=== PATIENT | female | born 1940 | race African-American/Black ===

== ENCOUNTER 2020-07-31 12:38 | Inpatient (IN) | payer MEDICARE, SELFPAY ==
--- NOTE | 2020-07-26 13:53 | P.CONAN_ITS ---
Documented by User: Diana Frank 07/28/20 11:57 HPI - Anesthesia Eval Consult details Narrative: 79yo F for R Tibial ORIF PMFSH Past Medical History Medical History (Updated 07/26/20 @ 13:58 by Diana Frank) Anemia Asthma Back pain COPD (chronic obstructive pulmonary disease) GERD (gastroesophageal reflux disease) Hypertension Osteoarthritis Family History Family history of problems with anesthesia: Unobtainable Surgical History Surgical History (Updated 07/26/20 @ 13:52 by Diana Frank) H/O of rectopexy H/O: hysterectomy History of bowel resection History of cholecystectomy History of Problems with Anesthesia: Unobtainable Social History Social History (Updated 07/31/20 @ 11:57 by Vielka Anton) Smoking Status: Former smoker Second Hand Smoke Exposure: No Use of substances other than those prescribed or required for medical reasons: No Have you been hit, kicked, punched, or otherwise hurt by someone within the past year? If so, by whom?: No Advance Directives: No Advance Directives Information Provided: Yes Advance Directives on File: No Recently lost weight without trying: No Meds Allergies Allergy/AdvReac Type Severity Reaction Status Date / Time codeine [Codeine] Allergy Mild RASH Unverified 07/13/20 14:37 Sulfa (Sulfonamide Allergy Mild HIVES Unverified 07/13/20 14:37 Antibiotics) [Sulfa (Sulfonamides)] acetaminophen Allergy Unknown Verified 12/28/19 00:00 [Tylenol-Codeine #3] ibuprofen [From Motrin] AdvReac Mild STOMACH Unverified 07/13/20 14:37 UPSET Motrin Allergy Unknown RECTAL Uncoded 12/28/19 00:00 BLEEDING, UPSET STOMACH Home Medications Medication Instructions Recorded Confirmed Type albuterol sulfate 1 vial INHALATION QID 07/28/20 07/28/20 History amlodipine 1 tab PO DAILY 07/28/20 07/28/20 History atorvastatin 1 tab PO DAILY 07/28/20 07/28/20 History xxznoeweto-zquuyskciglha-bxtb 1 tab PO BID PRN 07/28/20 07/28/20 History esomeprazole magnesium 1 cap PO DAILY 07/28/20 07/28/20 History fluoxetine 1 cap PO QAM 07/28/20 07/28/20 History hydralazine 1 tab PO BID 07/28/20 07/28/20 History lorazepam 1 tab PO BID 07/28/20 07/28/20 History meclizine 1 - 2 tab PO Q8H PRN 07/28/20 07/28/20 History montelukast 1 tab PO BEDTIME 07/28/20 07/28/20 History nystatin 5 ml PO QID 07/28/20 07/28/20 History oxycodone-acetaminophen 1 tab PO Q8H PRN 07/28/20 07/28/20 History prednisone 10 mg PO DAILY 07/28/20 07/28/20 History sodium chloride 1 vial INHALATION BID 07/28/20 07/28/20 History terazosin 1 cap PO BEDTIME 07/28/20 07/28/20 History Exam Exam Date and Time: July 26, 2020 1353 Pertinent Lab Results Pertinent Lab Results: EKG 07/13/20 = ST @ 101 Laboratory Tests 07/13/20 07/13/20 07/13/20 15:22 23:38 23:38 WBC 8.6 Hgb 8.0 L Hct 25.5 L Plt Count 143 L D PT INR Sodium 144 Potassium 4.8 Chloride 115 H Bicarbonate 21 L BUN 40 H Creatinine 2.38 H Direct Bilirubin 0.2 AST 34 H D ALT 25 Alkaline Phosphatase 108 Total Protein 6.0 L Albumin 3.5 Coronavirus (PCR) NEGATIVE 07/13/20 23:38 WBC Hgb Hct Plt Count PT 11.4 INR 1.0 Sodium Potassium Chloride Bicarbonate BUN Creatinine Direct Bilirubin AST ALT Alkaline Phosphatase Total Protein Albumin Coronavirus (PCR) Assessment and Plan Assessment Anesthesia Assessment: Chart Reviewed Documented by User: Vielka Anton 07/31/20 11:58 [facility] Past Medical History Medical History (Updated 07/26/20 @ 13:58 by Diana Frank) Anemia Asthma Back pain COPD (chronic obstructive pulmonary disease) GERD (gastroesophageal reflux disease) Hypertension Osteoarthritis Family History Family history of problems with anesthesia: No Surgical History Surgical History (Updated 07/26/20 @ 13:52 by Diana Frank) H/O of rectopexy H/O: hysterectomy History of bowel resection History of cholecystectomy History of Problems with Anesthesia: No Social History Social History (Updated 07/31/20 @ 11:57 by Vielka Anton) Smoking Status: Former smoker Second Hand Smoke Exposure: No Use of substances other than those prescribed or required for medical reasons: No Have you been hit, kicked, punched, or otherwise hurt by someone within the past year? If so, by whom?: No Advance Directives: No Advance Directives Information Provided: Yes Advance Directives on File: No Recently lost weight without trying: No Meds Allergies Allergy/AdvReac Type Severity Reaction Status Date / Time codeine [Codeine] Allergy Mild RASH Unverified 07/13/20 14:37 Sulfa (Sulfonamide Allergy Mild HIVES Unverified 07/13/20 14:37 Antibiotics) [Sulfa (Sulfonamides)] acetaminophen Allergy Unknown Verified 12/28/19 00:00 [Tylenol-Codeine #3] ibuprofen [From Motrin] AdvReac Mild STOMACH Unverified 07/13/20 14:37 UPSET Motrin Allergy Unknown RECTAL Uncoded 12/28/19 00:00 BLEEDING, UPSET STOMACH Home Medications Medication Instructions Recorded Confirmed Type albuterol sulfate 1 vial INHALATION QID 07/28/20 07/28/20 History amlodipine 1 tab PO DAILY 07/28/20 07/28/20 History atorvastatin 1 tab PO DAILY 07/28/20 07/28/20 History qhfgbvufyt-qucakhosywfyv-wywv 1 tab PO BID PRN 07/28/20 07/28/20 History esomeprazole magnesium 1 cap PO DAILY 07/28/20 07/28/20 History fluoxetine 1 cap PO QAM 07/28/20 07/28/20 History hydralazine 1 tab PO BID 07/28/20 07/28/20 History lorazepam 1 tab PO BID 07/28/20 07/28/20 History meclizine 1 - 2 tab PO Q8H PRN 07/28/20 07/28/20 History montelukast 1 tab PO BEDTIME 07/28/20 07/28/20 History nystatin 5 ml PO QID 07/28/20 07/28/20 History oxycodone-acetaminophen 1 tab PO Q8H PRN 07/28/20 07/28/20 History prednisone 10 mg PO DAILY 07/28/20 07/28/20 History sodium chloride 1 vial INHALATION BID 07/28/20 07/28/20 History terazosin 1 cap PO BEDTIME 07/28/20 07/28/20 History Exam Height,Weight and Vital Signs: Vital Signs Temp Pulse Resp BP Pulse Ox 07/31/20 10:14 99.9 F 85 18 156/88 H 98 Airway Mallampati Class: II TM Dist: >3cm Neck ROM: Full Loose/Missing/Broken Teeth: Yes Heart: RRR Lungs: CTAB
[2020-07-28 11:07] VITALS: BMI 17.2
[2020-07-31] VITALS (23 sets, daily range): BP systolic 156–202; BP diastolic 79–106; PULSE 72–98; RESP 12–20; TEMP 35.9–37.7; O2SAT 92–99
[2020-07-31] MEDS: Lactated Ringers 1,000 ML 50 ML IVCONT (10:15)
--- NOTE | 2020-07-31 10:37 | FL_ITS ---
EXAMINATION: XR FLUOROSCOPY CLINICAL INFORMATION: ORIF right lateral tibial plateau fracture COMPARISON: Previous x-ray and CT of the right knee 07/13/2020 TECHNIQUE: Fluoroscopic guidance was provided for ORIF of the right lateral tibial plateau fracture. Fluoroscopy time 2.4 minutes. Cumulative dose 7 mgy. 2 saved fluoroscopic images. FINDINGS: There are 2 laterally placed screws and increased attenuation likely representing cement transfixing the lateral tibial plateau fracture with improved alignment. There is arthritis at the medial femoral tibial patellofemoral joints. IMPRESSION: Fluoroscopic guidance for ORIF of lateral tibial plateau fracture.
[2020-07-31 11:15] LABS: Hematocrit 27.3 % (37-47); Hemoglobin 8.4 g/dl (12.0-16.0); Mean Corpuscular HGB Conc 30.8 g/dl (31.0-35.0); Mean Corpuscular Hemoglobin 28.7 pg (27.0-33.0); Mean Corpuscular Volume 93.2 fL (80-98); Mean Platelet Volume 9.4 fL (9.4-12.3); Platelet Count 288 X10*3/uL (160-400); Red Blood Count 2.93 X10*6/uL (4.20-5.50); Red Cell Distribution Width 13.4 % (11.0-16.0); White Blood Count 4.5 X10*3/uL (4.8-10.8)
[2020-07-31 11:46] LABS: Anion Gap 11 (12-20); Blood Urea Nitrogen 32 mg/dL (9-16); Calcium 8.7 mg/dL (8.4-10.2); Carbon Dioxide 21 mmol/L (22-29); Chloride 113 mmol/L (96-108); Creatinine Clr Calc Pharmacy 18.5; Estimated Glomerular Filt Rate 25; Glucose Fasting 86 mg/dL (60-99); Potassium 5.4 mmol/l (3.3-5.1); Sodium 140 mmol/L (135-145)
[2020-07-31] MEDS: 0.9 % Sodium Chloride 500 ML 100 ML IV (13:00)
[2020-07-31] MEDS: oxyCODONE HCl Immed Release 5 MG TABLET PO ×2 (13:01→18:22)
--- NOTE | 2020-07-31 13:03 | PM.PRCOR ---
Brief Operative Note Date of procedure: 08/01/20 Pre-op diagnosis: right knee lateral tibial plateau fracture Post-op diagnosis: same Procedure: ORIF RIGHT LATERAL TIBIAL PLATEAU WITH BONE GRAFT Anesthesia: VIKYA Surgeon: Yessenia Huitron Estimated blood loss (mL): 10 Condition: stable Disposition: PACU
--- NOTE | 2020-07-31 13:08 | P.CONIM_ITS ---
History of Present Illness Data of Consult Service Date: 07/31/20 Requesting physician: Yessenia Huitron Primary Care Provider: Fran Alegria MD [facility] Reason for consult: Medical Management 79 year old woman admitted by Orthopedic surgery. Surgery was unremarkable. Vital signs are stable. She has been able to eat without any nausea or vomiting. a moderate amount of pain. She has no other acute medical complaints at this time Review of Systems Review of Systems: Denies any recent fever chills or decrease in appetite respiratory denies any shortness of breath coverage production cardiovascular is adjustment of any PND or edema gastrointestinal denies any dysphagia abdominal pain nausea vomiting or diarrhea genitourinary denies any dysuria frequency or hematuria musculoskeletal right knee pain status post total knee arthroplasty with pinning neuropsych denies any weakness or seizures all other systems reviewed are negative PENDING SALE TO [facility] Medical History Anemia Asthma Back pain COPD (chronic obstructive pulmonary disease) GERD (gastroesophageal reflux disease) Hypertension Osteoarthritis Pertinent family history: no cardiac disease Surgical History H/O of rectopexy H/O: hysterectomy History of bowel resection History of cholecystectomy Social History Household Members: Family and Other Housing: Apartment Do you presently have visiting nurse or other home services: Yes (physical therapy) Smoking Status: Former smoker Smoked in Last 30 Days: No Second Hand Smoke Exposure: No Use of substances other than those prescribed or required for medical reasons: Yes Substance Use Type: Marijuana Substance Use Frequency: Occasionally Last Used Substance: Unknown Currently Displaying Signs/Symptoms of Drug Intoxication Withdrawal: No Any prior treatment program specific to substance use: No Have you been hit, kicked, punched, or otherwise hurt by someone within the past year? If so, by whom?: No Do you feel safe in your current relationship?: No Current Relationship Is there a partner from a previous relationship who is making you feel unsafe now?: No Are you made to feel afraid or neglected: No Advance Directives: No Advance Directives Information Provided: Yes Advance Directives on File: No Do you have thoughts of harming others: None Do you have a plan to hurt others: No Plan Recently lost weight without trying: Yes Meds Allergies Allergy/AdvReac Type Severity Reaction Status Date / Time codeine [Codeine] Allergy Mild RASH Verified 07/31/20 16:43 Sulfa (Sulfonamide Allergy Mild HIVES Verified 07/31/20 16:43 Antibiotics) [Sulfa (Sulfonamides)] ibuprofen [From Motrin] AdvReac Mild STOMACH Verified 07/31/20 16:43 UPSET Motrin Allergy Unknown RECTAL Uncoded 07/31/20 16:43 BLEEDING, UPSET STOMACH Home Medications Medication Instructions Recorded Confirmed Type albuterol sulfate 1 vial INHALATION QID 07/28/20 07/28/20 History amlodipine 1 tab PO DAILY 07/28/20 07/28/20 History atorvastatin 1 tab PO DAILY 07/28/20 07/28/20 History lpmedywhdx-ztfxwbliodnjp-gkns 1 tab PO BID PRN 07/28/20 07/28/20 History esomeprazole magnesium 1 cap PO DAILY 07/28/20 07/28/20 History fluoxetine 1 cap PO QAM 07/28/20 07/28/20 History hydralazine 1 tab PO BID 07/28/20 07/28/20 History lorazepam 1 tab PO BID 07/28/20 07/28/20 History meclizine 1 - 2 tab PO Q8H PRN 07/28/20 07/28/20 History montelukast 1 tab PO BEDTIME 07/28/20 07/28/20 History nystatin 5 ml PO QID 07/28/20 07/28/20 History oxycodone-acetaminophen 1 tab PO Q8H PRN 07/28/20 07/28/20 History prednisone 10 mg PO DAILY 07/28/20 07/28/20 History sodium chloride 1 vial INHALATION BID 07/28/20 07/28/20 History terazosin 1 cap PO BEDTIME 07/28/20 07/28/20 History Physical Exam Vital Signs and Narrative: Vital Signs: Last Vital Signs Temp 98.1 F 07/31/20 12:49 Pulse 90 07/31/20 12:49 Resp 12 07/31/20 12:49 BP 166/99 H 07/31/20 12:49 Pulse Ox 97 07/31/20 12:49 Body Mass Index 17.2 Appearing in no acute distress head is normocephalic atraumatic eyes pupils are PERRLA sclera is anicteric mouth throat mucous membranes are intact and moist neck is supple no lymphadenopathy, no JVD noted lung sounds are clear to auscultation heart regular rate rhythm, clear S1, S2 positive bowel sounds, abdomen is soft, nontender musculoskeletal status post right total knee arthroplasty. Brace intact dressing clean dry and intact. neuro patient is alert x3, no focal deficits Results Labs Labs: Laboratory Tests 07/31/20 07/31/20 10:32 10:32 WBC 4.5 L RBC 2.93 L Hgb 8.4 L Hct 27.3 L MCV 93.2 MCH 28.7 MCHC 30.8 L RDW 13.4 Plt Count 288 MPV 9.4 Absolute Nucleated RBC 0.000 Nucleated RBC % (auto) 0.0 Sodium 140 Potassium 5.4 H Chloride 113 H Carbon Dioxide 21 L Anion Gap 11 L BUN 32 H Creatinine 1.90 H Estim Creat Clear Calc 18.5 Estimated GFR 25 Fasting Glucose 86 Calcium 8.7 Assessment and Plan (1) COPD (chronic obstructive pulmonary disease): Status: Acute (2) Hypertension: Status: Acute (3) Hyperlipidemia: Status: Inactive (4) GERD (gastroesophageal reflux disease): Status: Inactive 79-year-old woman status post right knee arthroplasty. Right knee arthroplasty. Management as per surgical team. Pain management. Hypertension. Stable blood pressure. Continue home medications. COPD. No exacerbation. Continue albuterol as needed. Hyperlipidemia. Continue statin. DVT prophylaxis with full-dose aspirin Discussed with Dr. Xochitl Mendoza code
[2020-07-31] MEDS: Morphine Sulfate 2 MG/ML CARTRIDGE IVPUSH ×4 (14:00→21:45)
[2020-07-31] MEDS: 0.9 % Sodium Chloride 1,000 ML 80 ML IVCONT (14:49)
[2020-07-31] MEDS: ceFAZolin Sodium/Dextrose,Iso 2 GM/50 ML PIGGYBACK IV (18:23)
[2020-07-31] MEDS: Acetaminophen 325 MG TABLET 650 MG PO (21:41)
[2020-08-01] VITALS (18 sets, daily range): BP systolic 134–169; BP diastolic 66–89; PULSE 81–109; RESP 17–19; TEMP 36.2–36.8; O2SAT 96–100
[2020-08-01] MEDS: 0.9 % Sodium Chloride Flush 3 ML SYRINGE 2 ML IVFLUSH ×4 (00:08→15:33)
[2020-08-01] MEDS: Morphine Sulfate 2 MG/ML CARTRIDGE IVPUSH ×7 (00:09→21:18)
[2020-08-01] MEDS: oxyCODONE HCl Immed Release 5 MG TABLET PO ×4 (01:41→20:07)
[2020-08-01] MEDS: Acetaminophen 325 MG TABLET 650 MG PO ×4 (02:39→20:12)
[2020-08-01] MEDS: 0.9 % Sodium Chloride 1,000 ML 80 ML IVCONT (02:56)
[2020-08-01 06:56] LABS: Hematocrit 24.5 % (37-47); Hemoglobin 7.6 g/dl (12.0-16.0)
[2020-08-01] MEDS: amLODIPine Besylate 5 MG TABLET PO (10:13)
--- NOTE | 2020-08-01 12:24 | MHC.CM.PN ---
nurse medicare specialist note electronic medical record reviewed along with case discussed on multiple disciplianry rounds and with orthopedic surgical pa, and physical /'occupatyional theaprist , met with patient she was very alert and orientated x3 , cali was sitting in her achair and had just fininshed eating her breakfeast, she reported denis the address we have for her was incorrect new address [address] and phone -[phone] she informed me that her health care proxy was her daughter per mcguire [phone] she lives with her sister in law in a house 2 floor 1/2 bathroom downstairs and full bathroom and her bedroom updstairs she has a cane ,walker , shoeeeewer chair and shower bars . she reported to be that she has igor ctive with the [facility] for nrusing and home phsyical thepary and [facility] are for 1 hour daily for home health aide , she confirmed her pcp as dr yuli burk. she has been in rehab at [facility] she would ra5her go home vs rehab , but after talking with her daughter and patient she is wiling to go back to [facility] based on physical /ccupational recomendatiuns , she reuqires assistance with ad[facility] at [facility] she has a nebuizer for her copd and puffers for her asthma disc harge plan retunr back to [facility] post discharge from rtehab [facility] for ([id number]) and resumption ooooooof her servcies with [facility] home health aide transportation action bls vs action wheelchair van (based on patient needs) medicare imm reviewed and given to her
--- NOTE | 2020-08-01 14:38 | P.PNOP_ITS ---
Subjective Subjective Interval history: POD 1 s/p RT knee ORIF tibial plateau. She has some pain in the knee but tolerating well. Denies chest pain. SOB. palpitations. Physical Exam Vital Signs and I&O and Narrative: Vital Signs and I&O: Vital Signs Temp 98.3 F 08/01/20 12:00 Pulse 88 08/01/20 12:00 Resp 18 08/01/20 12:00 BP 138/71 08/01/20 12:00 Pulse Ox 97 08/01/20 12:00 Intake & Output 07/31/20 08/01/20 08/01/20 18:59 06:59 18:59 Intake Total 1104 / 2239.333 1135.333 / 2239.33 3 Output Total 600 / 1354 754 / 1354 1100 / 1100 Balance 504 / 885.333 381.333 / 885.333 -1100 / -1100 Urine Output (Aver age ml/kg/hr) 1.00 1.17 1.84 Intake: Intake, Oral Mariya unt 100 / 220 120 / 220 Intake, IV Amoun t 1004 / 2019.333 1015.333 / 2019.33 3 ceFAZolin Sodi um/Dextrose,Iso 2 50 / 50 gm In 50 ml @ 100 mls/hr IV ONCE@1700 ONE Rx#:[id number] 0.9 % Sodium C hloride 1,000 ml 4 / 969.333 965.333 / 969.333 @ 80 mls/hr IV CONT .[id number] [facility] Rx#:[id number] Lactated Ringe rs 1,000 ml @ 50 1000 / 1000 mls/hr IVCONT .Q20H [facility] Rx#: [id number] Output: Output, Urine Am ount 600 / 1303 703 / 1303 1100 / 1100 Output, Post Voi d Residual 51 / 51 Amount Other: Meal Refused No NPO No Breakfast % Eate n 75% Dinner % Eaten 100% Number of Incont inent Voids 51 Weight of Urine Diapers 650 Urine Bedpan Bedpan Urine Color Pale Yellow Tea Body Mass Index 17.2 Const: General: cooperative, healthy appearing and no acute distress Resp: Effort & Inspection: normal respiratory effort and able to speak in complete sentences Cardio: Rate: regular rate Peripheral pulses: Peripheral pulses 2+ throughout GI: Inspection: Yes normal to inspection Palpation (GI): Soft to palpation Skin: General skin exam: no rashes or lesions noted Extrem: Other: Right knee skin intact. no erythema, mild edema, calf supple non tender Progress Note: A&P Assessment and plan (1) Tibial plateau fracture, right: Status: Acute Assessment and Plan: Cont pain mgmnt PT/OT-NWB RLE Immob in place asa for dvt ppx dispo planning-PT eval/pain mgmnt Fall Risk Details Current Medications: Current Medications Generic Name Dose Route Start Last Admin Trade Name Freq PRN Reason Stop Dose Admin Acetaminophen 650 mg 07/31/20 11:58 Acetaminophen 325 Mg Tablet PO ONCE PRN Pain, Mild (Pain Scale 1-3) Acetaminophen 650 mg 07/31/20 14:00 08/01/20 07:50 Acetaminophen 325 Mg Tablet PO 650 mg Q6H TONIO Administration Acetaminophen/Butalbital/Caffeine 1 tab 07/31/20 23:34 08/01/20 00:14 Butalb/Acetamin/Caff 50/325/40 1 Tab Tablet PO 1 tab BID PRN Administration headache Albuterol Sulfate 2.5 mg 07/31/20 10:04 Albuterol Sulfate (0.083%) 2.5 Mg/3 Ml Vial.Neb INHALE ONCE PRN Shortness of Breath/Wheezing Albuterol Sulfate 2.5 mg 07/31/20 11:58 Albuterol Sulfate (0.083%) 2.5 Mg/3 Ml Vial.Neb INHALE ONCE PRN Wheezing Albuterol Sulfate 2.5 mg 08/01/20 13:00 Albuterol Sulfate (0.083%) 2.5 Mg/3 Ml Vial.Neb INHALE RQID TONIO Amlodipine Besylate 5 mg 08/01/20 09:00 08/01/20 10:13 Amlodipine Besylate 5 Mg Tablet PO 5 mg DAILY TONIO Administration Protocol Aspirin 325 mg 08/01/20 22:00 Aspirin 325 Mg Tablet PO BID [facility] Atorvastatin Calcium mg 08/02/20 09:00 Atorvastatin Calcium 80 Mg Tablet PO DAILY [facility] Doxazosin Mesylate 1 mg 08/01/20 21:00 Doxazosin Mesylate 1 Mg Tablet PO BEDTIME [facility] Fluoxetine HCl 40 mg 08/02/20 09:00 Fluoxetine Hcl 20 Mg Capsule PO DAILY [facility] Hydralazine HCl 10 mg 08/01/20 21:00 Hydralazine Hcl 10 Mg Tablet PO BID [facility] Protocol Montelukast Sodium 10 mg 08/01/20 21:00 Montelukast Sodium 10 Mg Tablet PO BEDTIME [facility] Morphine Sulfate 2 mg 07/31/20 12:40 08/01/20 10:14 Morphine Sulfate 2 Mg/Ml Cartridge IVPUSH 2 mg Q2H PRN Administration Pain, Severe (Pain Scale 7-10) Non-Formulary Medication 1 cap 08/02/20 09:00 Esomeprazole Magnesium PO DAILY [facility] Ondansetron HCl 4 mg 07/31/20 11:58 Ondansetron Hcl 4 Mg/2 Ml Vial IVPUSH ONCE PRN Nausea and Vomiting Ondansetron HCl 4 mg 07/31/20 12:40 Ondansetron Hcl 4 Mg/2 Ml Vial IVPUSH Q8H PRN Nausea and Vomiting Oxycodone HCl 5 mg 07/31/20 11:58 Oxycodone Hcl Immed Release 5 Mg Tablet PO ONCE PRN Pain, Mild (Pain Scale 1-3) Oxycodone HCl 5 mg 07/31/20 12:40 08/01/20 06:43 Oxycodone Hcl Immed Release 5 Mg Tablet PO 5 mg Q6H [facility] Administration Sodium Chloride 2 ml 07/31/20 16:00 08/01/20 07:49 0.9 % Sodium Chloride Flush 3 Ml Syringe IVFLUSH 2 ml QSHIFT TONIO Administration Time Spent With Patient Time: Total time spent is greater than 50% in coordination of care (as documented) at patient's floor/unit and/or counseling patient: Time with patient: 15 - 24 minutes
--- NOTE | 2020-08-01 15:24 | HO.POSTANES ---
Post Anesthesia Evaluation Post Anesthesia Evaluation Vital Signs: Vital Signs Temp Pulse Resp BP Pulse Ox 08/01/20 15:14 98.3 F 101 H 19 138/70 96 08/01/20 12:00 98.3 F 88 18 138/71 97 08/01/20 10:13 87 134/66 08/01/20 10:11 87 18 134/66 08/01/20 09:42 86 158/75 H 98 08/01/20 08:00 98.1 F 86 18 158/75 H 98 08/01/20 05:10 17 08/01/20 04:00 97.6 F 81 19 169/81 H 98 Anesthesia: General Mental Status: Awake Pain Control: Satisfactory Nausea/Vomiting: None Hydration: Adequate Anesthesia-Related Issues: No Anes. Related Issues
--- NOTE | 2020-08-01 16:41 | HO.PM.IMPN ---
Subjective Subjective Date of Service: 08/01/20 Interval History: admitted for elective right knee surgery, this a.m. patient complaining of right knee pain received pain medication few minutes ago. Patient offers no other acute complaints. Review of Systems [employer] no headache, no dizziness. CVS no chest pain, no palpitations. Gastrointestinal no nausea, no vomiting no diarrhea. Physical Exam Vital Signs and I&O and Narrative: Vital Signs and I&O: Vital Signs Temp 97.2 F 08/01/20 16:15 Pulse 88 08/01/20 16:15 Resp 18 08/01/20 16:15 BP 148/68 H 08/01/20 16:15 Pulse Ox 100 08/01/20 16:15 Intake & Output 07/31/20 08/01/20 08/01/20 18:59 06:59 18:59 Intake Total 1104 / 2239.333 1135.333 / 2239.33 3 1960 / 1959 Output Total 600 / 1354 754 / 1354 1800 / 1800 Balance 504 / 885.333 381.333 / 885.333 160 / 160 Urine Output (Aver age ml/kg/hr) 1.00 1.17 3.01 Intake: Intake, Oral [place] unt 100 / 220 120 / 220 960 / 960 Intake, IV Amoun t 1004 / 2019.333 1015.333 / 2019.33 3 1000 / 1000 ceFAZolin Sodi um/Dextrose,Iso 2 50 / 50 gm In 50 ml @ 100 mls/hr IV ONCE@1700 ONE Rx#:[id number] 0.9 % Sodium C hloride 1,000 ml 4 / 969.333 965.333 / 842.619 7321 / 1000 @ 80 mls/hr IV CONT .[id number] [facility] Rx#:[id number] Lactated Ringe rs 1,000 ml @ 50 1000 / 1000 mls/hr IVCONT .Q20H [facility] Rx#: [id number] Output: Output, Urine Am ount 600 / 1303 703 / 1303 1800 / 1800 Output, Post Voi d Residual 51 / 51 Amount Other: Meal Refused No Yes NPO No Yes Breakfast % Eate n 100% Lunch % Eaten 100% Dinner % Eaten 100% Number of Incont inent Voids 51 2 Weight of Urine Diapers 650 Urine Bedpan Bedpan Urine Color Pale Yellow Tea Body Mass Index 17.2 Neck supple ,no JVD noted lung clear to auscultation, no respiratory distress heart regular rate rhythm, clear S1, S2 Gastrointestinal positive bowel sounds, abdomen is soft, nontender musculoskeletal Brace to right leg, dressing clean dry and intact. neuro patient is alert x3, no focal deficits Objective Data Current Medications Generic Name Dose Route Start Last Admin Trade Name Geovanniq PRN Reason Stop Dose Admin Acetaminophen 650 mg 07/31/20 11:58 Acetaminophen 325 Mg Tablet PO ONCE PRN Pain, Mild (Pain Scale 1-3) Acetaminophen 650 mg 07/31/20 14:00 08/01/20 14:41 Acetaminophen 325 Mg Tablet PO 650 mg Q6H [facility] Administration Acetaminophen/Butalbital/Caffeine 1 tab 07/31/20 23:34 08/01/20 00:14 Butalb/Acetamin/Caff 50/325/40 1 Tab Tablet PO 1 tab BID PRN Administration headache Albuterol Sulfate 2.5 mg 07/31/20 10:04 Albuterol Sulfate (0.083%) 2.5 Mg/3 Ml Vial.Neb INHALE ONCE PRN Shortness of Breath/Wheezing Albuterol Sulfate 2.5 mg 07/31/20 11:58 Albuterol Sulfate (0.083%) 2.5 Mg/3 Ml Vial.Neb INHALE ONCE PRN Wheezing Albuterol Sulfate 2.5 mg 08/01/20 13:00 Albuterol Sulfate (0.083%) 2.5 Mg/3 Ml Vial.Neb INHALE RQID [facility]ONIO Amlodipine Besylate 5 mg 08/01/20 09:00 08/01/20 10:13 Amlodipine Besylate 5 Mg Tablet PO 5 mg DAILY [facility] Administration Protocol Aspirin 325 mg 08/01/20 22:00 Aspirin 325 Mg Tablet PO BID [facility] Atorvastatin Calcium mg 08/02/20 09:00 Atorvastatin Calcium 80 Mg Tablet PO DAILY [facility] Doxazosin Mesylate 1 mg 08/01/20 21:00 Doxazosin Mesylate 1 Mg Tablet PO BEDTIME [facility] Fluoxetine HCl 40 mg 08/02/20 09:00 Fluoxetine Hcl 20 Mg Capsule PO DAILY [facility] Hydralazine HCl 10 mg 08/01/20 21:00 Hydralazine Hcl 10 Mg Tablet PO BID [facility] Protocol Montelukast Sodium 10 mg 08/01/20 21:00 Montelukast Sodium 10 Mg Tablet PO BEDTIME [facility] Morphine Sulfate 2 mg 07/31/20 12:40 08/01/20 15:55 Morphine Sulfate 2 Mg/Ml Cartridge IVPUSH 2 mg Q2H PRN Administration Pain, Severe (Pain Scale 7-10) Non-Formulary Medication 1 cap 08/02/20 09:00 Esomeprazole Magnesium PO DAILY [facility] Ondansetron HCl 4 mg 07/31/20 11:58 Ondansetron Hcl 4 Mg/2 Ml Vial IVPUSH ONCE PRN Nausea and Vomiting Ondansetron HCl 4 mg 07/31/20 12:40 Ondansetron Hcl 4 Mg/2 Ml Vial IVPUSH Q8H PRN Nausea and Vomiting Oxycodone HCl 5 mg 07/31/20 11:58 Oxycodone Hcl Immed Release 5 Mg Tablet PO ONCE PRN Pain, Mild (Pain Scale 1-3) Oxycodone HCl 5 mg 07/31/20 12:40 08/01/20 14:40 Oxycodone Hcl Immed Release 5 Mg Tablet PO 5 mg Q6H [facility] Administration Sodium Chloride 2 ml 07/31/20 16:00 08/01/20 15:33 0.9 % Sodium Chloride Flush 3 Ml Syringe IVFLUSH 2 ml QSHIFT [facility]ONIO Administration Labs CBC & Chem 7: 08/01/20 06:08 07/31/20 10:32 Assessment and Plan (1) Tibial plateau fracture, right: Status: Acute (2) COPD (chronic obstructive pulmonary disease): Status: Acute (3) Hypertension: Status: Acute (4) Chronic anemia: Status: Acute Assessment and Plan: 79-year-old woman status post right knee arthroplasty. Right knee arthroplasty. due to right knee lateral tibial plateau fracture postoperative day 1 Management as per surgical team. will encourage incentive spirometry out of bed anticoagulation per surgery acute on chronic anemia patient is aware that she is chronically anemic but not aware of her diagnosis prior iron studies B12 folate are within normal range since patient is asymptomatic will hold off on transfusion. Hypertension. blood pressure elevated will resume home medication Norvasc 5 mg at home patient take Norvasc 10 mg and hydralazine 10 mg b.i.d. follow blood pressure closely COPD. No exacerbation. Continue albuterol as needed. Hyperlipidemia. Continue statin. DVT prophylaxis with full-dose aspirin Full code
[2020-08-01] MEDS: Albuterol Sulfate (0.083%) 2.5 MG/3 ML VIAL.NEB INHALE (20:05)
[2020-08-01] MEDS: Montelukast Sodium 10 MG TABLET PO (21:21)
[2020-08-01] MEDS: hydrALAZINE HCl 10 MG TABLET PO (21:21)
[2020-08-01] MEDS: Aspirin 325 MG TABLET PO (21:22)
[2020-08-01] MEDS: Doxazosin Mesylate 1 MG TABLET PO (21:22)
[2020-08-02] VITALS (9 sets, daily range): BP systolic 100–151; BP diastolic 49–90; PULSE 92–111; RESP 16–19; TEMP 36.1–36.9; O2SAT 95–100
[2020-08-02] MEDS: 0.9 % Sodium Chloride Flush 3 ML SYRINGE 2 ML IVFLUSH ×3 (00:21→18:08)
[2020-08-02] MEDS: Morphine Sulfate 2 MG/ML CARTRIDGE IVPUSH ×6 (00:27→21:30)
[2020-08-02] MEDS: Acetaminophen 325 MG TABLET 650 MG PO ×4 (02:15→21:30)
[2020-08-02] MEDS: oxyCODONE HCl Immed Release 5 MG TABLET PO ×3 (05:36→19:11)
[2020-08-02 06:54] LABS: Hematocrit 25.5 % (37-47); Hemoglobin 7.8 g/dl (12.0-16.0)
[2020-08-02] MEDS: Aspirin 325 MG TABLET PO ×2 (08:37→21:30)
[2020-08-02] MEDS: Omeprazole 20 MG CAPSULE.DR PO (08:37)
[2020-08-02] MEDS: FLUoxetine HCl 20 MG CAPSULE 40 MG PO (08:38)
[2020-08-02] MEDS: amLODIPine Besylate 5 MG TABLET PO (08:38)
[2020-08-02] MEDS: Atorvastatin Calcium 10 MG TABLET PO (08:38)
[2020-08-02] MEDS: hydrALAZINE HCl 10 MG TABLET PO ×2 (08:38→21:29)
[2020-08-02] MEDS: Albuterol Sulfate (0.083%) 2.5 MG/3 ML VIAL.NEB INHALE ×3 (11:54→19:46)
--- NOTE | 2020-08-02 12:50 | P.PNIM_ITS ---
Subjective Subjective Date of Service: 08/02/20 Interval History: admitted to orthopedic service due to right tibial plateau fracture patient complaining of right leg pain and constipation otherwise denies any other acute symptoms of chest pain palpitation, lightheadedness or dizziness. Review of Systems General no headache no dizziness no fever chills. CVS no chest pain, no palpitation. Respiratory no cough no sputum production no respiratory distress. Gastrointestinal no nausea no vomiting, no abdominal pain Complaining of constipation. Physical Exam Vital Signs and I&O and Narrative: Vital Signs and I&O: Vital Signs Temp 97.6 F 08/02/20 11:48 Pulse 95 08/02/20 11:48 Resp 19 08/02/20 11:48 BP 112/53 L 08/02/20 11:48 Pulse Ox 95 08/02/20 11:48 Intake & Output 08/01/20 08/02/20 08/02/20 18:59 06:59 18:59 Intake Total 1960 / 2580 620 / 2580 Output Total 2300 / 3860 1560 / 3860 Balance -340 / -1280 -940 / -1280 Urine Output (Aver age ml/kg/hr) 3.84 2.61 Intake: Intake, Oral [place] unt 960 / 1580 620 / 1580 Intake, IV Amoun t 1000 / 1000 0.9 % Sodium C hloride 1,000 ml 1000 / 1000 @ 80 mls/hr IV CONT .[id number] [facility] Rx#:[id number] Output: Output, Urine Am ount 2300 / 3860 1560 / 3860 Other: Meal Refused Yes NPO Yes Breakfast % Eate n 100% Lunch % Eaten 100% Dinner % Eaten 100% Evening Snack % Eaten 100 Number of Incont inent Voids 2 Urine Bedside Commode Bedside Commode Urine Color Yellow Yellow Body Mass Index 17.2 General patient resting comfortably in no acute distress. Neck is supple no JVD. CVS regular rate rhythm, Respiratory lungs clear to auscultation, no respiratory distress, no wheeze, no rhonchi. Gastrointestinal abdomen soft, nontender, bowel sounds audible, no no guarding , no rigidity. Extremities right knee dressing in place, no swelling. Neuro nonfocal ,speech clear. Skin no rash Objective Data Current Medications Generic Name Dose Route Start Last Admin Trade Name Freq PRN Reason Stop Dose Admin Acetaminophen 650 mg 07/31/20 11:58 Acetaminophen 325 Mg Tablet PO ONCE PRN Pain, Mild (Pain Scale 1-3) Acetaminophen 650 mg 07/31/20 14:00 08/02/20 08:38 Acetaminophen 325 Mg Tablet PO 650 mg Q6H [facility] Administration Acetaminophen/Butalbital/Caffeine 1 tab 07/31/20 23:34 08/01/20 00:14 Butalb/Acetamin/Caff 50/325/40 1 Tab Tablet PO 1 tab BID PRN Administration headache Albuterol Sulfate 2.5 mg 07/31/20 10:04 Albuterol Sulfate (0.083%) 2.5 Mg/3 Ml Vial.Neb INHALE ONCE PRN Shortness of Breath/Wheezing Albuterol Sulfate 2.5 mg 07/31/20 11:58 Albuterol Sulfate (0.083%) 2.5 Mg/3 Ml Vial.Neb INHALE ONCE PRN Wheezing Albuterol Sulfate 2.5 mg 08/01/20 13:00 08/02/20 12:02 Albuterol Sulfate (0.083%) 2.5 Mg/3 Ml Vial.Neb INHALE Not Given RQID [facility] Amlodipine Besylate 5 mg 08/01/20 09:00 08/02/20 08:38 Amlodipine Besylate 5 Mg Tablet PO 5 mg DAILY [facility] Administration Protocol Aspirin 325 mg 08/01/20 22:00 08/02/20 08:37 Aspirin 325 Mg Tablet PO 325 mg BID [facility] Administration Atorvastatin Calcium 10 mg 08/02/20 09:00 08/02/20 08:38 Atorvastatin Calcium 10 Mg Tablet PO 10 mg DAILY [facility] Administration Doxazosin Mesylate 1 mg 08/01/20 21:00 08/01/20 21:22 Doxazosin Mesylate 1 Mg Tablet PO 1 mg BEDTIME [facility] Administration Fluoxetine HCl 40 mg 08/02/20 09:00 08/02/20 08:38 Fluoxetine Hcl 20 Mg Capsule PO 40 mg DAILY [facility] Administration Hydralazine HCl 10 mg 08/01/20 21:00 08/02/20 08:38 Hydralazine Hcl 10 Mg Tablet PO 10 mg BID [facility] Administration Protocol Montelukast Sodium 10 mg 08/01/20 21:00 08/01/20 21:21 Montelukast Sodium 10 Mg Tablet PO 10 mg BEDTIME [facility] Administration Morphine Sulfate 2 mg 07/31/20 12:40 08/02/20 08:44 Morphine Sulfate 2 Mg/Ml Cartridge IVPUSH 2 mg Q2H PRN Administration Pain, Severe (Pain Scale 7-10) Omeprazole 20 mg 08/02/20 06:45 08/02/20 08:37 Omeprazole 20 Mg Capsule.Dr PO 20 mg DAILY@0600 [facility] Administration Ondansetron HCl 4 mg 07/31/20 11:58 Ondansetron Hcl 4 Mg/2 Ml Vial IVPUSH ONCE PRN Nausea and Vomiting Ondansetron HCl 4 mg 07/31/20 12:40 Ondansetron Hcl 4 Mg/2 Ml Vial IVPUSH Q8H PRN Nausea and Vomiting Oxycodone HCl 5 mg 07/31/20 11:58 Oxycodone Hcl Immed Release 5 Mg Tablet PO ONCE PRN Pain, Mild (Pain Scale 1-3) Oxycodone HCl 5 mg 07/31/20 12:40 08/02/20 05:36 Oxycodone Hcl Immed Release 5 Mg Tablet PO 5 mg Q6H [facility] Administration Sodium Chloride 2 ml 07/31/20 16:00 08/02/20 08:39 0.9 % Sodium Chloride Flush 3 Ml Syringe IVFLUSH 2 ml QSHIFT [facility] Administration Labs CBC & Chem 7: 08/02/20 06:21 07/31/20 10:32 Assessment and Plan (1) Tibial plateau fracture, right: Status: Acute (2) Chronic anemia: Status: Acute (3) COPD (chronic obstructive pulmonary disease): Status: Acute Assessment and Plan: Right knee arthroplasty. due to right knee lateral tibial plateau fracture postoperative day 2 Management as per surgical team. will encourage incentive spirometry out of bed anticoagulation per surgery, Will add stool softeners due to constipation and increased dose of oxycodone to 7.5 mg due to persistent pain. acute on chronic anemia patient is aware that she is chronically anemic but not aware of her diagnosis prior iron studies B12 folate are within normal range since patient is asymptomatic will hold off on transfusion, repeat hematocrit remains stable. Hypertension. blood pressure is stable continue Norvasc 5 mg, at home patient take Norvasc 10 mg, continue hydralazine 10 mg b.i.d. follow blood pressure closely if noted to have elevated blood pressure will resume Norvasc 10 mg. COPD. No exacerbation. Continue albuterol as needed. Hyperlipidemia. Continue statin. DVT prophylaxis with full-dose aspirin disposition to rehab facility as per Ortho recommendation
[2020-08-02] MEDS: Docusate Sodium 100 MG CAPSULE 200 MG PO (13:37)
--- NOTE | 2020-08-02 14:19 | PM.PNORT ---
Subjective Subjective Interval history: postop day 2 status post ORIF right tibial plateau fracture. No overnight events. Her H and H is low but this has been determined to be chronic anemia. She has been out of bed working with therapy with no issues. Denies shortness of breath or chest pain. Physical Exam Vital Signs and I&O and Narrative: Vital Signs and I&O: Vital Signs Temp 97.6 F 08/02/20 11:48 Pulse 95 08/02/20 11:48 Resp 19 08/02/20 11:48 BP 112/53 L 08/02/20 11:48 Pulse Ox 95 08/02/20 11:48 Intake & Output 08/01/20 08/02/20 08/02/20 18:59 06:59 18:59 Intake Total 1960 / 2580 620 / 2580 Output Total 2300 / 3860 1560 / 3860 Balance -340 / -1280 -940 / -1280 Urine Output (Aver age ml/kg/hr) 3.84 2.61 Intake: Intake, Oral [place] unt 960 / 1580 620 / 1580 Intake, IV Amoun t 1000 / 1000 0.9 % Sodium C hloride 1,000 ml 1000 / 1000 @ 80 mls/hr IV CONT .[id number] [facility] Rx#:[id number] Output: Output, Urine Am ount 2300 / 3860 1560 / 3860 Other: Meal Refused Yes NPO Yes Breakfast % Eate n 100% Lunch % Eaten 100% Dinner % Eaten 100% Evening Snack % Eaten 100 Number of Incont inent Voids 2 Urine Bedside Commode Bedside Commode Urine Color Yellow Yellow Body Mass Index 17.2 Const: General: cooperative, healthy appearing and no acute distress Resp: Effort & Inspection: normal respiratory effort and able to speak in complete sentences Cardio: Rate: regular rate Peripheral pulses: Peripheral pulses 2+ throughout GI: Inspection: Yes normal to inspection Palpation (GI): Soft to palpation Skin: General skin exam: no rashes or lesions noted Extrem: Other: right knee skin intact. No erythema mild swelling. Progress Note: A&P Assessment and plan (1) Tibial plateau fracture, right: Status: Acute Assessment and Plan: Continue pain management monitor H&H continue PT disposition planning- pending Covid test and insurance auth Fall Risk Details Current Medications: Current Medications Generic Name Dose Route Start Last Admin Trade Name Freq PRN Reason Stop Dose Admin Acetaminophen 650 mg 07/31/20 11:58 Acetaminophen 325 Mg Tablet PO ONCE PRN Pain, Mild (Pain Scale 1-3) Acetaminophen 650 mg 07/31/20 14:00 08/02/20 13:37 Acetaminophen 325 Mg Tablet PO 650 mg Q6H [facility] Administration Acetaminophen/Butalbital/Caffeine 1 tab 07/31/20 23:34 08/01/20 00:14 Butalb/Acetamin/Caff 50/325/40 1 Tab Tablet PO 1 tab BID PRN Administration headache Albuterol Sulfate 2.5 mg 07/31/20 10:04 Albuterol Sulfate (0.083%) 2.5 Mg/3 Ml Vial.Neb INHALE ONCE PRN Shortness of Breath/Wheezing Albuterol Sulfate 2.5 mg 07/31/20 11:58 Albuterol Sulfate (0.083%) 2.5 Mg/3 Ml Vial.Neb INHALE ONCE PRN Wheezing Albuterol Sulfate 2.5 mg 08/01/20 13:00 08/02/20 12:02 Albuterol Sulfate (0.083%) 2.5 Mg/3 Ml Vial.Neb INHALE Not Given RQID [facility]IO Amlodipine Besylate 5 mg 08/01/20 09:00 08/02/20 08:38 Amlodipine Besylate 5 Mg Tablet PO 5 mg DAILY [facility] Administration Protocol Aspirin 325 mg 08/01/20 22:00 08/02/20 08:37 Aspirin 325 Mg Tablet PO 325 mg BID [facility] Administration Atorvastatin Calcium 10 mg 08/02/20 09:00 08/02/20 08:38 Atorvastatin Calcium 10 Mg Tablet PO 10 mg DAILY [facility] Administration Docusate Sodium 200 mg 08/02/20 13:15 08/02/20 13:37 Docusate Sodium 100 Mg Capsule PO 200 mg DAILY [facility] Administration Doxazosin Mesylate 1 mg 08/01/20 21:00 08/01/20 21:22 Doxazosin Mesylate 1 Mg Tablet PO 1 mg BEDTIME [facility] Administration Fluoxetine HCl 40 mg 08/02/20 09:00 08/02/20 08:38 Fluoxetine Hcl 20 Mg Capsule PO 40 mg DAILY [facility] Administration Hydralazine HCl 10 mg 08/01/20 21:00 08/02/20 08:38 Hydralazine Hcl 10 Mg Tablet PO 10 mg BID [facility]ONIO Administration Protocol Montelukast Sodium 10 mg 08/01/20 21:00 08/01/20 21:21 Montelukast Sodium 10 Mg Tablet PO 10 mg BEDTIME [facility] Administration Morphine Sulfate 2 mg 07/31/20 12:40 08/02/20 13:44 Morphine Sulfate 2 Mg/Ml Cartridge IVPUSH 2 mg Q2H PRN Administration Pain, Severe (Pain Scale 7-10) Omeprazole 20 mg 08/02/20 06:45 08/02/20 08:37 Omeprazole 20 Mg Capsule.Dr PO 20 mg DAILY@0600 [facility] Administration Ondansetron HCl 4 mg 07/31/20 11:58 Ondansetron Hcl 4 Mg/2 Ml Vial IVPUSH ONCE PRN Nausea and Vomiting Ondansetron HCl 4 mg 07/31/20 12:40 Ondansetron Hcl 4 Mg/2 Ml Vial IVPUSH Q8H PRN Nausea and Vomiting Oxycodone HCl 5 mg 07/31/20 11:58 Oxycodone Hcl Immed Release 5 Mg Tablet PO ONCE PRN Pain, Mild (Pain Scale 1-3) Oxycodone HCl 5 mg 07/31/20 12:40 08/02/20 13:37 Oxycodone Hcl Immed Release 5 Mg Tablet PO 5 mg Q6H [facility] Administration Senna 17.2 mg 08/02/20 13:06 Sennosides 8.6 Mg Tablet PO Q24H PRN Sodium Chloride 2 ml 07/31/20 16:00 08/02/20 08:39 0.9 % Sodium Chloride Flush 3 Ml Syringe IVFLUSH 2 ml QSHIFT TONIO Administration Time Spent With Patient Time: Total time spent is greater than 50% in coordination of care (as documented) at patient's floor/unit and/or counseling patient: Time with patient: less than 15 minutes
[2020-08-02] MEDS: Doxazosin Mesylate 1 MG TABLET PO (21:29)
[2020-08-02] MEDS: Montelukast Sodium 10 MG TABLET PO (21:29)
--- NOTE | 2020-08-02 23:47 | OP_ITS ---
SURGEON: Yessenia Huitron MD PREOPERATIVE DIAGNOSIS: Right knee lateral tibial plateau fracture. POSTOPERATIVE DIAGNOSIS: Right knee lateral tibial plateau fracture. PROCEDURE PERFORMED: Open reduction and internal fixation of right lateral tibial plateau fracture with bone graft. ESTIMATED BLOOD LOSS: COMPLICATIONS: ANESTHESIA: ASSISTANTS: SPECIMENS: CLINICAL NOTE: This lady had fallen nearly a couple of weeks ago, injuring her knee. She suffered the above-noted injury. After explaining the risks, benefits, and alternatives, and answering all the questions and being medically cleared, it was mutually agreed upon to carry out the following procedure. DESCRIPTION OF PROCEDURE: Under a general anesthetic, the patient was placed supine on the operating table. Pneumatic tourniquet cuff was placed around the upper right thigh, inflated to 300 mmHg at the beginning of the case. The right knee was then prepped and draped in standard fashion with the right leg free. Surgical time-out was then performed. The patient was identified, procedure confirmed, site confirmed. Medical analogy and history were reviewed. Preoperative antibiotics were given. Standard DVT prophylaxis was in place. All other items were discussed and agreed upon. A midline incision was made from just below the inferior pole of the patella to just past the tibial tubercle. Hemostasis was achieved along the way using electrocautery. The soft tissues were elevated directly off the bolts subperiosteally in the lateral compartment in revealing the lateral side of the proximal tibia. Under fluoroscopic guidance, the drill hole was made in the metaphyseal region. This could lead us to the area of the centrally located depression fracture. Following this, using a tamp under fluoroscopic guidance, the surface was elevated to anatomical position. Once this was confirmed, Neda 7.5 mm in total was then prepared and packed into the wound. Fluoroscopy demonstrated that it to completely fill the cavity. Following this, 2 parallel screws, full threaded, at the guidewire checked, measured, drilled, and the appropriate length screw was chosen to support the surface. At this point, the fracture was excellently reduced. It was bone grafted and screws in appropriate position and therefore proceeded to closure. Wound was irrigated. The lateral compartment was loosely approximated using interrupted 0 Dexon. The skin was approximated using interrupted 2-0 Dexon. Skin was closed with V-Loc suture, Dermabond, and Steri-Strips. Sterile dressing was then applied. The knee was placed in a knee immobilizer. The tourniquet was let down. Total tourniquet time of 50 minutes. The anesthesia was then reversed and transferred supine to the room bed and then taken to recovery room in good condition. Intraoperatively, there was 10 mL blood loss. No complications. MD DEANNE Bundy/JEAN PAUL / [id number]
[2020-08-03] VITALS (10 sets, daily range): BP systolic 119–158; BP diastolic 56–74; PULSE 86–104; RESP 16–19; TEMP 36.4–37.3; O2SAT 97–98
[2020-08-03] MEDS: oxyCODONE HCl Immed Release 5 MG TABLET PO ×2 (00:21→06:12)
[2020-08-03] MEDS: 0.9 % Sodium Chloride Flush 3 ML SYRINGE 2 ML IVFLUSH ×3 (00:22→17:18)
[2020-08-03] MEDS: Morphine Sulfate 2 MG/ML CARTRIDGE IVPUSH ×5 (04:30→21:38)
[2020-08-03] MEDS: Omeprazole 20 MG CAPSULE.DR PO (06:12)
[2020-08-03 06:45] LABS: Hemoglobin 7.5 g/dl (12.0-16.0)
--- NOTE | 2020-08-03 07:46 | P.DS_ITS ---
DS: Providers Provider Date of admission: 07/31/20 12:38 Primary care physician: Fran Alegria MD Consults: 07/31/20 12:45 Consult to Hospitalist Routine Consulting Provider: Hospitalist Reason for consultation: medical issues DS: Diagnosis Discharge Diagnosis (1) Tibial plateau fracture, right: Status: Acute Problem details: Ms. Figueroa is an 79-year-old female who presented to the office with an injury she sustained to her right knee. She was found to have a tibial plateau fracture. The recommendation was to book her for operative fixation of the right knee which she was in agreement with. DS: Summary Hospital Course Hospital Course: Ms. Figueroa underwent a successful ORIF of the tibia. She was transferred to PACU and then to the floor she recovered during her stay she received physical therapy twice a day. She was started on aspirin for DVT prophylaxis. She will resume warfarin on discharge. Prior to discharge her vitals were stable afebrile. She is chronically anemic H&H on discharge is 7.5/25.0. Her dressing is clean dry intact. Brace intact. And the plan is to be transferred to a short-term rehab. Time Spent with Patient Time attestation: Total time spent providing and/or coordinating discharge services: Physical Exam Vital Signs and I&O and Narrative: Vital Signs and I&O: Vital Signs Temp 97.6 F 08/03/20 03:48 Pulse 94 08/03/20 03:48 Resp 16 08/03/20 03:48 BP 150/74 H 08/03/20 03:48 Pulse Ox 97 08/03/20 03:48 Intake & Output 08/02/20 08/03/20 08/03/20 18:59 06:59 18:59 Intake Total 720 / 1240 520 / 1240 Output Total 404 / 904 500 / 904 Balance 316 / 336 20 / 336 Urine Output (Aver age ml/kg/hr) 0.67 0.84 Intake: Intake, Oral [place] unt 720 / 1240 520 / 1240 Output: Output, Urine Am ount 404 / 904 500 / 904 Other: Breakfast % Eate n 100% Lunch % Eaten 75% Evening Snack % Eaten 100 Urine Bedside Commode Urine Color Yellow Body Mass Index 17.2 DS: Data Data Completed and Pending Labs on day of discharge: Labs from last 24 hours 08/03/20 06:20 Hgb 7.5 L Hct 25.0 L Discharge Plan Discharge Patient Disposition: Xfer SNF Referrals: [facility] [Outside] [facility] [Outside] Fran Alegria MD [Primary Care Provider] - Wendy Doherty PA-C [Physician Material Assembler] - (follow up with orthopedics in 2 weeks ) Discharge Medications: New acetaminophen 325 mg Tablet 650 mg PO Q6H 30 Days Qty: 240 RF: 0 amlodipine 5 mg Tablet 5 mg PO DAILY 30 Days Qty: 30 RF: 0 docusate sodium 100 mg Capsule 200 mg PO DAILY 30 Days Qty: 30 RF: 0 sennosides [Senna Lax] 8.6 mg Tablet 17.2 mg PO Q24H PRN (Reason: ) 30 Days Qty: 30 RF: 0 oxycodone 10 mg tablet 10 mg PO Q6H PRN (Reason: right knee ORIF) 7 Days Qty: 28 RF: 0 Continued nystatin 100,000 unit/mL suspension 5 ml PO QID RF: 0 prednisone 10 mg tablet 10 mg PO DAILY RF: 0 albuterol sulfate 2.5 mg /3 mL (0.083 %) solution for nebulization 1 vial inhalation QID RF: 0 whjazreiuj-berfmicjpavdg-kikw 50-325-40 mg tablet 1 tab PO BID PRN (Reason: headache) RF: 0 amlodipine 10 mg tablet 10 mg PO DAILY RF: 0 esomeprazole magnesium 40 mg capsule,delayed release(DR/EC) 40 mg PO DAILY RF: 0 montelukast 10 mg tablet 1 tab PO BEDTIME RF: 0 sodium chloride 7 % solution for nebulization 1 vial inhalation BID RF: 0 acetaminophen 325 mg Tablet 650 mg PO Q4H PRN (Reason: Pain (Scale Score 1-3)) RF: 0 atorvastatin 20 mg Tablet 20 mg PO BEDTIME RF: 0 albuterol sulfate [ProAir HFA] 90 mcg/actuation Hfa Aerosol Inhaler 2 puff INHALATION Q6H PRN (Reason: Shortness Of Breath) RF: 0 fluticasone propionate [Flonase Allergy Relief] 50 mcg/actuation [place],Suspension 2 spray INTRANASAL DAILY RF: 0 cholecalciferol (vitamin D3) 50 mcg (2,000 unit) Tablet 50 mcg PO DAILY RF: 0 xznexgbmsah-cvobrwgow-noefdlzr 100-62.5-25 mcg Blister With Device 1 inh INHALATION Q24H RF: 0 hydralazine 10 mg Tablet 10 mg PO BID RF: 0 tramadol 50 mg Tablet 50 mg PO BID PRN (Reason: Pain (Scale Score 4-6)) RF: 0 lorazepam 0.5 mg Tablet 0.5 mg PO BID RF: 0 pantoprazole 40 mg Tablet,Delayed Release (Dr/Ec) 40 mg PO DAILY RF: 0 warfarin 5 mg Tablet 5 mg PO DAILY RF: 0 terazosin 1 mg Tablet 1 mg PO BEDTIME RF: 0 polyethylene glycol 3350 [Miralax] 17 gram/dose Powder 17 g PO DAILY RF: 0 topiramate 50 mg Tablet 50 mg PO BID RF: 0 mirtazapine 7.5 mg Tablet 7.5 mg PO BEDTIME RF: 0 fluoxetine 40 mg Capsule 40 mg PO QAM RF: 0 meclizine 12.5 mg Tablet 12.5 mg PO TID PRN (Reason: Vertigo) RF: 0 ferrous sulfate 325 mg (65 mg iron) Tablet 325 mg PO BID RF: 0 cyclobenzaprine 10 mg Tablet 10 mg PO TID PRN (Reason: Muscle Spasm) RF: 0 oxycodone-acetaminophen [Percocet] 5-325 mg Tablet 1 tab PO BID RF: 0 Discharge Orders: Discharge Order (Routine); Ordered 08/03/20 Ordered By: Wendy Doherty Activity on Discharge: Use cane or walker Activity Restrictions/Additional Instructions: * NWB x6 weeks * NWB ROM as tolerated beginning 2 weeks post op * Knee immobilizer intact on at all times-may remove with NWB ROM exercises * Dressing changes prn-dry dressings ( no sutures to remove) * Continue anticoagulant * No tub bath or shower-Keep dressing clean, dry and intact * Follow up with orthopedics in 2 weeks Visit Report Forms: Patient Portal Discharge page Care Plan Goals: Restore functio of right knee Health Concerns: none Plan of Treatment: Physical Therapy Pain management DVT prophylaxis
[2020-08-03] MEDS: Albuterol Sulfate (0.083%) 2.5 MG/3 ML VIAL.NEB INHALE ×2 (08:09→15:49)
--- NOTE | 2020-08-03 08:59 | MHC.CM.PN ---
NURSE SANTOSH HANDLEY NOTE ELECTRONIC MEDCIAL RECORD REVIEWED ALONG WITH CASE DISCUSSED WITH STAFF NURSE , MET WITH PATIENT SHE IS AWARE THAT SHE WILL BE DISCHARGED TODAY PENDING INSURANCWE AUTHORIZARTION AND RESULTS F THE COVID TEST THAT WAS REORDERED . SHE WILL BE TRANSPORTED [facility]IA [facility].
[2020-08-03] MEDS: Atorvastatin Calcium 10 MG TABLET PO (09:01)
[2020-08-03] MEDS: FLUoxetine HCl 20 MG CAPSULE 40 MG PO (09:01)
[2020-08-03] MEDS: hydrALAZINE HCl 10 MG TABLET PO ×2 (09:01→21:37)
[2020-08-03] MEDS: Docusate Sodium 100 MG CAPSULE 200 MG PO (09:01)
[2020-08-03] MEDS: Acetaminophen 325 MG TABLET 650 MG PO ×3 (09:01→21:37)
[2020-08-03] MEDS: amLODIPine Besylate 5 MG TABLET PO (09:02)
[2020-08-03] MEDS: Aspirin 325 MG TABLET PO ×2 (09:02→21:37)
--- NOTE | 2020-08-03 10:50 | MHC.CM.PN ---
DISCHARGED TO [facility] FOR SHORT TERM REHA TODAY TRANSPORTATION BY [facility] POST D/C FROM STR REFERRAL INIATED WITH ARACELI COPEA FOR RN-PT-OT- MEDICARE IMM UPDATED
--- NOTE | 2020-08-03 11:42 | PC.NURSE ---
Addendum entered by Giuliana St RN 08/03/20 12:09: Patients COVID test was negative on 08-03-2020 Original Note: Patient admitted with Tibia Plateau Fracture, had an ORIF. Has been working with PT NWB for six weeks, ROM NWB starting 2 weeks after surgery.
[2020-08-03 12:04] LABS: SARS COV2 PCR INHOUSE NEGATIVE (Negative)
[2020-08-03] MEDS: oxyCODONE HCl Immed Release 5 MG TABLET 10 MG PO ×3 (12:16→22:37)
--- NOTE | 2020-08-03 15:09 | MHC.CM.PN ---
NURSE MEDICAL RECORDS COORDINATOR NOTE INFORMED BY ORTHOPEDIC SURGICAL PA THAT PATIENT WILL HAVE TWO UNITS OF PACKED RED BLOOD CELLS TONIGHT , (IT IS NOW 3PM AND THE BLOOD IHAS NOT COME UP YET AND WILL TAKE SOME TIME TO INFUSE OVER SEVERAL HOURS INFORMED LIASON AT [facility] OF THIS AND PLAN FOR DISCHARGE TOMORROW MORNING, CALLED TO PATIENTS DAUGHTER TO INFORM HER OF PATIENT NOT BEING DISCHARGED TODAY AND WILL GO TOMORROW
--- NOTE | 2020-08-03 15:19 | PM.IMPN ---
Subjective Subjective Date of Service: 08/03/20 Interval History: Patient was admitted for the right tibial plateau fracture, still has mild right leg pain. Review of Systems Denies any shortness of breath or abdominal pain or fever or chills or any weakness. Physical Exam Vital Signs and I&O and Narrative: Vital Signs and I&O: Vital Signs Temp 98.2 F 08/03/20 12:16 Pulse 103 H 08/03/20 12:16 Resp 17 08/03/20 12:16 BP 137/74 08/03/20 12:16 Pulse Ox 98 08/03/20 12:16 Intake & Output 08/02/20 08/03/20 08/03/20 18:59 06:59 18:59 Intake Total 720 / 1240 520 / 1240 720 / 720 Output Total 404 / 904 500 / 904 Balance 316 / 336 20 / 336 719 / 719 Urine Output (Aver age ml/kg/hr) 0.67 0.84 0.00 Intake: Intake, Oral [place] unt 720 / 1240 520 / 1240 720 / 720 Output: Output, Urine Am ount 404 / 904 500 / 904 Other: Meal Refused No NPO No Breakfast % Eate n 100% 75% Lunch % Eaten 75% 75% Evening Snack % Eaten 100 Urine Bedside Commode Urine Color Yellow Body Mass Index 17.2 physio: General: Not in acute distress, cooperative, comfortable. Neck is supple Cvs: rrr, [id number] , no murmur res: clear to auscultation ,no rhonchii or wheezing abd: no rebound or guarding ,nt, bs present. ext pulses present , no cyanosis neuro: axo3 , nonfocal. Objective Data Current Medications Generic Name Dose Route Start Last Admin Trade Name Freq PRN Reason Stop Dose Admin Acetaminophen 650 mg 07/31/20 11:58 Acetaminophen 325 Mg Tablet PO ONCE PRN Pain, Mild (Pain Scale 1-3) Acetaminophen 650 mg 07/31/20 14:00 08/03/20 12:16 Acetaminophen 325 Mg Tablet PO 650 mg Q6H TONIO Administration Acetaminophen/Butalbital/Caffeine 1 tab 07/31/20 23:34 08/01/20 00:14 Butalb/Acetamin/Caff 50/325/40 1 Tab Tablet PO 1 tab BID PRN Administration headache Albuterol Sulfate 2.5 mg 07/31/20 10:04 Albuterol Sulfate (0.083%) 2.5 Mg/3 Ml Vial.Neb INHALE ONCE PRN Shortness of Breath/Wheezing Albuterol Sulfate 2.5 mg 07/31/20 11:58 Albuterol Sulfate (0.083%) 2.5 Mg/3 Ml Vial.Neb INHALE ONCE PRN Wheezing Albuterol Sulfate 2.5 mg 08/01/20 13:00 08/03/20 12:06 Albuterol Sulfate (0.083%) 2.5 Mg/3 Ml Vial.Neb INHALE Not Given RQID TONIO Amlodipine Besylate 5 mg 08/01/20 09:00 08/03/20 09:02 Amlodipine Besylate 5 Mg Tablet PO 5 mg DAILY TONIO Administration Protocol Aspirin 325 mg 08/01/20 22:00 08/03/20 09:02 Aspirin 325 Mg Tablet PO 325 mg BID TONIO Administration Atorvastatin Calcium 10 mg 08/02/20 09:00 08/03/20 09:01 Atorvastatin Calcium 10 Mg Tablet PO 10 mg DAILY TONIO Administration Docusate Sodium 200 mg 08/02/20 13:15 08/03/20 09:01 Docusate Sodium 100 Mg Capsule PO 200 mg DAILY TONIO Administration Doxazosin Mesylate 1 mg 08/01/20 21:00 08/02/20 21:29 Doxazosin Mesylate 1 Mg Tablet PO 1 mg BEDTIME TONIO Administration Fluoxetine HCl 40 mg 08/02/20 09:00 08/03/20 09:01 Fluoxetine Hcl 20 Mg Capsule PO 40 mg DAILY TONIO Administration Hydralazine HCl 10 mg 08/01/20 21:00 08/03/20 09:01 Hydralazine Hcl 10 Mg Tablet PO 10 mg BID TONIO Administration Protocol Montelukast Sodium 10 mg 08/01/20 21:00 08/02/20 21:29 Montelukast Sodium 10 Mg Tablet PO 10 mg BEDTIME TONIO Administration Morphine Sulfate 2 mg 07/31/20 12:40 08/03/20 13:48 Morphine Sulfate 2 Mg/Ml Cartridge IVPUSH 2 mg Q2H PRN Administration Pain, Severe (Pain Scale 7-10) Omeprazole 20 mg 08/02/20 06:45 08/03/20 06:12 Omeprazole 20 Mg Capsule. PO 20 mg DAILY@0600 TONIO Administration Ondansetron HCl 4 mg 07/31/20 11:58 Ondansetron Hcl 4 Mg/2 Ml Vial IVPUSH ONCE PRN Nausea and Vomiting Ondansetron HCl 4 mg 07/31/20 12:40 Ondansetron Hcl 4 Mg/2 Ml Vial IVPUSH Q8H PRN Nausea and Vomiting Oxycodone HCl 5 mg 07/31/20 11:58 Oxycodone Hcl Immed Release 5 Mg Tablet PO ONCE PRN Pain, Mild (Pain Scale 1-3) Oxycodone HCl 10 mg 08/03/20 11:04 08/03/20 12:16 Oxycodone Hcl Immed Release 5 Mg Tablet PO 10 mg Q6H TONIO Administration Senna 17.2 mg 08/02/20 13:06 Sennosides 8.6 Mg Tablet PO Q24H PRN Sodium Chloride 2 ml 07/31/20 16:00 08/03/20 09:02 0.9 % Sodium Chloride Flush 3 Ml Syringe IVFLUSH 2 ml QSHIFT TONIO Administration Labs CBC & Chem 7: 08/03/20 06:20 07/31/20 10:32 Labs: Laboratory Results - last 24 hr 08/03/20 09:58 Coronavirus (PCR) NEGATIVE Progress Note: A&P (1) Chronic anemia: Status: Acute (2) COPD (chronic obstructive pulmonary disease): Status: Acute (3) Hypertension: Status: Acute Assessment and Plan: 1.Right knee arthroplasty. due to right knee lateral tibial plateau fracture postoperative day 3 Management as per surgical team. encourage incentive spirometry out of bed anticoagulation per surgery, Will add stool softeners due to constipation and increased dose of oxycodone to 7.5 mg due to persistent pain. 2. acute on chronic anemia patient is aware that she is chronically anemic but not aware of her diagnosis prior iron studies B12 folate are within normal range since patient is asymptomatic h/h slowly treding down consider trabsfusion as per primary team. 3.Hypertension. stable -blood pressure is stable continue Norvasc 5 mg, continue hydralazine 10 mg b.i.d.. 4.COPD. No exacerbation. Continue albuterol as needed. 5.Hyperlipidemia. Continue statin. 6.DVT prophylaxis with full-dose aspirin disposition to rehab facility as per Ortho recommendation
--- NOTE | 2020-08-03 17:05 | PC.NURSE ---
WENT IN ROOM TO HELP PATIENT ON COMMODE, LAB WAS IN THERE, THEY HAD TO REDRAW THE TYPE AND SCREEN DUE TO BEING REJECTED BY LAB FOR WRIST BAND NOT SCANNING CORRECTLY. ARE GOING TO RUN TYPE AND SCREEN STAT.
[2020-08-03] MEDS: polyethylene glycoL 3350 17 GM POWD.PACK PO (17:18)
[2020-08-03] MEDS: Montelukast Sodium 10 MG TABLET PO (21:37)
[2020-08-03] MEDS: Doxazosin Mesylate 1 MG TABLET PO (21:38)
[2020-08-04] VITALS (10 sets, daily range): BP systolic 144–176; BP diastolic 76–88; PULSE 75–84; RESP 16–20; TEMP 36.4–36.7; O2SAT 97–99
[2020-08-04] MEDS: Morphine Sulfate 2 MG/ML CARTRIDGE IVPUSH ×3 (00:26→09:24)
[2020-08-04] MEDS: 0.9 % Sodium Chloride Flush 3 ML SYRINGE 2 ML IVFLUSH ×2 (00:32→09:28)
[2020-08-04] MEDS: Acetaminophen 325 MG TABLET 650 MG PO ×2 (03:36→09:26)
[2020-08-04] MEDS: oxyCODONE HCl Immed Release 5 MG TABLET 10 MG PO ×2 (05:37→11:05)
[2020-08-04] MEDS: Omeprazole 20 MG CAPSULE.DR PO (05:38)
[2020-08-04] MEDS: Albuterol Sulfate (0.083%) 2.5 MG/3 ML VIAL.NEB INHALE (08:35)
--- NOTE | 2020-08-04 08:49 | MHC.CM.PN ---
nurse day care worker note electronic medical record reviewed along with case discussed with orhopedic surgical pa patient has comp,eted her 2 units of blood transfusion and after morning labs are reviewed she willm bne discharged , informed [facility] [place] and transport time is 1pm by [facility] notified her daughter adinaece [phone]
[2020-08-04 08:58] LABS: Hemoglobin 10.3 g/dl (12.0-16.0)
[2020-08-04] MEDS: polyethylene glycoL 3350 17 GM POWD.PACK PO (09:25)
[2020-08-04] MEDS: Aspirin 325 MG TABLET PO (09:26)
[2020-08-04] MEDS: hydrALAZINE HCl 10 MG TABLET PO (09:27)
[2020-08-04] MEDS: Docusate Sodium 100 MG CAPSULE 200 MG PO (09:28)
[2020-08-04] MEDS: FLUoxetine HCl 20 MG CAPSULE 40 MG PO (09:29)
[2020-08-04] MEDS: Atorvastatin Calcium 10 MG TABLET PO (09:29)
[2020-08-04] MEDS: amLODIPine Besylate 5 MG TABLET PO (09:29)
--- NOTE | 2020-08-04 19:08 | P.PNIM_ITS ---
Subjective Subjective Date of Service: 08/04/20 Interval History: patient was seen in the morning rounds she denies any chest pain or shortness of breath or any abdominal pain Review of Systems denies any abdominal pain or fever or chills or any chest pain. Physical Exam Vital Signs and I&O and Narrative: Vital Signs and I&O: Vital Signs Temp 97.5 F 08/04/20 07:26 Pulse 78 08/04/20 10:00 Resp 18 08/04/20 07:26 BP 164/86 H 08/04/20 10:00 Pulse Ox 97 08/04/20 07:26 Intake & Output 08/04/20 08/04/20 08/05/20 06:59 18:59 06:59 Intake Total 850 / 1930 Output Total Balance 849 / 1478 Urine Output (Aver age ml/kg/hr) 0.00 Intake: Intake, Oral [place] unt 150 / 1230 Intake (Blood Pr oduct) Amount 700 / 700 Red Blood Cell s (E0382) Unit 350 / 350 [id number] Red Blood Cell s (E0382) Unit 350 / 350 [id number] Output: Output, Urine Am ount Other: Meal Refused No NPO No Body Mass Index 17.2 physio: Cvs: rrr, [id number] , no murmur res: clear to auscultation ,no rhonchii or wheezing abd: no rebound or guarding ,nt, bs present. ext pulses present , no cyanosis neuro: axo3 , nonfocal. Objective Data Labs CBC & Chem 7: 08/04/20 08:24 Labs: Laboratory Results - last 24 hr 08/03/20 17:07 Blood Type O Positive Antibody Screen POSITIVE Antibody Identification Anti-E Crossmatch See Detail Blood Bank Comment Technical Progress Note: A&P (1) Chronic anemia: Status: Acute (2) COPD (chronic obstructive pulmonary disease): Status: Acute (3) Hypertension: Status: Acute Assessment and Plan: 1.Right knee arthroplasty. due to right knee lateral tibial plateau fracture pos toperative day 4 Management as per surgical team. encourage incentive spirometry out of bed anticoagulation per surgery, Continue to sstool softener incentive spirometry 2. acute on chronic anemia patient is aware that she is chronically anemic but not aware of her diagnosis prior iron studies B12 folate are within normal range since patient is asymptomatic h/h slowly treding down patient was given transfusion yesterday for primary team hemoglobin improved to 10. 3.Hypertension. stable -blood pressure is stable continue Norvasc 5 mg, continue hydralazine 10 mg b.i.d.. 4.COPD. No exacerbation. Continue albuterol as needed. 5.Hyperlipidemia. Continue statin. 6.DVT prophylaxis with full-dose aspirin disposition to rehab facility as per Ortho recommendation will sign off now please call us for any questions.
== END 2020-08-04 11:45 | disposition skilled nursing facility (03) | DRG 494 ==
LOC: HO.S3 13:50
PROVIDERS: Internal Medicine; Nurse Practitioner; Physician Assistant; Admitting Provider Orthopaedic Surgery; PCP Internal Medicine; Visit Provider Orthopaedic Surgery
PROC: 0QSG04Z Reposition Right Tibia with Internal Fixation Device, Open Approach (ICD-10-PCS; principal; 2020-07-31 11:30)
DX: S82.141A Displaced bicondylar fracture of right tibia, initial encounter for closed fracture (principal); W10.9XXA Fall (on) (from) unspecified stairs and steps, initial encounter; Y93.9 Activity, unspecified; Y92.9 Unspecified place or not applicable; Y99.9 Unspecified external cause status; J44.9 Chronic obstructive pulmonary disease, unspecified; I10 Essential (primary) hypertension; K21.9 Gastro-esophageal reflux disease without esophagitis; D64.9 Anemia, unspecified; E78.5 Hyperlipidemia, unspecified; Z20.828 Contact with and (suspected) exposure to other viral communicable diseases; Z87.891 Personal history of nicotine dependence; Z88.2 Allergy status to sulfonamides; Z88.5 Allergy status to narcotic agent; Z88.6 Allergy status to analgesic agent; Z79.51 Long term (current) use of inhaled steroids; Z79.891 Long term (current) use of opiate analgesic; Z79.01 Long term (current) use of anticoagulants; Z79.899 Other long term (current) drug therapy
CPT/HCPCS: 36415; 80048; 84132; 85014; 85018; 85027; 86850; 86870; 86900; 86901; 86920; 86922; 87635; 94640; 97110; 97116; 97162; 97166; 97535; C1713; J0131; J0690; J1100; J2250; J2270; J3010; P9016

== ENCOUNTER 2020-08-16 13:36 | Outpatient (REF) | payer MEDICARE, SELFPAY ==
--- NOTE | 2020-08-16 13:44 | XR_ITS ---
EXAMINATION: XR knee RT 2V CLINICAL INFORMATION: Reason for Exam [id number] - Displaced bicondylar fracture of right tibia, initial encounter for closed fracture COMPARISON: None available at the time of this dictation. TECHNIQUE: Frontal and lateral FINDINGS: BONES: There are 2 screws in the proximal tibia. No fracture or dislocation is present. JOINTS: Narrowing of joint spaces and developed osteophytes from the edges of articular surfaces suggest degenerative osteoarthritis. There is knee joint effusion. 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 There is knee joint effusion. There are 2 screws through the proximal tibia in place.
== END 2020-08-16 13:37 | disposition home or self-care (01) ==
LOC: HO.XRAY 13:36
PROVIDERS: PCP Family Medicine Geriatric Medicine; Visit Provider Physician Assistant
DX: S82.141A Displaced bicondylar fracture of right tibia, initial encounter for closed fracture (principal); X58.XXXA Exposure to other specified factors, initial encounter; Y93.9 Activity, unspecified; Y92.9 Unspecified place or not applicable; Y99.8 Other external cause status; Z88.2 Allergy status to sulfonamides; Z88.8 Allergy status to other drugs, medicaments and biological substances
CPT/HCPCS: 73560; 99212

== ENCOUNTER 2020-09-04 11:40 | Emergency (ER) | payer MEDICARE, SELFPAY ==
[2020-09-04 11:55] VITALS: BP 118/71; PULSE 78; RESP 18; TEMP 37.2; BMI 18.1
--- NOTE | 2020-09-04 12:11 | US_ITS ---
EXAMINATION: US VENOUS ULTRASOUND WITH DOPPLER LOWER EXTREMITY, RIGHT CLINICAL INFORMATION: Pain right lower extremity. Assess for occult DVT. COMPARISON: Right lower extremity venous ultrasound with Doppler 04/09/2019 TECHNIQUE: Ultrasound of the deep veins is performed from the hip to the calf with compression sonography and color and pulse Doppler assessment. Spectral analysis with color-flow imaging is performed. FINDINGS: There is normal venous compression and respiratory variation and augmented flow. The visualized common femoral vein, superficial femoral vein, profunda femoral vein, popliteal vein, and the trifurcation region shows no evidence of deep venous thrombosis. There is no popliteal fossa cyst. Fluid is present anterior knee soft tissues, either small suprapatellar effusion or prepatellar bursitis. US/US venous duplex LE RT IMPRESSION: 1. No DVT demonstrated in the right lower extremity. 2. Fluid anterior soft tissues, either small suprapatellar effusion or prepatellar bursitis.
--- NOTE | 2020-09-04 12:12 | XR_ITS ---
EXAMINATION: XR CHEST CLINICAL INFORMATION: Chest pain COMPARISON: Previous chest x-ray February 2020 TECHNIQUE: Frontal view of the chest was obtained. FINDINGS: The cardiac and mediastinal contours are stable. The lungs are clear. There is no pleural effusion or pneumothorax. There are degenerative changes of the spine and mild scoliosis. XR/XR chest 1V IMPRESSION: No evidence for acute disease in the chest.
[2020-09-04] MEDS: 0.9 % Sodium Chloride 500 ML 1000 ML IV (12:34)
[2020-09-04 12:40] LABS: MANUAL DIFF FLAG NO
--- NOTE | 2020-09-04 12:41 | ED_ITS ---
HPI - URI/Sore Throat General Chief Complaint: Upper Respiratory Symptoms Stated Complaint: COUGH(-COVID YESTERDAY) Time Seen by Provider: 09/04/20 12:11 Source: EMS Mode of arrival: EMS Limitations: no limitations History of Present Illness HPI Narrative: He knew year old female with flow noted past medical history including history anemia, asthma, COPD, HLD, chronic back pain my gastro please hypertension and osteoarthritis history of cholecystectomy, bowel resection, hysterectomy, rectopexy who recently suffered result injury to right knee she is status post Right knee arthroplasty on July 31, 2020 when to [facility] for 3 weeks where she got discharged from yesterday with a knee brace she presents today with complaint of pain in the right knee/lower extremity as well as having a cough with congestion since yesterday. [facility] called for her due to the pain as well as a URI symptoms. MD elicited complaint: cough Severity: moderate Able to tolerate fluids by mouth: Yes Exacerbating factors: nothing Relieving factors: nothing Treatments prior to arrival: none Related Data Home Medications Medication Instructions Recorded Confirmed albuterol sulfate 1 vial INHALATION QID 07/28/20 07/28/20 amlodipine 10 mg PO DAILY 07/28/20 08/01/20 dqfeqvrmyy-mujnopwjhlync-ejhc 1 tab PO BID PRN 07/28/20 07/28/20 esomeprazole magnesium 40 mg PO DAILY 07/28/20 08/01/20 montelukast 1 tab PO BEDTIME 07/28/20 07/28/20 nystatin 5 ml PO QID 07/28/20 07/28/20 prednisone 10 mg PO DAILY 07/28/20 07/28/20 sodium chloride 1 vial INHALATION BID 07/28/20 07/28/20 acetaminophen 650 mg PO Q4H PRN 08/01/20 08/01/20 albuterol sulfate [ProAir HFA] 2 puff INHALATION Q6H PRN 08/01/20 08/01/20 atorvastatin 20 mg PO BEDTIME 08/01/20 08/01/20 cholecalciferol (vitamin D3) 50 mcg PO DAILY 08/01/20 08/01/20 cyclobenzaprine 10 mg PO TID PRN 08/01/20 08/01/20 ferrous sulfate 325 mg PO BID 08/01/20 08/01/20 fluoxetine 40 mg PO QAM 08/01/20 08/01/20 fluticasone propionate [Flonase 2 spray INTRANASAL DAILY 08/01/20 08/01/20 Allergy Relief] zkivcpjwiav-vmburdcuh-ungdhwkf 1 inh INHALATION Q24H 08/01/20 08/01/20 hydralazine 10 mg PO BID 08/01/20 08/01/20 lorazepam 0.5 mg PO BID 08/01/20 08/01/20 meclizine 12.5 mg PO TID PRN 08/01/20 08/01/20 mirtazapine 7.5 mg PO BEDTIME 08/01/20 08/01/20 oxycodone-acetaminophen [Percocet] 1 tab PO BID 08/01/20 08/01/20 pantoprazole 40 mg PO DAILY 08/01/20 08/01/20 polyethylene glycol 3350 [Miralax] 17 g PO DAILY 08/01/20 08/01/20 terazosin 1 mg PO BEDTIME 08/01/20 08/01/20 topiramate 50 mg PO BID 08/01/20 08/01/20 tramadol 50 mg PO BID PRN 08/01/20 08/01/20 warfarin 5 mg PO DAILY 08/01/20 08/01/20 Previous Rx's Medication Instructions Recorded acetaminophen 650 mg PO Q6H 30 Days #240 tab 08/03/20 amlodipine 5 mg PO DAILY 30 Days #30 tab 08/03/20 docusate sodium 200 mg PO DAILY 30 Days #30 cap 08/03/20 oxycodone 10 mg PO Q6H PRN 7 Days #28 tab 08/03/20 sennosides [Senna Lax] 17.2 mg PO Q24H PRN 30 Days #30 tab 08/03/20 benzonatate [Tessalon Perles] 100 mg PO BID PRN #14 cap 09/04/20 doxycycline monohydrate 100 mg PO BID 7 Days #14 cap 09/04/20 Allergies Allergy/AdvReac Type Severity Reaction Status Date / Time codeine [Codeine] Allergy Mild RASH Verified 08/16/20 14:16 Sulfa (Sulfonamide Allergy Mild HIVES Verified 08/16/20 14:16 Antibiotics) [Sulfa (Sulfonamides)] ibuprofen [From Motrin] AdvReac Mild STOMACH Verified 08/16/20 14:16 UPSET Motrin Allergy Unknown RECTAL Uncoded 07/31/20 16:43 BLEEDING, UPSET STOMACH Review of Systems Review of Systems: Constitutional: No Weight loss, No Fever, No Chills, No Night Sweats, No Fatigue, No Malaise ENT/Mouth: No Hearing loss, No Ear Pain, + Nasal Congestion, No Sinus Pain, No Hoarseness, No sore throat, + Rhinorrhea, No Swallowing Difficulty Eyes: No Eye Pain, No Swelling, No Redness, No Foreign Body, No Discharge, No Vision Changes Cardiovascular: No SOB, No Dyspnea on Exertion, No Orthopnea, No Edema, No Palpitations Respiratory: +Cough that causes her to have pains in chest, No Sputum, No Wheezing, No Smoke Exposure, No Dyspnea Gastrointestinal: No Nausea, No Vomiting, No Diarrhea, No Constipation, No abdominal Pain, No Hematochezia, No Melena Genitourinary: no irregular bleeding, No Dysuria, No Urinary Frequency, No Hematuria, No Urinary Incontinence, No Urgency, No Flank Pain, No Urinary Flow Changes, No Hesitancy Musculoskeletal: No joint pain, No Myalgias, No Joint Swelling Skin: No Skin Lesions, No rash Neuro: No Weakness, No Numbness, No Paresthesias, No Loss of Consciousness, No Dizziness, No Headache Psych: No Anxiety/Panic, No Depression, No SI/HI/AH/VH, No Social Issues Heme/Lymph: No Bruising, No Bleeding,No Lymphadenopathy Endocrine: No Polyuria, No Polydipsia, No Temperature Intolerance Yes all other systems are reviewed and are negative [facility] Past Medical History Attestation statement: The following information was validated with the patient. Medical History Anemia Asthma Back pain Chronic anemia COPD (chronic obstructive pulmonary disease) GERD (gastroesophageal reflux disease) Hyperlipidemia Hypertension Osteoarthritis Surgical History H/O of rectopexy H/O: hysterectomy History of bowel resection History of cholecystectomy Social History Social History Household Members: Family and Other Housing: Apartment Smoking Status: Former smoker Smoked in Last 30 Days: No Second Hand Smoke Exposure: No Use of substances other than those prescribed or required for medical reasons: No Substance Use Type: Marijuana Advance Directives: No Advance Directives Information Provided: Yes service: No Current occupational status: retired Physical Exam Vital Signs: Vital Signs: Last Vital Signs Temp 98.9 F 09/04/20 11:55 Pulse 71 09/04/20 16:41 Resp 20 09/04/20 16:41 BP 146/74 H 09/04/20 16:41 Pulse Ox 97 09/04/20 16:41 Body Mass Index 18.1 Reviewed Const: General: cooperative and healthy appearing; No acute distress or intoxicated appearing Nutritional Appearance: average body habitus Orientation/consciousness: patient oriented x3 HENMT: Head: Yes normal to inspection Ears: hearing grossly normal bilaterally Eyes: General: appearance normal, both eyes and all related structures Visual Whatley: normal visual whatley by confrontation Neck: Neck: Yes normal visual inspection and No tender Thyroid: Thyroid normal Chest: Chest palpation & inspection: normal inspection of the chest Resp: Other: Slight dry bronchial cough Effort & Inspection: normal respiratory effort Auscultation: clear to auscultation bilaterally Cardio: Jugular venous distension: no JVD Rhythm: regular rhythm GI: Inspection: Yes normal to inspection Percussion: Yes normal to percussion Auscultation: normal bowel sounds : General: Yes no CVA tenderness Back/Spine/Pelvis: Back: no CVA tenderness Skin: General skin exam: no rashes or lesions noted Neuro: General: patient oriented x3 Extrem: General: Yes normal to inspection Upper/lower leg/hip images: 1. Right knee without swelling or redness. States pain from the knee posterior down to the calf area. She does have a brace in place. Psych: Appearance: grossly normal Course Course Course Narrative: Patient got out of bed and walk to the bathroom with walker with minimal to no assistance. Labs work overall stable. COVID negative. Chest x-ray negative. She does not feel that she has to go back to rehab. States she will be fine with pain medicine for her knee. She lives with her daughter and sister at home. MDM - URI/Sore Throat MDM Narrative Medical decision making narrative: Interview 79-year-old female with above history recent ORIF of right lateral tibial plateau fracture status post 3 week rehab stay discharged yesterday with VNA services having pain in the knee without new injury pain mostly in the posterior going down to the calf will need ultrasound of the right lower extremity given the recent surgery and immobility with brace. No new injury. Knee does not appear to be infected. In addition she also has some rhinorrhea and cough with associated chest wall pain. Will need labs including chest x-ray EKG and COVID-19 test. Her main concern is the pain in the knee and is requesting pain medicine for this. She does live at home with her sister and her daughter and does not feel that she needs to go back to rehab. Her daughter's name is Lynda Beach phone #[phone]. Differential Diagnosis Differential diagnosis: Likely upper respiratory infection, viral infection, bronchitis and pharyngitis; Unlikely croup, otitis media, sinusitis and influenza Medical Records Attestation: I reviewed the patient's medical records. Lab Data Attestation: I reviewed the patient's lab results. Result diagrams: 09/04/20 12:33 09/04/20 14:16 Labs: Lab Results 09/04/20 09/04/20 09/04/20 Range/Units 12:32 12:32 12:32 WBC (4.8-10.8) X10*3/uL RBC (4.20-5.50) X10*6/uL Hgb (12.0-16.0) g/dl Hct (37-47) % MCV (80-98) fL MCH (27.0-33.0) pg MCHC (31.0-35.0) g/dl RDW (11.0-16.0) % Plt Count (160-400) X10*3/uL MPV (9.4-12.3) fL Immature Gran % (Auto) (0.0-0.4) % Neut % (Auto) (45-73) % Lymph % (Auto) (20-40) % [place] % (Auto) (2-11) % Eos % (Auto) (0-4) % Baso % (Auto) (0-2) % Lymph # (Auto) (1.2-4.9) X10*3/uL [place] # (Auto) (0.1-1.2) X10*3/uL Eos # (Auto) (0.0-0.4) X10*3/uL Baso # (Auto) (0.0-0.2) X10*3/uL Abs Immat Gran (auto) (0.00-0.03) X10*3/uL Absolute Neuts (auto) (2.0-8.3) X10*3/uL Absolute Nucleated RBC (0.0-0.012) X10*3/uL Nucleated RBC % (auto) (0.0-0.2) /100WBC PT (10.8-13.0) SEC INR (0.9-1.1) APTT (24.1-38.0) SEC Sodium 138 (135-145) mmol/L Potassium 6.0 H* (3.3-5.1) mmol/l Chloride 110 H (96-108) mmol/L Carbon Dioxide 19 L (22-29) mmol/L Anion Gap 15 (12-20) BUN 44 H (9-16) mg/dL Creatinine 2.54 H (0.5-1.4) mg/dL Estim Creat Clear Calc 14.6 Estimated GFR 18 Random Glucose 72 (60-115) mg/dL Calcium 8.4 (8.4-10.2) mg/dL Total Bilirubin 0.2 (0.0-1.0) mg/dL AST 25 (5-31) U/L ALT 26 (0-31) U/L Alkaline Phosphatase 133 H (39-117) U/L Troponin I High Sens < 3.5 (<3.5-17.0) ng/L Total Protein 6.3 L (6.5-8.0) g/dL Albumin 3.5 (3.5-5.0) g/dL Coronavirus (PCR) NEGATIVE (Negative) 09/04/20 09/04/20 09/04/20 Range/Units 12:33 12:33 14:16 WBC 5.3 (4.8-10.8) X10*3/uL RBC 3.24 L (4.20-5.50) X10*6/uL Hgb 9.4 L (12.0-16.0) g/dl Hct 30.2 L (37-47) % MCV 93.2 (80-98) fL MCH 29.0 (27.0-33.0) pg MCHC 31.1 (31.0-35.0) g/dl RDW 13.2 (11.0-16.0) % Plt Count 170 D (160-400) X10*3/uL MPV 10.4 (9.4-12.3) fL Immature Gran % (Auto) 0.2 (0.0-0.4) % Neut % (Auto) 47.4 (45-73) % Lymph % (Auto) 35.0 (20-40) % [place] % (Auto) 12.2 H (2-11) % Eos % (Auto) 4.8 H (0-4) % Baso % (Auto) 0.4 (0-2) % Lymph # (Auto) 1.8 (1.2-4.9) X10*3/uL [place] # (Auto) 0.6 (0.1-1.2) X10*3/uL Eos # (Auto) 0.3 (0.0-0.4) X10*3/uL Baso # (Auto) 0.0 (0.0-0.2) X10*3/uL Abs Immat Gran (auto) 0.01 (0.00-0.03) X10*3/uL Absolute Neuts (auto) 2.5 (2.0-8.3) X10*3/uL Absolute Nucleated RBC 0.000 (0.0-0.012) X10*3/uL Nucleated RBC % (auto) 0.0 (0.0-0.2) /100WBC PT 10.9 (10.8-13.0) SEC INR 0.9 (0.9-1.1) APTT 38.7 H (24.1-38.0) SEC Sodium 137 (135-145) mmol/L Potassium 4.6 D (3.3-5.1) mmol/l Chloride 111 H (96-108) mmol/L Carbon Dioxide 18 L (22-29) mmol/L Anion Gap 13 (12-20) BUN 40 H (9-16) mg/dL Creatinine 2.31 H (0.5-1.4) mg/dL Estim Creat Clear Calc 16.1 Estimated GFR 20 Random Glucose 74 (60-115) mg/dL Calcium 7.8 L D (8.4-10.2) mg/dL Total Bilirubin (0.0-1.0) mg/dL AST (5-31) U/L ALT (0-31) U/L Alkaline Phosphatase (39-117) U/L Troponin I High Sens (<3.5-17.0) ng/L Total Protein (6.5-8.0) g/dL Albumin (3.5-5.0) g/dL Coronavirus (PCR) (Negative) Imaging Data Venous US: Radiologist's impression: [address] [address] Ultrasound Report Signed Patient: Joe Figueroa#: [id number] : 1940Acct:[id number] Age/Sex: 79 / FADM Date: 09/04/20 Loc: .ED Attending Dr: Ordering Physician: Eduardo Rankin NP Date of Service: 09/04/20 Procedure(s): US venous duplex LE RT Accession Number(s): [id number] cc: Eduardo Rankin NP~ EXAMINATION: US VENOUS ULTRASOUND WITH DOPPLER LOWER EXTREMITY, RIGHT CLINICAL INFORMATION: Pain right lower extremity. Assess for occult DVT. COMPARISON: Right lower extremity venous ultrasound with Doppler 04/09/2019 TECHNIQUE: Ultrasound of the deep veins is performed from the hip to the calf with compression sonography and color and pulse Doppler assessment. Spectral analysis with color-flow imaging is performed. FINDINGS: There is normal venous compression and respiratory variation and augmented flow. The visualized common femoral vein, superficial femoral vein, profunda femoral vein, popliteal vein, and the trifurcation region shows no evidence of deep venous thrombosis. There is no popliteal fossa cyst. Fluid is present anterior knee soft tissues, either small suprapatellar effusion or prepatellar bursitis. US/US venous duplex LE RT IMPRESSION: 1. No DVT demonstrated in the right lower extremity. 2. Fluid anterior soft tissues, either small suprapatellar effusion or prepatellar bursitis. Dictated By:MADDISON RITCHIE MD Signed By:<Electronically signed by MADDISON RITCHIE MD in OV>09/04/20 1441 DD/ 1211 TD/TT: Utility Technician: MARCELA Chest x-ray: Radiologist's impression: [address] [address] XRay Report Signed Patient: Joe Figueroa#: [id number] : 1940Acct:[id number] Age/Sex: 79 / FADM Date: 09/04/20 Loc: HO.ED Attending Dr: Ordering Physician: Eduardo Rankin NP Date of Service: 09/04/20 Procedure(s): XR chest 1V Accession Number(s): [id number] cc: Eduardo Rankin MACHINE TURNER~ EXAMINATION: XR CHEST CLINICAL INFORMATION: Chest pain COMPARISON: Previous chest x-ray February 2020 TECHNIQUE: Frontal view of the chest was obtained. FINDINGS: The cardiac and mediastinal contours are stable. The lungs are clear. There is no pleural effusion or pneumothorax. There are degenerative changes of the spine and mild scoliosis. XR/XR chest 1V IMPRESSION: No evidence for acute disease in the chest. Dictated By:FLORENCIA DE LA GARZA MD Signed By:<Electronically signed by FLORENCIA DE LA GARZA MD in OV>09/04/20 1256 DD/ 1212 TD/TT: Utility Technician: HOWIE Discharge Plan Discharge Clinical Impression: Acute knee pain, Bronchitis Patient Disposition: Home, Self-Care Instructions: Acute Bronchitis (ED), Knee Pain (ED) Prescriptions: New doxycycline monohydrate 100 mg capsule 100 mg PO BID 7 Days Qty: 14 RF: 0 benzonatate [Tessalon Perles] 100 mg capsule 100 mg PO BID PRN (Reason: cough) Qty: 14 RF: 0 No Action nystatin 100,000 unit/mL suspension 5 ml PO QID RF: 0 prednisone 10 mg tablet 10 mg PO DAILY RF: 0 albuterol sulfate 2.5 mg /3 mL (0.083 %) solution for nebulization 1 vial inhalation QID RF: 0 atkustiveo-kkgrjxgjbjetn-fnaj 50-325-40 mg tablet 1 tab PO BID PRN (Reason: headache) RF: 0 amlodipine 10 mg tablet 10 mg PO DAILY RF: 0 esomeprazole magnesium 40 mg capsule,delayed release(DR/EC) 40 mg PO DAILY RF: 0 montelukast 10 mg tablet 1 tab PO BEDTIME RF: 0 sodium chloride 7 % solution for nebulization 1 vial inhalation BID RF: 0 acetaminophen 325 mg Tablet 650 mg PO Q4H PRN (Reason: Pain (Scale Score 1-3)) RF: 0 atorvastatin 20 mg Tablet 20 mg PO BEDTIME RF: 0 albuterol sulfate [ProAir HFA] 90 mcg/actuation Hfa Aerosol Inhaler 2 puff INHALATION Q6H PRN (Reason: Shortness Of Breath) RF: 0 fluticasone propionate [Flonase Allergy Relief] 50 mcg/actuation [place],Suspension 2 spray INTRANASAL DAILY RF: 0 cholecalciferol (vitamin D3) 50 mcg (2,000 unit) Tablet 50 mcg PO DAILY RF: 0 epqdipvypeb-eqsnmfkoq-mwuarxnt 100-62.5-25 mcg Blister With Device 1 inh INHALATION Q24H RF: 0 hydralazine 10 mg Tablet 10 mg PO BID RF: 0 tramadol 50 mg Tablet 50 mg PO BID PRN (Reason: Pain (Scale Score 4-6)) RF: 0 lorazepam 0.5 mg Tablet 0.5 mg PO BID RF: 0 pantoprazole 40 mg Tablet,Delayed Release (Dr/Ec) 40 mg PO DAILY RF: 0 warfarin 5 mg Tablet 5 mg PO DAILY RF: 0 terazosin 1 mg Tablet 1 mg PO BEDTIME RF: 0 polyethylene glycol 3350 [Miralax] 17 gram/dose Powder 17 g PO DAILY RF: 0 topiramate 50 mg Tablet 50 mg PO BID RF: 0 mirtazapine 7.5 mg Tablet 7.5 mg PO BEDTIME RF: 0 fluoxetine 40 mg Capsule 40 mg PO QAM RF: 0 meclizine 12.5 mg Tablet 12.5 mg PO TID PRN (Reason: Vertigo) RF: 0 ferrous sulfate 325 mg (65 mg iron) Tablet 325 mg PO BID RF: 0 cyclobenzaprine 10 mg Tablet 10 mg PO TID PRN (Reason: Muscle Spasm) RF: 0 oxycodone-acetaminophen [Percocet] 5-325 mg Tablet 1 tab PO BID RF: 0 acetaminophen 325 mg Tablet 650 mg PO Q6H 30 Days Qty: 240 RF: 0 amlodipine 5 mg Tablet 5 mg PO DAILY 30 Days Qty: 30 RF: 0 docusate sodium 100 mg Capsule 200 mg PO DAILY 30 Days Qty: 30 RF: 0 sennosides [Senna Lax] 8.6 mg Tablet 17.2 mg PO Q24H PRN (Reason: ) 30 Days Qty: 30 RF: 0 oxycodone 10 mg tablet 10 mg PO Q6H PRN (Reason: right knee ORIF) 7 Days Qty: 28 RF: 0 Referrals: ED Physician,Generic [Physician] - 5 days Interventions: ED Discharge Assessment Last Done: 09/04/20 17:17 Discharge Date/Time: 09/04/20 17:19
[2020-09-04 12:46] LABS: Basophils Percent Auto 0.4 % (0-2); Eosinophils Absolute Auto 0.3 X10*3/uL (0.0-0.4); Eosinophils Percent Auto 4.8 % (0-4); Hematocrit 30.2 % (37-47); Hemoglobin 9.4 g/dl (12.0-16.0); Imm Gran Abs Auto 0.01 X10*3/uL (0.00-0.03); Imm Gran Pct Auto 0.2 % (0.0-0.4); Lymphocytes Absolute Auto 1.8 X10*3/uL (1.2-4.9); Mean Corpuscular HGB Conc 31.1 g/dl (31.0-35.0); Mean Corpuscular Volume 93.2 fL (80-98); Mean Platelet Volume 10.4 fL (9.4-12.3); Monocytes Absolute Auto 0.6 X10*3/uL (0.1-1.2); Monocytes Percent Auto 12.2 % (2-11); Neutrophils Absolute Auto 2.5 X10*3/uL (2.0-8.3); Neutrophils Percent Auto 47.4 % (45-73); Platelet Count 170 X10*3/uL (160-400); Red Blood Count 3.24 X10*6/uL (4.20-5.50); Red Cell Distribution Width 13.2 % (11.0-16.0); White Blood Count 5.3 X10*3/uL (4.8-10.8)
[2020-09-04 12:57] LABS: INTERNATIONAL NORM RATIO 0.9 (0.9-1.1); Prothrombin Time 10.9 SEC (10.8-13.0)
[2020-09-04 13:00] LABS: Partial Thromboplastin Time 38.7 SEC (24.1-38.0)
[2020-09-04 13:10] LABS: Alanine Aminotransferase 26 U/L (0-31); Albumin Level 3.5 g/dL (3.5-5.0); Alkaline Phosphatase 133 U/L (39-117); Aspartate Amino Transferase 25 U/L (5-31); Blood Urea Nitrogen 44 mg/dL (9-16); Calcium 8.4 mg/dL (8.4-10.2); Creatinine Clr Calc Pharmacy 14.6; Estimated Glomerular Filt Rate 18; Glucose Random 72 mg/dL (60-115); Total Protein 6.3 g/dL (6.5-8.0)
[2020-09-04 13:12] LABS: Troponin-I High Sensitivity < 3.5 ng/L (<3.5-17.0)
[2020-09-04 13:27] LABS: Anion Gap 15 (12-20); Bilirubin Total 0.2 mg/dL (0.0-1.0); Carbon Dioxide 19 mmol/L (22-29); Chloride 110 mmol/L (96-108); Sodium 138 mmol/L (135-145)
[2020-09-04 14:14] LABS: SARS COV2 PCR INHOUSE NEGATIVE (Negative)
[2020-09-04] MEDS: Morphine Sulfate 4 MG/ML CARTRIDGE IVPUSH ×2 (14:18→16:34)
[2020-09-04 14:53] LABS: Blood Urea Nitrogen 40 mg/dL (9-16); Creatinine Clr Calc Pharmacy 16.1; Estimated Glomerular Filt Rate 20; Glucose Random 74 mg/dL (60-115)
[2020-09-04 15:01] LABS: Anion Gap 13 (12-20); Calcium 7.8 mg/dL (8.4-10.2); Carbon Dioxide 18 mmol/L (22-29); Chloride 111 mmol/L (96-108); Potassium 4.6 mmol/l (3.3-5.1); Sodium 137 mmol/L (135-145)
[2020-09-04 16:41] VITALS: BP 146/74; PULSE 71; RESP 20; O2SAT 97
== END 2020-09-04 17:19 | disposition home or self-care (01) ==
PROVIDERS: Nurse Practitioner Primary Care; Emergency Provider Emergency Medicine
DX: J20.9 Acute bronchitis, unspecified (principal); R05 Cough; R07.9 Chest pain, unspecified; M25.561 Pain in right knee; M25.562 Pain in left knee; Z20.828 Contact with and (suspected) exposure to other viral communicable diseases; Z79.899 Other long term (current) drug therapy
CPT/HCPCS: 36415; 71045; 80048; 80053; 84484; 85025; 85610; 85730; 93971; 96374; 96376; 99284; J2270; U0003

== ENCOUNTER 2020-09-13 13:50 | Outpatient (REF) | payer MEDICARE, SELFPAY ==
--- NOTE | 2020-09-13 13:59 | XR_ITS ---
EXAMINATION: XR KNEE, RIGHT CLINICAL INFORMATION: Displaced bicondylar fracture of right tibia, follow-up. COMPARISON: 08/16/2020 right knee radiographs. TECHNIQUE: Two views of the right knee. FINDINGS: The patient is status post ORIF of the proximal tibia with [address] showing good anatomic alignment and no evidence for hardware malfunction. Moderate to severe tricompartmental degenerative joint changes are seen most pronounced in the patellofemoral joint space. There is a trace suprapatellar joint effusion. The soft tissues are unremarkable. XR/XR knee RT 2V IMPRESSION: 1. No hardware abnormality. No significant change. 2. Moderate to severe tricompartmental degenerative joint changes. Trace suprapatellar joint effusion represents mild interval decrease from the previous study.
== END 2020-09-13 13:51 | disposition home or self-care (01) ==
LOC: HO.HOSX 13:50
PROVIDERS: PCP Internal Medicine; Visit Provider Physician Assistant
DX: S82.141A Displaced bicondylar fracture of right tibia, initial encounter for closed fracture (principal); X58.XXXA Exposure to other specified factors, initial encounter; Y93.9 Activity, unspecified; Y92.9 Unspecified place or not applicable; Y99.8 Other external cause status
CPT/HCPCS: 73560; 99212

== ENCOUNTER 2020-09-18 12:29 | Outpatient (REF) | payer MEDICARE, SELFPAY ==
[2020-09-18 13:37] LABS: Anion Gap 15 (12-20); Blood Urea Nitrogen 63 mg/dL (9-16); Calcium 9.3 mg/dL (8.4-10.2); Carbon Dioxide 12 mmol/L (22-29); Chloride 114 mmol/L (96-108); Estimated Glomerular Filt Rate 17; Glucose Random 111 mg/dL (60-115); Potassium 4.2 mmol/l (3.3-5.1); Sodium 137 mmol/L (135-145)
== END 2020-09-18 12:30 | disposition home or self-care (01) ==
LOC: HO.LAB 12:29
PROVIDERS: PCP Internal Medicine; Visit Provider Nurse Practitioner Family
DX: N17.9 Acute kidney failure, unspecified (principal); E87.5 Hyperkalemia
CPT/HCPCS: 80048

== ENCOUNTER 2020-10-03 12:06 | Outpatient (REF) | payer MEDICARE, SELFPAY ==
[2020-10-03 12:11] LABS: MANUAL DIFF FLAG NO
[2020-10-03 12:15] LABS: Basophils Percent Auto 0.7 % (0-2); Eosinophils Absolute Auto 0.5 X10*3/uL (0.0-0.4); Hematocrit 27.5 % (37-47); Hemoglobin 8.7 g/dl (12.0-16.0); Imm Gran Abs Auto 0.03 X10*3/uL (0.00-0.03); Imm Gran Pct Auto 0.5 % (0.0-0.4); Lymphocytes Absolute Auto 1.5 X10*3/uL (1.2-4.9); Lymphocytes Percent Auto 26.5 % (20-40); Mean Corpuscular HGB Conc 31.6 g/dl (31.0-35.0); Mean Corpuscular Hemoglobin 28.2 pg (27.0-33.0); Mean Corpuscular Volume 89.3 fL (80-98); Mean Platelet Volume 10.1 fL (9.4-12.3); Monocytes Absolute Auto 0.5 X10*3/uL (0.1-1.2); Monocytes Percent Auto 9.9 % (2-11); Neutrophils Absolute Auto 2.9 X10*3/uL (2.0-8.3); Neutrophils Percent Auto 53.4 % (45-73); Platelet Count 181 X10*3/uL (160-400); Red Blood Count 3.08 X10*6/uL (4.20-5.50); Red Cell Distribution Width 15.1 % (11.0-16.0); White Blood Count 5.5 X10*3/uL (4.8-10.8)
[2020-10-03 12:56] LABS: Alanine Aminotransferase 6 U/L (0-31); Albumin Level 3.3 g/dL (3.5-5.0); Alkaline Phosphatase 112 U/L (39-117); Anion Gap 13 (12-20); Aspartate Amino Transferase 13 U/L (5-31); Bilirubin Total 0.4 mg/dL (0.0-1.0); Blood Urea Nitrogen 33 mg/dL (9-16); Calcium 8.2 mg/dL (8.4-10.2); Carbon Dioxide 16 mmol/L (22-29); Chloride 114 mmol/L (96-108); Estimated Glomerular Filt Rate 18; Glucose Random 86 mg/dL (60-115); Potassium 3.9 mmol/l (3.3-5.1); Sodium 139 mmol/L (135-145)
== END 2020-10-03 12:07 | disposition home or self-care (01) ==
LOC: HO.LNP 12:06
PROVIDERS: Visit Provider Internal Medicine
DX: I12.9 Hypertensive chronic kidney disease with stage 1 through stage 4 chronic kidney disease, or unspecified chronic kidney disease (principal); N18.4 Chronic kidney disease, stage 4 (severe); D63.1 Anemia in chronic kidney disease
CPT/HCPCS: 36415; 80053; 85025

== ENCOUNTER 2020-10-13 05:08 | Outpatient (REF) | payer MEDICARE, SELFPAY ==
[2020-10-13 11:25] LABS: Anion Gap 10 (12-20); Blood Urea Nitrogen 29 mg/dL (9-16); Carbon Dioxide 19 mmol/L (22-29); Chloride 118 mmol/L (96-108); Estimated Glomerular Filt Rate 24; Glucose Random 81 mg/dL (60-115); Potassium 4.4 mmol/l (3.3-5.1); Sodium 143 mmol/L (135-145)
== END 2020-10-13 05:09 | disposition home or self-care (01) ==
LOC: HO.LHD 05:08
PROVIDERS: Visit Provider Internal Medicine
DX: N18.4 Chronic kidney disease, stage 4 (severe) (principal)
CPT/HCPCS: 80048

== ENCOUNTER 2020-11-06 13:57 | Outpatient (REF) | payer MEDICARE, SELFPAY | END 2020-11-06 13:58 | disposition home or self-care (01) | LOC: HO.HOSX 13:57 | PROVIDERS: Visit Provider Orthopaedic Surgery | DX: Z13.89 Encounter for screening for other disorder (principal) ==

== ENCOUNTER 2020-11-07 10:31 | Outpatient (REF) | payer MEDICARE, SELFPAY ==
--- NOTE | 2020-11-07 10:34 | XR_ITS ---
EXAMINATION: XR KNEE, RIGHT CLINICAL INFORMATION: Tibial fracture. Follow-up. M25.561 - Pain in right knee COMPARISON: Radiographs right knee 09/13/2020, 09/16/2020 TECHNIQUE: AP and lateral views of the right knee. FINDINGS: Hardware proximal tibia is intact. There is no visible fracture line or interval osteolysis or destructive process. Bony mineralization is similar to prior exams. There are degenerative changes again seen medial lateral compartments as well as patellofemoral joint. There is a small to moderate suprapatellar effusion. XR/XR knee RT 2V IMPRESSION: 1. Hardware intact. No fracture or osteolysis. 2. Tricompartment osteoarthritis. Moderate suprapatellar effusion.
== END 2020-11-07 10:32 | disposition home or self-care (01) ==
LOC: HO.HOSX 10:31
PROVIDERS: PCP Internal Medicine; Visit Provider Orthopaedic Surgery
DX: S82.141D Displaced bicondylar fracture of right tibia, subsequent encounter for closed fracture with routine healing (principal); M25.561 Pain in right knee; M25.562 Pain in left knee
CPT/HCPCS: 73560; Q3014

== ENCOUNTER → 2021-03-16 12:16 | Outpatient (BNVA) | payer MEDICARE, SELFPAY | PROVIDERS: PCP Internal Medicine; Visit Provider Orthopaedic Surgery | DX: M17.12 Unilateral primary osteoarthritis, left knee (principal) | CPT/HCPCS: 20610; 99212; J1040 ==

== ENCOUNTER 2021-05-09 10:27 | Outpatient (REF) | payer MEDICARE, SELFPAY ==
[2021-05-09 10:56] LABS: Glucose Urine UA NEG (NEG); Leukocyte Esterase Urine 3+ (NEG); Nitrite Urine NEG (NEG); PH 6.5 (5.0-8.0); Specific Gravity - Urine <= 1.005 (1.005-1.025); Urine Blood 2+ (NEG); Urine Ketones NEG (NEG); Urine Protein 1+ MG/DL (NEG-TRACE)
[2021-05-09 10:57] LABS: Appearance Urine CLOUDY; Color Urine YELLOW
[2021-05-09 11:09] LABS: Bacteria Urine 1+ /LPF; Squamous Epithelial Cell Urine TRACE /LPF; WBC Clumps Urine NOTED
== END 2021-05-09 10:28 | disposition home or self-care (01) ==
LOC: HO.LNP 10:27
PROVIDERS: PCP Internal Medicine; Visit Provider Family Medicine
DX: N39.0 Urinary tract infection, site not specified (principal)
CPT/HCPCS: 81001; 87086; 87088; 87186

== ENCOUNTER 2021-11-28 09:31 | Outpatient (REF) | payer MEDICARE, SELFPAY ==
[2021-11-28 10:42] LABS: Alanine Aminotransferase 11 U/L (0-31); Albumin Level 3.9 g/dL (3.5-5.0); Alkaline Phosphatase 108 U/L (39-117); Anion Gap 12 (12-20); Aspartate Amino Transferase 19 U/L (5-31); Bilirubin Total 0.3 mg/dL (0.0-1.0); Blood Urea Nitrogen 36 mg/dL (9-16); Calcium 8.9 mg/dL (8.4-10.2); Carbon Dioxide 21 mmol/L (22-29); Chloride 115 mmol/L (96-108); Cholesterol 230 mg/dL; Estimated Glomerular Filt Rate 16; Glucose Random 84 mg/dL (60-115); HDL Cholesterol 54 mg/dL; LDL Cholesterol Calculated 156 mg/dl; Potassium 4.4 mmol/L (3.3-5.1); Sodium 144 mmol/L (135-145); Total Protein 7.3 g/dL (6.5-8.0); Triglycerides 101 mg/dL
== END 2021-11-28 09:32 | disposition home or self-care (01) ==
LOC: HO.LAB 09:31
PROVIDERS: PCP Internal Medicine; Visit Provider Internal Medicine
DX: E78.00 Pure hypercholesterolemia, unspecified (principal); I12.9 Hypertensive chronic kidney disease with stage 1 through stage 4 chronic kidney disease, or unspecified chronic kidney disease; N18.4 Chronic kidney disease, stage 4 (severe)
CPT/HCPCS: 36415; 80053; 80061

== ENCOUNTER 2022-01-23 11:58 | Outpatient (REF) | payer MEDICARE, SELFPAY ==
--- NOTE | ~2022-01-23 | XR_ITS ---
EXAMINATION: XR HIP, RIGHT CLINICAL INFORMATION: Fall, pain COMPARISON: Radiographs pelvis and right hip 07/13/2020 and 03/23/2020 TECHNIQUE: Two views of the right hip. FINDINGS: There is longstem right hip prosthesis with additional wiring around the proximal femur and greater trochanter. Hardware is intact. There is mild posttraumatic deformity in the area of prior injury but no visible acute fracture and no dislocation. No destructive process or osteolysis or periostitis. The visualized right SI joint and the pubis show no diastases. XR/XR hip RT min 2V IMPRESSION: -Status post right hip prosthesis. Hardware intact. -No acute fracture, dislocation, or osteolysis.
--- NOTE | ~2022-01-23 | XR_ITS ---
EXAMINATION: XR CHEST CLINICAL INFORMATION: Cough COMPARISON: Chest radiographs 09/04/2020, 04/28/2020, 10/22/2019, CT chest noncontrast 03/13/2020. TECHNIQUE: 2 views of the chest were obtained. FINDINGS: There is mild patchy opacity right base which may represent early infiltrate. The lateral view suggests blunting posterior costophrenic sulcus consistent with small effusion. There is disc atelectasis left base. The remainder the lungs are clear. The heart is normal in size. The vascularity is normal. The hilar and mediastinal contours are normal. No acute bony abnormality. No pneumothorax or pleural reaction. XR/XR chest 2V IMPRESSION: -Mild patchy opacity right base with trace effusion. -Disc atelectasis left base. -Remainder of lungs clear. -Vascularity normal. No pneumothorax.
== END 2022-01-23 11:59 | disposition home or self-care (01) ==
LOC: HO.XRAY 11:58
PROVIDERS: PCP Internal Medicine; Visit Provider Internal Medicine
DX: M25.551 Pain in right hip (principal); R05.9 Cough, unspecified; W19.XXXD Unspecified fall, subsequent encounter
CPT/HCPCS: 71046; 73502

== ENCOUNTER 2022-02-06 08:39 | Outpatient (REF) | payer MEDICARE, SELFPAY ==
[2022-02-06 08:58] LABS: MANUAL DIFF FLAG NO
[2022-02-06 09:19] LABS: Basophils Absolute Auto 0.1 X10*3/uL (0.0-0.2); Basophils Percent Auto 0.7 % (0-2); Eosinophils Absolute Auto 0.4 X10*3/uL (0.0-0.4); Eosinophils Percent Auto 5.3 % (0-4); Hematocrit 25.3 % (37.0-47.0); Hemoglobin 7.6 g/dl (12.0-16.0); Imm Gran Abs Auto 0.02 X10*3/uL (0.00-0.03); Imm Gran Pct Auto 0.3 % (0.0-0.4); Lymphocytes Absolute Auto 2.5 X10*3/uL (1.2-4.9); Mean Corpuscular Hemoglobin 28.4 pg (27.0-33.0); Mean Corpuscular Volume 94.4 fL (80.0-98.0); Monocytes Absolute Auto 0.6 X10*3/uL (0.1-1.2); Monocytes Percent Auto 8.7 % (2-11); Neutrophils Absolute Auto 3.6 x10*3/uL (2.0-8.3); Platelet Count 243 X10*3/uL (160-400); Red Blood Count 2.68 X10*6/uL (4.20-5.50); Red Cell Distribution Width 13.2 % (11.0-16.0); White Blood Count 7.2 X10*3/uL (4.8-10.8)
[2022-02-06 09:51] LABS: Alanine Aminotransferase 8 U/L (0-31); Albumin Level 3.4 g/dL (3.5-5.0); Alkaline Phosphatase 116 U/L (39-117); Anion Gap 14 (12-20); Aspartate Amino Transferase 17 U/L (5-31); Bilirubin Total 0.3 mg/dL (0.0-1.0); Blood Urea Nitrogen 35 mg/dL (9-16); Calcium 8.4 mg/dL (8.4-10.2); Carbon Dioxide 24 mmol/L (22-29); Chloride 107 mmol/L (96-108); Estimated Glomerular Filt Rate 14; Glucose Random 101 mg/dL (60-115); Iron 61 mcg/dL (30-160); Percent Iron Saturation 29 % (15-50); Potassium 4.5 mmol/L (3.3-5.1); Sodium 140 mmol/L (135-145); Total Iron Binding Capacity 209 mcg/dL (228-428); Total Protein 6.9 g/dL (6.5-8.0); Unsaturated Iron Binding 148 ug/dL
[2022-02-06 10:12] LABS: Ferritin 330 ng/mL (10-250)
[2022-02-06 10:21] LABS: Folate 3.4 ng/mL (> or = 4.0); Vitamin B12 737 pg/mL (200-900)
== END 2022-02-06 08:40 | disposition home or self-care (01) ==
LOC: HO.LAB 08:39
PROVIDERS: Absent Provider Internal Medicine Hypertension Specialist; PCP Internal Medicine; Visit Provider Internal Medicine
DX: I12.9 Hypertensive chronic kidney disease with stage 1 through stage 4 chronic kidney disease, or unspecified chronic kidney disease (principal); N18.4 Chronic kidney disease, stage 4 (severe); D64.9 Anemia, unspecified
CPT/HCPCS: 36415; 80053; 82607; 82728; 82746; 83540; 85025

== ENCOUNTER 2022-03-04 15:46 | Outpatient (REF) | payer MEDICARE, SELFPAY ==
[2022-03-04 16:05] LABS: MANUAL DIFF FLAG NO
[2022-03-04 16:16] LABS: Basophils Percent Auto 0.7 % (0-2); Eosinophils Absolute Auto 0.3 X10*3/uL (0.0-0.4); Eosinophils Percent Auto 4.7 % (0-4); Hemoglobin 7.5 g/dl (12.0-16.0); Imm Gran Abs Auto 0.02 X10*3/uL (0.00-0.03); Imm Gran Pct Auto 0.3 % (0.0-0.4); Lymphocytes Absolute Auto 1.6 X10*3/uL (1.2-4.9); Lymphocytes Percent Auto 26.5 % (20-40); Mean Corpuscular HGB Conc 31.3 g/dl (31.0-35.0); Mean Corpuscular Hemoglobin 28.7 pg (27.0-33.0); Mean Platelet Volume 9.8 fL (9.4-12.3); Monocytes Absolute Auto 0.4 X10*3/uL (0.1-1.2); Monocytes Percent Auto 6.9 % (2-11); Neutrophils Absolute Auto 3.6 x10*3/uL (2.0-8.3); Neutrophils Percent Auto 60.9 % (45-73); Platelet Count 245 X10*3/uL (160-400); Red Blood Count 2.61 X10*6/uL (4.20-5.50); Red Cell Distribution Width 14.5 % (11.0-16.0); White Blood Count 5.9 X10*3/uL (4.8-10.8)
[2022-03-04 16:31] LABS: Anion Gap 16 (12-20); Blood Urea Nitrogen 33 mg/dL (9-16); Calcium 8.7 mg/dL (8.4-10.2); Carbon Dioxide 19 mmol/L (22-29); Chloride 110 mmol/L (96-108); Estimated Glomerular Filt Rate 19; Glucose Random 86 mg/dL (60-115); Iron 52 mcg/dL (30-160); Percent Iron Saturation 24 % (15-50); Potassium 3.7 mmol/L (3.3-5.1); Sodium 141 mmol/L (135-145); Total Iron Binding Capacity 218 mcg/dL (228-428); Unsaturated Iron Binding 166 ug/dL
[2022-03-04 17:06] LABS: Folate 4.5 ng/mL (> or = 4.0); Vitamin B12 641 pg/mL (200-900)
[2022-03-05 12:42] LABS: Calcium (PTHI) 8.5 mg/dL (8.6-10.4); PTHI 331 pg/mL (16-77)
[2022-03-07 22:02] LABS: Prot Elec - Albumin 3.8 g/dL (3.8-4.8); Prot Elec - Alpha1 0.3 g/dL (0.2-0.3); Prot Elec - Alpha2 0.9 g/dL (0.5-0.9); Prot Elec - Beta 1 0.4 g/dL (0.4-0.6); Prot Elec - Beta 2 0.4 g/dL (0.2-0.5); Prot Elec - Gamma 1.4 g/dL (0.8-1.7); Prot Elec - Total Protein 7.2 g/dL (6.1-8.1)
== END 2022-03-04 15:47 | disposition home or self-care (01) ==
LOC: HO.LAB 15:46
PROVIDERS: PCP Internal Medicine; Visit Provider Internal Medicine Hypertension Specialist
DX: N18.4 Chronic kidney disease, stage 4 (severe) (principal); D63.1 Anemia in chronic kidney disease
CPT/HCPCS: 36415; 80048; 82607; 82746; 83540; 83970; 84165; 85025

== ENCOUNTER 2022-04-04 15:29 | Outpatient (REF) | payer MEDICARE, SELFPAY ==
[2022-04-04 16:29] LABS: Appearance Urine CLEAR; Color Urine YELLOW; Glucose Urine UA NEG (NEG); Leukocyte Esterase Urine NEG (NEG); Nitrite Urine NEG (NEG); Urine Blood NEG (NEG); Urine Ketones NEG (NEG); Urine Protein 1+ MG/DL (NEG-TRACE)
[2022-04-04 16:38] LABS: Bacteria Urine TRACE /LPF; RBC Urine 0 /HPF (0); Squamous Epithelial Cell Urine 1+ /LPF; WBC Urine 0 /HPF (0-4)
== END 2022-04-04 15:30 | disposition home or self-care (01) ==
LOC: HO.LAB 15:29
PROVIDERS: PCP Internal Medicine; Visit Provider Internal Medicine
DX: R30.0 Dysuria (principal)
CPT/HCPCS: 81001; 87086

== ENCOUNTER 2022-04-09 15:02 | Outpatient (REF) | payer MEDICARE, SELFPAY | END 2022-04-09 15:03 | disposition home or self-care (01) | LOC: HO.CT 15:02 | PROVIDERS: Visit Provider Internal Medicine | DX: Z13.89 Encounter for screening for other disorder (principal) ==

== ENCOUNTER 2022-04-09 15:32 | Outpatient (REF) | payer MEDICARE, SELFPAY | END 2022-04-09 15:33 | disposition home or self-care (01) | LOC: HO.CT 15:32 | PROVIDERS: Visit Provider Internal Medicine | DX: Z13.89 Encounter for screening for other disorder (principal) ==

== ENCOUNTER 2022-04-16 13:09 | Outpatient (REF) | payer MEDICARE, SELFPAY ==
--- NOTE | ~2022-04-16 | CT_ITS ---
EXAMINATION: CT ABDOMEN AND PELVIS WITHOUT CONTRAST CLINICAL INFORMATION: Weight loss COMPARISON: Previous CT of the abdomen and pelvis September 2019 TECHNIQUE: Multidetector volumetric imaging was performed from the superior aspect of the liver through the pubic symphysis. Sagittal and coronal reformatted images were obtained on the technologist's workstation. This CT examination was performed using dose optimization techniques as appropriate, variously including the following: *Automated exposure control *Adjustment of mA and/or kV according to patient size (this includes techniques or standardized protocols for targeted exams where dose is matched to indication/reason for exam; i.e. extremities or head) *Use of iterative reconstruction technique DLP: 264 mGy-cm FINDINGS: LUNG BASES: There is atelectasis or scarring at the left lung base that is stable. LIVER, GALLBLADDER, AND BILIARY TREE: The liver is normal in size, shape, and attenuation. No focal hepatic lesion appreciated. The gallbladder is been removed. There is mild intra and extrahepatic biliary duct dilatation. This is similar to previous exam from 2019. The common bile duct measures up to 1 cm. PANCREAS: There is mild dilatation of the main pancreatic duct measuring up to exclude millimeters in the head of the pancreas. This does not appear appreciably changed from 2019 exam. SPLEEN: Unremarkable. ADRENAL GLANDS: Unremarkable. KIDNEYS AND URETERS: The kidneys are normal in size, shape, and attenuation. No hydronephrosis, hydroureter, or calculi seen. There are left renal cysts that are stable. Largest measures 2 cm. No imaging follow-up needed. BLADDER: Not optimally distended. GASTROINTESTINAL TRACT: There is mild diverticulosis of the colon. No evidence of diverticulitis. There is stool throughout the colon questionable for constipation. The small and large bowel are otherwise unremarkable. The appendix is not seen. ABDOMINAL WALL: No significant hernia is appreciated. LYMPH NODES: Normal. VASCULAR: There is severe atherosclerotic disease. There is calcification at the origin of the mesenteric vessels. There is a 1 cm calcification with lucent center in the small bowel mesentery questionable for aneurysm with calcified wall. There is an adjacent smaller 6 mm calcification with lucent center also questionable for aneurysm with calcified wall. PELVIC VISCERA: Unremarkable. OSSEOUS STRUCTURES: There is a right hip replacement. There are cerclage wires seen and evidence of old trauma to the right proximal femur. There is an old fracture of the right inferior pubic ramus. There is a compression fracture of the left superior endplate of the L2 vertebral body. This is new in the interval from 2019 CT scan. There is multilevel degenerative change of the spine. CT/CT abdomen pelvis wo con IMPRESSION: Severe atherosclerotic disease. There is calcification at the origins of the mesenteric vessels and 2 mesenteric calcifications with lucent centers questionable for calcified aneurysm. Follow-up CTA of the abdomen should be considered. Mild intrahepatic extrahepatic biliary duct dilatation and mild dilatation of the main pancreatic duct in the head of the pancreas. This is similar to previous CT scan September 2019. Mild diverticulosis of the colon. No evidence of diverticulitis. Stool throughout the colon questionable for constipation. Left renal cysts. Old trauma to the pelvis and right femur. Recent appearing mild compression fracture of the left superior endplate of the L2 vertebral body. . Fleischner guidelines were followed. Findings will be communicated by the [place] work flow coating machine operator helper.
[2022-04-16] MEDS: Barium Sulfate Oral (Vanilla) 450 ML ORAL.SUSP 900 ML PO (16:32)
== END 2022-04-16 13:10 | disposition home or self-care (01) ==
LOC: HO.CT 13:09
PROVIDERS: PCP Internal Medicine; Visit Provider Internal Medicine
DX: R63.4 Abnormal weight loss (principal); Z90.49 Acquired absence of other specified parts of digestive tract
CPT/HCPCS: 74176

== ENCOUNTER 2022-06-03 11:56 | Outpatient (REF) | payer MEDICARE, SELFPAY ==
--- NOTE | ~2022-06-03 | XR_ITS ---
EXAMINATION: XR KNEE, RIGHT XR KNEE AP STANDING CLINICAL INFORMATION: Pain. COMPARISON: Prior radiographs, including 07/13/2009. TECHNIQUE: Lateral and axial views of the right knee were obtained. AP bilateral standing view of the knees was obtained. FINDINGS: There is bony demineralization. The lateral and medial joint space compartments of the right knee are well-maintained. There is marked narrowing of the patellofemoral compartment. There is tricompartment peripheral osteophyte formation. There is a small right knee joint effusion. Intact orthopedic screws are applied to the proximal right femoral metaphysis. The lateral and medial joint space compartment of the left knee are well-maintained and show peripheral osteophyte formation. There is bilateral chondrocalcinosis. There is no fracture or dislocation. No significant varus or valgus configuration is seen bilaterally. There are atherosclerotic calcifications. XR/XR knee standing BI IMPRESSION: 1. There is tricompartment osteoarthritic change of the right knee, most pronounced of the patellofemoral compartment, where it is severe. 2. There is mild osteoarthritic change of the left knee. 3. There is chondrocalcinosis, which can be associated with CPPD. 4. There is a small right knee joint effusion.
--- NOTE | ~2022-06-03 | XR_ITS ---
EXAMINATION: XR KNEE, RIGHT XR KNEE AP STANDING CLINICAL INFORMATION: Pain. COMPARISON: Prior radiographs, including 07/13/2009. TECHNIQUE: Lateral and axial views of the right knee were obtained. AP bilateral standing view of the knees was obtained. FINDINGS: There is bony demineralization. The lateral and medial joint space compartments of the right knee are well-maintained. There is marked narrowing of the patellofemoral compartment. There is tricompartment peripheral osteophyte formation. There is a small right knee joint effusion. Intact orthopedic screws are applied to the proximal right femoral metaphysis. The lateral and medial joint space compartment of the left knee are well-maintained and show peripheral osteophyte formation. There is bilateral chondrocalcinosis. There is no fracture or dislocation. No significant varus or valgus configuration is seen bilaterally. There are atherosclerotic calcifications. XR/XR knee RT 2V IMPRESSION: 1. There is tricompartment osteoarthritic change of the right knee, most pronounced of the patellofemoral compartment, where it is severe. 2. There is mild osteoarthritic change of the left knee. 3. There is chondrocalcinosis, which can be associated with CPPD. 4. There is a small right knee joint effusion.
== END 2022-06-03 11:57 | disposition home or self-care (01) ==
LOC: HO.HOSX 11:56
PROVIDERS: Visit Provider Orthopaedic Surgery
DX: M17.11 Unilateral primary osteoarthritis, right knee (principal); M17.12 Unilateral primary osteoarthritis, left knee; R53.81 Other malaise; S82.141D Displaced bicondylar fracture of right tibia, subsequent encounter for closed fracture with routine healing; X58.XXXD Exposure to other specified factors, subsequent encounter
CPT/HCPCS: 20610; 73560; 73565; 99212; J1100

== ENCOUNTER 2022-06-10 13:22 | Outpatient (REF) | payer MEDICARE, SELFPAY ==
[2022-06-10 13:54] LABS: Hematocrit 30.3 % (37.0-47.0); Hemoglobin 9.4 g/dl (12.0-16.0); Mean Corpuscular Hemoglobin 28.5 pg (27.0-33.0); Mean Corpuscular Volume 91.8 fL (80.0-98.0); Mean Platelet Volume 9.2 fL (9.4-12.3); Platelet Count 381 X10*3/uL (160-400); Red Cell Distribution Width 14.9 % (11.0-16.0); White Blood Count 7.3 X10*3/uL (4.8-10.8)
[2022-06-10 14:22] LABS: Anion Gap 18 (12-20); Blood Urea Nitrogen 44 mg/dL (9-16); Calcium 8.4 mg/dL (8.4-10.2); Carbon Dioxide 19 mmol/L (22-29); Chloride 108 mmol/L (96-108); Estimated Glomerular Filt Rate 15; Sodium 141 mmol/L (135-145)
== END 2022-06-10 13:23 | disposition home or self-care (01) ==
LOC: HO.LAB 13:22
PROVIDERS: PCP Internal Medicine; Visit Provider Internal Medicine Hypertension Specialist
DX: N18.4 Chronic kidney disease, stage 4 (severe) (principal)
CPT/HCPCS: 36415; 80051; 82310; 82565; 84520; 85027

== ENCOUNTER 2022-06-25 09:48 | Day surgery (SDC) | payer MEDICARE, SELFPAY ==
[2022-06-19 14:56] VITALS: BMI 15.9
[2022-06-25 10:18] VITALS: BP 145/85; PULSE 110; RESP 19; TEMP 36.6; O2SAT 98
--- NOTE | 2022-06-25 10:37 | P.CONAN_ITS ---
FORM[facility]LY [facility], 1928–1983 Active Problems Active Problems: All Active Problems (Updated 06/19/22 @ 15:42 by Teresa Dozier RN) Tibial plateau fracture, right (Acute) Tibial plateau fracture, right (Acute) Primary osteoarthritis of left knee (Acute) Primary localized osteoarthritis of right knee (Acute) Physical deconditioning (Acute) Past Medical History Medical History (Updated 06/19/22 @ 15:42 by Teresa Dozier, RN) Anemia Anxiety and depression Asthma Back pain Chronic anemia CKD (chronic kidney disease) COPD (chronic obstructive pulmonary disease) GERD (gastroesophageal reflux disease) Hiatal hernia Hyperlipidemia Hypertension Osteoarthritis Family History Family history of problems with anesthesia: No Surgical History Surgical History (Updated 06/19/22 @ 14:53 by Teresa Dozier RN) H/O of rectopexy H/O: hysterectomy History of bowel resection History of cholecystectomy History of esophagogastroduodenoscopy (EGD) History of left-sided carotid endarterectomy History of open reduction and internal fixation (ORIF) procedure History of total right hip arthroplasty Hx of breast biopsy Hx of colonoscopy History of Problems with Anesthesia: No Social History Social History Household Members: Family and Other Housing: Apartment Do you presently have visiting nurse or other home services: Yes (physical therapy) Patient Tobacco Use Status: Former Tobacco user Second Hand Smoke Exposure: No Substance Use Type: Marijuana Are you DNR?: No Advance Directives: No Advance Directives Information Provided: Yes service: No Current occupational status: retired Meds Allergies Allergy/AdvReac Type Severity Reaction Status Date / Time codeine [Codeine] Allergy Mild RASH Verified 06/19/22 14:09 Sulfa (Sulfonamide Allergy Mild HIVES Verified 06/19/22 14:09 Antibiotics) [Sulfa (Sulfonamides)] ibuprofen [From Motrin] AdvReac Mild STOMACH Verified 06/19/22 14:09 UPSET, Rectal bleeding Active Medications: Current Medications Lactated Ringer's (Lr) 1,000 mls @ 50 mls/hr IVCONT .Q20H [facility] Home Medications Medication Instructions Recorded Confirmed Last Taken Type albuterol sulfate 2.5 mg/3 mL 1 vial inhalation QID 07/28/20 06/19/22 06/25/22 History (0.083 %) solution for nebulization esomeprazole magnesium 40 mg 40 mg PO DAILY 07/28/20 06/19/22 Unknown History capsule,delayed release montelukast 10 mg tablet 1 tab PO BEDTIME 07/28/20 06/19/22 Unknown History sodium chloride 7 % for 1 vial inhalation BID 07/28/20 06/19/22 Unknown History nebulization albuterol sulfate 90 mcg/actuation 2 puff inhalation Q6H PRN 08/01/20 06/19/22 Unknown History aerosol inhaler (ProAir HFA) Shortness Of Breath cholecalciferol (vitamin D3) 50 50 mcg PO DAILY 08/01/20 06/19/22 Unknown History mcg (2,000 unit) tablet cyclobenzaprine 10 mg tablet 10 mg PO TID PRN Muscle Spasm 08/01/20 06/19/22 Unknown History ferrous sulfate 325 mg (65 mg 325 mg PO BID 08/01/20 06/19/22 06/18/22 History iron) tablet fluoxetine 40 mg capsule 40 mg PO QAM 08/01/20 06/19/22 06/25/22 History fluticasone propionate 50 2 spray intranasal DAILY 08/01/20 06/19/22 Unknown History mcg/actuation nasal spray,suspension (Flonase Allergy Relief) hydralazine 10 mg tablet 10 mg PO BID 08/01/20 06/19/22 Unknown History lorazepam 0.5 mg tablet 0.5 mg PO BID 08/01/20 06/19/22 Unknown History mirtazapine 7.5 mg tablet 7.5 mg PO BEDTIME 08/01/20 06/19/22 Unknown History pantoprazole 40 mg tablet,delayed 40 mg PO DAILY 08/01/20 06/19/22 06/25/22 History release terazosin 1 mg tablet 1 mg PO BEDTIME 08/01/20 06/19/22 Unknown History aspirin 81 mg capsule 81 mg PO DAILY 06/19/22 06/19/22 06/18/22 History atorvastatin 40 mg tablet 1 tab PO DAILY 06/19/22 06/19/22 Unknown History cetirizine 10 mg tablet 10 mg PO DAILY 06/19/22 06/19/22 Unknown History fluticasone propionate 115 2 puff inhalation BID 06/19/22 06/19/22 Unknown History mcg-salmeterol 21 mcg/actuation HFA inhaler (Advair HFA) latanoprost 0.005 % eye drops 1 drp ophthalmic (eye) BEDTIME 06/19/22 06/19/22 Unknown History topiramate 50 mg capsule,extended 50 mg PO DAILY 06/19/22 06/19/22 Unknown History release 24 hr Exam Exam Date and Time: June 25, 2022 1037 Height,Weight and Vital Signs: Height 5 ft 6.5 in Weight 45.359 kg Last Vital Signs Temp 98 F 06/25/22 10:18 Pulse 110 H 06/25/22 10:18 Resp 19 06/25/22 10:18 BP 145/85 H 06/25/22 10:18 Pulse Ox 98 06/25/22 10:18 O2 Del Method 06/25/22 10:18 Airway Mallampati Class: I TM Dist: >3cm Neck ROM: Full Assessment and Plan Assessment Anesthesia Assessment: Anesthesia Plan Discussed and Chart Reviewed Final Anesthetic Review Family History of Problems with Anesthesia: No History of Problems with Anesthesia: No NPO: Yes ASA Class: III Final Preanesthetic Review: No Changes in Pt Med Stat, Meds/Allgs Chart Reviewed, Consent Obtained/Reviewed and Anes Risks/Benef Reviewed Patient Risk: Intermediate Procedure Risk: Low Anesthetic Plan Anesthetic Plan: MAC: Disposition: Standard PACU
--- NOTE | 2022-06-25 10:46 | P.CONAN_ITS ---
[facility] Active Problems Active Problems: All Active Problems (Updated 06/19/22 @ 15:42 by Teresa Dozier RN) Tibial plateau fracture, right (Acute) Tibial plateau fracture, right (Acute) Primary osteoarthritis of left knee (Acute) Primary localized osteoarthritis of right knee (Acute) Physical deconditioning (Acute) Past Medical History Medical History (Updated 06/19/22 @ 15:42 by Teresa Dozier, RN) Anemia Anxiety and depression Asthma Back pain Chronic anemia CKD (chronic kidney disease) COPD (chronic obstructive pulmonary disease) GERD (gastroesophageal reflux disease) Hiatal hernia Hyperlipidemia Hypertension Osteoarthritis Family History Family history of problems with anesthesia: No Surgical History Surgical History (Updated 06/19/22 @ 14:53 by Teresa Dozier RN) H/O of rectopexy H/O: hysterectomy History of bowel resection History of cholecystectomy History of esophagogastroduodenoscopy (EGD) History of left-sided carotid endarterectomy History of open reduction and internal fixation (ORIF) procedure History of total right hip arthroplasty Hx of breast biopsy Hx of colonoscopy History of Problems with Anesthesia: No Social History Social History Household Members: Family and Other Housing: Apartment Do you presently have visiting nurse or other home services: Yes (physical therapy) Patient Tobacco Use Status: Former Tobacco user Second Hand Smoke Exposure: No Substance Use Type: Marijuana Are you DNR?: No Advance Directives: No Advance Directives Information Provided: Yes service: No Current occupational status: retired Meds Allergies Allergy/AdvReac Type Severity Reaction Status Date / Time codeine [Codeine] Allergy Mild RASH Verified 06/19/22 14:09 Sulfa (Sulfonamide Allergy Mild HIVES Verified 06/19/22 14:09 Antibiotics) [Sulfa (Sulfonamides)] ibuprofen [From Motrin] AdvReac Mild STOMACH Verified 06/19/22 14:09 UPSET, Rectal bleeding Active Medications: Current Medications Albuterol Sulfate (Albuterol Sulfate (0.083%) 2.5 Mg/3 Ml Vial.Neb) 2.5 mg INHALE PREOP ONE Stop: 06/25/22 10:46 Lactated Ringer's (Lr) 1,000 mls @ 50 mls/hr IVCONT .Q20H [facility] Home Medications Medication Instructions Recorded Confirmed Last Taken Type albuterol sulfate 2.5 mg/3 mL 1 vial inhalation QID 07/28/20 06/19/22 06/25/22 History (0.083 %) solution for nebulization esomeprazole magnesium 40 mg 40 mg PO DAILY 07/28/20 06/19/22 Unknown History capsule,delayed release montelukast 10 mg tablet 1 tab PO BEDTIME 07/28/20 06/19/22 Unknown History sodium chloride 7 % for 1 vial inhalation BID 07/28/20 06/19/22 Unknown History nebulization albuterol sulfate 90 mcg/actuation 2 puff inhalation Q6H PRN 08/01/20 06/19/22 Unknown History aerosol inhaler (ProAir HFA) Shortness Of Breath cholecalciferol (vitamin D3) 50 50 mcg PO DAILY 08/01/20 06/19/22 Unknown History mcg (2,000 unit) tablet cyclobenzaprine 10 mg tablet 10 mg PO TID PRN Muscle Spasm 08/01/20 06/19/22 Unknown History ferrous sulfate 325 mg (65 mg 325 mg PO BID 08/01/20 06/19/22 06/18/22 History iron) tablet fluoxetine 40 mg capsule 40 mg PO QAM 08/01/20 06/19/22 06/25/22 History fluticasone propionate 50 2 spray intranasal DAILY 08/01/20 06/19/22 Unknown History mcg/actuation nasal spray,suspension (Flonase Allergy Relief) hydralazine 10 mg tablet 10 mg PO BID 08/01/20 06/19/22 Unknown History lorazepam 0.5 mg tablet 0.5 mg PO BID 08/01/20 06/19/22 Unknown History mirtazapine 7.5 mg tablet 7.5 mg PO BEDTIME 08/01/20 06/19/22 Unknown History pantoprazole 40 mg tablet,delayed 40 mg PO DAILY 08/01/20 06/19/22 06/25/22 History release terazosin 1 mg tablet 1 mg PO BEDTIME 08/01/20 06/19/22 Unknown History aspirin 81 mg capsule 81 mg PO DAILY 06/19/22 06/19/22 06/18/22 History atorvastatin 40 mg tablet 1 tab PO DAILY 06/19/22 06/19/22 Unknown History cetirizine 10 mg tablet 10 mg PO DAILY 06/19/22 06/19/22 Unknown History fluticasone propionate 115 2 puff inhalation BID 06/19/22 06/19/22 Unknown History mcg-salmeterol 21 mcg/actuation HFA inhaler (Advair HFA) latanoprost 0.005 % eye drops 1 drp ophthalmic (eye) BEDTIME 06/19/22 06/19/22 Unknown History topiramate 50 mg capsule,extended 50 mg PO DAILY 06/19/22 06/19/22 Unknown History release 24 hr Exam Exam Date and Time: June 25, 2022 1046 Height,Weight and Vital Signs: Height 5 ft 6.5 in Weight 45.359 kg Last Vital Signs Temp 98 F 06/25/22 10:18 Pulse 110 H 06/25/22 10:18 Resp 19 06/25/22 10:18 BP 145/85 H 06/25/22 10:18 Pulse Ox 98 06/25/22 10:18 O2 Del Method 06/25/22 10:18 Airway Mallampati Class: I TM Dist: >3cm Neck ROM: Full Loose/Missing/Broken Teeth: Yes, Upper and Lower Assessment and Plan Assessment Anesthesia Assessment: Anesthesia Plan Discussed, Smoking Cess. Discussed and Chart Reviewed Final Anesthetic Review Family History of Problems with Anesthesia: No History of Problems with Anesthesia: No NPO: Yes ASA Class: III Final Preanesthetic Review: No Changes in Pt Med Stat, Meds/Allgs Chart Reviewed, Consent Obtained/Reviewed and Anes Risks/Benef Reviewed Patient Risk: Intermediate Procedure Risk: Low Anesthetic Plan Anesthetic Plan: MAC: Disposition: Standard PACU
[2022-06-25] MEDS: Lactated Ringers 1,000 ML 50 ML IVCONT (10:51)
[2022-06-25] MEDS: Albuterol Sulfate (0.083%) 2.5 MG/3 ML VIAL.NEB INHALE (10:53)
--- NOTE | 2022-06-25 10:53 | PC.NURSE ---
resp tx given per anesthesia order ls clear nonproductive chronic cough
[2022-06-25 10:55] VITALS: PULSE 96; RESP 16; O2SAT 97
--- NOTE | 2022-06-25 11:22 | MHC.SHP ---
Pre-Procedural Eval Section A Date of Service: 06/25/22 Section B Chief Complaint: anemia,diarrhea,reflux disease Details of Present Illness: see H&P no changes Relevant Family History (Specify if Yes): No Relevant Social History: None Present Medications: see Short Stay Collaborative assessment Medical History: No relevant PMH History of Previous Operations: No relevant previous surgery Allergies: Allergies Allergy/AdvReac Type Severity Reaction Status Date / Time codeine [Codeine] Allergy Mild RASH Verified 06/19/22 14:09 Sulfa (Sulfonamide Allergy Mild HIVES Verified 06/19/22 14:09 Antibiotics) [Sulfa (Sulfonamides)] ibuprofen [From Motrin] AdvReac Mild STOMACH Verified 06/19/22 14:09 UPSET, Rectal bleeding Review of Systems Sugical H&P ROS: Negative: Constitution, Cardiovascular, Respiratory, Psychiatric, Hem-Onc, Allergic/Immunologic, Gastrointestinal, Genitourinary, Musculoskeletal, Integumentary, Endocrine and Eyes/Ears/Nose/Throat and Yes, Specify: Neurological (headache) Exam Surgical H&P Exam: Normal: HEENT, Normal: Heart, Normal: Lungs, Normal: Extremities, Normal: Abdomen, Normal: Skin and Normal: Neurological Plan Diagnosis/Plan: Unchanged I have reviewed the history and physical and performed a pertinent physical examination on my patient. No changes have occurred unless specified.
--- NOTE | 2022-06-25 12:19 | P.BOP_ITS ---
Brief Operative Note Date of Service: 06/25/22 Pre-op diagnosis: diarrhea, gerd, anemia Post-op diagnosis: same Procedure: colon, egd Surgeon: Antonino Chiang Anesthesia: MAC Was an Code Enforcement Officer used for this Procedure?: No Estimated blood loss (mL): 5 Pathology: other Condition: stable Disposition: PACU
[2022-06-25 12:28] VITALS: BP 124/69; PULSE 99; RESP 16; TEMP 36.5; O2SAT 98
[2022-06-25] MEDS: Acetaminophen 325 MG TABLET PO (12:42)
[2022-06-25 12:48] VITALS: BP 143/99; PULSE 89; RESP 18; TEMP 36.6; O2SAT 97
--- NOTE | 2022-06-25 23:22 | OP_ITS ---
SURGEON: Antonino Chiang MD INDICATIONS: Gastroesophageal reflux disease, anemia, and diarrhea. Date: 06/25/22 PREOPERATIVE DIAGNOSIS: POSTOPERATIVE DIAGNOSIS: PROCEDURE PERFORMED: ESTIMATED BLOOD LOSS: COMPLICATIONS: ANESTHESIA: ASSISTANTS: SPECIMENS: PROCEDURES: Colonoscopy to the cecum with biopsy, upper endoscopy with biopsy. MEDICATIONS: Monitored anesthesia care. DESCRIPTION OF PROCEDURE: The history and physical performed. The risks and benefits of the procedure were explained to the patient and her daughter and informed consent was obtained. The patient was placed in the left lateral decubitus position. A digital rectal exam was performed and was found to be normal. The Olympus pediatric video colonoscope was introduced into the rectum and advanced to the cecum without difficulty. The cecum was identified by transillumination, palpation, and identification of ileocecal valve. Examination was performed and the scope was removed. She was repositioned for upper endoscopy. The Olympus video gastroscope was introduced into the esophagus, stomach, and duodenum. Examination was performed. The scope was removed. She tolerated both procedures well and was returned to recovery room in stable condition. FINDINGS: 1. Colonoscopy. The terminal ileum was not examined. There was liquid stool coating the mucosa in the cecum, right colon, and transverse colon, which limited the sensitivity examination for detection of small polyps. This was washed and suctioned as best possible. There was no evidence of colitis. Biopsies were obtained from the sigmoid. Retroflexed examination showed small internal hemorrhoids. 2. Upper endoscopy: a. Esophagus: The esophagus was normal. There was no esophagitis. b. Stomach: The stomach showed no evidence of masses, ulcers, or polyps. There was some mild linear streaks of erythema consistent with gastritis. Biopsies were obtained from the antrum. c. Duodenum: The bulb and second portion were normal. Biopsies were obtained from the second portion to rule out malabsorption. IMPRESSION: 1. Normal colonoscopy. 2. Gastritis. 3. Gastroesophageal reflux disease. RECOMMENDATION: 1. Follow up the biopsy results. 2. Repeat colonoscopy for screening purposes is not recommended based on the patient's age. MD NICHOLAS Luther/JEAN PAUL / [id number] MTDD
== END 2022-06-25 14:04 | disposition home or self-care (01) ==
PROVIDERS: PCP Internal Medicine; Visit Provider Internal Medicine Gastroenterology
PROC: (CPT 45380; principal; 2022-06-25 11:20)
DX: D64.9 Anemia, unspecified (principal); K29.50 Unspecified chronic gastritis without bleeding; K64.8 Other hemorrhoids; R19.7 Diarrhea, unspecified; K21.9 Gastro-esophageal reflux disease without esophagitis; Z80.0 Family history of malignant neoplasm of digestive organs; I12.9 Hypertensive chronic kidney disease with stage 1 through stage 4 chronic kidney disease, or unspecified chronic kidney disease; N18.9 Chronic kidney disease, unspecified; E78.00 Pure hypercholesterolemia, unspecified; J44.9 Chronic obstructive pulmonary disease, unspecified; G43.909 Migraine, unspecified, not intractable, without status migrainosus; R63.4 Abnormal weight loss; Z68.1 Body mass index [BMI] 19.9 or less, adult; Z79.51 Long term (current) use of inhaled steroids; Z79.82 Long term (current) use of aspirin; Z79.899 Other long term (current) drug therapy; Z88.2 Allergy status to sulfonamides; Z88.8 Allergy status to other drugs, medicaments and biological substances; Z90.49 Acquired absence of other specified parts of digestive tract; Z87.891 Personal history of nicotine dependence; Z96.641 Presence of right artificial hip joint
CPT/HCPCS: 45380; 43239; 88305; 88342; 94640

== ENCOUNTER 2022-07-17 09:57 | Outpatient (REF) | payer MEDICARE, SELFPAY ==
[2022-07-17 10:17] LABS: MANUAL DIFF FLAG NO
[2022-07-17 10:50] LABS: Basophils Percent Auto 0.8 % (0-2); Eosinophils Absolute Auto 0.1 X10*3/uL (0.0-0.4); Eosinophils Percent Auto 2.8 % (0-4); Hematocrit 29.8 % (37.0-47.0); Hemoglobin 8.9 g/dl (12.0-16.0); Imm Gran Abs Auto 0.01 X10*3/uL (0.00-0.03); Imm Gran Pct Auto 0.2 % (0.0-0.4); Lymphocytes Absolute Auto 1.8 X10*3/uL (1.2-4.9); Lymphocytes Percent Auto 36.1 % (20-40); Mean Corpuscular HGB Conc 29.9 g/dl (31.0-35.0); Mean Corpuscular Hemoglobin 27.8 pg (27.0-33.0); Mean Corpuscular Volume 93.1 fL (80.0-98.0); Mean Platelet Volume 9.9 fL (9.4-12.3); Monocytes Absolute Auto 0.3 X10*3/uL (0.1-1.2); Monocytes Percent Auto 6.9 % (2-11); Neutrophils Absolute Auto 2.6 x10*3/uL (2.0-8.3); Neutrophils Percent Auto 53.2 % (45-73); Platelet Count 267 X10*3/uL (160-400); Red Cell Distribution Width 15.9 % (11.0-16.0)
[2022-07-17 11:23] LABS: Anion Gap 15 (12-20); Blood Urea Nitrogen 37 mg/dL (9-16); Calcium 8.6 mg/dL (8.4-10.2); Carbon Dioxide 22 mmol/L (22-29); Chloride 113 mmol/L (96-108); Estimated Glomerular Filt Rate 16; Potassium 4.4 mmol/L (3.3-5.1); Sodium 146 mmol/L (135-145)
== END 2022-07-17 09:58 | disposition home or self-care (01) ==
LOC: HO.LAB 09:57
PROVIDERS: PCP Internal Medicine; Visit Provider Internal Medicine Hypertension Specialist
DX: N18.4 Chronic kidney disease, stage 4 (severe) (principal)
CPT/HCPCS: 36415; 80051; 82310; 82565; 84520; 85025

== ENCOUNTER 2022-09-10 13:42 | Outpatient (REF) | payer MEDICARE, SELFPAY ==
[2022-09-10 14:31] LABS: Hematocrit 25.6 % (37.0-47.0); Hemoglobin 7.7 g/dl (12.0-16.0); Mean Corpuscular HGB Conc 30.1 g/dl (31.0-35.0); Mean Corpuscular Hemoglobin 27.9 pg (27.0-33.0); Mean Corpuscular Volume 92.8 fL (80.0-98.0); Mean Platelet Volume 9.7 fL (9.4-12.3); Platelet Count 295 X10*3/uL (160-400); Red Blood Count 2.76 X10*6/uL (4.20-5.50); Red Cell Distribution Width 14.3 % (11.0-16.0)
== END 2022-09-10 13:43 | disposition home or self-care (01) ==
LOC: HO.LAB 13:42
PROVIDERS: PCP Internal Medicine; Visit Provider Internal Medicine Hypertension Specialist
DX: N18.4 Chronic kidney disease, stage 4 (severe) (principal)
CPT/HCPCS: 36415; 85027

== ENCOUNTER → 2022-09-16 11:54 | Outpatient (BNVA) | payer MEDICARE, SELFPAY | PROVIDERS: PCP Internal Medicine; Visit Provider Orthopaedic Surgery | DX: M17.0 Bilateral primary osteoarthritis of knee (principal) | CPT/HCPCS: 20610; 99212; J1100 ==

== ENCOUNTER 2022-12-09 13:27 | Inpatient (IN) | payer MEDICARE, SELFPAY ==
[2022-12-09] VITALS (9 sets, daily range): BP systolic 136–207; BP diastolic 78–108; PULSE 69–93; RESP 14–18; TEMP 36.4–37.1; O2SAT 93–98; BMI 15.6
--- NOTE | ~2022-12-09 | CT_ITS ---
EXAMINATION: CT HEAD WITHOUT CONTRAST CLINICAL INFORMATION: Headache. High blood pressure. COMPARISON: Previous head CT June 2020 TECHNIQUE: Contiguous axial imaging was performed from the skull base to vertex without intravenous administration of contrast. This CT examination was performed using dose optimization techniques as appropriate, variously including the following: *Automated exposure control *Adjustment of mA and/or kV according to patient size (this includes techniques or standardized protocols for targeted exams where dose is matched to indication/reason for exam; i.e. extremities or head) *Use of iterative reconstruction technique DLP: 592 mGy-cm FINDINGS: There is no intracranial hemorrhage, hematoma, or extra-axial fluid collection. Mild generalized atrophy. There is no hydrocephalus, edema, or mass effect. The chapa-white matter differentiation is similar to prior exams. There is small lacunar infarct again seen right basal ganglia similar to prior studies. There is no visible acute territorial infarct or mass lesion. The calvarium appears intact. There is no pneumocephalus or orbital emphysema. There are no air-fluid levels in the visualized sinuses or middle ears or mastoids. CT/CT head/brain wo IV con IMPRESSION: No acute intracranial pathology.
--- NOTE | ~2022-12-09 | US_ITS ---
EXAMINATION: US RETROPERITONEAL LIMITED (RENAL ONLY) CLINICAL INFORMATION: Acute kidney insufficiency. Hyponatremia. COMPARISON: Multiple prior examinations including CT scan of the abdomen and pelvis 03/2022. Renal ultrasound 07/2018. TECHNIQUE: South scale imaging of the kidneys was performed. FINDINGS: RIGHT KIDNEY: 7.9 x 3.5 x 4.3 cm (SAG x AP x TRV). There is increased parenchymal echogenicity similar to prior and compatible with medical renal disease. No hydronephrosis. No stones. Two small simple cysts noted measuring up to 1.1 cm. No follow up necessary. LEFT KIDNEY: 8.7 x 4.6 x 3.5 cm (SAG x AP x TRV). Increased echogenicity compatible with medical renal disease. Multiple cysts noted, largest measuring 2.3 cm. Cysts also seen on prior imaging examinations. No follow up necessary. No hydronephrosis no stones. US/US renal BI IMPRESSION: Stable increased echogenicity of both kidneys similar to that noted on prior ultrasound examinations and compatible with medical renal disease. Bilateral renal cysts. No follow up necessary.
--- NOTE | ~2022-12-09 | XR_ITS ---
EXAMINATION: XR CHEST CLINICAL INFORMATION: Cough COMPARISON: Previous chest x-ray December 2021 TECHNIQUE: Frontal view of the chest was obtained. FINDINGS: The cardiac and mediastinal contours are stable. There is atelectasis or small and heart left lung base. The lungs are otherwise clear. There is no pleural effusion or pneumothorax. There are degenerative changes of the spine. XR/XR chest 1V IMPRESSION: Atelectasis or small infiltrate at the left lung base.
--- NOTE | 2022-12-09 14:18 | ECG_ITS ---
Test Reason : CP Blood Pressure : / mmHG Vent. Rate : 083 BPM Atrial Rate : 083 BPM P-R Int : 146 ms QRS Dur : 082 ms QT Int : 386 ms P-R-T Axes : 072 030 098 degrees QTc Int : 453 ms Sinus rhythm with frequent Premature ventricular complexes Minimal voltage criteria for LVH, may be normal variant ( Sokolow-Arias ) Nonspecific ST and T wave abnormality Abnormal ECG When compared with ECG of 13-JUL-2020 21:38, Premature ventricular complexes are now Present Nonspecific T wave abnormality now evident in Lateral leads Referred By: Elsa Boston Electronically Signed By:Davis Dang
--- NOTE | 2022-12-09 14:21 | ED.HA ---
HPI - Headache General Chief Complaint: Headache Stated Complaint: HIGH BP 210/110,CP,COUGH,VOMITING PER EMS Time Seen by Provider: 12/09/22 14:03 Source: patient and EMS Mode of arrival: EMS Limitations: no limitations History of Present Illness HPI Narrative: Patient comes to the emergency room complaining of a severe headache that started yesterday. Patient went to see her primary care physician and they found that her blood pressure is 210/110. Patient states that she was taken off amlodipine several months because her blood pressure was well controlled. Patient states that she has been coughing, vomiting, complaining of bilateral pentecostalism pain. Patient states that the pain that she is experiencing at this time is familiar to her, she also has history of migraine headaches and it usually hurts in the same spots, bilateral temples and top of the head. Photophobia and vomiting Related Data Home Medications Medication Instructions Recorded Confirmed albuterol sulfate 2.5 mg/3 mL 1 vial inhalation QID 07/28/20 06/19/22 (0.083 %) solution for nebulization esomeprazole magnesium 40 mg 40 mg PO DAILY 07/28/20 06/19/22 capsule,delayed release montelukast 10 mg tablet 1 tab PO BEDTIME 07/28/20 06/19/22 sodium chloride 7 % for 1 vial inhalation BID 07/28/20 06/19/22 nebulization albuterol sulfate 90 mcg/actuation 2 puff inhalation Q6H PRN 08/01/20 06/19/22 aerosol inhaler (ProAir HFA) Shortness Of Breath cholecalciferol (vitamin D3) 50 50 mcg PO DAILY 08/01/20 06/19/22 mcg (2,000 unit) tablet cyclobenzaprine 10 mg tablet 10 mg PO TID PRN Muscle Spasm 08/01/20 06/19/22 ferrous sulfate 325 mg (65 mg 325 mg PO BID 08/01/20 06/19/22 iron) tablet fluoxetine 40 mg capsule 40 mg PO QAM 08/01/20 06/19/22 fluticasone propionate 50 2 spray intranasal DAILY 08/01/20 06/19/22 mcg/actuation nasal spray,suspension (Flonase Allergy Relief) hydralazine 10 mg tablet 10 mg PO BID 08/01/20 06/19/22 lorazepam 0.5 mg tablet 0.5 mg PO BID 08/01/20 06/19/22 mirtazapine 7.5 mg tablet 7.5 mg PO BEDTIME 08/01/20 06/19/22 pantoprazole 40 mg tablet,delayed 40 mg PO DAILY 08/01/20 06/19/22 release terazosin 1 mg tablet 1 mg PO BEDTIME 08/01/20 06/19/22 aspirin 81 mg capsule 81 mg PO DAILY 06/19/22 06/19/22 atorvastatin 40 mg tablet 1 tab PO DAILY 06/19/22 06/19/22 cetirizine 10 mg tablet 10 mg PO DAILY 06/19/22 06/19/22 fluticasone propionate 115 2 puff inhalation BID 06/19/22 06/19/22 mcg-salmeterol 21 mcg/actuation HFA inhaler (Advair HFA) latanoprost 0.005 % eye drops 1 drp ophthalmic (eye) BEDTIME 06/19/22 06/19/22 topiramate 50 mg capsule,extended 50 mg PO DAILY 06/19/22 06/19/22 release 24 hr Previous Rx's Medication Instructions Recorded amlodipine 5 mg tablet 5 mg PO DAILY 30 days #30 tabs 08/03/20 docusate sodium 100 mg capsule 200 mg PO DAILY 30 days #30 caps 08/03/20 doxycycline monohydrate 100 mg 100 mg PO BID 7 days #14 caps 09/04/20 capsule Allergies Allergy/AdvReac Type Severity Reaction Status Date / Time codeine [Codeine] Allergy Mild RASH Verified 06/19/22 14:09 Sulfa (Sulfonamide Allergy Mild HIVES Verified 06/19/22 14:09 Antibiotics) [Sulfa (Sulfonamides)] ibuprofen [From Motrin] AdvReac Mild STOMACH Verified 06/19/22 14:09 UPSET, Rectal bleeding Review of Systems Review of Systems: Constitutional : No Weight loss, No Fever, No Chills, No Night Sweats, No Fatigue, No Malaise ENT/Mouth : No Hearing loss, No Ear Pain, No Nasal Congestion, No Sinus Pain, No Hoarseness, No sore throat, No Rhinorrhea, No Swallowing Difficulty Eyes: No Eye Pain, No Swelling, No Redness, No Foreign Body, No Discharge, No Vision Changes Cardiovascular : No Chest Pain, No SOB, No Dyspnea on Exertion, No Orthopnea, No Edema, No Palpitations Respiratory : No Cough, No Sputum, No Wheezing, No Smoke Exposure, No Dyspnea Gastrointestinal : Complaining of nausea vomiting No Diarrhea, No Constipation, No abdominal Pain, No Hematochezia, No Melena Genitourinary : no irregular bleeding, No Dysuria, No Urinary Frequency, No Hematuria, No Urinary Incontinence, No Urgency, No Flank Pain, No Urinary Flow Changes, No Hesitancy Musculoskeletal : No joint pain, No Myalgias, No Joint Swelling Skin : No Skin Lesions, No rash Neuro : No Weakness, No Numbness, No Paresthesias, No Loss of Consciousness, No Dizziness, complaining of severe Headache Psych : No Anxiety/Panic, No Depression, No SI/HI/AH/VH, No Social Issues, Heme/Lymph: No Bruising, No Bleeding,No Lymphadenopathy Endocrine : No Polyuria, No Polydipsia, No Temperature Intolerance [facility] Past Medical History Medical History Anemia Anxiety and depression Asthma Back pain Chronic anemia CKD (chronic kidney disease) COPD (chronic obstructive pulmonary disease) GERD (gastroesophageal reflux disease) Hiatal hernia Hyperlipidemia Hypertension Osteoarthritis Surgical History (Updated 06/19/22 @ 14:53 by Teresa Dozier RN) H/O of rectopexy H/O: hysterectomy History of bowel resection History of cholecystectomy History of esophagogastroduodenoscopy (EGD) History of left-sided carotid endarterectomy History of open reduction and internal fixation (ORIF) procedure History of total right hip arthroplasty Hx of breast biopsy Hx of colonoscopy Social History Social History Household Members: Family and Other Housing: Apartment Do you presently have visiting nurse or other home services: Yes (physical therapy) Alcohol intake: unknown Patient Tobacco Use Status: Former Tobacco user Smoked in Last 30 Days: No Second Hand Smoke Exposure: No Use of substances other than those prescribed or required for medical reasons: No Substance Use Type: Marijuana Advance Directives: Yes Advance Directives on File: Yes Advance Directives Date on File: 09/04/20 service: No Current occupational status: retired Physical Exam Vital Signs: Vital Signs: Last Vital Signs Temp 97.5 F 12/09/22 16:07 Pulse 69 12/09/22 16:07 Resp 14 12/09/22 16:07 BP 177/96 H 12/09/22 16:07 Pulse Ox 93 12/09/22 16:07 O2 Del Method 12/09/22 16:07 O2 Flow Rate 2 12/09/22 16:07 BMI result Body Mass Index 15.6 Const: Other: Appearance: Alert. Oriented X3. Seems uncomfortable Eyes: Pupils equal, round and reactive to light. Head: Pain to palpation over the bilateral temples, but also top of the head ENT: Pharynx normal. Neck: Normal inspection. Neck supple. No lymph nodes noted. No crepitus CVS: Normal heart rate and rhythm. Pulses normal. Normal S1 and S2 Respiratory: No respiratory distress. Breath sounds normal. No Wheezing. No rales Abdomen: Soft and nontender. No rigidity. No distention. Skin: Skin warm and dry. Normal skin color. Normal skin turgor. Extremities: No lower extremity edema. No Lacerations. No Rash Neuro: Oriented X 3. No motor deficit. No sensory deficit. Moving all extremities. No slurred speech. CN 2 through 12 grossly intact Psych: calm, cooperative, normal affect Course Course Course Narrative: -patient is receiving p.o. labetalol, IV morphine, Reglan and Benadryl. -EKG, head CT to rule out brain bleed is pending. All the labs are pending. Including ESR and CRP to rule out temporal arteritis Medications Administered Discontinued Medications Generic Name Dose Route Start Last Admin Trade Name Freq PRN Reason Stop Dose Admin Diphenhydramine HCl 25 mg 12/09/22 14:14 12/09/22 15:16 Diphenhydramine Hcl 50 Mg/Ml Vial IVPUSH 12/09/22 14:15 25 mg ONCE ONE Administration Labetalol HCl 100 mg 12/09/22 14:13 12/09/22 15:16 Labetalol Hcl 100 Mg Tablet PO 12/09/22 14:14 100 mg ONCE ONE Administration Protocol Metoclopramide HCl 10 mg 12/09/22 14:23 12/09/22 15:16 Metoclopramide Hcl 10 Mg/2 Ml Vial IVPUSH 12/09/22 14:24 10 mg ONCE ONE Administration Morphine Sulfate 2 mg 12/09/22 14:14 12/09/22 15:16 Morphine Sulfate 2 Mg/Ml Cartridge IVPUSH 12/09/22 14:15 2 mg ONCE ONE Administration Protocol Medical Decision Making Medical Decision Making [facility] Narrative: -patient came in with a blood pressure of 207/108. Patient was given p.o. labetalol, blood pressure dropped to 161/88. -because of the hypertension, is likely the patient had headache and also pulmonary edema -patient's anemia is a bit worse than baseline. Today, hemoglobin 6.7. Patient states that she feels very weak. Patient states she has had blood transfusions in the past, we will go ahead and do a blood transfusion. However, patient has today pulmonary edema, likely secondary to hypertension. The transition will have to be run very slow and Lasix will be given -I discussed with the patient the benefits versus risks of a blood transfusion. Patient states that she is agreeable and will like to proceed with the transfusion. Patient signed a consent -patient's chemistry hemolyzed. Pending. Hospitalist aware, discussed the pt with Dr. Leung, pt being admitted -head CT no acute pathology, chest x-ray atelectasis versus infiltrate. However, patient has no respiratory symptoms or white blood cell count, this is likely atelectasis not infiltrate, antibiotics are not indicated at this time Differential Diagnosis Differential Diagnoses: The differential diagnosis associated with the presentation includes (Subarachnoid hemorrhage, temporal arteritis, migraine headache) Admission/Observation Consideration of admission/observation: Escalation of care including admission/observation considered Consult Healthcare Provider Management of the patient was discussed with: Hospitalist Lab Data [facility] Lab Attestation statement: I reviewed the patient's lab results. 12/09/22 14:25 12/09/22 14:25 Labs: Lab Results 12/09/22 12/09/22 12/09/22 Range/Units 14:25 14:25 14:25 WBC 5.4 (4.8-10.8) X10*3/uL RBC 2.39 L (4.20-5.50) X10*6/uL Hgb 6.7 L* (12.0-16.0) g/dl Hct 21.9 L (37.0-47.0) % MCV 91.6 (80.0-98.0) fL MCH 28.0 (27.0-33.0) pg MCHC 30.6 L (31.0-35.0) g/dl RDW 13.7 (11.0-16.0) % Plt Count 222 (160-400) X10*3/uL MPV 9.3 L (9.4-12.3) fL Immature Gran % (Auto) 0.2 (0.0-0.4) % Neut % (Auto) 52.0 (45-73) % Lymph % (Auto) 34.2 (20-40) % [place] % (Auto) 6.6 (2-11) % Eos % (Auto) 6.3 H (0-4) % Baso % (Auto) 0.7 (0-2) % Lymph # (Auto) 1.9 (1.2-4.9) X10*3/uL [place] # (Auto) 0.4 (0.1-1.2) X10*3/uL Eos # (Auto) 0.3 (0.0-0.4) X10*3/uL Baso # (Auto) 0.0 (0.0-0.2) X10*3/uL Abs Immat Gran (auto) 0.01 (0.00-0.03) X10*3/uL Absolute Neuts (auto) 2.8 (2.0-8.3) x10*3/uL Absolute Nucleated RBC 0.000 (0.0-0.012) X10*3/uL Nucleated RBC % (auto) 0.0 (0.0-0.2) /100WBC ESR 92 H (0-20) MM/HR Troponin I High Sens 37.2 H (<3.5-17.0) ng/L B-Natriuretic Peptide (<100) pg/mL Crossmatch ([facility]) 12/09/22 12/09/22 Range/Units 14:25 16:19 WBC (4.8-10.8) X10*3/uL RBC (4.20-5.50) X10*6/uL Hgb (12.0-16.0) g/dl Hct (37.0-47.0) % MCV (80.0-98.0) fL MCH (27.0-33.0) pg MCHC (31.0-35.0) g/dl RDW (11.0-16.0) % Plt Count (160-400) X10*3/uL MPV (9.4-12.3) fL Immature Gran % (Auto) (0.0-0.4) % Neut % (Auto) (45-73) % Lymph % (Auto) (20-40) % [place] % (Auto) (2-11) % Eos % (Auto) (0-4) % Baso % (Auto) (0-2) % Lymph # (Auto) (1.2-4.9) X10*3/uL [place] # (Auto) (0.1-1.2) X10*3/uL Eos # (Auto) (0.0-0.4) X10*3/uL Baso # (Auto) (0.0-0.2) X10*3/uL Abs Immat Gran (auto) (0.00-0.03) X10*3/uL Absolute Neuts (auto) (2.0-8.3) x10*3/uL Absolute Nucleated RBC (0.0-0.012) X10*3/uL Nucleated RBC % (auto) (0.0-0.2) /100WBC ESR (0-20) MM/HR Troponin I High Sens (<3.5-17.0) ng/L B-Natriuretic Peptide 596 H (<100) pg/mL Crossmatch ([facility]) See Detail Independent Interpretation I performed an independent interpretation of an: EKG (Making interpretation: Sinus rhythm, heart rate 83, PVC every 3rd beat, less than [address] segment depressions in lead V4 V5, no reciprocal changes, QTC 453) and CT Scan (My interpretation head CT: No acute intracranial bleed) Radiology Impression Discussion of test interpretation with radiology: I have reviewed the radiologist's reading. Radiologist Impression: Head CT: There is no intracranial hemorrhage, hematoma, or extra-axial fluid collection. ? Mild generalized atrophy. There is no hydrocephalus, edema, or mass effect.? The chapa-white matter differentiation is similar to prior exams. There is small lacunar infarct again seen right basal ganglia similar to prior studies.? There is no visible acute territorial infarct or mass lesion. The calvarium appears intact. There is no pneumocephalus or orbital emphysema.? There are no air-fluid levels in the visualized sinuses or middle ears or mastoids. ? CT/CT head/brain wo IV con IMPRESSION: No acute intracranial pathology. Chest x-ray: The cardiac and mediastinal contours are stable. There is atelectasis or small and heart left lung base. The lungs are otherwise clear. There is no pleural effusion or pneumothorax. There are degenerative changes of the spine. XR/XR chest 1V IMPRESSION: Atelectasis or small infiltrate at the left lung base. Critical Care Time Critical Care Time Critical Care Time: Yes Total Critical Care Time: 75 Attestation: I have personally provided critical care time. Time includes review of lab data, radiology results, discussion with consultants, and monitoring for potential decompensation. Intervention performed as documented. Discharge Plan Discharge Clinical Impression: Hypertensive urgency, Headache, CHF (congestive heart failure), Anemia Patient Disposition: Admitted As Inpatient
[2022-12-09 14:30] LABS: MANUAL DIFF FLAG NO
[2022-12-09 14:32] LABS: Basophils Percent Auto 0.7 % (0-2); Eosinophils Absolute Auto 0.3 X10*3/uL (0.0-0.4); Eosinophils Percent Auto 6.3 % (0-4); Hematocrit 21.9 % (37.0-47.0); Imm Gran Abs Auto 0.01 X10*3/uL (0.00-0.03); Imm Gran Pct Auto 0.2 % (0.0-0.4); Lymphocytes Absolute Auto 1.9 X10*3/uL (1.2-4.9); Lymphocytes Percent Auto 34.2 % (20-40); Mean Corpuscular HGB Conc 30.6 g/dl (31.0-35.0); Mean Corpuscular Volume 91.6 fL (80.0-98.0); Mean Platelet Volume 9.3 fL (9.4-12.3); Monocytes Absolute Auto 0.4 X10*3/uL (0.1-1.2); Monocytes Percent Auto 6.6 % (2-11); Neutrophils Absolute Auto 2.8 x10*3/uL (2.0-8.3); Platelet Count 222 X10*3/uL (160-400); Red Blood Count 2.39 X10*6/uL (4.20-5.50); Red Cell Distribution Width 13.7 % (11.0-16.0); White Blood Count 5.4 X10*3/uL (4.8-10.8)
[2022-12-09 14:44] LABS: Hemoglobin 6.7 g/dl (12.0-16.0)
[2022-12-09 14:52] LABS: B Type Natriuretic Peptide 596 pg/mL (<100)
[2022-12-09 14:53] LABS: Troponin-I High Sensitivity 37.2 ng/L (<3.5-17.0)
[2022-12-09] MEDS: Morphine Sulfate 2 MG/ML CARTRIDGE IVPUSH ×2 (15:16→22:04)
[2022-12-09] MEDS: Metoclopramide HCl 10 MG/2 ML VIAL IVPUSH (15:16)
[2022-12-09] MEDS: diphenhydrAMINE HCL 50 MG/ML VIAL 25 MG IVPUSH (15:16)
[2022-12-09] MEDS: Labetalol HCL 100 MG TABLET PO (15:16)
[2022-12-09 15:47] LABS: Erythrocyte Sedimentation Rate 92 MM/HR (0-20)
--- NOTE | 2022-12-09 16:03 | PC.NURSE ---
Patient AOx 4 neuros intact LIZARRAGA with purpose. Reports being taken off BP meds by PCP high BP with headache and chest discomfort. PAtient reports relief post medication will CTM
--- NOTE | 2022-12-09 16:21 | PC.NURSE ---
Verified with MD will admin lasix prior to admin of blood
--- NOTE | 2022-12-09 17:03 | PM.IMHP ---
History of Present Illness Date of Service: 12/09/22 Chief Complaint: headache 82-year-old woman presented ER with complaints of headache over the last 24 hours. She reports migraine headache with bilateral temporal pain and pain to the top of the head with photophobia and vomiting. She was found to be hypertensive in the ER with blood pressure as high as 210/110. She reported that she has not taken her blood pressure medication over 2 months as her medications were going to be adjusted and they just were not reordered. She reported she tried calling her primary care provider's office but never got her medications reordered. Denies chest pain, shortness breath, diarrhea, sick contacts, recent travel. Hemoglobin 6.7 with history of severe anemia, 1 unit of PRBCs ordered. Potassium 5.4, creatinine 5.6. In the ER she was given IV Lasix, Reglan, Benadryl, Zofran, morphine, labetalol in a dose of amlodipine. Be admitted for further management and treatment of acute congestive heart failure, hypertensive urgency in FLORECITA. Review of Systems Review of Systems: Denies any recent fever chills or decrease in appetite respiratory denies any shortness of breath coverage production cardiovascular is adjustment of any PND or edema gastrointestinal denies any dysphagia abdominal pain nausea vomiting or diarrhea genitourinary denies any dysuria frequency or hematuria musculoskeletal denies any joint pain or swelling neuropsych denies any weakness or seizures all other systems reviewed are negative [facility] Medical History Anemia Anxiety and depression Asthma Back pain Chronic anemia CKD (chronic kidney disease) COPD (chronic obstructive pulmonary disease) GERD (gastroesophageal reflux disease) Hiatal hernia Hyperlipidemia Hypertension Osteoarthritis Pertinent family history: No cardiac hx Surgical History (Updated 06/19/22 @ 14:53 by Teresa Dozier RN) H/O of rectopexy H/O: hysterectomy History of bowel resection History of cholecystectomy History of esophagogastroduodenoscopy (EGD) History of left-sided carotid endarterectomy History of open reduction and internal fixation (ORIF) procedure History of total right hip arthroplasty Hx of breast biopsy Hx of colonoscopy Social History Household Members: Family and Other Housing: Apartment Do you presently have visiting nurse or other home services: Yes (physical therapy) Alcohol intake: unknown Patient Tobacco Use Status: Former Tobacco user Smoked in Last 30 Days: No Second Hand Smoke Exposure: No Use of substances other than those prescribed or required for medical reasons: No Substance Use Type: Marijuana Advance Directives: Yes Advance Directives on File: Yes Advance Directives Date on File: 09/04/20 service: No Current occupational status: retired Meds Allergies Allergy/AdvReac Type Severity Reaction Status Date / Time codeine [Codeine] Allergy Mild RASH Verified 06/19/22 14:09 Sulfa (Sulfonamide Allergy Mild HIVES Verified 06/19/22 14:09 Antibiotics) [Sulfa (Sulfonamides)] ibuprofen [From Motrin] AdvReac Mild STOMACH Verified 06/19/22 14:09 UPSET, Rectal bleeding Active Medications: Current Medications Acetaminophen (Acetaminophen 325 Mg Tablet) 650 mg PO Q6H PRN PRN Reason: Pain, Mild (Pain Scale 1-3) Amlodipine Besylate (Amlodipine Besylate 5 Mg Tablet) 5 mg PO ONCE ONE; Protocol Stop: 12/09/22 16:58 Furosemide (Furosemide 20 Mg/2 Ml Vial) 20 mg IVPUSH Q12H TONIO; Protocol Heparin Sodium (Porcine) (Heparin Sodium,Porcine 5,000 Unit/Ml Vial) 5,000 unit SUBCUT Q12H TONIO Ondansetron HCl (Ondansetron Hcl 4 Mg/2 Ml Vial) 4 mg IVPUSH Q8H PRN PRN Reason: Nausea and Vomiting Pharmacy Consult (Consult Rx Perform Med Rec) 1 each MISCELLANE ONCE PRN PRN Reason: Consult order Sodium Chloride (0.9 % Sodium Chloride Flush 3 Ml Syringe) [facility] Medications Medication Instructions Recorded Confirmed Last Taken Type albuterol sulfate 2.5 mg/3 mL 1 vial inhalation QID PRN 07/28/20 12/09/22 12/09/22 History (0.083 %) solution for nebulization Shortness Of Breath montelukast 10 mg tablet 10 mg PO BEDTIME 07/28/20 12/09/22 12/09/22 History sodium chloride 7 % for 1 vial inhalation BID 07/28/20 12/09/22 12/09/22 History nebulization albuterol sulfate 90 mcg/actuation 2 puff inhalation Q6H PRN 08/01/20 12/09/2223 History aerosol inhaler (ProAir HFA) Shortness Of Breath cholecalciferol (vitamin D3) 50 50 mcg PO DAILY 08/01/20 12/09/22 12/09/22 History mcg (2,000 unit) tablet cyclobenzaprine 10 mg tablet 10 mg PO TID PRN Muscle Spasm 08/01/20 12/09/22 12/09/22 History ferrous sulfate 325 mg (65 mg 325 mg PO BID 08/01/20 12/09/22 12/09/22 History iron) tablet fluoxetine 40 mg capsule 40 mg PO DAILY 08/01/20 12/09/22 12/09/22 History fluticasone propionate 50 2 spray intranasal DAILY PRN Nasal 08/01/20 12/09/22 12/09/22 History mcg/actuation nasal Congestion spray,suspension (Flonase Allergy Relief) lorazepam 0.5 mg tablet 0.5 mg PO BID 08/01/20 12/09/22 12/09/22 History mirtazapine 7.5 mg tablet 7.5 mg PO BEDTIME 08/01/20 12/09/22 12/09/22 History pantoprazole 40 mg tablet,delayed 40 mg PO DAILY 08/01/20 12/09/22 12/09/22 History release atorvastatin 40 mg tablet 40 mg PO DAILY 06/19/22 12/09/22 12/09/22 History cetirizine 10 mg tablet 10 mg PO DAILY 06/19/22 12/09/22 12/09/22 History fluticasone propionate 115 2 puff inhalation BID 06/19/22 12/09/22 12/09/22 History mcg-salmeterol 21 mcg/actuation HFA inhaler (Advair HFA) latanoprost 0.005 % eye drops 1 drp ophthalmic (eye) BEDTIME 06/19/22 12/09/22 12/09/22 History gyypajekid-yjpdzxrmqmujk-dtxjbnoi 1 tab PO Q12H PRN Headache 12/09/22 12/09/22 Unknown History 50 mg-325 mg-40 mg tablet docusate sodium 100 mg capsule 200 mg PO DAILY PRN Constipation 12/09/22 12/09/22 12/09/22 History lidocaine 5 % topical ointment 1 appl topical TID PRN Knee pain 12/09/22 12/09/22 Unknown History oxycodone-acetaminophen 5 mg-325 1 tab PO Q8H PRN Pain, Moderate 12/09/22 12/09/22 Unknown History mg tablet terazosin 1 mg capsule 1 mg PO DAILY 12/09/22 12/09/22 12/09/22 History Physical Exam Vital Signs and Narrative: Vital Signs: Last Vital Signs Temp 97.5 F 12/09/22 16:07 Pulse 69 12/09/22 16:07 Resp 14 12/09/22 16:07 BP 177/96 H 12/09/22 16:07 Pulse Ox 93 12/09/22 16:07 O2 Del Method 12/09/22 16:07 O2 Flow Rate 2 12/09/22 16:07 BMI result Body Mass Index 15.6 Appearing in no acute distress head is normocephalic atraumatic eyes pupils are PERRLA sclera is anicteric mouth throat mucous membranes are intact and moist neck is supple no lymphadenopathy, no JVD noted lung sounds are clear to auscultation heart regular rate rhythm, clear S1, S2 positive bowel sounds, abdomen is soft, nontender neuro patient is alert x3, no focal deficits Results Labs 12/09/22 14:25 12/09/22 14:25 Labs: Laboratory Results - last 24 hr 12/09/22 12/09/22 12/09/22 14:25 14:25 14:25 MCV 91.6 MCH 28.0 MCHC 30.6 L RDW 13.7 Plt Count 222 MPV 9.3 L Immature Gran % (Auto) 0.2 Neut % (Auto) 52.0 Lymph % (Auto) 34.2 [place] % (Auto) 6.6 Eos % (Auto) 6.3 H Baso % (Auto) 0.7 Lymph # (Auto) 1.9 [place] # (Auto) 0.4 Eos # (Auto) 0.3 Baso # (Auto) 0.0 Abs Immat Gran (auto) 0.01 Absolute Neuts (auto) 2.8 Absolute Nucleated RBC 0.000 Nucleated RBC % (auto) 0.0 ESR 92 H Troponin I High Sens 37.2 H B-Natriuretic Peptide Blood Type Crossmatch ([facility]) 12/09/22 12/09/22 14:25 16:19 MCV MCH MCHC RDW Plt Count MPV Immature Gran % (Auto) Neut % (Auto) Lymph % (Auto) [place] % (Auto) Eos % (Auto) Baso % (Auto) Lymph # (Auto) [place] # (Auto) Eos # (Auto) Baso # (Auto) Abs Immat Gran (auto) Absolute Neuts (auto) Absolute Nucleated RBC Nucleated RBC % (auto) ESR Troponin I High Sens B-Natriuretic Peptide 596 H Blood Type O Positive Crossmatch ([facility]) See Detail Imaging Radiologist's Impressions: Impressions Chest X-Ray 12/09/22 14:52 IMPRESSION: Atelectasis or small infiltrate at the left lung base. Head CT 12/09/22 15:07 IMPRESSION: No acute intracranial pathology. Assessment and Plan (1) CKD (chronic kidney disease) stage 4, GFR 15-29 ml/min: Status: Acute Plan 82-year-old man presenting to the ER with severe headache that started yesterday. Patient reported that she had not been taking her blood pressure medication for over 2 months. Acute congestive heart failure. Unspecified No previous history Echocardiogram ordered Cardiology consultation Monitor on telemetry Daily weights Strict intake and output Severe anemia Patient reports history of anemia in the past 1 unit of PRBCs ordered the ER Check CBC post transfusion and transfuse as necessary Iron profile in the morning occult stool ordered Hypertensive urgency Has not taken blood pressure medications in 2 months Continue Norvasc 5 mg, add hydralazine t.i.d. FLORECITA on CKD stage 4 Likely secondary to fluid overload Renal ultrasound pending Diurese and follow BMP Nephrology consultation pending Hyperkalemia Likely secondary to FLORECITA [facility] Repeat BMP this evening Metabolic acidosis Secondary to renal failure acute Treat heart failure with diuresis Follow bicarb, consider starting bicarb if continues to decrease Headache Likely secondary to hypertensive urgency Treat the blood pressure Pain management for headache COPD Some mild wheezing Treat with scheduled DuoNebs, hold off on steroids for now Hyperlipidemia Continue aspirin and statin GERD Continue PPI Mental health Continue home medications DVT prophylaxis with Lovenox Attending Dr. Leung Full code MED rec pending Patient requires 2 inpatient midnights for treatment of acute congestive heart failure requiring IV diuretics as well as close management of hypertensive urgency Time Spent With Patient Time: Total time managing care of this patient today ____ minutes. Quality Stroke Does the patient have a stroke diagnosis?: No VTE Prior VTE?: No VTE Risk Level:: Medical - moderate - high VTE Device Contraindication: Treatment Not Indicated VTE Drug Contraindication: N/A - Med Ordered
[2022-12-09 17:07] LABS: Alanine Aminotransferase 10 U/L (0-31); Albumin Level 3.6 g/dL (3.5-5.0); Alkaline Phosphatase 124 U/L (39-117); Anion Gap 18 (12-20); Aspartate Amino Transferase 16 U/L (5-31); Bilirubin Direct < 0.2 mg/dL (0.0-0.5); Bilirubin Total 0.4 mg/dL (0.0-1.0); Blood Urea Nitrogen 68 mg/dL (9-16); C Reactive Protein 1.41 mg/dL (< or = 0.50); Calcium 8.2 mg/dL (8.4-10.2); Carbon Dioxide 17 mmol/L (22-29); Chloride 113 mmol/L (96-108); Creatinine Clr Calc Pharmacy 5.4; Estimated Glomerular Filt Rate 7; Glucose Random 77 mg/dL (60-115); Lipase 54 U/L (8-78); Potassium 5.4 mmol/L (3.3-5.1); Sodium 143 mmol/L (135-145); Total Protein 6.8 g/dL (6.5-8.0)
[2022-12-09] MEDS: Furosemide 100 MG/10 ML VIAL 60 MG IVPUSH (17:50)
[2022-12-09] MEDS: Heparin Sodium,Porcine 5,000 UNIT/ML VIAL 5000 UNIT SUBCUT (17:50)
[2022-12-09] MEDS: amLODIPine Besylate 5 MG TABLET PO (17:50)
[2022-12-09] MEDS: Sodium Zirconium Cyclosilicate 10 GM POWD.PACK PO (17:51)
[2022-12-09 18:16] LABS: COVID-19 Test Negative (Negative); IDNOW Serial# BCCEAD1C
--- NOTE | 2022-12-09 18:41 | PHA.MEDREC ---
Pharmacy Consult ? Medication Reconciliation Pharmacy has completed the medication reconciliation. spoke with pt and family member
--- NOTE | 2022-12-09 19:27 | PC.NURSE ---
No crackles noted no respiratory distress report given to Tracie BULL
[2022-12-09] MEDS: Albuterol/Iprat 2.5/0.5MG 3 ML AMPUL.NEB INHALE (19:33)
--- NOTE | 2022-12-09 19:36 | PC.NURSE ---
assumed care of patient at 1930 - report received from Roland BULL. per MD Joy (hospitalist), patient to only receive 1 unit red blood cells, despite the order for 3 units. per day shift RN, patient tolerated transfusion well, no reactions, lung sounds clear. will CTM and update vital signs.
--- NOTE | 2022-12-09 19:40 | PC.NURSE ---
patient receiving scheduled breathing treatment by respiratory. patient cleaned up and linens changed by pct, pt on compliance monitor. in no apparent distress. will continue to monitor
[2022-12-09 20:12] LABS: Hematocrit 27.4 % (37.0-47.0); Hemoglobin 8.6 g/dl (12.0-16.0)
[2022-12-09 20:34] LABS: Anion Gap 17 (12-20); Blood Urea Nitrogen 67 mg/dL (9-16); Calcium 8.1 mg/dL (8.4-10.2); Carbon Dioxide 19 mmol/L (22-29); Chloride 112 mmol/L (96-108); Creatinine Clr Calc Pharmacy 5.5; Estimated Glomerular Filt Rate 7; Glucose Random 78 mg/dL (60-115); Potassium 4.7 mmol/L (3.3-5.1); Sodium 143 mmol/L (135-145)
[2022-12-09] MEDS: hydrALAZINE HCl 10 MG TABLET PO (20:58)
[2022-12-09] MEDS: oxyCODONE HCl Immed Release 5 MG TABLET PO (20:59)
[2022-12-09] MEDS: Nitroglycerin 0.4 MG PATCH.TD24 TRANSDERMA (22:04)
--- NOTE | 2022-12-09 22:12 | PC.NURSE ---
MD Joy made aware of patients high BP and headache. ordered morphine for migraine headache and nitro patch to bring BP down. patient c/o severe pain to head. will CTM.
[2022-12-09] MEDS: 0.9 % Sodium Chloride Flush 3 ML SYRINGE IVFLUSH (23:46)
--- NOTE | 2022-12-09 23:50 | PC.NURSE ---
pt denies sob at this time, bp is gradually going down now at 147/90, headache resolved
[2022-12-10] VITALS (18 sets, daily range): BP systolic 119–210; BP diastolic 65–106; PULSE 68–91; RESP 12–22; TEMP 36.4–37.4; O2SAT 92–96; BMI 16.7
--- NOTE | 2022-12-10 01:47 | PC.NURSE ---
3 units of blood ordered by Ben Boston MD; 1 unit of blood infused prior to this nurse taking assignment; pt's hgb from 6.7 on 12/09 at 1425 to 8.6 on 12/09 at 1957; [place] Text DR Joy to question units of blood to be infused; per Dr Joy he will discontinue the other two units of blood
[2022-12-10 05:42] LABS: MANUAL DIFF FLAG NO
[2022-12-10 05:47] LABS: Basophils Percent Auto 0.5 % (0-2); Eosinophils Absolute Auto 0.3 X10*3/uL (0.0-0.4); Eosinophils Percent Auto 4.5 % (0-4); Hematocrit 26.7 % (37.0-47.0); Hemoglobin 8.4 g/dl (12.0-16.0); Imm Gran Abs Auto 0.03 X10*3/uL (0.00-0.03); Imm Gran Pct Auto 0.4 % (0.0-0.4); Lymphocytes Absolute Auto 1.3 X10*3/uL (1.2-4.9); Lymphocytes Percent Auto 18.3 % (20-40); Mean Corpuscular HGB Conc 31.5 g/dl (31.0-35.0); Mean Corpuscular Hemoglobin 29.3 pg (27.0-33.0); Mean Platelet Volume 10.5 fL (9.4-12.3); Monocytes Absolute Auto 0.4 X10*3/uL (0.1-1.2); Monocytes Percent Auto 4.9 % (2-11); Neutrophils Absolute Auto 5.2 x10*3/uL (2.0-8.3); Neutrophils Percent Auto 71.4 % (45-73); Platelet Count 214 X10*3/uL (160-400); Red Blood Count 2.87 X10*6/uL (4.20-5.50); Red Cell Distribution Width 14.1 % (11.0-16.0); White Blood Count 7.3 X10*3/uL (4.8-10.8)
[2022-12-10] MEDS: Heparin Sodium,Porcine 5,000 UNIT/ML VIAL 5000 UNIT SUBCUT ×2 (05:52→19:32)
[2022-12-10 06:06] LABS: Anion Gap 21 (12-20); Blood Urea Nitrogen 69 mg/dL (9-16); Calcium 8.3 mg/dL (8.4-10.2); Carbon Dioxide 15 mmol/L (22-29); Chloride 113 mmol/L (96-108); Glucose Random 81 mg/dL (60-115); Iron 98 mcg/dL (30-160); Percent Iron Saturation 44 % (15-50); Potassium 5.2 mmol/L (3.3-5.1); Sodium 144 mmol/L (135-145); Total Iron Binding Capacity 224 mcg/dL (228-428); Unsaturated Iron Binding 126 ug/dL
[2022-12-10 06:07] LABS: Creatinine Clr Calc Pharmacy 5.5; Estimated Glomerular Filt Rate 7
--- NOTE | 2022-12-10 06:07 | PC.NURSE ---
pt vomited about 25 mL; denies any pain at this time; BP elevated 197/98; Dr Joy notified via [employer] Text
[2022-12-10 06:11] LABS: B Type Natriuretic Peptide 502 pg/mL (<100)
[2022-12-10] MEDS: Labetalol HCL 100 MG/20 ML VIAL 10 MG IVPUSH (06:25)
--- NOTE | 2022-12-10 07:00 | CA_ITS ---
Transthoracic Echocardiogram Patient (Last, First, Middle): Cristina Figueroa, Gender: Female Date of : 1940 Age: 82 Procedure Date: 12/10/2022 Procedure Type: Transthoracic Echocardiogram [place] [facility] [place] Height: 170.18 cm Weight: 45.36 kg BSA: 1.51 m2 Heart Rate: bpm BP: 137 / 65 mmHg Carding Doubler: ALLISON Referring MD: Neema Zurita NP Symptoms: chf Study Quality: Adequate Conclusions: - Normal left ventricular size and systolic function. There is mildly increased left ventricular wall thickness. The visually estimated ejection fraction is between 60-65%. - Diastolic function is normal for age. - There is severe septal asymmetric hypertrophy. - Normal right ventricular cavity size and systolic function. - There is mild dilatation of the sinuses of Valsalva measuring 3.77 cm. Findings Left Ventricle Normal left ventricular size and systolic function. There is mildly increased left ventricular wall thickness. The visually estimated ejection fraction is between 60-65%. There is no evidence of regional wall motion abnormalities. Diastolic function is normal for age. There is severe septal asymmetric hypertrophy. Global longitudinal strain reduced at -16%. Right Ventricle Normal right ventricular cavity size and systolic function. Atria The left atrium is likely dilated. The right atrium is likely dilated. Aortic Valve There is a normal trileaflet aortic valve. There is mild thickening of the aortic valve. There is no aortic valve stenosis. There is no aortic valve regurgitation. Mitral Valve The mitral valve appears normal. There is no mitral valve regurgitation. There is no mitral valve stenosis. Pulmonic Valve The pulmonic valve was not well visualized. Tricuspid Valve Normal tricuspid valve structure and function. There is trace tricuspid valve regurgitation. Normal right atrial pressure. There is no evidence of pulmonary hypertension. Great Vessels The pulmonary artery was not well visualized. There is mild dilatation of the sinuses of Valsalva measuring 3.77 cm. Venous The inferior vena cava is normal in size and collapses greater than 50% with inspiration. Pericardium/Pleural There is no evidence of pericardial effusion. Prior Study Comparison No prior study available for comparison. Measurements 2D Linear Measurements IVSd: 1.00 0.6-0.9/0.6-1.0 cm LVIDd: 4.50 3.9-5.3/4.2-5.9 cm LVIDd Index: 2.98 2.4-3.2/2.2-3.1 cm/m2 LVIDs: 2.55 2.0-3.6 cm LVPWd: 1.05 0.7-1.1 cm LA Diam: 2.90 2.7-3.8/3.0-4.0 cm LAIDs Index: 1.92 1.5-2.3 cm/m2 LV Mass: 197.48 67-162/88-224 g LV Mass Index: 130.78 43-95/49-115 g/m2 LVOT Diam: 1.90 3.0+(-)1.3 cm 2D Systolic Function EF 4C: 65.50 >55% EF 2C: 64.70 >55% EF BiP: 65.00 >55% Mitral Valve MV Pk E: 0.70 MV PK A: 1.13 MV Decel Time: 222.00 E/A: 0.60 E'Lateral: 7.07 E'Medial: 5.00 E/E' Med: 13.90 E/E' Lat: 9.80 PHT: 65.00 MVA PHT: 3.38 Decel [place]: 3.13 Aortic Valve AoV Pk Wei: 1.32 AoV Mn Wei: 0.88 AoV VTI: 0.27 AoV Pk Grad: 7.00 Aov Mn Grad: 4.00 JOSE D Cont.VTI: 3.14 LVOT LVOT Pk Wei: 1.29 LVOT Mn Wei: 0.88 LVOT VTI: 0.30 LVOT Pk Grad: 7.00 LVOT Mn Grad: 4.00 LVOT Diam: 1.90 LVOT Area: 2.84 Diastolic Function MV Pk E: 0.70 MV Pk A: 1.13 E/A: 0.60 E'Medial: 5.00 E/E' Med: 13.90 E' Laterial: 7.07 E/E' Lat: 9.80 Right Ventricle TAPSE (mm): 20.30 TVS' Wei: 13.70 Tricuspid Valve TR Pk Wei: 2.25 TR Pk Grad: 20.00 RA Press: 3.00 RVSP: 23.00 Great Vessels Aorta Sinus of Valsalva: 3.77 2.0-3.5 cm Ao Asc: 2.80 2.1-3.4 cm Updated in Other Vendor System with Status of Final Davis Dang MD electronically signed on 12/10/2022 4:25:04 PM with status of Final
[2022-12-10] MEDS: Albuterol/Iprat 2.5/0.5MG 3 ML AMPUL.NEB INHALE ×4 (07:52→20:30)
--- NOTE | 2022-12-10 08:18 | PM.CNNEP ---
History of Present Illness Reason for Consult Consult date: 12/10/22 Chief Complaint Chief complaint: CHF History of Present Illness Narrative: 82 year old patient with history of severe CKD admitted with CHF exacerbation, hypertensive urgency found to have worsening kidney function.She reports migraine headache with bilateral temporal pain and pain to the top of the head with photophobia and vomiting.?Blood pressure was found to be greater than 200 systolic. At the time of the consultation, she denies fever, chills, chest pain, shortness of breath, nausea, vomiting or diarrhea. Review of Systems Review of Systems 10 points ROS negative except for pertinent in HPI PMFSH Past Medical History Medical History Anemia Anxiety and depression Asthma Back pain Chronic anemia CKD (chronic kidney disease) COPD (chronic obstructive pulmonary disease) GERD (gastroesophageal reflux disease) Hiatal hernia Hyperlipidemia Hypertension Osteoarthritis Surgical History Surgical History (Updated 06/19/22 @ 14:53 by Teresa Dozier RN) H/O of rectopexy H/O: hysterectomy History of bowel resection History of cholecystectomy History of esophagogastroduodenoscopy (EGD) History of left-sided carotid endarterectomy History of open reduction and internal fixation (ORIF) procedure History of total right hip arthroplasty Hx of breast biopsy Hx of colonoscopy Social History Social History Household Members: Family and Other Housing: Apartment Do you presently have visiting nurse or other home services: Yes (physical therapy) Alcohol intake: unknown Patient Tobacco Use Status: Former Tobacco user Smoked in Last 30 Days: No Second Hand Smoke Exposure: No Use of substances other than those prescribed or required for medical reasons: No Substance Use Type: Marijuana Advance Directives: Yes Advance Directives on File: Yes Advance Directives Date on File: 09/04/20 service: No Current occupational status: retired Meds Allergies Allergy/AdvReac Type Severity Reaction Status Date / Time codeine [Codeine] Allergy Mild RASH Verified 06/19/22 14:09 Sulfa (Sulfonamide Allergy Mild HIVES Verified 06/19/22 14:09 Antibiotics) [Sulfa (Sulfonamides)] ibuprofen [From Motrin] AdvReac Mild STOMACH Verified 06/19/22 14:09 UPSET, Rectal bleeding Active Medications: Current Medications Acetaminophen (Acetaminophen 325 Mg Tablet) 650 mg PO Q6H PRN PRN Reason: Pain, Mild (Pain Scale 1-3) Albuterol/Ipratropium (Albuterol/Iprat 2.5/0.5mg 3 Ml Ampul.Neb) 3 ml INHALE RQ4H WHILE AWAKE [facility] Last Admin: 12/10/22 07:52 Dose: 3 ml Furosemide (Furosemide 20 Mg/2 Ml Vial) 20 mg IVPUSH Q12H [facility]; Protocol Heparin Sodium (Porcine) (Heparin Sodium,Porcine 5,000 Unit/Ml Vial) 5,000 unit SUBCUT Q12H [facility] Last Admin: 12/10/22 05:52 Dose: 5,000 unit Hydralazine HCl (Hydralazine Hcl 10 Mg Tablet) 10 mg PO TID [facility]; Protocol Last Admin: 12/09/22 20:58 Dose: 10 mg Ondansetron HCl (Ondansetron Hcl 4 Mg/2 Ml Vial) 4 mg IVPUSH Q8H PRN PRN Reason: Nausea and Vomiting Oxycodone HCl (Oxycodone Hcl Immed Release 5 Mg Tablet) 5 mg PO Q4H PRN PRN Reason: headache Last Admin: 12/09/22 20:59 Dose: 5 mg Pharmacy Consult (Consult Rx Perform Med Rec) 1 each MISCELLANE ONCE PRN PRN Reason: Consult order Sodium Chloride (0.9 % Sodium Chloride Flush 3 Ml Syringe) 3 ml IVFLUSH QSHIFT [facility] Last Admin: 12/09/22 23:46 Dose: 3 ml Sodium Zirconium Cyclosilicate (Sodium Zirconium Cyclosilicate 10 Gm Powd.Pack) 10 gm PO ONCE ONE Stop: 12/10/22 07:59 Home Medications Medication Instructions Recorded Confirmed Last Taken Type albuterol sulfate 2.5 mg/3 mL 1 vial inhalation QID PRN 07/28/20 12/09/22 12/09/22 History (0.083 %) solution for nebulization Shortness Of Breath montelukast 10 mg tablet 10 mg PO BEDTIME 07/28/20 12/09/22 12/09/22 History sodium chloride 7 % for 1 vial inhalation BID 07/28/20 12/09/22 12/09/22 History nebulization albuterol sulfate 90 mcg/actuation 2 puff inhalation Q6H PRN 08/01/20 12/09/2223 History aerosol inhaler (ProAir HFA) Shortness Of Breath cholecalciferol (vitamin D3) 50 50 mcg PO DAILY 08/01/20 12/09/22 12/09/22 History mcg (2,000 unit) tablet cyclobenzaprine 10 mg tablet 10 mg PO TID PRN Muscle Spasm 08/01/20 12/09/22 12/09/22 History ferrous sulfate 325 mg (65 mg 325 mg PO BID 08/01/20 12/09/22 12/09/22 History iron) tablet fluoxetine 40 mg capsule 40 mg PO DAILY 08/01/20 12/09/22 12/09/22 History fluticasone propionate 50 2 spray intranasal DAILY PRN Nasal 08/01/20 12/09/22 12/09/22 History mcg/actuation nasal Congestion spray,suspension (Flonase Allergy Relief) lorazepam 0.5 mg tablet 0.5 mg PO BID 08/01/20 12/09/22 12/09/22 History mirtazapine 7.5 mg tablet 7.5 mg PO BEDTIME 08/01/20 12/09/22 12/09/22 History pantoprazole 40 mg tablet,delayed 40 mg PO DAILY 08/01/20 12/09/22 12/09/22 History release atorvastatin 40 mg tablet 40 mg PO DAILY 06/19/22 12/09/22 12/09/22 History cetirizine 10 mg tablet 10 mg PO DAILY 06/19/22 12/09/22 12/09/22 History fluticasone propionate 115 2 puff inhalation BID 06/19/22 12/09/22 12/09/22 History mcg-salmeterol 21 mcg/actuation HFA inhaler (Advair HFA) latanoprost 0.005 % eye drops 1 drp ophthalmic (eye) BEDTIME 06/19/22 12/09/22 12/09/22 History gosweknuiu-oofdunfhyzpgp-aueezlge 1 tab PO Q12H PRN Headache 12/09/22 12/09/22 Unknown History 50 mg-325 mg-40 mg tablet docusate sodium 100 mg capsule 200 mg PO DAILY PRN Constipation 12/09/22 12/09/22 12/09/22 History lidocaine 5 % topical ointment 1 appl topical TID PRN Knee pain 12/09/22 12/09/22 Unknown History oxycodone-acetaminophen 5 mg-325 1 tab PO Q8H PRN Pain, Moderate 12/09/22 12/09/22 Unknown History mg tablet terazosin 1 mg capsule 1 mg PO DAILY 12/09/22 12/09/22 12/09/22 History Physical Exam Vital Signs: Last Vital Signs Temp 98.0 F 12/10/22 07:17 Pulse 77 12/10/22 07:54 Resp 15 12/10/22 07:54 BP 175/85 H 12/10/22 07:17 Pulse Ox 96 12/10/22 07:17 O2 Del Method 12/10/22 07:17 O2 Flow Rate 2 12/10/22 07:17 BMI result Body Mass Index 16.7 Const General: comfortable and no acute distress HEENT Head: Yes normocephalic and Yes atraumatic Neck Neck: Yes supple Resp Auscultation: diminished lung sounds Cardio Heart sounds: S1 normal heart sound present and S2 normal heart sound present GI Palpation (GI): Soft to palpation and nontender Extrem General: Yes normal to inspection Results Lab Results 12/10/22 05:23 12/10/22 05:23 Lab results: Chemistry 12/09/22 12/09/22 12/10/22 14:25 19:57 05:23 Sodium 143 143 144 Potassium 5.4 H D 4.7 5.2 H Carbon Dioxide 17 L 19 L 15 L BUN 68 H 67 H 69 H Creatinine 5.64 H* 5.52 H* 5.49 H* Calcium 8.2 L 8.1 L 8.3 L Hematology 12/09/22 12/09/22 12/10/22 14:25 19:57 05:23 WBC 5.4 7.3 Hgb 6.7 L* 8.6 L D 8.4 L Plt Count 222 214 Assessment and Plan (1) FLORECITA (acute kidney injury): Status: Acute (2) Hyperkalemia: Status: Acute (3) Metabolic acidosis: Status: Acute (4) CHF (congestive heart failure): Status: Acute (5) Anemia: Status: Acute (6) CKD (chronic kidney disease) stage 4, GFR 15-29 ml/min: Status: Acute Plan multifactorial: -acute hypertensive nephrosclerosis -renal hypoperfusion in the setting of CHF decompensation other less likely CHF with unknown LV function 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 Procedures Date of Service Date of Service: 12/10/22
--- NOTE | 2022-12-10 08:38 | PC.NURSE ---
rn to rn report given to aurea, pt aware of plan of care.
--- NOTE | 2022-12-10 08:55 | MHC.CM.PN ---
PT REPORTS SHE LIVES AT HOME WITH HER DAUGHTER AND IS INDEPENDENT WITH SELF CARE SHE REPORTS SHE HAS A SERVICES MGR THAT COMES TO COMPLETE [employer] ONLY SHE HAS A CANE AND A WALKER AND USES BOTH DEPENDING ON HOW SHE IS FEELING AND WHERE SHE IS GOING SHE HAS A HCP AND MOLST ON FILE SHE IS COVID [place] PCP: FRANCISCO PIERRE. IMM DELIVERED, COPY SENT TO [facility] CURRENT DC PLAN IS HOME WITH RESUMPTION OF SERVICES MGR SERVICES DAUGHTER TO TRANSPORT
[2022-12-10] MEDS: Acetaminophen 325 MG TABLET 650 MG PO ×2 (08:56→16:19)
[2022-12-10] MEDS: Furosemide 20 MG/2 ML VIAL IVPUSH ×2 (08:57→21:29)
[2022-12-10] MEDS: Sodium Zirconium Cyclosilicate 10 GM POWD.PACK PO (08:57)
[2022-12-10] MEDS: 0.9 % Sodium Chloride Flush 3 ML SYRINGE IVFLUSH ×2 (08:57→16:32)
[2022-12-10] MEDS: oxyCODONE HCl Immed Release 5 MG TABLET PO ×2 (08:57→16:19)
[2022-12-10] MEDS: hydrALAZINE HCl 10 MG TABLET PO ×2 (08:58→16:20)
--- NOTE | 2022-12-10 09:09 | PC.NURSE ---
pt is a/o x 3 no sob/harsh noted lungs - slightly diminished. speaks in full sentences. heart sounds - regular. abd soft ad non-tender bx + x 4 quads. no edema noted. pt aware of plan of care.
[2022-12-10] MEDS: ondansetron HCL 4 MG/2 ML VIAL IVPUSH ×2 (09:38→16:18)
--- NOTE | 2022-12-10 09:46 | HO.PM.IMPN ---
Subjective Subjective Date of Service: 12/10/22 Review of Systems Follow-up CHF, FLORECITA Still feeling nauseous, episodes of headache present Denies chest pain, shortness breath Physical Exam Vital Signs: Vital Signs: Last Vital Signs Temp 98.1 F 12/10/22 09:43 Pulse 74 12/10/22 09:43 Resp 18 12/10/22 09:43 BP 210/106 H 12/10/22 09:43 Pulse Ox 94 12/10/22 09:43 O2 Del Method 12/10/22 09:43 O2 Flow Rate 2 12/10/22 07:17 BMI result Body Mass Index 16.7 Appearing in no acute distress lung sounds mild expiratory wheezing heart regular rate rhythm, clear S1, S2, mild JVD positive bowel sounds, abdomen is soft, nontender neuro patient is alert x3, no focal deficits Objective Data Active Medications Acetaminophen (Acetaminophen 325 Mg Tablet) 650 mg PO Q6H PRN PRN Reason: Pain, Mild (Pain Scale 1-3) Last Admin: 12/10/22 08:56 Dose: 650 mg Documented By: NICOLA Albuterol/Ipratropium (Albuterol/Iprat 2.5/0.5mg 3 Ml Ampul.Neb) 3 ml INHALE RQ4H WHILE AWAKE [facility] Last Admin: 12/10/22 07:52 Dose: 3 ml Documented By: GERALDO Furosemide (Furosemide 20 Mg/2 Ml Vial) 20 mg IVPUSH Q12H TONIO; Protocol Last Admin: 12/10/22 08:57 Dose: 20 mg Documented By: NICOLA Heparin Sodium (Porcine) (Heparin Sodium,Porcine 5,000 Unit/Ml Vial) 5,000 unit SUBCUT Q12H TONIO Last Admin: 12/10/22 05:52 Dose: 5,000 unit Documented By: MARTY Hydralazine HCl (Hydralazine Hcl 10 Mg Tablet) 10 mg PO TID [facility]; Protocol Last Admin: 12/10/22 08:58 Dose: 10 mg Documented By: NICOLA Morphine Sulfate (Morphine Sulfate 2 Mg/Ml Cartridge) 2 mg IVPUSH Q4H PRN; Protocol PRN Reason: Pain, Moderate (Pain Scale 4-6 Ondansetron HCl (Ondansetron Hcl 4 Mg/2 Ml Vial) 4 mg IVPUSH Q6H PRN PRN Reason: Nausea and Vomiting Oxycodone HCl (Oxycodone Hcl Immed Release 5 Mg Tablet) 5 mg PO Q4H PRN PRN Reason: headache Last Admin: 12/10/22 08:57 Dose: 5 mg Documented By: NICOLA Pharmacy Consult (Consult Rx Perform Med Rec) 1 each MISCELLANE ONCE PRN PRN Reason: Consult order Sodium Chloride (0.9 % Sodium Chloride Flush 3 Ml Syringe) 3 ml IVFLUSH QSHIFT [facility] Last Admin: 12/10/22 08:57 Dose: 3 ml Documented By: NICOLA Labs 12/10/22 05:23 12/10/22 05:23 Labs: Laboratory Results - last 24 hr 12/09/22 12/09/22 12/09/22 14:25 14:25 14:25 MCV 91.6 MCH 28.0 MCHC 30.6 L RDW 13.7 Plt Count 222 MPV 9.3 L Immature Gran % (Auto) 0.2 Neut % (Auto) 52.0 Lymph % (Auto) 34.2 [place] % (Auto) 6.6 Eos % (Auto) 6.3 H Baso % (Auto) 0.7 Lymph # (Auto) 1.9 [place] # (Auto) 0.4 Eos # (Auto) 0.3 Baso # (Auto) 0.0 Abs Immat Gran (auto) 0.01 Absolute Neuts (auto) 2.8 Absolute Nucleated RBC 0.000 Nucleated RBC % (auto) 0.0 ESR 92 H Anion Gap 18 Estim Creat Clear Calc 5.4 Estimated GFR 7 Random Glucose 77 Calcium 8.2 L Iron TIBC % Saturation Unsat Iron Binding Total Bilirubin 0.4 Direct Bilirubin < 0.2 AST 16 ALT 10 Alkaline Phosphatase 124 H Troponin I High Sens C-Reactive Protein 1.41 H B-Natriuretic Peptide Total Protein 6.8 Albumin 3.6 Lipase 54 COVID-19 (MARIANA) COVID-19 Clin Com Blood Type Antibody Screen Crossmatch ([facility]) 12/09/22 12/09/22 12/09/22 14:25 14:25 16:19 MCV MCH MCHC RDW Plt Count MPV Immature Gran % (Auto) Neut % (Auto) Lymph % (Auto) [place] % (Auto) Eos % (Auto) Baso % (Auto) Lymph # (Auto) [place] # (Auto) Eos # (Auto) Baso # (Auto) Abs Immat Gran (auto) Absolute Neuts (auto) Absolute Nucleated RBC Nucleated RBC % (auto) ESR Anion Gap Estim Creat Clear Calc Estimated GFR Random Glucose Calcium Iron TIBC % Saturation Unsat Iron Binding Total Bilirubin Direct Bilirubin AST ALT Alkaline Phosphatase Troponin I High Sens 37.2 H C-Reactive Protein B-Natriuretic Peptide 596 H Total Protein Albumin Lipase COVID-19 (MARIANA) COVID-19 Clin Com Blood Type O Positive Antibody Screen NEGATIVE Crossmatch ([facility]) See Detail 12/09/22 12/09/22 12/10/22 17:54 19:57 05:23 MCV 93.0 MCH 29.3 MCHC 31.5 RDW 14.1 Plt Count 214 MPV 10.5 Immature Gran % (Auto) 0.4 Neut % (Auto) 71.4 Lymph % (Auto) 18.3 L [place] % (Auto) 4.9 Eos % (Auto) 4.5 H Baso % (Auto) 0.5 Lymph # (Auto) 1.3 [place] # (Auto) 0.4 Eos # (Auto) 0.3 Baso # (Auto) 0.0 Abs Immat Gran (auto) 0.03 Absolute Neuts (auto) 5.2 Absolute Nucleated RBC 0.000 Nucleated RBC % (auto) 0.0 ESR Anion Gap 17 Estim Creat Clear Calc 5.5 Estimated GFR 7 Random Glucose 78 Calcium 8.1 L Iron TIBC % Saturation Unsat Iron Binding Total Bilirubin Direct Bilirubin AST ALT Alkaline Phosphatase Troponin I High Sens C-Reactive Protein B-Natriuretic Peptide Total Protein Albumin Lipase COVID-19 (MARIANA) Negative COVID-19 Clin Com See Note Blood Type Antibody Screen Crossmatch ([facility]) 12/10/22 12/10/22 12/10/22 05:23 05:23 05:23 MCV MCH MCHC RDW Plt Count MPV Immature Gran % (Auto) Neut % (Auto) Lymph % (Auto) [place] % (Auto) Eos % (Auto) Baso % (Auto) Lymph # (Auto) [place] # (Auto) Eos # (Auto) Baso # (Auto) Abs Immat Gran (auto) Absolute Neuts (auto) Absolute Nucleated RBC Nucleated RBC % (auto) ESR Anion Gap 21 H Estim Creat Clear Calc 5.5 Estimated GFR 7 Random Glucose 81 Calcium 8.3 L Iron 98 TIBC 224 L % Saturation 44 Unsat Iron Binding 126 Total Bilirubin Direct Bilirubin AST ALT Alkaline Phosphatase Troponin I High Sens C-Reactive Protein B-Natriuretic Peptide 502 H Total Protein Albumin Lipase COVID-19 (MARIANA) COVID-19 Clin Com Blood Type Antibody Screen Crossmatch ([facility]) Assessment and Plan (1) CHF (congestive heart failure): Status: Acute Plan 82-year-old man presenting to the ER with severe headache that started yesterday.? Patient reported that she had not been taking her blood pressure medication for over 2 months.? Acute congestive heart failure.? Unspecified No previous history Echocardiogram ordered Cardiology consultation Monitor on telemetry Daily weights Strict intake and output Severe anemia. H&H better this morning Patient reports history of anemia in the past 1 unit of PRBCs ordered the ER Check CBC post transfusion and transfuse as necessary Iron profile normal occult stool ordered and pending Hypertensive urgency Better overnight by high this morning Has not taken blood pressure medications in 2 months Continue Norvasc 5 mg, add hydralazine t.i.d. Ordered 1 dose of IV hydralazine FLORECITA on CKD stage 4 Likely secondary to fluid overload Renal ultrasound without obstruction Diurese and follow BMP Nephrology consultation recommend continue diuresis for today Will add sodium bicarb 650 b.i.d. Hyperkalemia Lik[facility] BMP this evening Metabolic acidosis Secondary to renal failure acute Treat heart failure with diuresis Sodium bicarb 650 b.i.d. Headache Likely secondary to hypertensive urgency Treat the blood pressure Pain management for headache COPD Some mild wheezing Treat with scheduled DuoNebs, hold off on steroids for now Hyperlipidemia Continue aspirin and statin GERD Continue PPI Mental health Continue home medications DVT prophylaxis with Lovenox Attending Dr. Plata Full code Continue hospitalization for treatment of acute congestive heart failure requiring IV diuretics as well as close management of hypertensive urgency Time Spent With Patient Time: Total time managing care of this patient today ____ minutes. Quality Stroke Does the patient have a stroke diagnosis?: No VTE Prior VTE?: No VTE Risk Level:: Medical - moderate - high VTE Device Contraindication: Treatment Not Indicated VTE Drug Contraindication: N/A - Med Ordered
[2022-12-10] MEDS: Morphine Sulfate 2 MG/ML CARTRIDGE IVPUSH ×2 (09:55→14:03)
[2022-12-10] MEDS: hydrALAZINE HCl 20 MG/ML VIAL 10 MG IVPUSH (09:57)
[2022-12-10] MEDS: Sodium Bicarbonate 650 MG TABLET PO ×2 (11:47→21:29)
--- NOTE | 2022-12-10 16:13 | PM.CNCAR ---
History of Present Illness History of Present Illness Date of Service: 12/10/22 Requesting physician: Neema Zurita Chief complaint: ?CHF Narrative: 82-year-old female who we have been asked to comment for congestive heart failure. She has background history of chronic kidney disease with significant deterioration at this stage she has advanced CKD. She is presenting with shortness of breath and headache. She was mainly complaining of a migraine when she presented but was also noted to be short of breath and blood workup showed significant anemia and advanced kidney issues. She has been transfused and is feeling better. Denying any significant chest discomfort currently. She is saying her breathing is better since she received some blood. Her workup appears to be pointing to word anemia of chronic disease right now. [facility] Past Medical History Medical History Anemia Anxiety and depression Asthma Back pain Chronic anemia CKD (chronic kidney disease) COPD (chronic obstructive pulmonary disease) GERD (gastroesophageal reflux disease) Hiatal hernia Hyperlipidemia Hypertension Osteoarthritis Surgical History Surgical History (Updated 06/19/22 @ 14:53 by Teresa Dozier RN) H/O of rectopexy H/O: hysterectomy History of bowel resection History of cholecystectomy History of esophagogastroduodenoscopy (EGD) History of left-sided carotid endarterectomy History of open reduction and internal fixation (ORIF) procedure History of total right hip arthroplasty Hx of breast biopsy Hx of colonoscopy Social History Social History Household Members: Family and Other Housing: Apartment Do you presently have visiting nurse or other home services: Yes (physical therapy) Alcohol intake: unknown Patient Tobacco Use Status: Former Tobacco user Smoked in Last 30 Days: No Second Hand Smoke Exposure: No Use of substances other than those prescribed or required for medical reasons: No Substance Use Type: Marijuana Advance Directives: Yes Advance Directives on File: Yes Advance Directives Date on File: 09/04/20 service: No Current occupational status: retired Meds Allergies Allergy/AdvReac Type Severity Reaction Status Date / Time codeine [Codeine] Allergy Mild RASH Verified 06/19/22 14:09 Sulfa (Sulfonamide Allergy Mild HIVES Verified 06/19/22 14:09 Antibiotics) [Sulfa (Sulfonamides)] ibuprofen [From Motrin] AdvReac Mild STOMACH Verified 06/19/22 14:09 UPSET, Rectal bleeding Active Medications: Current Medications Acetaminophen (Acetaminophen 325 Mg Tablet) 650 mg PO Q6H PRN PRN Reason: Pain, Mild (Pain Scale 1-3) Last Admin: 12/10/22 08:56 Dose: 650 mg Albuterol/Ipratropium (Albuterol/Iprat 2.5/0.5mg 3 Ml Ampul.Neb) 3 ml INHALE RQ4H WHILE AWAKE ON LICENSE OF [facility] Last Admin: 12/10/22 15:47 Dose: 3 ml Furosemide (Furosemide 20 Mg/2 Ml Vial) 20 mg IVPUSH Q12H ON LICENSE OF [facility]; Protocol Last Admin: 12/10/22 08:57 Dose: 20 mg Heparin Sodium (Porcine) (Heparin Sodium,Porcine 5,000 Unit/Ml Vial) 5,000 unit SUBCUT Q12H ON LICENSE OF [facility] Last Admin: 12/10/22 05:52 Dose: 5,000 unit Hydralazine HCl (Hydralazine Hcl 10 Mg Tablet) 10 mg PO TID ON LICENSE OF [facility]; Protocol Last Admin: 12/10/22 08:58 Dose: 10 mg Morphine Sulfate (Morphine Sulfate 2 Mg/Ml Cartridge) 2 mg IVPUSH Q4H PRN; Protocol PRN Reason: Pain, Moderate (Pain Scale 4-6 Last Admin: 12/10/22 14:03 Dose: 2 mg Ondansetron HCl (Ondansetron Hcl 4 Mg/2 Ml Vial) 4 mg IVPUSH Q6H PRN PRN Reason: Nausea and Vomiting Oxycodone HCl (Oxycodone Hcl Immed Release 5 Mg Tablet) 5 mg PO Q4H PRN PRN Reason: headache Last Admin: 12/10/22 08:57 Dose: 5 mg Pharmacy Consult (Consult Rx Perform Med Rec) 1 each MISCELLANE ONCE PRN PRN Reason: Consult order Sodium Bicarbonate (Sodium Bicarbonate 650 Mg Tablet) 650 mg PO BID ON LICENSE OF [facility] Last Admin: 12/10/22 11:47 Dose: 650 mg Sodium Chloride (0.9 % Sodium Chloride Flush 3 Ml Syringe) 3 ml IVFLUSH QSHIFT ON LICENSE OF [facility] Last Admin: 12/10/22 08:57 Dose: 3 ml Home Medications Medication Instructions Recorded Confirmed Last Taken Type albuterol sulfate 2.5 mg/3 mL 1 vial inhalation QID PRN 07/28/20 12/09/22 12/09/22 History (0.083 %) solution for nebulization Shortness Of Breath montelukast 10 mg tablet 10 mg PO BEDTIME 07/28/20 12/09/22 12/09/22 History sodium chloride 7 % for 1 vial inhalation BID 07/28/20 12/09/22 12/09/22 History nebulization albuterol sulfate 90 mcg/actuation 2 puff inhalation Q6H PRN 08/01/20 12/09/22 12/09/22 History aerosol inhaler (ProAir HFA) Shortness Of Breath cholecalciferol (vitamin D3) 50 50 mcg PO DAILY 08/01/20 12/09/22 12/09/22 History mcg (2,000 unit) tablet cyclobenzaprine 10 mg tablet 10 mg PO TID PRN Muscle Spasm 08/01/20 12/09/22 12/09/22 History ferrous sulfate 325 mg (65 mg 325 mg PO BID 08/01/20 12/09/22 12/09/22 History iron) tablet fluoxetine 40 mg capsule 40 mg PO DAILY 08/01/20 12/09/22 12/09/22 History fluticasone propionate 50 2 spray intranasal DAILY PRN Nasal 08/01/20 12/09/22 12/09/22 History mcg/actuation nasal Congestion spray,suspension (Flonase Allergy Relief) lorazepam 0.5 mg tablet 0.5 mg PO BID 08/01/20 12/09/22 12/09/22 History mirtazapine 7.5 mg tablet 7.5 mg PO BEDTIME 08/01/20 12/09/22 12/09/22 History pantoprazole 40 mg tablet,delayed 40 mg PO DAILY 08/01/20 12/09/22 12/09/22 History release atorvastatin 40 mg tablet 40 mg PO DAILY 06/19/22 12/09/22 12/09/22 History cetirizine 10 mg tablet 10 mg PO DAILY 06/19/22 12/09/22 12/09/22 History fluticasone propionate 115 2 puff inhalation BID 06/19/22 12/09/22 12/09/22 History mcg-salmeterol 21 mcg/actuation HFA inhaler (Advair HFA) latanoprost 0.005 % eye drops 1 drp ophthalmic (eye) BEDTIME 06/19/22 12/09/22 12/09/22 History hpdpcingxd-gjmgqhzfjogwh-whoujveg 1 tab PO Q12H PRN Headache 12/09/22 12/09/22 Unknown History 50 mg-325 mg-40 mg tablet docusate sodium 100 mg capsule 200 mg PO DAILY PRN Constipation 12/09/22 12/09/22 12/09/22 History lidocaine 5 % topical ointment 1 appl topical TID PRN Knee pain 12/09/22 12/09/22 Unknown History oxycodone-acetaminophen 5 mg-325 1 tab PO Q8H PRN Pain, Moderate 12/09/22 12/09/22 Unknown History mg tablet terazosin 1 mg capsule 1 mg PO DAILY 12/09/22 12/09/22 12/09/22 History Physical Exam Vital Signs: Vital Signs: Last Vital Signs Temp 97.6 F 12/10/22 11:46 Pulse 81 12/10/22 16:02 Resp 20 12/10/22 16:02 BP 148/75 H 12/10/22 11:46 Pulse Ox 92 12/10/22 11:46 O2 Del Method 12/10/22 11:46 O2 Flow Rate 2 12/10/22 07:17 BMI result Body Mass Index 16.7 GENERAL APPEARANCE: in no acute distress, pleasant. NECK: no carotid bruit, no jugular venous distention. SKIN: no suspicious lesions, warm and dry. HEART: no murmurs, regular rate and rhythm. LUNGS: clear to auscultation bilaterally. ABDOMEN: soft, nontender. EXTREMITIES: no edema. PERIPHERAL PULSES: equal. NEUROLOGIC: No gross deficits, AAO X 3 Objective Labs and Meds 12/10/22 05:23 12/10/22 05:23 Lab results: Laboratory Results - last 24 hr 12/09/22 12/09/22 12/09/22 14:25 16:19 17:54 WBC RBC Hgb Hct MCV MCH MCHC RDW Plt Count MPV Immature Gran % (Auto) Neut % (Auto) Lymph % (Auto) [place] % (Auto) Eos % (Auto) Baso % (Auto) Lymph # (Auto) [place] # (Auto) Eos # (Auto) Baso # (Auto) Abs Immat Gran (auto) Absolute Neuts (auto) Absolute Nucleated RBC Nucleated RBC % (auto) Sodium 143 Potassium 5.4 H D Chloride 113 H Carbon Dioxide 17 L Anion Gap 18 BUN 68 H Creatinine 5.64 H* Estim Creat Clear Calc 5.4 Estimated GFR 7 Random Glucose 77 Calcium 8.2 L Iron TIBC % Saturation Unsat Iron Binding Total Bilirubin 0.4 Direct Bilirubin < 0.2 AST 16 ALT 10 Alkaline Phosphatase 124 H C-Reactive Protein 1.41 H B-Natriuretic Peptide Total Protein 6.8 Albumin 3.6 Lipase 54 COVID-19 (MARIANA) Negative COVID-19 Clin Com See Note Blood Type O Positive Antibody Screen NEGATIVE Antigen Identification E Antigen - NEGATIVE Crossmatch ([facility]) See Detail 12/09/22 12/09/22 12/10/22 19:57 19:57 05:23 WBC 7.3 RBC 2.87 L D Hgb 8.6 L D 8.4 L Hct 27.4 L D 26.7 L MCV 93.0 MCH 29.3 MCHC 31.5 RDW 14.1 Plt Count 214 MPV 10.5 Immature Gran % (Auto) 0.4 Neut % (Auto) 71.4 Lymph % (Auto) 18.3 L [place] % (Auto) 4.9 Eos % (Auto) 4.5 H Baso % (Auto) 0.5 Lymph # (Auto) 1.3 [place] # (Auto) 0.4 Eos # (Auto) 0.3 Baso # (Auto) 0.0 Abs Immat Gran (auto) 0.03 Absolute Neuts (auto) 5.2 Absolute Nucleated RBC 0.000 Nucleated RBC % (auto) 0.0 Sodium 143 Potassium 4.7 Chloride 112 H Carbon Dioxide 19 L Anion Gap 17 BUN 67 H Creatinine 5.52 H* Estim Creat Clear Calc 5.5 Estimated GFR 7 Random Glucose 78 Calcium 8.1 L Iron TIBC % Saturation Unsat Iron Binding Total Bilirubin Direct Bilirubin AST ALT Alkaline Phosphatase C-Reactive Protein B-Natriuretic Peptide Total Protein Albumin Lipase COVID-19 (MARIANA) COVID-19 Clin Com Blood Type Antibody Screen Antigen Identification Crossmatch ([facility]) 12/10/22 12/10/22 12/10/22 05:23 05:23 05:23 WBC RBC Hgb Hct MCV MCH MCHC RDW Plt Count MPV Immature Gran % (Auto) Neut % (Auto) Lymph % (Auto) [place] % (Auto) Eos % (Auto) Baso % (Auto) Lymph # (Auto) [place] # (Auto) Eos # (Auto) Baso # (Auto) Abs Immat Gran (auto) Absolute Neuts (auto) Absolute Nucleated RBC Nucleated RBC % (auto) Sodium 144 Potassium 5.2 H Chloride 113 H Carbon Dioxide 15 L Anion Gap 21 H BUN 69 H Creatinine 5.49 H* Estim Creat Clear Calc 5.5 Estimated GFR 7 Random Glucose 81 Calcium 8.3 L Iron 98 TIBC 224 L % Saturation 44 Unsat Iron Binding 126 Total Bilirubin Direct Bilirubin AST ALT Alkaline Phosphatase C-Reactive Protein B-Natriuretic Peptide 502 H Total Protein Albumin Lipase COVID-19 ([facility]IANA) COVID-19 Clin Com Blood Type Antibody Screen Antigen Identification Crossmatch ([facility]) Imaging Radiologist's impression: Impressions Head CT 12/09/22 15:07 IMPRESSION: No acute intracranial pathology. Renal Ultrasound 12/09/22 18:11 IMPRESSION: Stable increased echogenicity of both kidneys similar to that noted on prior ultrasound examinations and compatible with medical renal disease. Bilateral renal cysts. No follow up necessary. Assessment and Plan (1) CKD (chronic kidney disease) stage 4, GFR 15-29 ml/min: Status: Acute (2) Anemia: Status: Acute Plan 82-year-old female who is presenting with migraine headache and shortness of breath. She was noticed to be significantly anemic. Clinically she does not appear to be in congestive heart failure. Blood pressure was elevated but it appears it is improving. Please do not give her any hydralazine IV. Titrate the p.o. hydralazine to 25 mg 3 times a day. Also advanced kidney disease she should not be receiving any IV morphine. Start amlodipine 5 mg once a day. Monitor blood pressure closely. We will review echocardiogram to see if there is any structural issues with the heart but does not appear to be in heart failure right now and presentation mostly due to anemia. Thank you for allowing me to participate in the care of your patient. Please feel free to contact me if you have any questions. Time Spent With Patient Time: Total time managing care of this patient today ____ minutes. Procedures Date of Service Date of Service: 12/10/22
[2022-12-10 17:37] LABS: Anion Gap 22 (12-20); Blood Urea Nitrogen 68 mg/dL (9-16); Calcium 7.9 mg/dL (8.4-10.2); Carbon Dioxide 14 mmol/L (22-29); Chloride 111 mmol/L (96-108); Creatinine Clr Calc Pharmacy 6.2; Estimated Glomerular Filt Rate 8; Glucose Random 92 mg/dL (60-115); Potassium 4.7 mmol/L (3.3-5.1); Sodium 142 mmol/L (135-145)
[2022-12-10] MEDS: hydrALAZINE HCl 25 MG TABLET PO (21:29)
[2022-12-10] MEDS: Butalb/Acetamin/Caff 50/325/40 TABLET 1 TAB PO (21:33)
[2022-12-11] VITALS (16 sets, daily range): BP systolic 146–184; BP diastolic 69–96; PULSE 74–93; RESP 14–22; TEMP 36.3–37.1; O2SAT 90–95; BMI 17.1
[2022-12-11] MEDS: 0.9 % Sodium Chloride Flush 3 ML SYRINGE IVFLUSH ×3 (00:31→17:20)
[2022-12-11] MEDS: Heparin Sodium,Porcine 5,000 UNIT/ML VIAL 5000 UNIT SUBCUT ×2 (05:01→17:20)
[2022-12-11 06:47] LABS: Hematocrit 27.5 % (37.0-47.0); Hemoglobin 8.6 g/dl (12.0-16.0); Mean Corpuscular HGB Conc 31.3 g/dl (31.0-35.0); Mean Corpuscular Hemoglobin 28.6 pg (27.0-33.0); Mean Corpuscular Volume 91.4 fL (80.0-98.0); Mean Platelet Volume 10.2 fL (9.4-12.3); Platelet Count 198 X10*3/uL (160-400); Red Blood Count 3.01 X10*6/uL (4.20-5.50)
[2022-12-11 06:59] LABS: B Type Natriuretic Peptide 480 pg/mL (<100)
[2022-12-11 07:00] LABS: Blood Urea Nitrogen 63 mg/dL (9-16); Creatinine Clr Calc Pharmacy 6.5; Estimated Glomerular Filt Rate 8; Glucose Random 115 mg/dL (60-115)
[2022-12-11 07:08] LABS: Anion Gap 21 (12-20); Carbon Dioxide 15 mmol/L (22-29); Chloride 111 mmol/L (96-108); Potassium 4.2 mmol/L (3.3-5.1); Sodium 143 mmol/L (135-145)
[2022-12-11] MEDS: Albuterol/Iprat 2.5/0.5MG 3 ML AMPUL.NEB INHALE ×4 (07:47→20:19)
[2022-12-11] MEDS: Butalb/Acetamin/Caff 50/325/40 TABLET 1 TAB PO ×2 (07:54→12:26)
[2022-12-11] MEDS: amLODIPine Besylate 5 MG TABLET PO ×2 (07:55→12:21)
[2022-12-11] MEDS: hydrALAZINE HCl 25 MG TABLET PO ×3 (07:56→19:52)
[2022-12-11] MEDS: Sodium Bicarbonate 650 MG TABLET PO ×2 (07:56→19:52)
[2022-12-11] MEDS: ondansetron HCL 4 MG/2 ML VIAL IVPUSH (09:44)
[2022-12-11] MEDS: HYDROmorphone HCl 0.5 MG/0.5 ML SYRINGE IVPUSH ×3 (10:17→19:49)
--- NOTE | 2022-12-11 11:15 | PM.PNNEP ---
Subjective Subjective Date of Service: 12/11/22 Interval history: seen and examined denies CP/SOB/N/V/D Physical Exam Vital Signs: Vital Signs: Last Vital Signs Temp 98.6 F 12/11/22 07:21 Pulse 74 12/11/22 07:47 Resp 22 H 12/11/22 10:17 BP 148/79 H 12/11/22 07:21 Pulse Ox 95 12/11/22 07:21 O2 Del Method 12/11/22 07:21 O2 Flow Rate 2 12/10/22 07:17 BMI result Body Mass Index 17.1 Const: General: comfortable and no acute distress HEENT: Head: Yes normocephalic and Yes atraumatic Neck: Neck: Yes supple Resp: Auscultation: diminished lung sounds Cardio: Heart sounds: S1 normal heart sound present and S2 normal heart sound present GI: Palpation (GI): Soft to palpation and nontender Extrem: General: Yes normal to inspection Objective Data Labs 12/11/22 05:55 12/11/22 05:55 Labs: Laboratory Results - last 24 hr 12/09/22 12/10/22 12/11/22 16:19 16:48 05:55 WBC 4.0 L RBC 3.01 L Hgb 8.6 L Hct 27.5 L MCV 91.4 MCH 28.6 MCHC 31.3 RDW 14.0 Plt Count 198 MPV 10.2 Absolute Nucleated RBC 0.000 Nucleated RBC % (auto) 0.0 Sodium 142 Potassium 4.7 Chloride 111 H Carbon Dioxide 14 L Anion Gap 22 H BUN 68 H Creatinine 5.21 H* Estim Creat Clear Calc 6.2 Estimated GFR 8 Random Glucose 92 Calcium 7.9 L B-Natriuretic Peptide Crossmatch ([facility]) See Detail 12/11/22 12/11/22 05:55 05:55 WBC RBC Hgb Hct MCV MCH MCHC RDW Plt Count MPV Absolute Nucleated RBC Nucleated RBC % (auto) Sodium 143 Potassium 4.2 Chloride 111 H Carbon Dioxide 15 L Anion Gap 21 H BUN 63 H Creatinine 5.11 H* Estim Creat Clear Calc 6.5 Estimated GFR 8 Random Glucose 115 Calcium 8.0 L B-Natriuretic Peptide 480 H Crossmatch ([facility]) Procedures Date of Service Date of Service: 12/11/22 Assessment & Plan Assessment and plan (1) FLORECITA (acute kidney injury): Status: Acute (2) Hyperkalemia: Status: Acute (3) Metabolic acidosis: Status: Acute (4) CHF (congestive heart failure): Status: Acute (5) Anemia: Status: Acute (6) CKD (chronic kidney disease) stage 4, GFR 15-29 ml/min: Status: Acute Plan stable kidney function multifactorial: -acute hypertensive nephrosclerosis -renal hypoperfusion in the setting of CHF decompensation other less likely LVEF 60-65% type 3 cardio renal syndrome severe restriction in free water clearance known severe CKD 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 Progress Note: Quality Stroke Does the patient have a stroke diagnosis?: No
[2022-12-11] MEDS: oxyCODONE HCl Immed Release 5 MG TABLET PO (12:28)
--- NOTE | 2022-12-11 12:58 | HO.PM.IMPN ---
Subjective Subjective Date of Service: 12/11/22 Interval History: c/o tension MADDOX BP high no chest pain no dyspnea Review of Systems Review of Systems: Yes all other systems are reviewed and are negative Physical Exam Vital Signs: Vital Signs: Last Vital Signs Temp 98.2 F 12/11/22 11:43 Pulse 86 12/11/22 11:43 Resp 20 12/11/22 11:43 BP 184/96 H 12/11/22 11:43 Pulse Ox 94 12/11/22 11:43 O2 Del Method 12/11/22 11:43 O2 Flow Rate 2 12/10/22 07:17 BMI result Body Mass Index 17.1 Const: Other: Gen: in no acute distress HEENT: sclera anicteric, moist mucus membranes Neck: supple Lungs: clear to auscultation bilaterally Heart: regular rate and rhythm, no murmurs Abd: soft, non-tender, non-distended Ext: no edema Skin: warm/well-perfused Neuro: alert and oriented x3, no focal findings Psych: appropriate affect Objective Data Active Medications Acetaminophen (Acetaminophen 325 Mg Tablet) 650 mg PO Q6H PRN PRN Reason: Pain, Mild (Pain Scale 1-3) Last Admin: 12/10/22 16:19 Dose: 650 mg Documented By: RASHID Acetaminophen/Butalbital/Caffeine (Butalb/Acetamin/Caff 50/325/40 Tablet) 1 tab PO Q4H PRN PRN Reason: Headache Last Admin: 12/11/22 12:26 Dose: 1 tab Documented By: MERARY Albuterol/Ipratropium (Albuterol/Iprat 2.5/0.5mg 3 Ml Ampul.Neb) 3 ml INHALE RQ4H WHILE AWAKE [facility] Last Admin: 12/11/22 11:23 Dose: 3 ml Documented By: GIAN Amlodipine Besylate (Amlodipine Besylate 10 Mg Tablet) 10 mg PO DAILY [facility]; Protocol Furosemide (Furosemide 40 Mg Tablet) 40 mg PO DAILY [facility]; Protocol Heparin Sodium (Porcine) (Heparin Sodium,Porcine 5,000 Unit/Ml Vial) 5,000 unit SUBCUT Q12H [facility] Last Admin: 12/11/22 05:01 Dose: 5,000 unit Documented By: SARA Hydralazine HCl (Hydralazine Hcl 25 Mg Tablet) 25 mg PO TID [facility]; Protocol Last Admin: 12/11/22 07:56 Dose: 25 mg Documented By: NICKO Hydromorphone HCl (Hydromorphone Hcl 0.5 Mg/0.5 Ml Syringe) 0.5 mg IVPUSH Q4H PRN; Protocol PRN Reason: severe headache Last Admin: 12/11/22 10:17 Dose: 0.5 mg Documented By: NICKO Ondansetron HCl (Ondansetron Hcl 4 Mg/2 Ml Vial) 4 mg IVPUSH Q6H PRN PRN Reason: Nausea and Vomiting Last Admin: 12/11/22 09:44 Dose: 4 mg Documented By: NICKO Oxycodone HCl (Oxycodone Hcl Immed Release 5 Mg Tablet) 5 mg PO Q4H PRN PRN Reason: headache Last Admin: 12/11/22 12:28 Dose: 5 mg Documented By: MERARY Pharmacy Consult (Consult Rx Perform Med Rec) 1 each MISCELLANE ONCE PRN PRN Reason: Consult order Sodium Bicarbonate (Sodium Bicarbonate 650 Mg Tablet) 650 mg PO BID [facility] Last Admin: 12/11/22 07:56 Dose: 650 mg Documented By: NICKO Sodium Chloride (0.9 % Sodium Chloride Flush 3 Ml Syringe) 3 ml IVFLUSH QSHIFT [facility] Last Admin: 12/11/22 07:57 Dose: 3 ml Documented By: NICKO Labs 12/11/22 05:55 12/11/22 05:55 Labs: Laboratory Results - last 24 hr 12/10/22 12/11/22 12/11/22 16:48 05:55 05:55 MCV 91.4 MCH 28.6 MCHC 31.3 RDW 14.0 Plt Count 198 MPV 10.2 Absolute Nucleated RBC 0.000 Nucleated RBC % (auto) 0.0 Anion Gap 22 H 21 H Estim Creat Clear Calc 6.2 6.5 Estimated GFR 8 8 Random Glucose 92 115 Calcium 7.9 L 8.0 L B-Natriuretic Peptide 12/11/22 05:55 MCV MCH MCHC RDW Plt Count MPV Absolute Nucleated RBC Nucleated RBC % (auto) Anion Gap Estim Creat Clear Calc Estimated GFR Random Glucose Calcium B-Natriuretic Peptide 480 H TTE 12/10/22 - Normal left ventricular size and systolic function. There is ? mildly increased left ventricular wall thickness.? The visually? estimated ejection fraction is between 60-65%. ? - Diastolic function is normal for age.? - There is severe septal asymmetric hypertrophy. ? - Normal right ventricular cavity size and systolic function.? ? - There is mild dilatation of the sinuses of Valsalva measuring? 3.77 cm. ? Assessment and Plan (1) CHF (congestive heart failure): Status: Acute Plan hospital d#3 82yo F with CKD4 presenting with MADDOX after not taking BP medication for 2 mo # HTN urgency - increase amlodipine, continue hydralazine # FLORECITA/CKD4 # metabolic acidosis - Nephrology following, avoid nephrotoxins, continue bicarbonate supplementation # hyperK - resolved # anemia - suspect due to anemia of CKD, improved after 1u pRBCs, FOBT pending # CHF, not - IV->PO furosemide # MADDOX - prn oxycodone, prn hydromorphone # COPD, not in acute exac - Duonebs # HLD - statin # mood disorder - mirtazapine, fluoxetine, lorazepam # VTE ppx: UFH # dispo: anticipate home in next 1-2d In my clinical judgment, the patient requires continued inpatient hospitalization for the following reasons: BP control, FLORECITA Time Spent With Patient Time: Total time managing care of this patient today __35__ minutes. Quality Stroke Does the patient have a stroke diagnosis?: No VTE Prior VTE?: No VTE Risk Level:: Medical - moderate - high VTE Device Contraindication: Treatment Not Indicated VTE Drug Contraindication: N/A - Med Ordered
--- NOTE | 2022-12-11 14:27 | MHC.CM.PN ---
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
[2022-12-11] MEDS: Mirtazapine 7.5 MG TABLET PO (19:52)
[2022-12-11] MEDS: Ferrous Sulfate 324 MG TABLET.DR PO (19:52)
[2022-12-11] MEDS: LORazepam 0.5 MG TABLET PO (19:52)
[2022-12-11] MEDS: Montelukast Sodium 10 MG TABLET PO (19:52)
[2022-12-11] MEDS: Latanoprost 0.005 % Ophth Sol 2.5 ML DROPS 1 DROP EYE-BOTH (19:54)
[2022-12-12] VITALS (10 sets, daily range): BP systolic 108–153; BP diastolic 61–81; PULSE 79–92; RESP 12–19; TEMP 36.3–37.4; O2SAT 90–99; BMI 16.9
[2022-12-12] MEDS: 0.9 % Sodium Chloride Flush 3 ML SYRINGE IVFLUSH ×3 (03:48→15:25)
[2022-12-12] MEDS: HYDROmorphone HCl 0.5 MG/0.5 ML SYRINGE IVPUSH ×4 (03:48→19:48)
[2022-12-12] MEDS: Heparin Sodium,Porcine 5,000 UNIT/ML VIAL 5000 UNIT SUBCUT ×2 (06:10→17:35)
[2022-12-12] MEDS: Omeprazole 20 MG CAPSULE.DR PO (06:11)
[2022-12-12 06:23] LABS: Mean Corpuscular Hemoglobin 28.9 pg (27.0-33.0); PLT CLUMP 1; Red Cell Distribution Width 14.1 % (11.0-16.0)
[2022-12-12 06:25] LABS: Hematocrit 26.8 % (37.0-47.0); Hemoglobin 8.2 g/dl (12.0-16.0); Mean Corpuscular HGB Conc 30.6 g/dl (31.0-35.0); Mean Corpuscular Volume 94.4 fL (80.0-98.0); Red Blood Count 2.84 X10*6/uL (4.20-5.50)
[2022-12-12 06:44] LABS: B Type Natriuretic Peptide 334 pg/mL (<100)
[2022-12-12 06:57] LABS: Anion Gap 19 (12-20); Blood Urea Nitrogen 61 mg/dL (9-16); Carbon Dioxide 17 mmol/L (22-29); Chloride 110 mmol/L (96-108); Creatinine Clr Calc Pharmacy 6.5; Estimated Glomerular Filt Rate 8; Glucose Random 83 mg/dL (60-115); Potassium 4.7 mmol/L (3.3-5.1); Sodium 141 mmol/L (135-145)
[2022-12-12] MEDS: Albuterol/Iprat 2.5/0.5MG 3 ML AMPUL.NEB INHALE ×4 (07:30→19:37)
[2022-12-12 07:35] LABS: White Blood Count 4.9 X10*3/uL (4.8-10.8)
[2022-12-12] MEDS: Atorvastatin Calcium 40 MG TABLET PO (09:01)
[2022-12-12] MEDS: Sodium Bicarbonate 650 MG TABLET PO ×2 (09:01→19:48)
[2022-12-12] MEDS: Furosemide 40 MG TABLET PO (09:01)
[2022-12-12] MEDS: Loratadine 10 MG TABLET PO (09:02)
[2022-12-12] MEDS: hydrALAZINE HCl 25 MG TABLET PO ×3 (09:02→19:48)
[2022-12-12] MEDS: Cholecalciferol (Vitamin D3) 25 MCG TABLET 50 MCG PO (09:02)
[2022-12-12] MEDS: FLUoxetine HCl 20 MG CAPSULE 40 MG PO (09:02)
[2022-12-12] MEDS: LORazepam 0.5 MG TABLET PO ×2 (09:02→19:48)
[2022-12-12] MEDS: Doxazosin Mesylate 1 MG TABLET PO (09:02)
[2022-12-12] MEDS: Ferrous Sulfate 324 MG TABLET.DR PO ×2 (09:02→19:48)
[2022-12-12] MEDS: amLODIPine Besylate 10 MG TABLET PO (09:02)
--- NOTE | 2022-12-12 09:51 | HO.PM.IMPN ---
Subjective Subjective Date of Service: 12/12/22 Interval History: BP improved, SCr slightly improved, MADDOX improving no chest pain no dyspnea no edema Review of Systems Review of Systems: Yes all other systems are reviewed and are negative Physical Exam Vital Signs: Vital Signs: Last Vital Signs Temp 98.4 F 12/12/22 07:18 Pulse 92 12/12/22 08:56 Resp 18 12/12/22 07:31 BP 131/75 12/12/22 07:18 Pulse Ox 92 12/12/22 07:18 O2 Del Method 12/12/22 07:18 O2 Flow Rate 2 12/10/22 07:17 BMI result Body Mass Index 16.9 Const: Other: Gen: in no acute distress HEENT: sclera anicteric, moist mucus membranes Neck: supple Lungs: clear to auscultation bilaterally Heart: regular rate and rhythm, no murmurs Abd: soft, non-tender, non-distended Ext: no edema Skin: warm/well-perfused Neuro: alert and oriented x3, no focal findings Psych: appropriate affect Objective Data Active Medications Acetaminophen (Acetaminophen 325 Mg Tablet) 650 mg PO Q6H PRN PRN Reason: Pain, Mild (Pain Scale 1-3) Last Admin: 12/10/22 16:19 Dose: 650 mg Documented By: RASHID Acetaminophen/Butalbital/Caffeine (Butalb/Acetamin/Caff 50/325/40 Tablet) 1 tab PO Q4H PRN PRN Reason: Headache Last Admin: 12/11/22 12:26 Dose: 1 tab Documented By: MERARY Albuterol Sulfate (Albuterol Sulfate 90 Mcg 8 Gm Inhaler) 2 puff INHALE Q6H PRN PRN Reason: Shortness Of Breath Albuterol/Ipratropium (Albuterol/Iprat 2.5/0.5mg 3 Ml Ampul.Neb) 3 ml INHALE RQ4H WHILE AWAKE [facility] Last Admin: 12/12/22 07:30 Dose: 3 ml Documented By: MEGHAN Amlodipine Besylate (Amlodipine Besylate 10 Mg Tablet) 10 mg PO DAILY [facility]; Protocol Last Admin: 12/12/22 09:02 Dose: 10 mg Documented By: MYRIAM Atorvastatin Calcium (Atorvastatin Calcium 40 Mg Tablet) 40 mg PO DAILY [facility] Last Admin: 12/12/22 09:01 Dose: 40 mg Documented By: MYRIAM Cyclobenzaprine HCl (Cyclobenzaprine Hcl 10 Mg Tablet) 10 mg PO TID PRN PRN Reason: Muscle Spasm Docusate Sodium (Docusate Sodium 100 Mg Capsule) 200 mg PO DAILY PRN PRN Reason: Constipation Doxazosin Mesylate (Doxazosin Mesylate 1 Mg Tablet) 1 mg PO DAILY [facility] Last Admin: 12/12/22 09:02 Dose: 1 mg Documented By: MYRIAM Ferrous Sulfate (Ferrous Sulfate 324 Mg Tablet.Dr) 324 mg PO BID [facility] Last Admin: 12/12/22 09:02 Dose: 324 mg Documented By: MYRIAM Fluoxetine HCl (Fluoxetine Hcl 20 Mg Capsule) 40 mg PO DAILY [facility] Last Admin: 12/12/22 09:02 Dose: 40 mg Documented By: MYRIAM Fluticasone Propionate (Fluticasone Propionate Nasal 16 Gm [place]) 2 spray NOSTRIL-B DAILY PRN PRN Reason: Nasal Congestion Fluticasone/Vilanterol (Fluticasone/Vilanterol 100/25 Blst.W.Dev) 1 puff INHALE RDAILY [facility] Last Admin: 12/12/22 07:31 Dose: Not Given Documented By: MEGHAN Non-Admin Reason: Med Not Available Furosemide (Furosemide 40 Mg Tablet) 40 mg PO DAILY [facility]; Protocol Last Admin: 12/12/22 09:01 Dose: 40 mg Documented By: MYRIAM Heparin Sodium (Porcine) (Heparin Sodium,Porcine 5,000 Unit/Ml Vial) 5,000 unit SUBCUT Q12H [facility] Last Admin: 12/12/22 06:10 Dose: 5,000 unit Documented By: AURA Hydralazine HCl (Hydralazine Hcl 25 Mg Tablet) 25 mg PO TID [facility]; Protocol Last Admin: 12/12/22 09:02 Dose: 25 mg Documented By: MYRIAM Hydromorphone HCl (Hydromorphone Hcl 0.5 Mg/0.5 Ml Syringe) 0.5 mg IVPUSH Q4H PRN; Protocol PRN Reason: severe headache Last Admin: 12/12/22 03:48 Dose: 0.5 mg Documented By: AURA Latanoprost (Latanoprost 0.005 % Ophth Paz 2.5 Ml Drops) 1 drop EYE-BOTH BEDTIME [facility] Last Admin: 12/11/22 19:54 Dose: 1 drop Documented By: MARIA ISABEL Loratadine (Loratadine 10 Mg Tablet) 10 mg PO DAILY [facility] Last Admin: 12/12/22 09:02 Dose: 10 mg Documented By: MYRIAM Lorazepam (Lorazepam 0.5 Mg Tablet) 0.5 mg PO BID [facility] Last Admin: 12/12/22 09:02 Dose: 0.5 mg Documented By: MYRIAM Mirtazapine (Mirtazapine 7.5 Mg Tablet) 7.5 mg PO BEDTIME [facility] Last Admin: 12/11/22 19:52 Dose: 7.5 mg Documented By: MARIA ISABEL Montelukast Sodium (Montelukast Sodium 10 Mg Tablet) 10 mg PO BEDTIME [facility] Last Admin: 12/11/22 19:52 Dose: 10 mg Documented By: MARIA ISABEL Omeprazole (Omeprazole 20 Mg Capsule.Dr) 20 mg PO DAILY@0630 [facility] Last Admin: 12/12/22 06:11 Dose: 20 mg Documented By: AURA Ondansetron HCl (Ondansetron Hcl 4 Mg/2 Ml Vial) 4 mg IVPUSH Q6H PRN PRN Reason: Nausea and Vomiting Last Admin: 12/11/22 09:44 Dose: 4 mg Documented By: NICKO Oxycodone HCl (Oxycodone Hcl Immed Release 5 Mg Tablet) 5 mg PO Q4H PRN PRN Reason: headache Last Admin: 12/11/22 12:28 Dose: 5 mg Documented By: MERARY Pharmacy Consult (Consult Rx Perform Med Rec) 1 each MISCELLANE ONCE PRN PRN Reason: Consult order Sodium Bicarbonate (Sodium Bicarbonate 650 Mg Tablet) 650 mg PO BID [facility] Last Admin: 12/12/22 09:01 Dose: 650 mg Documented By: MYRIAM Sodium Chloride (0.9 % Sodium Chloride Flush 3 Ml Syringe) [facility] Last Admin: 12/12/22 09:02 Dose: 3 ml Documented By: MYRIAM Vitamin D (Cholecalciferol (Vitamin D3) 25 Mcg Tablet) 50 mcg PO DAILY [facility] Last Admin: 12/12/22 09:02 Dose: 50 mcg Documented By: MYRIAM Labs 12/12/22 05:59 12/12/22 05:59 Labs: Laboratory Results - last 24 hr 12/12/22 12/12/22 12/12/22 05:59 05:59 05:59 MCV 94.4 MCH 28.9 MCHC 30.6 L RDW 14.1 Plt Count TNP MPV Not Reportable Absolute Nucleated RBC 0.000 Nucleated RBC % (auto) 0.0 Anion Gap 19 Estim Creat Clear Calc 6.5 Estimated GFR 8 Random Glucose 83 Calcium 8.0 L B-Natriuretic Peptide 334 H Assessment and Plan (1) CHF (congestive heart failure): Status: Acute [facility] hospital d#4 82yo F with CKD4 presenting with MADDOX after not taking BP medication for 2 mo # HTN urgency - increased amlodipine, continue hydralazine # FLORECITA/CKD4 # metabolic acidosis - Nephrology following, avoid nephrotoxins, continue bicarbonate supplementation # hyperK - resolved # anemia - suspect due to anemia of CKD, improved after 1u pRBCs, FOBT pending # CHF, not - IV->PO furosemide # MADDOX - prn oxycodone, prn hydromorphone # COPD, not in acute exac - Duonebs # HLD - statin # mood disorder - mirtazapine, fluoxetine, lorazepam # VTE ppx: UFH # dispo: anticipate home likely tomorrow In my clinical judgment, the patient requires continued inpatient hospitalization for the following reasons: BP control, FLORECITA Time Spent With Patient Time: Total time managing care of this patient today __35__ minutes. Quality Stroke Does the patient have a stroke diagnosis?: No VTE Prior VTE?: No VTE Risk Level:: Medical - moderate - high VTE Device Contraindication: Treatment Not Indicated VTE Drug Contraindication: N/A - Med Ordered
--- NOTE | 2022-12-12 11:05 | PM.PNNEP ---
Subjective Subjective Date of Service: 12/12/22 Interval history: seen and examined sitting out of bed no complaints Physical Exam Vital Signs: Vital Signs: Last Vital Signs Temp 98.4 F 12/12/22 07:18 Pulse 92 12/12/22 08:56 Resp 18 12/12/22 07:31 BP 131/75 12/12/22 07:18 Pulse Ox 92 12/12/22 07:18 O2 Del Method 12/12/22 07:18 O2 Flow Rate 2 12/10/22 07:17 BMI result Body Mass Index 16.9 Const: General: comfortable and no acute distress HEENT: Head: Yes normocephalic and Yes atraumatic Neck: Neck: Yes supple Resp: Auscultation: diminished lung sounds Cardio: Heart sounds: S1 normal heart sound present and S2 normal heart sound present GI: Palpation (GI): Soft to palpation and nontender Extrem: General: Yes normal to inspection Objective Data Labs 12/12/22 05:59 12/12/22 05:59 Labs: Laboratory Results - last 24 hr 12/12/22 12/12/22 12/12/22 05:59 05:59 05:59 WBC 4.9 RBC 2.84 L Hgb 8.2 L Hct 26.8 L MCV 94.4 MCH 28.9 MCHC 30.6 L RDW 14.1 Plt Count TNP MPV Not Reportable Absolute Nucleated RBC 0.000 Nucleated RBC % (auto) 0.0 Sodium 141 Potassium 4.7 Chloride 110 H Carbon Dioxide 17 L Anion Gap 19 BUN 61 H Creatinine 5.09 H* Estim Creat Clear Calc 6.5 Estimated GFR 8 Random Glucose 83 Calcium 8.0 L B-Natriuretic Peptide 334 H Procedures Date of Service Date of Service: 12/12/22 Assessment & Plan Assessment and plan (1) FLORECITA (acute kidney injury): Status: Acute (2) Metabolic acidosis: Status: Acute (3) CHF (congestive heart failure): Status: Acute (4) Anemia: Status: Acute (5) CKD (chronic kidney disease) stage 4, GFR 15-29 ml/min: Status: Acute Plan stable kidney function ? 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 Progress Note: Quality Stroke Does the patient have a stroke diagnosis?: No
--- NOTE | 2022-12-12 14:34 | P.CDIC_ITS ---
CDI Concurrent Query Documentation Clarification: PHYSICIAN'S DOCUMENTATION REQUEST Date of Query: 12/12/22 1434 Patient Name: Cristina Figueroa Admit Date: 12/09/22 Dear Doctor, A review of the medical record indicates additional documentation may be needed. Please review below and update the documentation accordingly. Clinical Indicators: A diagnosis of CHF was documented. Is there further clarification/specificity that correlates with the findings below: Risk Factors/Clinical Indicators/Treatments Per provider progress note on 12/10: Acute congestive heart failure.? Unspecified No previous history Echocardiogram ordered Per echo on 12/10: The visually estimated ejection fraction is between 60-65%. Per nephrology progress note on 12/11: renal hypoperfusion in the setting of CHF decompensation LVEF 60-65% Please provide further specificity regarding the most likely type and acuity of CHF you are evaluating, treating, or monitoring. Examples include: Type: * Systolic * Diastolic * Combined Systolic/Diastolic * Other ? please specify * Unable to determine Acuity: * Acute * Chronic * Acute on chronic * Unable to determine Use of terms such as suspected, likely, concern for, or probable (associated with a specific diagnosis that is being evaluated, monitored, or treated as if it exists) are acceptable and can be coded in the inpatient setting, when documented at the time of discharge. Thank you, Liz Howard MS, RN, CCRN Extension: [phone] Please use your independent medical judgment in providing your response. THIS QUERY IS PART OF THE PERMANENT MEDICAL RECORD Provider Response: Other Other Diagnosis: CHF< NOT
--- NOTE | 2022-12-12 14:44 | P.CDIC_ITS ---
CDI Concurrent Query Documentation Clarification: PHYSICIAN'S DOCUMENTATION REQUEST Date of Query: 12/12/22 1444 Patient Name: Cristina Figueroa Admit Date: 12/09/22 Dear Doctor, A review of the medical record indicates additional documentation may be needed. Please review below and update the documentation accordingly. Clinical Indicators: Is there a diagnosis that correlates with the findings below: Risk Factors/Clinical Indicators/Treatments BMI per provider notes: 15.6 Weight: 49.2kg Height: 5ft 7in Other indicators: Decreased PO intake consuming only 25% of meals from admission-12/12 per associate of science in nursing & output assessments If possible, please provide an associated diagnosis related to the abnormal BMI, such as: Malnutrition: * Mild * Moderate * Severe For a BMI <= 19: * Underweight * Weight loss * Cachexia * Anorexia * Other (please specify) * Unable to determine Use of terms such as suspected, likely, concern for, or probable (associated with a specific diagnosis that is being evaluated, monitored, or treated as if it exists) are acceptable and can be coded in the inpatient setting, when documented at the time of discharge. Thank you, Liz Howard, MS, RN, CCRN Extension: [phone] Please use your independent medical judgment in providing your response. THIS QUERY IS PART OF THE PERMANENT MEDICAL RECORD Provider Response: Severe Protein-Calorie Malnutrition Other Diagnosis: severe
[2022-12-12] MEDS: Montelukast Sodium 10 MG TABLET PO (19:48)
[2022-12-12] MEDS: Mirtazapine 7.5 MG TABLET PO (19:48)
[2022-12-13] VITALS: BP 123/62; PULSE 93; RESP 18; TEMP 37.1; O2SAT 92
[2022-12-13] MEDS: HYDROmorphone HCl 0.5 MG/0.5 ML SYRINGE IVPUSH ×3 (03:16→13:44)
[2022-12-13 03:39] VITALS: BP 113/67; PULSE 99; RESP 20; TEMP 36.6; O2SAT 94
[2022-12-13] MEDS: Omeprazole 20 MG CAPSULE.DR PO (05:35)
[2022-12-13] MEDS: Heparin Sodium,Porcine 5,000 UNIT/ML VIAL 5000 UNIT SUBCUT (05:35)
[2022-12-13 06:00] VITALS: BMI 16.6
[2022-12-13 06:12] LABS: Hematocrit 27.6 % (37.0-47.0); Hemoglobin 8.4 g/dl (12.0-16.0); Mean Corpuscular HGB Conc 30.4 g/dl (31.0-35.0); Mean Corpuscular Hemoglobin 28.5 pg (27.0-33.0); Mean Corpuscular Volume 93.6 fL (80.0-98.0); Platelet Count 188 X10*3/uL (160-400); Red Blood Count 2.95 X10*6/uL (4.20-5.50); Red Cell Distribution Width 14.1 % (11.0-16.0); White Blood Count 5.7 X10*3/uL (4.8-10.8)
[2022-12-13 06:38] LABS: B Type Natriuretic Peptide 111 pg/mL (<100)
[2022-12-13 07:39] VITALS: BP 134/68; PULSE 97; RESP 16; TEMP 37.1; O2SAT 90
[2022-12-13 07:45] LABS: Blood Urea Nitrogen 69 mg/dL (9-16); Calcium 8.3 mg/dL (8.4-10.2); Estimated Glomerular Filt Rate 8; Glucose Random 90 mg/dL (60-115)
[2022-12-13 07:53] LABS: Anion Gap 22 (12-20); Carbon Dioxide 16 mmol/L (22-29); Chloride 110 mmol/L (96-108); Potassium 5.8 mmol/L (3.3-5.1); Sodium 142 mmol/L (135-145)
[2022-12-13] MEDS: FLUoxetine HCl 20 MG CAPSULE 40 MG PO (08:13)
[2022-12-13] MEDS: amLODIPine Besylate 10 MG TABLET PO (08:13)
[2022-12-13] MEDS: LORazepam 0.5 MG TABLET PO (08:13)
[2022-12-13] MEDS: Furosemide 40 MG TABLET PO (08:13)
[2022-12-13] MEDS: 0.9 % Sodium Chloride Flush 3 ML SYRINGE IVFLUSH (08:13)
[2022-12-13] MEDS: Sodium Bicarbonate 650 MG TABLET PO (08:13)
[2022-12-13] MEDS: Cholecalciferol (Vitamin D3) 25 MCG TABLET 50 MCG PO (08:14)
[2022-12-13] MEDS: hydrALAZINE HCl 25 MG TABLET PO ×2 (08:14→13:42)
[2022-12-13] MEDS: Ferrous Sulfate 324 MG TABLET.DR PO (08:14)
[2022-12-13] MEDS: Doxazosin Mesylate 1 MG TABLET PO (08:14)
[2022-12-13] MEDS: Atorvastatin Calcium 40 MG TABLET PO (08:14)
[2022-12-13] MEDS: Loratadine 10 MG TABLET PO (08:14)
[2022-12-13 08:45] VITALS: BP 134/68; PULSE 97; O2SAT 90
--- NOTE | 2022-12-13 10:10 | PM.PNNEP ---
Subjective Subjective Date of Service: 12/13/22 Interval history: seen and examined d/w medical attending no complaints Physical Exam Vital Signs: Vital Signs: Last Vital Signs Temp 98.7 F 12/13/22 07:39 Pulse 97 12/13/22 08:45 Resp 16 12/13/22 07:39 BP 134/68 12/13/22 08:45 Pulse Ox 90 L 12/13/22 08:45 O2 Del Method 12/13/22 07:39 O2 Flow Rate 2 12/10/22 07:17 BMI result Body Mass Index 16.6 Const: General: comfortable and no acute distress HEENT: Head: Yes normocephalic and Yes atraumatic Neck: Neck: Yes supple Resp: Auscultation: diminished lung sounds Cardio: Heart sounds: S1 normal heart sound present and S2 normal heart sound present GI: Palpation (GI): Soft to palpation and nontender Extrem: General: Yes normal to inspection Objective Data Labs 12/13/22 05:40 12/13/22 05:40 Labs: Laboratory Results - last 24 hr 12/13/22 12/13/22 12/13/22 05:40 05:40 05:40 WBC 5.7 RBC 2.95 L Hgb 8.4 L Hct 27.6 L MCV 93.6 MCH 28.5 MCHC 30.4 L RDW 14.1 Plt Count 188 MPV 10.0 Absolute Nucleated RBC 0.000 Nucleated RBC % (auto) 0.0 Sodium 142 Potassium 5.8 H D Chloride 110 H Carbon Dioxide 16 L Anion Gap 22 H BUN 69 H Creatinine 5.34 H* Estim Creat Clear Calc 6.0 Estimated GFR 8 Random Glucose 90 Calcium 8.3 L B-Natriuretic Peptide 111 H Procedures Date of Service Date of Service: 12/13/22 Assessment & Plan Assessment and plan (1) FLORECITA (acute kidney injury): Status: Acute (2) Metabolic acidosis: Status: Acute (3) CHF (congestive heart failure): Status: Acute (4) Anemia: Status: Acute (5) CKD (chronic kidney disease) stage 4, GFR 15-29 ml/min: Status: Acute Plan kidney function at plateau ? 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 Progress Note: Quality Stroke Does the patient have a stroke diagnosis?: No
[2022-12-13] MEDS: Acetaminophen 325 MG TABLET 650 MG PO (10:25)
[2022-12-13] MEDS: Butalb/Acetamin/Caff 50/325/40 TABLET 1 TAB PO ×2 (10:25→13:43)
[2022-12-13] MEDS: oxyCODONE HCl Immed Release 5 MG TABLET PO ×2 (10:25→13:42)
[2022-12-13] MEDS: Sodium Zirconium Cyclosilicate 10 GM POWD.PACK PO (10:48)
--- NOTE | 2022-12-13 11:16 | PM.DS ---
DS: Providers Provider Date of Service: 12/13/22 Date of admission: 12/09/22 16:54 Date of discharge: 12/13/22 Primary care physician: Fran Alegria MD Consults: 12/09/22 16:54 Consult to Cardiology Routine Consulting Provider: Dvais Dang Reason for consultation: CHF Has provider been notified: No 12/09/22 17:32 Consult to Nephrology Routine Consulting Provider: Geovanny Turner Reason for consultation: florecita Has provider been notified: No DS: Diagnosis Discharge Diagnosis (1) FLORECITA (acute kidney injury): Status: Inactive (2) Metabolic acidosis: Status: Inactive (3) CHF (congestive heart failure): Status: Inactive (4) Anemia: Status: Inactive (5) CKD (chronic kidney disease) stage 4, GFR 15-29 ml/min: Status: Inactive (6) Anemia in chronic kidney disease: Status: Acute (7) Hypertensive urgency: Status: Inactive DS: Summary Hospital Course Hospital Course: from admission H+P, 12/09/22 by hospitalist ELDER Zurita: 82-year-old woman presented ER with complaints of headache over the last 24 hours.? She reports migraine headache with bilateral temporal pain and pain to the top of the head with photophobia and vomiting.? She was found to be hypertensive in the ER with blood pressure as high as 210/110.? She reported that she has not taken her blood pressure medication over 2 months as her medications were going to be adjusted and they just were not reordered.? She reported she tried calling her primary care provider's office but never got her medications reordered.? Denies chest pain, shortness breath, diarrhea, sick contacts, recent travel.? Hemoglobin 6.7 with history of severe anemia, 1 unit of PRBCs ordered.? Potassium 5.4, creatinine 5.6.? In the ER she was given IV Lasix, Reglan, Benadryl, Zofran, morphine, labetalol in a dose of amlodipine.? Be admitted for further management and treatment of acute congestive heart failure, hypertensive urgency in FLORECITA. This 82yo F with CKD4 presenting with MADDOX after not taking BP medication for 2 mo was admitted to the [facility] [place]. Hospital course by problem: # HTN urgency - BP controlled on amlodipine, hydralazine, furosemide, and terazosin. Importance of compliance was counseled. # FLORECITA/CKD5 - Followed by Nephrology. Serum creatinine appeared to settle around new baseline of 5. She will need close Nephrology follow-up and likelihood of eventually needing dialysis is high. # metabolic acidosis - Started on bicarbonate supplementation. # hyperkalemia - Resolved with 1 dose of Lokelma # anemia - Due to CKD. Improved after 1 unit of packed red blood cells. # severe malnutrition - Should take 1 can of Ensure or other protein supplement tid. She was discharged with [facility] services. Time Spent with Patient Time attestation: Total time managing care of this patient today ___40_ minutes. Discharge coordination time: Greater than 30 minutes Quality: Safe Use of Opioids Does Pt have an Active Cancer Diagnosis on the Problem List?: No Quality: Stroke Does the patient have a stroke diagnosis?: No Physical Exam Vital Signs: Vital Signs: Last Vital Signs Temp 98.7 F 12/13/22 07:39 Pulse 97 12/13/22 08:45 Resp 16 12/13/22 07:39 BP 134/68 12/13/22 08:45 Pulse Ox 90 L 12/13/22 08:45 O2 Del Method 12/13/22 07:39 O2 Flow Rate 2 12/10/22 07:17 BMI result Body Mass Index 16.6 Const: Other: Gen: in no acute distress HEENT: sclera anicteric, moist mucus membranes Neck: supple Lungs: clear to auscultation bilaterally Heart: regular rate and rhythm, no murmurs Abd: soft, non-tender, non-distended Ext: no edema Skin: warm/well-perfused Neuro: alert and oriented x3, no focal findings Psych: appropriate affect DS: Data Data Completed and Pending Completed studies during hospitalization [Text1]: Laboratory Results WBC 5.7 X10*3/uL (4.8-10.8) 12/13/22 05:40 RBC 2.95 X10*6/uL (4.20-5.50) L 12/13/22 05:40 Hgb 8.4 g/dl (12.0-16.0) L 12/13/22 05:40 Hct 27.6 % (37.0-47.0) L 12/13/22 05:40 MCV 93.6 fL (80.0-98.0) 12/13/22 05:40 MCH 28.5 pg (27.0-33.0) 12/13/22 05:40 MCHC 30.4 g/dl (31.0-35.0) L 12/13/22 05:40 RDW 14.1 % (11.0-16.0) 12/13/22 05:40 Plt Count 188 X10*3/uL (160-400) 12/13/22 05:40 MPV 10.0 fL (9.4-12.3) 12/13/22 05:40 Immature Gran % (Auto) 0.4 % (0.0-0.4) 12/10/22 05:23 Neut % (Auto) 71.4 % (45-73) 12/10/22 05:23 Lymph % (Auto) 18.3 % (20-40) L 12/10/22 05:23 Andrew % (Auto) 4.9 % (2-11) 12/10/22 05:23 Eos % (Auto) 4.5 % (0-4) H 12/10/22 05:23 Baso % (Auto) 0.5 % (0-2) 12/10/22 05:23 Lymph # (Auto) 1.3 X10*3/uL (1.2-4.9) 12/10/22 05:23 Andrew # (Auto) 0.4 X10*3/uL (0.1-1.2) 12/10/22 05:23 Eos # (Auto) 0.3 X10*3/uL (0.0-0.4) 12/10/22 05:23 Baso # (Auto) 0.0 X10*3/uL (0.0-0.2) 12/10/22 05:23 Abs Immat Gran (auto) 0.03 X10*3/uL (0.00-0.03) 12/10/22 05:23 Absolute Neuts (auto) 5.2 x10*3/uL (2.0-8.3) 12/10/22 05:23 Absolute Nucleated RBC 0.000 X10*3/uL (0.0-0.012) 12/13/22 05:40 Nucleated RBC % (auto) 0.0 /100WBC (0.0-0.2) 12/13/22 05:40 ESR 92 MM/HR (0-20) H 12/09/22 14:25 Sodium 142 mmol/L (135-145) 12/13/22 05:40 Potassium 5.8 mmol/L (3.3-5.1) H D 12/13/22 05:40 Chloride 110 mmol/L (96-108) H 12/13/22 05:40 Carbon Dioxide 16 mmol/L (22-29) L 12/13/22 05:40 Anion Gap 22 (12-20) H 12/13/22 05:40 BUN 69 mg/dL (9-16) H 12/13/22 05:40 Creatinine 5.34 mg/dL (0.5-1.4) H* 12/13/22 05:40 Estim Creat Clear Calc 6.0 12/13/22 05:40 Estimated GFR 8 12/13/22 05:40 Random Glucose 90 mg/dL (60-115) 12/13/22 05:40 Calcium 8.3 mg/dL (8.4-10.2) L 12/13/22 05:40 Iron 98 mcg/dL (30-160) 12/10/22 05:23 TIBC 224 mcg/dL (228-428) L 12/10/22 05:23 % Saturation 44 % (15-50) 12/10/22 05:23 Unsat Iron Binding 126 ug/dL 12/10/22 05:23 Total Bilirubin 0.4 mg/dL (0.0-1.0) 12/09/22 14:25 Direct Bilirubin < 0.2 mg/dL (0.0-0.5) 12/09/22 14:25 AST 16 U/L (5-31) 12/09/22 14:25 ALT 10 U/L (0-31) 12/09/22 14:25 Alkaline Phosphatase 124 U/L (39-117) H 12/09/22 14:25 Troponin I High Sens 37.2 ng/L (<3.5-17.0) H 12/09/22 14:25 C-Reactive Protein 1.41 mg/dL (< or = 0.50) H 12/09/22 14:25 B-Natriuretic Peptide 111 pg/mL (<100) H 12/13/22 05:40 Total Protein 6.8 g/dL (6.5-8.0) 12/09/22 14:25 Albumin 3.6 g/dL (3.5-5.0) 12/09/22 14:25 Lipase 54 U/L (8-78) 12/09/22 14:25 COVID-19 (MARIANA) Negative (Negative) 12/09/22 17:54 COVID-19 Clin Com See Note 12/09/22 17:54 Blood Type O Positive 12/09/22 16:19 Antibody Screen NEGATIVE 12/09/22 16:19 Antigen Identification E Antigen - NEGATIVE 12/09/22 16:19 Crossmatch (AHG) See Detail 12/09/22 16:19 Impressions Chest X-Ray 12/09/22 14:52 IMPRESSION: Atelectasis or small infiltrate at the left lung base. Head CT 12/09/22 15:07 IMPRESSION: No acute intracranial pathology. Renal Ultrasound 12/09/22 18:11 IMPRESSION: Stable increased echogenicity of both kidneys similar to that noted on prior ultrasound examinations and compatible with medical renal disease. Bilateral renal cysts. No follow up necessary. Discharge Plan Discharge Anticipated Discharge Date/Time: 12/13/22 11:07 Patient Disposition: Home Health Service Discharge Diagnosis: # HTN urgency # FLORECITA/CKD4 # metabolic acidosis # hyperkalemia # anemia of chronic kidney disease # severe malnutrition Referrals: Moe GONZALEZ [Outside] - 1 Week (home care services for [facility] and physical therapy) Fran Alegria MD [Primary Care Provider] - 1 Week Ciaran Frederick MD [Physician] - 2 Weeks Discharge Medications: New furosemide 40 mg Tablet 40 mg PO DAILY Qty: 30 0RF Protocol: Hold for SBP< HOLD for SBP < : 90 hydralazine 25 mg Tablet 25 mg PO TID Qty: 90 0RF Protocol: Hold for SBP< HOLD for SBP < : 90 sodium bicarbonate 650 mg Tablet 650 mg PO BID Qty: 60 0RF amlodipine 10 mg Tablet 10 mg PO DAILY Qty: 30 0RF Protocol: Hold for SBP< HOLD for SBP < : 90 Continued albuterol sulfate 2.5 mg /3 mL (0.083 %) solution for nebulization 1 vial inhalation QID PRN (Reason: Shortness Of Breath) montelukast 10 mg tablet 10 mg PO BEDTIME sodium chloride 7 % solution for nebulization 1 vial inhalation BID albuterol sulfate [ProAir HFA] 90 mcg/actuation Hfa Aerosol Inhaler 2 puff INHALATION Q6H PRN (Reason: Shortness Of Breath) fluticasone propionate [Flonase Allergy Relief] 50 mcg/actuation [place],Suspension 2 spray INTRANASAL DAILY PRN (Reason: Nasal Congestion) cholecalciferol (vitamin D3) 50 mcg (2,000 unit) Tablet 50 mcg PO DAILY lorazepam 0.5 mg Tablet 0.5 mg PO BID pantoprazole 40 mg Tablet,Delayed Release (Dr/Ec) 40 mg PO DAILY mirtazapine 7.5 mg Tablet 7.5 mg PO BEDTIME fluoxetine 40 mg Capsule 40 mg PO DAILY ferrous sulfate 325 mg (65 mg iron) Tablet 325 mg PO BID cyclobenzaprine 10 mg Tablet 10 mg PO TID PRN (Reason: Muscle Spasm) latanoprost 0.005 % drops 1 drp ophthalmic (eye) BEDTIME atorvastatin 40 mg tablet 40 mg PO DAILY cetirizine 10 mg Tablet 10 mg PO DAILY Advair HFA 115-21 mcg/actuation Hfa Aerosol Inhaler 2 puff INHALATION BID terazosin 1 mg capsule 1 mg PO DAILY docusate sodium 100 mg capsule 200 mg PO DAILY PRN (Reason: Constipation) [id number] 50-325-40 mg tablet 1 tab PO Q12H PRN (Reason: Headache) lidocaine 5 % ointment 1 appl topical TID PRN (Reason: Knee pain) oxycodone-acetaminophen 5-325 mg tablet 1 tab PO Q8H PRN (Reason: Pain, Moderate) Qty: 10 0RF Discharge Orders: Discharge Order (Routine); Ordered 12/13/22 Ordered By: Lakshmi Moran Diet: Low salt diet Activity on Discharge: As tolerated Stand Alone Forms: Patient Portal Discharge page Other Ambulatory Orders: Basic Metabolic Panel (Routine) Timeframe: 1 Week Facility: [facility] - Location: Laboratory Ordered By: Lakshmi Moran Care Plan Goals: kidney health avoid complications of kidney disease Health Concerns: # HTN urgency # FLORECITA/CKD4 # metabolic acidosis # hyperkalemia # anemia of chronic kidney disease # severe malnutrition Plan of Treatment: take antihypertensives as prescribed: - amlodipine 10 mg daily - hydralazine 25 mg 3x a day - furosemide 40 mg daily - terazosin 1 mg daily take bicarbonate, sodium bicarbonate 650 mg twice daily follow up with your kidney specialist in 1-2 weeks; repeat BMP in 1 week take 1 can of Ensure or Boost 3x a day; increase protein intake Please follow up with your primary care doctor within 1 week. Return to the hospital if you experience recurrent or worsening symptoms. Assessment: See Discharge Summary. Discharge Date/Time: 12/13/22 14:09
--- NOTE | 2022-12-13 11:17 | W.MHC.F2F ---
Service Date Service Date: 12/13/22 Encounter Date of encounter: 12/13/22 Reasons for Services Signs and symptoms assessed: HTN CKD Reason for jail: medication management, medication treatment and teach disease management Reason for physical therapy: home safety and mobility, therapeutic exercises, gait/transfer training, assess need for DME, ADL training and energy conservation MD Overseeing Care: Fran Alegria Homebound: Leaving the home is medically contraindicated at this time without the asist of a device and/or another person due th the listed conditions above and below. Reason homebound: unsteady gait / fall risk and weakness related to hospital stay Certification: Based on the above findings, I certify that this patient is confined to the home and needs intermittent jail care, physical therapy and/or speech therapy, or continues to need occupational therapy. The patient is under my care, and I have initiated the establishment of the plan of care. The patient will be followed by a physician who will periodically review the plan of care. Time Spent With Patient Time: Total time managing care of this patient today ____ minutes.
--- NOTE | 2022-12-13 11:25 | MHC.CM.PN ---
DP: [facility]MM DELIVERED PT HAS BEEN MEDICALLY CLEARED FOR DC HOME WITH NEW [facility] FOR SN AND PT. [facility] PT AND FAMILY FIRST CHOICE. RN AWARE. DAUGHTER LAURECE UPDATED AND ON WAY TO P/U PT.
== END 2022-12-13 14:09 | disposition home health service (06) | DRG 682 ==
LOC: HO.ED 16:22 → HO.EDOVER 17:12 → HO.IMC 12-10 08:18 → HO.S3 12-11 23:27 → HO.IMC 12-11 23:29
PROVIDERS: Admitting Provider Nurse Practitioner Acute Care; Emergency Provider Emergency Medicine; PCP Internal Medicine; Visit Provider Family Medicine
DX: I12.0 Hypertensive chronic kidney disease with stage 5 chronic kidney disease or end stage renal disease (principal); E43 Unspecified severe protein-calorie malnutrition; E87.20 Acidosis, unspecified; Z68.1 Body mass index [BMI] 19.9 or less, adult; N18.5 Chronic kidney disease, stage 5; I16.0 Hypertensive urgency; E87.5 Hyperkalemia; D63.1 Anemia in chronic kidney disease; J44.9 Chronic obstructive pulmonary disease, unspecified; F41.9 Anxiety disorder, unspecified; F32.A Depression, unspecified; E78.5 Hyperlipidemia, unspecified; Z20.822 Contact with and (suspected) exposure to COVID-19; Z91.14 Patient's other noncompliance with medication regimen; Z87.891 Personal history of nicotine dependence; Z88.2 Allergy status to sulfonamides; Z88.5 Allergy status to narcotic agent; Z88.6 Allergy status to analgesic agent; Z79.899 Other long term (current) drug therapy
CPT/HCPCS: 36415; 70450; 71045; 76775; 80048; 80076; 83540; 83690; 83880; 84484; 85014; 85018; 85025; 85027; 85652; 86140; 86850; 86900; 86901; 86902; 86905; 86920; 86922; 87635; 93005; 93306; 93356; 97116; 97162; 99285; J1170; J1200; J1643; J1940; J2270; J2405; J2765; P9016; Q9957

== ENCOUNTER 2022-12-23 15:11 | Outpatient (REF) | payer MEDICARE, SELFPAY ==
[2022-12-23 16:35] LABS: Anion Gap 18 (12-20); Blood Urea Nitrogen 65 mg/dL (9-16); Calcium 8.3 mg/dL (8.4-10.2); Carbon Dioxide 16 mmol/L (22-29); Chloride 111 mmol/L (96-108); Estimated Glomerular Filt Rate 7; Glucose Random 81 mg/dL (60-115); Potassium 5.4 mmol/L (3.3-5.1); Sodium 140 mmol/L (135-145)
== END 2022-12-23 15:12 | disposition home or self-care (01) ==
LOC: HO.HVNA 15:11
PROVIDERS: Visit Provider Internal Medicine
DX: I50.9 Heart failure, unspecified (principal); N28.9 Disorder of kidney and ureter, unspecified
CPT/HCPCS: 36415; 80048

== ENCOUNTER 2022-12-27 09:59 | Inpatient (IN) | payer MEDICARE, SELFPAY ==
[2022-12-27] VITALS (12 sets, daily range): BP systolic 137–178; BP diastolic 67–94; PULSE 83–99; RESP 12–21; TEMP 36.2–37.2; O2SAT 96–98; BMI 16.2; BMI 15.7
--- NOTE | ~2022-12-27 | XR_ITS ---
EXAMINATION: XR CHEST CLINICAL INFORMATION: Chest pain. COMPARISON: 12/09/2022 chest radiograph. TECHNIQUE: Frontal view of the chest was obtained. FINDINGS: No significant abnormality is noted involving the heart, lungs, mediastinum, bony thorax or soft tissues. XR/XR chest 1V IMPRESSION: No acute cardiopulmonary process.
--- NOTE | ~2022-12-27 | CT_ITS ---
EXAMINATION: CT ABDOMEN AND PELVIS WITHOUT CONTRAST CLINICAL INFORMATION: Diffuse abdominal pain. Nausea and vomiting. COMPARISON: 04/16/2022 TECHNIQUE: Multidetector volumetric imaging was performed from the superior aspect of the liver through the pubic symphysis. Sagittal and coronal reformatted images were obtained on the technologist's workstation. This CT examination was performed using dose optimization techniques as appropriate, variously including the following: *Automated exposure control *Adjustment of mA and/or kV according to patient size (this includes techniques or standardized protocols for targeted exams where dose is matched to indication/reason for exam; i.e. extremities or head) *Use of iterative reconstruction technique DLP: 248 mGy-cm FINDINGS: LUNG BASES: Emphysema noted at the lung bases. No consolidation. LIVER, GALLBLADDER, AND BILIARY TREE: The liver is normal in size, shape, and attenuation. No focal hepatic lesion or biliary ductal dilatation is present. Cholecystectomy. PANCREAS: Unremarkable. SPLEEN: Unremarkable. ADRENAL GLANDS: Unremarkable. KIDNEYS AND URETERS: The kidneys are normal in size, shape, and attenuation. No hydronephrosis, hydroureter, or calculi seen. No perinephric stranding. BLADDER: Unremarkable. GASTROINTESTINAL TRACT: The stomach is decompressed. Normal caliber small bowel. No obstruction. Colonic diverticulosis present which is greatest at the descending and sigmoid colon. No diverticulitis. No free air or free fluid. ABDOMINAL WALL: No significant hernia is appreciated. LYMPH NODES: Normal. VASCULAR: Normal caliber aorta with severe atherosclerotic calcification. PELVIC VISCERA: Uterus not well seen. No adnexal mass. OSSEOUS STRUCTURES: No acute or suspicious osseous abnormality. Degenerative change throughout the spine. Mild height loss of the L2 vertebral body is chronic. Total right hip arthroplasty without evidence of acute failure. Cerclage wires present at the femur. CT/CT abdomen pelvis wo IV con IMPRESSION: No acute findings in the abdomen or pelvis. No inflammatory changes. Colonic diverticulosis without diverticulitis. Fleischner guidelines were followed.
--- NOTE | 2022-12-27 10:09 | ECG_ITS ---
Test Reason : CP Blood Pressure : / mmHG Vent. Rate : 085 BPM Atrial Rate : 085 BPM P-R Int : 156 ms QRS Dur : 072 ms QT Int : 372 ms P-R-T Axes : 072 021 054 degrees QTc Int : 442 ms Normal sinus rhythm Normal ECG When compared with ECG of 09-DEC-2022 14:33, Premature ventricular complexes are no longer Present Nonspecific T wave abnormality, improved in Lateral leads Referred By: Generic ED Physician Electronically Signed By:YONI GUAMAN MD
[2022-12-27 10:30] LABS: MANUAL DIFF FLAG NO
--- NOTE | 2022-12-27 10:30 | PC.NURSE ---
PT A+O x3, VSS. SHE REPORTS CHRONIC ABD PAIN. PT SENT FROM NEPHROLOGY FOR HD. HX OF CHRONIC CKD AND IS ESRF. PT WAS SCHEDULED TO HAVE PERMACATH PLACED THIS MONTH TO START HD. PT ACCOMPANIED BY DAUGHTER WHO CONFIRMS INFORMATION.
[2022-12-27 10:45] LABS: Basophils Absolute Auto 0.1 X10*3/uL (0.0-0.2); Basophils Percent Auto 1.1 % (0-2); Eosinophils Absolute Auto 0.3 X10*3/uL (0.0-0.4); Eosinophils Percent Auto 5.8 % (0-4); Hemoglobin 7.7 g/dl (12.0-16.0); Imm Gran Abs Auto 0.04 X10*3/uL (0.00-0.03); Imm Gran Pct Auto 0.7 % (0.0-0.4); Lymphocytes Percent Auto 35.9 % (20-40); Mean Corpuscular HGB Conc 30.8 g/dl (31.0-35.0); Mean Corpuscular Hemoglobin 28.2 pg (27.0-33.0); Mean Corpuscular Volume 91.6 fL (80.0-98.0); Monocytes Absolute Auto 0.4 X10*3/uL (0.1-1.2); Monocytes Percent Auto 7.1 % (2-11); Neutrophils Absolute Auto 2.7 x10*3/uL (2.0-8.3); Neutrophils Percent Auto 49.4 % (45-73); Platelet Count 275 X10*3/uL (160-400); Red Blood Count 2.73 X10*6/uL (4.20-5.50); Red Cell Distribution Width 13.9 % (11.0-16.0); White Blood Count 5.5 X10*3/uL (4.8-10.8)
--- NOTE | 2022-12-27 10:46 | ED_ITS ---
HPI - General Adult General Chief complaint: General Medical Stated complaint: Kidney issue Time Seen by Provider: 12/27/22 10:20 Source: patient, family and old records reviewed Mode of arrival: EMS History of Present Illness HPI narrative: 82y/o female with PMHx of CKD stage 4, anemia, asthma, anxiety, depression, GERD, COPD, HLD, HTN, recently discharged from our facility on 12/13 for HTNsive urgency/FLORECITA/CKD/metabolic acidosis/hyperkalemia, sent to ED today by Nephrology for HD. Patient reports generalized fatigue/weakness, headache, abdominal pain, nausea, vomiting, & back pain x1 week, since prior hospitalization. Denies fever, chills, diarrhea/constipation, dysuria/hematuria, CP/SOB Onset (ago): week(s) Related Data Home Medications Medication Instructions Recorded Confirmed albuterol sulfate 2.5 mg/3 mL 1 vial inhalation QID PRN 07/28/20 12/27/22 (0.083 %) solution for nebulization Shortness Of Breath montelukast 10 mg tablet 10 mg PO BEDTIME 07/28/20 12/27/22 sodium chloride 7 % for 1 vial inhalation BID 07/28/20 12/27/22 nebulization albuterol sulfate 90 mcg/actuation 2 puff inhalation Q6H PRN 08/01/20 12/27/22 aerosol inhaler (ProAir HFA) Shortness Of Breath cholecalciferol (vitamin D3) 50 50 mcg PO DAILY 08/01/20 12/27/22 mcg (2,000 unit) tablet cyclobenzaprine 10 mg tablet 10 mg PO TID PRN Muscle Spasm 08/01/20 12/27/22 ferrous sulfate 325 mg (65 mg 325 mg PO BID 08/01/20 12/27/22 iron) tablet fluoxetine 40 mg capsule 40 mg PO DAILY 08/01/20 12/27/22 fluticasone propionate 50 2 spray intranasal DAILY PRN Nasal 08/01/20 12/27/22 mcg/actuation nasal Congestion spray,suspension (Flonase Allergy Relief) lorazepam 0.5 mg tablet 0.5 mg PO BID 08/01/20 12/27/22 mirtazapine 7.5 mg tablet 7.5 mg PO BEDTIME 08/01/20 12/27/22 pantoprazole 40 mg tablet,delayed 40 mg PO DAILY 08/01/20 12/27/22 release atorvastatin 40 mg tablet 40 mg PO DAILY 06/19/22 12/27/22 cetirizine 10 mg tablet 10 mg PO DAILY 06/19/22 12/27/22 fluticasone propionate 115 2 puff inhalation BID 06/19/22 12/27/22 mcg-salmeterol 21 mcg/actuation HFA inhaler (Advair HFA) latanoprost 0.005 % eye drops 1 drp ophthalmic (eye) BEDTIME 06/19/22 12/27/22 ttnhyrdcza-egbwjaddfgfpj-vpjgkfwu 1 tab PO Q12H PRN Headache 12/09/22 12/27/22 50 mg-325 mg-40 mg tablet docusate sodium 100 mg capsule 200 mg PO DAILY PRN Constipation 12/09/22 12/27/22 lidocaine 5 % topical ointment 1 appl topical TID PRN Knee pain 12/09/22 12/27/22 terazosin 1 mg capsule 1 mg PO DAILY 12/09/22 12/27/22 Previous Rx's Medication Instructions Recorded amlodipine 10 mg tablet 10 mg PO DAILY #30 tabs 12/13/22 furosemide 40 mg tablet 40 mg PO DAILY #30 tabs 12/13/22 hydralazine 25 mg tablet 25 mg PO TID #90 tabs 12/13/22 oxycodone-acetaminophen 5 mg-325 1 tab PO Q8H PRN Pain, Moderate 12/13/22 mg tablet #10 tabs sodium bicarbonate 650 mg tablet 650 mg PO BID #60 tabs 12/13/22 Allergies Allergy/AdvReac Type Severity Reaction Status Date / Time codeine [Codeine] Allergy Mild RASH Verified 06/19/22 14:09 Sulfa (Sulfonamide Allergy Mild HIVES Verified 06/19/22 14:09 Antibiotics) [Sulfa (Sulfonamides)] ibuprofen [From Motrin] AdvReac Mild STOMACH Verified 06/19/22 14:09 UPSET, Rectal bleeding Review of Systems Review of Systems: Constitutional: No Fever, No Chills, +Fatigue, +Malaise ENT/Mouth: No Ear Pain, No Nasal Congestion, No sore throat, No Rhinorrhea, No Swallowing Difficulty Eyes: No Eye Pain, No Swelling, No Redness, No Vision Changes Cardiovascular: No Chest Pain, No SOB, No Edema, No Palpitations Respiratory: No Cough, No Sputum,No Dyspnea Gastrointestinal: +Nausea, +Vomiting, No Diarrhea, No Constipation, +Abdominal pain Genitourinary: No Dysuria, No Urinary Frequency, No Hematuria, No Urinary Incontinence/retention, No Urgency, +Flank Pain Musculoskeletal: No joint pain, No Myalgias, No Joint Swelling Skin: No Skin Lesions, No rash Neuro: + Weakness, No Dizziness, + Headache Yes all other systems are reviewed and are negative Constitutional: Constitutional: Reports as per [facility] Past Medical History Attestation statement: The following information was validated with the patient. Medical History FLORECITA (acute kidney injury) Anemia Anemia Anxiety and depression Asthma Back pain CHF (congestive heart failure) Chronic anemia CKD (chronic kidney disease) CKD (chronic kidney disease) stage 4, GFR 15-29 ml/min COPD (chronic obstructive pulmonary disease) GERD (gastroesophageal reflux disease) Headache Hiatal hernia Hyperkalemia Hyperlipidemia Hypertension Hypertensive urgency Metabolic acidosis Osteoarthritis Surgical History H/O of rectopexy H/O: hysterectomy History of bowel resection History of cholecystectomy History of esophagogastroduodenoscopy (EGD) History of left-sided carotid endarterectomy History of open reduction and internal fixation (ORIF) procedure History of total right hip arthroplasty Hx of breast biopsy Hx of colonoscopy Social History Social History Household Members: Family and Other Housing: Apartment Do you presently have visiting nurse or other home services: Yes (physical therapy) Alcohol intake: unknown Patient Tobacco Use Status: Former Tobacco user Second Hand Smoke Exposure: No Substance Use Type: Marijuana Advance Directives: Yes Advance Directives on File: Yes Advance Directives Date on File: 09/04/20 service: No Current occupational status: retired Physical Exam ED Vital Signs: Vital Signs - 24 hr 12/27/22 10:04 12/27/22 10:28 12/27/22 12:00 Temperature 97.1 F 98.6 F 98.4 F Pulse Rate 86 83 83 Respiratory Rate 16 13 15 Blood Pressure 159/81 H 143/76 H 150/80 H Pulse Oximetry 97 97 96 Oxygen Delivery Method Room Air Room Air Room Air 12/27/22 14:00 12/27/22 16:41 Temperature 98.0 F 98.5 F Pulse Rate 88 87 Respiratory Rate 21 H 16 Blood Pressure 159/82 H 163/86 H Pulse Oximetry 96 97 Oxygen Delivery Method Room Air Room Air BMI result Body Mass Index 16.2 Const General: cooperative, no acute distress and ill appearing chronically Orientation/consciousness: patient oriented x3 Limitations: no limitations HENMT Head: Yes normal to inspection and Yes atraumatic Ears: hearing grossly normal bilaterally General nose exam: Normal external nose present Face and sinus: Yes normal facial exam Eyes General: appearance normal, both eyes and all related structures EOM: EOMs intact bilaterally Neck Neck: Yes normal visual inspection and Yes no meningeal signs Resp Effort & Inspection: normal respiratory effort and no respiratory distress Auscultation: clear to auscultation bilaterally and no wheezes Cardio Rate: regular rate Heart sounds: S1 normal heart sound present and S2 normal heart sound present GI Inspection: Yes normal to inspection Palpation (GI): Soft to palpation, Tenderness to palpation present (GI) (Diffusely) with no rebound tenderness, no guarding and not rigid General: Yes CVA tenderness Back/Spine/Pelvis Back: CVA tenderness Skin Rashes: no rashes Wounds: no wounds Neuro General: patient oriented x3, tone normal and no meningeal signs Gait exam (Neuro): Normal gait present Extrem General: Yes normal to inspection, Yes no pedal edema and Yes no calf tenderness Course Course Course Narrative: -1211--no leukocytosis. H&H around patient's baseline. Chronic CKD with a BUN of 66, creatinine of 5.6. Potassium 5.2 >> will give p.o. loklema >> will consult Nephrology XR chest 1V IMPRESSION: No acute cardiopulmonary process. CT abdomen pelvis wo IV con IMPRESSION: No acute findings in the abdomen or pelvis. No inflammatory changes. Colonic diverticulosis without diverticulitis. ? Fleischner guidelines were followed. >> Dr. Hidalgo, nephrology evaluated patient in the ED, plan for PermCath placement by IR today with dialysis either tonight or tomorrow. Patient will be admitted for further management -IR unable to place PermCath today. Patient will be admitted to the ICU for line placement and dialysis Medications Administered Discontinued Medications Generic Name Dose Route Start Last Admin Trade Name Freq PRN Reason Stop Dose Admin Acetaminophen 650 mg 12/27/22 13:24 12/27/22 14:41 Acetaminophen 325 Mg Tablet PO 12/27/22 13:25 Not Given ONCE ONE Ondansetron HCl 4 mg 12/27/22 11:04 12/27/22 11:48 Ondansetron Hcl 4 Mg/2 Ml Vial IVPUSH 12/27/22 11:05 4 mg ONCE ONE Administration Sodium Zirconium Cyclosilicate 10 gm 12/27/22 12:11 12/27/22 13:02 Sodium Zirconium Cyclosilicate 10 Gm Powd.Pack PO 12/27/22 12:12 10 gm ONCE ONE Administration Medical Decision Making Medical Decision Making MDM Narrative: 82y/o female with PMHx of CKD stage 4, anemia, asthma, anxiety, depression, GERD, COPD, HLD, HTN, recently discharged from our facility on 12/13 for HTNsive urgency/FLORECITA/CKD/metabolic acidosis/hyperkalemia, sent to ED today by Nephrology for HD. On exam vital signs stable, NAD/nontoxic appearing, abdomen soft diffusely tender, no pedal edema, lungs CTA. Concern for metabolic/infectious etiology vs FLORECITA on CKD vs intra-abdominal pathology. Lower suspicion for ACS/PE or CHF at this time. Plan: EKG, labs, UA, CXR, CT AP, consult Nephrology, anticipated admission Please refer to course for remaining clinical decision making, interpretation of labs/imaging results, and discussions with consultants and/or family members. Differential Diagnosis Differential Diagnoses: The differential diagnosis associated with the presentation includes as above Admission/Observation Consideration of admission/observation: Escalation of care including admission/observation considered Consult Healthcare Provider Management of the patient was discussed with: Hospitalist and Extension Edger Lab Data [facility] Lab Attestation statement: I reviewed the patient's lab results. 12/27/22 10:25 12/27/22 10:25 Labs: Lab Results 12/27/22 12/27/22 12/27/22 Range/Units 10:25 10:25 10:25 WBC 5.5 (4.8-10.8) X10*3/uL RBC 2.73 L (4.20-5.50) X10*6/uL Hgb 7.7 L (12.0-16.0) g/dl Hct 25.0 L (37.0-47.0) % MCV 91.6 (80.0-98.0) fL MCH 28.2 (27.0-33.0) pg MCHC 30.8 L (31.0-35.0) g/dl RDW 13.9 (11.0-16.0) % Plt Count 275 D (160-400) X10*3/uL MPV 10.0 (9.4-12.3) fL Immature Gran % (Auto) 0.7 H (0.0-0.4) % Neut % (Auto) 49.4 (45-73) % Lymph % (Auto) 35.9 (20-40) % [place] % (Auto) 7.1 (2-11) % Eos % (Auto) 5.8 H (0-4) % Baso % (Auto) 1.1 (0-2) % Lymph # (Auto) 2.0 (1.2-4.9) X10*3/uL [place] # (Auto) 0.4 (0.1-1.2) X10*3/uL Eos # (Auto) 0.3 (0.0-0.4) X10*3/uL Baso # (Auto) 0.1 (0.0-0.2) X10*3/uL Abs Immat Gran (auto) 0.04 H (0.00-0.03) X10*3/uL Absolute Neuts (auto) 2.7 (2.0-8.3) x10*3/uL Absolute Nucleated RBC 0.000 (0.0-0.012) X10*3/uL Nucleated RBC % (auto) 0.0 (0.0-0.2) /100WBC PT (10.0-13.1) SEC INR (0.9-1.1) Sodium 138 (135-145) mmol/L Potassium 5.2 H (3.3-5.1) mmol/L Chloride 111 H (96-108) mmol/L Carbon Dioxide 14 L (22-29) mmol/L Anion Gap 18 (12-20) BUN 66 H (9-16) mg/dL Creatinine 5.60 H* (0.5-1.4) mg/dL Estim Creat Clear Calc 5.6 Estimated GFR 7 Random Glucose 91 (60-115) mg/dL Calcium 8.0 L (8.4-10.2) mg/dL Magnesium 1.8 (1.6-2.6) mg/dL Total Bilirubin 0.3 (0.0-1.0) mg/dL Direct Bilirubin < 0.2 (0.0-0.5) mg/dL AST 15 (5-31) U/L ALT 9 (0-31) U/L Alkaline Phosphatase 133 H (39-117) U/L Troponin I High Sens 9.4 D (<3.5-17.0) ng/L B-Natriuretic Peptide (<100) pg/mL Total Protein 7.1 (6.5-8.0) g/dL Albumin 3.5 (3.5-5.0) g/dL Lipase 62 (8-78) U/L Urine Color Urine Appearance Urine pH (5.0-9.0) Ur Specific [place] (1.005-1.025) Urine Protein (Neg-Trace) mg/dL Urine Glucose (UA) (Negative) mg/dL Urine Ketones (Negative) mg/dL Urine Blood (Negative) Urine Nitrite (Negative) Ur Leukocyte Esterase (Negative) Urine RBC (0-2) /HPF Urine WBC (0-5) /HPF Ur Squamous Epith Cells (0-2) /HPF Urine Bacteria (None Seen) Hyaline Casts (0-2) /LPF COVID-19 (MARIANA) (Negative) COVID-19 Clin Com 12/27/22 12/27/22 12/27/22 Range/Units 10:25 11:27 11:31 WBC (4.8-10.8) X10*3/uL RBC (4.20-5.50) X10*6/uL Hgb (12.0-16.0) g/dl Hct (37.0-47.0) % MCV (80.0-98.0) fL MCH (27.0-33.0) pg MCHC (31.0-35.0) g/dl RDW (11.0-16.0) % Plt Count (160-400) X10*3/uL MPV (9.4-12.3) fL Immature Gran % (Auto) (0.0-0.4) % Neut % (Auto) (45-73) % Lymph % (Auto) (20-40) % [place] % (Auto) (2-11) % Eos % (Auto) (0-4) % Baso % (Auto) (0-2) % Lymph # (Auto) (1.2-4.9) X10*3/uL [place] # (Auto) (0.1-1.2) X10*3/uL Eos # (Auto) (0.0-0.4) X10*3/uL Baso # (Auto) (0.0-0.2) X10*3/uL Abs Immat Gran (auto) (0.00-0.03) X10*3/uL Absolute Neuts (auto) (2.0-8.3) x10*3/uL Absolute Nucleated RBC (0.0-0.012) X10*3/uL Nucleated RBC % (auto) (0.0-0.2) /100WBC PT 10.6 (10.0-13.1) SEC INR 0.9 (0.9-1.1) Sodium (135-145) mmol/L Potassium (3.3-5.1) mmol/L Chloride (96-108) mmol/L Carbon Dioxide (22-29) mmol/L Anion Gap (12-20) BUN (9-16) mg/dL Creatinine (0.5-1.4) mg/dL Estim Creat Clear Calc Estimated GFR Random Glucose (60-115) mg/dL Calcium (8.4-10.2) mg/dL Magnesium (1.6-2.6) mg/dL Total Bilirubin (0.0-1.0) mg/dL Direct Bilirubin (0.0-0.5) mg/dL AST (5-31) U/L ALT (0-31) U/L Alkaline Phosphatase (39-117) U/L Troponin I High Sens (<3.5-17.0) ng/L B-Natriuretic Peptide 31 (<100) pg/mL Total Protein (6.5-8.0) g/dL Albumin (3.5-5.0) g/dL Lipase (8-78) U/L Urine Color Urine Appearance Urine pH (5.0-9.0) Ur Specific [place] (1.005-1.025) Urine Protein (Neg-Trace) mg/dL Urine Glucose (UA) (Negative) mg/dL Urine Ketones (Negative) mg/dL Urine Blood (Negative) Urine Nitrite (Negative) Ur Leukocyte Esterase (Negative) Urine RBC (0-2) /HPF Urine WBC (0-5) /HPF Ur Squamous Epith Cells (0-2) /HPF Urine Bacteria (None Seen) Hyaline Casts (0-2) /LPF COVID-19 (MARIANA) Negative (Negative) COVID-19 Clin Com See Note 12/27/22 Range/Units 14:43 WBC (4.8-10.8) X10*3/uL RBC (4.20-5.50) X10*6/uL Hgb (12.0-16.0) g/dl Hct (37.0-47.0) % MCV (80.0-98.0) fL MCH (27.0-33.0) pg MCHC (31.0-35.0) g/dl RDW (11.0-16.0) % Plt Count (160-400) X10*3/uL MPV (9.4-12.3) fL Immature Gran % (Auto) (0.0-0.4) % Neut % (Auto) (45-73) % Lymph % (Auto) (20-40) % [place] % (Auto) (2-11) % Eos % (Auto) (0-4) % Baso % (Auto) (0-2) % Lymph # (Auto) (1.2-4.9) X10*3/uL [place] # (Auto) (0.1-1.2) X10*3/uL Eos # (Auto) (0.0-0.4) X10*3/uL Baso # (Auto) (0.0-0.2) X10*3/uL Abs Immat Gran (auto) (0.00-0.03) X10*3/uL Absolute Neuts (auto) (2.0-8.3) x10*3/uL Absolute Nucleated RBC (0.0-0.012) X10*3/uL Nucleated RBC % (auto) (0.0-0.2) /100WBC PT (10.0-13.1) SEC INR (0.9-1.1) Sodium (135-145) mmol/L Potassium (3.3-5.1) mmol/L Chloride (96-108) mmol/L Carbon Dioxide (22-29) mmol/L Anion Gap (12-20) BUN (9-16) mg/dL Creatinine (0.5-1.4) mg/dL Estim Creat Clear Calc Estimated GFR Random Glucose (60-115) mg/dL Calcium (8.4-10.2) mg/dL Magnesium (1.6-2.6) mg/dL Total Bilirubin (0.0-1.0) mg/dL Direct Bilirubin (0.0-0.5) mg/dL AST (5-31) U/L ALT (0-31) U/L Alkaline Phosphatase (39-117) U/L Troponin I High Sens (<3.5-17.0) ng/L B-Natriuretic Peptide (<100) pg/mL Total Protein (6.5-8.0) g/dL Albumin (3.5-5.0) g/dL Lipase (8-78) U/L Urine Color Yellow Urine Appearance Clear Urine pH 6.5 (5.0-9.0) Ur Specific [place] 1.010 (1.005-1.025) Urine Protein 100 (2+) H (Neg-Trace) mg/dL Urine Glucose (UA) Negative (Negative) mg/dL Urine Ketones Negative (Negative) mg/dL Urine Blood Negative (Negative) Urine Nitrite Negative (Negative) Ur Leukocyte Esterase Negative (Negative) Urine RBC 0-2 (0-2) /HPF Urine WBC 0-5 (0-5) /HPF Ur Squamous Epith Cells 0-2 (0-2) /HPF Urine Bacteria None Seen (None Seen) Hyaline Casts 0-2 (0-2) /LPF COVID-19 (MARIANA) (Negative) COVID-19 Clin Com Independent Interpretation I performed an independent interpretation of an: EKG Interpretation: My interpretation EKG is normal sinus rhythm at a rate of 85. MO interval 156. QTC 442. Nonspecific T-wave abnormality. No STEMI. Artifact present Radiology Impression Discussion of test interpretation with radiology: I have reviewed the radiologist's reading. External Record Review External record reviewed: Outpatient record, Prior outpatient labs, Prior outpatient radiology and Outside ED record Critical Care Time Critical Care Time Critical Care Time: Yes Total Critical Care Time: 45 Attestation: I have personally provided critical care time exclusive of time spent on separately billable procedures. Time includes review of lab data, radiology results, discussion with consultants, and monitoring for potential decompensation. Intervention performed as documented. Discharge Plan Discharge Clinical Impression: Acute uremia, Acute kidney injury superimposed on CKD Prescriptions: No Action albuterol sulfate 2.5 mg /3 mL (0.083 %) solution for nebulization 1 vial inhalation QID PRN (Reason: Shortness Of Breath) montelukast 10 mg tablet 10 mg PO BEDTIME sodium chloride 7 % solution for nebulization 1 vial inhalation BID albuterol sulfate [ProAir HFA] 90 mcg/actuation Hfa Aerosol Inhaler 2 puff INHALATION Q6H PRN (Reason: Shortness Of Breath) fluticasone propionate [Flonase Allergy Relief] 50 mcg/actuation [place],Suspension 2 spray INTRANASAL DAILY PRN (Reason: Nasal Congestion) cholecalciferol (vitamin D3) 50 mcg (2,000 unit) Tablet 50 mcg PO DAILY lorazepam 0.5 mg Tablet 0.5 mg PO BID pantoprazole 40 mg Tablet,Delayed Release (Dr/Ec) 40 mg PO DAILY mirtazapine 7.5 mg Tablet 7.5 mg PO BEDTIME fluoxetine 40 mg Capsule 40 mg PO DAILY ferrous sulfate 325 mg (65 mg iron) Tablet 325 mg PO BID cyclobenzaprine 10 mg Tablet 10 mg PO TID PRN (Reason: Muscle Spasm) latanoprost 0.005 % drops 1 drp ophthalmic (eye) BEDTIME atorvastatin 40 mg tablet 40 mg PO DAILY cetirizine 10 mg Tablet 10 mg PO DAILY Advair HFA 115-21 mcg/actuation Hfa Aerosol Inhaler 2 puff INHALATION BID terazosin 1 mg capsule 1 mg PO DAILY docusate sodium 100 mg capsule 200 mg PO DAILY PRN (Reason: Constipation) zraeiujdea-rlpnxznpoxjgp-cnwe 50-325-40 mg tablet 1 tab PO Q12H PRN (Reason: Headache) lidocaine 5 % ointment 1 appl topical TID PRN (Reason: Knee pain) furosemide 40 mg Tablet 40 mg PO DAILY Qty: 30 0RF Protocol: Hold for SBP< HOLD for SBP < : 90 hydralazine 25 mg Tablet 25 mg PO TID Qty: 90 0RF Protocol: Hold for SBP< HOLD for SBP < : 90 sodium bicarbonate 650 mg Tablet 650 mg PO BID Qty: 60 0RF amlodipine 10 mg Tablet 10 mg PO DAILY Qty: 30 0RF Protocol: Hold for SBP< HOLD for SBP < : 90 oxycodone-acetaminophen 5-325 mg tablet 1 tab PO Q8H PRN (Reason: Pain, Moderate) Qty: 10 0RF
[2022-12-27 11:07] LABS: Alanine Aminotransferase 9 U/L (0-31); Albumin Level 3.5 g/dL (3.5-5.0); Alkaline Phosphatase 133 U/L (39-117); Anion Gap 18 (12-20); Aspartate Amino Transferase 15 U/L (5-31); B Type Natriuretic Peptide 31 pg/mL (<100); Bilirubin Direct < 0.2 mg/dL (0.0-0.5); Bilirubin Total 0.3 mg/dL (0.0-1.0); Blood Urea Nitrogen 66 mg/dL (9-16); Carbon Dioxide 14 mmol/L (22-29); Chloride 111 mmol/L (96-108); Creatinine Clr Calc Pharmacy 5.6; Estimated Glomerular Filt Rate 7; Glucose Random 91 mg/dL (60-115); Potassium 5.2 mmol/L (3.3-5.1); Sodium 138 mmol/L (135-145); Total Protein 7.1 g/dL (6.5-8.0)
[2022-12-27 11:10] LABS: Troponin-I High Sensitivity 9.4 ng/L (<3.5-17.0)
--- NOTE | 2022-12-27 11:46 | PHA.MEDREC ---
Pharmacy Consult ? Medication Reconciliation Pharmacy has completed the medication reconciliation.
[2022-12-27] MEDS: ondansetron HCL 4 MG/2 ML VIAL IVPUSH (11:48)
[2022-12-27 11:49] LABS: COVID-19 Test Negative (Negative); IDNOW Serial# 55D5AD1C
[2022-12-27 11:50] LABS: Lipase 62 U/L (8-78); Magnesium 1.8 mg/dL (1.6-2.6)
[2022-12-27 11:57] LABS: INTERNATIONAL NORM RATIO 0.9 (0.9-1.1); Prothrombin Time 10.6 SEC (10.0-13.1)
[2022-12-27] MEDS: Sodium Zirconium Cyclosilicate 10 GM POWD.PACK PO (13:02)
--- NOTE | 2022-12-27 14:48 | MHC.EDTECH ---
@[phone] Hidalgo's office per request of TUAN Ruiz. Gave patient demographics to the individual on the answering service. The individual stated they would page Dr. Hidalgo. They took a call back number.
[2022-12-27 15:02] LABS: Appearance Urine Clear; Color Urine Yellow; Glucose Urine UA Negative (Negative); Leukocyte Esterase Urine Negative (Negative); Nitrite Urine Negative (Negative); PH 6.5 (5.0-9.0); UMIC TRIGGER UACC YES; Urine Blood Negative (Negative); Urine Ketones Negative (Negative); Urine Protein 100 (2+) mg/dL (Neg-Trace)
[2022-12-27 15:07] LABS: Bacteria Urine None Seen (None Seen); Hyaline Casts Urine 0-2 /LPF (0-2); RBC Urine 0-2 /HPF (0-2); Squamous Epithelial Cell Urine 0-2 /HPF (0-2); WBC Urine 0-5 /HPF (0-5)
--- NOTE | 2022-12-27 16:47 | PC.NURSE ---
PT SEEN BY DR. HOPKINS. PT WILL BE ADMITTED AND HAVVI[facility] PERMACATH PLACED TO START HD. BOTH PT AND HER DAUGHTER ARE AWARE OF PLAN.
[2022-12-27 18:40] LABS: VBG Base Excess -11.3 mmol/L; VBG HCO3 14 mmol/L (22-26); VBG pCO2 32 mmHg; VBG pH 7.25 (7.32-7.43); VBG pO2 44 mmHg
[2022-12-27 18:49] LABS: Venous Blood Gas Refer to POC result
--- NOTE | 2022-12-27 18:56 | MHC.EDTECH ---
PT WAS INCONIENT OF URINE ,CARE GIVEN LINEN CHANGE ,VITALS SIGN TAKEN .
[2022-12-27 19:00] LABS: Anion Gap 15 (12-20); Blood Urea Nitrogen 61 mg/dL (9-16); Calcium 7.8 mg/dL (8.4-10.2); Carbon Dioxide 17 mmol/L (22-29); Chloride 112 mmol/L (96-108); Creatinine Clr Calc Pharmacy 6.1; Estimated Glomerular Filt Rate 8; Glucose Random 83 mg/dL (60-115); Potassium 4.5 mmol/L (3.3-5.1); Sodium 139 mmol/L (135-145)
--- NOTE | 2022-12-27 19:28 | PM.CCHP ---
History of Present Illness Date of Service: 12/27/22 Attending physician on admission: Johan Young Chief Complaint: FLORECITA on CKD, Hyperkalemia HPI: ?82-year-old female with underlying history of chronic kidney disease stage 4 to 5, anemia of chronic disease, chronic back pain, asthma, congestive heart failure, COPD, hypertension, GERD, hyperlipidemia, among others.? Presents to our service after being seen in the emergency room as she was advised to go there by her pattern chain builder given that outpatient laboratories have shown significant worsening of her potassium as well as renal function.? As of 12/23/2022, her potassium had been 5.4, today on arrival to the ER 5.2, with a creatinine of 6.15 and today 5.60 respectively.? ? Patient was told to come to the ER because she may need emergent dialysis.? She had been taking in sodium bicarbonate pills, while in the emergency room the remainder of her workup seemed unremarkable and recheck laboratories were done this evening showing improvement of her potassium levels now down to 4.5 and her creatinine down to 5.18.? Patient is otherwise asymptomatic.? She denies any shortness on breath, she did have some nausea, vomiting abdominal discomfort for which a CT of the abdomen pelvis was done and showed no acute findings.? Her chest x-ray shows no evidence of pulmonary congestion and her BNP is normal. ? At this point he was decided to admit the patient to the ICU given her risk of quick derangement, patient denies any headache, lightheadedness or dizziness, chest pain, palpitations, arm or jaw pain, no more shortness of breath than usual, denies leg edema, she is producing urine has no genitourinary complaints. ? Review of systems: As above, otherwise the patient denies any prior history of strokes, cold intolerance, , head trauma, no eyes, ears or nose problems, no problems swallowing or with phonation, no thyroid disease, denies any history of chest pain, palpitations, coronary disease, diarrhea, melena, hematochezia, hematemesis, hematuria, liver problems, immunocompromise state of any kind, no history of DVT or PE, all other review of systems were reviewed and they were all negative. ? Past Medical History:? As above Tibial plateau fracture right knee Osteoarthritis left knee Headaches Anxiety Depression Hiatal hernia ? Past Surgical History: Rectopexy Hysterectomy Colectomy Cholecystectomy EGD Left carotid endarterectomy Right knee ORIF R Total hip arthroplasty Breast biopsy ? Family history:? Noncontributory ? Social History:? Patient lives in an apartment.? She is an ex-smoker with a?? pack-year history, quit??? .? No alcohol consumption, admits to use of marijuana. ? CODE STATUS: FULL CODE ? Allergies: ?Codeine (rash), sulfa (hives), ibuprofen (upset stomach and rectal bleed) ? Home Medications: See Med Rec ? PHYSICAL EXAM: VS: ?165/90, 90, 16, 98.6 F, 97% room air General:? Alert oriented x3 no acute distress.? Speaking full sentences.? Speech is well articulated, thought process is coherent.? Following all commands. Skin:? Intact, no lesions, edema, erythema, clubbing or cyanosis.? No ulcers. HEENT:? Head is normocephalic, atraumatic, pupils equal round reactive to light accommodation bilaterally.? Extraocular movements appear intact.? Buccal mucosa is moist, Neck is supple without lymphadenopathy. Cardiac:? Clear S1-S2, no murmurs rubs or gallops. Pulmonary:? Clear to auscultation, no wheezes, rales or rhonchi. Abdomen:? Protuberant, positive bowel sounds in all 4 quadrants.? Soft, nontender, no rebound or guarding.? Musculoskeletal:? Moving all 4 extremities upon request a major joints, there is no crepitus or tenderness.? The strength is 5/5 bilaterally and throughout all 4 extremities.? There is no leg edema , no calf tenderness , no leg asymmetry.? Gait not assessed at this point. Neurologic:? As above, cranial nerves 2-12 are grossly intact.? No focal deficits noted. Motor strength as above.? Vascular:? 2+ pulses upper and lower extremities distally. ? SIGNIFICANT LABORATORY DATA: ?White blood cells 5.5, hemoglobin 7.7, hematocrit 25, platelets 277.? INR 0.9.? Venous blood gas pH 7.25, pCO2 32, PO2 44, HC03 14.? Sodium 139, potassium 4.5 (down from 5.4 on 12/23/2022), chloride 112, carbon dioxide 17, anion gap 15, BUN 61, creatinine 5.18 (down from 6.15 on 12/23/2022), calcium 7.8.? Troponin 9.4, BNP 31.? Urinalysis negative for infection, shows proteinuria.? COVID negative. ? REVIEW OF IMAGES: Chest x-ray IMPRESSION: ? To my view, airways patent, there is no bony abnormalities, diaphragmatic angles are well-defined.? Normal cardiac silhouette.? No evidence of infiltrates or pulmonary congestion. ? ? CT abdomen and pelvis IMPRESSION: No acute findings in the abdomen or pelvis. No inflammatory changes. Colonic diverticulosis without diverticulitis. ? EKG REVIEW: ?To my view this sinus rhythm 85 beats per minute.? There is no ST elevations, no ST depressions.? QTC 422 milliseconds No comparison. ? ASSESSMENT : 1. Acute kidney injury on chronic kidney disease stage 5 (improving) 2. Acute hyperkalemia (improved) 3. Anemia of chronic disease 4. Metabolic acidosis due to #1 5. Pseudo hypocalcemia with corrected calcium of 9 6. Proteinuria due to chronic kidney disease 7. Uncontrolled hypertension 8. Acute on Chronic pain syndrome of her left knee and low back ? PLAN OF CARE: Plan will be to admit the patient to the ICU, monitor vital signs, I's and O's, will recheck laboratories at midnight and then in the morning.? Even though initially it was thought that the patient would need emergent dialysis, a cm that her numbers are improving and she is no longer hyperkalemic, as discussed with Dr. Young at this point the patient does not seem to need emergent dialysis and it would not be ideal to place a power line for hemodialysis on this patient when she could easily be monitored and hopefully get a PermCath placement by interventional radiologist this upcoming Friday. Patient will be given a renal diet, will continue with blood pressure medications except for Lasix, she does not have any leg edema and there is no signs of failure, I am concerned this medication would make her creatinine worse.? We will avoid any other nephrotoxins;.? I discussed with the patient my inability to give her her full dose, will give her low-dose oxycodone (due to risk of retention) and will add Tylenol for pain control.? We can also give her Lidoderm patches. Continue with sodium bicarb drip, if her K goes back up will give Lokelma, recheck labs tonight and in am. ? GI PROPHYLAXIS:? Resume home oral Protonix DVT PROPHYLAXIS:? Heparin subQ ? Critical care time used for critical evaluation of this patient, diagnosis, treatment and coordination of care, review her records and documentation TOTAL CRITICAL CARE TIME 90 ?MIN . discussion and coordination with consultants, completely separate from any procedures performed. Patient's care was discussed in detail with Dr. Young.? He is aware of all the above as well as the plan of care for this patient. [facility] Past Medical History Medical History (Updated 12/28/22 @ 11:08 by Johan Young MD) FLORECITA (acute kidney injury) Anemia Anemia Anxiety and depression Asthma Back pain CHF (congestive heart failure) Chronic anemia CKD (chronic kidney disease) CKD (chronic kidney disease) stage 4, GFR 15-29 ml/min COPD (chronic obstructive pulmonary disease) GERD (gastroesophageal reflux disease) Headache Hiatal hernia Hyperkalemia Hyperlipidemia Hypertension Hypertensive urgency Metabolic acidosis Osteoarthritis Surgical History Surgical History H/O of rectopexy H/O: hysterectomy History of bowel resection History of cholecystectomy History of esophagogastroduodenoscopy (EGD) History of left-sided carotid endarterectomy History of open reduction and internal fixation (ORIF) procedure History of total right hip arthroplasty Hx of breast biopsy Hx of colonoscopy Social History Social History Household Members: Family Household Members Other:: DAUGHTER LAURECE Housing: Condominium Do you presently have visiting nurse or other home services: Yes ([facility]) Alcohol intake: unknown Patient Tobacco Use Status: Former Tobacco user Quit Date: 12 YEARS AGO Years Smoked: 20 Smoked in Last 30 Days: No e-Cigarette/Vaping Use: Never Used Second Hand Smoke Exposure: No Use of substances other than those prescribed or required for medical reasons: No Substance Use Type: Marijuana Currently Displaying Signs/Symptoms of Drug Intoxication Withdrawal: No Any prior treatment program specific to substance use: No Have you been hit, kicked, punched, or otherwise hurt by someone within the past year? If so, by whom?: No Do you feel safe in your current relationship?: No Is there a partner from a previous relationship who is making you feel unsafe now?: No Spiritual Healthcare Practices: NONE Moravian Healthcare Practices: ALEVISM Cultural Healthcare Practices: NONE Advance Directives: Yes Advance Directives Information Provided: Yes (DAUGHTER) Advance Directives on File: Yes Advance Directives Date on File: 09/04/20 Do you have thoughts of harming others: None Do you have a plan to hurt others: No Plan Recently lost weight without trying: Yes How much weight loss: 2-13 pounds Eating poorly because of decreased appetite: Yes Nutrition screen score: 4 Nutrition Risks: Anorexia Patient : No : No Poor oral hygiene: Yes ([place]) service: No Current occupational status: retired [employer] Allergies Allergy/AdvReac Type Severity Reaction Status Date / Time codeine [Codeine] Allergy Mild RASH Verified 06/19/22 14:09 Sulfa (Sulfonamide Allergy Mild HIVES Verified 06/19/22 14:09 Antibiotics) [Sulfa (Sulfonamides)] ibuprofen [From Motrin] AdvReac Mild STOMACH Verified 06/19/22 14:09 UPSET, Rectal bleeding Active Medications: Current Medications Heparin Sodium (Porcine) (Heparin Sodium,Porcine 5,000 Unit/Ml Vial) 5,000 unit SUBCUT Q8H [facility] Hydralazine HCl (Hydralazine Hcl 25 Mg Tablet) 25 mg PO TID [facility]; Protocol Sodium Bicarbonate 150 meq/ (Dextrose) 1,000 mls @ 50 mls/hr IV .Q20H [facility] Home Medications Medication Instructions Recorded Confirmed Last Taken Type albuterol sulfate 2.5 mg/3 mL 1 vial inhalation QID PRN 07/28/20 12/27/22 12/09/22 History (0.083 %) solution for nebulization Shortness Of Breath montelukast 10 mg tablet 10 mg PO BEDTIME 07/28/20 12/27/22 12/09/22 History sodium chloride 7 % for 1 vial inhalation BID 07/28/20 12/27/22 12/09/22 History nebulization albuterol sulfate 90 mcg/actuation 2 puff inhalation Q6H PRN 08/01/20 12/27/22 12/09/22 History aerosol inhaler (ProAir HFA) Shortness Of Breath cholecalciferol (vitamin D3) 50 50 mcg PO DAILY 08/01/20 12/27/22 12/27/22 History mcg (2,000 unit) tablet cyclobenzaprine 10 mg tablet 10 mg PO TID PRN Muscle Spasm 08/01/20 12/27/22 12/27/22 History ferrous sulfate 325 mg (65 mg 325 mg PO BID 08/01/20 12/27/22 12/27/22 History iron) tablet fluoxetine 40 mg capsule 40 mg PO DAILY 08/01/20 12/27/22 12/27/22 History fluticasone propionate 50 2 spray intranasal DAILY PRN Nasal 08/01/20 12/27/22 12/09/22 History mcg/actuation nasal Congestion spray,suspension (Flonase Allergy Relief) lorazepam 0.5 mg tablet 0.5 mg PO BID 08/01/20 12/27/22 12/09/22 History mirtazapine 7.5 mg tablet 7.5 mg PO BEDTIME 08/01/20 12/27/22 12/09/22 History pantoprazole 40 mg tablet,delayed 40 mg PO DAILY 08/01/20 12/27/22 12/27/22 History release atorvastatin 40 mg tablet 40 mg PO DAILY 06/19/22 12/27/22 12/27/22 History cetirizine 10 mg tablet 10 mg PO DAILY 06/19/22 12/27/22 12/27/22 History fluticasone propionate 115 2 puff inhalation BID 06/19/22 12/27/22 12/09/22 History mcg-salmeterol 21 mcg/actuation HFA inhaler (Advair HFA) latanoprost 0.005 % eye drops 1 drp ophthalmic (eye) BEDTIME 06/19/22 12/27/22 12/09/22 History sioicnwcxe-gixgffuwdcvsm-dzmlzgey 1 tab PO Q12H PRN Headache 12/09/22 12/27/22 Unknown History 50 mg-325 mg-40 mg tablet docusate sodium 100 mg capsule 200 mg PO DAILY PRN Constipation 12/09/22 12/27/22 12/27/22 History lidocaine 5 % topical ointment 1 appl topical TID PRN Knee pain 12/09/22 12/27/22 Unknown History terazosin 1 mg capsule 1 mg PO DAILY 12/09/22 12/27/22 12/27/22 History Physical Exam Vital Signs: Vital Signs: Last Vital Signs Temp 98.6 F 12/27/22 18:55 Pulse 90 12/27/22 18:55 Resp 16 12/27/22 18:55 BP 165/90 H 12/27/22 18:55 Pulse Ox 97 12/27/22 18:55 O2 Del Method 12/27/22 18:55 BMI result Body Mass Index 16.2 Results Labs 12/27/22 10:25 12/27/22 18:19 Labs: Laboratory Results - last 24 hr 12/27/22 12/27/22 12/27/22 10:25 10:25 10:25 MCV 91.6 MCH 28.2 MCHC 30.8 L RDW 13.9 Plt Count 275 D MPV 10.0 Immature Gran % (Auto) 0.7 H Neut % (Auto) 49.4 Lymph % (Auto) 35.9 Eddy % (Auto) 7.1 Eos % (Auto) 5.8 H Baso % (Auto) 1.1 Lymph # (Auto) 2.0 Eddy # (Auto) 0.4 Eos # (Auto) 0.3 Baso # (Auto) 0.1 Abs Immat Gran (auto) 0.04 H Absolute Neuts (auto) 2.7 Absolute Nucleated RBC 0.000 Nucleated RBC % (auto) 0.0 PT INR VBG pH VBG pCO2 VBG pO2 VBG HCO3 VBG O2 Saturation VBG Base Excess Anion Gap 18 Estim Creat Clear Calc 5.6 Estimated GFR 7 Random Glucose 91 Calcium 8.0 L Magnesium 1.8 Total Bilirubin 0.3 Direct Bilirubin < 0.2 AST 15 ALT 9 Alkaline Phosphatase 133 H Troponin I High Sens 9.4 D B-Natriuretic Peptide Total Protein 7.1 Albumin 3.5 Lipase 62 Urine Color Urine Appearance Urine pH Ur Specific [place] Urine Protein Urine Glucose (UA) Urine Ketones Urine Blood Urine Nitrite Ur Leukocyte Esterase Urine RBC Urine WBC Ur Squamous Epith Cells Urine Bacteria Hyaline Casts COVID-19 ([facility]) COVID-19 Clin Com 12/27/22 12/27/22 12/27/22 10:25 11:27 11:31 MCV MCH MCHC RDW Plt Count MPV Immature Gran % (Auto) Neut % (Auto) Lymph % (Auto) Eddy % (Auto) Eos % (Auto) Baso % (Auto) Lymph # (Auto) Eddy # (Auto) Eos # (Auto) Baso # (Auto) Abs Immat Gran (auto) Absolute Neuts (auto) Absolute Nucleated RBC Nucleated RBC % (auto) PT 10.6 INR 0.9 VBG pH VBG pCO2 VBG pO2 VBG HCO3 VBG O2 Saturation VBG Base Excess Anion Gap Estim Creat Clear Calc Estimated GFR Random Glucose Calcium Magnesium Total Bilirubin Direct Bilirubin AST ALT Alkaline Phosphatase Troponin I High Sens B-Natriuretic Peptide 31 Total Protein Albumin Lipase Urine Color Urine Appearance Urine pH Ur Specific [place] Urine Protein Urine Glucose (UA) Urine Ketones Urine Blood Urine Nitrite Ur Leukocyte Esterase Urine RBC Urine WBC Ur Squamous Epith Cells Urine Bacteria Hyaline Casts COVID-19 ([facility]) Negative COVID-19 Clin Com See Note 12/27/22 12/27/22 12/27/22 14:43 18:19 18:25 MCV MCH MCHC RDW Plt Count MPV Immature Gran % (Auto) Neut % (Auto) Lymph % (Auto) Eddy % (Auto) Eos % (Auto) Baso % (Auto) Lymph # (Auto) Eddy # (Auto) Eos # (Auto) Baso # (Auto) Abs Immat Gran (auto) Absolute Neuts (auto) Absolute Nucleated RBC Nucleated RBC % (auto) PT INR VBG pH 7.25 L VBG pCO2 32 VBG pO2 44 VBG HCO3 14 L VBG O2 Saturation 73.0 VBG Base Excess -11.3 Anion Gap 15 Estim Creat Clear Calc 6.1 Estimated GFR 8 Random Glucose 83 Calcium 7.8 L Magnesium Total Bilirubin Direct Bilirubin AST ALT Alkaline Phosphatase Troponin I High Sens B-Natriuretic Peptide Total Protein Albumin Lipase Urine Color Yellow Urine Appearance Clear Urine pH 6.5 Ur Specific [place] 1.010 Urine Protein 100 (2+) H Urine Glucose (UA) Negative Urine Ketones Negative Urine Blood Negative Urine Nitrite Negative Ur Leukocyte Esterase Negative Urine RBC 0-2 Urine WBC 0-5 Ur Squamous Epith Cells 0-2 Urine Bacteria None Seen Hyaline Casts 0-2 COVID-19 ([facility]) COVID-19 Clin Com Imaging Radiologist's Impressions: Impressions Chest X-Ray 12/27/22 12:03 IMPRESSION: No acute cardiopulmonary process. Abdomen/Pelvis CT 12/27/22 12:31 IMPRESSION: No acute findings in the abdomen or pelvis. No inflammatory changes. Colonic diverticulosis without diverticulitis. Fleischner guidelines were followed. Assessment and Plan Time Spent With Patient Time: Total time managing care of this patient today ____ minutes.
[2022-12-27] MEDS: Sodium Bicarbonate 8.4% 150 MEQ in Dextrose 5 % 850 ML 50 MEQ IV (20:13)
[2022-12-27] MEDS: hydrALAZINE HCl 25 MG TABLET PO (20:18)
[2022-12-27] MEDS: Heparin Sodium,Porcine 5,000 UNIT/ML VIAL 5000 UNIT SUBCUT (20:21)
[2022-12-27] MEDS: Ondansetron ODT 4 MG TAB.RAPDIS TRANSLINGU (20:22)
[2022-12-27] MEDS: Latanoprost 0.005 % Ophth Sol 2.5 ML DROPS 1 DROP EYE-BOTH (20:23)
[2022-12-27] MEDS: oxyCODONE HCl Immed Release 5 MG TABLET PO (20:34)
[2022-12-27] MEDS: Montelukast Sodium 10 MG TABLET PO (20:37)
[2022-12-27] MEDS: hydrALAZINE HCl 20 MG/ML VIAL 5 MG IVPUSH (21:57)
--- NOTE | 2022-12-27 22:55 | PC.NURSE ---
PT TO ICU FROM ER AT 1999. PT A&O X3. IN NO ACUTE DISTRESS BUT C/O BILAT ABD AND SIDE PAIN AND LOW MID BACK PAIN. PT WAS VERY ANXIOUS ABOUT THE PAIN AND WAS GETTING NAUSEAUS. SHE RECEIVED ZOFRAN SUBLINGUAL WITH OXYCODONE 5 MG AND TYLENOL 975 MG PO WITH SOME EFFECT ON PAIN BUT GOOD EFFECT ON ANXIETY. BP WAS HIGH, 178/94, 185/91. PT RECEIVED HYDRALIZINE PO HER REGULARLY SCHEDULED PM DOSE BUT THEN REQUIRED 5 MG IV WITH GOOD EFFECT WITH BP 148/67. MONITOR SHOWS NSR, RATE 80'S-90'S, NO ECTOPY. PT USED BEDPAN TO VOID 400 ML CLEAR NATE URINE.
[2022-12-28] VITALS (14 sets, daily range): BP systolic 100–135; BP diastolic 58–76; PULSE 87–99; RESP 12–23; TEMP 36.4–37.2; O2SAT 91–96
[2022-12-28 00:02] LABS: Anion Gap 17 (12-20); Blood Urea Nitrogen 64 mg/dL (9-16); Calcium 7.5 mg/dL (8.4-10.2); Carbon Dioxide 16 mmol/L (22-29); Chloride 111 mmol/L (96-108); Estimated Glomerular Filt Rate 8; Glucose Random 129 mg/dL (60-115); Sodium 139 mmol/L (135-145)
[2022-12-28] MEDS: Melatonin 3 MG TABLET 6 MG PO (00:41)
[2022-12-28] MEDS: Lidocaine 4 % Patch ADH..PATCH 2 PATCH TRANSDERMA (00:45)
[2022-12-28] MEDS: Sodium Zirconium Cyclosilicate 10 GM POWD.PACK PO (01:37)
--- NOTE | 2022-12-28 01:46 | PC.NURSE ---
PT COMPLAINING OF LOW BACK PAIN AND BILAT HIP/SIDE PAIN ALL AROUND TO LOW ABD. SHE RECEIVED OXYCODONE 5 MG PO WITH TYLENOL 975 MG PO AT 2030 WITH SOME EFFECT. WAS VERY ANXIOUS ABOUT THE PAIN AND KEPT ASKING FOR MORE MEDICINE. IT HAD BEEN EXPLAINED TO HER SEVERAL TIMES THAT THE PROVIDER CANNOT GIVE HER MORE MEDICINE DUE TO HER KIDNEY FAILURE. AFTER THE ABOVE MEDICINE, SHE RELAXED AND WAS LESS ANXIOUS. NOW SHE IS COMPLAINING OF THE SAME PAIN LOW BACK ALL AROUND TO LOW ABD. OXYCODONE NOT DUE UNTIL 0430(Q8HR). PT GIVEN LOW BACK MASSAGE LIDOCAINE PATCHES X2 APPLIED TO LOW BACK RIGHT AND LEFT SIDES. SHE CONTINUED TO C/O PAIN. ASKING TO SPEAK TO PROVIDER WHO TALKED TO PT AND AGAIN EXPLAINED THE CONCERN FOR HER KIDNEYS. PT GIVEN WARM PACK TO LOW BACK AND REPOSITIONED ON LEFT SIDE.
[2022-12-28] MEDS: Heparin Sodium,Porcine 5,000 UNIT/ML VIAL 5000 UNIT SUBCUT ×3 (03:14→16:48)
[2022-12-28] MEDS: oxyCODONE HCl Immed Release 5 MG TABLET PO ×2 (03:14→16:48)
--- NOTE | 2022-12-28 03:22 | PC.NURSE ---
PT NOT SLEEPING DESPITE RECEIVING MELATONIN. CONTINUES TO RING CALL BED SEVERAL TIMES AND EACH TIME ASKING FOR PAIN SHOT. SPOKE TO PROVIDER CANDICE ALVES PA-C REGARDING PT'S PAIN. THERE IS A CONCERN FOR HER KIDNEYS AND THIS WAS EXPLAINED TO PT SEVERAL TIMES BY THIS RN AND BY THE PROVIDER. PT STATES SHE UNDERSTANDS BUT STILL ASKING FOR PAIN MED. THE ORDER WAS CHANGED FROM Q8HR TO Q6HR FOR OXYCODONE 5 MG PO AND PT RECEIVED A DOSE AT 0315. PT REPOSITIONED TO MAXIMIZE COMFORT.
[2022-12-28 05:16] LABS: MANUAL DIFF FLAG NO
[2022-12-28 05:18] LABS: Basophils Percent Auto 0.6 % (0-2); Eosinophils Absolute Auto 0.3 X10*3/uL (0.0-0.4); Eosinophils Percent Auto 4.3 % (0-4); Hemoglobin 7.4 g/dl (12.0-16.0); Imm Gran Abs Auto 0.04 X10*3/uL (0.00-0.03); Imm Gran Pct Auto 0.6 % (0.0-0.4); Lymphocytes Absolute Auto 1.8 X10*3/uL (1.2-4.9); Lymphocytes Percent Auto 29.4 % (20-40); Mean Corpuscular HGB Conc 32.2 g/dl (31.0-35.0); Mean Corpuscular Hemoglobin 28.7 pg (27.0-33.0); Mean Corpuscular Volume 89.1 fL (80.0-98.0); Mean Platelet Volume 10.2 fL (9.4-12.3); Monocytes Absolute Auto 0.5 X10*3/uL (0.1-1.2); Monocytes Percent Auto 7.5 % (2-11); Neutrophils Absolute Auto 3.6 x10*3/uL (2.0-8.3); Neutrophils Percent Auto 57.6 % (45-73); Platelet Count 264 X10*3/uL (160-400); Red Blood Count 2.58 X10*6/uL (4.20-5.50); Red Cell Distribution Width 13.7 % (11.0-16.0); White Blood Count 6.2 X10*3/uL (4.8-10.8)
[2022-12-28 05:29] LABS: VBG HCO3 17 mmol/L (22-26); VBG pCO2 30 mmHg; VBG pH 7.36 (7.32-7.43); VBG pO2 36 mmHg
[2022-12-28 05:30] LABS: Venous Blood Gas Refer to POC result
[2022-12-28 05:37] LABS: Albumin Level 3.1 g/dL (3.5-5.0); Anion Gap 18 (12-20); Blood Urea Nitrogen 62 mg/dL (9-16); Calcium 7.5 mg/dL (8.4-10.2); Carbon Dioxide 17 mmol/L (22-29); Chloride 110 mmol/L (96-108); Estimated Glomerular Filt Rate 8; Glucose Random 89 mg/dL (60-115); Magnesium 1.7 mg/dL (1.6-2.6); Phosphorus 5.2 mg/dL (2.7-4.5); Potassium 4.1 mmol/L (3.3-5.1); Sodium 141 mmol/L (135-145)
--- NOTE | 2022-12-28 06:01 | PC.NURSE ---
PT ABLE TO FALL ASLEEP AFTER RECEIVING OXYCODONE 5 MG PO AT 0315 AND HAS AWOKEN BRIEFLY BUT FELL BACK ASLEEP QUICKLY. NO RESP DIFFICULTY. MONITOR CONTINUES NSR, 80-90'S, NO ECTOPY. BP STABLE, PRESENTLY 117/67. HAS VOIDED A TOTAL OF 650 ML ON THE BEDPAN, 2 EPISODES.
[2022-12-28] MEDS: Omeprazole 20 MG CAPSULE.DR PO (06:33)
[2022-12-28] MEDS: FLUoxetine HCl 20 MG CAPSULE 40 MG PO (07:48)
[2022-12-28] MEDS: amLODIPine Besylate 10 MG TABLET PO (07:49)
[2022-12-28] MEDS: hydrALAZINE HCl 25 MG TABLET PO ×3 (07:49→20:22)
--- NOTE | 2022-12-28 11:06 | P.PNCC_ITS ---
Subjective Subjective Date of Service: 12/28/22 Interval History: 82-year-old lady with underlying CKD, CHF, COPD, hypertension admitted on 12/27/2022 with worsening uremia, acute on chronic kidney injury, and hyperkalemia. Patient treated with Lokelma and IV bicarbonate. She maintained adequate urine output. Her potassium has improved. Nephrology evaluation was requested. No events overnight. Critical Care Time (minutes): 0 Physical Exam Vital Signs: Vital Signs: Last Vital Signs Temp 97.5 F 12/28/22 08:00 Pulse 92 12/28/22 10:00 Resp 20 12/28/22 10:00 BP 125/58 L 12/28/22 10:00 Pulse Ox 94 12/28/22 10:00 O2 Del Method 12/28/22 10:00 BMI result Body Mass Index 15.7 Const: General: no acute distress, alert and awake Eyes: Sclerae: sclerae normal EOM: EOMs intact bilaterally Neck: Neck: Yes no lymphadenopathy, Yes trachea midline and Yes supple Resp: Effort & Inspection: normal respiratory effort and no respiratory distress Auscultation: clear to auscultation bilaterally Cardio: Rate: regular rate Rhythm: regular rhythm Heart sounds: no gallops, no murmurs and no rubs GI: Palpation (GI): Soft to palpation and Other GI palpation findings present ( Nontender) Auscultation: normal bowel sounds Extrem: General: Yes no pedal edema, No clubbing and No cyanosis Objective Data Labs 12/28/22 05:11 12/28/22 05:11 Labs: Laboratory Results - last 24 hr 12/27/22 12/27/22 12/27/22 10:25 10:25 10:25 WBC RBC Hgb Hct MCV MCH MCHC RDW Plt Count MPV Immature Gran % (Auto) Neut % (Auto) Lymph % (Auto) [place] % (Auto) Eos % (Auto) Baso % (Auto) Lymph # (Auto) [place] # (Auto) Eos # (Auto) Baso # (Auto) Abs Immat Gran (auto) Absolute Neuts (auto) Absolute Nucleated RBC Nucleated RBC % (auto) PT INR VBG pH VBG pCO2 VBG pO2 VBG HCO3 VBG O2 Saturation VBG Base Excess Sodium 138 Potassium 5.2 H Chloride 111 H Carbon Dioxide 14 L Anion Gap 18 BUN 66 H Creatinine 5.60 H* Estim Creat Clear Calc 5.6 Estimated GFR 7 Random Glucose 91 Calcium 8.0 L Phosphorus Magnesium 1.8 Total Bilirubin 0.3 Direct Bilirubin < 0.2 AST 15 ALT 9 Alkaline Phosphatase 133 H Troponin I High Sens 9.4 D B-Natriuretic Peptide 31 Total Protein 7.1 Albumin 3.5 Lipase 62 Urine Color Urine Appearance Urine pH Ur Specific [place] Urine Protein Urine Glucose (UA) Urine Ketones Urine Blood Urine Nitrite Ur Leukocyte Esterase Urine RBC Urine WBC Ur Squamous Epith Cells Urine Bacteria Hyaline Casts COVID-19 ([facility]) COVID-19 Clin Com 12/27/22 12/27/22 12/27/22 11:27 11:31 14:43 WBC RBC Hgb Hct MCV MCH MCHC RDW Plt Count MPV Immature Gran % (Auto) Neut % (Auto) Lymph % (Auto) [place] % (Auto) Eos % (Auto) Baso % (Auto) Lymph # (Auto) [place] # (Auto) Eos # (Auto) Baso # (Auto) Abs Immat Gran (auto) Absolute Neuts (auto) Absolute Nucleated RBC Nucleated RBC % (auto) PT 10.6 INR 0.9 VBG pH VBG pCO2 VBG pO2 VBG HCO3 VBG O2 Saturation VBG Base Excess Sodium Potassium Chloride Carbon Dioxide Anion Gap BUN Creatinine Estim Creat Clear Calc Estimated GFR Random Glucose Calcium Phosphorus Magnesium Total Bilirubin Direct Bilirubin AST ALT Alkaline Phosphatase Troponin I High Sens B-Natriuretic Peptide Total Protein Albumin Lipase Urine Color Yellow Urine Appearance Clear Urine pH 6.5 Ur Specific [place] 1.010 Urine Protein 100 (2+) H Urine Glucose (UA) Negative Urine Ketones Negative Urine Blood Negative Urine Nitrite Negative Ur Leukocyte Esterase Negative Urine RBC 0-2 Urine WBC 0-5 Ur Squamous Epith Cells 0-2 Urine Bacteria None Seen Hyaline Casts 0-2 COVID-19 ([facility]) Negative COVID-19 Clin Com See Note 12/27/22 12/27/22 12/27/22 18:19 18:25 23:41 WBC RBC Hgb Hct MCV MCH MCHC RDW Plt Count MPV Immature Gran % (Auto) Neut % (Auto) Lymph % (Auto) [place] % (Auto) Eos % (Auto) Baso % (Auto) Lymph # (Auto) [place] # (Auto) Eos # (Auto) Baso # (Auto) Abs Immat Gran (auto) Absolute Neuts (auto) Absolute Nucleated RBC Nucleated RBC % (auto) PT INR VBG pH 7.25 L VBG pCO2 32 VBG pO2 44 VBG HCO3 14 L VBG O2 Saturation 73.0 VBG Base Excess -11.3 Sodium 139 139 Potassium 4.5 5.0 Chloride 112 H 111 H Carbon Dioxide 17 L 16 L Anion Gap 15 17 BUN 61 H 64 H Creatinine 5.18 H* 5.10 H* Estim Creat Clear Calc 6.1 6.0 Estimated GFR 8 8 Random Glucose 83 129 H Calcium 7.8 L 7.5 L Phosphorus Magnesium Total Bilirubin Direct Bilirubin AST ALT Alkaline Phosphatase Troponin I High Sens B-Natriuretic Peptide Total Protein Albumin Lipase Urine Color Urine Appearance Urine pH Ur Specific [place] Urine Protein Urine Glucose (UA) Urine Ketones Urine Blood Urine Nitrite Ur Leukocyte Esterase Urine RBC Urine WBC Ur Squamous Epith Cells Urine Bacteria Hyaline Casts COVID-19 ([facility]) COVID-19 Clin Com 12/28/22 12/28/22 12/28/22 05:11 05:11 05:21 WBC 6.2 RBC 2.58 L Hgb 7.4 L Hct 23.0 L MCV 89.1 MCH 28.7 MCHC 32.2 RDW 13.7 Plt Count 264 MPV 10.2 Immature Gran % (Auto) 0.6 H Neut % (Auto) 57.6 Lymph % (Auto) 29.4 [place] % (Auto) 7.5 Eos % (Auto) 4.3 H Baso % (Auto) 0.6 Lymph # (Auto) 1.8 [place] # (Auto) 0.5 Eos # (Auto) 0.3 Baso # (Auto) 0.0 Abs Immat Gran (auto) 0.04 H Absolute Neuts (auto) 3.6 Absolute Nucleated RBC 0.000 Nucleated RBC % (auto) 0.0 PT INR VBG pH 7.36 VBG pCO2 30 VBG pO2 36 VBG HCO3 17 L VBG O2 Saturation 64.0 VBG Base Excess -7.0 Sodium 141 Potassium 4.1 Chloride 110 H Carbon Dioxide 17 L Anion Gap 18 BUN 62 H Creatinine 5.16 H* Estim Creat Clear Calc 6.0 Estimated GFR 8 Random Glucose 89 Calcium 7.5 L Phosphorus 5.2 H Magnesium 1.7 Total Bilirubin Direct Bilirubin AST ALT Alkaline Phosphatase Troponin I High Sens B-Natriuretic Peptide Total Protein Albumin 3.1 L Lipase Urine Color Urine Appearance Urine pH Ur Specific [place] Urine Protein Urine Glucose (UA) Urine Ketones Urine Blood Urine Nitrite Ur Leukocyte Esterase Urine RBC Urine WBC Ur Squamous Epith Cells Urine Bacteria Hyaline Casts COVID-19 ([facility]) COVID-19 Clin Com Progress Note: A&P Assessment and plan (1) Acute kidney injury superimposed on CKD: Status: Acute (2) Hypertension: Status: Acute Plan Assessment: 82-year-old lady admitted with acute on chronic kidney failure with hyperkalemia and metabolic acidosis, now improving. Plan: Neuro: No acute issues. Cardiac: No acute issues. Underlying congestive heart failure and hyper tension. Pulmonary: No acute issues. Underlying COPD. Renal: Acute on chronic renal failure with hyperkalemia and metabolic acidosis. Potassium improved with improvement in acidosis and on Lokelma. Reasonable urine output. Nephrology service care appreciated. Continue to monitor electrolytes. Plan is for tunneled hemodialysis catheter on 12/30/2022. Endo: No acute issues. GI: No acute issues. ID: No acute issues Heme/Onc: No acute issues. Psych: No acute issues. Miscellaneous: No acute issues. Prophylaxis: Heparin Diet: Low-sodium/low potassium At this time patient is stable for transfer to [facility]. Transfer discussed with Dr. Del Zamora Stroke Does the patient have a stroke diagnosis?: No VTE Prior VTE?: No VTE Risk Level:: Medical - moderate - high VTE Device Contraindication: Treatment Not Indicated VTE Drug Contraindication: N/A - Med Ordered
[2022-12-28 12:39] LABS: Anion Gap 17 (12-20); Blood Urea Nitrogen 60 mg/dL (9-16); Calcium 7.2 mg/dL (8.4-10.2); Carbon Dioxide 18 mmol/L (22-29); Chloride 108 mmol/L (96-108); Creatinine Clr Calc Pharmacy 6.2; Estimated Glomerular Filt Rate 8; Glucose Random 90 mg/dL (60-115); Potassium 4.2 mmol/L (3.3-5.1); Sodium 139 mmol/L (135-145)
--- NOTE | 2022-12-28 14:33 | MHC.CM.PN ---
IMM 12/28/22 DELIVERED TO BEDSIDE, EMR REVIEWED, PT A&O, REPORTS SHE LIVES W/HER DTR [place], PT IS INDEP W/ADL'S/SHOWERING, REPORTS SHE HAS A CANE/WALKER/SHOWER MARTHA, BEDSIDE COMMODE AND GRAB BARS IN BR, PT ALSO REPORTS SHE IS ACTIVE W/[facility] W/SN/PT, PT REPORTS GOAL IS TO RETURN HOME W/RESUM OF SERVICES. PT VERIFIES PCP IS MARILU CASTELAN X3 AND HP IS DTR [place] AND ON FILE FROM PREVIOUS ADMIT. D/C PLAN: HOME W/RESUMP OF [facility] W/FAMILY FOR TRANSPORT
[2022-12-28] MEDS: Sodium Bicarbonate 8.4% 150 MEQ in Dextrose 5 % 850 ML 50 MEQ IV (16:48)
[2022-12-28] MEDS: Montelukast Sodium 10 MG TABLET PO (20:22)
[2022-12-28] MEDS: Acetaminophen 325 MG TABLET 975 MG PO (20:23)
[2022-12-28 20:53] LABS: Anion Gap 14 (12-20); Blood Urea Nitrogen 61 mg/dL (9-16); Calcium 7.3 mg/dL (8.4-10.2); Carbon Dioxide 24 mmol/L (22-29); Chloride 105 mmol/L (96-108); Creatinine Clr Calc Pharmacy 6.3; Estimated Glomerular Filt Rate 9; Glucose Random 101 mg/dL (60-115); Potassium 4.3 mmol/L (3.3-5.1); Sodium 139 mmol/L (135-145)
[2022-12-29] VITALS (10 sets, daily range): BP systolic 125–195; BP diastolic 68–88; PULSE 80–99; RESP 14–18; TEMP 36.2–37.2; O2SAT 90–97; BMI 17.4
[2022-12-29] MEDS: oxyCODONE HCl Immed Release 5 MG TABLET PO ×3 (00:49→14:43)
[2022-12-29] MEDS: Heparin Sodium,Porcine 5,000 UNIT/ML VIAL 5000 UNIT SUBCUT ×2 (00:50→08:37)
--- NOTE | 2022-12-29 01:15 | CONS_ITS ---
DATE OF SERVICE: 12/28/2022 HISTORY OF PRESENT ILLNESS: I was asked to see patient to assist in evaluation and management of patient's acute on advanced chronic kidney disease with uremic symptoms for which I contacted the patient's daughter and had her sent into the emergency room. HISTORY OF PRESENT ILLNESS: In summary, she is an 82-year-old female, well known to my partner, Dr. Frederick with advanced chronic kidney disease and recently hospitalized last month with an episode of severe renal failure on top of chronic kidney disease. There were some issues with severe hypertension and not taking some blood pressure medications. Early in November, she was restarted on blood pressure medications and was noted to have a creatinine that was now in the mid 5 range whereas previously months ago her baseline creatinine seems to be in the mid 2 range. Since being discharged home, she has been doing poorly with some uremic symptoms. I saw her in the office. We gave her Procrit injection and the patient and daughter wanted to try and avoid going to the hospital. However, when I contacted them the next day, the daughter said she was doing poorly, so I told her just to bring her back to the hospital. Her main complaint is some back and belly pain and wants some pain medications. PAST MEDICAL HISTORY: Notable for hypertension, poorly controlled; advanced chronic kidney disease that now appears to be ESRD. She has small echogenic kidneys on ultrasound. Degenerative joint disease, anxiety, depression, hiatal hernia are all listed as chronic medical problems. There is also mention made of congestive heart failure, COPD, GERD, hyperlipidemia. MEDICATIONS: Her medications on admission are noted in the admitting notes. SOCIAL HISTORY: She is nonsmoker, nondrinker. No illicit drug use. REVIEW OF SYSTEMS: As above noted. FAMILY HISTORY: Noncontributory PHYSICAL EXAMINATION: VITAL SIGNS: Blood pressure 120/70, heart rate in the 80s. HEAD: Atraumatic and normocephalic. NECK: Supple. Mucous membranes are moist. LUNGS: Breath sounds bilaterally. CARDIAC: Regular rate and rhythm without rub. ABDOMEN: Soft, nontender with good bowel sounds. No CVA tenderness. EXTREMITIES: Show no edema. She does have asterixis on exam. LABORATORY DATA: Show hemoglobin 7.4, hematocrit 23, white blood cell count 6.2, platelet count 264. Sodium 139, potassium 4.2, chloride 108, bicarb 18, BUN 60, creatinine 5. Her creatinines have been as high as 6.15 in November. Calcium 7.2, albumin 3.1. Previous ultrasound from last month showed right kidney to be 7.9 cm, left to be 8.7 cm. Both kidneys were increased echogenic. IMPRESSION: 82-YEAR-OLD WITH ADVANCED CHRONIC KIDNEY DISEASE AND UREMIC SYMPTOMS, HYPERKALEMIA, AND DEPRESSED SERUM BICARB. 1. Advanced chronic kidney disease. Given her age and low body mass even with a creatinine of 5, she appears to be end-stage renal disease. We will see about placing a Perm-A-Cath early next week and starting her on dialysis. Most likely her end-stage renal disease is from hypertensive nephrosclerosis. 2. Hyperkalemia. This is improved with getting some bicarb. 3. Anemia. She continues on Procrit and iron. 4. 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 We will continue to track her phosphorus and intact PTH and treat accordingly. RECOMMENDATIONS: 1. At this time include protect her nondominant arm for future AV fistula, but to place a Perm-A-Cath early next week and starting on dialysis. Avoid nephrotoxins. 2. We will follow the patient. MD SOUMYA Ferguson/JEAN PAUL / [phone]
[2022-12-29] MEDS: Omeprazole 20 MG CAPSULE.DR PO (05:44)
[2022-12-29 08:24] LABS: Hematocrit 22.2 % (37.0-47.0); Hemoglobin 7.3 g/dl (12.0-16.0); Mean Corpuscular HGB Conc 32.9 g/dl (31.0-35.0); Mean Corpuscular Hemoglobin 29.3 pg (27.0-33.0); Mean Corpuscular Volume 89.2 fL (80.0-98.0); Mean Platelet Volume 10.4 fL (9.4-12.3); NRBC Pct Auto 0.6 /100WBC (0.0-0.2); Platelet Count 265 X10*3/uL (160-400); Red Blood Count 2.49 X10*6/uL (4.20-5.50); Red Cell Distribution Width 13.3 % (11.0-16.0); White Blood Count 5.4 X10*3/uL (4.8-10.8)
[2022-12-29] MEDS: Lidocaine 4 % Patch ADH..PATCH 2 PATCH TRANSDERMA (08:35)
[2022-12-29] MEDS: amLODIPine Besylate 10 MG TABLET PO (08:36)
[2022-12-29] MEDS: hydrALAZINE HCl 25 MG TABLET PO ×3 (08:36→19:59)
[2022-12-29] MEDS: FLUoxetine HCl 20 MG CAPSULE 40 MG PO (08:36)
[2022-12-29 08:50] LABS: Anion Gap 14 (12-20); Blood Urea Nitrogen 55 mg/dL (9-16); Calcium 7.4 mg/dL (8.4-10.2); Carbon Dioxide 28 mmol/L (22-29); Chloride 102 mmol/L (96-108); Creatinine Clr Calc Pharmacy 7.6; Estimated Glomerular Filt Rate 9; Glucose Random 97 mg/dL (60-115); Potassium 4.3 mmol/L (3.3-5.1); Sodium 140 mmol/L (135-145)
--- NOTE | 2022-12-29 09:58 | P.PNIM_ITS ---
Subjective Subjective Date of Service: 12/29/22 Interval History: weakness Physical Exam Vital Signs: Vital Signs: Last Vital Signs Temp 98.1 F 12/29/22 07:43 Pulse 80 12/29/22 07:43 Resp 18 12/29/22 07:43 BP 162/76 H 12/29/22 08:44 Pulse Ox 95 12/29/22 07:43 O2 Del Method 12/29/22 07:43 BMI result Body Mass Index 17.4 General: AO X 3, no acute distress Resp: CTA bilateral, no accessory muscles used CVS: S1,S2,RRR GI: soft, non tender, non distended Neuro: motor grossly intact, alert Psych: appropriate affect, appropriate insight some asterixis Objective Data Active Medications Acetaminophen (Acetaminophen 325 Mg Tablet) 975 mg PO Q8H PRN PRN Reason: Pain, Mild (Pain Scale 1-3) Last Admin: 12/28/22 20:23 Dose: 975 mg Documented By: FELICE Albuterol Sulfate (Albuterol Sulfate (0.083%) 2.5 Mg/3 Ml Vial.Neb) 2.5 mg INHALE QID PRN PRN Reason: Shortness Of Breath Amlodipine Besylate (Amlodipine Besylate 10 Mg Tablet) 10 mg PO DAILY [facility]; Protocol Last Admin: 12/29/22 08:36 Dose: 10 mg Documented By: FABIOLA Fluoxetine HCl (Fluoxetine Hcl 20 Mg Capsule) 40 mg PO DAILY [facility] Last Admin: 12/29/22 08:36 Dose: 40 mg Documented By: FABIOLA Heparin Sodium (Porcine) (Heparin Sodium,Porcine 5,000 Unit/Ml Vial) 5,000 unit SUBCUT Q8H [facility] Last Admin: 12/29/22 08:37 Dose: 5,000 unit Documented By: FABIOLA Hydralazine HCl (Hydralazine Hcl 25 Mg Tablet) 25 mg PO TID [facility]; Protocol Last Admin: 12/29/22 08:36 Dose: 25 mg Documented By: FABIOLA Sodium Bicarbonate 150 meq/ (Dextrose) 1,000 mls @ 50 mls/hr IV .Q20H [facility] Last Admin: 12/28/22 16:48 Dose: 50 mls/hr Documented By: FABIOLA Latanoprost (Latanoprost 0.005 % Ophth Paz 2.5 Ml Drops) 1 drop EYE-BOTH BEDTIME [facility] Last Admin: 12/29/22 00:55 Dose: Not Given Documented By: FELICE Non-Admin Reason: not available Lidocaine (Lidocaine 4 % Patch Adh..Patch) 2 patch TRANSDERMA DAILY [facility]; Protocol Last Admin: 12/29/22 08:35 Dose: 2 patch Documented By: FABIOLA Montelukast Sodium (Montelukast Sodium 10 Mg Tablet) 10 mg PO BEDTIME [facility] Last Admin: 12/28/22 20:22 Dose: 10 mg Documented By: FELICE Omeprazole (Omeprazole 20 Mg Capsule.Dr) 20 mg PO DAILY@0630 [facility] Last Admin: 12/29/22 05:44 Dose: 20 mg Documented By: FELICE Ondansetron HCl (Ondansetron Odt 4 Mg Tab.Rapdis) 4 mg TRANSLINGU Q8H PRN PRN Reason: Nausea Last Admin: 12/27/22 20:22 Dose: 4 mg Documented By: FELICE Oxycodone HCl (Oxycodone Hcl Immed Release 5 Mg Tablet) 5 mg PO Q6H PRN PRN Reason: Pain, Severe (Pain Scale 7-10) Last Admin: 12/29/22 08:36 Dose: 5 mg Documented By: FABIOLA Labs 12/29/22 07:54 12/29/22 07:54 Labs: Laboratory Results - last 24 hr 12/28/22 12/28/22 12/29/22 12:01 20:16 07:54 MCV 89.2 MCH 29.3 MCHC 32.9 RDW 13.3 Plt Count 265 MPV 10.4 Absolute Nucleated RBC 0.030 H Nucleated RBC % (auto) 0.6 H Anion Gap 17 14 Estim Creat Clear Calc 6.2 6.3 Estimated GFR 8 9 Random Glucose 90 101 Calcium 7.2 L 7.3 L 12/29/22 07:54 MCV MCH MCHC RDW Plt Count MPV Absolute Nucleated RBC Nucleated RBC % (auto) Anion Gap 14 Estim Creat Clear Calc 7.6 Estimated GFR 9 Random Glucose 97 Calcium 7.4 L Assessment and Plan (1) Hypertension: Status: Acute Plan 82F PMH HTN, CKD V, moderate protein calorie malnutrition, COPD, mood disorder sent to ED by nephro for worsening florecita on CKD V and hyperkalemia. was admitted to icu, given iv bicarb with resolution of hyperkalemia, now downgraded to medical floor FLORECITA on CKD V with hyperkalemia and metbaolic acidosis hyperkalemia and acidosis resolved stop bicarb iv npo after midnight for permacath and HD htn hydralazine, amlodipnie mood disorder prozac copd singular inhalers moderate protein calorie malnutrtion encourage po intake dvt prophylaxis - hep sq (currently on hold for permacath) full code reason for continued hospitalization:hd access pending, urgent HD needed for uremia Time Spent With Patient Time: Total time managing care of this patient today ____ minutes. Quality Stroke Does the patient have a stroke diagnosis?: No VTE Prior VTE?: No VTE Risk Level:: Medical - moderate - high VTE Device Contraindication: Treatment Not Indicated VTE Drug Contraindication: N/A - Med Ordered
--- NOTE | 2022-12-29 18:16 | P.PNNP_ITS ---
Subjective Subjective Date of Service: 12/29/22 Interval history: Seen and examined, events noted Physical Exam Vital Signs: Vital Signs: Last Vital Signs Temp 98.9 F 12/29/22 15:44 Pulse 89 12/29/22 15:44 Resp 14 12/29/22 15:44 BP 145/70 H 12/29/22 15:44 Pulse Ox 94 12/29/22 15:44 O2 Del Method 12/29/22 15:44 BMI result Body Mass Index 17.4 Const: General: cooperative, no acute distress, alert, awake and ill appearing chronically Nutritional Appearance: malnourished Orientation/cons ciousness: patient oriented x3 Limitations: no limitations HEENT: Head: Yes normal to inspection and Yes atraumatic Ears: hearing grossly normal bilaterally General nose exam: Normal external nose present Face and sinus: Yes normal facial exam Eyes: General: appearance normal, both eyes and all related structures Sclerae: sclerae normal EOM: EOMs intact bilaterally Neck: Neck: Yes normal visual inspection, Yes no lymphadenopathy, Yes no meningeal signs, Yes trachea midline and Yes supple Resp: Effort & Inspection: normal respiratory effort and no respiratory distress Auscultation: clear to auscultation bilaterally and no wheezes Cardio: Rate: regular rate Rhythm: regular rhythm Heart sounds: S1 normal heart sound present, S2 normal heart sound present, no gallops, no murmurs and no rubs GI: Inspection: Yes normal to inspection Palpation (GI): Soft to palpation, Tenderness to palpation present (GI) (Diffusely) with no rebound tenderness, no guarding, not rigid and Other GI palpation findings present ( Nontender) Auscultation: normal bowel sounds : General: Yes CVA tenderness Back/Spine/Pelvis: Back: CVA tenderness Skin: Rashes: no rashes Wounds: no wounds Neuro: General: patient oriented x3, tone normal and no meningeal signs Gait exam (Neuro): Normal gait present Extrem: General: Yes normal to inspection, Yes no pedal edema, Yes no calf tenderness, No clubbing and No cyanosis Objective Data Labs 12/29/22 07:54 12/29/22 07:54 Labs: Laboratory Results - last 24 hr 12/28/22 12/29/22 12/29/22 20:16 07:54 07:54 WBC 5.4 RBC 2.49 L Hgb 7.3 L Hct 22.2 L MCV 89.2 MCH 29.3 MCHC 32.9 RDW 13.3 Plt Count 265 MPV 10.4 Absolute Nucleated RBC 0.030 H Nucleated RBC % (auto) 0.6 H Sodium 139 140 Potassium 4.3 4.3 Chloride 105 102 Carbon Dioxide 24 28 Anion Gap 14 14 BUN 61 H 55 H Creatinine 4.84 H* 4.48 H* Estim Creat Clear Calc 6.3 7.6 Estimated GFR 9 9 Random Glucose 101 97 Calcium 7.3 L 7.4 L Procedures Date of Service Date of Service: 12/29/22 Assessment & Plan Assessment and plan (1) Hypertension: Status: Acute Plan - FLORECITA: decr Scr is encouraging; suspect d/t IVF and previous BP to low; Scr 6.2-->--> 4.5 - CKD 4/5: HTN renaldis - Anemia: cont EPO/Fe support -HyperK; resolved REC: hold off on Pcath placement for now as may be delay starting of HD if Scr remains < 4.5 Time Spent With Patient Time: Total time managing care of this patient today ____ minutes. Progress Note: Quality Stroke Does the patient have a stroke diagnosis?: No
[2022-12-29] MEDS: Montelukast Sodium 10 MG TABLET PO (19:59)
[2022-12-29] MEDS: Morphine Sulfate 2 MG/ML CARTRIDGE IVPUSH (21:21)
[2022-12-29] MEDS: Ondansetron ODT 4 MG TAB.RAPDIS TRANSLINGU (21:22)
[2022-12-30 04:00] VITALS: BP 160/76; PULSE 86; RESP 17; TEMP 36.1; O2SAT 94
[2022-12-30] MEDS: Omeprazole 20 MG CAPSULE.DR PO (05:57)
[2022-12-30 06:00] VITALS: BMI 17.9
[2022-12-30 06:27] LABS: Hematocrit 23.9 % (37.0-47.0); Hemoglobin 7.5 g/dl (12.0-16.0); Mean Corpuscular HGB Conc 31.4 g/dl (31.0-35.0); Mean Corpuscular Hemoglobin 28.4 pg (27.0-33.0); Mean Corpuscular Volume 90.5 fL (80.0-98.0); Mean Platelet Volume 10.2 fL (9.4-12.3); NRBC Pct Auto 0.6 /100WBC (0.0-0.2); Platelet Count 295 X10*3/uL (160-400); Red Blood Count 2.64 X10*6/uL (4.20-5.50); Red Cell Distribution Width 13.3 % (11.0-16.0); White Blood Count 6.5 X10*3/uL (4.8-10.8)
[2022-12-30 06:30] VITALS: RESP 18
[2022-12-30] MEDS: Morphine Sulfate 2 MG/ML CARTRIDGE IVPUSH (06:30)
[2022-12-30 06:48] LABS: Anion Gap 15 (12-20); Blood Urea Nitrogen 53 mg/dL (9-16); Calcium 8.1 mg/dL (8.4-10.2); Carbon Dioxide 28 mmol/L (22-29); Chloride 105 mmol/L (96-108); Creatinine Clr Calc Pharmacy 7.7; Estimated Glomerular Filt Rate 9; Glucose Fasting 98 mg/dL (60-99); Potassium 4.5 mmol/L (3.3-5.1); Sodium 143 mmol/L (135-145)
[2022-12-30 07:27] VITALS: BP 170/82; PULSE 71; RESP 18; TEMP 36.6; O2SAT 94
[2022-12-30] MEDS: amLODIPine Besylate 10 MG TABLET PO (07:38)
[2022-12-30] MEDS: FLUoxetine HCl 20 MG CAPSULE 40 MG PO (07:38)
[2022-12-30] MEDS: hydrALAZINE HCl 25 MG TABLET PO ×2 (07:39→15:53)
[2022-12-30] MEDS: Lidocaine 4 % Patch ADH..PATCH 2 PATCH TRANSDERMA (07:47)
--- NOTE | 2022-12-30 10:30 | P.DS_ITS ---
DS: Providers Provider Date of Service: 12/30/22 Date of admission: 12/27/22 17:27 Primary care physician: Fran Alegria MD Consults: 12/28/22 08:59 Consult to Nephrology Routine Consulting Provider: Zhou Hidalgo Reason for consultation: Chronic renal failure Has provider been notified: Yes DS: Diagnosis Discharge Diagnosis (1) Hypertension: Status: Acute DS: Summary Hospital Course Hospital Course: from initial hpi: Chief Complaint: FLORECITA on CKD, Hyperkalemia HPI:??82-year-old female with underlying history of chronic kidney disease stage 4 to 5, anemia of chronic disease, chronic back pain, asthma, congestive heart failure, COPD, hypertension, GERD, hyperlipidemia, among others.? 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 As of 12/23/2022, her potassium had been 5.4, today on arrival to the ER 5.2, with a creatinine of 6.15 and today 5.60 respectively.? ? Patient was told to come to the ER because she may need emergent dialysis.? She had been taking in sodium bicarbonate pills, while in the emergency room the remainder of her workup seemed unremarkable and recheck laboratories were done this evening showing improvement of her potassium levels now down to 4.5 and her creatinine down to 5.18.? Patient is otherwise asymptomatic.? She denies any shortness on breath, she did have some nausea, vomiting abdominal discomfort for which a CT of the abdomen pelvis was done and showed no acute findings.? Her chest x-ray shows no evidence of pulmonary congestion and her BNP is normal. ? At this point he was decided to admit the patient to the ICU given her risk of quick derangement, patient denies any headache, lightheadedness or dizziness, chest pain, palpitations, arm or jaw pain, no more shortness of breath than usual, denies leg edema, she is producing urine has no genitourinary complaints. ? hospital course: Patient was admitted for acute kidney injury on CKD 5 complicated by hyperkalemia metabolic acidosis. She was treated with IV bicarb and admitted to the intensive care unit. Labs improved and she was downgraded to medical floor. Initially plan was for initiating dialysis inpatient. However patient's labs remained stable and does not have any current indications for urgent dialysis. Therefore, she will be discharged home and follow up closely with Nephrology for AV fistula. Hypertension she was continued on hydralazine and amlodipine. For mood disorder she was continued on Prozac. For COPD she was continued on Singulair and inhalers. For moderate protein calorie malnutrition p.o. intake is encouraged. Patient is feeling better will be discharged home. Time Spent with Patient Time attestation: Total time managing care of this patient today ____ minutes. Discharge coordination time: Greater than 30 minutes Quality: Safe Use of Opioids Does Pt have an Active Cancer Diagnosis on the Problem List?: No Quality: Stroke Does the patient have a stroke diagnosis?: No Physical Exam Vital Signs: Vital Signs: Last Vital Signs Temp 97.8 F 12/30/22 07:27 Pulse 71 12/30/22 07:27 Resp 18 12/30/22 07:27 BP 170/82 H 12/30/22 07:27 Pulse Ox 94 12/30/22 07:27 O2 Del Method 12/30/22 07:27 BMI result Body Mass Index 17.9 Const: General: cooperative, no acute distress, alert, awake and ill appearing chronically Nutritional Appearance: malnourished Orientation/consciousness: patient oriented x3 Limitations: no limitations HEENT: Head: Yes normal to inspection and Yes atraumatic Ears: hearing grossly normal bilaterally General nose exam: Normal external nose present Face and sinus: Yes normal facial exam Eyes: General: appearance normal, both eyes and all related structures Sclerae: sclerae normal EOM: EOMs intact bilaterally Neck: Neck: Yes normal visual inspection, Yes no lymphadenopathy, Yes no meningeal signs, Yes trachea midline and Yes supple Resp: Effort & Inspection: normal respiratory effort and no respiratory distress Auscultation: clear to auscultation bilaterally and no wheezes Cardio: Rate: regular rate Rhythm: regular rhythm Heart sounds: S1 normal heart sound present, S2 normal heart sound present, no gallops, no murmurs and no rubs GI: Inspection: Yes normal to inspection Palpation (GI): Soft to palpation, Tenderness to palpation present (GI) (Diffusely) with no rebound tenderness, no guarding, not rigid and Other GI palpation findings present ( Nontender) Auscultation: normal bowel sounds : General: Yes CVA tenderness Back/Spine/Pelvis: Back: CVA tenderness Skin: Rashes: no rashes Wounds: no wounds Neuro: General: patient oriented x3, tone normal and no meningeal signs Gait exam (Neuro): Normal gait present Extrem: General: Yes normal to inspection, Yes no pedal edema, Yes no calf tenderness, No clubbing and No cyanosis DS: Data Data Completed and Pending Completed studies during hospitalization [Text1]: Procedures Reposition Right Tibia with Internal Fixation Device, Open Approach (07/31/20) Transfusion of Nonautologous Red Blood Cells into Peripheral Vein, Percutaneous Approach (12/09/22) Labs on day of discharge: Laboratory Results - last 24 hr 12/30/22 12/30/22 06:05 06:05 WBC 6.5 RBC 2.64 L Hgb 7.5 L Hct 23.9 L MCV 90.5 MCH 28.4 MCHC 31.4 RDW 13.3 Plt Count 295 MPV 10.2 Absolute Nucleated RBC 0.040 H Nucleated RBC % (auto) 0.6 H Sodium 143 Potassium 4.5 Chloride 105 Carbon Dioxide 28 Anion Gap 15 BUN 53 H Creatinine 4.50 H* Estim Creat Clear Calc 7.7 Estimated GFR 9 Fasting Glucose 98 Calcium 8.1 L D Discharge Plan Discharge Anticipated Discharge Date/Time: 12/30/22 10:27 Patient Disposition: Home, Self-Care Discharge Diagnosis: florecita on ckd v Referrals: Fran Alegria MD [Primary Care Provider] - 1 Week Discharge Medications: Continued albuterol sulfate 2.5 mg /3 mL (0.083 %) solution for nebulization 1 vial inhalation QID PRN (Reason: Shortness Of Breath) montelukast 10 mg tablet 10 mg PO BEDTIME sodium chloride 7 % solution for nebulization 1 vial inhalation BID albuterol sulfate [ProAir HFA] 90 mcg/actuation Hfa Aerosol Inhaler 2 puff INHALATION Q6H PRN (Reason: Shortness Of Breath) fluticasone propionate [Flonase Allergy Relief] 50 mcg/actuation [place],Suspension 2 spray INTRANASAL DAILY PRN (Reason: Nasal Congestion) cholecalciferol (vitamin D3) 50 mcg (2,000 unit) Tablet 50 mcg PO DAILY lorazepam 0.5 mg Tablet 0.5 mg PO BID pantoprazole 40 mg Tablet,Delayed Release (Dr/Ec) 40 mg PO DAILY mirtazapine 7.5 mg Tablet 7.5 mg PO BEDTIME fluoxetine 40 mg Capsule 40 mg PO DAILY ferrous sulfate 325 mg (65 mg iron) Tablet 325 mg PO BID cyclobenzaprine 10 mg Tablet 10 mg PO TID PRN (Reason: Muscle Spasm) latanoprost 0.005 % drops 1 drp ophthalmic (eye) BEDTIME atorvastatin 40 mg tablet 40 mg PO DAILY cetirizine 10 mg Tablet 10 mg PO DAILY Advair HFA 115-21 mcg/actuation Hfa Aerosol Inhaler 2 puff INHALATION BID terazosin 1 mg capsule 1 mg PO DAILY docusate sodium 100 mg capsule 200 mg PO DAILY PRN (Reason: Constipation) [id number]-[id number]-[id number] 50-325-40 mg tablet 1 tab PO Q12H PRN (Reason: Headache) lidocaine 5 % ointment 1 appl topical TID PRN (Reason: Knee pain) furosemide 40 mg Tablet 40 mg PO DAILY Qty: 30 0RF Protocol: Hold for SBP< HOLD for SBP < : 90 hydralazine 25 mg Tablet 25 mg PO TID Qty: 90 0RF Protocol: Hold for SBP< HOLD for SBP < : 90 sodium bicarbonate 650 mg Tablet 650 mg PO BID Qty: 60 0RF amlodipine 10 mg Tablet 10 mg PO DAILY Qty: 30 0RF Protocol: Hold for SBP< HOLD for SBP < : 90 oxycodone-acetaminophen 5-325 mg tablet 1 tab PO Q8H PRN (Reason: Pain, Moderate) Qty: 10 0RF Discharge Orders: Discharge Order (Routine); Ordered 12/30/22 Ordered By: Dameon Mathis Diet: Advance to usual diet Activity on Discharge: As tolerated Stand Alone Forms: Patient Portal Discharge page Care Plan Goals: manage ckd Health Concerns: approaching HD Plan of Treatment: follow closely with nephrology Assessment: see above
[2022-12-30] MEDS: oxyCODONE HCl Immed Release 5 MG TABLET PO ×2 (11:28→19:26)
[2022-12-30 12:00] VITALS: BP 150/85; PULSE 80; RESP 20; TEMP 36.3; O2SAT 96
--- NOTE | 2022-12-30 12:58 | MHC.CM.PN ---
IMM 12/30/22 Patient is discharged to home with resumption of [facility]. Patients dtr will pick her up Between 5PM-6PM this evening.
--- NOTE | 2022-12-30 15:36 | P.PNNP_ITS ---
Subjective Subjective Date of Service: 12/30/22 Interval history: Seen and examined, events noted Physical Exam Vital Signs: Vital Signs: Last Vital Signs Temp 97.4 F 12/30/22 12:00 Pulse 80 12/30/22 12:00 Resp 20 12/30/22 12:00 BP 150/85 H 12/30/22 12:00 Pulse Ox 96 12/30/22 12:00 O2 Del Method 12/30/22 12:00 BMI result Body Mass Index 17.9 Const: General: cooperative, no acute distress, alert, awake and ill appearing chronically Nutritional Appearance: malnourished Orientation/cons ciousness: patient oriented x3 Limitations: no limitations HEENT: Head: Yes normal to inspection and Yes atraumatic Ears: hearing grossly normal bilaterally General nose exam: Normal external nose present Face and sinus: Yes normal facial exam Eyes: General: appearance normal, both eyes and all related structures Sclerae: sclerae normal EOM: EOMs intact bilaterally Neck: Neck: Yes normal visual inspection, Yes no lymphadenopathy, Yes no meningeal signs, Yes trachea midline and Yes supple Resp: Effort & Inspection: normal respiratory effort and no respiratory distress Auscultation: clear to auscultation bilaterally and no wheezes Cardio: Rate: regular rate Rhythm: regular rhythm Heart sounds: S1 normal heart sound present, S2 normal heart sound present, no gallops, no murmurs and no rubs GI: Inspection: Yes normal to inspection Palpation (GI): Soft to palpation, Tenderness to palpation present (GI) (Diffusely) with no rebound tenderness, no guarding, not rigid and Other GI palpation findings present ( Nontender) Auscultation: normal bowel sounds : General: Yes CVA tenderness Back/Spine/Pelvis: Back: CVA tenderness Skin: Rashes: no rashes Wounds: no wounds Neuro: General: patient oriented x3, tone normal and no meningeal signs Gait exam (Neuro): Normal gait present Extrem: General: Yes normal to inspection, Yes no pedal edema, Yes no calf tenderness, No clubbing and No cyanosis Objective Data Labs 12/30/22 06:05 12/30/22 06:05 Labs: Laboratory Results - last 24 hr 12/30/22 12/30/22 06:05 06:05 WBC 6.5 RBC 2.64 L Hgb 7.5 L Hct 23.9 L MCV 90.5 MCH 28.4 MCHC 31.4 RDW 13.3 Plt Count 295 MPV 10.2 Absolute Nucleated RBC 0.040 H Nucleated RBC % (auto) 0.6 H Sodium 143 Potassium 4.5 Chloride 105 Carbon Dioxide 28 Anion Gap 15 BUN 53 H Creatinine 4.50 H* Estim Creat Clear Calc 7.7 Estimated GFR 9 Fasting Glucose 98 Calcium 8.1 L D Procedures Date of Service Date of Service: 12/30/22 Assessment & Plan Assessment and plan (1) Hypertension: Status: Acute Plan - FLORECITA: decr Scr is encouraging; suspect d/t IVF and previous BP to low; Scr 6.2-->--> 4.5 stable and suspect may be new BSL - CKD 4/5: HTN renal dis - Anemia: cont EPO/Fe support -HyperK; resolved - HTN: siboptimal but eed to avoid over mediating REC: hold off on Pcath placement for now as may be delay starting of HD if Scr remains < 4.5 will arrange for outpt AVF plaement and start HD as outpt; if gets readm then will go ahead and place Pcath and start HD then Time Spent With Patient Time: Total time managing care of this patient today ____ minutes. Progress Note: Quality Stroke Does the patient have a stroke diagnosis?: No
[2022-12-30 15:40] VITALS: BP 150/92; PULSE 87; RESP 18; TEMP 36.6; O2SAT 94
[2022-12-30] MEDS: Acetaminophen 325 MG TABLET 975 MG PO (17:51)
== END 2022-12-30 20:08 | disposition home health service (06) | DRG 683 ==
LOC: HO.ED 17:15 → HO.EDOVER 17:38 → HO.ICU 17:51 → HO.IMC 12-28 13:34
PROVIDERS: Physician Assistant; Physician Assistant Medical; Admitting Provider Internal Medicine Pulmonary Disease; Emergency Provider Emergency Medicine Emergency Medical Services; PCP Internal Medicine; Visit Provider Internal Medicine
DX: N17.9 Acute kidney failure, unspecified (principal); E44.0 Moderate protein-calorie malnutrition; E87.21 Acute metabolic acidosis; Z68.1 Body mass index [BMI] 19.9 or less, adult; I12.0 Hypertensive chronic kidney disease with stage 5 chronic kidney disease or end stage renal disease; I50.32 Chronic diastolic (congestive) heart failure; N18.5 Chronic kidney disease, stage 5; E87.5 Hyperkalemia; E78.5 Hyperlipidemia, unspecified; K21.9 Gastro-esophageal reflux disease without esophagitis; J44.9 Chronic obstructive pulmonary disease, unspecified; D63.1 Anemia in chronic kidney disease; G89.4 Chronic pain syndrome; Z20.822 Contact with and (suspected) exposure to COVID-19; Z87.891 Personal history of nicotine dependence; Z88.2 Allergy status to sulfonamides; Z88.5 Allergy status to narcotic agent; Z88.6 Allergy status to analgesic agent; Z79.51 Long term (current) use of inhaled steroids; Z79.899 Other long term (current) drug therapy
CPT/HCPCS: 36415; 71045; 74176; 80048; 80053; 81001; 81003; 82040; 82248; 82803; 83690; 83735; 83880; 84100; 84484; 85025; 85027; 85610; 87635; 93005; 99284; J1643; J2270; J2405

== ENCOUNTER 2023-02-05 13:51 | Outpatient (REF) | payer MEDICARE, SELFPAY ==
[2023-02-05 14:44] LABS: Hemoglobin 8.5 g/dl (12.0-16.0); Mean Corpuscular HGB Conc 30.4 g/dl (31.0-35.0); Mean Corpuscular Hemoglobin 28.1 pg (27.0-33.0); Mean Corpuscular Volume 92.7 fL (80.0-98.0); Mean Platelet Volume 11.1 fL (9.4-12.3); Platelet Count 204 X10*3/uL (160-400); Red Blood Count 3.02 X10*6/uL (4.20-5.50); Red Cell Distribution Width 15.2 % (11.0-16.0); White Blood Count 7.1 X10*3/uL (4.8-10.8)
[2023-02-05 16:03] LABS: Anion Gap 20 (12-20); Blood Urea Nitrogen 95 mg/dL (9-16); Carbon Dioxide 14 mmol/L (22-29); Chloride 108 mmol/L (96-108); Estimated Glomerular Filt Rate 5; Glucose Random 223 mg/dL (60-115); Potassium 5.1 mmol/L (3.3-5.1); Sodium 137 mmol/L (135-145)
[2023-02-07 14:58] LABS: PTHI 736 pg/mL (16-77)
== END 2023-02-05 13:52 | disposition home or self-care (01) ==
LOC: HO.LAB 13:51
PROVIDERS: PCP Internal Medicine; Visit Provider Internal Medicine Hypertension Specialist
DX: N18.5 Chronic kidney disease, stage 5 (principal); D63.1 Anemia in chronic kidney disease
CPT/HCPCS: 36415; 80048; 83970; 85027

== ENCOUNTER 2023-02-17 13:35 | Outpatient (REF) | payer MEDICARE, SELFPAY ==
[2023-02-19 03:49] LABS: HBS Num1 78.45 mIU/mL (0-7.99); HBc Num1 2.76 S/CO (0.00-0.79); HBsAGNum1 0.27 S/CO (0.00-0.99); Hepatitis B Surface Antigen Negative (Negative); ~HepC Num1 0.13 S/CO (0.00-0.79); ~Hepatitis B Surface Antibody REACTIVE (Nonreactive); ~Hepatitis C Antibody Nonreactive (Nonreactive)
[2023-02-19 04:59] LABS: HBc Num2 2.76 S/CO; HBc Num3 2.73 S/CO; Hepatitis B Core Antibody Reactive (Nonreactive)
== END 2023-02-17 13:36 | disposition home or self-care (01) ==
LOC: HO.LAB 13:35
PROVIDERS: PCP Internal Medicine; Visit Provider Internal Medicine Hypertension Specialist
DX: N18.5 Chronic kidney disease, stage 5 (principal)
CPT/HCPCS: 36415; 86704; 86706; 86803; 87340

== ENCOUNTER → 2023-02-21 12:08 | Outpatient (BNVA) | payer MEDICARE, SELFPAY | PROVIDERS: PCP Internal Medicine; Visit Provider Orthopaedic Surgery | DX: M17.0 Bilateral primary osteoarthritis of knee (principal) | CPT/HCPCS: 20610; 99212; J1100 ==

== ENCOUNTER 2023-04-23 13:38 | Outpatient (REF) | payer MEDICARE, SELFPAY ==
[2023-04-23 14:28] LABS: Thyroid Stimulating Hormone 1.64 uIU/mL (0.32-4.0)
[2023-04-23 14:35] LABS: Vitamin B12 724 pg/mL (200-900)
== END 2023-04-23 13:39 | disposition home or self-care (01) ==
LOC: HO.HVNA 13:38
PROVIDERS: Visit Provider Internal Medicine
DX: R41.3 Other amnesia (principal)
CPT/HCPCS: 36415; 82607; 84443

== ENCOUNTER 2023-05-19 19:22 | Emergency (ER) | payer MEDICARE, SELFPAY ==
--- NOTE | ~2023-05-19 | XR_ITS ---
EXAMINATION: XR CHEST CLINICAL INFORMATION: Cough COMPARISON: 12/27/2022 TECHNIQUE: Frontal view of the chest was obtained. FINDINGS: Since the prior study a tunneled right IJ PermCath has been placed with its tip in the proximal RA in excellent position. Heart size normal. No infiltrates, effusions or lung masses are seen. Vascular calcifications are seen. Mild thoracolumbar scoliosis with degenerative changes in the spine. Surgical clips in the gallbladder fossa. Partial visualization of ACDF hardware. Mild calcification in the right supraspinatus tendon. XR/XR chest 1V IMPRESSION: No acute intrathoracic disease. A cause for the patient's cough has not been found.
--- NOTE | ~2023-05-19 | CT_ITS ---
EXAMINATION: CT ABDOMEN AND PELVIS WITHOUT CONTRAST CLINICAL INFORMATION: Right lower quadrant pain, nausea and vomiting with suspicion of small bowel obstruction COMPARISON: CT abdomen pelvis 12/27/[address] scans dating back to 07/16/2011 TECHNIQUE: Multidetector volumetric imaging was performed from the superior aspect of the liver through the pubic symphysis. Sagittal and coronal reformatted images were obtained on the technologist's workstation. This CT examination was performed using dose optimization techniques as appropriate, variously including the following: *Automated exposure control *Adjustment of mA and/or kV according to patient size (this includes techniques or standardized protocols for targeted exams where dose is matched to indication/reason for exam; i.e. extremities or head) *Use of iterative reconstruction technique DLP: 300 mGy-cm FINDINGS: LUNG BASES: Basilar atelectasis is present. Some traction bronchiectasis and emphysematous changes are seen. Heart size normal. No infiltrates, effusions or lung masses. LIVER, GALLBLADDER, AND BILIARY TREE: Status post cholecystectomy with mild prominence of intrahepatic ducts, unchanged from prior. The liver is normal in size, shape, and attenuation. No focal hepatic lesion or biliary ductal dilatation is present. The gallbladder is unremarkable with no evidence of radiopaque gallstones, gallbladder wall thickening, or obvious pericholecystic inflammatory changes. PANCREAS: The pancreatic duct measures 4 mm within the pancreas and 7 mm distally. The common bile duct measures about 6 mm. No obstructing stone or mass is seen. Similar findings have been seen on prior studies. SPLEEN: Unremarkable. ADRENAL GLANDS: Unremarkable. KIDNEYS AND URETERS: The kidneys are normal in size, shape, and attenuation. No hydronephrosis, hydroureter, or calculi seen. No perinephric stranding. BLADDER: Unremarkable. GASTROINTESTINAL TRACT: Some colonic diverticula are present without diverticulitis. The small and large bowel are otherwise unremarkable. The appendix is unremarkable. ABDOMINAL WALL: No significant hernia is appreciated. LYMPH NODES: No retroperitoneal lymphadenopathy. VASCULAR: Calcific atherosclerotic plaque present in the aorta and iliofemoral vessels. No aortic aneurysm. 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 PELVIC VISCERA: Unremarkable. OSSEOUS STRUCTURES: Right hip prosthesis present. Old healed fracture inferior right pubic ramus. There is a thoracolumbar biconvex scoliosis. No acute fractures are seen. Degenerative changes are present in the spine. CT/CT abdomen pelvis wo IV con IMPRESSION: 1. A cause for the patient's right lower quadrant pain and vomiting has not been found. 2. No evidence of small bowel obstruction 3. Incidental findings as described above including chronic dilatation intrahepatic and extrahepatic bile ducts as well as pancreatic duct dating back to at least 2010. 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 Fleischner guidelines were followed.
[2023-05-19 20:07] VITALS: BP 131/78; BP 136/78; PULSE 85; PULSE 94; RESP 18; TEMP 36.7; O2SAT 97; BMI 15.3
[2023-05-19 20:29] LABS: MANUAL DIFF FLAG NO
[2023-05-19 20:39] LABS: Basophils Absolute Auto 0.1 X10*3/uL (0.0-0.2); Basophils Percent Auto 1.2 % (0-2); Eosinophils Absolute Auto 0.2 X10*3/uL (0.0-0.4); Eosinophils Percent Auto 2.9 % (0-4); Hematocrit 31.4 % (37.0-47.0); Hemoglobin 10.1 g/dl (12.0-16.0); Imm Gran Abs Auto 0.01 X10*3/uL (0.00-0.03); Imm Gran Pct Auto 0.2 % (0.0-0.4); Lymphocytes Absolute Auto 2.6 X10*3/uL (1.2-4.9); Lymphocytes Percent Auto 44.8 % (20-40); Mean Corpuscular HGB Conc 32.2 g/dl (31.0-35.0); Mean Corpuscular Volume 93.2 fL (80.0-98.0); Mean Platelet Volume 10.3 fL (9.4-12.3); Monocytes Absolute Auto 0.5 X10*3/uL (0.1-1.2); Neutrophils Absolute Auto 2.5 x10*3/uL (2.0-8.3); Neutrophils Percent Auto 42.9 % (45-73); Platelet Count 195 X10*3/uL (160-400); Red Blood Count 3.37 X10*6/uL (4.20-5.50); White Blood Count 5.9 X10*3/uL (4.8-10.8)
[2023-05-19 20:41] LABS: INTERNATIONAL NORM RATIO 0.9 (0.9-1.1); Prothrombin Time 10.7 SEC (10.0-13.1)
--- NOTE | 2023-05-19 21:21 | ED_ITS ---
HPI - General Adult General Chief complaint: General Medical Stated complaint: POST SURGERY BODY PAIN Time Seen by Provider: 05/19/23 19:44 Source: patient, family (Daughter) and EMS Mode of arrival: EMS History of Present Illness HPI narrative: This is an 82-year-old female with ESR D on dialysis (Friday, , Friday) and last dialysis was on through a dialysis port at the right anterior chest. Patient does have a partial fistula to the right upper extremity and has complaints about the right upper extremity and right shoulder but denies any fever, chills, nausea, vomiting but states she has pain in both knee. Collateral information provided by the daughter confirms that patient has chronic pain for which she takes oxycodone and that there are some concerns about dementia at this time. This is consistent with patient informing me that the year is 1982. Related Data Home Medications Medication Instructions Recorded Confirmed albuterol sulfate 2.5 mg/3 mL 1 vial inhalation QID PRN 07/28/20 12/27/22 (0.083 %) solution for nebulization Shortness Of Breath montelukast 10 mg tablet 10 mg PO BEDTIME 07/28/20 12/27/22 sodium chloride 7 % for 1 vial inhalation BID 07/28/20 12/27/22 nebulization albuterol sulfate 90 mcg/actuation 2 puff inhalation Q6H PRN 08/01/20 12/27/22 aerosol inhaler (ProAir HFA) Shortness Of Breath cholecalciferol (vitamin D3) 50 50 mcg PO DAILY 08/01/20 12/27/22 mcg (2,000 unit) tablet cyclobenzaprine 10 mg tablet 10 mg PO TID PRN Muscle Spasm 08/01/20 12/27/22 ferrous sulfate 325 mg (65 mg 325 mg PO BID 08/01/20 12/27/22 iron) tablet fluoxetine 40 mg capsule 40 mg PO DAILY 08/01/20 12/27/22 fluticasone propionate 50 2 spray intranasal DAILY PRN Nasal 08/01/20 12/27/22 mcg/actuation nasal Congestion spray,suspension (Flonase Allergy Relief) lorazepam 0.5 mg tablet 0.5 mg PO BID 08/01/20 12/27/22 mirtazapine 7.5 mg tablet 7.5 mg PO BEDTIME 08/01/20 12/27/22 pantoprazole 40 mg tablet,delayed 40 mg PO DAILY 08/01/20 12/27/22 release atorvastatin 40 mg tablet 40 mg PO DAILY 06/19/22 12/27/22 cetirizine 10 mg tablet 10 mg PO DAILY 06/19/22 12/27/22 fluticasone propionate 115 2 puff inhalation BID 06/19/22 12/27/22 mcg-salmeterol 21 mcg/actuation HFA inhaler (Advair HFA) latanoprost 0.005 % eye drops 1 drp ophthalmic (eye) BEDTIME 06/19/22 12/27/22 pcbdlbjpem-icvqjtxxpushu-gjizekwe 1 tab PO Q12H PRN Headache 12/09/22 12/27/22 50 mg-325 mg-40 mg tablet docusate sodium 100 mg capsule 200 mg PO DAILY PRN Constipation 12/09/22 12/27/22 lidocaine 5 % topical ointment 1 appl topical TID PRN Knee pain 12/09/22 12/27/22 terazosin 1 mg capsule 1 mg PO DAILY 12/09/22 12/27/22 Previous Rx's Medication Instructions Recorded amlodipine 10 mg tablet 10 mg PO DAILY #30 tabs 12/13/22 furosemide 40 mg tablet 40 mg PO DAILY #30 tabs 12/13/22 hydralazine 25 mg tablet 25 mg PO TID #90 tabs 12/13/22 oxycodone-acetaminophen 5 mg-325 1 tab PO Q8H PRN Pain, Moderate 12/13/22 mg tablet #10 tabs sodium bicarbonate 650 mg tablet 650 mg PO BID #60 tabs 12/13/22 Allergies Allergy/AdvReac Type Severity Reaction Status Date / Time codeine [Codeine] Allergy Mild RASH Verified 02/21/23 12:42 Sulfa (Sulfonamide Allergy Mild HIVES Verified 02/21/23 12:42 Antibiotics) [Sulfa (Sulfonamides)] ibuprofen [From Motrin] AdvReac Mild STOMACH Verified 02/21/23 12:42 UPSET, Rectal bleeding Review of Systems Review of Systems: Pertinent positives and negatives as stated in [facility] Past Medical History Source: nursing notes reviewed Medical History FLORECITA (acute kidney injury) Anemia Anemia Anxiety and depression Asthma Back pain CHF (congestive heart failure) Chronic anemia CKD (chronic kidney disease) CKD (chronic kidney disease) stage 4, GFR 15-29 ml/min COPD (chronic obstructive pulmonary disease) GERD (gastroesophageal reflux disease) Headache Hiatal hernia Hyperkalemia Hyperlipidemia Hypertension Hypertensive urgency Metabolic acidosis Osteoarthritis Surgical History H/O of rectopexy H/O: hysterectomy History of bowel resection History of cholecystectomy History of esophagogastroduodenoscopy (EGD) History of left-sided carotid endarterectomy History of open reduction and internal fixation (ORIF) procedure History of total right hip arthroplasty Hx of breast biopsy Hx of colonoscopy Social History Social History Household Members: Family Household Members Other:: DAUGHTER LAURECE Housing: [facility] Do you presently have visiting nurse or other home services: Yes ([facility]) Alcohol intake: current Alcohol intake frequency: holidays/special occasions o nly Patient Tobacco Use Status: Former Tobacco user Quit Date: 12 YEARS AGO Years Smoked: 20 Smoked in Last 30 Days: No e-Cigarette/Vaping Use: Never Used Second Hand Smoke Exposure: No Use of substances other than those prescribed or required for medical reasons: No Substance Use Type: Marijuana Advance Directives: Yes Advance Directives on File: Yes Advance Directives Date on File: 09/04/20 service: No Current occupational status: retired Physical Exam ED Vital Signs: Vital Signs - 24 hr 05/19/23 20:07 05/19/23 23:02 05/19/23 23:59 Temperature 98.1 F 98.3 F Pulse Rate 85 79 76 Respiratory Rate 18 8 L 13 Blood Pressure 131/78 150/80 H 152/82 H Pulse Oximetry 97 94 97 Oxygen Delivery Method Room Air BMI result Body Mass Index 15.3 VITAL SIGNS: Reviewed. GENERAL: Well developed, well nourished, in no acute distress. HEAD: Normocephalic/atraumatic EYES: PERRLA, EOMI EARS: Ext canals without abnormality NOSE: Nares patent bilateral OROPHARYNX: no oral lesions noted, posterior pharynx clear NECK: Supple, no adenopathy LUNGS: Normal breath sounds. No adventitious sounds or accessory muscle use. SpO2<97>; CHEST WALL: There is a dialysis catheter at the right anterior chest wall without surrounding erythema/induration and no obvious drainage noted. CARDIOVASCULAR: Regular rate and rhythm without noted murmurs, no JVD or lower extremity edema. ABDOMEN: Soft, non-tender, non-distended with bowel sounds. MUSCULOSKELETAL: No tenderness, deformities, or effusions noted on gross inspection. EXTREMITIES: No cyanosis, clubbing or edema; RIGHT UPPER EXTREMITY: There is a thrill noted on palpation over the fistula SKIN: Inspection of the skin reveals no rashes NEUROLOGIC: Alert and oriented x 2. Strength and sensation to light touch were grossly intact x 4. Medications Administered Discontinued Medications Generic Name Dose Route Start Last Admin Trade Name Freq PRN Reason Stop Dose Admin Fentanyl 25 mcg 05/19/23 22:48 05/19/23 23:00 Fentanyl Citrate/Pf 100 Mcg/2 Ml Vial IVPUSH 05/19/23 22:49 25 mcg ONCE ONE Administration Protocol Oxycodone HCl 5 mg 05/19/23 21:21 05/19/23 21:43 Oxycodone Hcl Immed Release 5 Mg Tablet PO 05/19/23 21:22 5 mg ONCE ONE Administration Oxycodone HCl 5 mg 05/20/23 00:28 05/20/23 00:37 Oxycodone Hcl Immed Release 5 Mg Tablet PO 05/20/23 00:29 5 mg ONCE ONE Administration Medical Decision Making Medical Decision Making MDM Narrative: 82-year-old female with history and clinical presentation, DDX: Chronic pain, but very low clinical suspicion for pneumonia or pneumothorax as there is no hypoxia, and no reports of fevers and patient is noted be afebrile here, no tachypnea or tachycardia and appears to be oxygenating well on room air. On obtaining collateral information from the daughter it appears that patient might have a component of dementia and called EMS while the daughter was in the house. No concerns for CHF or cardiac etiology but will pursue chest x-ray, EKG. I reviewed all investigations and hematologic indices are grossly and chronically stable. Chemistry and sees are consistent with underlying ESRD and dialysis dependent without gross electrolyte abnormalities and liver enzymes are within normal limits. Patient has responded well to pain medications, CT scan is not significant for obstruction and otherwise my interpretation is in agreement with radiology's impression. Patient is otherwise hemodynamically stable for return to home. There is no evidence of pneumonia, cellulitis are thrombosis in the right upper extremity and no evidence of intrathoracic path ologies to better explain patient's pain syndrome and feel that this is a chronic pain syndrome. Differential Diagnosis Differential Diagnoses: The differential diagnosis associated with the presentation includes Please see the discussion above Admission/Observation Consideration of admission/observation: Escalation of care including admission/observation considered Please see the discussion above Lab Data MDM Lab Attestation statement: I reviewed the patient's lab results. Please see the discussion above 05/19/23 20:22 05/19/23 20:22 Labs: Lab Results 05/19/23 05/19/23 05/19/23 Range/Units 20:22 20:22 21:50 WBC 5.9 (4.8-10.8) X10*3/uL RBC 3.37 L (4.20-5.50) X10*6/uL Hgb 10.1 L (12.0-16.0) g/dl Hct 31.4 L (37.0-47.0) % MCV 93.2 (80.0-98.0) fL MCH 30.0 (27.0-33.0) pg MCHC 32.2 (31.0-35.0) g/dl RDW 14.0 (11.0-16.0) % Plt Count 195 (160-400) X10*3/uL MPV 10.3 (9.4-12.3) fL Immature Gran % (Auto) 0.2 (0.0-0.4) % Neut % (Auto) 42.9 L (45-73) % Lymph % (Auto) 44.8 H (20-40) % [place] % (Auto) 8.0 (2-11) % Eos % (Auto) 2.9 (0-4) % Baso % (Auto) 1.2 (0-2) % Lymph # (Auto) 2.6 (1.2-4.9) X10*3/uL [place] # (Auto) 0.5 (0.1-1.2) X10*3/uL Eos # (Auto) 0.2 (0.0-0.4) X10*3/uL Baso # (Auto) 0.1 (0.0-0.2) X10*3/uL Abs Immat Gran (auto) 0.01 (0.00-0.03) X10*3/uL Absolute Neuts (auto) 2.5 (2.0-8.3) x10*3/uL Absolute Nucleated RBC 0.000 (0.0-0.012) X10*3/uL Nucleated RBC % (auto) 0.0 (0.0-0.2) /100WBC PT 10.7 (10.0-13.1) SEC INR 0.9 (0.9-1.1) Sodium 140 (135-145) mmol/L Potassium 4.1 (3.3-5.1) mmol/L Chloride 99 (96-108) mmol/L Carbon Dioxide 27 (22-29) mmol/L Anion Gap 18 (12-20) BUN 57 H (9-16) mg/dL Creatinine 6.13 H* (0.5-1.4) mg/dL Estim Creat Clear Calc 4.7 Estimated GFR 7 Random Glucose 80 (60-115) mg/dL Calcium 9.0 D (8.4-10.2) mg/dL Total Bilirubin 0.4 (0.0-1.0) mg/dL AST 27 (5-31) U/L ALT 22 (0-31) U/L Alkaline Phosphatase 116 (39-117) U/L Total Protein 7.4 (6.5-8.0) g/dL Albumin 3.6 (3.5-5.0) g/dL Independent Interpretation I performed an independent interpretation of an: EKG Interpretation: Normal sinus rhythm, HR -78, no STEMI, IL/QRS/QTC is within normal limits. Radiology Impression Radiologist Impression: No SBO, otherwise my interpretation is in agreement with radiology's impression External Record Review External record reviewed: Outpatient record and Prior outpatient labs Chronic Conditions Patient?s care impacted by: Hypertension and Other ESRD on dialysis Critical Care Time Critical Care Time Critical Care Time: Yes Total Critical Care Time: 30 Attestation: I personally attest to this time spent taking care of the patient. Discharge Plan Discharge Clinical Impression: Chronic pain Patient Disposition: Home, Self-Care Instructions: Chronic Pain (ED) Additional Instructions: 1. Resume all home medications as prescribed. 2. Please follow-up with your primary care provider and attend your dialysis as scheduled in the morning. Return to the ER for any worsening symptoms. Prescriptions: No Action albuterol sulfate 2.5 mg /3 mL (0.083 %) solution for nebulization 1 vial inhalation QID PRN (Reason: Shortness Of Breath) montelukast 10 mg tablet 10 mg PO BEDTIME sodium chloride 7 % solution for nebulization 1 vial inhalation BID albuterol sulfate [ProAir HFA] 90 mcg/actuation Hfa Aerosol Inhaler 2 puff INHALATION Q6H PRN (Reason: Shortness Of Breath) fluticasone propionate [Flonase Allergy Relief] 50 mcg/actuation [place],Suspension 2 spray INTRANASAL DAILY PRN (Reason: Nasal Congestion) cholecalciferol (vitamin D3) 50 mcg (2,000 unit) Tablet 50 mcg PO DAILY lorazepam 0.5 mg Tablet 0.5 mg PO BID pantoprazole 40 mg Tablet,Delayed Release (Dr/Ec) 40 mg PO DAILY mirtazapine 7.5 mg Tablet 7.5 mg PO BEDTIME fluoxetine 40 mg Capsule 40 mg PO DAILY ferrous sulfate 325 mg (65 mg iron) Tablet 325 mg PO BID cyclobenzaprine 10 mg Tablet 10 mg PO TID PRN (Reason: Muscle Spasm) latanoprost 0.005 % drops 1 drp ophthalmic (eye) BEDTIME atorvastatin 40 mg tablet 40 mg PO DAILY cetirizine 10 mg Tablet 10 mg PO DAILY Advair HFA 115-21 mcg/actuation Hfa Aerosol Inhaler 2 puff INHALATION BID terazosin 1 mg capsule 1 mg PO DAILY docusate sodium 100 mg capsule 200 mg PO DAILY PRN (Reason: Constipation) syrysrhqbu-suhmerzlsrrnd-mlkg 50-325-40 mg tablet 1 tab PO Q12H PRN (Reason: Headache) lidocaine 5 % ointment 1 appl topical TID PRN (Reason: Knee pain) furosemide 40 mg Tablet 40 mg PO DAILY Qty: 30 0RF Protocol: Hold for SBP< HOLD for SBP < : 90 hydralazine 25 mg Tablet 25 mg PO TID Qty: 90 0RF Protocol: Hold for SBP< HOLD for SBP < : 90 sodium bicarbonate 650 mg Tablet 650 mg PO BID Qty: 60 0RF amlodipine 10 mg Tablet 10 mg PO DAILY Qty: 30 0RF Protocol: Hold for SBP< HOLD for SBP < : 90 oxycodone-acetaminophen 5-325 mg tablet 1 tab PO Q8H PRN (Reason: Pain, Moderate) Qty: 10 0RF Referrals: Fran Alegria MD [Primary Care Provider] -
--- NOTE | 2023-05-19 21:29 | ECG_ITS ---
Test Reason : CP Blood Pressure : / mmHG Vent. Rate : 078 BPM Atrial Rate : 078 BPM P-R Int : 164 ms QRS Dur : 078 ms QT Int : 396 ms P-R-T Axes : 063 021 061 degrees QTc Int : 451 ms Normal sinus rhythm Normal ECG When compared with ECG of 27-DEC-2022 10:14, No significant change was found Referred By: Stephenie Perry Electronically Signed By:YONI GUAMAN MD
[2023-05-19] MEDS: oxyCODONE HCl Immed Release 5 MG TABLET PO (21:43)
[2023-05-19 22:09] LABS: Anion Gap 18 (12-20)
[2023-05-19 22:23] LABS: Alanine Aminotransferase 22 U/L (0-31); Albumin Level 3.6 g/dL (3.5-5.0); Alkaline Phosphatase 116 U/L (39-117); Aspartate Amino Transferase 27 U/L (5-31); Bilirubin Total 0.4 mg/dL (0.0-1.0); Blood Urea Nitrogen 57 mg/dL (9-16); Carbon Dioxide 27 mmol/L (22-29); Chloride 99 mmol/L (96-108); Creatinine Clr Calc Pharmacy 4.7; Estimated Glomerular Filt Rate 7; Glucose Random 80 mg/dL (60-115); Potassium 4.1 mmol/L (3.3-5.1); Sodium 140 mmol/L (135-145); Total Protein 7.4 g/dL (6.5-8.0)
--- NOTE | 2023-05-19 22:23 | PC.NURSE ---
Pt states vomited up medication, made aware.
[2023-05-19] MEDS: fentaNYL citrate/PF 100 MCG/2 ML VIAL 25 MCG IVPUSH (23:00)
[2023-05-19 23:02] VITALS: BP 150/80; PULSE 79; RESP 8; O2SAT 94
[2023-05-19 23:59] VITALS: BP 152/82; PULSE 76; RESP 13; TEMP 36.8; O2SAT 97
[2023-05-20] MEDS: oxyCODONE HCl Immed Release 5 MG TABLET PO (00:37)
--- NOTE | 2023-05-20 01:46 | PC.NURSE ---
preparing pt for discharge, attempted to reach daughter for ride home, no answer. left VM for call back.
[2023-05-20 01:52] VITALS: BP 137/79; PULSE 77; RESP 12; TEMP 36.7; O2SAT 95
--- NOTE | 2023-05-20 02:48 | PC.NURSE ---
Second call placed to daughter for transportation given discharge order in place. Pt supposed to have dialysis today, unable to reach daughter to assist with scheduling.
--- NOTE | 2023-05-20 05:22 | PC.NURSE ---
pt sleeping, no acute distress at this time, plan to attempt contact with daughter at 6a ffor transport home.
--- NOTE | 2023-05-20 05:49 | PC.NURSE ---
Daughter en route to hot die picker pt.
== END 2023-05-20 06:22 | disposition home or self-care (01) ==
PROVIDERS: Emergency Provider Student in an Organized Health Care Education/Training Program; PCP Internal Medicine
DX: G89.4 Chronic pain syndrome (principal); E11.22 Type 2 diabetes mellitus with diabetic chronic kidney disease; I13.2 Hypertensive heart and chronic kidney disease with heart failure and with stage 5 chronic kidney disease, or end stage renal disease; N18.6 End stage renal disease; I50.9 Heart failure, unspecified; Z99.2 Dependence on renal dialysis; Z79.891 Long term (current) use of opiate analgesic; E78.5 Hyperlipidemia, unspecified; Z87.891 Personal history of nicotine dependence; Z79.899 Other long term (current) drug therapy
CPT/HCPCS: 36415; 71045; 74176; 80053; 85025; 85610; 93005; 96374; 99284; 99285; J3010

== ENCOUNTER → 2023-05-19 21:29 | Outpatient (BNV) | payer MEDICARE, SELFPAY | PROVIDERS: Emergency Provider Student in an Organized Health Care Education/Training Program; PCP Internal Medicine; Visit Provider Internal Medicine Cardiovascular Disease | DX: R07.9 Chest pain, unspecified (principal) | CPT/HCPCS: 93010 ==

== ENCOUNTER 2023-08-22 11:22 | Inpatient (IN) | payer MEDICARE, SELFPAY ==
--- NOTE | ~2023-08-22 | CT_ITS ---
EXAMINATION: CT ABDOMEN AND PELVIS WITHOUT CONTRAST CLINICAL INFORMATION: Lower abdominal pain, nausea and vomiting COMPARISON: 05/19/2023 TECHNIQUE: Multidetector volumetric imaging was performed from the superior aspect of the liver through the pubic symphysis. Sagittal and coronal reformatted images were obtained on the technologist's workstation. This CT examination was performed using dose optimization techniques as appropriate, variously including the following: *Automated exposure control *Adjustment of mA and/or kV according to patient size (this includes techniques or standardized protocols for targeted exams where dose is matched to indication/reason for exam; i.e. extremities or head) *Use of iterative reconstruction technique DLP: 242 mGy-cm FINDINGS: RESEARCH PHYSIOLOGIST: Cholecystectomy clips, right total hip replacement stabilizing wires. Nonspecific bowel pattern. LUNG BASES: Hyperinflated lungs with chronic appearing basilar scarring. Nonenlarged heart. No pericardial effusion. LIVER, GALLBLADDER, AND BILIARY TREE: Stable intra and extrahepatic biliary ductal dilatation status post cholecystectomy. No hepatic lesions. PANCREAS: No change prominent pancreatic duct in the head. SPLEEN: Unremarkable. ADRENAL GLANDS: Unremarkable. KIDNEYS AND URETERS: The kidneys are normal in size, shape, and attenuation. No hydronephrosis, hydroureter, or calculi seen. Stable simple appearing renal cysts. 1.5 cm exophytic left upper pole soft tissue density has been present dating back to 2012 is stable from 2018 and was thought to represents proteinaceous or hemorrhagic cyst on 2019 MRI. No perinephric stranding. BLADDER: Under distended, possible thick-walled urinary bladder. GASTROINTESTINAL TRACT: Study limited by paucity of fat and lack of oral contrast. Small hiatal hernia. Decompressed stomach. No CT evidence of bowel obstruction. Fecal retention and diverticulosis without diverticulitis. ABDOMINAL WALL: No significant hernia is appreciated. LYMPH NODES: Normal. VASCULAR: Dense atherosclerotic calcifications nonaneurysmal aorta and iliac arteries. PELVIC VISCERA: Degraded by right hip replacement artifact. Atrophic uterus, endometrial thickening not excluded. Phleboliths. OSSEOUS STRUCTURES: Right total hip replacement. Scoliosis and degenerative changes. L3-L4 and L4-L5 disc protrusions. CT/CT abdomen pelvis wo IV con IMPRESSION: No acute intra-abdominal or pelvic pathology given significant study limitations. Fecal retention. Multiple stable findings as described above. Endometrial thickening in atrophic uterus not excluded. Consider pelvic ultrasound. Fleischner guidelines were followed.
--- NOTE | ~2023-08-22 | US_ITS ---
EXAMINATION: US PELVIS CLINICAL INFORMATION: Pain COMPARISON: None available. TECHNIQUE: Ultrasound of the pelvis is performed using both transabdominal and transvaginal transducers along with Doppler. Transvaginal imaging is performed due to inadequate visualization transabdominally. FINDINGS: Uterus is surgically absent. Adnexa: Neither ovary is visualized but no adnexal lesion is demonstrated. No free fluid. US/US pelvic and transvaginal IMPRESSION: Neither ovary is visualized but no adnexal lesion is demonstrated. Uterus is surgically absent.
--- NOTE | ~2023-08-22 | XR_ITS ---
EXAMINATION: XR LUMBOSACRAL SPINE CLINICAL INFORMATION: Back pain COMPARISON: Previous x-ray November 2019 TECHNIQUE: Three views of the lumbosacral spine. FINDINGS: There is mild curvature of the lumbar spine to the left. Bone alignment is otherwise normal. There is a mild old-appearing compression fracture of the superior end plate of the left side of the L2 vertebral body. No acute fracture. Degenerative disc disease from L3-L4 to L5-S1. Lower lumbar spine facet arthritis. Atherosclerotic disease. Right hip replacement. Surgical clips in the right upper quadrant. Partially visualized dialysis catheter. XR/XR lumbar spine 2-3V IMPRESSION: Degenerative changes. Mild old-appearing L2 vertebral body compression fracture. No acute fracture.
[2023-08-22 11:31] VITALS: BP 112/75; PULSE 97; O2SAT 97; BMI 17.7
--- NOTE | 2023-08-22 11:34 | PC.NURSE ---
Patient reports 10/10 right sided abdominal pain that started yesterday. States has vomited 5-6 times since yesterday. Patient with covered fistula to right arm, and dialysis cath on right side of chest. Patient reports get dialysis tue, th, and sat, with last treatment yesterday.
--- NOTE | 2023-08-22 11:39 | ED_ITS ---
HPI - Abdominal Pain General Chief Complaint: Abdominal Pain Stated Complaint: LOWER R SIDED ABD PAIN Time Seen by Provider: 08/22/23 11:27 Source: patient, EMS and old records reviewed Mode of arrival: EMS Limitations: no limitations History of Present Illness HPI narrative: 82 yo female with history of ESRD on HD T//Fri, osteoarthrtitis, anemia, CHF, COPD, HTN, anxiety/depression, GERD, hiatial hernia, hx cholecystectomy who presents to the ER via EMS for evaluation of worsening lower abdominal pain that started yesterday. She states the pain is across her entire lower abdomen as well as in her epigastric area. She has vomited 5-6 times since yesterday. Had normal BM yesterday and is passing gas. She states she also has dysuria that started 2 days ago. She reports bilateral shoulder pain and lower back pain as well. No chest pain or SOB. No trauma or injury. No known sick contacts. She had a full HD session yesterday and felt fine during it. MD elicited complaint: abdominal pain Pertinent past history: diverticulitis (reports history of this but not in her chart upon review) Onset (ago): day(s) (1) Pain Consistency: constant Location: RLQ and LLQ Severity: severe Quality: stabbing Radiation: epigastric Exacerbating factors: nothing Relieving factors: nothing Associated symptoms: nausea, vomiting and dysuria Related Data Home Medications Medication Instructions Recorded Confirmed albuterol sulfate 2.5 mg/3 mL 1 vial inhalation QID PRN 07/28/20 12/27/22 (0.083 %) solution for nebulization Shortness Of Breath montelukast 10 mg tablet 10 mg PO BEDTIME 07/28/20 12/27/22 sodium chloride 7 % for 1 vial inhalation BID 07/28/20 12/27/22 nebulization albuterol sulfate 90 mcg/actuation 2 puff inhalation Q6H PRN 08/01/20 12/27/22 aerosol inhaler (ProAir HFA) Shortness Of Breath cholecalciferol (vitamin D3) 50 50 mcg PO DAILY 08/01/20 12/27/22 mcg (2,000 unit) tablet cyclobenzaprine 10 mg tablet 10 mg PO TID PRN Muscle Spasm 08/01/20 12/27/22 ferrous sulfate 325 mg (65 mg 325 mg PO BID 08/01/20 12/27/22 iron) tablet fluoxetine 40 mg capsule 40 mg PO DAILY 08/01/20 12/27/22 fluticasone propionate 50 2 spray intranasal DAILY PRN Nasal 08/01/20 12/27/22 mcg/actuation nasal Congestion spray,suspension (Flonase Allergy Relief) lorazepam 0.5 mg tablet 0.5 mg PO BID 08/01/20 12/27/22 mirtazapine 7.5 mg tablet 7.5 mg PO BEDTIME 08/01/20 12/27/22 pantoprazole 40 mg tablet,delayed 40 mg PO DAILY 08/01/20 12/27/22 release atorvastatin 40 mg tablet 40 mg PO DAILY 06/19/22 12/27/22 cetirizine 10 mg tablet 10 mg PO DAILY 06/19/22 12/27/22 fluticasone propionate 115 2 puff inhalation BID 06/19/22 12/27/22 mcg-salmeterol 21 mcg/actuation HFA inhaler (Advair HFA) latanoprost 0.005 % eye drops 1 drp ophthalmic (eye) BEDTIME 06/19/22 12/27/22 fxaubrzazv-gdtpngfwbhtru-fiumqkth 1 tab PO Q12H PRN Headache 12/09/22 12/27/22 50 mg-325 mg-40 mg tablet docusate sodium 100 mg capsule 200 mg PO DAILY PRN Constipation 12/09/22 12/27/22 lidocaine 5 % topical ointment 1 appl topical TID PRN Knee pain 12/09/22 12/27/22 terazosin 1 mg capsule 1 mg PO DAILY 12/09/22 12/27/22 Previous Rx's Medication Instructions Recorded amlodipine 10 mg tablet 10 mg PO DAILY #30 tabs 12/13/22 furosemide 40 mg tablet 40 mg PO DAILY #30 tabs 12/13/22 hydralazine 25 mg tablet 25 mg PO TID #90 tabs 12/13/22 oxycodone-acetaminophen 5 mg-325 1 tab PO Q8H PRN Pain, Moderate 12/13/22 mg tablet #10 tabs sodium bicarbonate 650 mg tablet 650 mg PO BID #60 tabs 12/13/22 dicyclomine 10 mg capsule 10 mg PO QID PRN abdominal pain 08/22/23 #20 caps ondansetron 4 mg disintegrating 4 mg PO Q8H PRN nausea and 08/22/23 tablet vomiting #7 tabs polyethylene glycol 3350 17 17 g PO DAILY #119 grams 08/22/23 gram/dose oral powder (Miralax) Allergies Allergy/AdvReac Type Severity Reaction Status Date / Time codeine [Codeine] Allergy Mild RASH Verified 02/21/23 12:42 Sulfa (Sulfonamide Allergy Mild HIVES Verified 02/21/23 12:42 Antibiotics) [Sulfa (Sulfonamides)] ibuprofen [From Motrin] AdvReac Mild STOMACH Verified 02/21/23 12:42 UPSET, Rectal bleeding Review of Systems Review of Systems Yes all other systems are reviewed and are negative PMFSH Past Medical History Medical History FLORECITA (acute kidney injury) Anemia Anemia Anxiety and depression Asthma Back pain CHF (congestive heart failure) Chronic anemia CKD (chronic kidney disease) CKD (chronic kidney disease) stage 4, GFR 15-29 ml/min COPD (chronic obstructive pulmonary disease) GERD (gastroesophageal reflux disease) Headache Hiatal hernia Hyperkalemia Hyperlipidemia Hypertension Hypertensive urgency Metabolic acidosis Osteoarthritis Surgical History H/O of rectopexy H/O: hysterectomy History of bowel resection History of cholecystectomy History of esophagogastroduodenoscopy (EGD) History of left-sided carotid endarterectomy History of open reduction and internal fixation (ORIF) procedure History of total right hip arthroplasty Hx of breast biopsy Hx of colonoscopy Social History Social History Household Members: Family Household Members Other:: DAUGHTER LAURECE Housing: Condominium Do you presently have visiting nurse or other home services: Yes ([facility]) Alcohol intake: current Alcohol intake frequency: holidays/special occasions only Patient Tobacco Use Status: Former Tobacco user Quit Date: 12 YEARS AGO Years Smoked: 20 Smoked in Last 30 Days: No e-Cigarette/Vaping Use: Never Used Second Hand Smoke Exposure: No Use of substances other than those prescribed or required for medical reasons: No Substance Use Type: Marijuana Advance Directives: Yes Advance Directives on File: Yes Advance Directives Date on File: 09/04/20 service: No Current occupational status: retired Physical Exam ED Vital Signs: Vital Signs - 24 hr 08/22/23 13:08 08/22/23 15:48 Temperature 98.8 F 98.3 F Pulse Rate 75 81 Respiratory Rate 18 16 Blood Pressure 114/67 119/63 Pulse Oximetry 96 98 Oxygen Delivery Method Room Air Room Air BMI result Body Mass Index 17.7 Appearance: Alert, frail elderly female. Oriented X3. Appears uncomfortable. Head: normocephalic, atraumatic. Eyes: Pupils equal, round and reactive to light. ENT: Pharynx normal. No tonsillar swelling or exudate. Neck: Normal inspection. Neck supple. CVS: Normal heart rate and rhythm. Pulses normal. Respiratory: No respiratory distress. Breath sounds normal. Abdomen: Soft with both RLQ and LLQ tenderness w/ guarding, no rebound. normal active +BS x4 Skin: Skin warm and dry. Normal skin color. Normal skin turgor. No rashes. Extremities: No lower extremity edema. No joint swelling. normal ROM of both arms/shoulders, mildly tender bilaterally. Neuro/psych: Oriented X 3. No motor deficit. No sensory deficit. CN II-XII intact. Normal speech and cognition. Course Reevaluation(s) Reevaluation #1: patient required 2 doses of IV fentayl for severe lower abd pain. CT scan without acute findings, fectal retention without evidence of obstruction on exam and no fecal impaction on rectal she is continuing to report severe abdominal pain. she states the only thing that helped with the IV pain medicine. hospitalist TT for admission given ongoing pain Time: 16:12 Medical Decision Making Medical Decision Making MDM Narrative: 82 yo female with history of ESRD on HD T//Fri, osteoarthrtitis, anemia, CHF, COPD, HTN, anxiety/depression, GERD, hiatial hernia, hx cholecystectomy who presents to the ER via EMS for evaluation of worsening lower abdominal pain that started yesterday. tender in bilateral lower quadrants on exam Labs reassuring. LFTs normal. unable to provide UA yet. she required 2 doses of IV fentanyl for cramping pain in the lower abd. UVALDO without any stool in rectal vault. CT scan with some fectal retention but no obstructive pattern, no diverticulitis. Given PO and tolerated well. She would like to wait and see if the pain returns prior to being discharged. bentyl, tylenol and laxative ordered. will reassess 1605 - still having significant pain and states she cannot go home like this. fentanyl worked before and she is requesting more pain mediation. pain continues to be lower abdomen. will get bladder scan and straight cath for urine if able. will TT hospitalist for possible admission given she has required multiple doses of pain meds Differential Diagnosis Differential Diagnoses: The differential diagnosis associated with the presentation includes acute diverticulitis, colitis, bowel obstruction, bowel perforation, UTI, ACS Admission/Observation Consideration of admission/observation: Escalation of care including admission/observation considered Consult Healthcare Provider Management of the patient was discussed with: Hospitalist Dr. Moran TT for admit Lab Data MDM Lab Attestation statement: I reviewed the patient's lab results. stable chronic anemia 08/22/23 11:52 08/22/23 12:28 Labs: Lab Results 08/22/23 08/22/23 Range/Units 11:52 12:28 WBC 9.4 (4.8-10.8) X10*3/uL RBC 3.14 L (4.20-5.50) X10*6/uL Hgb 9.7 L (12.0-16.0) g/dl Hct 30.5 L (37.0-47.0) % MCV 97.1 (80.0-98.0) fL MCH 30.9 (27.0-33.0) pg MCHC 31.8 (31.0-35.0) g/dl RDW 12.8 (11.0-16.0) % Plt Count 230 (160-400) X10*3/uL MPV 10.9 (9.4-12.3) fL Immature Gran % (Auto) 0.4 (0.0-0.4) % Neut % (Auto) 62.3 (45-73) % Lymph % (Auto) 29.3 (20-40) % J[place] % (Auto) 6.1 (2-11) % Eos % (Auto) 1.5 (0-4) % Baso % (Auto) 0.4 (0-2) % Lymph # (Auto) 2.8 (1.2-4.9) X10*3/uL J[place] # (Auto) 0.6 (0.1-1.2) X10*3/uL Eos # (Auto) 0.1 (0.0-0.4) X10*3/uL Baso # (Auto) 0.0 (0.0-0.2) X10*3/uL Abs Immat Gran (auto) 0.04 H (0.00-0.03) X10*3/uL Absolute Neuts (auto) 5.9 (2.0-8.3) x10*3/uL Absolute Nucleated RBC 0.000 (0.0-0.012) X10*3/uL Nucleated RBC % (auto) 0.0 (0.0-0.2) /100WBC Sodium 135 (135-145) mmol/L Potassium 3.8 (3.3-5.1) mmol/L Chloride 96 (96-108) mmol/L Carbon Dioxide 24 (22-29) mmol/L Anion Gap 19 (12-20) BUN 45 H (9-16) mg/dL Creatinine 5.13 H* (0.5-1.4) mg/dL Estim Creat Clear Calc 5.9 Estimated GFR 8 Random Glucose 80 (60-115) mg/dL Calcium 9.8 D (8.4-10.2) mg/dL Magnesium 2.3 (1.6-2.6) mg/dL Total Bilirubin 0.4 (0.0-1.0) mg/dL Direct Bilirubin 0.1 (0.0-0.5) mg/dL AST 38 H (5-31) U/L ALT 15 (0-31) U/L Alkaline Phosphatase 60 (39-117) U/L Troponin I High Sens 13.5 (<3.5-17.0) ng/L Total Protein 7.7 (6.5-8.0) g/dL Albumin 3.6 (3.5-5.0) g/dL Independent Interpretation I performed an independent interpretation of an: EKG and CT Scan Interpretation: ekg w/ normal sinus rhythm, hr 83 bpm, no ST segment elevations or depressions, normal HI interval, normal QTc CT without acute obstruction, no colonic stranding or visible abscess, agree w/ radiology read Radiology Impression Discussion of test interpretation with radiology: I have reviewed the radiologist's reading. Radiologist Impression: EXAMINATION: CT ABDOMEN AND PELVIS WITHOUT CONTRAST CLINICAL INFORMATION: Lower abdominal pain, nausea and vomiting COMPARISON: 05/19/2023 TECHNIQUE: Multidetector volumetric imaging was performed from the superior aspect of the liver through the pubic symphysis. Sagittal and coronal reformatted images were obtained on the technologist's workstation. This CT examination was performed using dose optimization techniques as appropriate, variously including the following: *Automated exposure control *Adjustment of mA and/or kV according to patient size (this includes techniques or standardized protocols for targeted exams where dose is matched to indication/reason for exam; i.e. 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 Nonspecific bowel pattern. LUNG BASES: Hyperinflated lungs with chronic appearing basilar scarring. Nonenlarged heart. No pericardial effusion. LIVER, GALLBLADDER, AND BILIARY TREE: Stable intra and extrahepatic biliary ductal dilatation status post cholecystectomy. No hepatic lesions. PANCREAS: No change prominent pancreatic duct in the head. SPLEEN: Unremarkable. ADRENAL GLANDS: Unremarkable. KIDNEYS AND URETERS: The kidneys are normal in size, shape, and attenuation. No hydronephrosis, hydroureter, or calculi seen. Stable simple appearing renal cysts. 1.5 cm exophytic left upper pole soft tissue density has been present dating back to 2012 is stable from 2018 and was thought to represents proteinaceous or hemorrhagic cyst on 2019 MRI. No perinephric stranding. BLADDER: Under distended, possible thick-walled urinary bladder. GASTROINTESTINAL TRACT: Study limited by paucity of fat and lack of oral contrast. Small hiatal hernia. Decompressed stomach. No CT evidence of bowel obstruction. Fecal retention and diverticulosis without diverticulitis. ABDOMINAL WALL: No significant hernia is appreciated. LYMPH NODES: Normal. VASCULAR: Dense atherosclerotic calcifications nonaneurysmal aorta and iliac arteries. PELVIC VISCERA: Degraded by right hip replacement artifact. Atrophic uterus, endometrial thickening not excluded. Phleboliths. OSSEOUS STRUCTURES: Right total hip replacement. Scoliosis and degenerative changes. L3-L4 and L4-L5 disc protrusions. CT/CT abdomen pelvis wo IV con IMPRESSION: No acute intra-abdominal or pelvic pathology given significant study limitations. Fecal retention. Multiple stable findings as described above. Endometrial thickening in atrophic uterus not excluded. Consider pelvic ultrasound. Independent Historian Clinical information obtained from an independent historian. History obtained from or confirmed by: EMS External Record Review External record reviewed: Office record, Outpatient record, Prior outpatient labs and Prior outpatient radiology Prescription Management I considered prescription management with: Pain Medication and Antibiotic Chronic Conditions Patient?s care impacted by: Hypertension and Other (ESRD) Medications Administered Discontinued Medications Generic Name Dose Route Start Last Admin Trade Name Amairani PRN Reason Stop Dose Admin Acetaminophen 650 mg 08/22/23 14:42 08/22/23 15:55 Acetaminophen 325 Mg Tablet PO 08/22/23 14:43 650 mg ONCE ONE Administration Al Hydroxide/Mg Hydroxide 30 ml 08/22/23 14:41 08/22/23 15:55 Magnesium Hydrox/Alum Hydrox 30 Ml Oral.Susp PO 08/22/23 14:42 30 ml ONCE ONE Administration Dicyclomine HCl 10 mg 08/22/23 14:41 08/22/23 15:55 Dicyclomine Hcl 10 Mg Capsule PO 08/22/23 14:42 10 mg ONCE ONE Administration Fentanyl 50 mcg 08/22/23 12:29 08/22/23 12:35 Fentanyl Citrate/Pf 100 Mcg/2 Ml Vial IVPUSH 08/22/23 12:30 50 mcg ONCE ONE Administration Protocol Fentanyl 50 mcg 08/22/23 13:07 08/22/23 13:12 Fentanyl Citrate/Pf 100 Mcg/2 Ml Vial IVPUSH 08/22/23 13:08 50 mcg ONCE ONE Administration Protocol Ondansetron HCl 4 mg 08/22/23 12:29 08/22/23 12:36 Ondansetron Hcl 4 Mg/2 Ml Vial IVPUSH 08/22/23 12:30 4 mg ONCE ONE Administration Polyethylene Glycol 17 gm 08/22/23 14:41 08/22/23 15:55 Polyethylene Glycol 3350 17 Gm Powd.Pack PO 08/22/23 14:42 17 gm ONCE ONE Administration Critical Care Time Critical Care Time Critical Care Time: Yes Total Critical Care Time: 39 Attestation: I have personally provided critical care time exclusive of time spent on separately billable procedures. Time includes review of lab data, radiology results, discussion with consultants, and monitoring for potential decompensation. Intervention performed as documented. Discharge Plan Discharge Clinical Impression: Abdominal pain Qualifiers: Abdominal location: left lower quadrant Qualified Code(s): R10.32 - Left lower quadrant pain Patient Disposition: Admitted As Inpatient Additional Instructions: Your CT scan showed some constipation. Your lab workup was reassuring Recommend starting the prescribed laxative medication Take the prescribed medication as needed for nausea. Stick to a bland diet while you are not feeling well. Follow up with your doctor If you develop new or worsening symptoms call 911 or come back to the ER for further evaluation.
--- NOTE | 2023-08-22 11:53 | ECG_ITS ---
Test Reason : weakness Blood Pressure : / mmHG Vent. Rate : 083 BPM Atrial Rate : 083 BPM P-R Int : 162 ms QRS Dur : 080 ms QT Int : 388 ms P-R-T Axes : 070 013 061 degrees QTc Int : 455 ms Normal sinus rhythm Normal ECG When compared with ECG of 19-MAY-2023 22:30, No significant change was found Referred By: Theodora Basurto Electronically Signed By:KAHLIL BUSTOS MD
[2023-08-22 11:57] LABS: MANUAL DIFF FLAG NO
[2023-08-22 12:00] LABS: Basophils Percent Auto 0.4 % (0-2); Eosinophils Absolute Auto 0.1 X10*3/uL (0.0-0.4); Eosinophils Percent Auto 1.5 % (0-4); Hematocrit 30.5 % (37.0-47.0); Hemoglobin 9.7 g/dl (12.0-16.0); Imm Gran Abs Auto 0.04 X10*3/uL (0.00-0.03); Imm Gran Pct Auto 0.4 % (0.0-0.4); Lymphocytes Absolute Auto 2.8 X10*3/uL (1.2-4.9); Lymphocytes Percent Auto 29.3 % (20-40); Mean Corpuscular HGB Conc 31.8 g/dl (31.0-35.0); Mean Corpuscular Hemoglobin 30.9 pg (27.0-33.0); Mean Corpuscular Volume 97.1 fL (80.0-98.0); Mean Platelet Volume 10.9 fL (9.4-12.3); Monocytes Absolute Auto 0.6 X10*3/uL (0.1-1.2); Monocytes Percent Auto 6.1 % (2-11); Neutrophils Absolute Auto 5.9 x10*3/uL (2.0-8.3); Neutrophils Percent Auto 62.3 % (45-73); Platelet Count 230 X10*3/uL (160-400); Red Blood Count 3.14 X10*6/uL (4.20-5.50); Red Cell Distribution Width 12.8 % (11.0-16.0); White Blood Count 9.4 X10*3/uL (4.8-10.8)
--- NOTE | 2023-08-22 12:06 | PC.NURSE ---
x2 attempts to start iv line unsuccessful. Patient declined ordered po meds, stating that she does not want meds by mouth she wants them through the IV, provider notified
[2023-08-22] MEDS: fentaNYL citrate/PF 100 MCG/2 ML VIAL 50 MCG IVPUSH ×2 (12:35→13:12)
[2023-08-22] MEDS: ondansetron HCL 4 MG/2 ML VIAL IVPUSH (12:36)
[2023-08-22 12:54] LABS: Alanine Aminotransferase 15 U/L (0-31); Albumin Level 3.6 g/dL (3.5-5.0); Alkaline Phosphatase 60 U/L (39-117); Anion Gap 19 (12-20); Aspartate Amino Transferase 38 U/L (5-31); Bilirubin Direct 0.1 mg/dL (0.0-0.5); Bilirubin Total 0.4 mg/dL (0.0-1.0); Blood Urea Nitrogen 45 mg/dL (9-16); Calcium 9.8 mg/dL (8.4-10.2); Carbon Dioxide 24 mmol/L (22-29); Chloride 96 mmol/L (96-108); Creatinine Clr Calc Pharmacy 5.9; Estimated Glomerular Filt Rate 8; Glucose Random 80 mg/dL (60-115); Magnesium 2.3 mg/dL (1.6-2.6); Potassium 3.8 mmol/L (3.3-5.1); Sodium 135 mmol/L (135-145); Total Protein 7.7 g/dL (6.5-8.0)
--- NOTE | 2023-08-22 13:00 | PC.NURSE ---
Patient reports little pain relief after IV pain medication, provider notified
[2023-08-22 13:08] VITALS: BP 114/67; PULSE 75; RESP 18; TEMP 37.1; O2SAT 96
[2023-08-22 13:08] LABS: Troponin-I High Sensitivity 13.5 ng/L (<3.5-17.0)
--- NOTE | 2023-08-22 13:26 | PC.NURSE ---
NSR on monitor, VSS, medicated per mar. Patient resting quietly but continues to report pain is not improving after IV medication. Provider aware
[2023-08-22 15:48] VITALS: BP 119/63; PULSE 81; RESP 16; TEMP 36.8; O2SAT 98
--- NOTE | 2023-08-22 15:49 | MHC.EDTECH ---
This pct assumed care of pt at 1500 ,vitals takrn ,all extra blankets removed from underneath patient bottom ,pt is in pain ML Cooper aware .,call mojica with in pt reach .
[2023-08-22] MEDS: Magnesium Hydrox/Alum Hydrox 30 ML ORAL.SUSP PO (15:55)
[2023-08-22] MEDS: polyethylene glycoL 3350 17 GM POWD.PACK PO (15:55)
[2023-08-22] MEDS: Dicyclomine HCl 10 MG CAPSULE PO (15:55)
[2023-08-22] MEDS: Acetaminophen 325 MG TABLET 650 MG PO (15:55)
[2023-08-22 16:49] VITALS: BP 123/66; PULSE 84; RESP 16; TEMP 36.4; O2SAT 98
--- NOTE | 2023-08-22 16:53 | PM.IMHP ---
History of Present Illness Date of Service: 08/22/23 Attending physician on admission: Anoop Urrutia Chief Complaint: abdominal/pelvic pain This is an 82-year-old female with history of hypertension, end-stage renal disease on hemodialysis Friday, , Friday, COPD, mood disorder who presents to the emergency department with abdominal/pelvic pain. Patient is a poor historian but states that she began having lower abdominal pain earlier today. She does not have bowel movement daily but denies constipation. She denies any associated symptoms including nausea, vomiting, diarrhea, fever, chills, recent sick contacts. She states that she has intermittent dysuria and that this is not new but rather chronic. In the emergency department her workup was relatively unremarkable, CBC and BMP at baseline. She had CT scan of the abdomen which showed no acute intra-abdominal pathology but did show fecal retention. She received multiple doses of IV narcotics, as well as Bentyl and MiraLax but her pain persisted and she requested IV pain medication for adequate pain control. For this reason should be admitted overnight for observation and pain control. A urinalysis is ordered but pending at the time of admission. Review of Systems Review of Systems: Yes all other systems are reviewed and are negative Constitutional: Constitutional: Denies chills and Denies fever(s) Cardiovascular: Cardiovascular: Denies chest pain, Denies palpitations and Denies dyspnea Respiratory: Respiratory: Denies cough and Denies dyspnea Gastrointestinal: Gastrointestinal: Reports abdominal pain, Denies nausea and Denies vomiting Endocrine: Endocrine: Denies palpitations REPLACED BY [facility] Medical History CKD (chronic kidney disease) stage 4, GFR 15-29 ml/min Metabolic acidosis Hyperkalemia FLORECITA (acute kidney injury) Anemia CHF (congestive heart failure) Headache Hypertensive urgency CKD (chronic kidney disease) Anxiety and depression Hiatal hernia Chronic anemia Hyperlipidemia Back pain Osteoarthritis Anemia COPD (chronic obstructive pulmonary disease) GERD (gastroesophageal reflux disease) Asthma Hypertension Functional capacity: uses cane/walker Surgical History Hx of breast biopsy History of esophagogastroduodenoscopy (EGD) Hx of colonoscopy History of left-sided carotid endarterectomy History of total right hip arthroplasty History of open reduction and internal fixation (ORIF) procedure History of cholecystectomy H/O of rectopexy History of bowel resection H/O: hysterectomy Social History Household Members: Family Household Members Other:: DAUGHTER LAURECE Housing: Condominium Do you presently have visiting nurse or other home services: Yes ([facility]) Alcohol intake: current Alcohol intake frequency: holidays/special occasions only Patient Tobacco Use Status: Former Tobacco user Quit Date: 12 YEARS AGO Years Smoked: 20 Smoked in Last 30 Days: No e-Cigarette/Vaping Use: Never Used Second Hand Smoke Exposure: No Use of substances other than those prescribed or required for medical reasons: No Substance Use Type: Marijuana Advance Directives: Yes Advance Directives on File: Yes Advance Directives Date on File: 09/04/20 service: No Current occupational status: retired [employer] Allergies Allergy/AdvReac Type Severity Reaction Status Date / Time codeine [Codeine] Allergy Mild RASH Verified 02/21/23 12:42 Sulfa (Sulfonamide Allergy Mild HIVES Verified 02/21/23 12:42 Antibiotics) [Sulfa (Sulfonamides)] ibuprofen [From Motrin] AdvReac Mild STOMACH Verified 02/21/23 12:42 UPSET, Rectal bleeding Active Medications: Current Medications Docusate Sodium (Docusate Sodium 100 Mg Capsule) 100 mg PO BEDTIME [facility] Polyethylene Glycol (Polyethylene Glycol 3350 17 Gm Powd.Pack) 17 gm PO DAILY [facility] Home Medications Medication Instructions Recorded Confirmed Last Taken Type albuterol sulfate 2.5 mg/3 mL 1 vial inhalation QID PRN 07/28/20 12/27/22 12/09/22 History (0.083 %) solution for nebulization Shortness Of Breath montelukast 10 mg tablet 10 mg PO BEDTIME 07/28/20 12/27/22 12/09/22 History sodium chloride 7 % for 1 vial inhalation BID 07/28/20 12/27/22 12/09/22 History nebulization albuterol sulfate 90 mcg/actuation 2 puff inhalation Q6H PRN 08/01/20 12/27/22 12/09/22 History aerosol inhaler (ProAir HFA) Shortness Of Breath cholecalciferol (vitamin D3) 50 50 mcg PO DAILY 10/04/1512/27/22 12/27/22 History mcg (2,000 unit) tablet cyclobenzaprine 10 mg tablet 10 mg PO TID PRN Muscle Spasm 08/01/20 12/27/22 12/27/22 History ferrous sulfate 325 mg (65 mg 325 mg PO BID 08/01/20 12/27/22 12/27/22 History iron) tablet fluoxetine 40 mg capsule 40 mg PO DAILY 08/01/20 12/27/22 12/27/22 History fluticasone propionate 50 2 spray intranasal DAILY PRN Nasal 08/01/20 12/27/22 12/09/22 History mcg/actuation nasal Congestion spray,suspension (Flonase Allergy Relief) lorazepam 0.5 mg tablet 0.5 mg PO BID 08/01/20 12/27/22 12/09/22 History mirtazapine 7.5 mg tablet 7.5 mg PO BEDTIME 08/01/20 12/27/22 12/09/22 History pantoprazole 40 mg tablet,delayed 40 mg PO DAILY 08/01/20 12/27/22 12/27/22 History release atorvastatin 40 mg tablet 40 mg PO DAILY 06/19/22 12/27/22 12/27/22 History cetirizine 10 mg tablet 10 mg PO DAILY 06/19/22 12/27/22 12/27/22 History fluticasone propionate 115 2 puff inhalation BID 06/19/22 12/27/22 12/09/22 History mcg-salmeterol 21 mcg/actuation HFA inhaler (Advair HFA) latanoprost 0.005 % eye drops 1 drp ophthalmic (eye) BEDTIME 06/19/22 12/27/22 12/09/22 History gsqchclqjl-juobhvmnipcqf-aliminmt 1 tab PO Q12H PRN Headache 12/09/22 12/27/22 Unknown History 50 mg-325 mg-40 mg tablet docusate sodium 100 mg capsule 200 mg PO DAILY PRN Constipation 12/09/22 12/27/22 12/27/22 History lidocaine 5 % topical ointment 1 appl topical TID PRN Knee pain 12/09/22 12/27/22 Unknown History terazosin 1 mg capsule 1 mg PO DAILY 12/09/22 12/27/22 12/27/22 History Physical Exam Vital Signs and Narrative: Vital Signs: Last Vital Signs Temp 98.3 F 08/22/23 15:48 Pulse 81 08/22/23 15:48 Resp 16 08/22/23 15:48 BP 119/63 08/22/23 15:48 Pulse Ox 98 08/22/23 15:48 O2 Del Method Room Air 08/22/23 15:48 BMI result Body Mass Index 17.7 Const: Other: Frail elderly female lying in bed, appears to be in no acute distress General: alert and awake Nutritional Appearance: thin Orientation/consciousness: patient oriented x3 HEENT: Other: poor dentition Chest: Other: port right chest wall clean with no surrounding erythema Resp: Effort & Inspection: normal respiratory effort, able to speak in complete sentences, no respiratory distress and no use of accessory muscles Cardio: Rate: regular rate GI: Other: +BS, mild LLE, suprapubic tenderness, no guarding or rebound Inspection: No distended Palpation (GI): Soft to palpation Neuro: General: patient oriented x3 and moves all extremities Extrem: Other: RUE fistula with palpable thrill General: Yes no pedal edema Results Labs 08/22/23 11:52 08/22/23 12:28 Labs: Laboratory Results - last 24 hr 08/22/23 08/22/23 11:52 12:28 MCV 97.1 MCH 30.9 MCHC 31.8 RDW 12.8 Plt Count 230 MPV 10.9 Immature Gran % (Auto) 0.4 Neut % (Auto) 62.3 Lymph % (Auto) 29.3 [place] % (Auto) 6.1 Eos % (Auto) 1.5 Baso % (Auto) 0.4 Lymph # (Auto) 2.8 [place] # (Auto) 0.6 Eos # (Auto) 0.1 Baso # (Auto) 0.0 Abs Immat Gran (auto) 0.04 H Absolute Neuts (auto) 5.9 Absolute Nucleated RBC 0.000 Nucleated RBC % (auto) 0.0 Anion Gap 19 Estim Creat Clear Calc 5.9 Estimated GFR 8 Random Glucose 80 Calcium 9.8 D Magnesium 2.3 Total Bilirubin 0.4 Direct Bilirubin 0.1 AST 38 H ALT 15 Alkaline Phosphatase 60 Total Protein 7.7 Albumin 3.6 Imaging Radiologist's Impressions: Impressions Abdomen/Pelvis CT 08/22/23 12:12 IMPRESSION: No acute intra-abdominal or pelvic pathology given significant study limitations. Fecal retention. Multiple stable findings as described above. Endometrial thickening in atrophic uterus not excluded. Consider pelvic ultrasound. Fleischner guidelines were followed. Assessment and Plan (1) Abdominal pain: Qualifiers: Abdominal location: left lower quadrant Qualified Code(s): R10.32 - Left lower quadrant pain Status: Acute Plan This is an 82-year-old female with a history of ESRD on HD, chronic back pain, asthma, CHF, COPD, hypertension, GERD, hyperlipidemia presents to the emergency department with complaints of lower abdominal pain admitted for observation abdominal/pelvic pain possibly r/t constipation as CT shows retention of stool or possible UTI - UA being obtained via straight cath and pending at this time will start bowel regimen Follow urinalysis, start antibiotics if positive for infection If pain persists consider pelvic ultrasound as per CT ESRD on HD , , schedule - last HD, 08/21 nephrology consult to continue HD while inpatient COPD no acute exacerbation continue home inhalers chronic normocytic anemia H/H at baseline r/t anemia of chronic dz for remained of chronic medical conditions, continue home meds when med rec is completed DVT ppx - heparin code status - full code attending - dr urrutia Time Spent With Patient Time: Total time managing care of this patient today ____ minutes. Quality Stroke Does the patient have a stroke diagnosis?: No VTE Prior VTE?: No VTE Risk Level:: Medical - moderate - high VTE Device Contraindication: N/A - Device Ordered VTE Drug Contraindication: N/A - Med Ordered
[2023-08-22] MEDS: traMADoL HCL 50 MG TABLET 25 MG PO ×2 (17:10→22:22)
--- NOTE | 2023-08-22 17:11 | PC.NURSE ---
[facility] notified that patient is being admitted to the hospital
[2023-08-22 17:31] LABS: Appearance Urine Cloudy; Color Urine Yellow; Glucose Urine UA Negative (Negative); Leukocyte Esterase Urine Trace (Negative); Nitrite Urine Negative (Negative); PH 5.5 (5.0-9.0); UMIC TRIGGER UACC YES; Urine Blood Negative (Negative); Urine Ketones Trace mg/dL (Negative); Urine Protein 30 (1+) mg/dL (Neg-Trace)
--- NOTE | 2023-08-22 17:38 | MHC.EDTECH ---
patient urine sample collected and sent to lab ,vitals taken and pt belonging list done .
[2023-08-22 17:45] LABS: Bacteria Urine Trace (None Seen); RBC Urine 0-2 /HPF (0-2); WBC Urine 0-5 /HPF (0-5)
[2023-08-22] MEDS: oxyCODONE HCl Immed Release 5 MG TABLET PO (17:56)
--- NOTE | 2023-08-22 18:01 | PC.NURSE ---
Dru scanned for 95mls , straight cathed, urine sent to lab. Patient continues to report 8/10 pain that has not improved. Medicated with prn oxycodone. patient sitting in bed eating dinner at this time
--- NOTE | 2023-08-22 18:49 | PHA.MEDREC ---
Pharmacy Consult ? Medication Reconciliation Pharmacy has completed the medication reconciliation. Patient had VNA care through [facility] Annabelle Loya to call [facility] on-call service and there nurse could not access the medication list. Contacted patient daughter who confirmed medications. Tara Stout, PharmD
--- NOTE | 2023-08-22 18:49 | PC.NURSE ---
Daughter updated on current condition
--- NOTE | 2023-08-22 19:43 | PC.NURSE ---
report given to RN, will have pt transported to [facility]
[2023-08-22 20:18] VITALS: BP 115/59; PULSE 72; RESP 16; TEMP 36.8
[2023-08-22 20:56] VITALS: BP 130/64; PULSE 78; RESP 16; TEMP 36.6; O2SAT 95
[2023-08-22 21:08] VITALS: BMI 16.8
[2023-08-22] MEDS: 0.9 % Sodium Chloride Flush 3 ML SYRINGE IVFLUSH (22:29)
[2023-08-23] VITALS: BP 125/64; PULSE 82; RESP 16; TEMP 36.3; O2SAT 95
[2023-08-23] MEDS: traMADoL HCL 50 MG TABLET 25 MG PO ×2 (04:18→12:34)
[2023-08-23 04:24] VITALS: BP 113/58; PULSE 79; RESP 16; TEMP 36.5; O2SAT 95
[2023-08-23 07:53] VITALS: BP 128/66; PULSE 85; RESP 16; TEMP 36.8; O2SAT 95
[2023-08-23] MEDS: oxyCODONE HCl Immed Release 5 MG TABLET PO ×2 (08:59→15:57)
--- NOTE | 2023-08-23 11:59 | MHC.CM.PN ---
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
[2023-08-23 12:00] VITALS: BP 111/58; PULSE 82; RESP 17; TEMP 36.3; O2SAT 94
--- NOTE | 2023-08-23 13:43 | HO.PM.IMPN ---
Subjective Subjective Date of Service: 08/23/23 Interval History: Follow up abdomal pain still with some nausea and abdominal pain Physical Exam Vital Signs: Vital Signs: Last Vital Signs Temp 97.4 F 08/23/23 12:00 Pulse 82 08/23/23 12:00 Resp 17 08/23/23 12:00 BP 111/58 L 08/23/23 12:00 Pulse Ox 94 08/23/23 12:00 O2 Del Method Room Air 08/23/23 12:00 BMI result Body Mass Index 16.8 Appearing in no acute distress lung sounds are clear to auscultation heart regular rate rhythm, clear S1, S2 positive bowel sounds, abdomen is soft, nontender neuro patient is alert x3, no focal deficits Objective Data Active Medications Acetaminophen (Acetaminophen 325 Mg Tablet) 650 mg PO Q6H PRN PRN Reason: Pain, Mild (Pain Scale 1-3) Docusate Sodium (Docusate Sodium 100 Mg Capsule) 100 mg PO BEDTIME [facility] Last Admin: 08/22/23 22:27 Dose: Not Given Documented By: JE Non-Admin Reason: med already given earlier Ondansetron HCl (Ondansetron Hcl 4 Mg/2 Ml Vial) 4 mg IVPUSH Q8H PRN PRN Reason: Nausea and Vomiting Oxycodone HCl (Oxycodone Hcl Immed Release 5 Mg Tablet) 5 mg PO Q6H PRN PRN Reason: Pain, Moderate(Pain Scale 4-6) Last Admin: 08/23/23 08:59 Dose: 5 mg Documented By: INDY Polyethylene Glycol (Polyethylene Glycol 3350 17 Gm Powd.Pack) 17 gm PO DAILY [facility] Last Admin: 08/23/23 08:02 Dose: Not Given Documented By: INDY Non-Admin Reason: Given in Dialysis Sodium Chloride (0.9 % Sodium Chloride Flush 3 Ml Syringe) 3 ml IVFLUSH QSHIFT [facility] Last Admin: 08/23/23 08:02 Dose: Not Given Documented By: INDY Non-Admin Reason: Off unit: Dialysis Tramadol HCl (Tramadol Hcl 50 Mg Tablet) 25 mg PO Q4H PRN PRN Reason: Pain, Severe (Pain Scale 7-10) Last Admin: 08/23/23 12:34 Dose: 25 mg Documented By: INDY Labs 08/22/23 11:52 08/22/23 12:28 Labs: Laboratory Results - last 24 hr 08/22/23 17:25 Urine Color Yellow Urine Appearance Cloudy Urine pH 5.5 Ur Specific [place] 1.020 Urine Protein 30 (1+) H Urine Glucose (UA) Negative Urine Ketones Trace Urine Blood Negative Urine Nitrite Negative Ur Leukocyte Esterase Trace H Urine RBC 0-2 Urine WBC 0-5 Ur Squamous Epith Cells 11-20 Urine Bacteria Trace Hyaline Casts 11-20 Assessment and Plan (1) Abdominal pain: Status: Acute Plan This is an 82-year-old female with a history of ESRD on HD, chronic back pain, asthma, CHF, COPD, hypertension, GERD, hyperlipidemia presents to the emergency department with complaints of lower abdominal pain admitted for observation Abdominal/pelvic pain possibly r/t constipation as CT shows retention of stool ua also pending will start bowel regimen Follow urinalysis, start antibiotics if positive for infection pelvic ultrasound essentially negative, no adnexal lesion ESRD on HD , , schedule - last HD, 08/21 nephrology consult to continue HD while inpatient COPD no acute exacerbation continue home inhalers chronic normocytic anemia H/H at baseline r/t anemia of chronic dz DVT ppx - heparin code status - full code attending - dr henriquez Time Spent With Patient Time: Total time managing care of this patient today ____ minutes. Quality Stroke Does the patient have a stroke diagnosis?: No VTE Prior VTE?: No VTE Risk Level:: Medical - moderate - high VTE Device Contraindication: N/A - Device Ordered VTE Drug Contraindication: N/A - Med Ordered
[2023-08-23 15:17] VITALS: BP 99/51; PULSE 94; RESP 14; TEMP 37; O2SAT 94
[2023-08-23] MEDS: 0.9 % Sodium Chloride 1,000 ML 75 ML IVCONT (15:38)
[2023-08-23] MEDS: Lidocaine 4 % Patch ADH..PATCH 1 PATCH TRANSDERMA (15:38)
--- NOTE | 2023-08-23 16:23 | P.PNNP_ITS ---
Subjective Subjective Date of Service: 08/23/23 Interval history: C/o abdomal pain still with some nausea Seen on HD Physical Exam 2 Vital Signs: Vital Signs: Last Vital Signs Temp 98.6 F 08/23/23 15:17 Pulse 94 08/23/23 15:17 Resp 14 08/23/23 15:17 BP 99/51 L 08/23/23 15:17 Pulse Ox 94 08/23/23 15:17 O2 Del Method Room Air 08/23/23 15:17 BMI result Body Mass Index 16.8 Appearing in no acute distress lung sounds are clear to auscultation heart regular rate rhythm, clear S1, S2 positive bowel sounds, abdomen is soft, nontender neuro patient is alert x3, no focal deficits Objective Data Labs 08/22/23 11:52 08/22/23 12:28 Labs: Laboratory Results - last 24 hr 08/22/23 17:25 Urine Color Yellow Urine Appearance Cloudy Urine pH 5.5 Ur Specific [place] 1.020 Urine Protein 30 (1+) H Urine Glucose (UA) Negative Urine Ketones Trace Urine Blood Negative Urine Nitrite Negative Ur Leukocyte Esterase Trace H Urine RBC 0-2 Urine WBC 0-5 Ur Squamous Epith Cells 11-20 Urine Bacteria Trace Hyaline Casts 11-20 Procedures Date of Service Date of Service: 08/23/23 Assessment & Plan Assessment and plan (1) ESRD (end stage renal disease): Status: Acute (2) Hypertension: Status: Acute Plan -ESRD on HD -Abd pain -Anemiat -HyperK - HTN Continue HD Vol removal as tolerated K Per Protocol W/u abd pain Thx Dr. Joseph Time Spent With Patient Time: Total time managing care of this patient today ____ minutes. Progress Note: Quality Stroke Does the patient have a stroke diagnosis?: No
[2023-08-23 19:54] VITALS: BP 86/54; PULSE 85; RESP 16; TEMP 36.6; O2SAT 95
[2023-08-23] MEDS: polyethylene glycoL 3350 17 GM POWD.PACK PO (20:30)
[2023-08-23] MEDS: Docusate Sodium 100 MG CAPSULE PO (20:31)
[2023-08-23] MEDS: Acetaminophen 325 MG TABLET 650 MG PO (20:32)
[2023-08-23] MEDS: 0.9 % Sodium Chloride Flush 3 ML SYRINGE IVFLUSH (20:33)
[2023-08-24] VITALS (7 sets, daily range): BP systolic 105–147; BP diastolic 60–67; PULSE 73–80; RESP 16–18; TEMP 36.2–37; O2SAT 93–98
--- NOTE | 2023-08-24 01:59 | PC.NURSE ---
Addendum entered by Altagracia Luis RN 08/24/23 05:32: @ 0412 pt in room 380 said that she can't sleep, Pt is asking for melatonin. Dr. Joy was notified, and he ordered melatonon. Pt was given melatonin. Addendum entered by Altagracia Luis RN 08/24/23 04:12: @0225 pt in room 380, is asking for pain meds. Pt's bp was 145/65 @ 0000, now 125/60,. Dr. Joy was notified. Dr. Joy said that it was okay to give pt pain med. Pt was given PRN oxycodone 5mg PO. Original Note: @8:47 pm pt in room 380, BP is low, @1517 99/51, 1954 86/54. Pt is asking for pain meds. I gave pt tylenol and explained to her that her BP is low, therefore stronger pain meds cannot be given at this time. Dr. Joy was notified and agreed with not giving stronger pain meds to pt.
[2023-08-24] MEDS: oxyCODONE HCl Immed Release 5 MG TABLET PO ×2 (04:07→10:45)
[2023-08-24] MEDS: 0.9 % Sodium Chloride 1,000 ML 75 ML IVCONT ×2 (04:08→18:08)
[2023-08-24] MEDS: Melatonin 3 MG TABLET 6 MG PO (04:27)
[2023-08-24] MEDS: Lidocaine 4 % Patch ADH..PATCH 1 PATCH TRANSDERMA (07:37)
[2023-08-24] MEDS: polyethylene glycoL 3350 17 GM POWD.PACK PO ×2 (07:37→19:54)
[2023-08-24] MEDS: Omeprazole 20 MG CAPSULE.DR PO (07:38)
[2023-08-24] MEDS: traMADoL HCL 50 MG TABLET 25 MG PO (07:49)
[2023-08-24 08:53] LABS: Appearance Urine Clear; Color Urine Yellow; Glucose Urine UA Negative (Negative); Leukocyte Esterase Urine Small (1+) (Negative); Nitrite Urine Negative (Negative); PH 5.5 (5.0-9.0); Specific Gravity - Urine 1.015 (1.005-1.025); UMIC TRIGGER UACC YES; Urine Blood Negative (Negative); Urine Ketones Negative (Negative); Urine Protein 30 (1+) mg/dL (Neg-Trace)
[2023-08-24 09:07] LABS: Bacteria Urine Trace (None Seen); Hyaline Casts Urine 0-2 /LPF (0-2); RBC Urine 0-2 /HPF (0-2); UACC Culture Trigger YES; WBC Urine 0-5 /HPF (0-5)
[2023-08-24] MEDS: Mineral OiL enema 133 ML ENEMA PR (12:42)
--- NOTE | 2023-08-24 13:03 | P.PNNP_ITS ---
Subjective Subjective Date of Service: 08/24/23 Interval history: C/o abdomal pain still with some nausea Constipated Physical Exam 2 Vital Signs: Vital Signs: Last Vital Signs Temp 97.1 F 08/24/23 11:57 Pulse 77 08/24/23 11:57 Resp 16 08/24/23 11:57 BP 105/61 08/24/23 11:57 Pulse Ox 97 08/24/23 07:43 O2 Del Method Room Air 08/24/23 07:43 BMI result Body Mass Index 16.8 Appearing in no acute distress lung sounds are clear to auscultation heart regular rate rhythm, clear S1, S2 positive bowel sounds, abdomen is soft, nontender neuro patient is alert x3, no focal deficits Objective Data Labs 08/22/23 11:52 08/22/23 12:28 Labs: Laboratory Results - last 24 hr 08/24/23 08:30 Urine Color Yellow Urine Appearance Clear Urine pH 5.5 Ur Specific [place] 1.015 Urine Protein 30 (1+) H Urine Glucose (UA) Negative Urine Ketones Negative Urine Blood Negative Urine Nitrite Negative Ur Leukocyte Esterase Small (1+) H Urine RBC 0-2 Urine WBC 0-5 Ur Squamous Epith Cells 6-10 Urine Bacteria Trace Hyaline Casts 0-2 Urine Yeast Present Procedures Date of Service Date of Service: 08/24/23 Assessment & Plan Assessment and plan (1) ESRD (end stage renal disease): Status: Acute (2) Hypertension: Status: Acute Plan -ESRD on HD -Abd pain -Anemia -HyperK - HTN Continue HD per schedule TTS D/ C IVF Rx constipation Low K diet Thx Dr. Joseph Time Spent With Patient Time: Total time managing care of this patient today ____ minutes. Progress Note: Quality Stroke Does the patient have a stroke diagnosis?: No
[2023-08-24] MEDS: ondansetron HCL 4 MG/2 ML VIAL IVPUSH (14:30)
--- NOTE | 2023-08-24 14:42 | HO.PM.IMPN ---
Subjective Subjective Date of Service: 08/24/23 Interval History: Follow up abdomal pain still with some nausea and abdominal pain Physical Exam Vital Signs: Vital Signs: Last Vital Signs Temp 97.1 F 08/24/23 11:57 Pulse 77 08/24/23 11:57 Resp 16 08/24/23 11:57 BP 105/61 08/24/23 11:57 Pulse Ox 97 08/24/23 07:43 O2 Del Method Room Air 08/24/23 07:43 BMI result Body Mass Index 16.8 Appearing in no acute distress lung sounds are clear to auscultation heart regular rate rhythm, clear S1, S2 positive bowel sounds, abdomen is soft, nontender neuro patient is alert x3, no focal deficits Objective Data Active Medications Acetaminophen (Acetaminophen 325 Mg Tablet) 650 mg PO Q6H PRN PRN Reason: Pain, Mild (Pain Scale 1-3) Last Admin: 08/23/23 20:32 Dose: 650 mg Documented By: AMADOU Docusate Sodium (Docusate Sodium 100 Mg Capsule) 100 mg PO BEDTIME [facility] Last Admin: 08/23/23 20:31 Dose: 100 mg Documented By: AMADOU Sodium Chloride (Ns) 1,000 mls @ 75 mls/hr IVCONT .[id number] [facility] Last Admin: 08/24/23 04:08 Dose: 75 mls/hr Documented By: AMADOU Lidocaine (Lidocaine 4 % Patch Adh..Patch) 1 patch TRANSDERMA DAILY [facility]; Protocol Last Admin: 08/24/23 07:37 Dose: 1 patch Documented By: ZARI Melatonin (Melatonin 3 Mg Tablet) 6 mg PO BEDTIME PRN PRN Reason: Insomnia Last Admin: 08/24/23 04:27 Dose: 6 mg Documented By: AMADOU Omeprazole (Omeprazole 20 Mg Capsule.Dr) 20 mg PO DAILY@0630 [facility] Last Admin: 08/24/23 07:38 Dose: 20 mg Documented By: ZARI Ondansetron HCl (Ondansetron Hcl 4 Mg/2 Ml Vial) 4 mg IVPUSH Q8H PRN PRN Reason: Nausea and Vomiting Last Admin: 08/24/23 14:30 Dose: 4 mg Documented By: ZARI Oxycodone HCl (Oxycodone Hcl Immed Release 5 Mg Tablet) 5 mg PO Q4H PRN PRN Reason: Pain, Moderate(Pain Scale 4-6) Last Admin: 08/24/23 10:45 Dose: 5 mg Documented By: ZARI Polyethylene Glycol (Polyethylene Glycol 3350 17 Gm Powd.Pack) 17 gm PO BID [facility] Last Admin: 08/24/23 07:37 Dose: 17 gm Documented By: ZARI Sodium Chloride (0.9 % Sodium Chloride Flush 3 Ml Syringe) 3 ml IVFLUSH QSHIFT [facility] Last Admin: 08/24/23 07:38 Dose: Not Given Documented By: ZARI Non-Admin Reason: IV Running Tramadol HCl (Tramadol Hcl 50 Mg Tablet) 25 mg PO Q4H PRN PRN Reason: Pain, Severe (Pain Scale 7-10) Last Admin: 08/24/23 07:49 Dose: 25 mg Documented By: ZARI Labs 08/22/23 11:52 08/22/23 12:28 Labs: Laboratory Results - last 24 hr 08/24/23 08:30 Urine Color Yellow Urine Appearance Clear Urine pH 5.5 Ur Specific [place] 1.015 Urine Protein 30 (1+) H Urine Glucose (UA) Negative Urine Ketones Negative Urine Blood Negative Urine Nitrite Negative Ur Leukocyte Esterase Small (1+) H Urine RBC 0-2 Urine WBC 0-5 Ur Squamous Epith Cells 6-10 Urine Bacteria Trace Hyaline Casts 0-2 Urine Yeast Present Assessment and Plan (1) Abdominal pain: Status: Acute Plan This is an 82-year-old female with a history of ESRD on HD, chronic back pain, asthma, CHF, COPD, hypertension, GERD, hyperlipidemia presents to the emergency department with complaints of lower abdominal pain admitted for observation Abdominal/pelvic pain small bowel movement today possibly r/t constipation as CT shows retention of stool ua also pending continue miralax and fleets enema pelvic ultrasound essentially negative, no adnexal lesion ESRD on HD , , schedule - last HD, 08/21 nephrology consult to continue HD while inpatient COPD no acute exacerbation continue home inhalers chronic normocytic anemia H/H at baseline r/t anemia of chronic dz DVT ppx - heparin code status - full code attending - Dr. Urrutia Continue hospital stay for tx of abd pain requiring pain medications and bowel regimen Time Spent With Patient Time: Total time managing care of this patient today ____ minutes. Quality Stroke Does the patient have a stroke diagnosis?: No VTE Prior VTE?: No VTE Risk Level:: Medical - moderate - high VTE Device Contraindication: N/A - Device Ordered VTE Drug Contraindication: N/A - Med Ordered
[2023-08-24] MEDS: Morphine Sulfate 2 MG/ML CARTRIDGE 0.5 MG IVPUSH (14:50)
[2023-08-24] MEDS: Morphine Sulfate 2 MG/ML CARTRIDGE 1 MG IVPUSH (20:07)
[2023-08-25] VITALS (7 sets, daily range): BP systolic 104–143; BP diastolic 56–69; PULSE 70–78; RESP 14–18; TEMP 36.2–36.7; O2SAT 91–96; BMI 16.8
[2023-08-25] MEDS: Morphine Sulfate 2 MG/ML CARTRIDGE 1 MG IVPUSH ×6 (00:11→23:37)
--- NOTE | 2023-08-25 06:04 | PC.NURSE ---
pt had episode of nauseated and vomiting with abd pain. pt requested IV pain meds. dr. Joy notified received Morphine 1mg q4 prn given by this nurse. CONT monitor s/s and pain management.
[2023-08-25] MEDS: Omeprazole 20 MG CAPSULE.DR PO (06:16)
[2023-08-25] MEDS: oxyCODONE HCl Immed Release 5 MG TABLET PO (07:38)
[2023-08-25] MEDS: Acetaminophen 325 MG TABLET 650 MG PO (07:38)
[2023-08-25] MEDS: ondansetron HCL 4 MG/2 ML VIAL IVPUSH ×2 (07:39→18:36)
[2023-08-25] MEDS: Lidocaine 4 % Patch ADH..PATCH 1 PATCH TRANSDERMA (07:43)
[2023-08-25] MEDS: polyethylene glycoL 3350 17 GM POWD.PACK PO ×2 (07:44→23:35)
[2023-08-25] MEDS: 0.9 % Sodium Chloride Flush 3 ML SYRINGE IVFLUSH ×3 (07:44→19:35)
--- NOTE | 2023-08-25 08:05 | P.PNIM_ITS ---
Subjective Subjective Date of Service: 08/25/23 Interval History: Follow up abdomal pain still with some nausea and abdominal pain radiating to back Physical Exam 2 Vital Signs: Vital Signs: Last Vital Signs Temp 98.1 F 08/25/23 07:20 Pulse 73 08/25/23 07:20 Resp 16 08/25/23 07:20 BP 141/65 H 08/25/23 07:20 Pulse Ox 91 L 08/25/23 07:20 O2 Del Method Room Air 08/25/23 07:20 BMI result Body Mass Index 16.8 Appearing in no acute distress lung sounds are clear to auscultation heart regular rate rhythm, clear S1, S2 positive bowel sounds, abdomen is soft, RLQ tenderness radiating to back neuro patient is alert x3, no focal deficits Objective Data Active Medications Acetaminophen (Acetaminophen 325 Mg Tablet) 650 mg PO Q6H PRN PRN Reason: Pain, Mild (Pain Scale 1-3) Last Admin: 08/25/23 07:38 Dose: 650 mg Documented By: SEA Docusate Sodium (Docusate Sodium 100 Mg Capsule) 100 mg PO BEDTIME [facility] Last Admin: 08/24/23 20:02 Dose: Not Given Documented By: JACKI Non-Admin Reason: Patient Refused Lidocaine (Lidocaine 4 % Patch Adh..Patch) 1 patch TRANSDERMA DAILY [facility]; Protocol Last Admin: 08/25/23 07:43 Dose: 1 patch Documented By: SEA Melatonin (Melatonin 3 Mg Tablet) 6 mg PO BEDTIME PRN PRN Reason: Insomnia Last Admin: 08/24/23 04:27 Dose: 6 mg Documented By: AMADOU Morphine Sulfate (Morphine Sulfate 2 Mg/Ml Cartridge) 1 mg IVPUSH Q4H PRN; Protocol PRN Reason: Pain, Severe (Pain Scale 7-10) Last Admin: 08/25/23 04:08 Dose: 1 mg Documented By: JACKI Omeprazole (Omeprazole 20 Mg Capsule.) 20 mg PO DAILY@0630 [facility] Last Admin: 08/25/23 06:16 Dose: 20 mg Documented By: JACKI Ondansetron HCl (Ondansetron Hcl 4 Mg/2 Ml Vial) 4 mg IVPUSH Q8H PRN PRN Reason: Nausea and Vomiting Last Admin: 08/25/23 07:39 Dose: 4 mg Documented By: SEA Oxycodone HCl (Oxycodone Hcl Immed Release 5 Mg Tablet) 5 mg PO Q4H PRN PRN Reason: Pain, Moderate(Pain Scale 4-6) Last Admin: 08/25/23 07:38 Dose: 5 mg Documented By: SEA Polyethylene Glycol (Polyethylene Glycol 3350 17 Gm Powd.Pack) 17 gm PO BID [facility] Last Admin: 08/25/23 07:44 Dose: 17 gm Documented By: SEA Sodium Chloride (0.9 % Sodium Chloride Flush 3 Ml Syringe) 3 ml IVFLUSH QSHIFT [facility] Last Admin: 08/25/23 07:44 Dose: 3 ml Documented By: SEA Tramadol HCl (Tramadol Hcl 50 Mg Tablet) 25 mg PO Q4H PRN PRN Reason: Pain, Severe (Pain Scale 7-10) Last Admin: 08/24/23 07:49 Dose: 25 mg Documented By: KODOSOB Labs 08/22/23 11:52 08/22/23 12:28 Labs: Laboratory Results - last 24 hr 08/24/23 08:30 Urine Color Yellow Urine Appearance Clear Urine pH 5.5 Ur Specific [place] 1.015 Urine Protein 30 (1+) H Urine Glucose (UA) Negative Urine Ketones Negative Urine Blood Negative Urine Nitrite Negative Ur Leukocyte Esterase Small (1+) H Urine RBC 0-2 Urine WBC 0-5 Ur Squamous Epith Cells 6-10 Urine Bacteria Trace Hyaline Casts 0-2 Urine Yeast Present Assessment and Plan (1) Abdominal pain: Status: Acute Plan This is an 82-year-old female with a history of ESRD on HD, chronic back pain, asthma, CHF, COPD, hypertension, GERD, hyperlipidemia presents to the emergency department with complaints of lower abdominal pain admitted for observation Abdominal/pelvic pain small bowel movement today possibly r/t constipation as CT shows retention of stool ua also pending continue miralax and fleets enema pelvic ultrasound essentially negative, no adnexal lesion GI consult pending for continued pain ESRD on HD , , schedule - last HD, 08/21 nephrology consult to continue HD while inpatient COPD no acute exacerbation continue home inhalers chronic normocytic anemia H/H at baseline r/t anemia of chronic dz DVT ppx - heparin code status - full code attending - Dr. Plata Continue hospital stay for tx of abd pain requiring pain medications and bowel regimen Time Spent With Patient Time: Total time managing care of this patient today ____ minutes. Quality Stroke Does the patient have a stroke diagnosis?: No VTE Prior VTE?: No VTE Risk Level:: Medical - moderate - high VTE Device Contraindication: N/A - Device Ordered VTE Drug Contraindication: N/A - Med Ordered
--- NOTE | 2023-08-25 09:29 | HO.PM.IMPN ---
Subjective Subjective Date of Service: 08/25/23 Interval History: Follow up abdomal pain still with some nausea and abdominal pain radiating to back Physical Exam Vital Signs: Vital Signs: Last Vital Signs Temp 98.1 F 08/25/23 07:20 Pulse 73 08/25/23 07:20 Resp 16 08/25/23 07:20 BP 141/65 H 08/25/23 07:20 Pulse Ox 91 L 08/25/23 07:20 O2 Del Method Room Air 08/25/23 07:20 BMI result Body Mass Index 16.8 Appearing in no acute distress lung sounds are clear to auscultation heart regular rate rhythm, clear S1, S2 positive bowel sounds, abdomen is soft, RLQ tenderness neuro patient is alert x3, no focal deficits Objective Data Active Medications Acetaminophen (Acetaminophen 325 Mg Tablet) 650 mg PO Q6H PRN PRN Reason: Pain, Mild (Pain Scale 1-3) Last Admin: 08/25/23 07:38 Dose: 650 mg Documented By: SEA Docusate Sodium (Docusate Sodium 100 Mg Capsule) 100 mg PO BEDTIME [facility] Last Admin: 08/24/23 20:02 Dose: Not Given Documented By: JACKI Non-Admin Reason: Patient Refused Lidocaine (Lidocaine 4 % Patch Adh..Patch) 1 patch TRANSDERMA DAILY [facility]; Protocol Last Admin: 08/25/23 07:43 Dose: 1 patch Documented By: SEA Melatonin (Melatonin 3 Mg Tablet) 6 mg PO BEDTIME PRN PRN Reason: Insomnia Last Admin: 08/24/23 04:27 Dose: 6 mg Documented By: AMADOU Morphine Sulfate (Morphine Sulfate 2 Mg/Ml Cartridge) 1 mg IVPUSH Q4H PRN; Protocol PRN Reason: Pain, Severe (Pain Scale 7-10) Last Admin: 08/25/23 08:56 Dose: 1 mg Documented By: SEA Omeprazole (Omeprazole 20 Mg Capsule.) 20 mg PO DAILY@0630 [facility] Last Admin: 08/25/23 06:16 Dose: 20 mg Documented By: JACKI Ondansetron HCl (Ondansetron Hcl 4 Mg/2 Ml Vial) 4 mg IVPUSH Q8H PRN PRN Reason: Nausea and Vomiting Last Admin: 08/25/23 07:39 Dose: 4 mg Documented By: SEA Oxycodone HCl (Oxycodone Hcl Immed Release 5 Mg Tablet) 5 mg PO Q4H PRN PRN Reason: Pain, Moderate(Pain Scale 4-6) Last Admin: 08/25/23 07:38 Dose: 5 mg Documented By: SEA Polyethylene Glycol (Polyethylene Glycol 3350 17 Gm Powd.Pack) 17 gm PO BID [facility] Last Admin: 08/25/23 07:44 Dose: 17 gm Documented By: SEA Sodium Chloride (0.9 % Sodium Chloride Flush 3 Ml Syringe) 3 ml IVFLUSH QSHIFT [facility] Last Admin: 08/25/23 07:44 Dose: 3 ml Documented By: SEA Tramadol HCl (Tramadol Hcl 50 Mg Tablet) 25 mg PO Q4H PRN PRN Reason: Pain, Severe (Pain Scale 7-10) Last Admin: 08/24/23 07:49 Dose: 25 mg Documented By: KODOSOB Labs 08/22/23 11:52 08/22/23 12:28 Assessment and Plan (1) Abdominal pain: Status: Acute Plan This is an 82-year-old female with a history of ESRD on HD, chronic back pain, asthma, CHF, COPD, hypertension, GERD, hyperlipidemia presents to the emergency department with complaints of lower abdominal pain admitted for observation Abdominal/pelvic pain small bowel movement 08/24/23 possibly r/t constipation as CT shows retention of stool ua neg continue miralax and fleets enema pelvic ultrasound essentially negative, no adnexal lesion GI consult pending for continued pain acute on chronic back pain lidocaine patch narcotic pain medication lumbar spine xray ordered to assess for compression fx ESRD on HD , , schedule - last HD, 08/21 nephrology consult to continue HD while inpatient COPD no acute exacerbation continue home inhalers chronic normocytic anemia H/H at baseline r/t anemia of chronic dz DVT ppx - heparin code status - full code attending - Dr. Plata Continue hospital stay for tx of abd pain requiring pain medications and bowel regimen Time Spent With Patient Time: Total time managing care of this patient today ____ minutes. Quality Stroke Does the patient have a stroke diagnosis?: No VTE Prior VTE?: No VTE Risk Level:: Medical - moderate - high VTE Device Contraindication: N/A - Device Ordered VTE Drug Contraindication: N/A - Med Ordered
--- NOTE | 2023-08-25 11:17 | CONS_ITS ---
DATE OF SERVICE: 08/23/2023 REASON FOR CONSULTATION: Consult requested by the medical team to evaluate and help in management of patient with end-stage renal disease, who presented with abdominal pain and pelvic pain on the right side. HISTORY OF PRESENT ILLNESS: The patient is an 82-year-old female with past medical history of hypertension, ESRD on hemodialysis on Friday, , Friday, who presents to the ER with the above-mentioned complaint. She was a fair historian and apparently the pain started the day of admission, which is yesterday. She has not had bowel movement on a daily basis. She did not have any associated symptoms of nausea, vomiting, diarrhea, chills, fever. There were no sick contacts. She has had intermittent dysuria. In the ER, patient workup revealed the patient had a CBC and BNP, which is close to baseline. She did have a CT scan of the abdomen showed no acute abdominal pathology, but did show fecal retention. She received multiple doses of IV narcotics, Benadryl and MiraLAX and admitted to the hospital for further evaluation. Renal consult was requested for help with management of ESRD. REVIEW OF SYSTEMS: As noted above. Other system reviewed are negative. PAST MEDICAL HISTORY: History of ESRD on hemodialysis on Friday, , Friday; go to [facility]; history of hyperkalemia; CHF; hypertension; hiatal hernia; hyperlipidemia; chronic anemia; back pain; osteoarthritis; anemia; COPD; GERD. PAST SURGICAL HISTORY: Include history of breast biopsy and colonoscopy, left carotid endarterectomy, right hip arthroplasty, ORIF, history of cholecystectomy, , bowel resection, and hysterectomy. PERSONAL AND SOCIAL HISTORY: Patient uses marijuana. Does not smoke. Very occasionally takes alcohol. ALLERGIES: CODEINE, SULFA, AND IBUPROFEN. MEDICATIONS: As an outpatient to reviewed in detail and inpatient medications were also reviewed. PHYSICAL EXAMINATION: GENERAL: Patient is resting in the bed. Awake, alert, oriented x3. VITAL SIGNS: Blood pressure was 111/58, pulse 82, afebrile. HEENT: Pupils equal, round and reactive bilaterally to light. No jugular venous distention is noted. NECK: Supple. No thyromegaly is noted. CARDIOVASCULAR SYSTEM: S1, S2 without rub or murmur. RESPIRATORY SYSTEM: Decreased in bases. No crepitation or rhonchi is noted. ABDOMEN: Soft, nontender. No guarding noted. Bowel sounds normal. EXTREMITIES: No edema. There is right lower quadrant tenderness tenderness. LABORATORY DATA: Labs done today; WBC 9.4, hemoglobin 9.7, hematocrit 30.5, platelets 230. Sodium 134, potassium 3.8, chloride 96, CO2 of 24, BUN 43, creatinine 5.13. Urinalysis shows cloudy urine, specific gravity 1.020, rbc 0 to 2, wbc 0 to 5. IMPRESSION: 1. 82-year-old female with end-stage renal disease, on hemodialysis, admitted with abdominal pain. 2. Abdominal pain, possibly due to constipation/retained stool. 3. Chronic obstructive pulmonary disease, which is stable. 4. 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 5. History of hypertension. The blood pressure was acceptable. Patient needs to get dialyzed on Friday, , Friday. I have arranged hemodialysis for the patient in the inpatient dialysis unit. We will try to remove fluid as tolerated. Potassium per protocol. In regard to constipation and abdominal pain, medical team is using MiraLAX and Colace for now. She is on p.o. iron at home and I recommend discontinuing the medication as we usually give IV iron during dialysis. In regard to anemia, I will check iron stores and consider giving IV iron versus erythropoietin. Patient is on IV fluids at 75 mL/h and I recommend discontinuing the IV fluids if patient able to take adequate p.o. Thank you for allowing me to participate in medical management of this patient. MD ELIZABETH Contreras/JEAN PAUL / [phone]
--- NOTE | 2023-08-25 11:56 | MHC.CLN ---
NUTRITION PATIENT WITH ESRD ON HEMODIALYSIS. DIET=LOW PHOSPHORUS, LOW POTASSIUM. QUALIFIES NON SEVERE, MODERATE, MALNUTRITION IN THE CONTEXT OF CHRONIC ILLNESS. CURRENT INTAKE LESS THAN 25% TO 50%. WILL ORDER ENSURE CLEAR BID SINCE APPROPRIATE WITH DIALYSIS. FOLLOW FOR PO INTAKE OF MEALS AND SUPPLEMENT. SEE CLINICAL NUTRITION ASSESSMENT 08/25/23.
--- NOTE | 2023-08-25 16:31 | PM.EVENT ---
Event Note Date of Service: 08/25/23 Event Note: GI Consult-Full note dictated. History via patient and EMR. Imp: I suspect her nonspecific abdominal pain is at least related to her constipation and intestinal spasm. She is also having back pain and is relatively immobile, which I suspect contributes to her abdominal pains as well. Her abdominal exam is benign at the present time. She has had a recent CT and U/S on this admission that were nonrevealing, as well as a nonrevealing colonoscopy and upper endoscopy in 05/2022. She seems to be eating OK and appears very comfortable at the present time. Rec: Supportive care, diet as tolerated, agree with bowel regimen as you are doing, and try to avoid or minimize narcotics. I will order some antispasmodics to be used as needed to see if that might help. I don't think any further diagnostic testing is required. I did review this with the patient in detail and offered her reassurance. She was comfortable with this. Please advise if I can be of further assistance. Thanks Time Spent With Patient Time: Total time managing care of this patient today ____ minutes.
[2023-08-25] MEDS: Dicyclomine HCl 10 MG CAPSULE PO (18:37)
--- NOTE | 2023-08-25 18:38 | P.PNNP_ITS ---
Subjective Subjective Date of Service: 08/25/23 Interval history: Seen and examined, events noted Physical Exam 2 Vital Signs: Vital Signs: Last Vital Signs Temp 97.8 F 08/25/23 15:03 Pulse 72 08/25/23 15:03 Resp 18 08/25/23 15:03 BP 118/62 08/25/23 15:03 Pulse Ox 95 08/25/23 15:03 O2 Del Method Room Air 08/25/23 15:03 BMI result Body Mass Index 16.8 Const: Other: Frail elderly female lying in bed, appears to be in no acute distress General: alert and awake Nutritional Appearance: thin O rientation/consciousness: patient oriented x3 HEENT: Other: poor dentition Chest: Other: port right chest wall clean with no surrounding erythema Resp: Effort & Inspection: normal respiratory effort, able to speak in complete sentences, no respiratory distress and no use of accessory muscles Cardio: Rate: regular rate GI: Other: +BS, mild LLE, suprapubic tenderness, no guarding or rebound Inspection: No distended Palpation (GI): Soft to palpation Neuro: General: patient oriented x3 and moves all extremities Extrem: Other: RUE fistula with palpable thrill General: Yes no pedal edema Objective Data Labs 08/22/23 11:52 08/22/23 12:28 Microbiology Microbiology Results: Microbiology 08/24/23 Unknown Urine clean catch - Urine chapa top Urine Culture - Final Procedures Date of Service Date of Service: 08/25/23 Assessment & Plan Assessment and plan (1) ESRD (end stage renal disease): Status: Acute (2) Hypertension: Status: Acute Plan -ESRD on HD TTS -Abd pain: ques constipatiuon - back paoin: ques vertebral compression fx vs other -Anemia - HTN Continue HD per schedule TTS Rx constipation consoder CT back to r/oCX Fx D/W med team Time Spent With Patient Time: Total time managing care of this patient today ____ minutes. Progress Note: Quality Stroke Does the patient have a stroke diagnosis?: No
[2023-08-25] MEDS: Docusate Sodium 100 MG CAPSULE PO (23:35)
--- NOTE | 2023-08-25 23:44 | CONS_ITS ---
DATE OF SERVICE: 08/25/2023 REASON FOR CONSULTATION: Abdominal pain and constipation. HISTORY OF PRESENT ILLNESS: This has been obtained from the patient and the medical record. The patient is an 82-year-old female admitted to the hospital several days ago for problems including back pain and abdominal pain. The patient's main medical history is that of chronic renal failure, for which she is presently on hemodialysis 3 times a week. She describes that she has been having fairly chronic lower back and lower abdominal pain. However, this seems to have worsened, which prompted her ER visit and subsequent admission. Her bowel movements are somewhat constipated, although she does have a bowel movement fairly regularly. There has been no evidence of any bleeding. She reports that she is eating fairly well. She describes occasional vomiting, but not daily. She never notices any hematemesis nor coffee-grounds. She denies any significant heartburn or dysphagia. Her abdominal discomfort is rather intermittent, but it does occur at least once a day. It lasts from minutes to an hour. She does report that she is able to eat during the discomfort without any improvement nor worsening. She does have fairly chronic lower back pain, that seems to radiate around the right side as well. She also has bad arthritis in her knees and is relatively limited in her mobility. She does describe that she takes a fair amount of NSAIDs at home. She did have a basically negative colonoscopy and upper endoscopy with Dr. Chiang in May of 2022. Her workup here has included a CT scan describing some constipation, but otherwise without any acute changes. She also had a pelvic ultrasound that was nonrevealing. During the interview with me she reports that she is currently comfortable and not having any significant pain. MEDICATIONS: Currently include acetaminophen, Colace, lidocaine patch, melatonin, morphine p.r.n., omeprazole, Zofran p.r.n., oxycodone p.r.n., MiraLAX and tramadol p.r.n. PAST MEDICAL HISTORY: End-stage renal disease, for which she is on hemodialysis 3 times a week. COPD. Hypertension. Negative upper endoscopy and colonoscopy in May [address] Chiang. She describes a cholecystectomy and hysterectomy. Right hip replacement. Hyperlipidemia. Chronic anemia. Back pain. Arthritis. Breast biopsy. Left carotid endarterectomy. She denies history of NC, stroke, nor diabetes. SOCIAL HISTORY: She lives with her daughter. She does not smoke. Denies any significant alcohol. FAMILY HISTORY: Noncontributory. REVIEW OF SYSTEMS: CONSTITUTIONAL: Her appetite has been fairly good and her energy level has been fair. CARDIAC: No chest pain. PULMONARY: No coughing. No hemoptysis. GI: As above. URINARY: She denies any dysuria or hematuria. NEUROLOGIC: No headache or seizures. PHYSICAL EXAMINATION: GENERAL: The patient is a pleasant, alert, comfortable-appearing female, in no distress. She has been afebrile. SKIN: Warm and dry. Anicteric sclerae. NECK: Supple. CHEST: Clear. CARDIAC: Normal S1, S2. ABDOMEN: Soft, nondistended. Normal bowel sounds. There is some very mild nonspecific tenderness in the right side of the abdomen and lower abdomen, but without mass, rebound, or guarding. LABORATORY DATA: White blood cell count 9.4, hemoglobin stable at 9.7, platelets 230,000. Normal electrolytes. BUN was 45, creatinine 5.1. Total bilirubin 0.4, AST 38, ALT 15, alkaline phosphatase 60, albumin 3.6. IMAGING DATA: CT scan and ultrasound as above. IMPRESSION: Given the patient's clinical history, her good clinical appearance, her fairly benign abdomen, negative CT scan on this admission, and negative endoscopy and colonoscopy last year, I advised her that I do think her abdominal discomfort is worrisome in nature and most likely reflective of some constipation and intestinal spasm. I do not think this reflects any other serious intraabdominal pathology. At this point, I do not think she needs any further diagnostic testing. We did review that her back pain and relative immobility may be contributing to her constipation and abdominal discomfort as well. At this point, I would continue supportive care and diet as tolerated. I would continue her bowel regimen to facilitate a regular bowel regimen and avoid constipation. I would try to avoid or minimize narcotics. I have ordered a low dose of dicyclomine antispasmodic to use as needed to try to give her relief if needed. Again, I do not think any further diagnostic testing is needed. I did review this with the patient in detail and did offer reassurance in that regard. Please advise if I could be of any further assistance during the patient's hospitalization. The patient was comfortable with this plan. Thanks for the consultation. MD ROSE Eden/JEAN PAUL / [phone] CODY
[2023-08-26 02:44] VITALS: BP 146/70; PULSE 70; RESP 16; TEMP 36.4; O2SAT 94
[2023-08-26] MEDS: Morphine Sulfate 2 MG/ML CARTRIDGE 1 MG IVPUSH (05:31)
[2023-08-26] MEDS: Omeprazole 20 MG CAPSULE.DR PO (05:31)
--- NOTE | 2023-08-26 05:35 | PC.NURSE ---
pt had moderate size of BM last night and slept very well. pt feels good this morning. however, she has pain 8/10 in her abd through the right flank. provided morphine 1mg throughout the night. CONT to monitor
[2023-08-26 07:10] VITALS: BP 144/63; PULSE 70; RESP 18; TEMP 37; O2SAT 97
[2023-08-26] MEDS: 0.9 % Sodium Chloride Flush 3 ML SYRINGE IVFLUSH ×3 (07:37→19:34)
[2023-08-26] MEDS: Lidocaine 4 % Patch ADH..PATCH 1 PATCH TRANSDERMA (08:00)
[2023-08-26] MEDS: Dicyclomine HCl 10 MG CAPSULE PO (08:00)
[2023-08-26] MEDS: polyethylene glycoL 3350 17 GM POWD.PACK PO ×2 (08:00→20:29)
--- NOTE | 2023-08-26 08:37 | PM.DS ---
DS: Providers Provider Date of Service: 08/26/23 Date of admission: 08/25/23 08:28 Primary care physician: Fran Alegria MD Consults: 08/22/23 16:47 Consult to Nephrology Routine Consulting Provider: Saulo Joseph Reason for consultation: ESRD on HD; on schedule Has provider been notified: No 08/25/23 08:05 Consult to Gastroenterology Routine Consulting Provider: Noah Ahn Reason for consultation: abdominal pain DS: Diagnosis Discharge Diagnosis (1) ESRD (end stage renal disease): Status: Acute (2) Hypertension: Status: Acute DS: Summary Hospital Course Hospital Course: This is an 82-year-old female with history of hypertension, end-stage renal disease on hemodialysis Friday, , Friday, COPD, mood disorder who presents to the emergency department with abdominal/pelvic pain. Patient is a poor historian but states that she began having lower abdominal pain earlier today. She does not have bowel movement daily but denies constipation. She denies any associated symptoms including nausea, vomiting, diarrhea, fever, chills, recent sick contacts. She states that she has intermittent dysuria and that this is not new but rather chronic. In the emergency department her workup was relatively unremarkable, CBC and BMP at baseline. She had CT scan of the abdomen which showed no acute intra-abdominal pathology but did show fecal retention. She received multiple doses of IV narcotics, as well as Bentyl and MiraLax but her pain persisted and she requested IV pain medication for adequate pain control. For this reason should be admitted overnight for observation and pain control. A urinalysis is ordered but pending at the time of admission. 82-year-old woman treated for abdominal pain with history of IBS. She had multiple imaging studies abdominal CT which showed no acute intra-abdominal or pelvic pathology, did show some fecal retention likely related to constipation. Pelvic/transvaginal ultrasound negative. Lumbar spine x-ray negative for compression fracture as patient was having right upper quadrant pain radiating to her right side. Urine culture negative. He good bowel regimen with oral medications and enema. She was seen evaluated by Gastroenterology, found to have a benign abdomen with history of negative endoscopy and colonoscopy last year. She was advised abdominal discomfort was not worrisome in nature and more reflective of constipation and intestinal spasms. She did not require any further diagnostic testing. Supportive care was recommended with good bowel regimen to avoid constipation. She was started on dicyclomine as needed. Shows also seen and evaluated by Nephrology and has been dialysis size on her regular days of Friday, and Friday. Patient lives with her daughter and will be sent home by ambulance. Acute on chronic back pain. Lumbar spine x-ray negative compression fraction. Supportive care, may use lidocaine patches, receives oxycodone from [facility] COPD. No acute exacerbation during your hospitalization. Continue home inhalers Chronic normocytic anemia. H&H remained at baseline Time Spent with Patient Time attestation: Total time managing care of this patient today ____ minutes. Discharge coordination time: Greater than 30 minutes Quality: Safe Use of Opioids Does Pt have an Active Cancer Diagnosis on the Problem List?: No Quality: Stroke Does the patient have a stroke diagnosis?: No Physical Exam Vital Signs: Vital Signs: Last Vital Signs Temp 98.6 F 08/26/23 07:10 Pulse 70 08/26/23 07:10 Resp 18 08/26/23 07:10 BP 144/63 H 08/26/23 07:10 Pulse Ox 97 08/26/23 07:10 O2 Del Method Room Air 08/26/23 07:10 BMI result Body Mass Index 16.8 Appearing in no acute distress head is normocephalic atraumatic eyes pupils are PERRLA sclera is anicteric mouth throat mucous membranes are intact and moist neck is supple no lymphadenopathy, no JVD noted lung sounds are clear to auscultation heart regular rate rhythm, clear S1, S2 positive bowel sounds, abdomen is soft, nontender neuro patient is alert x3, no focal deficits DS: Data Data Completed and Pending Completed studies during hospitalization [Text1]: Procedures Reposition Right Tibia with Internal Fixation Device, Open Approach (07/31/20) Transfusion of Nonautologous Red Blood Cells into Peripheral Vein, Percutaneous Approach (12/09/22) Discharge Plan Discharge Anticipated Discharge Date/Time: 08/27/23 07:19 Patient Disposition: Home Health Service Discharge Diagnosis: Abdominal pain, constipation Acute on chronic back pain Referrals: Fran Alegria MD [Primary Care Provider] - 1 Week Discharge Medications: New polyethylene glycol 3350 [Miralax] 17 gram/dose powder 17 g PO DAILY Qty: 119 0RF dicyclomine 10 mg capsule 10 mg PO QID PRN (Reason: abdominal pain) Qty: 20 0RF ondansetron 4 mg tablet,disintegrating 4 mg PO Q8H PRN (Reason: nausea and vomiting) Qty: 7 0RF Continued albuterol sulfate 2.5 mg /3 mL (0.083 %) solution for nebulization 1 vial inhalation QID PRN (Reason: Shortness Of Breath) montelukast 10 mg tablet 10 mg PO BEDTIME albuterol sulfate [ProAir HFA] 90 mcg/actuation Hfa Aerosol Inhaler 2 puff INHALATION Q6H PRN (Reason: Shortness Of Breath) fluticasone propionate [Flonase Allergy Relief] 50 mcg/actuation [place]cer,Suspension 2 spray INTRANASAL DAILY PRN (Reason: Nasal Congestion) cholecalciferol (vitamin D3) 50 mcg (2,000 unit) Tablet 50 mcg PO DAILY lorazepam 0.5 mg Tablet 0.5 mg PO BID pantoprazole 40 mg Tablet,Delayed Release (Dr/Ec) 40 mg PO DAILY fluoxetine 40 mg Capsule 40 mg PO DAILY ferrous sulfate 325 mg (65 mg iron) Tablet 325 mg PO BID atorvastatin 40 mg tablet 40 mg PO DAILY cetirizine 10 mg Tablet 10 mg PO DAILY fluticasone propion-salmeterol [Advair HFA] 115-21 mcg/actuation Hfa Aerosol Inhaler 2 puff INHALATION BID dhhranyhsz-grzvcmphxtsrb-rirf 50-325-40 mg tablet 1 tab PO Q12H PRN (Reason: Headache) lidocaine 5 % ointment 1 appl topical TID oxycodone-acetaminophen 5-325 mg tablet 1 tab PO Q8H PRN (Reason: Pain, Moderate) Qty: 10 0RF lisinopril 10 mg tablet 10 mg PO DAILY diclofenac sodium 1 % gel 4 g topical BID Discharge Orders: Discharge Order (Routine); Ordered 08/27/23 Ordered By: Neema Zurita Diet: Advance to usual diet Activity on Discharge: As tolerated Stand Alone Forms: Patient Portal Discharge page Activity Restrictions/Additional Instructions: Your CT scan showed some constipation. Your lab workup was reassuring Recommend starting the prescribed laxative medication Take the prescribed medication as needed for nausea. Stick to a bland diet while you are not feeling well. Follow up with your doctor If you develop new or worsening symptoms call 911 or come back to the ER for further evaluation. Care Plan Goals: Complete resolution of symptoms According to the patient's daughter patient receives oxycodone prescriptions monthly through [facility] [employer]. Prescription monitoring program reflects this Health Concerns: Abdominal pain, constipation Acute on chronic back pain Plan of Treatment: Follow-up with primary care provider as needed Take all medications as prescribed Assessment: See discharge summary Patient Instructions: Abdominal Pain (ED)
--- NOTE | 2023-08-26 10:40 | P.CDIM_ITS ---
PROVIDER RESPONSE TEXT: To clarify, the appropriate diagnosis supported by the clinical indicators: Underweight QUERY TEXT: PHYSICIAN'S DOCUMENTATION REQUEST Date of Query: 08/26/2023 07:31 AM EDT Patient Name: Cristina Figueroa Admit Date: 08/25/2023 Dear Neema Zurita, A review of the medical record indicates additional documentation may be needed. Please review below and update the documentation accordingly. Clinical Indicators: BMI: 16 43.1kg Nutrition notes non-severe malnutrition in the context of chronic illness. Qualifies for moderate malnutrition Order Ensure clear BID If possible, please provide an associated diagnosis related to the abnormal BMI, such as: Underweight Anorexia Malnutrition mild, moderate or severe Other (explain)Clinically unable to determine (explain)Thank you, Joan Cisneros, CCS, CDIS Use of terms such as suspected, likely, concern for, or probable (associated with a specific diagnosi s that is being evaluated, monitored, or treated as if it exists) are acceptable and can be coded in the inpatient se tting, when documented at the time of discharge. Please use your independent medical judgment in providing your response. THIS QUERY IS PART OF THE PERMANENT MEDICAL RECORD
[2023-08-26] MEDS: traMADoL HCL 50 MG TABLET 25 MG PO ×2 (10:47→20:26)
[2023-08-26 11:49] VITALS: BP 144/74; PULSE 82; RESP 18; TEMP 36.1; O2SAT 94
--- NOTE | 2023-08-26 14:09 | P.PNNP_ITS ---
Subjective Subjective Date of Service: 08/26/23 Interval history: Seen and examined, events noted Physical Exam 2 Vital Signs: Vital Signs: Last Vital Signs Temp 96.9 F 08/26/23 11:49 Pulse 82 08/26/23 11:49 Resp 18 08/26/23 11:49 BP 144/74 H 08/26/23 11:49 Pulse Ox 94 08/26/23 11:49 O2 Del Method Room Air 08/26/23 11:49 BMI result Body Mass Index 16.8 Const: Other: Frail elderly female lying in bed, appears to be in no acute distress General: alert and awake Nutritional Appearance: thin O rientation/consciousness: patient oriented x3 HEENT: Other: poor dentition Chest: Other: port right chest wall clean with no surrounding erythema Resp: Effort & Inspection: normal respiratory effort, able to speak in complete sentences, no respiratory distress and no use of accessory muscles Cardio: Rate: regular rate GI: Other: +BS, mild LLE, suprapubic tenderness, no guarding or rebound Inspection: No distended Palpation (GI): Soft to palpation Neuro: General: patient oriented x3 and moves all extremities Extrem: Other: RUE fistula with palpable thrill General: Yes no pedal edema Objective Data Labs 08/22/23 11:52 08/22/23 12:28 Microbiology Microbiology Results: Microbiology 08/24/23 Unknown Urine clean catch - Urine chapa top Urine Culture - Final Procedures Date of Service Date of Service: 08/26/23 Assessment & Plan Assessment and plan (1) ESRD (end stage renal disease): Status: Acute (2) Hypertension: Status: Acute Plan -ESRD on HD TTS -Abd pain: ques constipatiuon - back pain: w/u as noted by hosp team unrevealing -Anemia - HTN Continue HD per schedule TTS Rx constipation Time Spent With Patient Time: Total time managing care of this patient today ____ minutes. Progress Note: Quality Stroke Does the patient have a stroke diagnosis?: No
--- NOTE | 2023-08-26 15:10 | MHC.CM.PN ---
PLAN IS FOR DC Friday08/27/23 NEW REFERRAL TO [facility] PLACED FOR HOME P.T. AND RN SKILLS. DAUGHTER IS NOT FEELING WELL AND PATIENT WILL NEED AMBULANCE RIDE HOME IF SHE IS NOT ABLE TO TRANSPORT PATIENT TOMORROW. PATIENT REQUESTS THAT HER MEDICATION BE FILLED HERE AT [facility] IF POSSIBLE PATIENT AWARE THAT THERE MAY BE A COPAY WITH MEDICATION AND CM WILL NOT KNOW THIS UNTIL THE PRESCRIPTION IS SENT.
[2023-08-26] MEDS: oxyCODONE HCl Immed Release 5 MG TABLET PO (15:12)
[2023-08-26 15:34] VITALS: BP 120/60; PULSE 82; RESP 16; TEMP 36.4; O2SAT 95
--- NOTE | 2023-08-26 16:43 | HO.PM.IMPN ---
Subjective Subjective Date of Service: 08/26/23 Interval History: Follow up abdomal pain still with some nausea and abdominal pain radiating to back Physical Exam Vital Signs: Vital Signs: Last Vital Signs Temp 97.6 F 08/26/23 15:34 Pulse 82 08/26/23 15:34 Resp 16 08/26/23 15:34 BP 120/60 08/26/23 15:34 Pulse Ox 95 08/26/23 15:34 O2 Del Method Room Air 08/26/23 15:34 BMI result Body Mass Index 16.8 Appearing in no acute distress lung sounds are clear to auscultation heart regular rate rhythm, clear S1, S2 positive bowel sounds, abdomen is soft, tender to RUQ radiating to back neuro patient is alert x3, no focal deficits Objective Data Active Medications Acetaminophen (Acetaminophen 325 Mg Tablet) 650 mg PO Q6H PRN PRN Reason: Pain, Mild (Pain Scale 1-3) Last Admin: 08/25/23 07:38 Dose: 650 mg Documented By: SEA Dicyclomine HCl (Dicyclomine Hcl 10 Mg Capsule) 10 mg PO TIDAC PRN PRN Reason: Abdominal discomfort Last Admin: 08/26/23 08:00 Dose: 10 mg Documented By: SEA Docusate Sodium (Docusate Sodium 100 Mg Capsule) 100 mg PO BEDTIME TONIO Last Admin: 08/25/23 23:35 Dose: 100 mg Documented By: JACKI Lidocaine (Lidocaine 4 % Patch Adh..Patch) 1 patch TRANSDERMA DAILY [facility]; Protocol Last Admin: 08/26/23 08:00 Dose: 1 patch Documented By: SEA Melatonin (Melatonin 3 Mg Tablet) 6 mg PO BEDTIME PRN PRN Reason: Insomnia Last Admin: 08/24/23 04:27 Dose: 6 mg Documented By: AMADOU Morphine Sulfate (Morphine Sulfate 2 Mg/Ml Cartridge) 1 mg IVPUSH Q4H PRN; Protocol PRN Reason: Pain, Severe (Pain Scale 7-10) Last Admin: 08/26/23 05:31 Dose: 1 mg Documented By: JACKI Omeprazole (Omeprazole 20 Mg Capsule.) 20 mg PO DAILY@0630 [facility] Last Admin: 08/26/23 05:31 Dose: 20 mg Documented By: JACKI Ondansetron HCl (Ondansetron Hcl 4 Mg/2 Ml Vial) 4 mg IVPUSH Q8H PRN PRN Reason: Nausea and Vomiting Last Admin: 08/25/23 18:36 Dose: 4 mg Documented By: SEA Oxycodone HCl (Oxycodone Hcl Immed Release 5 Mg Tablet) 5 mg PO Q4H PRN PRN Reason: Pain, Moderate(Pain Scale 4-6) Last Admin: 08/26/23 15:12 Dose: 5 mg Documented By: SEA Polyethylene Glycol (Polyethylene Glycol 3350 17 Gm Powd.Pack) 17 gm PO BID [facility] Last Admin: 08/26/23 08:00 Dose: 17 gm Documented By: SEA Sodium Chloride (0.9 % Sodium Chloride Flush 3 Ml Syringe) 3 ml IVFLUSH QSHIFT [facility] Last Admin: 08/26/23 15:20 Dose: 3 ml Documented By: SEA Tramadol HCl (Tramadol Hcl 50 Mg Tablet) 25 mg PO Q4H PRN PRN Reason: Pain, Severe (Pain Scale 7-10) Last Admin: 08/26/23 10:47 Dose: 25 mg Documented By: SEA Labs 08/22/23 11:52 08/22/23 12:28 Assessment and Plan (1) Abdominal pain: Status: Acute Plan This is an 82-year-old female with a history of ESRD on HD, chronic back pain, asthma, CHF, COPD, hypertension, GERD, hyperlipidemia presents to the emergency department with complaints of lower abdominal pain admitted for observation Abdominal/pelvic pain small bowel movement 08/24/23 possibly r/t constipation as CT shows retention of stool ua neg continue miralax and fleets enema pelvic ultrasound essentially negative, no adnexal lesion GI consult> continue bowel regimine, symptoms r/t IBS, continue bentyl acute on chronic back pain lidocaine patch narcotic pain medication lumbar spine xray ordered to assess for compression fx ESRD on HD , , schedule - last HD, 08/21 nephrology consult to continue HD while inpatient COPD no acute exacerbation continue home inhalers chronic normocytic anemia H/H at baseline r/t anemia of chronic dz DVT ppx - heparin code status - full code attending - Dr. Plata Continue hospital stay for tx of abd pain requiring pain medications and bowel regimen Time Spent With Patient Time: Total time managing care of this patient today ____ minutes. Quality Stroke Does the patient have a stroke diagnosis?: No VTE Prior VTE?: No VTE Risk Level:: Medical - moderate - high VTE Device Contraindication: N/A - Device Ordered VTE Drug Contraindication: N/A - Med Ordered
[2023-08-26 19:19] VITALS: BP 139/63; PULSE 93; RESP 19; TEMP 36.4; O2SAT 93
[2023-08-26] MEDS: ondansetron HCL 4 MG/2 ML VIAL IVPUSH (19:28)
[2023-08-26] MEDS: Docusate Sodium 100 MG CAPSULE PO (20:27)
[2023-08-26] MEDS: Acetaminophen 325 MG TABLET 650 MG PO (20:27)
[2023-08-26] MEDS: Melatonin 3 MG TABLET 6 MG PO (20:28)
[2023-08-26 23:41] VITALS: BP 103/66; PULSE 86; RESP 16; TEMP 36.3; O2SAT 95
[2023-08-27 04:00] VITALS: BP 129/68; PULSE 75; RESP 16; TEMP 36.6; O2SAT 95
[2023-08-27] MEDS: Acetaminophen 325 MG TABLET 650 MG PO ×2 (05:41→20:18)
[2023-08-27] MEDS: Omeprazole 20 MG CAPSULE.DR PO (05:41)
[2023-08-27] MEDS: traMADoL HCL 50 MG TABLET 25 MG PO ×3 (05:41→20:20)
[2023-08-27 07:33] VITALS: BP 135/63; PULSE 73; RESP 18; TEMP 36.2; O2SAT 95
[2023-08-27] MEDS: polyethylene glycoL 3350 17 GM POWD.PACK PO ×2 (09:29→20:18)
[2023-08-27] MEDS: Lidocaine 4 % Patch ADH..PATCH 1 PATCH TRANSDERMA (09:29)
[2023-08-27] MEDS: oxyCODONE HCl Immed Release 5 MG TABLET PO ×2 (09:30→16:33)
[2023-08-27] MEDS: 0.9 % Sodium Chloride Flush 3 ML SYRINGE IVFLUSH ×3 (09:35→20:18)
[2023-08-27] MEDS: Dicyclomine HCl 10 MG CAPSULE PO (11:23)
--- NOTE | 2023-08-27 11:54 | MHC.CLN ---
F/U PATIENT WITH ESRD ON HEMODIALYSIS. DIET=LOW PHOSPHORUS, LOW POTASSIUM. INTAKE VARIABLE, 25-100%. RECEIVING ENSURE CLEAR BID SINCE APPROPRIATE WITH DIALYSIS. FOLLOW FOR PO INTAKE OF MEALS AND SUPPLEMENT.
[2023-08-27 12:00] VITALS: BP 114/59; PULSE 86; RESP 18; TEMP 36.6; O2SAT 97
--- NOTE | 2023-08-27 13:05 | MHC.CM.PN ---
IMM 08/25/23 Patient is discharged to home with family support. Transport is booked for 4:30pm bean pick[employer].
[2023-08-27 15:44] VITALS: BP 127/60; PULSE 81; RESP 18; TEMP 36.2; O2SAT 96
[2023-08-27] MEDS: Morphine Sulfate 2 MG/ML CARTRIDGE 1 MG IVPUSH (17:34)
--- NOTE | 2023-08-27 18:20 | P.PNNP_ITS ---
Subjective Subjective Date of Service: 08/27/23 Interval history: Seen and examined, events noted Physical Exam 2 Vital Signs: Vital Signs: Last Vital Signs Temp 97.2 F 08/27/23 15:44 Pulse 81 08/27/23 15:44 Resp 18 08/27/23 15:44 BP 127/60 08/27/23 15:44 Pulse Ox 96 08/27/23 15:44 O2 Del Method Room Air 08/27/23 15:44 BMI result Body Mass Index 16.8 Const: Other: Frail elderly female lying in bed, appears to be in no acute distress General: alert and awake Nutritional Appearance: thin O rientation/consciousness: patient oriented x3 HEENT: Other: poor dentition Chest: Other: port right chest wall clean with no surrounding erythema Resp: Effort & Inspection: normal respiratory effort, able to speak in complete sentences, no respiratory distress and no use of accessory muscles Cardio: Rate: regular rate GI: Other: +BS, mild LLE, suprapubic tenderness, no guarding or rebound Inspection: No distended Palpation (GI): Soft to palpation Neuro: General: patient oriented x3 and moves all extremities Extrem: Other: RUE fistula with palpable thrill General: Yes no pedal edema Objective Data Labs 08/22/23 11:52 08/22/23 12:28 Microbiology Microbiology Results: Microbiology 08/24/23 Unknown Urine clean catch - Urine chapa top Urine Culture - Final Procedures Date of Service Date of Service: 08/27/23 Assessment & Plan Assessment and plan (1) ESRD (end stage renal disease): Status: Acute (2) Hypertension: Status: Acute Plan -ESRD on HD TTS -Abd pain: improved - back pain: on/off -Anemia - HTN Continue HD per schedule TTS d/c planning Time Spent With Patient Time: Total time managing care of this patient today ____ minutes. Progress Note: Quality Stroke Does the patient have a stroke diagnosis?: No
--- NOTE | 2023-08-27 18:22 | PC.NURSE ---
Patient was scheduled to be discharged today and refused to go. Patient c/o uncontrolled pain, nausea and vomiting. Patient was offered oral pain medication and took it, upon assessment patient stated that the medication does not help and that she most likely vomited it and requested IV pain medication. Patient was spitting small amount of clear saliva but continue saying that she was vomiting and unable to eat. Morphine given with better result. Patient refused oral meds and also refused nausea medication.
[2023-08-27 19:56] VITALS: BP 119/62; PULSE 73; RESP 16; TEMP 36.3; O2SAT 98
[2023-08-27] MEDS: Docusate Sodium 100 MG CAPSULE PO (20:18)
[2023-08-27] MEDS: Melatonin 3 MG TABLET 6 MG PO (20:19)
[2023-08-27 22:50] VITALS: BP 126/59; PULSE 79; RESP 16; TEMP 36.6; O2SAT 93
--- NOTE | 2023-08-27 23:33 | PC.NURSE ---
Assumed care 19:00. Pt medicated for non-specific abdominal pain with tylenol and tramadol as ordered and appropriate. Pt since observed sleeping in bed, breathing observed even and unlabored without distress on hourly rounding. Handoff report given 23:00.
[2023-08-28] MEDS: oxyCODONE HCl Immed Release 5 MG TABLET PO ×3 (01:32→12:36)
[2023-08-28 03:55] VITALS: BP 122/65; PULSE 75; RESP 16; TEMP 37.2; O2SAT 95
[2023-08-28] MEDS: Omeprazole 20 MG CAPSULE.DR PO (06:28)
[2023-08-28 07:30] VITALS: BP 140/69; PULSE 69; RESP 18; TEMP 36.2; O2SAT 95
[2023-08-28] MEDS: 0.9 % Sodium Chloride Flush 3 ML SYRINGE IVFLUSH (07:52)
[2023-08-28] MEDS: polyethylene glycoL 3350 17 GM POWD.PACK PO (07:52)
[2023-08-28] MEDS: Lidocaine 4 % Patch ADH..PATCH 1 PATCH TRANSDERMA (07:53)
[2023-08-28] MEDS: ondansetron HCL 4 MG/2 ML VIAL IVPUSH (12:36)
[2023-08-28] MEDS: Acetaminophen 325 MG TABLET 650 MG PO (12:54)
[2023-08-28 13:15] VITALS: BP 145/80; PULSE 76; RESP 18; TEMP 36.5; O2SAT 96
--- NOTE | 2023-08-28 14:08 | MHC.CM.PN ---
PT CLEARED TO DC YESTERDAY, HOWEVER REFUSED TO LEAVE WHEN TRANSPORT ARRIVED CM SPOKE TO PTS DAUGHTER, CARMELINA, TODAY WHO IS CURRENTLY ADMITTED AND IN ROOM 471. SHE REPORTS HER [employer] WILL BE HOME ALL DAY AND PT CAN BE TRANSPORTED AT ANY TIME [facility] AVAILABLE FOR 1500 TRANSPORT DAUGHTER AWARE
--- NOTE | 2023-08-28 15:11 | P.PNNP_ITS ---
Subjective Subjective Date of Service: 08/28/23 Interval history: Seen and examined, events noted currently on HD cont w pain issues Physical Exam 2 Vital Signs: Vital Signs: Last Vital Signs Temp 97.7 F 08/28/23 13:15 Pulse 76 08/28/23 13:15 Resp 18 08/28/23 13:15 BP 145/80 H 08/28/23 13:15 Pulse Ox 96 08/28/23 13:15 O2 Del Method Room Air 08/28/23 13:15 BMI result Body Mass Index 16.8 Const: Other: Frail elderly female lying in bed, appears to be in no acute distress General: alert and awake Nutritional Appearance: thin O rientation/consciousness: patient oriented x3 HEENT: Other: poor dentition Chest: Other: port right chest wall clean with no surrounding erythema Resp: Effort & Inspection: normal respiratory effort, able to speak in complete sentences, no respiratory distress and no use of accessory muscles Cardio: Rate: regular rate GI: Other: +BS, mild LLE, suprapubic tenderness, no guarding or rebound Inspection: No distended Palpation (GI): Soft to palpation Neuro: General: patient oriented x3 and moves all extremities Extrem: Other: RUE fistula with palpable thrill General: Yes no pedal edema Objective Data Labs 08/22/23 11:52 08/22/23 12:28 Microbiology Microbiology Results: Microbiology 08/24/23 Unknown Urine clean catch - Urine chapa top Urine Culture - Final Procedures Date of Service Date of Service: 08/28/23 Assessment & Plan Assessment and plan (1) ESRD (end stage renal disease): Status: Acute (2) Hypertension: Status: Acute Plan -ESRD on HD TTS -Abd pain: cnt on /off - back pain: on/off -Anemia - HTN Continue HD per schedule TTS d/c planning Time Spent With Patient Time: Total time managing care of this patient today ____ minutes. Progress Note: Quality Stroke Does the patient have a stroke diagnosis?: No
== END 2023-08-28 17:15 | disposition home health service (06) | DRG 391 ==
LOC: HO.ED 16:16 → HO.EDOVER 16:55 → HO.S3 19:21
PROVIDERS: Nurse Practitioner Acute Care; Physician Assistant; Admitting Provider Physician Assistant Medical; Emergency Provider Emergency Medicine Emergency Medical Services; PCP Internal Medicine; Visit Provider Physician Assistant Medical
DX: K59.00 Constipation, unspecified (principal); N18.6 End stage renal disease; I12.0 Hypertensive chronic kidney disease with stage 5 chronic kidney disease or end stage renal disease; Z68.1 Body mass index [BMI] 19.9 or less, adult; M54.9 Dorsalgia, unspecified; G89.29 Other chronic pain; R63.6 Underweight; J44.9 Chronic obstructive pulmonary disease, unspecified; D63.1 Anemia in chronic kidney disease; Z99.2 Dependence on renal dialysis; Z87.891 Personal history of nicotine dependence; Z79.51 Long term (current) use of inhaled steroids; Z79.899 Other long term (current) drug therapy
CPT/HCPCS: 36415; 72100; 74176; 76830; 76856; 80048; 80076; 81001; 83735; 84484; 85025; 87086; 90999; 93005; 97161; 99221; 99285; J2270; J2405; J3010

== ENCOUNTER → 2023-08-22 16:49 | Outpatient (BNV) | payer MEDICARE, SELFPAY | PROVIDERS: Admitting Provider Physician Assistant Medical; Emergency Provider Emergency Medicine Emergency Medical Services; PCP Internal Medicine; Visit Provider Nurse Practitioner Acute Care | DX: I12.0 Hypertensive chronic kidney disease with stage 5 chronic kidney disease or end stage renal disease (principal); N18.6 End stage renal disease | CPT/HCPCS: 99223; 99232; 99239 ==

== ENCOUNTER 2023-09-24 21:47 | Inpatient (IN) | payer MEDICARE, SELFPAY ==
--- NOTE | ~2023-09-24 | CT_ITS ---
EXAMINATION: CT HEAD WITHOUT CONTRAST CT CERVICAL SPINE WITHOUT CONTRAST CLINICAL INFORMATION: Fall. Pain. COMPARISON: None available. TECHNIQUE: Contiguous axial imaging was performed from the skull base to vertex without intravenous administration of contrast. This CT examination was performed using dose optimization techniques as appropriate, variously including the following: *Automated exposure control *Adjustment of mA and/or kV according to patient size (this includes techniques or standardized protocols for targeted exams where dose is matched to indication/reason for exam; i.e. extremities or head) *Use of iterative reconstruction technique DLP: 808 mGy-cm FINDINGS: There is mild cerebral volume loss with prominence of the lateral and the third ventricles. The cortical sulci are widened appropriately. The fourth ventricle and basal cisterns are normally outlined. There is mild bilateral periventricular and central white matter diminished attenuation. There is no acute territorial defect, hemorrhage or midline shift. The extra-axial spaces are unremarkable. Calvarium: Intact. Maxillofacial sinuses and mastoids: Clear as visualized. Cervical spine: There is straightening of the expected cervical spine curvature. There is an anterior plate and vertebral body screws at C2 and 63. The hardware is intact. There is moderate C4-C5 to C6-C7 disc degenerative change with loss of disc space, endplate change and posterior osteophytes associated with diffuse trne-mx-jigguoqh facet osteoarthritic hypertrophic change with multilevel mild spinal canal and multilevel scfz-vf-nodennsq neuroforaminal narrowing. There is no fracture. CT/CT head/brain wo IV con IMPRESSION: No acute intracranial abnormality. Straightening of the cervical spine curvature. Postoperative and degenerative change of the cervical spine. No fracture identified.
--- NOTE | ~2023-09-24 | CT_ITS ---
EXAMINATION: CT HEAD WITHOUT CONTRAST CT CERVICAL SPINE WITHOUT CONTRAST CLINICAL INFORMATION: Fall. Pain. COMPARISON: None available. TECHNIQUE: Contiguous axial imaging was performed from the skull base to vertex without intravenous administration of contrast. This CT examination was performed using dose optimization techniques as appropriate, variously including the following: *Automated exposure control *Adjustment of mA and/or kV according to patient size (this includes techniques or standardized protocols for targeted exams where dose is matched to indication/reason for exam; i.e. extremities or head) *Use of iterative reconstruction technique DLP: 808 mGy-cm FINDINGS: There is mild cerebral volume loss with prominence of the lateral and the third ventricles. The cortical sulci are widened appropriately. The fourth ventricle and basal cisterns are normally outlined. There is mild bilateral periventricular and central white matter diminished attenuation. There is no acute territorial defect, hemorrhage or midline shift. The extra-axial spaces are unremarkable. Calvarium: Intact. Maxillofacial sinuses and mastoids: Clear as visualized. Cervical spine: There is straightening of the expected cervical spine curvature. There is an anterior plate and vertebral body screws at C2 and 63. The hardware is intact. There is moderate C4-C5 to C6-C7 disc degenerative change with loss of disc space, endplate change and posterior osteophytes associated with diffuse aqmn-bf-pumbfzpe facet osteoarthritic hypertrophic change with multilevel mild spinal canal and multilevel dwij-xf-ulzgdjsn neuroforaminal narrowing. There is no fracture. CT/CT cervical spine wo IV con IMPRESSION: No acute intracranial abnormality. Straightening of the cervical spine curvature. Postoperative and degenerative change of the cervical spine. No fracture identified.
--- NOTE | ~2023-09-24 | CT_ITS ---
EXAMINATION: CT LUMBAR SPINE WITHOUT CONTRAST CLINICAL INFORMATION: Fall. Low back pain. COMPARISON: X-ray performed 08/25/2023. MRI of the lumbar spine performed 09/05/2018. TECHNIQUE: Contiguous axial noncontrast images of the lumbar spine obtained. Sagittal and coronal reformatted images also obtained. This CT examination was performed using dose optimization techniques as appropriate, variously including the following: *Automated exposure control *Adjustment of mA and/or kV according to patient size (this includes techniques or standardized protocols for targeted exams where dose is matched to indication/reason for exam; i.e. extremities or head) *Use of iterative reconstruction technique DLP; 258 mGy-cm FINDINGS: There is mild curvature of the lumbar spine convex to the left. There is 6 mm left lateral listhesis L4 over L5. The sagittal alignment is within normal limits. There is mild loss of height of the L2 vertebral body. The remaining vertebral body heights are maintained. There is moderate L5-S1 disc degenerative change and mild to moderate disc degenerative changes throughout the remaining lumbar spine with loss of disc space, endplate change and posterior osteophytes associated with multilevel diffuse disc bulging, multilevel ligamentum flavum hypertrophy and mild to moderate diffuse facet osteoarthritic hypertrophic change with multilevel ebgj-uv-wuyjqdvk spinal canal and neuroforaminal narrowing. The soft tissues are unremarkable. There is atherosclerotic plaque of the abdominal aorta. There are diverticula of the sigmoid colon without diverticulitis. CT/CT lumbar spine wo IV con IMPRESSION: Mild L2 compression fracture appears to have been present on x-ray performed 08/25/2023. Diffuse lumbar disc degenerative change with mild curvature of the lumbar spine convex to the left with 6 mm left lateral listhesis L4 over L5. Multilevel fvcw-gv-plpnxqdz spinal canal and neuroforaminal narrowing related to posterior osteophytes, disc bulging, ligamentum flavum hypertrophy and facet osteoarthritic hypertrophic change.
[2023-09-24 22:06] VITALS: BP 160/92; PULSE 86; O2SAT 96; BMI 15.7
[2023-09-24 22:09] VITALS: BP 153/89; PULSE 88; RESP 14; TEMP 36.8; O2SAT 96
--- NOTE | 2023-09-24 22:10 | MHC.EDTECH ---
Patient changed over and walked to bathroom with a walker
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
[2023-09-24] MEDS: Ondansetron ODT 4 MG TAB.RAPDIS TRANSLINGU (22:43)
[2023-09-24] MEDS: Acetaminophen 325 MG TABLET 975 MG PO (22:44)
--- NOTE | 2023-09-24 22:49 | PC.NURSE ---
PT refused to take PO tylenol. Reports nothing by mouth will alleviate the pain and is unable to have x-rays done if not medicated. aware.
[2023-09-24 23:25] LABS: MANUAL DIFF FLAG NO
[2023-09-24 23:26] LABS: Basophils Absolute Auto 0.1 X10*3/uL (0.0-0.2); Basophils Percent Auto 0.8 % (0-2); Eosinophils Absolute Auto 0.2 X10*3/uL (0.0-0.4); Eosinophils Percent Auto 2.9 % (0-4); Hematocrit 24.8 % (37.0-47.0); Hemoglobin 7.8 g/dl (12.0-16.0); Imm Gran Abs Auto 0.04 X10*3/uL (0.00-0.03); Imm Gran Pct Auto 0.6 % (0.0-0.4); Mean Corpuscular HGB Conc 31.5 g/dl (31.0-35.0); Mean Corpuscular Hemoglobin 32.2 pg (27.0-33.0); Mean Corpuscular Volume 102.5 fL (80.0-98.0); Mean Platelet Volume 9.6 fL (9.4-12.3); Monocytes Absolute Auto 0.7 X10*3/uL (0.1-1.2); Monocytes Percent Auto 9.9 % (2-11); NRBC Pct Auto 0.4 /100WBC (0.0-0.2); Neutrophils Absolute Auto 4.3 x10*3/uL (2.0-8.3); Neutrophils Percent Auto 58.8 % (45-73); Platelet Count 301 X10*3/uL (160-400); Red Blood Count 2.42 X10*6/uL (4.20-5.50); Red Cell Distribution Width 16.7 % (11.0-16.0); White Blood Count 7.3 X10*3/uL (4.8-10.8)
[2023-09-24 23:57] LABS: Alanine Aminotransferase 81 U/L (0-31); Albumin Level 3.6 g/dL (3.5-5.0); Alkaline Phosphatase 110 U/L (39-117); Anion Gap 21 (12-20); Aspartate Amino Transferase 97 U/L (5-31); Bilirubin Direct 0.2 mg/dL (0.0-0.5); Bilirubin Total 0.5 mg/dL (0.0-1.0); Blood Urea Nitrogen 50 mg/dL (9-16); Calcium 9.6 mg/dL (8.4-10.2); Carbon Dioxide 25 mmol/L (22-29); Chloride 99 mmol/L (96-108); Creatinine Clr Calc Pharmacy 5.4; Estimated Glomerular Filt Rate 7; Glucose Random 81 mg/dL (60-115); Lipase 110 U/L (8-78); Magnesium 2.1 mg/dL (1.6-2.6); Potassium 4.2 mmol/L (3.3-5.1); Sodium 141 mmol/L (135-145); Total Protein 7.4 g/dL (6.5-8.0)
[2023-09-25] MEDS: Morphine Sulfate 2 MG/ML CARTRIDGE 1 MG IM ×2 (01:08→03:33)
[2023-09-25 01:11] LABS: Appearance Urine Clear; Color Urine Yellow; Glucose Urine UA Negative (Negative); Leukocyte Esterase Urine Trace (Negative); Nitrite Urine Negative (Negative); PH 7.5 (5.0-9.0); UMIC TRIGGER UACC YES; Urine Blood Trace (Negative); Urine Ketones Negative (Negative); Urine Protein 100 (2+) mg/dL (Neg-Trace)
[2023-09-25 01:14] LABS: Bacteria Urine None Seen (None Seen); Hyaline Casts Urine 0-2 /LPF (0-2); RBC Urine 0-2 /HPF (0-2); UACC Culture Trigger YES
[2023-09-25 01:15] LABS: Amphetamine Screen Urine Not Detected (Not Detect); Barbiturates, Urine POSITIVE (Not Detect); Benzodiazepines Screen Urine Not Detected (Not Detect); Cannabinoid Screen Urine Not Detected (Not Detect); Cocaine Screen Urine Not Detected (Not Detect); Fentanyl, urine Not Detected (Not Detect); Opiate Screen Urine Not Detected (Not Detect); Phencyclidine Screen Urine Not Detected (Not Detect)
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
[2023-09-25 01:42] VITALS: BP 167/92; PULSE 77; RESP 16; TEMP 36.8; O2SAT 95
[2023-09-25] MEDS: cefuroxime axetiL 500 MG TABLET PO ×3 (02:10→21:39)
--- NOTE | 2023-09-25 02:13 | PC.NURSE ---
Pt reports some relief from the morphine injection but continues to have back pain, 04/05. Pt is willing to take meds po at this time. notified.
--- NOTE | 2023-09-25 05:27 | PC.NURSE ---
Addendum entered by Sindy Ram 09/25/23 05:29: Ander can be reached at [phone] Original Note: Pts daughter, Ander [place], called stating pt is due for dialysis this morning and requested an update on pts status. notified.
[2023-09-25 06:25] VITALS: BP 129/72; PULSE 80; RESP 18; TEMP 36.8; O2SAT 94
[2023-09-25 08:12] VITALS: BP 149/76; PULSE 84; RESP 20; TEMP 36.8; O2SAT 96
--- NOTE | 2023-09-25 10:25 | P.PNNP_ITS ---
Subjective Subjective Date of Service: 09/25/23 Interval history: Pt feels better Seen on HD Physical Exam 2 Vital Signs: Vital Signs: Last Vital Signs Temp 98.3 F 09/25/23 08:12 Pulse 84 09/25/23 08:12 Resp 20 09/25/23 08:12 BP 149/76 H 09/25/23 08:12 Pulse Ox 96 09/25/23 08:12 O2 Del Method Room Air 09/25/23 08:12 BMI result Body Mass Index 15.7 Const: Other: Frail elderly female lying in bed, appears to be in no acute distress General: alert and awake Nutritional Appearance: thin O rientation/consciousness: patient oriented x3 HEENT: Other: poor dentition Chest: Other: port right chest wall clean with no surrounding erythema Resp: Effort & Inspection: normal respiratory effort, able to speak in complete sentences, no respiratory distress and no use of accessory muscles Cardio: Rate: regular rate GI: Other: +BS, mild LLE, suprapubic tenderness, no guarding or rebound Inspection: No distended Palpation (GI): Soft to palpation Neuro: General: patient oriented x3 and moves all extremities Extrem: Other: RUE fistula with palpable thrill General: Yes no pedal edema Objective Data Labs 09/24/23 23:18 09/24/23 23:18 Labs: Laboratory Results - last 24 hr 09/24/23 09/25/23 23:18 00:51 WBC 7.3 RBC 2.42 L D Hgb 7.8 L Hct 24.8 L MCV 102.5 H MCH 32.2 MCHC 31.5 RDW 16.7 H Plt Count 301 D MPV 9.6 Immature Gran % (Auto) 0.6 H Neut % (Auto) 58.8 Lymph % (Auto) 27.0 [place] % (Auto) 9.9 Eos % (Auto) 2.9 Baso % (Auto) 0.8 Lymph # (Auto) 2.0 [place] # (Auto) 0.7 Eos # (Auto) 0.2 Baso # (Auto) 0.1 Abs Immat Gran (auto) 0.04 H Absolute Neuts (auto) 4.3 Absolute Nucleated RBC 0.030 H Nucleated RBC % (auto) 0.4 H Sodium 141 Potassium 4.2 Chloride 99 Carbon Dioxide 25 Anion Gap 21 H BUN 50 H Creatinine 5.66 H* Estim Creat Clear Calc 5.4 Estimated GFR 7 Random Glucose 81 Calcium 9.6 Magnesium 2.1 Total Bilirubin 0.5 Direct Bilirubin 0.2 AST 97 H ALT 81 H Alkaline Phosphatase 110 Total Protein 7.4 Albumin 3.6 Lipase 110 H Urine Color Yellow Urine Appearance Clear Urine pH 7.5 Ur Specific [place] 1.020 Urine Protein 100 (2+) H Urine Glucose (UA) Negative Urine Ketones Negative Urine Blood Trace H Urine Nitrite Negative Ur Leukocyte Esterase Trace H Urine RBC 0-2 Urine WBC 11-20 H Ur Squamous Epith Cells 3-5 Urine Bacteria None Seen Hyaline Casts 0-2 Urine Opiates Screen Not Detected Urine Fentanyl Screen Not Detected Ur Barbiturates Screen POSITIVE H Ur Phencyclidine Scrn Not Detected Ur Amphetamines Screen Not Detected U Benzodiazepines Scrn Not Detected Urine Cocaine Screen Not Detected U Marijuana (THC) Screen Not Detected Procedures Date of Service Date of Service: 09/25/23 Assessment & Plan Assessment and plan (1) ESRD (end stage renal disease): Status: Inactive (2) Hypertension: Status: Inactive Plan -ESRD on HD TTS -AMS - back pain: on/off -Anemia - HTN Antibiotics as per medical team Continue HD per schedule TTS d/c planning medical and health services manager Pain managemnet Time Spent With Patient Time: Total time managing care of this patient today ____ minutes.
--- NOTE | 2023-09-25 10:30 | PHA.MEDREC ---
Addendum entered by Amarilis Walker RPh 09/25/23 14:20: Patient stated she was using albuterol and another inhaler but does not know the name and has no claims history, excluded from at home meds. Original Note: Pharmacy Consult ? Medication Reconciliation Pharmacy has completed the medication reconciliation. Patient confirmed she takes medications from [facility] but could not recall names and doses. Medications confirmed with Yael Hernandez and Simone and additional medications added based on their fill history. Additional medications added based on claims hx from [facility].
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
--- NOTE | 2023-09-25 13:54 | PC.NURSE ---
PT UP TO BR WITH WALKER
[2023-09-25] MEDS: FLUoxetine HCl 20 MG CAPSULE 40 MG PO (14:07)
[2023-09-25] MEDS: Atorvastatin Calcium 40 MG TABLET PO (14:07)
[2023-09-25] MEDS: Multivitamin TABLET 1 TAB PO (14:07)
[2023-09-25] MEDS: oxyCODONE HCl Immed Release 5 MG TABLET PO ×2 (14:07→21:55)
[2023-09-25] MEDS: Loratadine 10 MG TABLET PO (14:07)
[2023-09-25 14:32] VITALS: BP 130/73; PULSE 81; RESP 20; TEMP 36.6; O2SAT 95
[2023-09-25 16:14] VITALS: BP 110/58; PULSE 83; RESP 18; TEMP 36.6; O2SAT 98
[2023-09-25] MEDS: Sevelamer Carbonate Tablet 800 MG TABLET PO (18:17)
[2023-09-25] MEDS: Butalb/Acetamin/Caff 50/325/40 TABLET 1 TAB PO (18:17)
[2023-09-25] MEDS: Acetaminophen 325 MG TABLET 650 MG PO (18:17)
[2023-09-25] MEDS: LORazepam 0.5 MG TABLET PO (18:17)
[2023-09-25 19:18] VITALS: BP 127/67; PULSE 82; RESP 18; TEMP 36.2; O2SAT 96
[2023-09-25] MEDS: Montelukast Sodium 10 MG TABLET PO (21:39)
[2023-09-25] MEDS: lisinopriL 10 MG TABLET PO (21:39)
[2023-09-25] MEDS: Heparin Sodium,Porcine 5,000 UNIT/ML VIAL 5000 UNIT SUBCUT (21:40)
[2023-09-25] MEDS: 0.9 % Sodium Chloride Flush 3 ML SYRINGE IVFLUSH (21:41)
[2023-09-26] MEDS: Morphine Sulfate 2 MG/ML CARTRIDGE IVPUSH ×3 (00:13→15:49)
[2023-09-26 03:09] VITALS: BP 122/67; PULSE 98; RESP 17; TEMP 36.5; O2SAT 93
[2023-09-26 05:58] LABS: Hematocrit 26.5 % (37.0-47.0); Hemoglobin 8.4 g/dl (12.0-16.0); Mean Corpuscular HGB Conc 31.7 g/dl (31.0-35.0); Mean Corpuscular Hemoglobin 32.8 pg (27.0-33.0); Mean Corpuscular Volume 103.5 fL (80.0-98.0); Mean Platelet Volume 9.4 fL (9.4-12.3); NRBC Pct Auto 0.6 /100WBC (0.0-0.2); Platelet Count 302 X10*3/uL (160-400); Red Blood Count 2.56 X10*6/uL (4.20-5.50); Red Cell Distribution Width 16.7 % (11.0-16.0); White Blood Count 6.6 X10*3/uL (4.8-10.8)
[2023-09-26 06:24] LABS: Anion Gap 15 (12-20); Blood Urea Nitrogen 31 mg/dL (9-16); Calcium 8.5 mg/dL (8.4-10.2); Carbon Dioxide 25 mmol/L (22-29); Chloride 102 mmol/L (96-108); Creatinine Clr Calc Pharmacy 6.3; Estimated Glomerular Filt Rate 9; Glucose Random 83 mg/dL (60-115); Potassium 3.5 mmol/L (3.3-5.1); Sodium 138 mmol/L (135-145)
[2023-09-26 07:09] VITALS: BP 124/71; PULSE 86; RESP 18; TEMP 36.8; O2SAT 95
[2023-09-26] MEDS: Ferrous Sulfate 324 MG TABLET.DR PO (07:18)
[2023-09-26] MEDS: 0.9 % Sodium Chloride Flush 3 ML SYRINGE IVFLUSH ×3 (07:18→20:22)
[2023-09-26] MEDS: Loratadine 10 MG TABLET PO (07:19)
[2023-09-26] MEDS: Omeprazole 20 MG CAPSULE.DR PO (07:19)
[2023-09-26] MEDS: cefuroxime axetiL 500 MG TABLET PO ×2 (07:19→20:21)
[2023-09-26] MEDS: Multivitamin TABLET 1 TAB PO (07:19)
[2023-09-26] MEDS: FLUoxetine HCl 20 MG CAPSULE 40 MG PO (07:19)
[2023-09-26] MEDS: Atorvastatin Calcium 40 MG TABLET PO (07:19)
[2023-09-26 08:00] VITALS: BP 130/74; PULSE 79; RESP 18; TEMP 36.1; O2SAT 95
[2023-09-26] MEDS: Heparin Sodium,Porcine 5,000 UNIT/ML VIAL 5000 UNIT SUBCUT ×2 (10:16→20:22)
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
[2023-09-26] MEDS: Sevelamer Carbonate Tablet 800 MG TABLET PO ×2 (11:50→16:35)
[2023-09-26] MEDS: oxyCODONE HCl Immed Release 5 MG TABLET PO (11:58)
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
[2023-09-26 16:00] VITALS: BP 113/55; PULSE 84; RESP 18; TEMP 37; O2SAT 97
[2023-09-26 16:21] VITALS: BMI 17.7
--- NOTE | 2023-09-26 16:31 | MHC.CLN ---
NUTRITION DIET=REGULAR, CHOPPED. ADDING GELATEIN BID TO PROMOTE NUTRITIONAL INTAKE. PROVIDES 320 KCALS, 40 G PROTEIN. QUALIFIES MODERATELY MALNOURISHED WITH MODERATE DEPLETION OF BODY FAT AND MUSCLE MASS NOTED. FOLLOW FOR INTAKE OF MEALS AND SUPPLEMENT. SEE CLINICAL NUTRITION ASSESSMENT 09/26/23.
--- NOTE | 2023-09-26 18:27 | P.PNNP_ITS ---
Subjective Subjective Date of Service: 09/26/23 Interval history: no issues Physical Exam 2 Vital Signs: Vital Signs: Last Vital Signs Temp 98.6 F 09/26/23 16:00 Pulse 84 09/26/23 16:00 Resp 18 09/26/23 16:00 BP 113/55 L 09/26/23 16:00 Pulse Ox 97 09/26/23 16:00 O2 Del Method Room Air 09/26/23 16:00 BMI result Body Mass Index 17.7 Const: Other: Awake alert appropriate no acute distress General: alert and awake Nutritional Appearance: thin Chest: Other: port right chest wall clean with no surrounding erythema Resp: Other: Clear to auscultation bilaterally no rales rhonchi or wheezes Effort & Inspection: normal respiratory effort, able to speak in complete sentences, no respiratory distress and no use of accessory muscles Cardio: Other: No S4; positive S1-S2; no S3 murmurs rubs or gallops Rate: regular rate GI: Other: Soft nontender nondistended normoactive bowel sounds Inspection: No distended Palpation (GI): Soft to palpation Extrem: Other: No edema bilaterally General: Yes no pedal edema Objective Data Labs 09/26/23 05:44 09/26/23 05:44 Labs: Laboratory Results - last 24 hr 09/26/23 05:44 WBC 6.6 RBC 2.56 L Hgb 8.4 L Hct 26.5 L MCV 103.5 H MCH 32.8 MCHC 31.7 RDW 16.7 H Plt Count 302 MPV 9.4 Absolute Nucleated RBC 0.040 H Nucleated RBC % (auto) 0.6 H Sodium 138 Potassium 3.5 Chloride 102 Carbon Dioxide 25 Anion Gap 15 BUN 31 H Creatinine 4.84 H* Estim Creat Clear Calc 6.3 Estimated GFR 9 Random Glucose 83 Calcium 8.5 D Microbiology Microbiology Results: Microbiology 09/25/23 Unknown Urine clean catch - Urine chapa top Urine Culture - Preliminary Culture too young to evaluate. Procedures Date of Service Date of Service: 09/26/23 Assessment & Plan Assessment and plan (1) ESRD (end stage renal disease): Status: Inactive (2) Hypertension: Status: Inactive Plan 82-year-old female with a PMH significant for?ESRD on HD Tue/[place]/Sat, COPD, GERD, chronic back pain on chronic opioids, and mood disorder who presents to the ED via ambulance for AMS. 1.ESRD on HD //Sat -HD as scheduled outpatient -Ceftin 250 b.i.d. - EPO 20,000u today Time Spent With Patient Time: Total time managing care of this patient today ____ minutes. Progress Note: Quality Stroke Does the patient have a stroke diagnosis?: No
[2023-09-26 19:56] VITALS: BP 141/76; PULSE 77; RESP 18; TEMP 36.8; O2SAT 97
[2023-09-26] MEDS: Montelukast Sodium 10 MG TABLET PO (20:21)
[2023-09-26] MEDS: lisinopriL 10 MG TABLET PO (20:21)
[2023-09-27 04:00] VITALS: BP 148/63; PULSE 77; RESP 16; TEMP 36.2; O2SAT 95
[2023-09-27] MEDS: Morphine Sulfate 2 MG/ML CARTRIDGE IVPUSH ×3 (04:27→19:23)
[2023-09-27 05:31] LABS: MANUAL DIFF FLAG NO
[2023-09-27 05:36] LABS: Basophils Absolute Auto 0.1 X10*3/uL (0.0-0.2); Basophils Percent Auto 1.2 % (0-2); Eosinophils Absolute Auto 0.4 X10*3/uL (0.0-0.4); Eosinophils Percent Auto 5.5 % (0-4); Hematocrit 27.4 % (37.0-47.0); Hemoglobin 8.5 g/dl (12.0-16.0); Imm Gran Abs Auto 0.04 X10*3/uL (0.00-0.03); Imm Gran Pct Auto 0.6 % (0.0-0.4); Lymphocytes Percent Auto 28.7 % (20-40); Mean Corpuscular Hemoglobin 32.6 pg (27.0-33.0); Mean Platelet Volume 9.7 fL (9.4-12.3); Monocytes Absolute Auto 0.7 X10*3/uL (0.1-1.2); Monocytes Percent Auto 10.3 % (2-11); NRBC Pct Auto 0.6 /100WBC (0.0-0.2); Neutrophils Absolute Auto 3.7 x10*3/uL (2.0-8.3); Neutrophils Percent Auto 53.7 % (45-73); Platelet Count 299 X10*3/uL (160-400); Red Blood Count 2.61 X10*6/uL (4.20-5.50); White Blood Count 6.9 X10*3/uL (4.8-10.8)
[2023-09-27 06:05] LABS: Alanine Aminotransferase 41 U/L (0-31); Albumin Level 3.3 g/dL (3.5-5.0); Alkaline Phosphatase 97 U/L (39-117); Anion Gap 19 (12-20); Aspartate Amino Transferase 32 U/L (5-31); Bilirubin Total 0.3 mg/dL (0.0-1.0); Blood Urea Nitrogen 44 mg/dL (9-16); Calcium 8.5 mg/dL (8.4-10.2); Carbon Dioxide 23 mmol/L (22-29); Chloride 101 mmol/L (96-108); Creatinine Clr Calc Pharmacy 4.6; Estimated Glomerular Filt Rate 6; Glucose Fasting 93 mg/dL (60-99); Potassium 4.2 mmol/L (3.3-5.1); Sodium 139 mmol/L (135-145)
[2023-09-27 07:31] VITALS: BP 129/62; PULSE 79; RESP 16; TEMP 36.2; O2SAT 94
[2023-09-27] MEDS: FLUoxetine HCl 20 MG CAPSULE 40 MG PO (09:06)
[2023-09-27] MEDS: cefuroxime axetiL 500 MG TABLET PO ×2 (09:06→22:34)
[2023-09-27] MEDS: Heparin Sodium,Porcine 5,000 UNIT/ML VIAL 5000 UNIT SUBCUT ×2 (09:06→22:35)
[2023-09-27] MEDS: Omeprazole 20 MG CAPSULE.DR PO (09:06)
[2023-09-27] MEDS: Multivitamin TABLET 1 TAB PO (09:06)
[2023-09-27] MEDS: Sevelamer Carbonate Tablet 800 MG TABLET PO ×3 (09:06→17:06)
[2023-09-27] MEDS: Loratadine 10 MG TABLET PO (09:06)
[2023-09-27] MEDS: oxyCODONE HCl Immed Release 5 MG TABLET PO (09:06)
[2023-09-27] MEDS: Atorvastatin Calcium 40 MG TABLET PO (09:07)
[2023-09-27] MEDS: 0.9 % Sodium Chloride Flush 3 ML SYRINGE IVFLUSH ×2 (09:07→17:06)
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
--- NOTE | 2023-09-27 12:35 | P.PNNP_ITS ---
Subjective Subjective Date of Service: 09/27/23 Interval history: HD today Physical Exam 2 Vital Signs: Vital Signs: Last Vital Signs Temp 97.1 F 09/27/23 07:31 Pulse 79 09/27/23 07:31 Resp 16 09/27/23 07:31 BP 129/62 09/27/23 07:31 Pulse Ox 94 09/27/23 07:31 O2 Del Method Room Air 09/27/23 07:31 BMI result Body Mass Index 17.7 Const: Other: Awake alert appropriate no acute distress General: alert and awake Nutritional Appearance: thin Chest: Other: port right chest wall clean with no surrounding erythema Resp: Other: Clear to auscultation bilaterally no rales rhonchi or wheezes Effort & Inspection: normal respiratory effort, able to speak in complete sentences, no respiratory distress and no use of accessory muscles Cardio: Other: No S4; positive S1-S2; no S3 murmurs rubs or gallops Rate: regular rate GI: Other: Soft nontender nondistended normoactive bowel sounds Inspection: No distended Palpation (GI): Soft to palpation Extrem: Other: No edema bilaterally General: Yes no pedal edema Objective Data Labs 09/27/23 05:20 09/27/23 05:20 Labs: Laboratory Results - last 24 hr 09/27/23 05:20 WBC 6.9 RBC 2.61 L Hgb 8.5 L Hct 27.4 L MCV 105.0 H MCH 32.6 MCHC 31.0 RDW 17.0 H Plt Count 299 MPV 9.7 Immature Gran % (Auto) 0.6 H Neut % (Auto) 53.7 Lymph % (Auto) 28.7 [place] % (Auto) 10.3 Eos % (Auto) 5.5 H Baso % (Auto) 1.2 Lymph # (Auto) 2.0 [place] # (Auto) 0.7 Eos # (Auto) 0.4 Baso # (Auto) 0.1 Abs Immat Gran (auto) 0.04 H Absolute Neuts (auto) 3.7 Absolute Nucleated RBC 0.040 H Nucleated RBC % (auto) 0.6 H Sodium 139 Potassium 4.2 Chloride 101 Carbon Dioxide 23 Anion Gap 19 BUN 44 H Creatinine 6.58 H* Estim Creat Clear Calc 4.6 Estimated GFR 6 Fasting Glucose 93 Calcium 8.5 Total Bilirubin 0.3 AST 32 H ALT 41 H Alkaline Phosphatase 97 Total Protein 7.0 Albumin 3.3 L Microbiology Microbiology Results: Microbiology 09/25/23 Unknown Urine clean catch - Urine chapa top Urine Culture - Final Procedures Date of Service Date of Service: 09/27/23 Assessment & Plan Assessment and plan (1) ESRD (end stage renal disease): Status: Inactive (2) Hypertension: Status: Inactive Plan 82-year-old female with a PMH significant for?ESRD on HD Fri/Fri/Fri, COPD, GERD, chronic back pain on chronic opioids, and mood disorder who presents to the ED via ambulance for AMS. 1.ESRD on HD //Fri - HD today - EPO 20,000u dosed 09/26 - Renal diet. - f/u Psych recs for Dementia Time Spent With Patient Time: Total time managing care of this patient today ____ minutes. Progress Note: Quality Stroke Does the patient have a stroke diagnosis?: No
[2023-09-27 16:00] VITALS: BP 112/75; PULSE 68; RESP 16; TEMP 36.8; O2SAT 95
[2023-09-27 20:00] VITALS: BP 105/69; PULSE 69; RESP 16; TEMP 36.8; O2SAT 97
[2023-09-27] MEDS: Montelukast Sodium 10 MG TABLET PO (22:34)
[2023-09-27] MEDS: lisinopriL 10 MG TABLET PO (22:34)
[2023-09-28] MEDS: 0.9 % Sodium Chloride Flush 3 ML SYRINGE IVFLUSH ×4 (00:34→20:29)
[2023-09-28] MEDS: Morphine Sulfate 2 MG/ML CARTRIDGE IVPUSH ×5 (01:28→23:48)
[2023-09-28 01:32] VITALS: BP 130/63; PULSE 75; RESP 16
[2023-09-28 04:00] VITALS: BP 123/63; PULSE 81; RESP 16; TEMP 36.3; O2SAT 97
[2023-09-28] MEDS: Butalb/Acetamin/Caff 50/325/40 TABLET 1 TAB PO ×2 (05:05→23:44)
[2023-09-28 07:49] VITALS: BP 143/70; PULSE 76; RESP 12; TEMP 36.4; O2SAT 96
[2023-09-28] MEDS: Multivitamin TABLET 1 TAB PO (07:52)
[2023-09-28] MEDS: Omeprazole 20 MG CAPSULE.DR PO (07:52)
[2023-09-28] MEDS: cefuroxime axetiL 500 MG TABLET PO ×2 (07:53→20:28)
[2023-09-28] MEDS: Loratadine 10 MG TABLET PO (07:53)
[2023-09-28] MEDS: Sevelamer Carbonate Tablet 800 MG TABLET PO ×3 (07:53→16:55)
[2023-09-28] MEDS: Atorvastatin Calcium 40 MG TABLET PO (07:53)
[2023-09-28] MEDS: FLUoxetine HCl 20 MG CAPSULE 40 MG PO (07:53)
[2023-09-28] MEDS: Heparin Sodium,Porcine 5,000 UNIT/ML VIAL 5000 UNIT SUBCUT ×2 (09:34→20:29)
[2023-09-28] MEDS: ondansetron HCL 4 MG/2 ML VIAL IVPUSH (09:44)
[2023-09-28] MEDS: Acetaminophen 325 MG TABLET 650 MG PO (10:25)
[2023-09-28] MEDS: oxyCODONE HCl Immed Release 5 MG TABLET PO (10:25)
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
[2023-09-28 15:42] VITALS: BP 106/57; PULSE 86; RESP 16; TEMP 36.5; O2SAT 94
--- NOTE | 2023-09-28 16:37 | P.PNNP_ITS ---
Subjective Subjective Date of Service: 09/28/23 Interval history: E coli M.I.C. RX --------- --- Ampicillin >=32 R Extended Spectrum Beta Lactam NEG - Ceftriaxone <=1 S Gentamicin <=1 S Levofloxacin <=0.12 S Nitrofurantoin <=16 S Trimethoprim/Sulfamethoxazole <=20 S Physical Exam 2 Vital Signs: Vital Signs: Last Vital Signs Temp 97.7 F 09/28/23 15:42 Pulse 86 09/28/23 15:42 Resp 16 09/28/23 15:42 BP 106/57 L 09/28/23 15:42 Pulse Ox 94 09/28/23 15:42 O2 Del Method Room Air 09/28/23 15:42 BMI result Body Mass Index 17.7 Const: Other: Awake alert appropriate no acute distress General: alert and awake Nutritional Appearance: thin Chest: Other: port right chest wall clean with no surrounding erythema Resp: Other: Clear to auscultation bilaterally no rales rhonchi or wheezes Effort & Inspection: normal respiratory effort, able to speak in complete sentences, no respiratory distress and no use of accessory muscles Cardio: Other: No S4; positive S1-S2; no S3 murmurs rubs or gallops Rate: regular rate GI: Other: Soft nontender nondistended normoactive bowel sounds Inspection: No distended Palpation (GI): Soft to palpation Extrem: Other: No edema bilaterally General: Yes no pedal edema Objective Data Labs 09/27/23 05:20 09/27/23 05:20 Microbiology Microbiology Results: Microbiology 09/25/23 Unknown Urine clean catch - Urine chapa top Urine Culture - Final Procedures Date of Service Date of Service: 09/28/23 Assessment & Plan Assessment and plan (1) ESRD (end stage renal disease): Status: Inactive (2) Hypertension: Status: Inactive Plan 82-year-old female with a PMH significant for?ESRD on HD Fri/Fri/Fri, COPD, GERD, chronic back pain on chronic opioids, and mood disorder who presents to the ED via ambulance for AMS. 1.ESRD on HD //Fri - HD today - Consider Cipro for UTI - EPO 20,000u dosed 09/26 - Renal diet. - f/u Psych recs for Dementia Time Spent With Patient Time: Total time managing care of this patient today ____ minutes. Progress Note: Quality Stroke Does the patient have a stroke diagnosis?: No
[2023-09-28 20:00] VITALS: BP 118/63; PULSE 73; RESP 16; TEMP 36.5; O2SAT 94
[2023-09-28] MEDS: Montelukast Sodium 10 MG TABLET PO (20:28)
[2023-09-28] MEDS: lisinopriL 10 MG TABLET PO (20:28)
[2023-09-29] MEDS: oxyCODONE HCl Immed Release 5 MG TABLET PO ×3 (03:21→14:29)
[2023-09-29] MEDS: Acetaminophen 325 MG TABLET 650 MG PO (03:22)
[2023-09-29 03:54] VITALS: BP 148/73; PULSE 80; RESP 16; TEMP 36.1; O2SAT 98
[2023-09-29] MEDS: Morphine Sulfate 2 MG/ML CARTRIDGE IVPUSH ×4 (03:56→17:45)
[2023-09-29 07:34] VITALS: BP 150/72; PULSE 86; RESP 18; TEMP 36.2; O2SAT 96
[2023-09-29] MEDS: Sevelamer Carbonate Tablet 800 MG TABLET PO ×3 (07:43→17:45)
[2023-09-29] MEDS: 0.9 % Sodium Chloride Flush 3 ML SYRINGE IVFLUSH ×3 (07:52→22:00)
[2023-09-29] MEDS: FLUoxetine HCl 20 MG CAPSULE 40 MG PO (08:33)
[2023-09-29] MEDS: Ferrous Sulfate 324 MG TABLET.DR PO (08:33)
[2023-09-29] MEDS: Heparin Sodium,Porcine 5,000 UNIT/ML VIAL 5000 UNIT SUBCUT ×2 (08:34→21:59)
[2023-09-29] MEDS: Multivitamin TABLET 1 TAB PO (08:34)
[2023-09-29] MEDS: Atorvastatin Calcium 40 MG TABLET PO (08:34)
[2023-09-29] MEDS: Loratadine 10 MG TABLET PO (08:34)
[2023-09-29] MEDS: cefuroxime axetiL 500 MG TABLET PO ×2 (08:34→21:59)
[2023-09-29] MEDS: Omeprazole 20 MG CAPSULE.DR PO (08:34)
--- NOTE | 2023-09-29 09:15 | MHC.CLN ---
F/U DIET=REGULAR, CHOPPED. GELATEIN BID TO PROMOTE NUTRITIONAL INTAKE. PROVIDES 320 KCALS, 40 G PROTEIN. ESRD AND RECEIVES HEMODIALYSIS. INTAKE APPEARS USUALLY GOOD. FOLLOW FOR INTAKE OF MEALS AND SUPPLEMENT.
[2023-09-29 13:56] VITALS: BP 150/72; PULSE 86; O2SAT 96
--- NOTE | 2023-09-29 14:15 | PM.DS ---
DS: Providers Provider Date of Service: 09/29/23 Date of admission: 09/25/23 09:27 Date of discharge: 09/29/23 Primary care physician: Fran Alegria MD Consults: 09/25/23 01:31 Consult to Psychiatry Routine Consulting Provider: Psych Covering Reason for consultation: capacity 09/25/23 09:13 Consult to Nephrology Routine Consulting Provider: [facility] Reason for consultation: ESRD DS: Diagnosis Discharge Diagnosis (1) ESRD (end stage renal disease): Status: Inactive (2) Hypertension: Status: Inactive DS: Summary Hospital Course Hospital Course: 82-year-old female with past medical history significant for end-stage renal disease on hemodialysis Friday, COPD, GERD, chronic back pain secondary to old lumbar compression fracture presents after a fall at home. Patient's urine demonstrated some active sediment for which she was started on Ceftin b.i.d.. She received hemodialysis in the hospital ultimately her urine culture came back with mixed derek. She continued to improve and was seen by Physical therapy who deemed her appropriate for home with home PT and VNA. She will be discharged home with Zofran and oxycodone and follow-up with PCP as scheduled Time Attestation Discharge coordination time: Greater than 30 minutes Quality: Safe Use of Opioids Does Pt have an Active Cancer Diagnosis on the Problem List?: No Quality: Stroke Does the patient have a stroke diagnosis?: No Physical Exam Vital Signs: Vital Signs: Last Vital Signs Temp 97.2 F 09/29/23 07:34 Pulse 86 09/29/23 07:34 Resp 18 09/29/23 07:34 BP 150/72 H 09/29/23 07:34 Pulse Ox 96 09/29/23 07:34 O2 Del Method Room Air 09/29/23 07:34 BMI result Body Mass Index 17.7 Const: Other: Awake alert appropriate no acute distress Resp: Other: Clear to auscultation bilaterally no rales rhonchi or wheezes Cardio: Other: No S4; positive S1-S2; no S3 murmurs rubs or gallops GI: Other: Soft nontender nondistended normoactive bowel sounds Neuro: Other: Cranial nerves 2-12 grossly intact as tested. Motor is 5/5 all extremities. Sensation is intact. Awake alert oriented x3 spheres Extrem: Other: No edema bilaterally DS: Data Data Completed and Pending Completed studies during hospitalization [Text1]: Procedures Performance of Urinary Filtration, Intermittent, Less than 6 Hours Per Day (08/25/23) Reposition Right Tibia with Internal Fixation Device, Open Approach (07/31/20) Transfusion of Nonautologous Red Blood Cells into Peripheral Vein, Percutaneous Approach (12/09/22) Discharge Plan Discharge Anticipated Discharge Date/Time: 09/29/23 14:08 Patient Disposition: Home Health Service Discharge Diagnosis: Lumbar compression fracture Referrals: Fran Alegria MD [Primary Care Provider] - 1 Week Discharge Medications: New oxycodone 5 mg Tablet 5 mg PO Q4H PRN (Reason: Pain, Moderate(Pain Scale 4-6)) Qty: 20 0RF Rx Instructions: Partial Fill upon patient request. ondansetron HCl 4 mg tablet 4 mg PO Q6H PRN (Reason: nausea and vomiting) Qty: 20 0RF Continued montelukast 10 mg tablet 10 mg PO BEDTIME albuterol sulfate [ProAir HFA] 90 mcg/actuation Hfa Aerosol Inhaler 2 puff INHALATION Q6H PRN (Reason: Shortness Of Breath) lorazepam 0.5 mg Tablet 0.5 mg PO BID PRN (Reason: Anxiety) pantoprazole 40 mg Tablet,Delayed Release (Dr/Ec) 40 mg PO DAILY fluoxetine 40 mg Capsule 40 mg PO QAM atorvastatin 40 mg tablet 40 mg PO DAILY cetirizine 10 mg Tablet 10 mg PO DAILY pgyowssvxh-sdxbgtyqvfqmj-erae 50-325-40 mg tablet 1 tab PO Q12H PRN (Reason: Headache) oxycodone-acetaminophen 5-325 mg tablet 1 tab PO Q8H PRN (Reason: Pain, Moderate) Qty: 10 0RF lisinopril 10 mg tablet 10 mg PO BEDTIME diclofenac sodium 1 % gel 4 g topical TID sevelamer carbonate 800 mg tablet 800 mg PO TIDWM cholecalciferol (vitamin D3) 1,250 mcg (50,000 unit) Tablet 1,250 mcg PO QMONTH ferrous gluconate 324 MG tablet 324 mg PO MOWEFR@0900 sennosides [senna] 8.6 mg Tablet 17.2 mg PO DAILY PRN (Reason: Constipation) calcium carbonate 500 mg calcium (1,250 mg) Tablet 500 mg PO TID PRN (Reason: Acid Reflux) B complex-vitamin C-folic acid 0.8 mg Tablet 1 tab PO DAILY Discharge Orders: Discharge Order (Routine); Ordered 09/29/23 Ordered By: Rehan Landrum Diet: Advance to usual diet Activity on Discharge: As tolerated Stand Alone Forms: Patient Portal Discharge page Care Plan Goals: Utilize Zofran 4 mg q.6 hours for nausea. You can utilize oxycodone 5 mg q.6 hours p.r.n. pain Health Concerns: Resume all other hospital medicines as taken previously Plan of Treatment: Physical therapy/VNA will visit 2 at home and work with you there Assessment: See discharge summary
--- NOTE | 2023-09-29 14:23 | MHC.CM.PN ---
pt to be dcd with resumption of [facility] and [facility] referral pt to resume dialysis at [place] /tom adan and tariq
--- NOTE | 2023-09-29 14:29 | P.F2F_ITS ---
Service Date Service Date: 09/29/23 Encounter Date of encounter: 09/29/23 Reasons for Services Signs and symptoms assessed: Volume status as well as respiratory status Reason for long term: medication management and teach disease management Reason for physical therapy: home safety and mobility and gait/transfer training Homebound: Leaving the home is medically contraindicated at this time without the asist of a device and/or another person due th the listed conditions above and below. Reason homebound: unsteady gait / fall risk and poor balance / fall risk Certification: Based on the above findings, I certify that this patient is confined to the home and needs intermittent long term care, physical therapy and/or speech therapy, or continues to need occupational therapy. The patient is under my care, and I have initiated the establishment of the plan of care. The patient will be followed by a physician who will periodically review the plan of care. Time Spent With Patient Time: Total time managing care of this patient today ____ minutes.
--- NOTE | 2023-09-29 14:52 | MHC.CM.PN ---
called and left a message for her dgter to imform her of dc and ask her to call floor to tell of her arrival also about a 2.50 co pay for meds
--- NOTE | 2023-09-29 15:31 | P.PNNP_ITS ---
Subjective Subjective Date of Service: 09/29/23 Interval history: Seen adn examined, event snoted Physical Exam 2 Vital Signs: Vital Signs: Last Vital Signs Temp 97.2 F 09/29/23 07:34 Pulse 86 09/29/23 13:56 Resp 18 09/29/23 07:34 BP 150/72 H 09/29/23 13:56 Pulse Ox 96 09/29/23 13:56 O2 Del Method Room Air 09/29/23 07:34 BMI result Body Mass Index 17.7 Const: Other: Awake alert appropriate no acute distress General: alert and awake Nutritional Appearance: thin O rientation/consciousness: patient oriented x3 HEENT: Other: poor dentition Chest: Other: port right chest wall clean with no surrounding erythema Resp: Other: Clear to auscultation bilaterally no rales rhonchi or wheezes Effort & Inspection: normal respiratory effort, able to speak in complete sentences, no respiratory distress and no use of accessory muscles Cardio: Other: No S4; positive S1-S2; no S3 murmurs rubs or gallops Rate: regular rate GI: Other: Soft nontender nondistended normoactive bowel sounds Inspection: No distended Palpation (GI): Soft to palpation Neuro: General: patient oriented x3 and moves all extremities Extrem: Other: No edema bilaterally General: Yes no pedal edema Objective Data Labs 09/27/23 05:20 09/27/23 05:20 Microbiology Microbiology Results: Microbiology 09/25/23 Unknown Urine clean catch - Urine chapa top Urine Culture - Final Procedures Date of Service Date of Service: 09/29/23 Assessment & Plan Assessment and plan (1) ESRD (end stage renal disease): Status: Inactive (2) Hypertension: Status: Inactive Plan 82-year-old female with a PMH significant for?ESRD on HD Tue/Elizabeth/Sat, COPD, GERD, chronic back pain on chronic opioids, and mood disorder who presents to the ED via ambulance for AMS. RECL: cont HD TTS, encourage incr protein intake; psyc eval ?; epo as ordered Time Spent With Patient Time: Total time managing care of this patient today ____ minutes. Progress Note: Quality Stroke Does the patient have a stroke diagnosis?: No
[2023-09-29 16:00] VITALS: BP 129/77; PULSE 87; RESP 18; TEMP 36.3; O2SAT 96
[2023-09-29] MEDS: Butalb/Acetamin/Caff 50/325/40 TABLET 1 TAB PO (18:11)
[2023-09-29] MEDS: LORazepam 0.5 MG TABLET PO (18:11)
[2023-09-29 19:47] VITALS: BP 105/66; PULSE 76; RESP 17; TEMP 36.8; O2SAT 95
[2023-09-29] MEDS: Montelukast Sodium 10 MG TABLET PO (21:59)
[2023-09-30 03:09] VITALS: BP 100/62; PULSE 70; RESP 17; TEMP 36.6; O2SAT 95
--- NOTE | 2023-10-15 14:30 | P.CDIM_ITS ---
PROVIDER RESPONSE TEXT: To clarify, the appropriate diagnosis supported by the clinical indicators: Underweight QUERY TEXT: PHYSICIAN'S DOCUMENTATION REQUEST Date of Query: 09/26/2023 12:50 PM EST Patient Name: Cristina Figueroa Admit Date: 09/25/2023 Dear Rehan Landrum, A review of the medical record indicates additional documentation may be needed. Please review below and update the documentation accordingly. Clinical Indicators: BMI 15.7 45.359kg 5ft 7in If possible, please provide an associated diagnosis related to the abnormal BMI, such as: Underweight Cachexia Anorexia Malnutrition mild, moderate or severe Other (explain) Clinically unable to determine (explain) Thank you, Joan Cisneros, CCS, CDIS Use of terms such as suspected, likely, concern for, or probable (associated with a specific diagnosi s that is being evaluated, monitored, or treated as if it exists) are acceptable and can be coded in the inpatient se tting, when documented at the time of discharge. Please use your independent medical judgment in providing your response. THIS QUERY IS PART OF THE PERMANENT MEDICAL RECORD
--- NOTE | 2023-10-15 14:30 | P.CDIM_ITS ---
PROVIDER RESPONSE TEXT: To clarify, the appropriate diagnosis supported by the clinical indicators: Malnutrition: mild QUERY TEXT: PHYSICIAN'S DOCUMENTATION REQUEST Date of Query: 10/01/2023 09:28 AM EST Patient Name: Cristina Figueroa Admit Date: 09/25/2023 RETROSPECTIVE QUERY Dear Rehan Landrum, A review of the medical record indicates additional documentation may be needed. Please review below and update the documentation accordingly. Clinical Indicators: Clinical nutrition notes - Non-severe malnutrition in the context of chronic illness BMI 17.7 Moderate depletion of body fat and muscle mass. Qualifies for moderately malnourished. Regular chopped diet, adding Gelatein BID to promote nutritional intake. If possible, please provide an associated diagnosis related to the abnormal BMI, such as: Malnutrition mild, moderate or severe Underweight Cachexia Anorexia Other (explain) Clinically unable to determine (explain) Thank you, Joan Cisneros, CCS, CDIS Use of terms such as suspected, likely, concern for, or probable (associated with a specific diagnosi s that is being evaluated, monitored, or treated as if it exists) are acceptable and can be coded in the inpatient se tting, when documented at the time of discharge. Please use your independent medical judgment in providing your response. THIS QUERY IS PART OF THE PERMANENT MEDICAL RECORD
== END 2023-09-30 07:31 | disposition home health service (06) | DRG 682 ==
LOC: HO.ED 09-25 08:12 → HO.EDOVER 09-25 09:27 → HO.S3 09-25 15:03
PROVIDERS: Admitting Provider Family Medicine; Emergency Provider Emergency Medicine; PCP Internal Medicine; Visit Provider Hospitalist
DX: I12.0 Hypertensive chronic kidney disease with stage 5 chronic kidney disease or end stage renal disease (principal); N18.6 End stage renal disease; Z16.11 Resistance to penicillins; Z68.1 Body mass index [BMI] 19.9 or less, adult; E44.1 Mild protein-calorie malnutrition; D63.1 Anemia in chronic kidney disease; G89.29 Other chronic pain; B96.20 Unspecified Escherichia coli [E. coli] as the cause of diseases classified elsewhere; M54.9 Dorsalgia, unspecified; J44.9 Chronic obstructive pulmonary disease, unspecified; Z99.2 Dependence on renal dialysis; G30.9 Alzheimer's disease, unspecified; F02.80 Dementia in other diseases classified elsewhere, unspecified severity, without behavioral disturbance, psychotic disturbance, mood disturbance, and anxiety; Z87.891 Personal history of nicotine dependence; Z79.899 Other long term (current) drug therapy
CPT/HCPCS: 36415; 70450; 72125; 72131; 80048; 80053; 80076; 80307; 81001; 83690; 83735; 85025; 85027; 87086; 90999; 97162; 99285; J0885; J1644; J2270; J2405

== ENCOUNTER → 2023-09-25 09:27 | Outpatient (BNV) | payer MEDICARE, SELFPAY | PROVIDERS: Admitting Provider Family Medicine; Emergency Provider Emergency Medicine; PCP Internal Medicine; Visit Provider Student in an Organized Health Care Education/Training Program | DX: I12.0 Hypertensive chronic kidney disease with stage 5 chronic kidney disease or end stage renal disease (principal); N18.6 End stage renal disease; Z99.2 Dependence on renal dialysis | CPT/HCPCS: 99222; 99233; 99239; G0180 ==

== ENCOUNTER 2023-10-13 11:16 | Outpatient (REF) | payer MEDICARE, SELFPAY ==
[2023-10-13 11:23] LABS: MANUAL DIFF FLAG NO
[2023-10-13 11:40] LABS: Basophils Absolute Auto 0.1 X10*3/uL (0.0-0.2); Basophils Percent Auto 1.5 % (0-2); Eosinophils Absolute Auto 0.2 X10*3/uL (0.0-0.4); Eosinophils Percent Auto 4.2 % (0-4); Hematocrit 32.4 % (37.0-47.0); Hemoglobin 10.3 g/dl (12.0-16.0); Imm Gran Abs Auto 0.01 X10*3/uL (0.00-0.03); Imm Gran Pct Auto 0.2 % (0.0-0.4); Lymphocytes Absolute Auto 1.4 X10*3/uL (1.2-4.9); Lymphocytes Percent Auto 29.3 % (20-40); Mean Corpuscular HGB Conc 31.8 g/dl (31.0-35.0); Mean Corpuscular Hemoglobin 33.4 pg (27.0-33.0); Mean Corpuscular Volume 105.2 fL (80.0-98.0); Mean Platelet Volume 10.1 fL (9.4-12.3); Monocytes Absolute Auto 0.3 X10*3/uL (0.1-1.2); Monocytes Percent Auto 6.1 % (2-11); Neutrophils Absolute Auto 2.8 x10*3/uL (2.0-8.3); Neutrophils Percent Auto 58.7 % (45-73); Platelet Count 264 X10*3/uL (160-400); Red Blood Count 3.08 X10*6/uL (4.20-5.50); Red Cell Distribution Width 15.5 % (11.0-16.0); White Blood Count 4.8 X10*3/uL (4.8-10.8)
[2023-10-13 11:45] LABS: Appearance Urine Clear; Color Urine Yellow; Glucose Urine UA Negative (Negative); Leukocyte Esterase Urine Small (1+) (Negative); Nitrite Urine Negative (Negative); UMIC TRIGGER UACC YES; Urine Blood Negative (Negative); Urine Ketones Negative (Negative); Urine Protein 100 (2+) mg/dL (Neg-Trace)
[2023-10-13 12:08] LABS: Bacteria Urine 1+ (None Seen); Hyaline Casts Urine 0-2 /LPF (0-2); RBC Urine >20 /HPF (0-2); UACC Culture Trigger YES; WBC Urine 21-50 /HPF (0-5)
[2023-10-13 12:55] LABS: Alanine Aminotransferase 27 U/L (0-31); Albumin Level 3.2 g/dL (3.5-5.0); Alkaline Phosphatase 102 U/L (39-117); Anion Gap 21 (12-20); Aspartate Amino Transferase 39 U/L (5-31); Bilirubin Total 0.3 mg/dL (0.0-1.0); Blood Urea Nitrogen 50 mg/dL (9-16); Calcium 8.9 mg/dL (8.4-10.2); Carbon Dioxide 23 mmol/L (22-29); Chloride 101 mmol/L (96-108); Cholesterol 170 mg/dL (<200); Estimated Glomerular Filt Rate 6; Glucose Random 68 mg/dL (60-115); HDL Cholesterol 49 mg/dL (>40); LDL Cholesterol Calculated 91 mg/dL (<100); Sodium 141 mmol/L (135-145); Thyroid Stimulating Hormone 1.23 uIU/mL (0.32-4.0); Total Protein 6.8 g/dL (6.5-8.0); Triglycerides 150 mg/dL (<150)
== END 2023-10-13 11:17 | disposition home or self-care (01) ==
LOC: HO.HVNA 11:16
PROVIDERS: Visit Provider Internal Medicine
DX: N18.6 End stage renal disease (principal); R30.0 Dysuria; Z99.2 Dependence on renal dialysis
CPT/HCPCS: 36415; 80053; 80061; 81001; 84443; 85025; 87086

== ENCOUNTER 2023-11-26 17:06 | Inpatient (IN) | payer MEDICARE, SELFPAY ==
--- NOTE | ~2023-11-26 | CT_ITS ---
EXAMINATION: CT HEAD WITHOUT CONTRAST CLINICAL INFORMATION: Headache COMPARISON: Previous head CT August 2023 TECHNIQUE: Contiguous axial imaging was performed from the skull base to vertex without intravenous administration of contrast. This CT examination was performed using dose optimization techniques as appropriate, variously including the following: *Automated exposure control *Adjustment of mA and/or kV according to patient size (this includes techniques or standardized protocols for targeted exams where dose is matched to indication/reason for exam; i.e. extremities or head) *Use of iterative reconstruction technique DLP: 610 mGy-cm FINDINGS: There is no evidence of an extra-axial collection. There is no evidence of intra or extra-axial hemorrhage. The ventricles and extra-axial CSF spaces are prominent suggestive of generalized atrophy. There is nonspecific periventricular white matter disease. No mass, mass effect or infarct is seen. No skull fracture. Visualized paranasal sinuses, mastoid air cells and middle ears are clear. CT/CT head/brain wo IV con IMPRESSION: No acute findings. Generalized atrophy and nonspecific periventricular white matter disease.
--- NOTE | ~2023-11-26 | CT_ITS ---
EXAMINATION: CT HEAD WITHOUT CONTRAST CLINICAL INFORMATION: Headache COMPARISON: Previous head CT most recent October 2023 TECHNIQUE: Contiguous axial imaging was performed from the skull base to vertex without intravenous administration of contrast. This CT examination was performed using dose optimization techniques as appropriate, variously including the following: *Automated exposure control *Adjustment of mA and/or kV according to patient size (this includes techniques or standardized protocols for targeted exams where dose is matched to indication/reason for exam; i.e. extremities or head) *Use of iterative reconstruction technique DLP: 537 mGy-cm FINDINGS: There is no evidence of an extra-axial collection. There is no evidence of intra or extra-axial hemorrhage. The ventricles and extra-axial CSF spaces are prominent suggestive of generalized atrophy. There is nonspecific periventricular white matter disease. No mass, mass effect or infarct is seen. No skull fracture. Visualized paranasal sinuses, mastoid air cells and middle ears are clear. CT/CT head/brain wo IV con IMPRESSION: No acute findings.
--- NOTE | ~2023-11-26 | XR_ITS ---
EXAMINATION: XR CHEST CLINICAL INFORMATION: Hypoxia. Cough. COMPARISON: Chest x-ray May 19, 2023 TECHNIQUE: Frontal portable view of the chest was obtained. 1725 hours FINDINGS: Central port catheter tip in right atrium. No change position since prior study. Heart size normal. Calcifications of thoracic aorta. Lung volume low causing prominence the bronchovascular markings. Hazy bibasilar bronchovascular markings at the bases is likely due to the low inspiratory effort but underlying airspace disease not entirely excluded. No focal dense consolidation. No pleural effusion. XR/XR chest 1V IMPRESSION: 1. Central port catheter tip in right atrium. 2. Hazy bibasilar bronchovascular markings likely due to low inspiratory effort but underlying airspace disease not entirely excluded.
--- NOTE | ~2023-11-26 | CT_ITS ---
EXAMINATION: CT ABDOMEN AND PELVIS WITHOUT CONTRAST CLINICAL INFORMATION: Sepsis, vomiting and diarrhea COMPARISON: Previous CT of the abdomen and pelvis July 2023 and renal ultrasound November 2019 TECHNIQUE: Multidetector volumetric imaging was performed from the superior aspect of the liver through the pubic symphysis. Sagittal and coronal reformatted images were obtained on the technologist's workstation. This CT examination was performed using dose optimization techniques as appropriate, variously including the following: *Automated exposure control *Adjustment of mA and/or kV according to patient size (this includes techniques or standardized protocols for targeted exams where dose is matched to indication/reason for exam; i.e. extremities or head) *Use of iterative reconstruction technique DLP: 222 mGy-cm FINDINGS: LUNG BASES: Bilateral lower lobe atelectasis/small and, left greater than right. LIVER, GALLBLADDER, AND BILIARY TREE: The liver is normal in size, shape, and attenuation. The gallbladder is been removed. There is mild intra and extrahepatic biliary duct dilatation. Stable. PANCREAS: There is dilatation of the main pancreatic duct measuring up to 5 mm in the head of the pancreas. This is similar to previous exam.. SPLEEN: Unremarkable. ADRENAL GLANDS: Unremarkable. KIDNEYS AND URETERS: Small kidneys. Bilateral renal simple and hyperdense cysts similar to previous exam. BLADDER: Unremarkable. GASTROINTESTINAL TRACT: Diverticulosis of the colon. The small and large bowel are otherwise unremarkable. The appendix is unremarkable. Well evaluated ABDOMINAL WALL: No significant hernia is appreciated. LYMPH NODES: Normal. VASCULAR: Unremarkable. PELVIC VISCERA: Not well visualized due to artifact from right hip hardware. OSSEOUS STRUCTURES: Scoliosis and degenerative changes of the spine. Mild compression fracture of the superior plate of the L2 body right hip replacement and wires proximal right femur CT/CT abdomen pelvis wo IV con IMPRESSION: No acute findings. Mild biliary and pancreatic duct dilatation similar to previous exam. Post cholecystectomy. Small kidneys. Diverticulosis. Severe atherosclerotic disease Fleischner guidelines were followed.
--- NOTE | ~2023-11-26 | CT_ITS ---
EXAMINATION: CT CHEST WITHOUT CONTRAST CLINICAL INFORMATION: Chest pain. Rule out pneumonia. COMPARISON: Previous chest x-ray from earlier the same day and chest CT February 2020 TECHNIQUE: Multidetector volumetric CT imaging of the chest was done. Axial MIP volume rendering provided. Sagittal and coronal reformatted images were obtained. This CT examination was performed using dose optimization techniques as appropriate, variously including the following: *Automated exposure control *Adjustment of mA and/or kV according to patient size (this includes techniques or standardized protocols for targeted exams where dose is matched to indication/reason for exam; i.e. extremities or head) *Use of iterative reconstruction technique DLP: 123 mGy-cm FINDINGS: LUNGS: Atelectasis or small infiltrates in both lower lobes, greater than right. MEDIASTINUM: Right jugular dialysis catheter with tip projecting over the SVC/right atrium. Normal heart size. No pericardial effusion. Calcified but normal caliber thoracic aorta. No enlarged hilar or mediastinal nodes. CORONARY ARTERY CALCIFICATION: Severe PLEURA: There is no pleural effusion. No pleural mass or thickening. AXILLA: No lymphadenopathy. UPPER ABDOMEN: Unremarkable. OSSEOUS STRUCTURES: Degenerative changes of the spine and shoulders. CT/CT chest wo IV con IMPRESSION: Bilateral lower lobe atelectasis or small infiltrates, left greater than right. Fleischner guidelines were followed.
--- NOTE | 2023-11-26 08:44 | ECG_ITS ---
Test Reason : REPEAT Blood Pressure : / mmHG Vent. Rate : 087 BPM Atrial Rate : 087 BPM P-R Int : 158 ms QRS Dur : 078 ms QT Int : 336 ms P-R-T Axes : 067 017 059 degrees QTc Int : 404 ms Normal sinus rhythm Normal ECG When compared with ECG of 26-NOV-2023 19:11, QT has shortened Referred By: Stephenie Perry Electronically Signed By:YONI GUAMAN MD
--- NOTE | 2023-11-26 17:18 | ECG_ITS ---
Test Reason : ?AMS Blood Pressure : / mmHG Vent. Rate : 087 BPM Atrial Rate : 087 BPM P-R Int : 158 ms QRS Dur : 078 ms QT Int : 392 ms P-R-T Axes : 091 004 051 degrees QTc Int : 471 ms Normal sinus rhythm Possible Septal infarct (cited on or before 26-NOV-2023) Abnormal ECG When compared with ECG of 22-AUG-2023 12:04, Questionable change in initial forces of Septal leads Referred By: Toshia Kay Electronically Signed By:YONI GUAMAN MD
--- NOTE | 2023-11-26 17:20 | ED_ITS ---
HPI - Weakness General Chief complaint: Nausea/Vomiting/Diarrhea Stated complaint: AMS VOMITING HEADACHE Time Seen by Provider: 11/26/23 17:16 Source: patient and EMS Mode of arrival: EMS History of Present Illness HPI Narrative: 83-year-old female with past medical history CKD on dialysis and anemia presents to the emergency department, via EMS, for concerns of nausea, vomiting, diarrhea, headache, weakness, and concern for altered mental status. Per EMS patient has been vomiting throughout the day and the family is concerned that the patient appeared confused. EMS reports that the patient was noted to be hypoxic, with an SpO2 of 86%, and was placed on nasal cannula with an increase in SpO2 to 97%. EMS reports that patient has been answering questions appropriately and does not seem to have any altered mental status at this time. Patient reports she has a Friday, , Friday dialysis schedule but that she missed dialysis yesterday because she was not feeling well. She has a dialysis port on the right chest and a maturing fistula on the right arm. She states she still does make urine ?quite frequently?. She denies noting any shortness of breath but reports that she has had a cough. She also denies any chest pain, abdominal pain, constipation, melena, hematochezia, dizziness, lightheadedness Pertinent positives and negatives discussed in HPI Related Data Home Medications Medication Instructions Recorded Confirmed montelukast 10 mg tablet 10 mg PO BEDTIME 07/28/20 09/25/23 albuterol sulfate 90 mcg/actuation 2 puff inhalation Q6H PRN 08/01/20 09/25/23 aerosol inhaler (ProAir HFA) Shortness Of Breath fluoxetine 40 mg capsule 40 mg PO QAM 08/01/20 09/25/23 lorazepam 0.5 mg tablet 0.5 mg PO BID PRN Anxiety 08/01/20 09/25/23 pantoprazole 40 mg tablet,delayed 40 mg PO DAILY 08/01/20 09/25/23 release atorvastatin 40 mg tablet 40 mg PO DAILY 06/19/22 09/25/23 cetirizine 10 mg tablet 10 mg PO DAILY 06/19/22 09/25/23 pxidgyntpq-lxqoihnzouiud-yfbaobio 1 tab PO Q12H PRN Headache 12/09/22 09/25/23 50 mg-325 mg-40 mg tablet diclofenac sodium 1 % topical gel 4 g topical TID 08/22/23 09/25/23 lisinopril 10 mg tablet 10 mg PO BEDTIME 08/22/23 09/25/23 calcium carbonate 500 mg calcium 500 mg PO TID PRN Acid Reflux 09/25/23 09/25/23 (1,250 mg) tablet cholecalciferol (vitamin D3) 1,250 1,250 mcg PO QMONTH 09/25/23 09/25/23 mcg (50,000 unit) tablet ferrous gluconate 324 mg PO MOWEFR@0900 09/25/23 09/25/23 sennosides 8.6 mg tablet (senna) 17.2 mg PO DAILY PRN Constipation 09/25/23 09/25/23 sevelamer carbonate 800 mg tablet 800 mg PO TIDWM 09/25/23 09/25/23 vitamin B complex-vitamin C-folic 1 tab PO DAILY 09/25/23 09/25/23 acid 0.8 mg tablet Previous Rx's Medication Instructions Recorded oxycodone-acetaminophen 5 mg-325 1 tab PO Q8H PRN Pain, Moderate 12/13/22 mg tablet #10 tabs ondansetron HCl 4 mg tablet 4 mg PO Q6H PRN nausea and 09/29/23 vomiting #20 tabs oxycodone 5 mg tablet 5 mg PO Q4H PRN Pain, 09/29/23 Moderate(Pain Scale 4-6) #20 tabs Allergies Allergy/AdvReac Type Severity Reaction Status Date / Time codeine [Codeine] Allergy Mild RASH Verified 11/26/23 17:26 Sulfa (Sulfonamide Allergy Mild HIVES Verified 11/26/23 17:26 Antibiotics) [Sulfa (Sulfonamides)] ibuprofen [From Motrin] AdvReac Mild STOMACH Verified 11/26/23 17:26 UPSET, Rectal bleeding Review of Systems 2 Review of Systems: Yes all other systems are reviewed and are negative COUNT INCLUDES [facility] Past Medical History Medical History (Updated 11/26/23 @ 22:49 by Maria Antonia Joy MD) Chronic kidney disease requiring chronic dialysis Compression fx, lumbar spine ESRD needing dialysis ESRD (end stage renal disease) CKD (chronic kidney disease) stage 4, GFR 15-29 ml/min Metabolic acidosis Hyperkalemia FLORECITA (acute kidney injury) Anemia CHF (congestive heart failure) Headache Hypertensive urgency CKD (chronic kidney disease) Anxiety and depression Hiatal hernia Chronic anemia Hyperlipidemia Back pain Osteoarthritis Anemia COPD (chronic obstructive pulmonary disease) GERD (gastroesophageal reflux disease) Asthma Hypertension Surgical History Hx of breast biopsy History of esophagogastroduodenoscopy (EGD) Hx of colonoscopy History of left-sided carotid endarterectomy History of total right hip arthroplasty History of open reduction and internal fixation (ORIF) procedure History of cholecystectomy H/O of rectopexy History of bowel resection H/O: hysterectomy Social History Social History Household Members: Family Household Members Other:: DAUGHTER LAURECE [facility] Do you presently have visiting nurse or other home services: Yes Unable to assess alcohol history related to: Unknown Alcohol intake: current Alcohol intake frequency: does not drink Comment: tylenol 325mg po given & warm blanket, layed on left side Patient Tobacco Use Status: Former Tobacco user Quit Date: 12 YEARS AGO Tobacco use type: Cigarette Years Smoked: 20 e-Cigarette/Vaping Use: Never Used Second Hand Smoke Exposure: No Use of substances other than those prescribed or required for medical reasons: No Substance Use Type: Marijuana Advance Directives: Yes Advance Directives on File: Yes Advance Directives Date on File: 09/04/20 service: No Current occupational status: retired Physical Exam 2 Vital Signs: Vital Signs: Last Vital Signs Temp 97.9 F 11/26/23 20:00 Pulse 81 11/26/23 20:00 Resp 14 11/26/23 20:00 BP 106/64 11/26/23 20:00 Pulse Ox 99 11/26/23 20:00 O2 Del Method Nasal Cannula 11/26/23 20:00 O2 Flow Rate 3 11/26/23 20:00 BMI result Body Mass Index 20.4 Nursing notes and vital signs reviewed. GENERAL APPEARANCE: A&0 x 4, generally well appearing, no acute distress HENMT: Normal to inspection, atraumatic, face symmetrical. Normal external ears, nose, and oropharynx clear. EYE: PERRLA, EOM intact, structures appear normal NECK: Supple without lymphadenopathy. No stiffness or restricted ROM. CHEST: Normal to inspection, dialysis catheter right chest HEART: Normal rate and regular rhythm, normal S1/S2, no M/R/G LUNGS: LS CTA, moving air well. Able to speak in complete sentences. No crackles, wheezes, or rhonchi auscultated ABDOMEN: Soft, nontender, nondistended. Normal bowel sounds noted BACK: No CVAT, no obvious deformity EXTREMITIES: Moving all extremities without difficulty. No cyanosis, clubbing, or edema. Normal capillary refill. Fistula noted on right upper arm NEUROLOGICAL: Alert and oriented, moving all 4 extremities with equal strength. CN not formally tested but appearing grossly intact. Observed to ambulate with normal gait. Cognition normal SKIN: Warm and dry without any lesions, rash, or visible sores PSYCH: Cooperative, normal affect, normal thought process Course Reevaluation(s) Reevaluation #1: EKG completed showing t-wave inversions in V2 and changes in V1. Troponin 216, repeat ordered. Case discussed with ED attending, Dr Perry as well as transformer repairer, Dr Alarcon, regarding EKG changes and elevated troponin. Computed Tomography Technician recommends repeat EKG and troponin Time: 18:56 Time: 21:10 Medications Administered Discontinued Medications Generic Name Dose Route Start Last Admin Trade Name Geovanniq PRN Reason Stop Dose Admin Acetaminophen 650 mg 11/26/23 17:40 11/26/23 17:56 Acetaminophen 325 Mg Tablet PO 11/26/23 17:41 650 mg ONCE ONE Administration Morphine Sulfate 2 mg 11/26/23 19:31 11/26/23 19:50 Morphine Sulfate 2 Mg/Ml Cartridge IVPUSH 11/26/23 19:32 2 mg ONCE ONE Administration Protocol Ondansetron HCl 4 mg 11/26/23 17:18 11/26/23 17:57 Ondansetron Hcl 4 Mg/2 Ml Vial IVPUSH 11/26/23 17:19 4 mg ONCE ONE Administration Medical Decision Making Medical Decision Making MDM Narrative: Old records reviewed for previous imaging, lab studies, ECGs, and notes with additional HPI obtained from EMS. Patient was assessed the emergency department with nasal cannula in place with SpO2 greater than 95%. Tylenol was ordered for headache with little relief in symptoms and morphine was given. A chest x-ray was completed which showed evidence of a significant pneumonia was and the CT head showed no evidence of acute findings consistent with altered mental status per my interpretation. EKG was completed which showed question of nonspecific T-wave inversion per my interpretation. A repeat EKG was done, which I have interpreted as normal sinus rhythm, at 86 beats per minute with no signs of acute ischemia or ectopy. Patient's initial troponin was 216 and repeat 242. Heart score 8 indicating patient is at high risk for major adverse cardiac event. Computed Tomography Technician, Dr. Alarcon, was consulted regarding EKG and troponins. does not recommend any anticoagulants at this time as patient has no ischemic symptoms, no EKG changes and flat troponins. Remaining blood work showed leukocytosis with WBCs 14.6 and stable anemia. There was no evidence of hyperkalemia even though patient missed her dialysis appointment yesterday. There was an increase in patient's creatinine from 6.75 one month ago to 6.87 today. Nasal serology was negative for COVID and flu and case was discussed with hospitalist, Dr. Joy, with plan for inpatient admission for further management of patient's symptoms. Differential Diagnosis Differential Diagnoses: The differential diagnosis associated with the presentation includes But not limited to ACS, PE, CVA, pneumonia, COVID, flu, RSV, CHF, COPD, sepsis, malignancy Admission/Observation Consideration of admission/observation: Escalation of care including admission/observation considered Consult Healthcare Provider Management of the patient was discussed with: Hospitalist Lab Data MDM Lab Attestation statement: I reviewed the patient's lab results. 11/26/23 17:37 11/26/23 17:37 Labs: Lab Results 11/26/23 11/26/23 Range/Units 17:37 19:47 WBC 14.6 H (4.8-10.8) X10*3/uL RBC 3.32 L (4.20-5.50) X10*6/uL Hgb 10.5 L (12.0-16.0) g/dl Hct 32.4 L (37.0-47.0) % MCV 97.6 (80.0-98.0) fL MCH 31.6 (27.0-33.0) pg MCHC 32.4 (31.0-35.0) g/dl RDW 14.6 (11.0-16.0) % Plt Count 370 D (160-400) X10*3/uL MPV 9.8 (9.4-12.3) fL Immature Gran % (Auto) 1.4 H (0.0-0.4) % Neut % (Auto) 82.5 H (45-73) % Lymph % (Auto) 11.3 L (20-40) % [place] % (Auto) 4.0 (2-11) % Eos % (Auto) 0.5 (0-4) % Baso % (Auto) 0.3 (0-2) % Lymph # (Auto) 1.7 (1.2-4.9) X10*3/uL [place] # (Auto) 0.6 (0.1-1.2) X10*3/uL Eos # (Auto) 0.1 (0.0-0.4) X10*3/uL Baso # (Auto) 0.0 (0.0-0.2) X10*3/uL Abs Immat Gran (auto) 0.20 H (0.00-0.03) X10*3/uL Absolute Neuts (auto) 12.1 H (2.0-8.3) x10*3/uL Absolute Nucleated RBC 0.020 H (0.0-0.012) X10*3/uL Nucleated RBC % (auto) 0.1 (0.0-0.2) /100WBC Sodium 138 (135-145) mmol/L Potassium 3.1 L (3.3-5.1) mmol/L Chloride 93 L (96-108) mmol/L Carbon Dioxide 26 (22-29) mmol/L Anion Gap 22 H (12-20) BUN 47 H (9-16) mg/dL Creatinine 6.87 H* (0.5-1.4) mg/dL Estim Creat Clear Calc 4.3 Estimated GFR 6 Random Glucose 93 (60-115) mg/dL Calcium 10.1 D (8.4-10.2) mg/dL Magnesium 2.2 (1.6-2.6) mg/dL Total Bilirubin 0.4 (0.0-1.0) mg/dL AST 24 (5-31) U/L ALT 17 (0-31) U/L Alkaline Phosphatase 112 (39-117) U/L Troponin I High Sens 216.6 H* D 242.4 H* (<3.5-17.0) ng/L Total Protein 8.1 H (6.5-8.0) g/dL Albumin 3.3 L (3.5-5.0) g/dL COVID-19 (MARIANA) Negative (Negative) COVID-19 Clin Com See Note Influenza Type A (STEPH) Negative (Negative) Influenza Type B (STEPH) Negative (Negative) Influenza A & B Note See Note Independent Interpretation I performed an independent interpretation of an: EKG, Plain X-Ray and CT Scan Independent Historian Clinical information obtained from an independent historian. History obtained from or confirmed by: EMS External Record Review External record reviewed: Inpatient record and Prior outpatient labs Prescription Management I considered prescription management with: Pain Medication Discharge Plan Discharge Clinical Impression: Hypoxia, Elevated troponin, Weakness, Nausea & vomiting, Diarrhea Patient Disposition: Admitted As Inpatient
[2023-11-26 17:21] VITALS: BP 90/60; BP 93/55; PULSE 107; PULSE 99; RESP 18; TEMP 37.1; O2SAT 96; O2SAT 98; BMI 20.4
[2023-11-26 17:46] LABS: MANUAL DIFF FLAG NO
[2023-11-26 17:48] LABS: Basophils Percent Auto 0.3 % (0-2); Eosinophils Absolute Auto 0.1 X10*3/uL (0.0-0.4); Eosinophils Percent Auto 0.5 % (0-4); Hematocrit 32.4 % (37.0-47.0); Hemoglobin 10.5 g/dl (12.0-16.0); Imm Gran Pct Auto 1.4 % (0.0-0.4); Lymphocytes Absolute Auto 1.7 X10*3/uL (1.2-4.9); Lymphocytes Percent Auto 11.3 % (20-40); Mean Corpuscular HGB Conc 32.4 g/dl (31.0-35.0); Mean Corpuscular Hemoglobin 31.6 pg (27.0-33.0); Mean Corpuscular Volume 97.6 fL (80.0-98.0); Mean Platelet Volume 9.8 fL (9.4-12.3); Monocytes Absolute Auto 0.6 X10*3/uL (0.1-1.2); NRBC Pct Auto 0.1 /100WBC (0.0-0.2); Neutrophils Absolute Auto 12.1 x10*3/uL (2.0-8.3); Neutrophils Percent Auto 82.5 % (45-73); Platelet Count 370 X10*3/uL (160-400); Red Blood Count 3.32 X10*6/uL (4.20-5.50); Red Cell Distribution Width 14.6 % (11.0-16.0); White Blood Count 14.6 X10*3/uL (4.8-10.8)
[2023-11-26] MEDS: Acetaminophen 325 MG TABLET 650 MG PO (17:56)
[2023-11-26] MEDS: ondansetron HCL 4 MG/2 ML VIAL IVPUSH (17:57)
[2023-11-26 18:01] LABS: IDNOW Serial# 152EDE1D
[2023-11-26 18:02] LABS: COVID-19 Test Negative (Negative); IDNOW Serial# 9DB6401D; Influenza A Negative (Negative); Influenza B2 Negative (Negative)
[2023-11-26 18:08] LABS: Alanine Aminotransferase 17 U/L (0-31); Albumin Level 3.3 g/dL (3.5-5.0); Alkaline Phosphatase 112 U/L (39-117); Anion Gap 22 (12-20); Aspartate Amino Transferase 24 U/L (5-31); Bilirubin Total 0.4 mg/dL (0.0-1.0); Blood Urea Nitrogen 47 mg/dL (9-16); Calcium 10.1 mg/dL (8.4-10.2); Carbon Dioxide 26 mmol/L (22-29); Chloride 93 mmol/L (96-108); Creatinine Clr Calc Pharmacy 4.3; Estimated Glomerular Filt Rate 6; Glucose Random 93 mg/dL (60-115); Magnesium 2.2 mg/dL (1.6-2.6); Potassium 3.1 mmol/L (3.3-5.1); Sodium 138 mmol/L (135-145); Total Protein 8.1 g/dL (6.5-8.0)
[2023-11-26 18:15] LABS: Troponin-I High Sensitivity 216.6 ng/L (<3.5-17.0)
--- NOTE | 2023-11-26 18:55 | ECG_ITS ---
Test Reason : 2ND EKG Blood Pressure : / mmHG Vent. Rate : 088 BPM Atrial Rate : 088 BPM P-R Int : 160 ms QRS Dur : 076 ms QT Int : 384 ms P-R-T Axes : 073 019 058 degrees QTc Int : 464 ms Normal sinus rhythm Normal ECG When compared with ECG of 26-NOV-2023 18:35, Criteria for Septal infarct are no longer Present Referred By: Toshia Kay Electronically Signed By:YONI GUAMAN MD
[2023-11-26] MEDS: Morphine Sulfate 2 MG/ML CARTRIDGE IVPUSH (19:50)
[2023-11-26 20:00] VITALS: BP 106/64; PULSE 81; RESP 14; TEMP 36.6; O2SAT 99
[2023-11-26 20:13] LABS: Troponin-I High Sensitivity 242.4 ng/L (<3.5-17.0)
--- NOTE | 2023-11-26 22:36 | PM.IMHP ---
History of Present Illness Date of Service: 11/26/23 Chief Complaint: Cough, dyspnea This is a 83-year-old female with pertinent history of ESRD on hemodialysis T/T/S, mood disorder, essential hypertension, mixed hyperlipidemia, COPD not on home oxygen, chronic back pain with chronic opioid use who presents to the emergency department for evaluation of cough and dyspnea. Patient states she started having intermittent productive cough that started 3 days prior to presentation. It has been progressive. No sick contacts. Patient also has been having dyspnea which is worse with exertion. States she feels sick and tired. She missed her dialysis session yesterday. Also complains of headache and nausea. No fever, chills, chest discomfort, palpitations, abdominal pain, changes in urinary or bowel habits. In the emergency department, patient was found to be septic and imaging concerning for pneumonia. Also requiring supplemental oxygen to maintain normal oxygen saturation Review of Systems Constitutional: Constitutional: Reports fatigue, Reports lethargy, Reports malaise, Reports poor appetite and Reports weakness Cardiovascular: Cardiovascular: Reports dyspnea on exertion Respiratory: Respiratory: Reports cough and Reports dyspnea on exertion Gastrointestinal: Gastrointestinal: Reports no additional gastrointestinal complaints Genitourinary: Genitourinary: Reports no additional female genitourinary complaints Neurologic: Reports weakness Endocrine: Endocrine: Reports fatigue [facility] Medical History Chronic kidney disease requiring chronic dialysis Compression fx, lumbar spine ESRD needing dialysis ESRD (end stage renal disease) CKD (chronic kidney disease) stage 4, GFR 15-29 ml/min Metabolic acidosis Hyperkalemia FLORECITA (acute kidney injury) Anemia CHF (congestive heart failure) Headache Hypertensive urgency CKD (chronic kidney disease) Anxiety and depression Hiatal hernia Chronic anemia Hyperlipidemia Back pain Osteoarthritis Anemia COPD (chronic obstructive pulmonary disease) GERD (gastroesophageal reflux disease) Asthma Hypertension Surgical History Hx of breast biopsy History of esophagogastroduodenoscopy (EGD) Hx of colonoscopy History of left-sided carotid endarterectomy History of total right hip arthroplasty History of open reduction and internal fixation (ORIF) procedure History of cholecystectomy H/O of rectopexy History of bowel resection H/O: hysterectomy Social History Household Members: Family Household Members Other:: DAUGHTER LAURECE [facility] Do you presently have visiting nurse or other home services: Yes Unable to assess alcohol history related to: Unknown Alcohol intake: current Alcohol intake frequency: does not drink Comment: tylenol 325mg po given & warm blanket, layed on left side Patient Tobacco Use Status: Former Tobacco user Quit Date: 12 YEARS AGO Tobacco use type: Cigarette Years Smoked: 20 e-Cigarette/Vaping Use: Never Used Second Hand Smoke Exposure: No Use of substances other than those prescribed or required for medical reasons: No Substance Use Type: Marijuana Advance Directives: Yes Advance Directives on File: Yes Advance Directives Date on File: 09/04/20 service: No Current occupational status: retired Meds Allergies Allergy/AdvReac Type Severity Reaction Status Date / Time codeine [Codeine] Allergy Mild RASH Verified 11/26/23 17:26 Sulfa (Sulfonamide Allergy Mild HIVES Verified 11/26/23 17:26 Antibiotics) [Sulfa (Sulfonamides)] ibuprofen [From Motrin] AdvReac Mild STOMACH Verified 11/26/23 17:26 UPSET, Rectal bleeding Active Medications: Current Medications Acetaminophen (Acetaminophen 325 Mg Tablet) 650 mg PO Q6H PRN PRN Reason: Pain, Mild (Pain Scale 1-3) Acetaminophen (Acetaminophen Supp 650 Mg Supp.Rect) 650 mg MS Q6H PRN PRN Reason: Pain, Mild (Pain Scale 1-3) Heparin Sodium (Porcine) (Heparin Sodium,Porcine 5,000 Unit/Ml Vial) 5,000 unit SUBCUT Q12H [facility] Ceftriaxone Sodium 1 gm/ (Sodium Chloride) 50 mls @ 100 mls/hr IV Q24H [facility] Azithromycin 500 mg/ Sodium (Chloride) 250 mls @ 125 mls/hr IV Q24H [facility] Melatonin (Melatonin 3 Mg Tablet) 6 mg PO BEDTIME PRN PRN Reason: Insomnia Ondansetron HCl (Ondansetron Hcl 4 Mg/2 Ml Vial) 4 mg IVPUSH Q8H PRN PRN Reason: Nausea and Vomiting Sodium Chloride (0.9 % Sodium Chloride Flush 3 Ml Syringe) 3 ml IVFLUSH QSHIFT [facility] Home Medications Medication Instructions Recorded Confirmed Last Taken Type montelukast 10 mg tablet 10 mg PO BEDTIME 07/28/20 09/25/23 12/09/22 History albuterol sulfate 90 mcg/actuation 2 puff inhalation Q6H PRN 08/01/20 09/25/23 12/09/22 History aerosol inhaler (ProAir HFA) Shortness Of Breath fluoxetine 40 mg capsule 40 mg PO QAM 08/01/20 09/25/23 12/27/22 History lorazepam 0.5 mg tablet 0.5 mg PO BID PRN Anxiety 08/01/20 09/25/23 12/09/22 History pantoprazole 40 mg tablet,delayed 40 mg PO DAILY 08/01/20 09/25/23 12/27/22 History release atorvastatin 40 mg tablet 40 mg PO DAILY 06/19/22 09/25/23 12/27/22 History cetirizine 10 mg tablet 10 mg PO DAILY 06/19/22 09/25/23 12/27/22 History rrobjjnpzq-esqvevsmzmqug-rwkddfdv 1 tab PO Q12H PRN Headache 12/09/22 09/25/23 Unknown History 50 mg-325 mg-40 mg tablet diclofenac sodium 1 % topical gel 4 g topical TID 08/22/23 09/25/23 Unknown History lisinopril 10 mg tablet 10 mg PO BEDTIME 08/22/23 09/25/23 Unknown History calcium carbonate 500 mg calcium 500 mg PO TID PRN Acid Reflux 09/25/23 09/25/23 Unknown History (1,250 mg) tablet cholecalciferol (vitamin D3) 1,250 1,250 mcg PO QMONTH 09/25/23 09/25/23 Unknown History mcg (50,000 unit) tablet ferrous gluconate 324 mg PO MOWEFR@0900 09/25/23 09/25/23 Unknown History sennosides 8.6 mg tablet (senna) 17.2 mg PO DAILY PRN Constipation 09/25/23 09/25/23 Unknown History sevelamer carbonate 800 mg tablet 800 mg PO TIDWM 09/25/23 09/25/23 Unknown History vitamin B complex-vitamin C-folic 1 tab PO DAILY 09/25/23 09/25/23 Unknown History acid 0.8 mg tablet Physical Exam Vital Signs and Narrative: Vital Signs: Last Vital Signs Temp 97.9 F 11/26/23 20:00 Pulse 81 11/26/23 20:00 Resp 14 11/26/23 20:00 BP 106/64 11/26/23 20:00 Pulse Ox 99 11/26/23 20:00 O2 Del Method Nasal Cannula 11/26/23 20:00 O2 Flow Rate 3 11/26/23 20:00 BMI result Body Mass Index 20.4 Elderly thinly built female lying in bed in mild distress on supplemental oxygen Neck supple Regular rate and rhythm, S1-S2 heard Bilateral crackles without wheezing Abdomen soft nontender, no guarding, no rigidity Patient is awake, alert and oriented to self, place, time and person ; no focal motor deficit Psych: Normal mood No pedal edema Results Labs 11/26/23 17:37 11/26/23 17:37 Labs: Laboratory Results - last 24 hr 11/26/23 17:37 MCV 97.6 MCH 31.6 MCHC 32.4 RDW 14.6 Plt Count 370 D MPV 9.8 Immature Gran % (Auto) 1.4 H Neut % (Auto) 82.5 H Lymph % (Auto) 11.3 L [place] % (Auto) 4.0 Eos % (Auto) 0.5 Baso % (Auto) 0.3 Lymph # (Auto) 1.7 [place] # (Auto) 0.6 Eos # (Auto) 0.1 Baso # (Auto) 0.0 Abs Immat Gran (auto) 0.20 H Absolute Neuts (auto) 12.1 H Absolute Nucleated RBC 0.020 H Nucleated RBC % (auto) 0.1 Anion Gap 22 H Estim Creat Clear Calc 4.3 Estimated GFR 6 Random Glucose 93 Calcium 10.1 D Magnesium 2.2 Total Bilirubin 0.4 AST 24 ALT 17 Alkaline Phosphatase 112 Total Protein 8.1 H Albumin 3.3 L COVID-19 (MARIANA) Negative COVID-19 Clin Com See Note Influenza Type A (STEPH) Negative Influenza Type B (STEPH) Negative Influenza A & B Note See Note Imaging Radiologist's Impressions: Impressions Chest X-Ray 11/26/23 17:27 IMPRESSION: 1. Central port catheter tip in right atrium. 2. Hazy bibasilar bronchovascular markings likely due to low inspiratory effort but underlying airspace disease not entirely excluded. Head CT 11/26/23 20:09 IMPRESSION: No acute findings. Generalized atrophy and nonspecific periventricular white matter disease. Abdomen/Pelvis CT 11/26/23 21:49 IMPRESSION: No acute findings. Mild biliary and pancreatic duct dilatation similar to previous exam. Post cholecystectomy. Small kidneys. Diverticulosis. Severe atherosclerotic disease Fleischner guidelines were followed. Chest CT 11/26/23 21:49 IMPRESSION: Bilateral lower lobe atelectasis or small infiltrates, left greater than right. Fleischner guidelines were followed. Assessment and Plan (1) Hypoxia: Status: Acute (2) Pneumonia: Status: Acute Plan This is a 83-year-old female with pertinent history of ESRD on hemodialysis T/T/S, mood disorder, essential hypertension, mixed hyperlipidemia, COPD not on home oxygen, chronic back pain with chronic opioid use who presents to the emergency department for evaluation of cough and dyspnea. #. Acute hypoxemic respiratory failure and sepsis due to community-acquired pneumonia: Will admit patient and initiate empiric IV antibiotics. Resuscitated with IV crystalloids. Lactic acid and blood culture obtained. Sputum culture, MRSA nasal screen and Legionella antigen pending #. Hypokalemia due to GI losses: Repleted #. ESRD on hemodialysis, Friday//Friday: Consulted Nephrology, appreciate assistance #. Essential hypertension: Continue home antihypertensives #. Mixed hyperlipidemia: On statin #. COPD: No exacerbation during admission. Continue home inhaler #. Chronic back pain with chronic opioid use Med rec pending DVT prophylaxis: Heparin Full code Admit as inpatient and will require two night minimum hospital stay for supplemental oxygen, IV antibiotics (as above), which is not possible in a lesser acute setting. Quality Stroke Does the patient have a stroke diagnosis?: No VTE Prior VTE?: No VTE Risk Level:: Medical - moderate - high VTE Device Contraindication: Treatment Not Indicated VTE Drug Contraindication: N/A - Med Ordered
[2023-11-26 22:53] VITALS: PULSE 82; RESP 13; O2SAT 98
[2023-11-26] MEDS: Albuterol/Iprat 2.5/0.5MG 3 ML AMPUL.NEB INHALE (22:53)
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
[2023-11-26 23:40] VITALS: PULSE 103; RESP 16; O2SAT 94
[2023-11-27] VITALS (8 sets, daily range): BP systolic 110–155; BP diastolic 53–72; PULSE 75–109; RESP 16–22; TEMP 36.3–36.7; O2SAT 91–98; BMI 17.4
[2023-11-27 00:42] LABS: INTERNATIONAL NORM RATIO 1.1 (0.9-1.1); Prothrombin Time 12.8 SEC (11.1-13.3)
[2023-11-27 00:45] LABS: Partial Thromboplastin Time 28.1 SEC (26.0-36.8)
[2023-11-27 00:48] LABS: Lactic Acid 1.1 mmol/L (0.5-2.0)
[2023-11-27 00:56] LABS: B Type Natriuretic Peptide 51 pg/mL (<100)
[2023-11-27] MEDS: cefTRIAXone sodium 1 GM in 0.9 % Sodium Chloride 50 ML IV ×2 (02:10→20:55)
[2023-11-27] MEDS: Heparin Sodium,Porcine 5,000 UNIT/ML VIAL 5000 UNIT SUBCUT ×3 (02:10→21:58)
[2023-11-27] MEDS: Potassium Chloride Packet 20 MEQ PACKET 40 MEQ PO (02:11)
[2023-11-27] MEDS: 0.9 % Sodium Chloride Flush 3 ML SYRINGE IVFLUSH ×3 (02:28→17:40)
[2023-11-27] MEDS: Azithromycin 500 MG in 0.9 % Sodium Chloride 250 ML 125 MG IV (02:30)
[2023-11-27 05:26] LABS: MANUAL DIFF FLAG NO
[2023-11-27 05:30] LABS: Basophils Absolute Auto 0.1 X10*3/uL (0.0-0.2); Basophils Percent Auto 0.6 % (0-2); Eosinophils Absolute Auto 0.1 X10*3/uL (0.0-0.4); Hematocrit 32.8 % (37.0-47.0); Hemoglobin 10.4 g/dl (12.0-16.0); Imm Gran Pct Auto 1.5 % (0.0-0.4); Lymphocytes Percent Auto 14.9 % (20-40); Mean Corpuscular HGB Conc 31.7 g/dl (31.0-35.0); Mean Corpuscular Hemoglobin 31.8 pg (27.0-33.0); Mean Corpuscular Volume 100.3 fL (80.0-98.0); Mean Platelet Volume 10.4 fL (9.4-12.3); Monocytes Absolute Auto 0.6 X10*3/uL (0.1-1.2); Monocytes Percent Auto 4.8 % (2-11); Neutrophils Absolute Auto 10.1 x10*3/uL (2.0-8.3); Neutrophils Percent Auto 77.2 % (45-73); Platelet Count 320 X10*3/uL (160-400); Red Blood Count 3.27 X10*6/uL (4.20-5.50); Red Cell Distribution Width 14.7 % (11.0-16.0); White Blood Count 13.1 X10*3/uL (4.8-10.8)
[2023-11-27 05:45] LABS: Anion Gap 24 (12-20); Blood Urea Nitrogen 53 mg/dL (9-16); Calcium 9.5 mg/dL (8.4-10.2); Carbon Dioxide 20 mmol/L (22-29); Chloride 97 mmol/L (96-108); Creatinine Clr Calc Pharmacy 3.9; Estimated Glomerular Filt Rate 5; Glucose Random 66 mg/dL (60-115); Sodium 136 mmol/L (135-145)
[2023-11-27] MEDS: Albuterol/Iprat 2.5/0.5MG 3 ML AMPUL.NEB INHALE ×4 (07:44→18:57)
[2023-11-27] MEDS: ondansetron HCL 4 MG/2 ML VIAL IVPUSH (08:00)
[2023-11-27] MEDS: oxyCODONE HCl Immed Release 5 MG TABLET PO ×2 (08:00→17:39)
--- NOTE | 2023-11-27 09:02 | PHA.MEDREC ---
Pharmacy Consult ? Medication Reconciliation Pharmacy has completed the medication reconciliation. Spoke to daughter Eamon via phone and confirmed medication list.
--- NOTE | 2023-11-27 11:08 | HO.PM.IMPN ---
Subjective Subjective Date of Service: 11/27/23 <Poppy Nicholson - Last Filed: 11/27/23 11:32> 11/27/23 <Anoop Urrutia MD - Last Filed: 11/27/23 11:57> Interval History: F/U on community acquired PNA with sepsis Says shes feeling slightly better today. Denies chest pain, palpitations, nausea/vomiting/diarrhea. Endorses subjective fever/chills and headache. <Poppy Nicholson - Last Filed: 11/27/23 11:32> F/U on community acquired PNA with sepsis, missed dilaysis Says shes feeling slightly better today. Denies chest pain, palpitations, nausea/vomiting/diarrhea. Endorses subjective fever/chills and headache. <Anoop Urrutia MD - Last Filed: 11/27/23 11:57> Review of Systems Review of Systems: Yes all other systems are reviewed and are negative <Poppy Nicholson - Last Filed: 11/27/23 11:32> Physical Exam Vital Signs: Vital Signs: Last Vital Signs Temp 97.9 F 11/26/23 20:00 Pulse 78 11/27/23 10:49 Resp 18 11/27/23 10:49 BP 121/65 11/27/23 10:49 Pulse Ox 96 11/27/23 10:49 O2 Del Method Nasal Cannula 11/27/23 10:49 O2 Flow Rate 4 11/27/23 10:49 BMI result Body Mass Index 20.4 <Poppy Nicholson - Last Filed: 11/27/23 11:32> General appearance: A&0 x 3, frail-appearing, no acute distress Chest: Dialysis catheter right chest CVS: RRR, S1/S2, no murmurs Pulm: No accessory muscle use, rhonchi/rales throughout Neuro: No gross abnormality Pysch: appropriate behavior and affect <Poppy Nicholson - Last Filed: 11/27/23 11:32> Objective Data Active Medications Acetaminophen (Acetaminophen 325 Mg Tablet) 650 mg PO Q6H PRN PRN Reason: Pain, Mild (Pain Scale 1-3) Acetaminophen (Acetaminophen Supp 650 Mg Supp.Rect) 650 mg VT Q6H PRN PRN Reason: Pain, Mild (Pain Scale 1-3) Albuterol/Ipratropium (Albuterol/Iprat 2.5/0.5mg 3 Ml Ampul.Neb) 3 ml INHALE RQ4H WHILE AWAKE [facility] Last Admin: 11/27/23 07:44 Dose: 3 ml Documented By: RADHA Albuterol/Ipratropium (Albuterol/Iprat 2.5/0.5mg 3 Ml Ampul.Neb) 3 ml INHALE Q4H PRN PRN Reason: Wheezing Heparin Sodium (Porcine) (Heparin Sodium,Porcine 5,000 Unit/Ml Vial) 5,000 unit SUBCUT Q12H [facility] Last Admin: 11/27/23 02:10 Dose: 5,000 unit Documented By: RISSA Ceftriaxone Sodium 1 gm/ (Sodium Chloride) 50 mls @ 100 mls/hr IV Q24H [facility] Last Infusion: 11/27/23 09:30 Dose: Infused Documented By: AMANDA Azithromycin 500 mg/ Sodium (Chloride) 250 mls @ 125 mls/hr IV Q24H [facility] Last Infusion: 11/27/23 09:30 Dose: Infused Documented By: AMANDA Melatonin (Melatonin 3 Mg Tablet) 6 mg PO BEDTIME PRN PRN Reason: Insomnia Ondansetron HCl (Ondansetron Hcl 4 Mg/2 Ml Vial) 4 mg IVPUSH Q8H PRN PRN Reason: Nausea and Vomiting Last Admin: 11/27/23 08:00 Dose: 4 mg Documented By: DEBI Oxycodone HCl (Oxycodone Hcl Immed Release 5 Mg Tablet) 5 mg PO Q4H PRN PRN Reason: Pain, Moderate(Pain Scale 4-6) Last Admin: 11/27/23 08:00 Dose: 5 mg Documented By: DEBI Sodium Chloride (0.9 % Sodium Chloride Flush 3 Ml Syringe) 3 ml IVFLUSH QSHIFT [facility] Last Admin: 11/27/23 08:00 Dose: 3 ml Documented By: DEBI <Poppy Nicholson - Last Filed: 11/27/23 11:32> Labs CBC & Chem 7: 11/27/23 05:16 11/27/23 05:16 <Poppy Nicholson - Last Filed: 11/27/23 11:32> Labs: Laboratory Results - last 24 hr 11/26/23 11/27/23 11/27/23 17:37 00:25 05:16 MCV 97.6 100.3 H MCH 31.6 31.8 MCHC 32.4 31.7 RDW 14.6 14.7 Plt Count 370 D 320 MPV 9.8 10.4 Immature Gran % (Auto) 1.4 H 1.5 H Neut % (Auto) 82.5 H 77.2 H Lymph % (Auto) 11.3 L 14.9 L [place] % (Auto) 4.0 4.8 Eos % (Auto) 0.5 1.0 Baso % (Auto) 0.3 0.6 Lymph # (Auto) 1.7 2.0 [place] # (Auto) 0.6 0.6 Eos # (Auto) 0.1 0.1 Baso # (Auto) 0.0 0.1 Abs Immat Gran (auto) 0.20 H 0.20 H Absolute Neuts (auto) 12.1 H 10.1 H Absolute Nucleated RBC 0.020 H 0.000 Nucleated RBC % (auto) 0.1 0.0 PT 12.8 INR 1.1 APTT 28.1 Anion Gap 22 H 24 H Estim Creat Clear Calc 4.3 3.9 Estimated GFR 6 5 Random Glucose 93 66 Lactic Acid 1.1 Calcium 10.1 D 9.5 Magnesium 2.2 Total Bilirubin 0.4 AST 24 ALT 17 Alkaline Phosphatase 112 B-Natriuretic Peptide 51 Total Protein 8.1 H Albumin 3.3 L COVID-19 (MARIANA) Negative COVID-19 Clin Com See Note Influenza Type A (STEPH) Negative Influenza Type B (STEPH) Negative Influenza A & B Note See Note <Ppopy Nicholson - Last Filed: 11/27/23 11:32> Assessment and Plan (1) Pneumonia: Status: Acute <Poppy Nicholson - Last Filed: 11/27/23 11:32> (2) Hypoxia: Status: Acute <Poppy Nicholson - Last Filed: 11/27/23 11:32> Assessment and Plan: This is a 83-year-old female with pertinent history of ESRD on hemodialysis T/, mood disorder, essential hypertension, mixed hyperlipidemia, COPD on home O2 prn, chronic back pain with chronic opioid use is admitted for treatment of acute hypoxemic failure and sepsis due to community acquired pneumonia. Acute hypoxemic respiratory failure and sepsis due to community-acquired pneumonia: - WBC decreased to 13.1 (previous 14.6) Continue ceftriaxone and azithromycin - Blood cultures pending - Monitor O2 and maintain >92% Hypokalemia due to GI losses: - Repleted and corrected to 5.0 (previous 3.1) - BMP in AM ESRD on hemodialysis, Friday//Friday: - Will receive dialysis per nephrology - Cr increased to 7.66 (previous 6.87) - CMP in AM Macrocytic anemia: - Check folate and B12 Essential hypertension: - Hold lisinopril until after dialysis? Mixed hyperlipidemia: On statin COPD: Continue home inhaler Chronic back pain with chronic opioid use DVT prophylaxis: Heparin Full code Need for inpatient: requires IV antibiotics, supplemental oxygen, and close monitoring of kidney function that cannot otherwise be performed in a less acute setting. <Poppy Nicholson - Last Filed: 11/27/23 11:32> This is a 83-year-old female with pertinent history of ESRD on hemodialysis T/, mood disorder, essential hypertension, mixed hyperlipidemia, COPD on home O2 prn, chronic back pain with chronic opioid use is admitted for treatment of acute hypoxemic failure and sepsis due to community acquired pneumonia. Acute hypoxemic respiratory failure and sepsis due to community-acquired pneumonia: - WBC decreased to 13.1 (previous 14.6) Continue ceftriaxone and azithromycin - Blood cultures pending - Monitor O2 and maintain >92% HypOkalemia due to GI losses: - Repleted and corrected to 5.0 (previous 3.1) - BMP in AM ESRD on hemodialysis, Friday//Friday: - Will receive dialysis per nephrology - Cr increased to 7.66 (previous 6.87) - CMP in AM Macrocytic anemia: - Check folate and B12 Essential hypertension: -continue home meds Mixed hyperlipidemia: On statin COPD: Continue home inhaler Chronic back pain with chronic opioid use moderate protein calory malnutrition--ensure DVT prophylaxis: Heparin Full code Need for inpatient: requires IV antibiotics for PNA, supplemental oxygen need, and need for acute dialysisc <Anoop Urrutia MD - Last Filed: 11/27/23 11:57> Quality Stroke Does the patient have a stroke diagnosis?: No <Poppy Nicholson - Last Filed: 11/27/23 11:32> VTE Prior VTE?: No <Poppy Nicholson - Last Filed: 11/27/23 11:32> VTE Risk Level:: Medical - moderate - high <Poppy Nicholson - Last Filed: 11/27/23 11:32> VTE Device Contraindication: Treatment Not Indicated <Poppy Nicholson - Last Filed: 11/27/23 11:32> VTE Drug Contraindication: N/A - Med Ordered <Poppy Nicholson - Last Filed: 11/27/23 11:32>
[2023-11-27] MEDS: Loratadine 10 MG TABLET PO (12:08)
[2023-11-27] MEDS: FLUoxetine HCl 20 MG CAPSULE 40 MG PO (12:08)
[2023-11-27] MEDS: Sevelamer Carbonate Tablet 800 MG TABLET PO ×2 (12:08→17:39)
[2023-11-27] MEDS: Atorvastatin Calcium 40 MG TABLET PO (12:08)
--- NOTE | 2023-11-27 13:03 | MHC.CLN ---
RE: CONSULT PT FAMILIAR FROM PREVIOUS ADMISSION LAST NUTRITION ASSESSMENT DATED 09/26/23 PT DX NON SEVERE MALNUTRITION IN THE CONTEXT OF CHRONIC ILLNESS PT IS MODERATELY MALNOURISHED DIET RX: 2GM NA -APPROPRIATE PT TAKES ENSURE AT HOME RECOMMEND ADDING ENSURE CLEAR TID SUPPLEMENT IS RENAL FRIENDLY SUPP TO PROVIDE 740KCALS, 24G PROTEIN MONITOR PO INTAKE AND ENCOURAGE SUPPLEMENTS FULL CLINICAL NUTRITION ASSESSMENT TO FOLLOW
--- NOTE | 2023-11-27 15:34 | PM.CNNEP ---
History of Present Illness Reason for Consult Consult date: 11/28/23 Reason for consult: ESRD management Chief Complaint Chief complaint: cough, dyspnea History of Present Illness Narrative: 83-year-old female with pertinent history of ESRD on hemodialysis T/T/S, mood disorder, essential hypertension, mixed hyperlipidemia, COPD not on home oxygen, chronic back pain with chronic opioid use who presents to the emergency department for evaluation of cough and dyspnea. Found to have PNA. Admitted for further management. Nephrology consulted for ESRD management. Last HD was on Friday. Review of Systems Review of Systems Denies CP, c/o of SOB Denies n/v/d/c Denies LE edema No dizziness Yes all other systems are reviewed and are negative Constitutional: Reports malaise PMFSH Past Medical History Medical History (Updated 11/28/23 @ 18:05 by Scotty Louis MD) ESRD needing dialysis Chronic kidney disease requiring chronic dialysis Compression fx, lumbar spine ESRD (end stage renal disease) CKD (chronic kidney disease) stage 4, GFR 15-29 ml/min Metabolic acidosis Hyperkalemia FLORECITA (acute kidney injury) Anemia CHF (congestive heart failure) Headache Hypertensive urgency CKD (chronic kidney disease) Anxiety and depression Hiatal hernia Chronic anemia Hyperlipidemia Back pain Osteoarthritis Anemia COPD (chronic obstructive pulmonary disease) GERD (gastroesophageal reflux disease) Asthma Hypertension Surgical History Surgical History Hx of breast biopsy History of esophagogastroduodenoscopy (EGD) Hx of colonoscopy History of left-sided carotid endarterectomy History of total right hip arthroplasty History of open reduction and internal fixation (ORIF) procedure History of cholecystectomy H/O of rectopexy History of bowel resection H/O: hysterectomy Social History Social History Household Members: Children Household Members Other:: DAUGHTER LAURECE Housing: Apartment Do you presently have visiting nurse or other home services: Yes Unable to assess alcohol history related to: Unknown Alcohol intake: current Alcohol intake frequency: does not drink Comment: tylenol 325mg po given & warm blanket, layed on left side Patient Tobacco Use Status: Former Tobacco user Quit Date: 12 YEARS AGO Tobacco use type: Cigarette Years Smoked: 20 e-Cigarette/Vaping Use: Never Used Second Hand Smoke Exposure: No Substance Use Type: Marijuana Advance Directives Date on File: 09/04/20 service: No Current occupational status: retired Meds Allergies Allergy/AdvReac Type Severity Reaction Status Date / Time codeine [Codeine] Allergy Mild RASH Verified 11/26/23 17:26 Sulfa (Sulfonamide Allergy Mild HIVES Verified 11/26/23 17:26 Antibiotics) [Sulfa (Sulfonamides)] ibuprofen [From Motrin] AdvReac Mild STOMACH Verified 11/26/23 17:26 UPSET, Rectal bleeding Active Medications: Current Medications Acetaminophen (Acetaminophen 325 Mg Tablet) 650 mg PO Q6H PRN PRN Reason: Pain, Mild (Pain Scale 1-3) Acetaminophen (Acetaminophen Supp 650 Mg Supp.Rect) 650 mg [place] Q6H PRN PRN Reason: Pain, Mild (Pain Scale 1-3) Acetaminophen/Butalbital/Caffeine (Butalb/Acetamin/Caff 50/325/40 Tablet) 1 tab PO Q12H PRN PRN Reason: Headache Albuterol Sulfate (Albuterol Sulfate 90 Mcg 8 Gm Inhaler) 2 puff INHALE Q6H PRN PRN Reason: Shortness Of Breath Albuterol/Ipratropium (Albuterol/Iprat 2.5/0.5mg 3 Ml Ampul.Neb) 3 ml INHALE RQ4H WHILE AWAKE [facility] Last Admin: 11/27/23 15:27 Dose: 3 ml Albuterol/Ipratropium (Albuterol/Iprat 2.5/0.5mg 3 Ml Ampul.Neb) 3 ml INHALE Q4H PRN PRN Reason: Wheezing Atorvastatin Calcium (Atorvastatin Calcium 40 Mg Tablet) 40 mg PO DAILY [facility] Last Admin: 11/27/23 12:08 Dose: 40 mg Calcium Carbonate (Calcium Carbonate 500 Mg Tablet) 500 mg PO TID PRN PRN Reason: Acid Reflux Ferrous Sulfate (Ferrous Sulfate 324 Mg Tablet.) 324 mg PO MOWEFR@0900 [facility] Fluoxetine HCl (Fluoxetine Hcl 20 Mg Capsule) 40 mg PO DAILY [facility] Last Admin: 11/27/23 12:08 Dose: 40 mg Gabapentin (Gabapentin 100 Mg Capsule) 100 mg PO BEDTIME [facility] Heparin Sodium (Porcine) (Heparin Sodium,Porcine 5,000 Unit/Ml Vial) 5,000 unit SUBCUT Q12H [facility] Last Admin: 11/27/23 11:25 Dose: 5,000 unit Ceftriaxone Sodium 1 gm/ (Sodium Chloride) 50 mls @ 100 mls/hr IV Q24H [facility] Last Infusion: 11/27/23 09:30 Dose: Infused Azithromycin 500 mg/ Sodium (Chloride) 250 mls @ 125 mls/hr IV Q24H [facility] Last Infusion: 11/27/23 09:30 Dose: Infused Lisinopril (Lisinopril 10 Mg Tablet) 10 mg PO BEDTIME [facility]; Protocol Loratadine (Loratadine 10 Mg Tablet) 10 mg PO DAILY [facility] Last Admin: 11/27/23 12:08 Dose: 10 mg Lorazepam (Lorazepam 0.5 Mg Tablet) 0.5 mg PO BID PRN PRN Reason: Anxiety Melatonin (Melatonin 3 Mg Tablet) 6 mg PO BEDTIME PRN PRN Reason: Insomnia Montelukast Sodium (Montelukast Sodium 10 Mg Tablet) 10 mg PO BEDTIME [facility] Omeprazole (Omeprazole 20 Mg Capsule.Dr) 20 mg PO DAILY@0630 [facility] Ondansetron HCl (Ondansetron Hcl 4 Mg/2 Ml Vial) 4 mg IVPUSH Q8H PRN PRN Reason: Nausea and Vomiting Last Admin: 11/27/23 08:00 Dose: 4 mg Oxycodone HCl (Oxycodone Hcl Immed Release 5 Mg Tablet) 5 mg PO Q4H PRN PRN Reason: Pain, Moderate(Pain Scale 4-6) Last Admin: 11/27/23 08:00 Dose: 5 mg Senna (Sennosides 8.6 Mg Tablet) 17.2 mg PO DAILY PRN PRN Reason: Constipation Sevelamer Carbonate (Sevelamer Carbonate Tablet 800 Mg Tablet) 800 mg PO TIDWM [facility] Last Admin: 11/27/23 12:08 Dose: 800 mg Sodium Chloride (0.9 % Sodium Chloride Flush 3 Ml Syringe) [facility] Last Admin: 11/27/23 08:00 Dose: 3 ml Home Medications Medication Instructions Recorded Confirmed Last Taken Type montelukast 10 mg tablet 10 mg PO BEDTIME 07/28/20 11/27/23 11/26/23 History albuterol sulfate 90 mcg/actuation 2 puff inhalation Q6H PRN 08/01/20 11/27/23 12/09/22 History aerosol inhaler (ProAir HFA) Shortness Of Breath fluoxetine 40 mg capsule 40 mg PO QAM 08/01/20 11/27/23 11/26/23 History lorazepam 0.5 mg tablet 0.5 mg PO BID PRN Anxiety 08/01/20 11/27/23 12/09/22 History pantoprazole 40 mg tablet,delayed 40 mg PO DAILY 08/01/20 11/27/23 11/26/23 History release atorvastatin 40 mg tablet 40 mg PO DAILY 06/19/22 11/27/23 11/26/23 History cetirizine 10 mg tablet 10 mg PO DAILY 06/19/22 11/27/23 11/26/23 History [id number]-[id number]-vamxrrtm 1 tab PO Q12H PRN Headache 12/09/22 11/27/23 Unknown History 50 mg-325 mg-40 mg tablet diclofenac sodium 1 % topical gel 4 g topical TID 08/22/23 11/27/23 11/26/23 History lisinopril 10 mg tablet 10 mg PO BEDTIME 08/22/23 11/27/23 11/26/23 History calcium carbonate 500 mg calcium 500 mg PO TID PRN Acid Reflux 09/25/23 11/27/23 Unknown History (1,250 mg) tablet cholecalciferol (vitamin D3) 1,250 1,250 mcg PO QMONTH 09/25/23 11/27/23 Unknown History mcg (50,000 unit) tablet ferrous gluconate 324 mg PO MOWEFR@0900 09/25/23 11/27/23 Unknown History sennosides 8.6 mg tablet (senna) 17.2 mg PO DAILY PRN Constipation 09/25/23 11/27/23 Unknown History sevelamer carbonate 800 mg tablet 800 mg PO TIDWM 09/25/23 11/27/23 11/26/23 History gabapentin 100 mg capsule 100 mg PO BEDTIME 11/27/23 11/27/23 11/25/23 History Physical Exam Vital Signs: Last Vital Signs Temp 98.0 F 11/27/23 11:30 Pulse 83 11/27/23 15:33 Resp 18 11/27/23 15:33 BP 155/72 H 11/27/23 11:30 Pulse Ox 97 11/27/23 11:30 O2 Del Method Nasal Cannula 11/27/23 11:30 O2 Flow Rate 4 11/27/23 11:30 BMI result Body Mass Index 17.4 Const General: comfortable and no acute distress Orientation/consciousness: oriented to person, oriented to place, oriented to time and patient oriented x3 HEENT Head: Yes normal to inspection Resp Effort & Inspection: audible wheezes Cardio Jugular venous distension: no JVD Rate: regular rate Rhythm: regular rhythm GI Auscultation: normal bowel sounds Neuro General: oriented to person, oriented to place, oriented to time and patient oriented x3 Results Lab Results 11/27/23 05:16 11/27/23 05:16 Lab results: Chemistry 11/26/23 11/27/23 17:37 05:16 Sodium 138 136 Potassium 3.1 L 5.0 D Carbon Dioxide 26 20 L BUN 47 H 53 H Creatinine 6.87 H* 7.66 H* Calcium 10.1 D 9.5 Hematology 11/26/23 11/27/23 17:37 05:16 WBC 14.6 H 13.1 H Hgb 10.5 L 10.4 L Plt Count 370 D 320 Assessment and Plan (1) ESRD needing dialysis: Status: Acute Plan 83-year-old female with pertinent history of ESRD on hemodialysis T/T/S, mood disorder, essential hypertension, mixed hyperlipidemia, COPD not on home oxygen, chronic back pain with chronic opioid use who presents to the emergency department for evaluation of cough and dyspnea. Found to have PNA. Nephrology consulted for ESRD management. ESRD on HD TTS Last HD was on Friday HTN BP today at target range Chronically, pt takes Lisinopril 10 mg oral daily at home Anemia Hb 10.5, at target range Bone metabolism On [place] 800 mg oral TID with meals Recommendations Will resume and arrange for her HD today, and then continue her TTS schedule Resume home dose lisinopril Resume home dose phos binders No epo for now Dose meds per HD Total time managing care of this patient today: 30 minutes. Procedures Date of Service Date of Service: 11/28/23
--- NOTE | 2023-11-27 16:13 | MHC.CM.PN ---
CM ATTEMPTED TO SEE PT SEVERAL TIMES, PT OFF UNIT CM ATTEMPTED TO REACH PTS DAUGHTER / HCP, HUMBERTO [phone], CALL WENT TO VM MESSAGE LEFT INFORMING HER OF PTS MEDICARE RIGHTS AND REQUESTING A RETURN CALL [employer] COMPLETED USING EMR PT LIVES WITH HER DAUGHTER WHO IS ALSO HER INTERVENTIONIST SHE ATTENDS HD AT [facility] HCP AND VIJAYA ON FILE PCP: FRANCISCO PIERRE IMM DELIVERED VIA VM, IT WILL BE DELIVERED TO PT ONCE SHE IS ON THE UNIT DCP: HOME RESUME INTERVENTIONIST AND HD DAUGHTER TO TRANSPORT
[2023-11-27] MEDS: Acetaminophen 325 MG TABLET 650 MG PO (17:10)
[2023-11-27] MEDS: lisinopriL 10 MG TABLET PO (20:55)
[2023-11-27] MEDS: Gabapentin 100 MG CAPSULE PO (20:55)
[2023-11-27] MEDS: Montelukast Sodium 10 MG TABLET PO (20:55)
[2023-11-27] MEDS: Azithromycin 500 MG in 0.9 % Sodium Chloride 250 ML 12 MG IV (21:59)
[2023-11-28] VITALS (11 sets, daily range): BP systolic 98–127; BP diastolic 53–64; PULSE 86–108; RESP 15–20; TEMP 36.5–37.3; O2SAT 90–97; BMI 19.5
[2023-11-28] MEDS: 0.9 % Sodium Chloride Flush 3 ML SYRINGE IVFLUSH ×3 (00:17→15:58)
[2023-11-28] MEDS: Omeprazole 20 MG CAPSULE.DR PO (06:05)
[2023-11-28] MEDS: oxyCODONE HCl Immed Release 5 MG TABLET PO ×4 (06:05→20:07)
[2023-11-28] MEDS: Albuterol/Iprat 2.5/0.5MG 3 ML AMPUL.NEB INHALE ×4 (07:59→18:56)
[2023-11-28] MEDS: Butalb/Acetamin/Caff 50/325/40 TABLET 1 TAB PO ×2 (08:27→20:07)
[2023-11-28] MEDS: FLUoxetine HCl 20 MG CAPSULE 40 MG PO (08:28)
[2023-11-28] MEDS: Loratadine 10 MG TABLET PO (08:28)
[2023-11-28] MEDS: Ferrous Sulfate 324 MG TABLET.DR PO (08:28)
[2023-11-28] MEDS: Atorvastatin Calcium 40 MG TABLET PO (08:28)
[2023-11-28] MEDS: Sevelamer Carbonate Tablet 800 MG TABLET PO ×3 (08:28→15:57)
--- NOTE | 2023-11-28 09:45 | HO.PM.IMPN ---
Subjective Subjective Date of Service: 11/28/23 Interval History: she is feeling better, still has cough with sputum production no fever, O2 90 on room,uses home O2 Physical Exam Vital Signs: Vital Signs: Last Vital Signs Temp 97.9 F 11/28/23 07:46 Pulse 87 11/28/23 07:59 Resp 15 11/28/23 07:59 BP 98/53 L 11/28/23 07:46 Pulse Ox 90 L 11/28/23 09:26 O2 Del Method Room Air 11/28/23 09:26 O2 Flow Rate 3.0 11/28/23 07:46 BMI result Body Mass Index 17.4 General appearance: A&0 x 3, frail-appearing, no acute distress Chest: Dialysis catheter right chest CVS: RRR, S1/S2, no murmurs Pulm: No accessory muscle use, rhonchi/rales throughout Neuro: No gross abnormality Pysch: appropriate behavior and affect Objective Data Active Medications Acetaminophen (Acetaminophen 325 Mg Tablet) 650 mg PO Q6H PRN PRN Reason: Pain, Mild (Pain Scale 1-3) Last Admin: 11/27/23 17:10 Dose: 650 mg Documented By: SHERIF Acetaminophen (Acetaminophen Supp 650 Mg Supp.Rect) 650 mg NV Q6H PRN PRN Reason: Pain, Mild (Pain Scale 1-3) Acetaminophen/Butalbital/Caffeine (Butalb/Acetamin/Caff 50/325/40 Tablet) 1 tab PO Q12H PRN PRN Reason: Headache Last Admin: 11/28/23 08:27 Dose: 1 tab Documented By: YONI Albuterol Sulfate (Albuterol Sulfate 90 Mcg 8 Gm Inhaler) 2 puff INHALE Q6H PRN PRN Reason: Shortness Of Breath Albuterol/Ipratropium (Albuterol/Iprat 2.5/0.5mg 3 Ml Ampul.Neb) 3 ml INHALE RQ4H WHILE AWAKE [facility] Last Admin: 11/28/23 07:59 Dose: 3 ml Documented By: BELINDA Albuterol/Ipratropium (Albuterol/Iprat 2.5/0.5mg 3 Ml Ampul.Neb) 3 ml INHALE Q4H PRN PRN Reason: Wheezing Atorvastatin Calcium (Atorvastatin Calcium 40 Mg Tablet) 40 mg PO DAILY [facility] Last Admin: 11/28/23 08:28 Dose: 40 mg Documented By: YONI Calcium Carbonate (Calcium Carbonate 500 Mg Tablet) 500 mg PO TID PRN PRN Reason: Acid Reflux Ferrous Sulfate (Ferrous Sulfate 324 Mg Tablet.) 324 mg PO MOWEFR@0900 [facility] Last Admin: 11/28/23 08:28 Dose: 324 mg Documented By: YONI Fluoxetine HCl (Fluoxetine Hcl 20 Mg Capsule) 40 mg PO DAILY [facility] Last Admin: 11/28/23 08:28 Dose: 40 mg Documented By: YONI Gabapentin (Gabapentin 100 Mg Capsule) 100 mg PO BEDTIME [facility] Last Admin: 11/27/23 20:55 Dose: 100 mg Documented By: SHERIF Heparin Sodium (Porcine) (Heparin Sodium,Porcine 5,000 Unit/Ml Vial) 5,000 unit SUBCUT Q12H [facility] Last Admin: 11/27/23 21:58 Dose: 5,000 unit Documented By: SHERIF Ceftriaxone Sodium 1 gm/ (Sodium Chloride) 50 mls @ 100 mls/hr IV Q24H [facility] Last Infusion: 11/27/23 21:42 Dose: Infused Documented By: SHERIF Azithromycin 500 mg/ Sodium (Chloride) 250 mls @ 125 mls/hr IV Q24H [facility] Last Admin: 11/27/23 21:59 Dose: 12 mls/hr Documented By: SHERIF Lisinopril (Lisinopril 10 Mg Tablet) 10 mg PO BEDTIME [facility]; Protocol Last Admin: 11/27/23 20:55 Dose: 10 mg Documented By: SHERIF Loratadine (Loratadine 10 Mg Tablet) 10 mg PO DAILY [facility] Last Admin: 11/28/23 08:28 Dose: 10 mg Documented By: YONI Lorazepam (Lorazepam 0.5 Mg Tablet) 0.5 mg PO BID PRN PRN Reason: Anxiety Melatonin (Melatonin 3 Mg Tablet) 6 mg PO BEDTIME PRN PRN Reason: Insomnia Montelukast Sodium (Montelukast Sodium 10 Mg Tablet) 10 mg PO BEDTIME [facility] Last Admin: 11/27/23 20:55 Dose: 10 mg Documented By: SHERIF Omeprazole (Omeprazole 20 Mg Capsule.) 20 mg PO DAILY@0630 [facility] Last Admin: 11/28/23 06:05 Dose: 20 mg Documented By: TAVARES Ondansetron HCl (Ondansetron Hcl 4 Mg/2 Ml Vial) 4 mg IVPUSH Q8H PRN PRN Reason: Nausea and Vomiting Last Admin: 11/27/23 08:00 Dose: 4 mg Documented By: DEBI Oxycodone HCl (Oxycodone Hcl Immed Release 5 Mg Tablet) 5 mg PO Q4H PRN PRN Reason: Pain, Moderate(Pain Scale 4-6) Last Admin: 11/28/23 06:05 Dose: 5 mg Documented By: TAVARES Senna (Sennosides 8.6 Mg Tablet) 17.2 mg PO DAILY PRN PRN Reason: Constipation Sevelamer Carbonate (Sevelamer Carbonate Tablet 800 Mg Tablet) 800 mg PO TIDWM [facility] Last Admin: 11/28/23 08:28 Dose: 800 mg Documented By: YONI Sodium Chloride (0.9 % Sodium Chloride Flush 3 Ml Syringe) [facility] Last Admin: 11/28/23 08:27 Dose: 3 ml Documented By: YONI Labs 11/27/23 05:16 11/27/23 05:16 Microbiology Microbiology Results: Microbiology 11/27/23 00:25 Blood Culture - Preliminary Blood - Venous No growth after 24 hours. 11/27/23 00:20 Blood Culture - Preliminary Blood - Venous No growth after 24 hours. Assessment and Plan (1) Pneumonia: Status: Acute (2) Hypoxia: Status: Acute Plan This is a 83-year-old female with pertinent history of ESRD on hemodialysis /, mood disorder, essential hypertension, mixed hyperlipidemia, COPD on home O2 prn, chronic back pain with chronic opioid use is admitted for treatment of acute hypoxemic failure and sepsis due to community acquired pneumonia. Acute hypoxemic respiratory failure and sepsis due to community-acquired pneumonia, feels better -continue Ceft +Azithro started 11/26, cultures pending HypOkalemia--corrected ESRD on hemodialysis, Friday//Friday: anemia of chronic disease, stable Essential hypertension: -continue home meds Mixed hyperlipidemia: statin COPD, no exacerbation, Continue home inhaler Chronic back pain with chronic opioid use moderate protein calory malnutrition--ensure DVT prophylaxis: Heparin Full code Need for inpatient: requires IV antibiotics for PNA, supplemental oxygen Quality Stroke Does the patient have a stroke diagnosis?: No VTE Prior VTE?: No VTE Risk Level:: Medical - moderate - high VTE Device Contraindication: Treatment Not Indicated VTE Drug Contraindication: N/A - Med Ordered
--- NOTE | 2023-11-28 10:22 | MHC.CM.PN ---
EMR REVIEWED. PER MD ROUNDS PATIENT IS NOT MEDICALLY CLEARED FOR DC. PLAN REMAINS HOME, RESUME [employer] [facility] [facility], RESUME HD AT [facility] TTS. DTR TO TRANSPORT. CM WILL CONTINUE TO FOLLOW.
[2023-11-28] MEDS: Heparin Sodium,Porcine 5,000 UNIT/ML VIAL 5000 UNIT SUBCUT ×2 (10:47→22:46)
--- NOTE | 2023-11-28 10:57 | PC.NURSE ---
Addendum entered by Iza Pierre RN 11/28/23 11:16: Per MD - patient on Oxycodone 5mg at home and dose will not be increased at this time. Patient informed and agreeable to Oxycodone 5mg PO and administered per EMAR. Original Note: Patient complaining of moderate generalized pain explaining it as chronic . Patient offered Oxycodone 5mg per EMAR but patient insisting she has been receiving 10mg. Patient refusing 5mg at this time - Dr Urrutia notified and med req to be evaluated per MD.
[2023-11-28 11:39] LABS: MRSA Nasal PCR NEGATIVE (Negative); SA Nasal PCR NEGATIVE (Negative)
--- NOTE | 2023-11-28 12:05 | MHC.CLN ---
NUTRITION DIET=2 GRAM SODIUM. TAKES CHOCOLATE SUPPLEMENT AT HOME. DOES NOT WANT ENSURE CLEAR. WILL TAKE GELATEIN SUPPLEMENT. ADDING GELATEIN BID (320 KCALS, 40 G PROTEIN) TO PROMOTE NUTRITIONAL INTAKE. SUPPLEMENT APPROPRIATE WITH DIALYSIS. NUTRITION DX NON SEVERE, MODERATE, MALNUTRITION IN THE CONTEXT OF CHRONIC ILLNESS. WEIGHED TODAY USING BEDSCALE. FOLLOW FOR PO INTAKE AND LABS. SEE CLINICAL NUTRITION ASSESSMENT 11/28/23.
[2023-11-28] MEDS: Gabapentin 100 MG CAPSULE PO (20:02)
[2023-11-28] MEDS: Montelukast Sodium 10 MG TABLET PO (20:02)
[2023-11-28] MEDS: cefTRIAXone sodium 1 GM in 0.9 % Sodium Chloride 50 ML IV (22:17)
[2023-11-28] MEDS: Azithromycin 500 MG in 0.9 % Sodium Chloride 250 ML 125 MG IV (22:46)
[2023-11-29] VITALS (9 sets, daily range): BP systolic 97–127; BP diastolic 52–68; PULSE 95–107; RESP 16–17; TEMP 36.7–37.3; O2SAT 92–99
[2023-11-29] MEDS: oxyCODONE HCl Immed Release 5 MG TABLET PO ×4 (00:22→20:54)
[2023-11-29] MEDS: Omeprazole 20 MG CAPSULE.DR PO (06:11)
[2023-11-29] MEDS: Albuterol/Iprat 2.5/0.5MG 3 ML AMPUL.NEB INHALE ×3 (07:44→19:31)
[2023-11-29] MEDS: Sevelamer Carbonate Tablet 800 MG TABLET PO ×2 (07:57→17:13)
[2023-11-29] MEDS: Butalb/Acetamin/Caff 50/325/40 TABLET 1 TAB PO ×2 (07:57→20:54)
[2023-11-29] MEDS: Loratadine 10 MG TABLET PO (07:58)
[2023-11-29] MEDS: FLUoxetine HCl 20 MG CAPSULE 40 MG PO (07:58)
[2023-11-29] MEDS: Atorvastatin Calcium 40 MG TABLET PO (07:58)
[2023-11-29] MEDS: 0.9 % Sodium Chloride Flush 3 ML SYRINGE IVFLUSH ×3 (07:59→22:34)
--- NOTE | 2023-11-29 08:05 | P.PNIM_ITS ---
Subjective Subjective Date of Service: 11/29/23 Interval History: Overall feeling better, persistent cough, oxygenation is better has migraine headache Physical Exam 2 Vital Signs: Vital Signs: Last Vital Signs Temp 98.6 F 11/29/23 07:59 Pulse 98 11/29/23 07:59 Resp 17 11/29/23 07:59 BP 112/59 L 11/29/23 07:59 Pulse Ox 92 11/29/23 07:59 O2 Del Method Room Air 11/29/23 07:59 O2 Flow Rate 3.0 11/28/23 07:46 BMI result Body Mass Index 19.5 General appearance: A&0 x 3, frail-appearing, no acute distress Chest: Dialysis catheter right chest CVS: RRR, S1/S2, no murmurs Pulm: No accessory muscle use, rhonchi/rales throughout Neuro: No gross abnormality Pysch: appropriate behavior and affect Objective Data Active Medications Acetaminophen (Acetaminophen 325 Mg Tablet) 650 mg PO Q6H PRN PRN Reason: Pain, Mild (Pain Scale 1-3) Last Admin: 11/27/23 17:10 Dose: 650 mg Documented By: SHERIF Acetaminophen (Acetaminophen Supp 650 Mg Supp.Rect) 650 mg [place] Q6H PRN PRN Reason: Pain, Mild (Pain Scale 1-3) Acetaminophen/Butalbital/Caffeine (Butalb/Acetamin/Caff 50/325/40 Tablet) 1 tab PO Q12H PRN PRN Reason: Headache Last Admin: 11/28/23 20:07 Dose: 1 tab Documented By: CIELO Albuterol Sulfate (Albuterol Sulfate 90 Mcg 8 Gm Inhaler) 2 puff INHALE Q6H PRN PRN Reason: Shortness Of Breath Albuterol/Ipratropium (Albuterol/Iprat 2.5/0.5mg 3 Ml Ampul.Neb) 3 ml INHALE RQ4H WHILE AWAKE [facility] Last Admin: 11/29/23 07:44 Dose: 3 ml Documented By: KINSEY Albuterol/Ipratropium (Albuterol/Iprat 2.5/0.5mg 3 Ml Ampul.Neb) 3 ml INHALE Q4H PRN PRN Reason: Wheezing Atorvastatin Calcium (Atorvastatin Calcium 40 Mg Tablet) 40 mg PO DAILY [facility] Last Admin: 11/28/23 08:28 Dose: 40 mg Documented By: YONI Calcium Carbonate (Calcium Carbonate 500 Mg Tablet) 500 mg PO TID PRN PRN Reason: Acid Reflux Ferrous Sulfate (Ferrous Sulfate 324 Mg Tablet.) 324 mg PO MOWEFR@0900 [facility] Last Admin: 11/28/23 08:28 Dose: 324 mg Documented By: YONI Fluoxetine HCl (Fluoxetine Hcl 20 Mg Capsule) 40 mg PO DAILY [facility] Last Admin: 11/28/23 08:28 Dose: 40 mg Documented By: YONI Gabapentin (Gabapentin 100 Mg Capsule) 100 mg PO BEDTIME [facility] Last Admin: 11/28/23 20:02 Dose: 100 mg Documented By: CIELO Heparin Sodium (Porcine) (Heparin Sodium,Porcine 5,000 Unit/Ml Vial) 5,000 unit SUBCUT Q12H [facility] Last Admin: 11/28/23 22:46 Dose: 5,000 unit Documented By: CIELO Ceftriaxone Sodium 1 gm/ (Sodium Chloride) 50 mls @ 100 mls/hr IV Q24H [facility] Last Infusion: 11/28/23 22:49 Dose: Infused Documented By: CIELO Azithromycin 500 mg/ Sodium (Chloride) 250 mls @ 125 mls/hr IV Q24H [facility] Last Infusion: 11/29/23 00:54 Dose: Infused Documented By: THOMAS Lisinopril (Lisinopril 10 Mg Tablet) 10 mg PO BEDTIME [facility]; Protocol Last Admin: 11/28/23 20:10 Dose: Not Given Documented By: CIELO Non-Admin Reason: Decreased Blood Pressure Loratadine (Loratadine 10 Mg Tablet) 10 mg PO DAILY [facility] Last Admin: 11/28/23 08:28 Dose: 10 mg Documented By: YONI Lorazepam (Lorazepam 0.5 Mg Tablet) 0.5 mg PO BID PRN PRN Reason: Anxiety Melatonin (Melatonin 3 Mg Tablet) 6 mg PO BEDTIME PRN PRN Reason: Insomnia Montelukast Sodium (Montelukast Sodium 10 Mg Tablet) 10 mg PO BEDTIME [facility] Last Admin: 11/28/23 20:02 Dose: 10 mg Documented By: CIELO Omeprazole (Omeprazole 20 Mg Capsule.) 20 mg PO DAILY@0630 [facility] Last Admin: 11/29/23 06:11 Dose: 20 mg Documented By: THOMAS Ondansetron HCl (Ondansetron Hcl 4 Mg/2 Ml Vial) 4 mg IVPUSH Q8H PRN PRN Reason: Nausea and Vomiting Last Admin: 11/27/23 08:00 Dose: 4 mg Documented By: DEBI Oxycodone HCl (Oxycodone Hcl Immed Release 5 Mg Tablet) 5 mg PO Q4H PRN PRN Reason: Pain, Moderate(Pain Scale 4-6) Last Admin: 11/29/23 00:22 Dose: 5 mg Documented By: THOMAS Senna (Sennosides 8.6 Mg Tablet) 17.2 mg PO DAILY PRN PRN Reason: Constipation Sevelamer Carbonate (Sevelamer Carbonate Tablet 800 Mg Tablet) 800 mg PO TIDWM [facility] Last Admin: 11/28/23 15:57 Dose: 800 mg Documented By: OLIMPIA Sodium Chloride (0.9 % Sodium Chloride Flush 3 Ml Syringe) [facility] Last Admin: 11/29/23 00:24 Dose: Not Given Documented By: THOMAS Non-Admin Reason: IV Running Labs 11/27/23 05:16 11/27/23 05:16 Labs: Laboratory Results - last 24 hr 11/28/23 09:19 Nasal Screen MRSA (PCR) NEGATIVE Nasal S. aureus Screen NEGATIVE Nasal MRSA/S.aureus Interp SEE NOTE Microbiology Microbiology Results: Microbiology 11/27/23 00:25 Blood Culture - Preliminary Blood - Venous No growth after 48 hours. 11/27/23 00:20 Blood Culture - Preliminary Blood - Venous No growth after 48 hours. Assessment and Plan (1) Pneumonia: Status: Acute (2) Hypoxia: Status: Acute Plan This is a 83-year-old female with pertinent history of ESRD on hemodialysis //Fri, mood disorder, essential hypertension, mixed hyperlipidemia, COPD on home O2 prn, chronic back pain with chronic opioid use is admitted for treatment of acute hypoxemic failure and sepsis due to community acquired pneumonia. Acute hypoxemic respiratory failure and sepsis due to community-acquired pneumonia, feels better, off oxygen -continue Ceft +Azithro started 11/26, cultures negative, change to PO Ceftin tomorrow HypOkalemia--corrected ESRD on hemodialysis, Friday//Friday anemia of chronic disease, stable Essential hypertension: -continue home meds Mixed hyperlipidemia: statin COPD, no exacerbation, Continue home inhaler Chronic back pain with chronic opioid use moderate protein calory malnutrition--ensure DVT prophylaxis: Heparin Full code Need for inpatient: requires IV antibiotics for PNA, supplemental oxygen Quality Stroke Does the patient have a stroke diagnosis?: No VTE Prior VTE?: No VTE Risk Level:: Medical - moderate - high VTE Device Contraindication: Treatment Not Indicated VTE Drug Contraindication: N/A - Med Ordered
[2023-11-29] MEDS: Midodrine HCl 5 MG TABLET PO (13:42)
[2023-11-29] MEDS: 0.9 % Sodium Chloride 500 ML 999 ML IV (14:00)
--- NOTE | 2023-11-29 14:09 | P.PNNP_ITS ---
Subjective Subjective Date of Service: 11/29/23 Interval history: HD today going well patient is stable Physical Exam 2 Vital Signs: Vital Signs: Last Vital Signs Temp 98.6 F 11/29/23 07:59 Pulse 98 11/29/23 07:59 Resp 17 11/29/23 07:59 BP 112/59 L 11/29/23 07:59 Pulse Ox 92 11/29/23 07:59 O2 Del Method Room Air 11/29/23 07:59 O2 Flow Rate 3.0 11/28/23 07:46 BMI result Body Mass Index 19.5 Const: General: comfortable Orientation/consciousness: oriented to person Cardio: Rate: regular rate Rhythm: regular rhythm Neuro: General: oriented to person Objective Data Labs 11/27/23 05:16 11/27/23 05:16 Microbiology Microbiology Results: Microbiology 11/27/23 00:25 Blood - Venous Blood Culture - Preliminary No growth after 48 hours. 11/27/23 00:20 Blood - Venous Blood Culture - Preliminary No growth after 48 hours. Procedures Date of Service Date of Service: 11/29/23 Assessment & Plan Assessment and plan (1) ESRD needing dialysis: Status: Acute Plan 83-year-old female with pertinent history of ESRD on hemodialysis T/T/S, mood disorder, essential hypertension, mixed hyperlipidemia, COPD not on home oxygen, chronic back pain with chronic opioid use who presents to the emergency department for evaluation of cough and dyspnea. Found to have PNA. Nephrology consulted for ESRD management. ESRD on HD TTS HTN BP today at target range Chronically, pt takes Lisinopril 10 mg oral daily at home Anemia Hb 10.5, at target range Bone metabolism On Sevelemer 800 mg oral TID with meals Recommendations Will HD today per TTS schedule c/w lisinopril c/w sevelamer No epo for now Dose meds per HD Time Spent With Patient Time: Total time managing care of this patient today ____ minutes. Progress Note: Quality Stroke Does the patient have a stroke diagnosis?: No
--- NOTE | 2023-11-29 14:52 | PM.EVENT ---
Event Note Date of Service: 11/29/23 Event Note: pt became hypotensive after dialysis with SBP mostly in 80s but did drop into 70s, she was awake alert the entire time, c/o of headache which has been an ongoing thing. Given midodrine. After multiple attempts, an Iv wasestablished given 500 cc of fluid and BP rapidly recovered presently 118/58 Time Spent With Patient Time: Total time managing care of this patient today ____ minutes.
--- NOTE | 2023-11-29 15:52 | PC.NURSE ---
TIME: 1330. Pt came back from HD. Primary RN states pt was dizzy and weak after walking to Bathroom with walker. Pt back in Bed, BP noted to be soft, mid 70's, Question to much fluid taken from HD? MD paged to bedside. IV line not functioning. BP Trended, Pt placed in trendelenburg, BP continued to be low, IV placed after multiple attempts via US Guided IV with PLASTIC BLOCK BOILER RELINER. Blous 500cc NS and 5mg Midodrine PO given. BP back up to high 90's after Bolus and oral medications.
--- NOTE | 2023-11-29 16:50 | PC.NURSE ---
This afternoon patient became unwell after returning to unit from HD. Pt ambulated to toilet and had BM. Directly afterwards, the patient endorsed dizziness, weakness, feeling faint, and pounding headache. Pt attempted to ambulate back to bed but required max assist via WC. Initial BP @ 1317 76/53, HR 107. MD Urrutia and charge accounts audit clerk at bedside. Plan to give IV fluids and PO midodrine. Current IV had infiltrated. This RN attempted to place PIV unsuccessfully. A US guided PIV was established at approx 1400 at which time fluids were initiated. BPs were as follows: 1320 82/55, HR 107 1325 90/52, HR 107 1335 88/47, HR 101-- pt received PO midodrine 1345 90/55, HR 109 1350 77/48, HR 109 1358 99/50, HR 101-- IV fluids initiated 1405 99/50, HR 101 1410 98/49, HR 104 1415 100/71, HR 93 1430 118/58, HR 97 -- IV fluids complete
[2023-11-29] MEDS: Montelukast Sodium 10 MG TABLET PO (20:49)
[2023-11-29] MEDS: Gabapentin 100 MG CAPSULE PO (20:49)
[2023-11-29] MEDS: cefTRIAXone sodium 1 GM in 0.9 % Sodium Chloride 50 ML IV (22:33)
[2023-11-29] MEDS: Azithromycin 500 MG in 0.9 % Sodium Chloride 250 ML 125 MG IV (23:05)
[2023-11-29] MEDS: Heparin Sodium,Porcine 5,000 UNIT/ML VIAL 5000 UNIT SUBCUT (23:05)
[2023-11-30] VITALS (9 sets, daily range): BP systolic 99–137; BP diastolic 54–67; PULSE 86–113; RESP 13–18; TEMP 36.4–37.4; O2SAT 91–98
[2023-11-30] MEDS: Omeprazole 20 MG CAPSULE.DR PO (06:35)
[2023-11-30] MEDS: Albuterol/Iprat 2.5/0.5MG 3 ML AMPUL.NEB INHALE ×4 (07:27→19:00)
[2023-11-30] MEDS: Sevelamer Carbonate Tablet 800 MG TABLET PO ×2 (07:56→16:52)
[2023-11-30] MEDS: FLUoxetine HCl 20 MG CAPSULE 40 MG PO (07:56)
[2023-11-30] MEDS: Loratadine 10 MG TABLET PO (07:57)
[2023-11-30] MEDS: Atorvastatin Calcium 40 MG TABLET PO (07:57)
[2023-11-30] MEDS: oxyCODONE HCl Immed Release 5 MG TABLET PO ×4 (07:57→21:56)
[2023-11-30] MEDS: 0.9 % Sodium Chloride Flush 3 ML SYRINGE IVFLUSH ×3 (08:00→21:57)
--- NOTE | 2023-11-30 08:24 | HO.PM.IMPN ---
Subjective Subjective Date of Service: 11/30/23 Interval History: follow up on pna, still coughing but overall BP Transient hypotension yesterday after dialysis resolved with IVF Physical Exam Vital Signs: Vital Signs: Last Vital Signs Temp 99.3 F 11/30/23 07:39 Pulse 99 11/30/23 07:39 Resp 17 11/30/23 07:39 BP 118/56 L 11/30/23 07:39 Pulse Ox 91 L 11/30/23 07:39 O2 Del Method Room Air 11/30/23 07:39 O2 Flow Rate 3.0 11/28/23 07:46 BMI result Body Mass Index 19.5 General appearance: A&0 x 3, frail-appearing, no acute distress Chest: Dialysis catheter right chest CVS: RRR, S1/S2, no murmurs Pulm: No accessory muscle use, rhonchi/rales throughout Neuro: No gross abnormality Pysch: appropriate behavior and affect Objective Data Active Medications Acetaminophen (Acetaminophen 325 Mg Tablet) 650 mg PO Q6H PRN PRN Reason: Pain, Mild (Pain Scale 1-3) Last Admin: 11/27/23 17:10 Dose: 650 mg Documented By: SHERIF Acetaminophen (Acetaminophen Supp 650 Mg Supp.Rect) 650 mg [place] Q6H PRN PRN Reason: Pain, Mild (Pain Scale 1-3) Acetaminophen/Butalbital/Caffeine (Butalb/Acetamin/Caff 50/325/40 Tablet) 1 tab PO Q12H PRN PRN Reason: Headache Last Admin: 11/29/23 20:54 Dose: 1 tab Documented By: CIELO Albuterol Sulfate (Albuterol Sulfate 90 Mcg 8 Gm Inhaler) 2 puff INHALE Q6H PRN PRN Reason: Shortness Of Breath Albuterol/Ipratropium (Albuterol/Iprat 2.5/0.5mg 3 Ml Ampul.Neb) 3 ml INHALE RQ4H WHILE AWAKE [facility] Last Admin: 11/30/23 07:27 Dose: 3 ml Documented By: JORGE Albuterol/Ipratropium (Albuterol/Iprat 2.5/0.5mg 3 Ml Ampul.Neb) 3 ml INHALE Q4H PRN PRN Reason: Wheezing Atorvastatin Calcium (Atorvastatin Calcium 40 Mg Tablet) 40 mg PO DAILY [facility] Last Admin: 11/30/23 07:57 Dose: 40 mg Documented By: AURA Calcium Carbonate (Calcium Carbonate 500 Mg Tablet) 500 mg PO TID PRN PRN Reason: Acid Reflux Ferrous Sulfate (Ferrous Sulfate 324 Mg Tablet.) 324 mg PO MOWEFR@0900 [facility] Last Admin: 11/28/23 08:28 Dose: 324 mg Documented By: YONI Fluoxetine HCl (Fluoxetine Hcl 20 Mg Capsule) 40 mg PO DAILY [facility] Last Admin: 11/30/23 07:56 Dose: 40 mg Documented By: AURA Gabapentin (Gabapentin 100 Mg Capsule) 100 mg PO BEDTIME [facility] Last Admin: 11/29/23 20:49 Dose: 100 mg Documented By: CIELO Heparin Sodium (Porcine) (Heparin Sodium,Porcine 5,000 Unit/Ml Vial) 5,000 unit SUBCUT Q12H [facility] Last Admin: 11/29/23 23:05 Dose: 5,000 unit Documented By: CIELO Ceftriaxone Sodium 1 gm/ (Sodium Chloride) 50 mls @ 100 mls/hr IV Q24H [facility] Last Infusion: 11/29/23 23:03 Dose: Infused Documented By: CIELO Azithromycin 500 mg/ Sodium (Chloride) 250 mls @ 125 mls/hr IV Q24H [facility] Last Infusion: 11/30/23 01:11 Dose: Infused Documented By: CIELO Lisinopril (Lisinopril 10 Mg Tablet) 10 mg PO BEDTIME [facility]; Protocol Last Admin: 11/29/23 20:59 Dose: Not Given Documented By: CIELO Non-Admin Reason: Decreased Blood Pressure Loratadine (Loratadine 10 Mg Tablet) 10 mg PO DAILY [facility] Last Admin: 11/30/23 07:57 Dose: 10 mg Documented By: AURA Lorazepam (Lorazepam 0.5 Mg Tablet) 0.5 mg PO BID PRN PRN Reason: Anxiety Melatonin (Melatonin 3 Mg Tablet) 6 mg PO BEDTIME PRN PRN Reason: Insomnia Montelukast Sodium (Montelukast Sodium 10 Mg Tablet) 10 mg PO BEDTIME [facility] Last Admin: 11/29/23 20:49 Dose: 10 mg Documented By: CIELO Omeprazole (Omeprazole 20 Mg Capsule.) 20 mg PO DAILY@0630 [facility] Last Admin: 11/30/23 06:35 Dose: 20 mg Documented By: CIELO Ondansetron HCl (Ondansetron Hcl 4 Mg/2 Ml Vial) 4 mg IVPUSH Q8H PRN PRN Reason: Nausea and Vomiting Last Admin: 11/27/23 08:00 Dose: 4 mg Documented By: DEBI Oxycodone HCl (Oxycodone Hcl Immed Release 5 Mg Tablet) 5 mg PO Q4H PRN PRN Reason: Pain, Moderate(Pain Scale 4-6) Last Admin: 11/30/23 07:57 Dose: 5 mg Documented By: AURA Senna (Sennosides 8.6 Mg Tablet) 17.2 mg PO DAILY PRN PRN Reason: Constipation Sevelamer Carbonate (Sevelamer Carbonate Tablet 800 Mg Tablet) 800 mg PO TIDWM [facility] Last Admin: 11/30/23 07:56 Dose: 800 mg Documented By: AURA Sodium Chloride (0.9 % Sodium Chloride Flush 3 Ml Syringe) 3 ml IVFLUSH QSHIFT [facility] Last Admin: 11/30/23 08:00 Dose: 3 ml Documented By: AURA Labs 11/27/23 05:16 11/27/23 05:16 Assessment and Plan (1) Pneumonia: Status: Acute (2) Hypoxia: Status: Acute Plan This is a 83-year-old female with pertinent history of ESRD on hemodialysis //Fri, mood disorder, essential hypertension, mixed hyperlipidemia, COPD on home O2 prn, chronic back pain with chronic opioid use is admitted for treatment of acute hypoxemic failure and sepsis due to community acquired pneumonia. Acute hypoxemic respiratory failure and sepsis due to community-acquired pneumonia, making progress, Off 2 -continue Ceft +Azithro started 11/26, cultures negative, change to PO Ceftin tomorrow HypOkalemia--corrected ESRD on hemodialysis, Friday//Friday anemia of chronic disease, stable Essential hypertension: -continue home meds Mixed hyperlipidemia: statin COPD, no exacerbation, Continue home inhaler Chronic back pain with chronic opioid use moderate protein calory malnutrition--ensure DVT prophylaxis: Heparin Full code Need for inpatient: requires IV antibiotics for PNA, supplemental oxygen PT eval tomrrow and possible DC Quality Stroke Does the patient have a stroke diagnosis?: No VTE Prior VTE?: No VTE Risk Level:: Medical - moderate - high VTE Device Contraindication: Treatment Not Indicated VTE Drug Contraindication: N/A - Med Ordered
[2023-11-30 08:51] LABS: Hematocrit 30.2 % (37.0-47.0); Hemoglobin 9.7 g/dl (12.0-16.0); Mean Corpuscular HGB Conc 32.1 g/dl (31.0-35.0); Mean Corpuscular Volume 99.7 fL (80.0-98.0); Mean Platelet Volume 9.3 fL (9.4-12.3); Platelet Count 328 X10*3/uL (160-400); Red Blood Count 3.03 X10*6/uL (4.20-5.50); Red Cell Distribution Width 15.1 % (11.0-16.0); White Blood Count 9.8 X10*3/uL (4.8-10.8)
[2023-11-30 09:21] LABS: Anion Gap 18 (12-20); Blood Urea Nitrogen 27 mg/dL (9-16); Calcium 8.6 mg/dL (8.4-10.2); Carbon Dioxide 18 mmol/L (22-29); Chloride 101 mmol/L (96-108); Creatinine Clr Calc Pharmacy 4.9; Estimated Glomerular Filt Rate 7; Glucose Random 137 mg/dL (60-115); Potassium 3.8 mmol/L (3.3-5.1); Sodium 133 mmol/L (135-145)
[2023-11-30] MEDS: guaiFENesin 100 MG/5 ML LIQUID PO (11:40)
[2023-11-30] MEDS: Butalb/Acetamin/Caff 50/325/40 TABLET 1 TAB PO (11:40)
[2023-11-30] MEDS: Heparin Sodium,Porcine 5,000 UNIT/ML VIAL 5000 UNIT SUBCUT ×2 (11:41→21:38)
[2023-11-30] MEDS: Acetaminophen 325 MG TABLET 650 MG PO ×2 (16:07→21:55)
[2023-11-30] MEDS: Melatonin 3 MG TABLET 6 MG PO (21:38)
[2023-11-30] MEDS: lisinopriL 10 MG TABLET PO (21:38)
[2023-11-30] MEDS: Gabapentin 100 MG CAPSULE PO (21:38)
[2023-11-30] MEDS: Montelukast Sodium 10 MG TABLET PO (21:38)
[2023-11-30] MEDS: cefTRIAXone sodium 1 GM in 0.9 % Sodium Chloride 50 ML IV (21:49)
[2023-11-30] MEDS: Azithromycin 500 MG in 0.9 % Sodium Chloride 250 ML 125 MG IV (21:51)
[2023-12-01] VITALS (9 sets, daily range): BP systolic 100–119; BP diastolic 53–72; PULSE 92–106; RESP 16–20; TEMP 36.4–37.2; O2SAT 90–97
[2023-12-01] MEDS: Omeprazole 20 MG CAPSULE.DR PO (06:11)
[2023-12-01] MEDS: FLUoxetine HCl 20 MG CAPSULE 40 MG PO (07:57)
[2023-12-01] MEDS: Loratadine 10 MG TABLET PO (07:57)
[2023-12-01] MEDS: Atorvastatin Calcium 40 MG TABLET PO (07:57)
[2023-12-01] MEDS: Sevelamer Carbonate Tablet 800 MG TABLET PO ×3 (07:57→17:22)
[2023-12-01] MEDS: 0.9 % Sodium Chloride Flush 3 ML SYRINGE IVFLUSH ×3 (07:57→21:11)
[2023-12-01] MEDS: Ferrous Sulfate 324 MG TABLET.DR PO (07:57)
[2023-12-01] MEDS: Albuterol/Iprat 2.5/0.5MG 3 ML AMPUL.NEB INHALE ×3 (08:09→15:51)
--- NOTE | 2023-12-01 09:03 | P.PNIM_ITS ---
Subjective Subjective Date of Service: 12/02/23 Interval History: Patient complaint of not feeling well, coughing still, feels weak Physical Exam 2 Vital Signs: Vital Signs: Last Vital Signs Temp 98.9 F 12/01/23 07:10 Pulse 101 H 12/01/23 07:10 Resp 16 12/01/23 07:10 BP 113/67 12/01/23 07:10 Pulse Ox 90 L 12/01/23 07:10 O2 Del Method Room Air 12/01/23 07:10 O2 Flow Rate 3.0 11/28/23 07:46 BMI result Body Mass Index 19.5 General appearance: A&0 x 3, frail-appearing, no acute distress Chest: Dialysis catheter right chest CVS: RRR, S1/S2, no murmurs Pulm: No accessory muscle use, rhonchi/rales throughout Neuro: No gross abnormality Pysch: appropriate behavior and affect Objective Data Active Medications Acetaminophen (Acetaminophen 325 Mg Tablet) 650 mg PO Q6H PRN PRN Reason: Pain, Mild (Pain Scale 1-3) Last Admin: 11/30/23 21:55 Dose: 650 mg Documented By: NESTOR Acetaminophen (Acetaminophen Supp 650 Mg Supp.Rect) 650 mg [place] Q6H PRN PRN Reason: Pain, Mild (Pain Scale 1-3) Acetaminophen/Butalbital/Caffeine (Butalb/Acetamin/Caff 50/325/40 Tablet) 1 tab PO Q12H PRN PRN Reason: Headache Last Admin: 11/30/23 11:40 Dose: 1 tab Documented By: AURA Albuterol Sulfate (Albuterol Sulfate 90 Mcg 8 Gm Inhaler) 2 puff INHALE Q6H PRN PRN Reason: Shortness Of Breath Albuterol/Ipratropium (Albuterol/Iprat 2.5/0.5mg 3 Ml Ampul.Neb) 3 ml INHALE RQ4H WHILE AWAKE [facility] Last Admin: 11/30/23 19:00 Dose: 3 ml Documented By: JAIRO Albuterol/Ipratropium (Albuterol/Iprat 2.5/0.5mg 3 Ml Ampul.Neb) 3 ml INHALE Q4H PRN PRN Reason: Wheezing Atorvastatin Calcium (Atorvastatin Calcium 40 Mg Tablet) 40 mg PO DAILY [facility] Last Admin: 12/01/23 07:57 Dose: 40 mg Documented By: ALLISON Calcium Carbonate (Calcium Carbonate 500 Mg Tablet) 500 mg PO TID PRN PRN Reason: Acid Reflux Ferrous Sulfate (Ferrous Sulfate 324 Mg Tablet.) 324 mg PO MOWEFR@0900 [facility] Last Admin: 12/01/23 07:57 Dose: 324 mg Documented By: ALLISON Fluoxetine HCl (Fluoxetine Hcl 20 Mg Capsule) 40 mg PO DAILY [facility] Last Admin: 12/01/23 07:57 Dose: 40 mg Documented By: ALLISON Gabapentin (Gabapentin 100 Mg Capsule) 100 mg PO BEDTIME [facility] Last Admin: 11/30/23 21:38 Dose: 100 mg Documented By: NESTOR Guaifenesin (Guaifenesin 100 Mg/5 Ml Liquid) 5 ml PO Q6H PRN PRN Reason: Cough Last Admin: 11/30/23 11:40 Dose: 5 ml Documented By: AURA Heparin Sodium (Porcine) (Heparin Sodium,Porcine 5,000 Unit/Ml Vial) 5,000 unit SUBCUT Q12H [facility] Last Admin: 11/30/23 21:38 Dose: 5,000 unit Documented By: NESTOR Ceftriaxone Sodium 1 gm/ (Sodium Chloride) 50 mls @ 100 mls/hr IV Q24H [facility] Last Infusion: 11/30/23 22:20 Dose: Infused Documented By: NESTOR Azithromycin 500 mg/ Sodium (Chloride) 250 mls @ 125 mls/hr IV Q24H [facility] Last Infusion: 11/30/23 23:53 Dose: Infused Documented By: NESTOR Lisinopril (Lisinopril 10 Mg Tablet) 10 mg PO BEDTIME [facility]; Protocol Last Admin: 11/30/23 21:38 Dose: 10 mg Documented By: NESTOR Loratadine (Loratadine 10 Mg Tablet) 10 mg PO DAILY [facility] Last Admin: 12/01/23 07:57 Dose: 10 mg Documented By: ALLISON Lorazepam (Lorazepam 0.5 Mg Tablet) 0.5 mg PO BID PRN PRN Reason: Anxiety Melatonin (Melatonin 3 Mg Tablet) 6 mg PO BEDTIME PRN PRN Reason: Insomnia Last Admin: 11/30/23 21:38 Dose: 6 mg Documented By: NESTOR Montelukast Sodium (Montelukast Sodium 10 Mg Tablet) 10 mg PO BEDTIME [facility] Last Admin: 11/30/23 21:38 Dose: 10 mg Documented By: NESTOR Omeprazole (Omeprazole 20 Mg Capsule.Dr) 20 mg PO DAILY@0630 [facility] Last Admin: 12/01/23 06:11 Dose: 20 mg Documented By: NESTOR Ondansetron HCl (Ondansetron Hcl 4 Mg/2 Ml Vial) 4 mg IVPUSH Q8H PRN PRN Reason: Nausea and Vomiting Last Admin: 11/27/23 08:00 Dose: 4 mg Documented By: DEBI Oxycodone HCl (Oxycodone Hcl Immed Release 5 Mg Tablet) 5 mg PO Q4H PRN PRN Reason: Pain, Moderate(Pain Scale 4-6) Last Admin: 11/30/23 21:56 Dose: 5 mg Documented By: NESTOR Senna (Sennosides 8.6 Mg Tablet) 17.2 mg PO DAILY PRN PRN Reason: Constipation Sevelamer Carbonate (Sevelamer Carbonate Tablet 800 Mg Tablet) 800 mg PO TIDWM [facility] Last Admin: 12/01/23 07:57 Dose: 800 mg Documented By: ALLISON Sodium Chloride (0.9 % Sodium Chloride Flush 3 Ml Syringe) 3 ml IVFLUSH QSHIFT [facility] Last Admin: 12/01/23 07:57 Dose: 3 ml Documented By: ALLISON Labs 11/30/23 08:39 11/30/23 08:39 Labs: Laboratory Results - last 24 hr 11/30/23 08:39 Anion Gap 18 Estim Creat Clear Calc 4.9 Estimated GFR 7 Random Glucose 137 H Calcium 8.6 D Assessment and Plan (1) Pneumonia: Status: Acute (2) Hypoxia: Status: Acute Plan This is a 83-year-old female with pertinent history of ESRD on hemodialysis //Fri, mood disorder, essential hypertension, mixed hyperlipidemia, COPD on home O2 prn, chronic back pain with chronic opioid use is admitted for treatment of acute hypoxemic failure and sepsis due to community acquired pneumonia. Acute hypoxemic respiratory failure and sepsis due to community-acquired pneumonia, making progress, Off O2 with marginal O2 sat -continue Ceft +Azithro started 11/26, cultures negative, change to PO Ceftin on 12/01 HypOkalemia--corrected ESRD on hemodialysis, Friday//Friday anemia of chronic disease, stable Essential hypertension: -continue home meds Mixed hyperlipidemia: statin COPD, no exacerbation, Continue home inhaler Chronic back pain with chronic opioid use moderate protein calory malnutrition--ensure DVT prophylaxis: Heparin Full code Need for inpatient: requires IV antibiotics for PNA, supplemental oxygen will reassess for dc after dialysis Quality Stroke Does the patient have a stroke diagnosis?: No VTE Prior VTE?: No VTE Risk Level:: Medical - moderate - high VTE Device Contraindication: Treatment Not Indicated VTE Drug Contraindication: N/A - Med Ordered
[2023-12-01] MEDS: cefuroxime axetiL 250 MG TABLET PO (09:52)
[2023-12-01] MEDS: Butalb/Acetamin/Caff 50/325/40 TABLET 1 TAB PO (11:26)
[2023-12-01] MEDS: Heparin Sodium,Porcine 5,000 UNIT/ML VIAL 5000 UNIT SUBCUT ×2 (11:27→21:05)
--- NOTE | 2023-12-01 11:36 | PC.NURSE ---
MD Urrutia made aware pt hypotensive at 103/53, HR 102, pt endorses headache Fioricet given, effectiveness pending.
--- NOTE | 2023-12-01 11:44 | MHC.CLN ---
F/U DIET=2 GRAM SODIUM. DOES NOT WANT ENSURE CLEAR. PROVIDED WITH GELATEIN BID (320 KCALS, 40 G PROTEIN) TO PROMOTE NUTRITIONAL INTAKE. SUPPLEMENT APPROPRIATE WITH DIALYSIS. NUTRITION DX NON SEVERE, MODERATE, MALNUTRITION IN THE CONTEXT OF CHRONIC ILLNESS. INTAKE VARIABLE, 0-100%. CONTINUE CURRENT DIET AND SUPPLEMENT.
--- NOTE | 2023-12-01 11:48 | P.PNNP_ITS ---
Subjective Subjective Date of Service: 12/02/23 Interval history: follow up on pna, germaine is feeling better Physical Exam 2 Vital Signs: Vital Signs: Last Vital Signs Temp 97.9 F 12/01/23 11:26 Pulse 102 H 12/01/23 11:26 Resp 18 12/01/23 11:26 BP 103/53 L 12/01/23 11:26 Pulse Ox 90 L 12/01/23 07:10 O2 Del Method Room Air 12/01/23 07:10 O2 Flow Rate 3.0 11/28/23 07:46 BMI result Body Mass Index 19.5 cvs; s1s2 Rs; cta ABd; soft Objective Data Labs 11/30/23 08:39 11/30/23 08:39 Microbiology Microbiology Results: Microbiology 11/27/23 00:25 Blood - Venous Blood Culture - Preliminary No growth after 48 hours. 11/27/23 00:20 Blood - Venous Blood Culture - Preliminary No growth after 48 hours. Procedures Date of Service Date of Service: 12/02/23 Assessment & Plan Assessment and plan (1) ESRD needing dialysis: Status: Acute Plan Plan 83-year-old female with pertinent history of ESRD on hemodialysis T/T/S, mood disorder, essential hypertension, mixed hyperlipidemia, COPD not on home oxygen, chronic back pain with chronic opioid use who presents to the emergency department for evaluation of cough and dyspnea. Found to have PNA. Nephrology consulted for ESRD management. ESRD on HD TTS HTN BP at target range Chronically, pt takes Lisinopril 10 mg oral daily at home Anemia Hb 10.5, at target range Bone metabolism On Sevelemer 800 mg oral TID with meals Recommendations Will HD per TTS schedule c/w lisinopril c/w sevelamer No epo for now Dose meds per HD Time Spent With Patient Time: Total time managing care of this patient today ____ minutes. Progress Note: Quality Stroke Does the patient have a stroke diagnosis?: No
[2023-12-01] MEDS: oxyCODONE HCl Immed Release 5 MG TABLET PO (11:59)
--- NOTE | 2023-12-01 12:17 | MHC.CM.PN ---
Addendum entered by Paulina Jones RN 12/01/23 15:44: PT recommending home w/ services. Patient already established with [facility]. Original Note: EMR reviewed. Per MD rounds patient is not medically cleared for dc at this time - potentially later today or tomorrow. PT eval is pending. CM will continue to follow.
[2023-12-01] MEDS: HYDROmorphone HCl 2 MG TABLET PO ×2 (17:22→21:03)
[2023-12-01] MEDS: lisinopriL 10 MG TABLET PO (21:03)
[2023-12-01] MEDS: Gabapentin 100 MG CAPSULE PO (21:03)
[2023-12-01] MEDS: Melatonin 3 MG TABLET 6 MG PO (21:03)
[2023-12-01] MEDS: Montelukast Sodium 10 MG TABLET PO (21:03)
[2023-12-02] VITALS (7 sets, daily range): BP systolic 108–129; BP diastolic 56–72; PULSE 87–100; RESP 14–18; TEMP 36–36.9; O2SAT 90–95
[2023-12-02] MEDS: Butalb/Acetamin/Caff 50/325/40 TABLET 1 TAB PO ×2 (03:31→21:11)
[2023-12-02] MEDS: Omeprazole 20 MG CAPSULE.DR PO (06:06)
[2023-12-02] MEDS: HYDROmorphone HCl 2 MG TABLET PO ×2 (10:57→15:31)
[2023-12-02] MEDS: Sevelamer Carbonate Tablet 800 MG TABLET PO ×2 (12:10→17:36)
[2023-12-02] MEDS: cefuroxime axetiL 250 MG TABLET PO (12:10)
[2023-12-02] MEDS: Heparin Sodium,Porcine 5,000 UNIT/ML VIAL 5000 UNIT SUBCUT ×2 (12:10→21:11)
[2023-12-02] MEDS: guaiFENesin 100 MG/5 ML LIQUID PO (15:33)
[2023-12-02] MEDS: 0.9 % Sodium Chloride Flush 3 ML SYRINGE IVFLUSH ×2 (15:35→21:11)
[2023-12-02] MEDS: Albuterol/Iprat 2.5/0.5MG 3 ML AMPUL.NEB INHALE (20:13)
[2023-12-02] MEDS: Gabapentin 100 MG CAPSULE PO (21:10)
[2023-12-02] MEDS: Montelukast Sodium 10 MG TABLET PO (21:10)
[2023-12-02] MEDS: lisinopriL 10 MG TABLET PO (21:11)
--- NOTE | 2023-12-02 22:36 | P.PNNP_ITS ---
Subjective Subjective Date of Service: 12/02/23 Interval history: Patient complaint of not feeling well, coughing still, feels weak Physical Exam 2 Vital Signs: Vital Signs: Last Vital Signs Temp 98.3 F 12/02/23 19:17 Pulse 98 12/02/23 20:13 Resp 16 12/02/23 20:13 BP 125/58 L 12/02/23 19:17 Pulse Ox 93 12/02/23 19:17 O2 Del Method Room Air 12/02/23 19:17 O2 Flow Rate 3.0 11/28/23 07:46 BMI result Body Mass Index 19.5 cvs; s1s2 Rs; cta ABd; soft Objective Data Labs 11/30/23 08:39 11/30/23 08:39 Microbiology Microbiology Results: Microbiology 11/27/23 00:25 Blood - Venous Blood Culture - Final No growth after 5 days. 11/27/23 00:20 Blood - Venous Blood Culture - Final No growth after 5 days. Procedures Date of Service Date of Service: 12/02/23 Assessment & Plan Assessment and plan (1) ESRD needing dialysis: Status: Acute Plan 83-year-old female with pertinent history of ESRD on hemodialysis T/T/S, mood disorder, essential hypertension, mixed hyperlipidemia, COPD not on home oxygen, chronic back pain with chronic opioid use who presents to the emergency department for evaluation of cough and dyspnea. Found to have PNA. Nephrology consulted for ESRD management. ESRD on HD TTS HTN BP at target range Chronically, pt takes Lisinopril 10 mg oral daily at home Anemia Hb 10.5, at target range Bone metabolism On Sevelemer 800 mg oral TID with meals Recommendations Will HD per TTS schedule c/w lisinopril c/w sevelamer No epo for now Dose meds per HD Time Spent With Patient Time: Total time managing care of this patient today ____ minutes. Progress Note: Quality Stroke Does the patient have a stroke diagnosis?: No
[2023-12-03] VITALS (9 sets, daily range): BP systolic 81–135; BP diastolic 50–64; PULSE 13–104; RESP 16–20; TEMP 36.6–37.3; O2SAT 92–98
[2023-12-03] MEDS: Acetaminophen 325 MG TABLET 650 MG PO ×2 (01:40→12:23)
[2023-12-03] MEDS: Omeprazole 20 MG CAPSULE.DR PO (06:31)
[2023-12-03] MEDS: Albuterol/Iprat 2.5/0.5MG 3 ML AMPUL.NEB INHALE ×4 (07:41→20:07)
[2023-12-03] MEDS: FLUoxetine HCl 20 MG CAPSULE 40 MG PO (08:31)
[2023-12-03] MEDS: Sevelamer Carbonate Tablet 800 MG TABLET PO ×3 (08:34→15:36)
[2023-12-03] MEDS: Atorvastatin Calcium 40 MG TABLET PO (08:35)
[2023-12-03] MEDS: cefuroxime axetiL 250 MG TABLET PO (08:35)
[2023-12-03] MEDS: Loratadine 10 MG TABLET PO (08:35)
[2023-12-03] MEDS: Ferrous Sulfate 324 MG TABLET.DR PO (08:35)
[2023-12-03] MEDS: 0.9 % Sodium Chloride Flush 3 ML SYRINGE IVFLUSH ×3 (08:35→19:55)
[2023-12-03] MEDS: Butalb/Acetamin/Caff 50/325/40 TABLET 1 TAB PO ×2 (08:42→22:24)
--- NOTE | 2023-12-03 11:44 | MHC.CLN ---
F/U DIET=2 GRAM SODIUM. RECEIVES GELATEIN BID (320 KCALS, 40 G PROTEIN) TO PROMOTE NUTRITIONAL INTAKE. SUPPLEMENT APPROPRIATE WITH DIALYSIS. VARIABLE INTAKE WITH MOST MEALS 50-100%. CONTINUES WITH HEMODIALYSIS. MONITOR FOR INTAKE.
[2023-12-03] MEDS: Heparin Sodium,Porcine 5,000 UNIT/ML VIAL 5000 UNIT SUBCUT ×2 (12:23→22:25)
--- NOTE | 2023-12-03 14:04 | MHC.CM.PN ---
EMR reviewed. Per MD rounds patient is not medically cleared for dc. No change to dc plan. CM will continue to follow.
--- NOTE | 2023-12-03 15:01 | HO.PM.IMPN ---
Subjective Subjective Date of Service: 12/03/23 Interval History: No acute issues overnight. Slowly improving Review of Systems Denies chest pain Denies shortness of breath Denies nausea vomiting diarrhea Denies fever chills Physical Exam Vital Signs: Vital Signs: Last Vital Signs Temp 98 F 12/03/23 07:27 Pulse 13 L 12/03/23 11:26 Resp 16 12/03/23 11:26 BP 135/63 12/03/23 07:27 Pulse Ox 93 12/03/23 07:27 O2 Del Method Room Air 12/03/23 07:27 O2 Flow Rate 3.0 11/28/23 07:46 BMI result Body Mass Index 19.5 Const: Other: Awake alert no acute distress Resp: Other: Clear to auscultation bilaterally no rales rhonchi or wheezes Cardio: Other: No S4; positive S1-S2; no S3 murmurs rubs or gallops GI: Other: Soft nontender nondistended normoactive bowel sounds Extrem: Other: No edema bilaterally Objective Data Active Medications Acetaminophen (Acetaminophen 325 Mg Tablet) 650 mg PO Q6H PRN PRN Reason: Pain, Mild (Pain Scale 1-3) Last Admin: 12/03/23 12:23 Dose: 650 mg Documented By: DANAY Acetaminophen (Acetaminophen Supp 650 Mg Supp.Rect) 650 mg [place] Q6H PRN PRN Reason: Pain, Mild (Pain Scale 1-3) Acetaminophen/Butalbital/Caffeine (Butalb/Acetamin/Caff 50/325/40 Tablet) 1 tab PO Q12H PRN PRN Reason: Headache Last Admin: 12/03/23 08:42 Dose: 1 tab Documented By: DANAY Albuterol Sulfate (Albuterol Sulfate 90 Mcg 8 Gm Inhaler) 2 puff INHALE Q6H PRN PRN Reason: Shortness Of Breath Albuterol/Ipratropium (Albuterol/Iprat 2.5/0.5mg 3 Ml Ampul.Neb) 3 ml INHALE RQ4H WHILE AWAKE [facility] Last Admin: 12/03/23 11:26 Dose: 3 ml Documented By: RADHA Albuterol/Ipratropium (Albuterol/Iprat 2.5/0.5mg 3 Ml Ampul.Neb) 3 ml INHALE Q4H PRN PRN Reason: Wheezing Atorvastatin Calcium (Atorvastatin Calcium 40 Mg Tablet) 40 mg PO DAILY [facility] Last Admin: 12/03/23 08:35 Dose: 40 mg Documented By: DANAY Calcium Carbonate (Calcium Carbonate 500 Mg Tablet) 500 mg PO TID PRN PRN Reason: Acid Reflux Cefuroxime Axetil (Cefuroxime Axetil 250 Mg Tablet) 250 mg PO Q24H [facility] Last Admin: 12/03/23 08:35 Dose: 250 mg Documented By: DANAY Ferrous Sulfate (Ferrous Sulfate 324 Mg Tablet.) 324 mg PO MOWEFR@0900 [facility] Last Admin: 12/03/23 08:35 Dose: 324 mg Documented By: DANAY Fluoxetine HCl (Fluoxetine Hcl 20 Mg Capsule) 40 mg PO DAILY [facility] Last Admin: 12/03/23 08:31 Dose: 40 mg Documented By: DANAY Gabapentin (Gabapentin 100 Mg Capsule) 100 mg PO BEDTIME [facility] Last Admin: 12/02/23 21:10 Dose: 100 mg Documented By: THOMAS Guaifenesin (Guaifenesin 100 Mg/5 Ml Liquid) 5 ml PO Q6H PRN PRN Reason: Cough Last Admin: 12/02/23 15:33 Dose: 5 ml Documented By: ALLISON Heparin Sodium (Porcine) (Heparin Sodium,Porcine 5,000 Unit/Ml Vial) 5,000 unit SUBCUT Q12H [facility] Last Admin: 12/03/23 12:23 Dose: 5,000 unit Documented By: DANAY Hydromorphone HCl (Hydromorphone Hcl 2 Mg Tablet) 2 mg PO Q4H PRN PRN Reason: Pain, Severe (Pain Scale 7-10) Last Admin: 12/02/23 15:31 Dose: 2 mg Documented By: ALLISON Lisinopril (Lisinopril 10 Mg Tablet) 10 mg PO BEDTIME [facility]; Protocol Last Admin: 12/02/23 21:11 Dose: 10 mg Documented By: THOMAS Loratadine (Loratadine 10 Mg Tablet) 10 mg PO DAILY [facility] Last Admin: 12/03/23 08:35 Dose: 10 mg Documented By: DANAY Melatonin (Melatonin 3 Mg Tablet) 6 mg PO BEDTIME PRN PRN Reason: Insomnia Last Admin: 12/01/23 21:03 Dose: 6 mg Documented By: NESTOR Montelukast Sodium (Montelukast Sodium 10 Mg Tablet) 10 mg PO BEDTIME [facility] Last Admin: 12/02/23 21:10 Dose: 10 mg Documented By: THOMAS Omeprazole (Omeprazole 20 Mg Capsule.) 20 mg PO DAILY@0630 [facility] Last Admin: 12/03/23 06:31 Dose: 20 mg Documented By: THOMAS Ondansetron HCl (Ondansetron Hcl 4 Mg/2 Ml Vial) 4 mg IVPUSH Q8H PRN PRN Reason: Nausea and Vomiting Last Admin: 11/27/23 08:00 Dose: 4 mg Documented By: STEVLEYDI Senna (Sennosides 8.6 Mg Tablet) 17.2 mg PO DAILY PRN PRN Reason: Constipation Sevelamer Carbonate (Sevelamer Carbonate Tablet 800 Mg Tablet) 800 mg PO TIDWM [facility] Last Admin: 12/03/23 12:23 Dose: 800 mg Documented By: DANAY Sodium Chloride (0.9 % Sodium Chloride Flush 3 Ml Syringe) 3 ml IVFLUSH QSHIFT [facility] Last Admin: 12/03/23 08:35 Dose: 3 ml Documented By: DANAY Labs 11/30/23 08:39 11/30/23 08:39 Assessment and Plan (1) Pneumonia: Status: Acute (2) ESRD needing dialysis: Status: Acute Plan This is a 83-year-old female with pertinent history of ESRD on hemodialysis T//Fri, mood disorder, essential hypertension, mixed hyperlipidemia, COPD on home O2 prn, chronic back pain with chronic opioid use is admitted for treatment of acute hypoxemic failure and sepsis due to community acquired pneumonia. 1.Acute hypoxemic respiratory failure/sepsis due to community-acquired pneumonia -CTX/Azithro (6) completed IV course -Ceftin 250 b.i.d. (3) -O2 p.r.n. sats less than 90% 2.ESRD on TTS -dialysis as per renal -follow renals/divalents 3.Essential hypertension -acceptable control on current therapies -adjust as indicated 2.COPD (exacerbated by 1) -continue current therapies as outlined Heparin Full code Requires ongoing hospitalization to complete dialysis a.m. Quality Stroke Does the patient have a stroke diagnosis?: No VTE Prior VTE?: No VTE Risk Level:: Medical - moderate - high VTE Device Contraindication: Treatment Not Indicated VTE Drug Contraindication: N/A - Med Ordered
[2023-12-03] MEDS: guaiFENesin 100 MG/5 ML LIQUID PO (15:36)
[2023-12-03] MEDS: HYDROmorphone HCl 2 MG TABLET PO ×2 (15:36→19:54)
[2023-12-03] MEDS: Gabapentin 100 MG CAPSULE PO (19:55)
[2023-12-03] MEDS: lisinopriL 10 MG TABLET PO (19:55)
--- NOTE | 2023-12-03 21:21 | P.PNNP_ITS ---
Subjective Subjective Date of Service: 12/03/23 Interval history: No acute issues overnight. Slowly improving Physical Exam 2 Vital Signs: Vital Signs: Last Vital Signs Temp 98.1 F 12/03/23 19:14 Pulse 98 12/03/23 20:07 Resp 18 12/03/23 20:07 BP 92/52 L 12/03/23 19:14 Pulse Ox 94 12/03/23 19:14 O2 Del Method Room Air 12/03/23 19:14 O2 Flow Rate 3.0 11/28/23 07:46 BMI result Body Mass Index 19.5 cvs; s1s2 Rs; cta? ABd; soft? Objective Data Labs 11/30/23 08:39 11/30/23 08:39 Microbiology Microbiology Results: Microbiology 11/27/23 00:25 Blood - Venous Blood Culture - Final No growth after 5 days. 11/27/23 00:20 Blood - Venous Blood Culture - Final No growth after 5 days. Procedures Date of Service Date of Service: 12/03/23 Assessment & Plan Assessment and plan (1) ESRD needing dialysis: Status: Acute Plan 83-year-old female with pertinent history of ESRD on hemodialysis T/T/S, mood disorder, essential hypertension, mixed hyperlipidemia, COPD not on home oxygen, chronic back pain with chronic opioid use who presents to the emergency department for evaluation of cough and dyspnea. Found to have PNA. Nephrology consulted for ESRD management. ESRD on HD TTS HTN BP at target range Chronically, pt takes Lisinopril 10 mg oral daily at home Anemia Hb 10.5, at target range Bone metabolism On Sevelemer 800 mg oral TID with meals Recommendations Will HD per TTS schedule c/w lisinopril c/w sevelamer No epo for now Dose meds per HD Time Spent With Patient Time: Total time managing care of this patient today ____ minutes. Progress Note: Quality Stroke Does the patient have a stroke diagnosis?: No
[2023-12-03] MEDS: Montelukast Sodium 10 MG TABLET PO (22:25)
[2023-12-04] MEDS: HYDROmorphone HCl 2 MG TABLET PO (00:40)
[2023-12-04 03:34] VITALS: BP 157/61; PULSE 96; RESP 18; TEMP 36.7; O2SAT 94
[2023-12-04] MEDS: Omeprazole 20 MG CAPSULE.DR PO (06:22)
[2023-12-04 08:00] VITALS: BP 147/64; PULSE 86; RESP 18; TEMP 36.1; O2SAT 99
[2023-12-04 08:01] VITALS: PULSE 101; RESP 16; O2SAT 91
[2023-12-04] MEDS: Albuterol/Iprat 2.5/0.5MG 3 ML AMPUL.NEB INHALE (08:01)
[2023-12-04] MEDS: Loratadine 10 MG TABLET PO (08:46)
[2023-12-04] MEDS: Sevelamer Carbonate Tablet 800 MG TABLET PO ×3 (08:46→17:12)
[2023-12-04] MEDS: Atorvastatin Calcium 40 MG TABLET PO (08:46)
[2023-12-04] MEDS: Sennosides 8.6 MG TABLET 17.2 MG PO (08:46)
[2023-12-04] MEDS: guaiFENesin 100 MG/5 ML LIQUID PO (08:46)
[2023-12-04] MEDS: Acetaminophen 325 MG TABLET 650 MG PO ×2 (08:46→23:38)
[2023-12-04] MEDS: FLUoxetine HCl 20 MG CAPSULE 40 MG PO (08:46)
[2023-12-04] MEDS: cefuroxime axetiL 250 MG TABLET PO (08:46)
[2023-12-04] MEDS: Butalb/Acetamin/Caff 50/325/40 TABLET 1 TAB PO (10:39)
--- NOTE | 2023-12-04 14:44 | P.PNIM_ITS ---
Subjective Subjective Date of Service: 12/04/23 Interval History: No acute issues overnight. Still mildly shortness of breath with any exertion Review of Systems Denies chest pain Denies shortness of breath Denies nausea vomiting diarrhea Denies fever chills Physical Exam 2 Vital Signs: Vital Signs: Last Vital Signs Temp 97 F 12/04/23 08:00 Pulse 101 H 12/04/23 08:01 Resp 16 12/04/23 08:01 BP 147/64 H 12/04/23 08:00 Pulse Ox 99 12/04/23 08:00 O2 Del Method Room Air 12/04/23 08:00 O2 Flow Rate 3.0 11/28/23 07:46 BMI result Body Mass Index 19.5 Const: Other: Awake alert no acute distress Resp: Other: Clear to auscultation bilaterally no rales rhonchi or wheezes Cardio: Other: No S4; positive S1-S2; no S3 murmurs rubs or gallops GI: Other: Soft nontender nondistended normoactive bowel sounds Extrem: Other: No edema bilaterally Objective Data Active Medications Acetaminophen (Acetaminophen 325 Mg Tablet) 650 mg PO Q6H PRN PRN Reason: Pain, Mild (Pain Scale 1-3) Last Admin: 12/04/23 08:46 Dose: 650 mg Documented By: CHRISTIE Acetaminophen (Acetaminophen Supp 650 Mg Supp.Rect) 650 mg [place] Q6H PRN PRN Reason: Pain, Mild (Pain Scale 1-3) Acetaminophen/Butalbital/Caffeine (Butalb/Acetamin/Caff 50/325/40 Tablet) 1 tab PO Q12H PRN PRN Reason: Headache Last Admin: 12/04/23 10:39 Dose: 1 tab Documented By: CHRISTIE Albuterol Sulfate (Albuterol Sulfate 90 Mcg 8 Gm Inhaler) 2 puff INHALE Q6H PRN PRN Reason: Shortness Of Breath Atorvastatin Calcium (Atorvastatin Calcium 40 Mg Tablet) 40 mg PO DAILY [facility] Last Admin: 12/04/23 08:46 Dose: 40 mg Documented By: CHRISTIE Calcium Carbonate (Calcium Carbonate 500 Mg Tablet) 500 mg PO TID PRN PRN Reason: Acid Reflux Cefuroxime Axetil (Cefuroxime Axetil 250 Mg Tablet) 250 mg PO Q24H [facility] Last Admin: 12/04/23 08:46 Dose: 250 mg Documented By: CHRISTIE Ferrous Sulfate (Ferrous Sulfate 324 Mg Tablet.) 324 mg PO MOWEFR@0900 [facility] Last Admin: 12/03/23 08:35 Dose: 324 mg Documented By: DANAY Fluoxetine HCl (Fluoxetine Hcl 20 Mg Capsule) 40 mg PO DAILY [facility] Last Admin: 12/04/23 08:46 Dose: 40 mg Documented By: CHRISTIE Gabapentin (Gabapentin 100 Mg Capsule) 100 mg PO BEDTIME [facility] Last Admin: 12/03/23 19:55 Dose: 100 mg Documented By: THOMAS Guaifenesin (Guaifenesin 100 Mg/5 Ml Liquid) 5 ml PO Q6H PRN PRN Reason: Cough Last Admin: 12/04/23 08:46 Dose: 5 ml Documented By: CHRISTIE Heparin Sodium (Porcine) (Heparin Sodium,Porcine 5,000 Unit/Ml Vial) 5,000 unit SUBCUT Q12H [facility] Last Admin: 12/04/23 10:18 Dose: Not Given Documented By: CHRISTIE Non-Admin Reason: Off unit: Dialysis Hydromorphone HCl (Hydromorphone Hcl 2 Mg Tablet) 2 mg PO Q4H PRN PRN Reason: Pain, Severe (Pain Scale 7-10) Last Admin: 12/04/23 00:40 Dose: 2 mg Documented By: THOMAS Lisinopril (Lisinopril 10 Mg Tablet) 10 mg PO BEDTIME [facility]; Protocol Last Admin: 12/03/23 19:55 Dose: 10 mg Documented By: THOMAS Loratadine (Loratadine 10 Mg Tablet) 10 mg PO DAILY [facility] Last Admin: 12/04/23 08:46 Dose: 10 mg Documented By: CHRISTIE Melatonin (Melatonin 3 Mg Tablet) 6 mg PO BEDTIME PRN PRN Reason: Insomnia Last Admin: 12/01/23 21:03 Dose: 6 mg Documented By: NESTOR Montelukast Sodium (Montelukast Sodium 10 Mg Tablet) 10 mg PO BEDTIME [facility] Last Admin: 12/03/23 22:25 Dose: 10 mg Documented By: THOMAS Omeprazole (Omeprazole 20 Mg Capsule.) 20 mg PO DAILY@0630 [facility] Last Admin: 12/04/23 06:22 Dose: 20 mg Documented By: THOMAS Ondansetron HCl (Ondansetron Hcl 4 Mg/2 Ml Vial) 4 mg IVPUSH Q8H PRN PRN Reason: Nausea and Vomiting Last Admin: 11/27/23 08:00 Dose: 4 mg Documented By: DEBI Senna (Sennosides 8.6 Mg Tablet) 17.2 mg PO DAILY PRN PRN Reason: Constipation Last Admin: 12/04/23 08:46 Dose: 17.2 mg Documented By: CHRISTIE Sevelamer Carbonate (Sevelamer Carbonate Tablet 800 Mg Tablet) 800 mg PO TIDWM [facility] Last Admin: 12/04/23 12:38 Dose: 800 mg Documented By: CHRISTIE Sodium Chloride (0.9 % Sodium Chloride Flush 3 Ml Syringe) 3 ml IVFLUSH QSHIFT [facility] Last Admin: 12/04/23 13:50 Dose: Not Given Documented By: CHRISTIE Non-Admin Reason: See Note Labs 11/30/23 08:39 11/30/23 08:39 Assessment and Plan (1) Hypoxia: Status: Acute (2) Pneumonia: Status: Acute (3) ESRD needing dialysis: Status: Acute Plan This is a 83-year-old female with pertinent history of ESRD on hemodialysis T//Fri, mood disorder, essential hypertension, mixed hyperlipidemia, COPD on home O2 prn, chronic back pain with chronic opioid use is admitted for treatment of acute hypoxemic failure and sepsis due to community acquired pneumonia. 1.Acute hypoxemic respiratory failure/sepsis due to community-acquired pneumonia -CTX/Azithro (6) completed IV course -Ceftin 250 b.i.d. (4) -O2 p.r.n. sats less than 90% 2.ESRD on TTS -dialysis as per renal -follow renals/divalents 3.Essential hypertension -acceptable control on current therapies -adjust as indicated 2.COPD (exacerbated by 1) -continue current therapies as outlined Heparin Full code Requires ongoing hospitalization to complete dialysis a.m. Quality Stroke Does the patient have a stroke diagnosis?: No VTE Prior VTE?: No VTE Risk Level:: Medical - moderate - high VTE Device Contraindication: Treatment Not Indicated VTE Drug Contraindication: N/A - Med Ordered
[2023-12-04 15:06] VITALS: BP 98/46; PULSE 115; RESP 18; TEMP 36.8; O2SAT 96
[2023-12-04 19:20] VITALS: BP 91/59; PULSE 101; RESP 20; TEMP 36.6; O2SAT 94
[2023-12-04] MEDS: Gabapentin 100 MG CAPSULE PO (20:58)
[2023-12-04] MEDS: Montelukast Sodium 10 MG TABLET PO (20:58)
--- NOTE | 2023-12-04 21:06 | P.PNNP_ITS ---
Subjective Subjective Date of Service: 12/04/23 Interval history: No acute issues overnight. Still mildly shortness of breath with any exertion Physical Exam 2 Vital Signs: Vital Signs: Last Vital Signs Temp 97.8 F 12/04/23 19:20 Pulse 101 H 12/04/23 19:20 Resp 20 12/04/23 19:20 BP 91/59 L 12/04/23 19:20 Pulse Ox 94 12/04/23 19:20 O2 Del Method Room Air 12/04/23 19:20 O2 Flow Rate 3.0 11/28/23 07:46 BMI result Body Mass Index 19.5 cvs; s1s2 Rs; cta? ABd; soft? Objective Data Labs 11/30/23 08:39 11/30/23 08:39 Microbiology Microbiology Results: Microbiology 11/27/23 00:25 Blood - Venous Blood Culture - Final No growth after 5 days. 11/27/23 00:20 Blood - Venous Blood Culture - Final No growth after 5 days. Procedures Date of Service Date of Service: 12/04/23 Assessment & Plan Assessment and plan (1) ESRD needing dialysis: Status: Acute (2) Pneumonia: Status: Acute Plan 83-year-old female with pertinent history of ESRD on hemodialysis T/T/S, mood disorder, essential hypertension, mixed hyperlipidemia, COPD not on home oxygen, chronic back pain with chronic opioid use who presents to the emergency department for evaluation of cough and dyspnea. Found to have PNA. Nephrology consulted for ESRD management. ESRD on HD TTS HTN BP at target range Chronically, pt takes Lisinopril 10 mg oral daily at home Anemia Hb 10.5, at target range Bone metabolism On Sevelemer 800 mg oral TID with meals Recommendations Will HD per TTS schedule c/w lisinopril c/w sevelamer No epo for now Dose meds per HD Time Spent With Patient Time: Total time managing care of this patient today ____ minutes. Progress Note: Quality Stroke Does the patient have a stroke diagnosis?: No
[2023-12-04] MEDS: 0.9 % Sodium Chloride Flush 3 ML SYRINGE IVFLUSH (21:20)
[2023-12-04] MEDS: Heparin Sodium,Porcine 5,000 UNIT/ML VIAL 5000 UNIT SUBCUT (22:57)
[2023-12-04 23:39] VITALS: BP 110/56; PULSE 104; RESP 18; TEMP 37.7; O2SAT 93
[2023-12-05 00:38] VITALS: TEMP 36.9
[2023-12-05 00:41] VITALS: TEMP 37
[2023-12-05] MEDS: Butalb/Acetamin/Caff 50/325/40 TABLET 1 TAB PO ×2 (00:54→09:09)
[2023-12-05] MEDS: Omeprazole 20 MG CAPSULE.DR PO (05:56)
[2023-12-05 06:00] LABS: MANUAL DIFF FLAG NO
[2023-12-05] MEDS: HYDROmorphone HCl 2 MG TABLET PO (06:01)
[2023-12-05] MEDS: guaiFENesin 100 MG/5 ML LIQUID PO (06:13)
[2023-12-05 06:17] LABS: Basophils Absolute Auto 0.1 X10*3/uL (0.0-0.2); Basophils Percent Auto 1.2 % (0-2); Eosinophils Absolute Auto 0.2 X10*3/uL (0.0-0.4); Eosinophils Percent Auto 2.1 % (0-4); Hematocrit 31.2 % (37.0-47.0); Imm Gran Abs Auto 0.17 X10*3/uL (0.00-0.03); Imm Gran Pct Auto 1.9 % (0.0-0.4); Lymphocytes Absolute Auto 2.1 X10*3/uL (1.2-4.9); Lymphocytes Percent Auto 23.8 % (20-40); Mean Corpuscular HGB Conc 32.1 g/dl (31.0-35.0); Mean Corpuscular Hemoglobin 31.6 pg (27.0-33.0); Mean Corpuscular Volume 98.7 fL (80.0-98.0); Mean Platelet Volume 9.5 fL (9.4-12.3); Monocytes Absolute Auto 0.5 X10*3/uL (0.1-1.2); Monocytes Percent Auto 5.8 % (2-11); Neutrophils Absolute Auto 5.8 x10*3/uL (2.0-8.3); Neutrophils Percent Auto 65.2 % (45-73); Platelet Count 369 X10*3/uL (160-400); Red Blood Count 3.16 X10*6/uL (4.20-5.50); Red Cell Distribution Width 14.7 % (11.0-16.0); White Blood Count 8.8 X10*3/uL (4.8-10.8)
[2023-12-05 06:37] LABS: Alanine Aminotransferase 23 U/L (0-31); Albumin Level 2.9 g/dL (3.5-5.0); Alkaline Phosphatase 120 U/L (39-117); Anion Gap 15 (12-20); Aspartate Amino Transferase 32 U/L (5-31); Bilirubin Total 0.3 mg/dL (0.0-1.0); Blood Urea Nitrogen 26 mg/dL (9-16); Calcium 8.4 mg/dL (8.4-10.2); Carbon Dioxide 27 mmol/L (22-29); Chloride 95 mmol/L (96-108); Creatinine Clr Calc Pharmacy 7.4; Estimated Glomerular Filt Rate 11; Glucose Fasting 79 mg/dL (60-99); Potassium 5.4 mmol/L (3.3-5.1); Sodium 132 mmol/L (135-145); Total Protein 7.1 g/dL (6.5-8.0)
[2023-12-05 08:00] VITALS: BP 103/53; PULSE 94; RESP 17; TEMP 36.3; O2SAT 94
[2023-12-05] MEDS: cefuroxime axetiL 250 MG TABLET PO (09:09)
[2023-12-05] MEDS: FLUoxetine HCl 20 MG CAPSULE 40 MG PO (09:09)
[2023-12-05] MEDS: Atorvastatin Calcium 40 MG TABLET PO (09:10)
[2023-12-05] MEDS: Sevelamer Carbonate Tablet 800 MG TABLET PO ×2 (09:10→12:39)
[2023-12-05] MEDS: Ferrous Sulfate 324 MG TABLET.DR PO (09:10)
[2023-12-05] MEDS: Loratadine 10 MG TABLET PO (09:10)
[2023-12-05] MEDS: 0.9 % Sodium Chloride Flush 3 ML SYRINGE IVFLUSH (09:12)
[2023-12-05 09:29] VITALS: BP 103/53; PULSE 94; O2SAT 94
--- NOTE | 2023-12-05 10:52 | MHC.CM.PN ---
DP: IMM DELIVERED PT HAS BEEN MEDICALLY CLEARED FOR DC HOME WITH RESUMPTION OF [facility] SERVICES. HCP/DAUGHTER NOTIFIED AND WILL BE IN TO P/U PT BETWEEN 1 AND 2 PM. MD/RN MADE AWARE. [facility] NOTIFIED OF TODAY'S DC. ARACELI HADDAD UPDATED ON TODAY'S DC AND REQUEST DC SUMMARY TO BE FAXED TO [phone] WHEN COMPLETE.
--- NOTE | 2023-12-05 11:59 | PM.DS ---
DS: Providers Provider Date of Service: 12/05/23 Date of admission: 11/26/23 22:34 Primary care physician: Fran Alegria MD Consults: 11/26/23 22:35 Consult to Nephrology Routine Consulting Provider: Zhou Hidalgo Reason for consultation: ESRD on HD DS: Diagnosis Discharge Diagnosis (1) ESRD needing dialysis: Status: Acute (2) Pneumonia: Status: Acute DS: Summary Hospital Course Hospital Course: 83-year-old female with pertinent history of ESRD on hemodialysis T/T/S, mood disorder, essential hypertension, mixed hyperlipidemia, COPD not on home oxygen, chronic back pain with chronic opioid use who presents to the emergency department for evaluation of cough and dyspnea. Patient states she started having intermittent productive cough that started 3 days prior to presentation. It has been progressive. No sick contacts. Patient also has been having dyspnea which is worse with exertion. States she feels sick and tired. She missed her dialysis session yesterday. Also complains of headache and nausea. No fever, chills, chest discomfort, palpitations, abdominal pain, changes in urinary or bowel habits. In the emergency department, patient was found to be septic and imaging concerning for pneumonia. Also requiring supplemental oxygen to maintain normal oxygen saturation Hospital course Patient was admitted to general medical floor on IV ceftriaxone azithromycin. She continued to improve over the course of her hospital stay and was subsequently switched to Ceftin p.o.. Her O2 was weaned and at this point in time she is medically acceptable for discharge home to complete a course of Ceftin Time Attestation Discharge coordination time: Greater than 30 minutes Quality: Safe Use of Opioids Does Pt have an Active Cancer Diagnosis on the Problem List?: No Quality: Stroke Does the patient have a stroke diagnosis?: No Physical Exam Vital Signs: Vital Signs: Last Vital Signs Temp 97.3 F 12/05/23 08:00 Pulse 94 12/05/23 09:29 Resp 17 12/05/23 08:00 BP 103/53 L 12/05/23 09:29 Pulse Ox 94 12/05/23 09:29 O2 Del Method Room Air 12/05/23 08:00 O2 Flow Rate 3.0 11/28/23 07:46 BMI result Body Mass Index 19.5 Const: Other: Awake alert no acute distress Resp: Other: Clear to auscultation bilaterally no rales rhonchi or wheezes Cardio: Other: No S4; positive S1-S2; no S3 murmurs rubs or gallops GI: Other: Soft nontender nondistended normoactive bowel sounds Extrem: Other: No edema bilaterally DS: Data Data Completed and Pending Completed studies during hospitalization [Text1]: Procedures Performance of Urinary Filtration, Intermittent, Less than 6 Hours Per Day (09/25/23) Reposition Right Tibia with Internal Fixation Device, Open Approach (07/31/20) Transfusion of Nonautologous Red Blood Cells into Peripheral Vein, Percutaneous Approach (12/09/22) Labs on day of discharge: Laboratory Results - last 24 hr 12/05/23 05:36 WBC 8.8 RBC 3.16 L Hgb 10.0 L Hct 31.2 L MCV 98.7 H MCH 31.6 MCHC 32.1 RDW 14.7 Plt Count 369 MPV 9.5 Immature Gran % (Auto) 1.9 H Neut % (Auto) 65.2 Lymph % (Auto) 23.8 [place] % (Auto) 5.8 Eos % (Auto) 2.1 Baso % (Auto) 1.2 Lymph # (Auto) 2.1 [place] # (Auto) 0.5 Eos # (Auto) 0.2 Baso # (Auto) 0.1 Abs Immat Gran (auto) 0.17 H Absolute Neuts (auto) 5.8 Absolute Nucleated RBC 0.000 Nucleated RBC % (auto) 0.0 Sodium 132 L Potassium 5.4 H D Chloride 95 L Carbon Dioxide 27 Anion Gap 15 BUN 26 H Creatinine 4.02 H* Estim Creat Clear Calc 7.4 Estimated GFR 11 Fasting Glucose 79 Calcium 8.4 Total Bilirubin 0.3 AST 32 H ALT 23 Alkaline Phosphatase 120 H Total Protein 7.1 Albumin 2.9 L Discharge Plan Discharge Anticipated Discharge Date/Time: 12/05/23 11:55 Patient Disposition: Home Health Service Discharge Diagnosis: Bilateral pneumonia Referrals: Moe GONZALEZ [Outside] - 3-5 Days ([facility] HOME SERVICES- A NURSE WILL CALL YOU TO SET UP FIRST VISIT) Fran Alegria MD [Primary Care Provider] - 1 Week Discharge Medications: New cefuroxime axetil 250 mg Tablet 250 mg PO Q24H Qty: 5 0RF Continued montelukast 10 mg tablet 10 mg PO BEDTIME albuterol sulfate [ProAir HFA] 90 mcg/actuation Hfa Aerosol Inhaler 2 puff INHALATION Q6H PRN (Reason: Shortness Of Breath) lorazepam 0.5 mg Tablet 0.5 mg PO BID PRN (Reason: Anxiety) pantoprazole 40 mg Tablet,Delayed Release (Dr/Ec) 40 mg PO DAILY fluoxetine 40 mg Capsule 40 mg PO QAM atorvastatin 40 mg tablet 40 mg PO DAILY cetirizine 10 mg Tablet 10 mg PO DAILY scuttfdaor-wapdeaaneksdv-fjup 50-325-40 mg tablet 1 tab PO Q12H PRN (Reason: Headache) oxycodone-acetaminophen 5-325 mg tablet 1 tab PO Q8H PRN (Reason: Pain, Moderate) Qty: 10 0RF lisinopril 10 mg tablet 10 mg PO BEDTIME diclofenac sodium 1 % gel 4 g topical TID sevelamer carbonate 800 mg tablet 800 mg PO TIDWM cholecalciferol (vitamin D3) 1,250 mcg (50,000 unit) Tablet 1,250 mcg PO QMONTH ferrous gluconate 324 MG tablet 324 mg PO MOWEFR@0900 sennosides [senna] 8.6 mg Tablet 17.2 mg PO DAILY PRN (Reason: Constipation) calcium carbonate 500 mg calcium (1,250 mg) Tablet 500 mg PO TID PRN (Reason: Acid Reflux) gabapentin 100 mg capsule 100 mg PO BEDTIME Discharge Orders: Discharge Order (Routine); Ordered 12/05/23 Ordered By: Rehan Landrum Diet: Advance to usual diet Activity on Discharge: As tolerated Stand Alone Forms: Patient Portal Discharge page Care Plan Goals: Continue all medicines as taken before hospital Health Concerns: Complete course of Ceftin as ordered Plan of Treatment: Continue with dialysis as scheduled. Follow-up with your PCP next available Assessment: See discharge summary
[2023-12-05] MEDS: Heparin Sodium,Porcine 5,000 UNIT/ML VIAL 5000 UNIT SUBCUT (12:39)
--- NOTE | 2023-12-05 14:47 | W.MHC.F2F ---
Service Date Service Date: 12/05/23 Encounter Date of encounter: 12/05/23 Encounter: Acute hospitalization Reasons for Services Signs and symptoms assessed: Respiratory status including saturation Reason for long term: medication management and teach disease management Reason for occupational therapy: home safety and mobility, therapeutic exercises and restore joint function Homebound: Leaving the home is medically contraindicated at this time without the asist of a device and/or another person due th the listed conditions above and below. Reason homebound: unsteady gait / fall risk and unable to drive Certification: Based on the above findings, I certify that this patient is confined to the home and needs intermittent long term care, physical therapy and/or speech therapy, or continues to need occupational therapy. The patient is under my care, and I have initiated the establishment of the plan of care. The patient will be followed by a physician who will periodically review the plan of care. Time Spent With Patient Time: Total time managing care of this patient today ____ minutes.
== END 2023-12-05 13:55 | disposition home health service (06) | DRG 871 ==
LOC: HO.ED 21:52 → HO.EDOVER 22:39 → HO.S3 11-27 10:30
PROVIDERS: Internal Medicine; Nurse Practitioner Family; Admitting Provider Student in an Organized Health Care Education/Training Program; Emergency Provider Student in an Organized Health Care Education/Training Program; PCP Internal Medicine; Visit Provider Hospitalist
DX: A41.9 Sepsis, unspecified organism (principal); J18.9 Pneumonia, unspecified organism; N18.6 End stage renal disease; J96.01 Acute respiratory failure with hypoxia; J44.0 Chronic obstructive pulmonary disease with (acute) lower respiratory infection; I12.0 Hypertensive chronic kidney disease with stage 5 chronic kidney disease or end stage renal disease; E44.0 Moderate protein-calorie malnutrition; Z68.1 Body mass index [BMI] 19.9 or less, adult; J44.1 Chronic obstructive pulmonary disease with (acute) exacerbation; I95.3 Hypotension of hemodialysis; D53.9 Nutritional anemia, unspecified; N25.0 Renal osteodystrophy; D63.1 Anemia in chronic kidney disease; E87.6 Hypokalemia; M54.9 Dorsalgia, unspecified; G89.29 Other chronic pain; E78.2 Mixed hyperlipidemia; Z23 Encounter for immunization; Z99.2 Dependence on renal dialysis; Z87.891 Personal history of nicotine dependence; Z79.899 Other long term (current) drug therapy
CPT/HCPCS: 36415; 70450; 71045; 71250; 74176; 80048; 80053; 83605; 83735; 83880; 84484; 85025; 85027; 85610; 85730; 87040; 87502; 87635; 87640; 87641; 90686; 90999; 93005; 94640; 97116; 97162; 99222; 99285; J0456; J0696; J1644; J2270; J2405

== ENCOUNTER → 2023-11-26 17:18 | Outpatient (BNV) | payer MEDICARE, SELFPAY | PROVIDERS: Admitting Provider Student in an Organized Health Care Education/Training Program; Emergency Provider Student in an Organized Health Care Education/Training Program; PCP Internal Medicine; Visit Provider Internal Medicine Cardiovascular Disease | DX: R94.31 Abnormal electrocardiogram [ECG] [EKG] (principal) | CPT/HCPCS: 93010 ==

== ENCOUNTER → 2023-11-26 22:34 | Outpatient (BNV) | payer MEDICARE, SELFPAY | PROVIDERS: Admitting Provider Student in an Organized Health Care Education/Training Program; Emergency Provider Student in an Organized Health Care Education/Training Program; PCP Internal Medicine; Visit Provider Student in an Organized Health Care Education/Training Program | DX: N18.6 End stage renal disease (principal); Z99.2 Dependence on renal dialysis; J18.9 Pneumonia, unspecified organism; J44.1 Chronic obstructive pulmonary disease with (acute) exacerbation; J96.01 Acute respiratory failure with hypoxia | CPT/HCPCS: 99222; 99232; 99233; 99239; G0180 ==

== ENCOUNTER 2023-12-19 12:42 | Outpatient (REF) | payer MEDICARE, SELFPAY ==
[2023-12-19 13:12] LABS: Appearance Urine Cloudy; Color Urine Yellow; Glucose Urine UA Negative (Negative); Leukocyte Esterase Urine Moderate (2+) (Negative); Nitrite Urine Negative (Negative); UMIC TRIGGER UA YES; Urine Blood Trace (Negative); Urine Ketones Trace mg/dL (Negative); Urine Protein 100 (2+) mg/dL (Neg-Trace)
[2023-12-19 13:23] LABS: Bacteria Urine 4+ (None Seen); Squamous Epithelial Cell Urine >20 /HPF (0-2); WBC Urine >50 /HPF (0-5)
== END 2023-12-19 12:43 | disposition home or self-care (01) ==
LOC: HO.LNP 12:42
PROVIDERS: Visit Provider Internal Medicine
DX: N39.0 Urinary tract infection, site not specified (principal)
CPT/HCPCS: 81001; 81003; 87086

== ENCOUNTER 2024-01-10 01:34 | Emergency (ER) | payer MEDICARE, SELFPAY ==
--- NOTE | ~2024-01-10 | XR_ITS ---
EXAMINATION: XR HIP, LEFT CLINICAL INFORMATION: Pain. COMPARISON: None available. TECHNIQUE: Two views of the left hip. FINDINGS: The bony structures are osteopenic. A right hip prosthesis is noted in place. There is mild left hip degenerative change with mild loss of joint space and subchondral sclerosis. No fracture is seen. The soft tissues are unremarkable. XR/XR hip LT w PEL1V IMPRESSION: Osteopenia and mild left hip degenerative change. No fracture.
[2024-01-10 01:44] VITALS: BP 116/88; BP 120/69; PULSE 90; PULSE 93; RESP 18; TEMP 37.1; O2SAT 100; O2SAT 97; BMI 15.2
--- NOTE | 2024-01-10 02:12 | PC.NURSE ---
pt biba from home reporting onset of bilateral knee pain, nausea, vomiting, lower left back pain and abdominal pain for 3 hours. upon arrival pt not currently vomiting, pt reports normal po intake, pt reports normal BM and and normal urination.
--- NOTE | 2024-01-10 04:10 | PC.NURSE ---
pt at this time shouting at this RN, radiological technician vince in room at this time and aware of pt situation.
[2024-01-10 04:53] LABS: Basophils Absolute Auto 0.1 X10*3/uL (0.0-0.2); Basophils Percent Auto 1.2 % (0-2); Eosinophils Absolute Auto 0.2 X10*3/uL (0.0-0.4); Eosinophils Percent Auto 3.1 % (0-4); Hematocrit 28.3 % (37.0-47.0); Imm Gran Abs Auto 0.02 X10*3/uL (0.00-0.03); Imm Gran Pct Auto 0.3 % (0.0-0.4); Lymphocytes Absolute Auto 1.9 X10*3/uL (1.2-4.9); Lymphocytes Percent Auto 33.7 % (20-40); MANUAL DIFF FLAG NO; Mean Corpuscular HGB Conc 31.8 g/dl (31.0-35.0); Mean Corpuscular Hemoglobin 31.8 pg (27.0-33.0); Mean Platelet Volume 10.1 fL (9.4-12.3); Monocytes Absolute Auto 0.4 X10*3/uL (0.1-1.2); Monocytes Percent Auto 7.7 % (2-11); NRBC Pct Auto 0.3 /100WBC (0.0-0.2); Neutrophils Absolute Auto 3.1 x10*3/uL (2.0-8.3); Platelet Count 265 X10*3/uL (160-400); Red Blood Count 2.83 X10*6/uL (4.20-5.50); Red Cell Distribution Width 15.4 % (11.0-16.0); White Blood Count 5.7 X10*3/uL (4.8-10.8)
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
[2024-01-10 05:08] LABS: Anion Gap 16 (12-20); Blood Urea Nitrogen 43 mg/dL (9-16); Calcium 9.4 mg/dL (8.4-10.2); Carbon Dioxide 28 mmol/L (22-29); Chloride 101 mmol/L (96-108); Creatinine Clr Calc Pharmacy 4.5; Estimated Glomerular Filt Rate 6; Glucose Random 90 mg/dL (60-115); Potassium 4.2 mmol/L (3.3-5.1); Sodium 141 mmol/L (135-145)
--- NOTE | 2024-01-10 05:59 | MHC.EDTECH ---
CALL OUT TO MARGARITA AT 0556 TO BOOK TRANSPORT FOR PT TO DIALYSIS, ESTIMATES ETA GIVEN WAS [phone]
[2024-01-10 06:03] VITALS: BP 171/91; PULSE 81; RESP 15; TEMP 37.2; O2SAT 98
[2024-01-10] MEDS: oxyCODONE HCl Immed Release 5 MG TABLET PO (06:03)
--- NOTE | 2024-01-10 06:08 | PC.NURSE ---
pt medicated per mar for 8/10 general body pain. pt tolerated well with water.
[2024-01-10 06:19] LABS: Amphetamine Screen Urine Not Detected (Not Detect); Barbiturates, Urine POSITIVE (Not Detect); Benzodiazepines Screen Urine Not Detected (Not Detect); Cannabinoid Screen Urine Not Detected (Not Detect); Cocaine Screen Urine Not Detected (Not Detect); Fentanyl, urine Not Detected (Not Detect); Opiate Screen Urine Not Detected (Not Detect); Phencyclidine Screen Urine Not Detected (Not Detect)
--- NOTE | 2024-01-10 06:31 | PC.NURSE ---
per phone conversation with pt dialysis nurse Poppy crowe([facility] [place]) has requested a tox screen on the pt due to for about 6 months Poppy has suspected that the pt is not getting her medications. Tox screen came back negative for opiates which should be positive due to the pt is on ativan and oxycodone. Dr Muhammad made aware.
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
[2024-01-10 07:32] VITALS: BP 165/92; PULSE 84; RESP 20; TEMP 36.4; O2SAT 94
== END 2024-01-10 07:33 | disposition home or self-care (01) ==
PROVIDERS: Emergency Provider Emergency Medicine; PCP Internal Medicine
DX: M54.32 Sciatica, left side (principal); R41.0 Disorientation, unspecified; Z79.899 Other long term (current) drug therapy; I13.2 Hypertensive heart and chronic kidney disease with heart failure and with stage 5 chronic kidney disease, or end stage renal disease; N18.6 End stage renal disease; I50.9 Heart failure, unspecified; D63.1 Anemia in chronic kidney disease; Z99.2 Dependence on renal dialysis
CPT/HCPCS: 36415; 73502; 80048; 80307; 85025; 99283; 99284

== ENCOUNTER 2024-01-19 21:20 | Emergency (ER) | payer MEDICARE, SELFPAY ==
[2024-01-19 21:30] VITALS: BP 159/83; PULSE 85; RESP 18; TEMP 36.7; O2SAT 96
[2024-01-19 21:38] VITALS: BP 139/85; BP 190/120; PULSE 85; PULSE 87; RESP 15; TEMP 36.7; O2SAT 96; O2SAT 98; BMI 33.3
--- NOTE | 2024-01-19 21:44 | PC.NURSE ---
pt biba from home, per daughter, pt noted to have x30min nose bleed uncontrolled. upon arrival, pt noted to have no active bleeding. pt reports bilateral knee pain 8/10 at this time. pt has hx of dementia, pt alert to self and place, pt unable to state year. pt has previous fistula in the right arm, attends dialysis friday, and saturdays.
[2024-01-19 22:32] VITALS: BP 144/87; PULSE 83; RESP 16; TEMP 36.6; O2SAT 95
[2024-01-19 22:41] LABS: Basophils Absolute Auto 0.1 X10*3/uL (0.0-0.2); Basophils Percent Auto 1.2 % (0-2); Eosinophils Absolute Auto 0.2 X10*3/uL (0.0-0.4); Eosinophils Percent Auto 3.1 % (0-4); Hematocrit 32.4 % (37.0-47.0); Hemoglobin 10.4 g/dl (12.0-16.0); Imm Gran Abs Auto 0.15 X10*3/uL (0.00-0.03); Lymphocytes Absolute Auto 2.3 X10*3/uL (1.2-4.9); Lymphocytes Percent Auto 31.4 % (20-40); MANUAL DIFF FLAG NO; Mean Corpuscular HGB Conc 32.1 g/dl (31.0-35.0); Mean Corpuscular Hemoglobin 31.7 pg (27.0-33.0); Mean Corpuscular Volume 98.8 fL (80.0-98.0); Mean Platelet Volume 9.9 fL (9.4-12.3); Monocytes Absolute Auto 0.5 X10*3/uL (0.1-1.2); Monocytes Percent Auto 6.6 % (2-11); Neutrophils Absolute Auto 4.2 x10*3/uL (2.0-8.3); Neutrophils Percent Auto 55.7 % (45-73); Platelet Count 407 X10*3/uL (160-400); Red Blood Count 3.28 X10*6/uL (4.20-5.50); Red Cell Distribution Width 14.7 % (11.0-16.0); White Blood Count 7.5 X10*3/uL (4.8-10.8)
[2024-01-19 23:03] LABS: Alanine Aminotransferase 88 U/L (0-31); Albumin Level 3.3 g/dL (3.5-5.0); Alkaline Phosphatase 205 U/L (39-117); Anion Gap 19 (12-20); Aspartate Amino Transferase 91 U/L (5-31); Bilirubin Total 0.4 mg/dL (0.0-1.0); Blood Urea Nitrogen 64 mg/dL (9-16); Calcium 9.5 mg/dL (8.4-10.2); Carbon Dioxide 25 mmol/L (22-29); Chloride 98 mmol/L (96-108); Creatinine Clr Calc Pharmacy 5.9; Estimated Glomerular Filt Rate 5; Glucose Random 81 mg/dL (60-115); Potassium 4.6 mmol/L (3.3-5.1); Sodium 137 mmol/L (135-145); Total Protein 7.6 g/dL (6.5-8.0)
--- NOTE | 2024-01-19 23:24 | ED_ITS ---
History of Present Illness General Chief Complaint: Epistaxis Stated Complaint: epistaxis Time Seen by Provider: 01/19/24 21:34 Source: patient, family and EMS Mode of arrival: EMS History of Present Illness HPI Narrative: 83-year-old female who arrives via EMS from home and states that she had a nosebleed while at home, she lives with her daughter, patient is also a noted dialysis patient and has kept all of her dialysis appointments the last of which was on Friday. Patient has no other complaints at this time. Additional information obtained from the daughter states that patient has taken all of her home medications for the day. Related Data Home Medications Medication Instructions Recorded Confirmed montelukast 10 mg tablet 10 mg PO BEDTIME 07/28/20 11/27/23 albuterol sulfate 90 mcg/actuation 2 puff inhalation Q6H PRN 08/01/20 11/27/23 aerosol inhaler (ProAir HFA) Shortness Of Breath fluoxetine 40 mg capsule 40 mg PO QAM 08/01/20 11/27/23 lorazepam 0.5 mg tablet 0.5 mg PO BID PRN Anxiety 08/01/20 11/27/23 pantoprazole 40 mg tablet,delayed 40 mg PO DAILY 08/01/20 11/27/23 release atorvastatin 40 mg tablet 40 mg PO DAILY 06/19/22 11/27/23 cetirizine 10 mg tablet 10 mg PO DAILY 06/19/22 11/27/23 idiyhvekoh-yqnbtbdarcspe-jzwrokwn 1 tab PO Q12H PRN Headache 12/09/22 11/27/23 50 mg-325 mg-40 mg tablet diclofenac sodium 1 % topical gel 4 g topical TID 08/22/23 11/27/23 lisinopril 10 mg tablet 10 mg PO BEDTIME 08/22/23 11/27/23 calcium carbonate 500 mg calcium 500 mg PO TID PRN Acid Reflux 09/25/23 11/27/23 (1,250 mg) tablet cholecalciferol (vitamin D3) 1,250 1,250 mcg PO QMONTH 09/25/23 11/27/23 mcg (50,000 unit) tablet ferrous gluconate 324 mg PO MOWEFR@0900 09/25/23 11/27/23 sennosides 8.6 mg tablet (senna) 17.2 mg PO DAILY PRN Constipation 09/25/23 11/27/23 sevelamer carbonate 800 mg tablet 800 mg PO TIDWM 09/25/23 11/27/23 gabapentin 100 mg capsule 100 mg PO BEDTIME 11/27/23 11/27/23 Previous Rx's Medication Instructions Recorded oxycodone-acetaminophen 5 mg-325 1 tab PO Q8H PRN Pain, Moderate 12/13/22 mg tablet #10 tabs cefuroxime axetil 250 mg tablet 250 mg PO Q24H #5 tabs 12/05/23 Allergies Allergy/AdvReac Type Severity Reaction Status Date / Time codeine [Codeine] Allergy Mild RASH Verified 01/19/24 21:42 Sulfa (Sulfonamide Allergy Mild HIVES Verified 01/19/24 21:42 Antibiotics) [Sulfa (Sulfonamides)] ibuprofen [From Motrin] AdvReac Mild STOMACH Verified 01/19/24 21:42 UPSET, Rectal bleeding Review of Systems 2 Review of Systems: Pertinent positives and negatives as stated in [facility]PI [facility] Past Medical History Source: nursing notes reviewed Medical History ESRD needing dialysis Chronic kidney disease requiring chronic dialysis Compression fx, lumbar spine ESRD (end stage renal disease) CKD (chronic kidney disease) stage 4, GFR 15-29 ml/min Metabolic acidosis Hyperkalemia FLORECITA (acute kidney injury) Anemia CHF (congestive heart failure) Headache Hypertensive urgency CKD (chronic kidney disease) Anxiety and depression Hiatal hernia Chronic anemia Hyperlipidemia Back pain Osteoarthritis Anemia COPD (chronic obstructive pulmonary disease) GERD (gastroesophageal reflux disease) Asthma Hypertension Surgical History Hx of breast biopsy History of esophagogastroduodenoscopy (EGD) Hx of colonoscopy History of left-sided carotid endarterectomy History of total right hip arthroplasty History of open reduction and internal fixation (ORIF) procedure History of cholecystectomy H/O of rectopexy History of bowel resection H/O: hysterectomy Social History Social History Household Members: Children Household Members Other:: DAUGHTER LAURECE Housing: Apartment Do you presently have visiting nurse or other home services: Yes Unable to assess alcohol history related to: Unknown Alcohol intake: current Alcohol intake frequency: holidays/special occasions only Comment: tylenol 325mg po given & warm blanket, layed on left side Patient Tobacco Use Status: Former Tobacco user Quit Date: 12 YEARS AGO Tobacco use type: Cigarette Years Smoked: 20 Smoked in Last 30 Days: No e-Cigarette/Vaping Use: Never Used Second Hand Smoke Exposure: No Use of substances other than those prescribed or required for medical reasons: No Substance Use Type: Marijuana Advance Directives: Yes Advance Directives on File: Yes Advance Directives Date on File: 09/04/20 service: No Current occupational status: retired Physical Exam 2 Vital Signs: Vital Signs: Last Vital Signs Temp 97.0 F 01/20/24 00:00 Pulse 76 01/20/24 00:00 Resp 16 01/20/24 00:00 BP 167/104 H 01/20/24 00:00 Pulse Ox 95 01/20/24 00:00 O2 Del Method Room Air 01/20/24 00:00 BMI result Body Mass Index 33.3 VITAL SIGNS: Reviewed. GENERAL: Well developed, well nourished, in no acute distress. HEAD: Normocephalic/atraumatic EYES: PERRLA, EOMI EARS: Ext canals without abnormality NOSE: Nares patent bilateral, no epistaxis noted, no stigmata of bleeding OROPHARYNX: no oral lesions noted, posterior pharynx clear NECK: Supple, no adenopathy LUNGS: Normal breath sounds. No adventitious sounds or accessory muscle use. SpO2<95>; CHEST WALL: There is a dialysis catheter at the right upper chest wall with no surrounding erythema or induration. CARDIOVASCULAR: Regular rate and rhythm without noted murmurs ABDOMEN: Soft, non-tender, non-distended with bowel sounds. MUSCULOSKELETAL: No tenderness, deformities, or effusions noted on gross inspection. EXTREMITIES: No cyanosis, clubbing or edema. SKIN: Inspection of the skin reveals no rashes NEUROLOGIC: Alert and oriented x 2. Strength and sensation to light touch were grossly intact x 4. Medical Decision Making Medical Decision Making MDM Narrative: 83-year-old female with history and clinical presentation of atraumatic epistaxis that has completely resolved, as patient is a dialysis recipient will obtain basic labs, daughter was already notified that patient's bloody nose has completely resolved and that she will likely be returning home. Reviewed all investigations and hematologic indices are chronically stable without leukocytosis there is a chronically stable macrocytic anemia slight elevation of platelets. Chemistry indices are consistent with patient's underlying end-stage renal disease with dependency on dialysis, she is scheduled for repeat dialysis tomorrow, otherwise electrolytes and transaminases are chronically stable. Patient has no issue with any further epistaxis and is discharged home. Differential Diagnosis Differential Diagnoses: The differential diagnosis associated with the presentation includes Please see the discussion above Admission/Observation Consideration of admission/observation: Escalation of care including admission/observation considered Please see the discussion above Lab Data MDM Lab Attestation statement: I reviewed the patient's lab results. Please see the discussion above 01/19/24 22:36 01/19/24 22:36 Labs: Lab Results 01/19/24 Range/Units 22:36 WBC 7.5 (4.8-10.8) X10*3/uL RBC 3.28 L (4.20-5.50) X10*6/uL Hgb 10.4 L (12.0-16.0) g/dl Hct 32.4 L (37.0-47.0) % MCV 98.8 H (80.0-98.0) fL MCH 31.7 (27.0-33.0) pg MCHC 32.1 (31.0-35.0) g/dl RDW 14.7 (11.0-16.0) % Plt Count 407 H D (160-400) X10*3/uL MPV 9.9 (9.4-12.3) fL Immature Gran % (Auto) 2.0 H (0.0-0.4) % Neut % (Auto) 55.7 (45-73) % Lymph % (Auto) 31.4 (20-40) % Dunn % (Auto) 6.6 (2-11) % Eos % (Auto) 3.1 (0-4) % Baso % (Auto) 1.2 (0-2) % Lymph # (Auto) 2.3 (1.2-4.9) X10*3/uL Dunn # (Auto) 0.5 (0.1-1.2) X10*3/uL Eos # (Auto) 0.2 (0.0-0.4) X10*3/uL Baso # (Auto) 0.1 (0.0-0.2) X10*3/uL Abs Immat Gran (auto) 0.15 H (0.00-0.03) X10*3/uL Absolute Neuts (auto) 4.2 (2.0-8.3) x10*3/uL Absolute Nucleated RBC 0.000 (0.0-0.012) X10*3/uL Nucleated RBC % (auto) 0.0 (0.0-0.2) /100WBC Sodium 137 (135-145) mmol/L Potassium 4.6 (3.3-5.1) mmol/L Chloride 98 (96-108) mmol/L Carbon Dioxide 25 (22-29) mmol/L Anion Gap 19 (12-20) BUN 64 H (9-16) mg/dL Creatinine 8.41 H* (0.5-1.4) mg/dL Estim Creat Clear Calc 5.9 Estimated GFR 5 Random Glucose 81 (60-115) mg/dL Calcium 9.5 (8.4-10.2) mg/dL Total Bilirubin 0.4 (0.0-1.0) mg/dL AST 91 H (5-31) U/L ALT 88 H (0-31) U/L Alkaline Phosphatase 205 H (39-117) U/L Total Protein 7.6 (6.5-8.0) g/dL Albumin 3.3 L (3.5-5.0) g/dL External Record Review External record reviewed: Outpatient record, Prior outpatient labs and Prior outpatient radiology Chronic Conditions ESRD Critical Care Time Critical Care Time Critical Care Time: Yes Total Critical Care Time: 30 Attestation: I personally attest to this time spent taking care of the patient. Discharge Plan Discharge Clinical Impression: Epistaxis Patient Disposition: Home, Self-Care Instructions: Nosebleed (ED) Additional Instructions: 1. Resume all home medications as prescribed. 2. Continue with dialysis tomorrow as scheduled. 3. Follow-up with primary care doctor. Return to the ER for any worsening symptoms. Prescriptions: No Action montelukast 10 mg tablet 10 mg PO BEDTIME albuterol sulfate [ProAir HFA] 90 mcg/actuation Hfa Aerosol Inhaler 2 puff INHALATION Q6H PRN (Reason: Shortness Of Breath) lorazepam 0.5 mg Tablet 0.5 mg PO BID PRN (Reason: Anxiety) pantoprazole 40 mg Tablet,Delayed Release (Dr/Ec) 40 mg PO DAILY fluoxetine 40 mg Capsule 40 mg PO QAM atorvastatin 40 mg tablet 40 mg PO DAILY cetirizine 10 mg Tablet 10 mg PO DAILY uwqhxpslqx-ngunxksicwwec-niae 50-325-40 mg tablet 1 tab PO Q12H PRN (Reason: Headache) oxycodone-acetaminophen 5-325 mg tablet 1 tab PO Q8H PRN (Reason: Pain, Moderate) Qty: 10 0RF lisinopril 10 mg tablet 10 mg PO BEDTIME diclofenac sodium 1 % gel 4 g topical TID sevelamer carbonate 800 mg tablet 800 mg PO TIDWM cholecalciferol (vitamin D3) 1,250 mcg (50,000 unit) Tablet 1,250 mcg PO QMONTH ferrous gluconate 324 MG tablet 324 mg PO MOWEFR@0900 sennosides [senna] 8.6 mg Tablet 17.2 mg PO DAILY PRN (Reason: Constipation) calcium carbonate 500 mg calcium (1,250 mg) Tablet 500 mg PO TID PRN (Reason: Acid Reflux) gabapentin 100 mg capsule 100 mg PO BEDTIME cefuroxime axetil 250 mg Tablet 250 mg PO Q24H Qty: 5 0RF
[2024-01-20] VITALS: BP 167/104; PULSE 76; RESP 16; TEMP 36.1; O2SAT 95
--- NOTE | 2024-01-20 01:00 | PC.NURSE ---
this rn contacted pt daughter for transport.
[2024-01-20 01:22] VITALS: BP 171/97; PULSE 84; RESP 16; TEMP 36.9; O2SAT 97
--- NOTE | 2024-01-20 01:31 | PC.NURSE ---
Daughter arrives to bedside, extremely upset that patient was discharged. Daughter angry, states her moms BP is high and this hospital sucks and they're never coming back!!!! This RN explaining that pt was provided with a full medical eval by MD and discharged by MD. This RN offering to have MD come discuss plan of care with daughter, daughter refusing. Daughter states put my mother in this wheelchair so we can get out of here right now!!!! Pt assisted up and into a wheelchair by information technology specialist. Daughter provided with DC paperwork and left the ED.
[2024-01-20 01:36] VITALS: BP 171/97; PULSE 84; RESP 20; TEMP 36.9; O2SAT 97
== END 2024-01-20 01:38 | disposition home or self-care (01) ==
PROVIDERS: Emergency Provider Student in an Organized Health Care Education/Training Program
DX: R04.0 Epistaxis (principal); I12.0 Hypertensive chronic kidney disease with stage 5 chronic kidney disease or end stage renal disease; N18.6 End stage renal disease; Z99.2 Dependence on renal dialysis
CPT/HCPCS: 36415; 80053; 85025; 99283; 99284

== ENCOUNTER 2024-01-27 06:57 | Emergency (ER) | payer MEDICARE, SELFPAY ==
--- NOTE | ~2024-01-27 | XR_ITS ---
EXAMINATION: XR CHEST CLINICAL INFORMATION: Bradycardia COMPARISON: 11/26/2023 TECHNIQUE: Frontal view of the chest was obtained. FINDINGS: Heart size normal. Again noted is a tunneled right IJ hemodialysis catheter with tip in good position in the right atrium. No infiltrates, effusions or lung masses are seen. Patchy density seen at the lung bases previously are improved. Surgical clips right arm related to presumably dialysis access. XR/XR chest 1V IMPRESSION: No acute intrathoracic disease.
[2024-01-27 07:08] VITALS: BP 159/87; PULSE 121; O2SAT 95
[2024-01-27 07:12] VITALS: BP 183/109; PULSE 83; RESP 14; TEMP 37.2; O2SAT 95
[2024-01-27 07:14] VITALS: BP 183/109; PULSE 81; RESP 15; TEMP 37.2; O2SAT 98; BMI 13.7
--- NOTE | 2024-01-27 07:14 | ECG_ITS ---
Test Reason : chest pain Blood Pressure : / mmHG Vent. Rate : 078 BPM Atrial Rate : 078 BPM P-R Int : 144 ms QRS Dur : 070 ms QT Int : 408 ms P-R-T Axes : 074 012 038 degrees QTc Int : 465 ms Normal sinus rhythm Normal ECG When compared with ECG of 26-NOV-2023 19:27, QT has lengthened Referred By: Generic ED Physician Electronically Signed By:YONI GUAMAN MD
[2024-01-27 07:47] LABS: MANUAL DIFF FLAG NO
[2024-01-27 07:49] LABS: Basophils Absolute Auto 0.1 X10*3/uL (0.0-0.2); Basophils Percent Auto 1.4 % (0-2); Eosinophils Absolute Auto 0.1 X10*3/uL (0.0-0.4); Eosinophils Percent Auto 1.1 % (0-4); Hematocrit 35.4 % (37.0-47.0); Hemoglobin 11.3 g/dl (12.0-16.0); Imm Gran Abs Auto 0.06 X10*3/uL (0.00-0.03); Imm Gran Pct Auto 0.7 % (0.0-0.4); Lymphocytes Absolute Auto 2.4 X10*3/uL (1.2-4.9); Lymphocytes Percent Auto 27.7 % (20-40); Mean Corpuscular HGB Conc 31.9 g/dl (31.0-35.0); Mean Corpuscular Hemoglobin 31.1 pg (27.0-33.0); Mean Corpuscular Volume 97.5 fL (80.0-98.0); Mean Platelet Volume 9.5 fL (9.4-12.3); Monocytes Absolute Auto 0.4 X10*3/uL (0.1-1.2); Monocytes Percent Auto 4.3 % (2-11); NRBC Pct Auto 0.2 /100WBC (0.0-0.2); Neutrophils Absolute Auto 5.7 x10*3/uL (2.0-8.3); Neutrophils Percent Auto 64.8 % (45-73); Platelet Count 562 X10*3/uL (160-400); Red Blood Count 3.63 X10*6/uL (4.20-5.50); Red Cell Distribution Width 15.2 % (11.0-16.0); White Blood Count 8.8 X10*3/uL (4.8-10.8)
--- NOTE | 2024-01-27 07:56 | ED.CHESTPAIN ---
HPI - Chest Pain General Chief Complaint: Chest Pain Stated Complaint: L CP,SOB H/O DIALYSIS PER EMS Time Seen by Provider: 01/27/24 07:56 History of Present Illness HPI narrative: The patient is an 83-year-old woman who lives in an apartment with her sister. The apartment is in an elderly housing complex. The patient is a dialysis patient. She receives dialysis on Tuesdays, , and Saturdays. Today is Friday and she was supposed to have dialysis this morning. She normally has dialysis at around 5AM. The patient says that she felt vaguely unwell yesterday. She felt chilled and weak and her mouth felt very dry. She felt worse this morning and did not feel that she was well enough to go to dialysis and so came to the hospital instead. She does not know if she has had a fever. She did feel chilled. She has had a mild cough. She has had some body aches. She had some chest pain earlier but none now. She had some mild shortness of breath earlier but none now. Her chief complaint at this point is that she feels weak and her mouth is very dry. She denies sore throat. Related Data Home Medications ?Medication ?Instructions ?Recorded ?Confirmed montelukast 10 mg tablet 10 mg PO BEDTIME 07/28/20 11/27/23 albuterol sulfate 90 mcg/actuation 2 puff inhalation Q6H PRN 08/01/20 11/27/23 aerosol inhaler (ProAir HFA) Shortness Of Breath fluoxetine 40 mg capsule 40 mg PO QAM 08/01/20 11/27/23 lorazepam 0.5 mg tablet 0.5 mg PO BID PRN Anxiety 08/01/20 11/27/23 pantoprazole 40 mg tablet,delayed 40 mg PO DAILY 08/01/20 11/27/23 release atorvastatin 40 mg tablet 40 mg PO DAILY 06/19/22 11/27/23 cetirizine 10 mg tablet 10 mg PO DAILY 06/19/22 11/27/23 mdjvztqwjq-rgekbnghzsqzg-sijziwit 1 tab PO Q12H PRN Headache 12/09/22 11/27/23 50 mg-325 mg-40 mg tablet diclofenac sodium 1 % topical gel 4 g topical TID 08/22/23 11/27/23 lisinopril 10 mg tablet 10 mg PO BEDTIME 08/22/23 11/27/23 calcium carbonate 500 mg calcium 500 mg PO TID PRN Acid Reflux 09/25/23 11/27/23 (1,250 mg) tablet cholecalciferol (vitamin D3) 1,250 1,250 mcg PO QMONTH 09/25/23 11/27/23 mcg (50,000 unit) tablet ferrous gluconate 324 mg PO MOWEFR@0900 09/25/23 11/27/23 sennosides 8.6 mg tablet (senna) 17.2 mg PO DAILY PRN Constipation 09/25/23 11/27/23 sevelamer carbonate 800 mg tablet 800 mg PO TIDWM 09/25/23 11/27/23 gabapentin 100 mg capsule 100 mg PO BEDTIME 11/27/23 11/27/23 Previous Rx's ?Medication ?Instructions ?Recorded oxycodone-acetaminophen 5 mg-325 1 tab PO Q8H PRN Pain, Moderate 12/13/22 mg tablet #10 tabs cefuroxime axetil 250 mg tablet 250 mg PO Q24H #5 tabs 12/05/23 Allergies Allergy/AdvReac Type Severity Reaction Status Date / Time codeine [Codeine] Allergy Mild RASH Verified 01/19/24 21:42 Sulfa (Sulfonamide Allergy Mild HIVES Verified 01/19/24 21:42 Antibiotics) [Sulfa (Sulfonamides)] ibuprofen [From Motrin] AdvReac Mild STOMACH Verified 01/19/24 21:42 UPSET, Rectal bleeding Review of Systems Review of Systems: Yes all other systems are reviewed and are negative PMFSH Past Medical History Medical History ESRD needing dialysis Chronic kidney disease requiring chronic dialysis Compression fx, lumbar spine ESRD (end stage renal disease) CKD (chronic kidney disease) stage 4, GFR 15-29 ml/min Metabolic acidosis Hyperkalemia FLORECITA (acute kidney injury) Anemia CHF (congestive heart failure) Headache Hypertensive urgency CKD (chronic kidney disease) Anxiety and depression Hiatal hernia Chronic anemia Hyperlipidemia Back pain Osteoarthritis Anemia COPD (chronic obstructive pulmonary disease) GERD (gastroesophageal reflux disease) Asthma Hypertension Surgical History Hx of breast biopsy History of esophagogastroduodenoscopy (EGD) Hx of colonoscopy History of left-sided carotid endarterectomy History of total right hip arthroplasty History of open reduction and internal fixation (ORIF) procedure History of cholecystectomy H/O of rectopexy History of bowel resection H/O: hysterectomy Social History Social History Household Members: Children Household Members Other:: DAUGHTER LAURECE Housing: Apartment Do you presently have visiting nurse or other home services: Yes Unable to assess alcohol history related to: Unknown Alcohol intake: current Alcohol intake frequency: holidays/special occasions only Comment: tylenol 325mg po given & warm blanket, layed on left side Patient Tobacco Use Status: Former Tobacco user Quit Date: 12 YEARS AGO Tobacco use type: Cigarette Years Smoked: 20 Smoked in Last 30 Days: No e-Cigarette/Vaping Use: Never Used Second Hand Smoke Exposure: No Substance Use Type: Marijuana Any prior treatment program specific to substance use: No Advance Directives: Yes Advance Directives on File: Yes Advance Directives Date on File: 09/04/20 service: No Current occupational status: retired Physical Exam Vital Signs: Vital Signs: Last Vital Signs Temp 98.7 F 01/27/24 12:59 Pulse 87 01/27/24 12:59 Resp 16 01/27/24 12:59 BP 154/83 H 01/27/24 12:59 Pulse Ox 96 01/27/24 12:59 O2 Del Method Room Air 01/27/24 12:59 BMI result Body Mass Index 13.7 Const: Other: The patient is a very frail looking older person who was awake and alert. She is pleasant and cooperative. She looks chronically weak and chronically ill but not obviously acutely ill. HEENT: Other: Face is symmetrical. The patient is edentulous. Mucous membranes are not obviously dry. No intraoral swelling. Eyes: Other: Pupils are round equal, conjunctivae are clear, she has bilateral lid lag suggesting mild proptosis bilaterally Neck: Other: No cervical adenopathy, neck is benign Resp: Other: The patient had an occasional cough. When coughing she had some slight wheezes but when not coughing she did not have wheezes or crackles. No increased work of breathing. Cardio: Rate: regular rate Rhythm: regular rhythm Heart sounds: S1 normal heart sound present and S2 normal heart sound present GI: Other: Abdomen is soft and nontender Skin: Other: Skin is dry and unremarkable Neuro: Other: The patient is awake and alert. She is reasonably well oriented. She knows that she is at [facility]. No cranial nerve deficit. She moves her extremities symmetrically. No obvious focal deficit. Extrem: Other: The patient has a very slim lower legs with no edema, tenderness, or asymmetry. Medications Administered Discontinued Medications Generic Name Dose Route Start Last Admin Trade Name Geovanniq PRN Reason Stop Dose Admin Al Hydroxide/Mg Hydroxide 30 ml 01/27/24 10:10 01/27/24 10:13 Magnesium Hydrox/Alum Hydrox 30 Ml Oral.Susp PO 01/27/24 10:11 30 ml ONCE ONE Administration Lisinopril 10 mg 01/27/24 11:12 01/27/24 11:22 Lisinopril 10 Mg Tablet PO 01/27/24 11:13 10 mg ONCE ONE Administration Protocol Medical Decision Making Medical Decision Making MDM Narrative: The patient is an 83-year-old woman who came to the emergency room for evaluation of chest pain she felt this morning. Because of the chest pain and a variety of other symptoms she came to the hospital instead of going to dialysis this morning. In fact when I spoke to her she really did not talk much about chest pain. She spoke more about feeling congested and having a lot of body aches. I thought that perhaps she might have a flu-like illness. Overall the patient is emergency room workup is negative for an acute coronary syndrome or any other acutely dangerous process as far as I can tell. She has not hyperkalemic and I do not think there is any urgent need for dialysis. I reviewed this by text with her creative services specialist. The patient seemed to feel better after receiving some Maalox in the emergency department. I felt she was well enough for discharge. Lab Data 01/27/24 07:42 01/27/24 07:42 Labs: Lab Results 01/27/24 01/27/24 01/27/24 Range/Units 07:42 09:21 11:00 WBC 8.8 (4.8-10.8) X10*3/uL RBC 3.63 L (4.20-5.50) X10*6/uL Hgb 11.3 L (12.0-16.0) g/dl Hct 35.4 L (37.0-47.0) % MCV 97.5 (80.0-98.0) fL MCH 31.1 (27.0-33.0) pg MCHC 31.9 (31.0-35.0) g/dl RDW 15.2 (11.0-16.0) % Plt Count 562 H D (160-400) X10*3/uL MPV 9.5 (9.4-12.3) fL Immature Gran % (Auto) 0.7 H (0.0-0.4) % Neut % (Auto) 64.8 (45-73) % Lymph % (Auto) 27.7 (20-40) % Pershing % (Auto) 4.3 (2-11) % Eos % (Auto) 1.1 (0-4) % Baso % (Auto) 1.4 (0-2) % Lymph # (Auto) 2.4 (1.2-4.9) X10*3/uL Pershing # (Auto) 0.4 (0.1-1.2) X10*3/uL Eos # (Auto) 0.1 (0.0-0.4) X10*3/uL Baso # (Auto) 0.1 (0.0-0.2) X10*3/uL Abs Immat Gran (auto) 0.06 H (0.00-0.03) X10*3/uL Absolute Neuts (auto) 5.7 (2.0-8.3) x10*3/uL Absolute Nucleated RBC 0.020 H (0.0-0.012) X10*3/uL Nucleated RBC % (auto) 0.2 (0.0-0.2) /100WBC PT 12.5 (11.1-13.3) SEC INR 1.0 (0.9-1.1) Sodium 147 H (135-145) mmol/L Potassium 3.8 (3.3-5.1) mmol/L Chloride 104 (96-108) mmol/L Carbon Dioxide 21 L (22-29) mmol/L Anion Gap 26 H (12-20) BUN 54 H (9-16) mg/dL Creatinine 8.84 H* (0.5-1.4) mg/dL Estim Creat Clear Calc 3.1 Estimated GFR 4 POC Glucose 58 L* (60-115) mg/dL Random Glucose 62 (60-115) mg/dL Calcium 9.6 (8.4-10.2) mg/dL Troponin I High Sens 22.5 H D 22.8 H (<3.5-17.0) ng/L C-Reactive Protein 1.24 H (< or = 0.50) mg/dL B-Natriuretic Peptide 273 H (<100) pg/mL TSH 0.44 (0.32-4.0) uIU/mL Influenza Type A (PCR) NEGATIVE (Negative) Influenza Type B (PCR) NEGATIVE (Negative) RSV RNA Qual (PCR) NEGATIVE (Negative) SARS-CoV-2 RNA (RT-PCR) NEGATIVE (Negative) Independent Interpretation I performed an independent interpretation of an: EKG Interpretation: EKG at 11/01/2006 shows normal sinus rhythm at 78 beats per minute. It is an unremarkable EKG Discharge Plan Discharge Clinical Impression: Chest discomfort Patient Disposition: Home, Self-Care Additional Instructions: Your testing today does not show any sign of a heart attack or any other signs of an acutely dangerous process. Additionally you have tested negative for the flu, COVID, and RSV. You missed your dialysis today but your blood tests are not showing any emergency need for dialysis today. I contacted the nephrology team and they feel your numbers are good enough that if you are unable to get dialyzed later today dialysis on would be fine. Therefore you may call the dialysis center and see if they can get you in this afternoon. However if they are unable to get you in today you seemed safe to wait until . Please continue your regular medications. Return to the emergency room if significantly worse. Prescriptions: No Action montelukast 10 mg tablet 10 mg PO BEDTIME albuterol sulfate [ProAir HFA] 90 mcg/actuation Hfa Aerosol Inhaler 2 puff INHALATION Q6H PRN (Reason: Shortness Of Breath) lorazepam 0.5 mg Tablet 0.5 mg PO BID PRN (Reason: Anxiety) pantoprazole 40 mg Tablet,Delayed Release (Dr/Ec) 40 mg PO DAILY fluoxetine 40 mg Capsule 40 mg PO QAM atorvastatin 40 mg tablet 40 mg PO DAILY cetirizine 10 mg Tablet 10 mg PO DAILY oxlrezxzgf-tlkjutnklxptc-hhuw 50-325-40 mg tablet 1 tab PO Q12H PRN (Reason: Headache) oxycodone-acetaminophen 5-325 mg tablet 1 tab PO Q8H PRN (Reason: Pain, Moderate) Qty: 10 0RF lisinopril 10 mg tablet 10 mg PO BEDTIME diclofenac sodium 1 % gel 4 g topical TID sevelamer carbonate 800 mg tablet 800 mg PO TIDWM cholecalciferol (vitamin D3) 1,250 mcg (50,000 unit) Tablet 1,250 mcg PO QMONTH ferrous gluconate 324 MG tablet 324 mg PO MOWEFR@0900 sennosides [senna] 8.6 mg Tablet 17.2 mg PO DAILY PRN (Reason: Constipation) calcium carbonate 500 mg calcium (1,250 mg) Tablet 500 mg PO TID PRN (Reason: Acid Reflux) gabapentin 100 mg capsule 100 mg PO BEDTIME cefuroxime axetil 250 mg Tablet 250 mg PO Q24H Qty: 5 0RF Referrals: Fran Alegria MD [Physician] - (chest pain) Gavino Garcia MD [Physician] - (chest pain, missed dialysis) Interventions: ED Discharge Assessment Last Done: 01/27/24 12:59 Discharge Date/Time: 01/27/24 13:00 Print Language: Palestinian
[2024-01-27 07:57] LABS: Prothrombin Time 12.5 SEC (11.1-13.3)
[2024-01-27 08:16] LABS: Anion Gap 26 (12-20); Blood Urea Nitrogen 54 mg/dL (9-16); Calcium 9.6 mg/dL (8.4-10.2); Carbon Dioxide 21 mmol/L (22-29); Chloride 104 mmol/L (96-108); Creatinine Clr Calc Pharmacy 3.1; Estimated Glomerular Filt Rate 4; Glucose Random 62 mg/dL (60-115); Potassium 3.8 mmol/L (3.3-5.1); Sodium 147 mmol/L (135-145)
[2024-01-27 08:17] LABS: B Type Natriuretic Peptide 273 pg/mL (<100)
[2024-01-27 08:27] LABS: Influenza A PCR NEGATIVE (Negative); Influenza B PCR NEGATIVE (Negative); Resp Syncy Virus RNA Qual PCR NEGATIVE (Negative); SARS COV2 PCR INHOUSE NEGATIVE (Negative)
[2024-01-27 08:29] LABS: Troponin-I High Sensitivity 22.5 ng/L (<3.5-17.0)
[2024-01-27 08:56] VITALS: BP 189/97; PULSE 73; RESP 18; O2SAT 100
[2024-01-27 08:57] LABS: C Reactive Protein 1.24 mg/dL (< or = 0.50)
--- NOTE | 2024-01-27 08:58 | ECG_ITS ---
Test Reason : CHEST PAIN Blood Pressure : / mmHG Vent. Rate : 071 BPM Atrial Rate : 071 BPM P-R Int : 148 ms QRS Dur : 076 ms QT Int : 428 ms P-R-T Axes : 060 028 045 degrees QTc Int : 465 ms Normal sinus rhythm Normal ECG When compared with ECG of 27-JAN-2024 07:16, No significant change was found Referred By: Caio Blair Electronically Signed By:YONI GUAMAN MD
[2024-01-27 09:20] LABS: Thyroid Stimulating Hormone 0.44 uIU/mL (0.32-4.0)
[2024-01-27 09:50] LABS: Troponin-I High Sensitivity 22.8 ng/L (<3.5-17.0)
[2024-01-27] MEDS: Magnesium Hydrox/Alum Hydrox 30 ML ORAL.SUSP PO (10:13)
[2024-01-27 11:03] LABS: Glucose, Whole Blood 58 mg/dL (60-115)
[2024-01-27] MEDS: lisinopriL 10 MG TABLET PO (11:22)
[2024-01-27 11:23] VITALS: BP 155/90; PULSE 89; RESP 16; O2SAT 96
--- NOTE | 2024-01-27 11:29 | PC.NURSE ---
Assumed care of this patient at 1100, patient wanting OJ, bedside POC 58, OJ given, resting quietly regularly ringing for incidental needs at this time.
--- NOTE | 2024-01-27 11:40 | PC.NURSE ---
daughter is working on a ride and will call when she arranges
[2024-01-27 12:59] VITALS: BP 154/83; PULSE 87; RESP 16; TEMP 37.1; O2SAT 96
== END 2024-01-27 13:00 | disposition home or self-care (01) ==
PROVIDERS: Emergency Provider Emergency Medicine
DX: R07.89 Other chest pain (principal); I12.0 Hypertensive chronic kidney disease with stage 5 chronic kidney disease or end stage renal disease; N18.6 End stage renal disease; Z99.2 Dependence on renal dialysis; Z03.818 Encounter for observation for suspected exposure to other biological agents ruled out
CPT/HCPCS: 0241U; 36415; 71045; 80048; 82947; 83880; 84443; 84484; 85025; 85610; 86140; 93005; 99283; 99284

== ENCOUNTER → 2024-01-27 07:14 | Outpatient (BNV) | payer MEDICARE, SELFPAY | PROVIDERS: Emergency Provider Emergency Medicine; Visit Provider Internal Medicine Cardiovascular Disease | DX: R07.9 Chest pain, unspecified (principal) | CPT/HCPCS: 93010 ==

== ENCOUNTER 2024-02-10 12:36 | Outpatient (REF) | payer MEDICARE, SELFPAY ==
--- NOTE | ~2024-02-10 | MM_ITS ---
EXAMINATION: MM SCREENING DIGITAL BREAST TOMOSYNTHESIS, BILATERAL CLINICAL INFORMATION: Screening. Asymptomatic. COMPARISON: Mammography: This study is compared with prior exams dating back to 2017. TECHNIQUE: Digital breast tomosynthesis is performed in both the craniocaudal and mediolateral oblique views along with computer-aided detection (CAD). Synthesized 2D images are generated from the tomosynthesis. FINDINGS: There are scattered areas of fibroglandular density (ACR BI-RADS breast composition Category b). There is evidence of weight loss since the last mammogram from 2017. There are no significant masses, abnormal calcifications, or other abnormalities. There is a central venous access port superior aspect of the right side of the chest. MM/MM tomosynthesis screening BI IMPRESSION: No mammographic evidence of malignancy. ASSESSMENT: BI-RADS BI-RADS 1 - Negative RECOMMENDATION: Routine annual mammography screening. 1 year F/U This examination should not preclude the clinical evaluation of a suspicious palpable abnormality. This patient's information was entered into a reminder system with a target due date for their next mammogram.
--- NOTE | ~2024-02-10 | MM_ITS ---
EXAMINATION: BONE DENSITOMETRY CLINICAL INDICATION: Menopause. COMPARISON: Previous BD dated 01/07/2014 and baseline BD dated 12/24/2011. TECHNIQUE: Using a [employer] DXA System (software version: 13.1) manufactured by [employer], dual-energy x-ray absorptiometry was performed of the lumbar spine and left hip. The images are of good technical quality. Summary results are attached. FINDINGS: LEFT FEMUR, NECK: Current: BMD 0.496 g/cm2, Z-score -2.2, T-score -3.9, osteoporosis. Prior: BMD 0.662 g/cm2. Baseline: BMD 0.695 g/cm2. LEFT FEMUR, TOTAL: Current: BMD 0.463 g/cm2, Z-score -2.8, T-score -4.3, osteoporosis, 32.2% decrease from previous, 36.3% decrease from baseline (<5% change is not significant). Prior: BMD 0.683 g/cm2. Baseline: BMD 0.727 g/cm2. AP SPINE L1-L3 (excluding L4): The data of L1-L4 has been changed to exclude the L4 vertebral body, because degenerative sclerosis at this level may cause overestimation of lumbar spine density. Current: BMD 0.803 g/cm2, Z-score -1.4, T-score -3.1, osteoporosis, 8.3% decrease from previous, 12.7% decrease from baseline (<5% change is not significant). Prior: BMD 0.876 g/cm2. Baseline: BMD 0.920 g/cm2. IDENTIFIED RISK FACTORS: Menopause, dementia, glucocorticoids (chronic), history of fracture (adult), hysterectomy, left oophorectomy, osteoporosis, recurrent falls, renal, secondary osteoporosis (intestinal bowel disease). HISTORY OF FRACTURE: Hip, wrist, other. MEDICATIONS: Calcium, vitamin D. MM/XR DEXA axial skeleton IMPRESSION: 1. DIAGNOSIS: Severe osteoporosis based on the lowest T-score value of -4.3 in the total femur and history of fracture of wrist and hip applying World Health Organization criteria. 2. 10-YEAR FRACTURE RISK PREDICTION, FRAX: According to the guidelines, FRAX calculation should only be performed on patients in the osteopenia bone density category. Therefore, FRAX was not performed on this patient. 3. Treatment Recommendations: NOF guidelines recommend consideration for treatment in postmenopausal women and men age 50 and older presenting with the following: -A hip or vertebral (clinical or morphometric) fracture. -T-score less than or equal to -2.5 at the femoral neck or spine after appropriate evaluation to exclude secondary causes. -Low bone mass at the hip or spine and a 10-year fracture probability by FRAX of greater than or equal to 3% for hip fracture or greater than or equal to 20% for major osteoporotic fracture based on the [place] adapted WHO algorithm. 4. Other Recommendations: All treatment decisions require clinical judgment and consideration of individual patient factors, including patient preferences, comorbidities, previous drug use, risk factors not captured in the FRAX model (e.g. frailty, falls, vitamin D deficiency, increased bone turnover, interval significant decline in bone density) and possible under or overestimation of fracture risk by FRAX. Additional medical evaluation for secondary cause of low bone mineral density may be appropriate. FUTURE SCAN RECOMMENDATION: People with diagnosed cases of osteoporosis or at high risk for fracture should have regular bone mineral density tests. For patients eligible for Medicare, routine testing is allowed once every 2 years. The testing frequency can be increased to one year for patients who have rapidly progressing disease, those who are receiving or discontinuing medical therapy to restore bone mass, or have additional risk factors.
== END 2024-02-10 12:37 | disposition home or self-care (01) ==
LOC: HO.MAMMO 12:36
PROVIDERS: PCP Internal Medicine; Visit Provider Internal Medicine
DX: Z12.31 Encounter for screening mammogram for malignant neoplasm of breast (principal); Z13.820 Encounter for screening for osteoporosis; Z78.0 Asymptomatic menopausal state
CPT/HCPCS: 77063; 77067; 77080

== ENCOUNTER → 2024-02-10 13:00 | Outpatient (BNV) | payer MEDICARE, SELFPAY | PROVIDERS: PCP Internal Medicine; Visit Provider Radiology Diagnostic Radiology | DX: Z12.31 Encounter for screening mammogram for malignant neoplasm of breast (principal) | CPT/HCPCS: 77063; 77067 ==

== ENCOUNTER 2024-03-04 18:32 | Emergency (ER) | payer MEDICARE, SELFPAY ==
--- NOTE | ~2024-03-04 | CT_ITS ---
EXAMINATION: CT ABDOMEN AND PELVIS WITHOUT CONTRAST CLINICAL INFORMATION: Abdominal pain. COMPARISON: 11/26/2023. TECHNIQUE: Multidetector volumetric imaging was performed from the superior aspect of the liver through the pubic symphysis. Sagittal and coronal reformatted images were obtained on the technologist's workstation. This CT examination was performed using dose optimization techniques as appropriate, variously including the following: *Automated exposure control *Adjustment of mA and/or kV according to patient size (this includes techniques or standardized protocols for targeted exams where dose is matched to indication/reason for exam; i.e. extremities or head) *Use of iterative reconstruction technique DLP: 338 mGy-cm FINDINGS: LUNG BASES: Moderate centrilobular emphysema within visualized lung bases. Mucous is present within some of the bronchi of each lower lobe. The opacity in the left lower lobe is consistent with subsegmental atelectasis. Coronary artery calcifications are noted. HEPATOBILIARY: No acute abnormalities within the liver. Status post cholecystectomy. The intrahepatic ducts are chronically mildly dilated. Common bile duct measures up to 0.7 cm. PANCREAS: Pancreatic parenchyma has normal attenuation. No noncontrast imaging of a pancreatic mass, edema or peripancreatic fluid. The pancreatic duct is chronically mildly dilated within the head where it measures 0.6 cm diameter, unchanged compared to 12/27/2022 and 11/26/2023. SPLEEN: Normal. ADRENAL GLANDS: Normal. KIDNEYS AND URETERS: Moderate bilateral renal atrophy. No nephrolithiasis or hydronephrosis. 1.3 cm simple cyst of the upper pole the right kidney. No imaging follow-up is recommended for a simple cyst. The ureters are unremarkable. BLADDER: The urinary bladder is underdistended and not well evaluated. No bladder calculi. No evidence of perivesical edema. BOWEL AND PERITONEUM: No dilated loops of bowel. The appendix is normal. There are diverticula of the colon without evidence of diverticulitis. No abdominal free fluid or free air. ABDOMINAL WALL: Unremarkable. VASCULATURE: There is atherosclerotic disease of the abdominal aorta and iliac arteries. Chronic findings include presence of densely calcified atherosclerotic plaque of the proximal SMA. There are old stable 0.6 cm and 1.2 cm foci of rim-like calcification in the mesenteric fat. Differential diagnostic considerations would include old stable mesenteric artery aneurysms or sequela of remote mesenteric fat necrosis. LYMPH NODES: No pathologic sized lymph nodes in the abdomen or pelvis. No inguinal lymphadenopathy. PELVIC VISCERA: Pelvic structures are not optimally evaluated on this noncontrast examination and due to streak artifact from the right total hip arthroplasty hardware. The uterus is either atrophied or surgically absent. No adnexal mass. No pelvic free fluid. MUSCULOSKELETAL: Chondrocalcinosis of the pubic symphysis, left hip and spine. Multilevel degenerative disc disease and facet arthropathy lumbar spine. Chronic mild grade 1 anterolisthesis at L3-L4, L4-L5 and L5-S1. Bones are diffusely osteopenic. Old mild compression fracture of the L2 vertebral body. CT/CT abdomen pelvis wo IV con IMPRESSION: * No specific source of abdominal pain is identified. * Colonic diverticulosis without evidence of diverticulitis. * Severe atherosclerotic disease of the abdominal aorta and iliac arteries without aneurysm. * The intrahepatic ducts are chronically mildly dilated, status post cholecystectomy. * Chronic mild dilatation of the pancreatic duct within the pancreatic head. No acute pancreatic pathology. * Old L2 vertebral body compression fracture. No acute abnormalities within the degenerated spine.
--- NOTE | ~2024-03-04 | CT_ITS ---
EXAMINATION: CT head/brain wo IV con CLINICAL INFORMATION: Reason for Exam headache COMPARISON: CT head 12/02/2023 TECHNIQUE: Contiguous axial imaging was performed from the skull base to vertex without intravenous contrast. Sagittal and coronal reformatted images were obtained. This CT examination was performed using dose optimization techniques as appropriate, variously including the following: * Automated exposure control * Adjustment of mA and/or kV according to patient size (this includes techniques or standardized protocols for targeted exams where dose is matched to indication/reason for exam; i.e. extremities or head) Use of iterative reconstruction technique DLP: 537 mGy-cm FINDINGS: Mild global cerebral volume loss. No territorial loss of chapa-white differentiation. No acute intracranial hemorrhage or extra-axial fluid collection. No mass lesion, significant mass effect, or herniation pattern. Partially empty sella. The orbits are grossly normal. Paranasal sinuses and mastoid air cells are well aerated. Osseous structures are intact. CT/CT head/brain wo IV con IMPRESSION: No acute intracranial abnormality. Specifically, no CT evidence of acute intracranial hemorrhage, significant mass effect, hydrocephalus, or large territorial infarction. Partially empty sella.
[2024-03-04 18:44] VITALS: BP 118/78; PULSE 91; O2SAT 97
[2024-03-04 18:47] VITALS: BMI 15.0
[2024-03-04 18:52] VITALS: BP 135/87; PULSE 89; RESP 18; TEMP 36.8; O2SAT 96
--- NOTE | 2024-03-04 19:21 | ED.GENADULT ---
HPI - General Adult General Chief complaint: General Medical Stated complaint: BiLat knee pain,08/05 migraine Time Seen by Provider: 03/04/24 18:37 Source: patient, RN notes reviewed and old records reviewed Mode of arrival: ambulatory Limitations: no limitations History of Present Illness HPI narrative: 83-year-old female with past medical history significant for end-stage renal disease on dialysis, chronic knee pain, osteoarthritis, physical deconditioning presents for evaluation of ?pain. ? Patient complains of a headache for the last 2 days, she complains of lower abdominal pain since this morning and knee pain over the last few days She denies any falls The patient denies any blurry vision, lightheadedness, dizziness She does endorse some nausea and vomiting since yesterday The patient does make urine but states ?it takes a long time. ? Denies any burning with urination Denies any chest pain, cough, shortness of breath Denies any fevers The patient is prescribed Percocet 02/26/2025 most recently feeling a 10 day prescription on 02/24/2024 The patient's hemodialysis schedule is Friday, , Friday and she reports going to dialysis today. On review of the patient's medical record, this facility filed with [facility] senior services due to concerns that the patient was not receiving her Ativan and oxycodone that was supposed to be provided by patient's daughter. The patient states that she is still living with her daughter. Related Data Home Medications ?Medication ?Instructions ?Recorded ?Confirmed montelukast 10 mg tablet 10 mg PO BEDTIME 07/28/20 03/05/24 albuterol sulfate 90 mcg/actuation 2 puff inhalation Q6H PRN 08/01/20 03/05/24 aerosol inhaler (ProAir HFA) Shortness Of Breath fluoxetine 40 mg capsule 40 mg PO QAM 08/01/20 03/05/24 lorazepam 0.5 mg tablet 0.5 mg PO BID PRN Anxiety 08/01/20 03/05/24 pantoprazole 40 mg tablet,delayed 40 mg PO DAILY 08/01/20 03/05/24 release atorvastatin 40 mg tablet 40 mg PO DAILY 06/19/22 03/05/24 cetirizine 10 mg tablet 10 mg PO DAILY 06/19/22 03/05/24 [id number]-[id number]-dfgoqggg 1 tab PO Q12H PRN Headache 12/09/22 03/05/24 50 mg-325 mg-40 mg tablet diclofenac sodium 1 % topical gel 4 g topical TID PRN Pain 08/22/23 03/05/24 lisinopril 10 mg tablet 10 mg PO BEDTIME 08/22/23 03/05/24 cholecalciferol (vitamin D3) 1,250 1,250 mcg PO QMONTH 09/25/23 03/05/24 mcg (50,000 unit) tablet ferrous gluconate 324 mg PO MOWEFR@0900 09/25/23 03/05/24 sennosides 8.6 mg tablet (senna) 17.2 mg PO DAILY PRN Constipation 09/25/23 03/05/24 sevelamer carbonate 800 mg tablet 800 mg PO TIDWM 09/25/23 03/05/24 gabapentin 100 mg capsule 100 mg PO BEDTIME 11/27/23 03/05/24 albuterol sulfate 2.5 mg/3 mL 2.5 mg inhalation BID 03/05/24 03/05/24 (0.083 %) solution for nebulization calcium carbonate (Calcium Antacid) 200 mg PO TID 03/05/24 03/05/24 Previous Rx's ?Medication ?Instructions ?Recorded oxycodone-acetaminophen 5 mg-325 1 tab PO Q8H PRN Pain, Moderate 12/13/22 mg tablet #10 tabs Allergies Allergy/AdvReac Type Severity Reaction Status Date / Time codeine [Codeine] Allergy Mild RASH Verified 03/04/24 18:48 Sulfa (Sulfonamide Allergy Mild HIVES Verified 03/04/24 18:48 Antibiotics) [Sulfa (Sulfonamides)] ibuprofen [From Motrin] AdvReac Mild STOMACH Verified 03/04/24 18:48 UPSET, Rectal bleeding Review of Systems Constitutional: Constitutional: Denies body ache(s), Denies chills, Denies fever(s) and Reports headache(s) Eyes: Eyes: Denies blurry vision ENT: Reports headache(s) and Denies sore throat Cardiovascular: Cardiovascular: Denies chest pain and Denies dyspnea Respiratory: Respiratory: Denies cough and Denies dyspnea Gastrointestinal: Gastrointestinal: Reports abdominal pain, Reports nausea and Reports vomiting Musculoskeletal: Musculoskeletal: Denies back pain, Reports arthralgias, Denies joint swelling and Reports limited range of motion Integumentary/Breasts: Skin/Breast: Denies rash Neurologic: Reports headache(s) PMFSH Past Medical History Medical History ESRD needing dialysis Chronic kidney disease requiring chronic dialysis Compression fx, lumbar spine ESRD (end stage renal disease) CKD (chronic kidney disease) stage 4, GFR 15-29 ml/min Metabolic acidosis Hyperkalemia FLORECITA (acute kidney injury) Anemia CHF (congestive heart failure) Headache Hypertensive urgency CKD (chronic kidney disease) Anxiety and depression Hiatal hernia Chronic anemia Hyperlipidemia Back pain Osteoarthritis Anemia COPD (chronic obstructive pulmonary disease) GERD (gastroesophageal reflux disease) Asthma Hypertension Surgical History Hx of breast biopsy History of esophagogastroduodenoscopy (EGD) Hx of colonoscopy History of left-sided carotid endarterectomy History of total right hip arthroplasty History of open reduction and internal fixation (ORIF) procedure History of cholecystectomy H/O of rectopexy History of bowel resection H/O: hysterectomy Social History Social History Household Members: Children Household Members Other:: DAUGHTER LAURECE Housing: Apartment Do you presently have visiting nurse or other home services: Yes Unable to assess alcohol history related to: Unknown Alcohol intake: current Alcohol intake frequency: holidays/special occasions only Comment: tylenol 325mg po given & warm blanket, layed on left side Patient Tobacco Use Status: Former Tobacco user Quit Date: 12 YEARS AGO Tobacco use type: Cigarette Years Smoked: 20 Smoked in Last 30 Days: No e-Cigarette/Vaping Use: Never Used Second Hand Smoke Exposure: No Use of substances other than those prescribed or required for medical reasons: No Substance Use Type: Marijuana Advance Directives: Yes Advance Directives on File: Yes Advance Directives Date on File: 09/04/20 service: No Current occupational status: retired Physical Exam ED Vital Signs: Vital Signs - 24 hr 03/04/24 18:52 03/04/24 22:13 03/05/24 03:36 Temperature 98.3 F 98.1 F 98.3 F Pulse Rate 89 75 87 Respiratory Rate 18 17 12 Blood Pressure 135/87 159/84 H 119/75 Pulse Oximetry 96 97 96 Oxygen Delivery Method Room Air Room Air Room Air 03/05/24 07:53 03/05/24 10:14 Temperature 97.9 F Pulse Rate 78 78 Respiratory Rate 16 Blood Pressure 156/83 H 156/83 H Pulse Oximetry 95 95 Oxygen Delivery Method Room Air BMI result Body Mass Index 15.0 Const General: healthy appearing, comfortable, no acute distress, alert and awake Nutritional Appearance: well nourished Orientation/consciousness: patient oriented x3 HENMT Head: Yes normocephalic and Yes atraumatic Eyes Eyelids: Yes eyelids normal Conjunctivae: conjunctivae normal Sclerae: sclerae normal Corneas: corneas normal Pupils: Equal, round and reactive pupils present EOM: EOMs intact bilaterally Neck Neck: Yes full ROM Resp Effort & Inspection: normal respiratory effort, able to speak in complete sentences, no audible wheezes and not labored Auscultation: clear to auscultation bilaterally Cardio Rate: regular rate Rhythm: regular rhythm GI Inspection: No distended Palpation (GI): Soft to palpation, not firm, Tenderness to palpation present (GI) (Tenderness in the suprapubic region without guarding), no guarding and not rigid Skin General skin exam: elasticity normal Neuro General: patient oriented x3 Cranial nerves: Yes Equal, round and reactive pupils present and Yes Bilaterally intact EOM present Cognition (Neuro): normal cognition Extrem Other: Moving all extremities well without any obvious deformities Course Reevaluation(s) Reevaluation #1: Patient's headache and abdominal pain have resolved, she is now only complaining of knee pain bilaterally. Will give her oxycodone q.6 p.r.n. pain. She will likely require case management and physical therapy evaluation due to her pain Time: 22:08 Reevaluation #2: 03/05/2024 0721 --> Physician observation continues. Pending physical therapy evaluation. Case management continues to follow. 03/05/2024 1350 --> Observation care revealed the the patient does not meet medical necessity for hospitalization. Patient will be discharged home with home SN and PT. Final disposition discussed with the patient and the patient's daughter who verbalized understanding and agreement. Patient completed observation care at 1350, total time spent in observation care was 14 hours and 52 minutes. Medications Administered Generic Name Dose Route Start Last Admin Trade Name Freq PRN Reason Stop Dose Admin Atorvastatin Calcium 40 mg 03/05/24 10:45 03/05/24 12:52 Atorvastatin Calcium 40 Mg Tablet PO 40 mg DAILY TONIO Administration Fluoxetine HCl 40 mg 03/05/24 10:45 03/05/24 12:52 Fluoxetine Hcl 20 Mg Capsule PO 40 mg DAILY@0900 TONIO Administration Loratadine 10 mg 03/05/24 12:30 03/05/24 12:52 Loratadine 10 Mg Tablet PO 10 mg DAILY TONIO Administration Non-Formulary Medication 1,250 mcg 03/05/24 12:30 03/05/24 12:52 Cholecalciferol (Vitamin D3) PO Not Given Q30D [facility] Oxycodone HCl 5 mg 03/04/24 22:05 03/05/24 07:51 Oxycodone Hcl Immed Release 5 Mg Tablet PO 5 mg Q6H PRN Administration Pain, Severe (Pain Scale 7-10) Sevelamer Carbonate 800 mg 03/05/24 12:00 03/05/24 12:52 Sevelamer Carbonate Tablet 800 Mg Tablet PO 800 mg TIDWM TONIO Administration Discontinued Medications Generic Name Dose Route Start Last Admin Trade Name Amairani PRN Reason Stop Dose Admin Morphine Sulfate 2 mg 03/04/24 20:24 03/04/24 20:28 Morphine Sulfate 2 Mg/Ml Cartridge IVPUSH 03/04/24 20:25 2 mg ONCE ONE Administration Protocol Morphine Sulfate 4 mg 03/05/24 01:38 03/05/24 03:30 Morphine Sulfate 4 Mg/Ml Cartridge IVPUSH 03/05/24 01:39 4 mg ONCE ONE Administration Protocol Morphine Sulfate 2 mg 03/05/24 10:34 03/05/24 10:45 Morphine Sulfate 2 Mg/Ml Cartridge IVPUSH 03/05/24 10:35 2 mg ONCE ONE Administration Protocol Ondansetron HCl 4 mg 03/04/24 20:23 03/04/24 20:28 Ondansetron Hcl 4 Mg/2 Ml Vial IVPUSH 03/04/24 20:24 4 mg ONCE ONE Administration Ondansetron HCl 4 mg 03/05/24 09:43 03/05/24 09:59 Ondansetron Hcl 4 Mg/2 Ml Vial IVPUSH 03/05/24 09:44 4 mg ONCE ONE Administration Medical Decision Making Medical Decision Making MDM Narrative: 83-year-old female with past medical history as documented above presents for evaluation of headache, abdominal pain and knee pain. She appears to have chronic knee pain with a history of a right tibial plateau fracture as well as osteoarthritis of both knees. She denies any falls inner physical exam of the knees is reassuring, no edema, decreased range of motion. Will defer emergent imaging at this time. Plan for basic labs, CT scan of the brain and abdomen pelvis. The patient is a fairly poor historian, she is awake, alert and oriented. I have a lower suspicion for intracranial hemorrhage or CVA as the patient has no focal neuro deficits. Plan for UA as the patient complains of suprapubic pain who also attempt to get a tox screen if possible. Differential Diagnosis Differential Diagnoses: The differential diagnosis associated with the presentation includes Chronic pain Acute headache Intracranial hemorrhage Migraine headache Abdominal pain Gastritis UTI Medication noncompliance Osteoarthritis Lab Data MDM Lab Attestation statement: I reviewed the patient's lab results. No leukocytosis. The patient has a chronic anemia that is consistent with the baseline. This is likely related to her chronic renal disease she has an elevated platelet count of 535. Unclear etiology. Her electrolytes are within normal limits. Her renal function is actually better than it has done in the past. She did go to dialysis today her creatinine of 3.93 is significantly improved compared to her baseline around 6. Patient has a mild AST and ALT elevation which has been chronic in the past and no worse than her baseline. Her labs otherwise reassuring 03/04/24 19:38 03/04/24 19:38 Labs: Lab Results 03/04/24 03/04/24 03/04/24 Range/Units 19:38 20:00 21:33 WBC 10.4 (4.8-10.8) X10*3/uL RBC 3.20 L (4.20-5.50) X10*6/uL Hgb 9.8 L (12.0-16.0) g/dl Hct 29.6 L (37.0-47.0) % MCV 92.5 (80.0-98.0) fL MCH 30.6 (27.0-33.0) pg MCHC 33.1 (31.0-35.0) g/dl RDW 14.7 (11.0-16.0) % Plt Count 535 H (160-400) X10*3/uL MPV 9.8 (9.4-12.3) fL Immature Gran % (Auto) 1.3 H (0.0-0.4) % Neut % (Auto) 68.7 (45-73) % Lymph % (Auto) 24.4 (20-40) % [place] % (Auto) 3.3 (2-11) % Eos % (Auto) 1.3 (0-4) % Baso % (Auto) 1.0 (0-2) % Lymph # (Auto) 2.5 (1.2-4.9) X10*3/uL [place] # (Auto) 0.3 (0.1-1.2) X10*3/uL Eos # (Auto) 0.1 (0.0-0.4) X10*3/uL Baso # (Auto) 0.1 (0.0-0.2) X10*3/uL Abs Immat Gran (auto) 0.13 H (0.00-0.03) X10*3/uL Absolute Neuts (auto) 7.1 (2.0-8.3) x10*3/uL Absolute Nucleated RBC 0.000 (0.0-0.012) X10*3/uL Nucleated RBC % (auto) 0.0 (0.0-0.2) /100WBC Sodium 141 (135-145) mmol/L Potassium 4.5 (3.3-5.1) mmol/L Chloride 96 (96-108) mmol/L Carbon Dioxide 29 (22-29) mmol/L Anion Gap 21 H (12-20) BUN 24 H (9-16) mg/dL Creatinine 3.93 H (0.5-1.4) mg/dL Estim Creat Clear Calc 7.1 Estimated GFR 11 Random Glucose 88 (60-115) mg/dL Calcium 9.6 (8.4-10.2) mg/dL Total Bilirubin 0.4 (0.0-1.0) mg/dL AST 57 H (5-31) U/L ALT 37 H (0-31) U/L Alkaline Phosphatase 113 (39-117) U/L Total Protein 8.2 H (6.5-8.0) g/dL Albumin 3.6 (3.5-5.0) g/dL Lipase 89 H (8-78) U/L Urine Color Yellow Urine Appearance Cloudy Urine pH 7.0 (5.0-9.0) Ur Specific [place] 1.020 (1.005-1.025) Urine Protein 100 (2+) H (Neg-Trace) mg/dL Urine Glucose (UA) Negative (Negative) mg/dL Urine Ketones Trace (Negative) mg/dL Urine Blood Small (1+) H (Negative) Urine Nitrite Negative (Negative) Ur Leukocyte Esterase Small (1+) H (Negative) Urine RBC 6-10 H (0-2) /HPF Urine WBC 11-20 (0-5) /HPF Ur Squamous Epith Cells 6-10 (0-2) /HPF Urine Bacteria Trace (None Seen) Hyaline Casts 11-20 (0-2) /LPF Urine Opiates Screen Not Detected (Not Detect) Ur Buprenorphine Scrn Not Detected (Not Detect) ng/mL Ur Oxycodone Screen Not Detected (Not Detect) ng/mL Urine Methadone Screen Not Detected (Not Detect) ng/mL Urine Fentanyl Screen Not Detected (Not Detect) Acetaminophen 9 (<30) mcg/mL Ur Barbiturates Screen Not Detected (Not Detect) Ur Phencyclidine Scrn Not Detected (Not Detect) Ur Amphetamines Screen Not Detected (Not Detect) U Benzodiazepines Scrn Not Detected (Not Detect) Urine Cocaine Screen Not Detected (Not Detect) U Marijuana (THC) Screen Not Detected (Not Detect) Independent Interpretation I performed an independent interpretation of an: CT Scan (No acute intracranial hemorrhage mass effect or midline shift) Radiology Impression Discussion of test interpretation with radiology: I have reviewed the radiologist's reading. Radiologist Impression: No acute intracranial abnormality. Specifically, no CT evidence of acute intracranial hemorrhage, significant mass effect, hydrocephalus, or large territorial infarction. Partially empty sella. Discharge Plan Discharge Clinical Impression: Acute headache, Abdominal pain, Bilateral knee pain Patient Disposition: Home, Self-Care Instructions: Acute Headache (DC), Abdominal Pain (ED), Knee Pain (ED) Additional Instructions: Follow up with your primary care provider. Return to the emergency department immediately if your symptoms worsen or if you develop any dizziness, shortness of breath, difficulty breathing, chest pain, blurry vision, loss of vision, nausea, vomiting, abdominal pain, fever, chills, back pain, or any other complaints. Prescriptions: No Action montelukast 10 mg tablet 10 mg PO BEDTIME albuterol sulfate [ProAir HFA] 90 mcg/actuation Hfa Aerosol Inhaler 2 puff INHALATION Q6H PRN (Reason: Shortness Of Breath) lorazepam 0.5 mg Tablet 0.5 mg PO BID PRN (Reason: Anxiety) pantoprazole 40 mg Tablet,Delayed Release (Dr/Ec) 40 mg PO DAILY fluoxetine 40 mg Capsule 40 mg PO QAM atorvastatin 40 mg tablet 40 mg PO DAILY cetirizine 10 mg Tablet 10 mg PO DAILY [id number]-[id number]-qozh 50-325-40 mg tablet 1 tab PO Q12H PRN (Reason: Headache) oxycodone-acetaminophen 5-325 mg tablet 1 tab PO Q8H PRN (Reason: Pain, Moderate) Qty: 10 0RF lisinopril 10 mg tablet 10 mg PO BEDTIME diclofenac sodium 1 % gel 4 g topical TID PRN (Reason: Pain) sevelamer carbonate 800 mg tablet 800 mg PO TIDWM cholecalciferol (vitamin D3) 1,250 mcg (50,000 unit) Tablet 1,250 mcg PO QMONTH ferrous gluconate 324 MG tablet 324 mg PO MOWEFR@0900 sennosides [senna] 8.6 mg Tablet 17.2 mg PO DAILY PRN (Reason: Constipation) gabapentin 100 mg capsule 100 mg PO BEDTIME albuterol sulfate 2.5 mg /3 mL (0.083 %) Solution For Nebulization 2.5 mg INHALATION BID calcium carbonate [Calcium Antacid] 200 mg calcium (500 mg) Tablet,Chewable 200 mg PO TID Referrals: Moe GONZALEZ [Outside] Fran Alegria MD [Primary Care Provider] - Print Language: Lithuanian
[2024-03-04 19:43] LABS: MANUAL DIFF FLAG NO
[2024-03-04 19:46] LABS: Basophils Absolute Auto 0.1 X10*3/uL (0.0-0.2); Eosinophils Absolute Auto 0.1 X10*3/uL (0.0-0.4); Eosinophils Percent Auto 1.3 % (0-4); Hematocrit 29.6 % (37.0-47.0); Hemoglobin 9.8 g/dl (12.0-16.0); Imm Gran Abs Auto 0.13 X10*3/uL (0.00-0.03); Imm Gran Pct Auto 1.3 % (0.0-0.4); Lymphocytes Absolute Auto 2.5 X10*3/uL (1.2-4.9); Lymphocytes Percent Auto 24.4 % (20-40); Mean Corpuscular HGB Conc 33.1 g/dl (31.0-35.0); Mean Corpuscular Hemoglobin 30.6 pg (27.0-33.0); Mean Corpuscular Volume 92.5 fL (80.0-98.0); Mean Platelet Volume 9.8 fL (9.4-12.3); Monocytes Absolute Auto 0.3 X10*3/uL (0.1-1.2); Monocytes Percent Auto 3.3 % (2-11); Neutrophils Absolute Auto 7.1 x10*3/uL (2.0-8.3); Neutrophils Percent Auto 68.7 % (45-73); Platelet Count 535 X10*3/uL (160-400); Red Cell Distribution Width 14.7 % (11.0-16.0); White Blood Count 10.4 X10*3/uL (4.8-10.8)
[2024-03-04 20:12] LABS: Appearance Urine Cloudy; Color Urine Yellow; Glucose Urine UA Negative (Negative); Leukocyte Esterase Urine Small (1+) (Negative); Nitrite Urine Negative (Negative); UMIC TRIGGER UACC YES; Urine Blood Small (1+) (Negative); Urine Ketones Trace mg/dL (Negative); Urine Protein 100 (2+) mg/dL (Neg-Trace)
[2024-03-04 20:26] LABS: Alanine Aminotransferase 37 U/L (0-31); Albumin Level 3.6 g/dL (3.5-5.0); Alkaline Phosphatase 113 U/L (39-117); Anion Gap 21 (12-20); Aspartate Amino Transferase 57 U/L (5-31); Bilirubin Total 0.4 mg/dL (0.0-1.0); Blood Urea Nitrogen 24 mg/dL (9-16); Calcium 9.6 mg/dL (8.4-10.2); Carbon Dioxide 29 mmol/L (22-29); Chloride 96 mmol/L (96-108); Creatinine Clr Calc Pharmacy 7.1; Estimated Glomerular Filt Rate 11; Glucose Random 88 mg/dL (60-115); Lipase 89 U/L (8-78); Potassium 4.5 mmol/L (3.3-5.1); Sodium 141 mmol/L (135-145); Total Protein 8.2 g/dL (6.5-8.0)
[2024-03-04 20:26] LABS: Amphetamine Screen Urine Not Detected (Not Detect); Barbiturates, Urine Not Detected (Not Detect); Benzodiazepines Screen Urine Not Detected (Not Detect); Buprenorphine Scr Not Detected (Not Detect); Cannabinoid Screen Urine Not Detected (Not Detect); Cocaine Screen Urine Not Detected (Not Detect); Fentanyl, urine Not Detected (Not Detect); Methadone Screen, Urine Not Detected (Not Detect); Opiate Screen Urine Not Detected (Not Detect); Oxycodone Screen Urine Not Detected (Not Detect); Phencyclidine Screen Urine Not Detected (Not Detect)
[2024-03-04] MEDS: Morphine Sulfate 2 MG/ML CARTRIDGE IVPUSH (20:28)
[2024-03-04] MEDS: ondansetron HCL 4 MG/2 ML VIAL IVPUSH (20:28)
[2024-03-04 20:31] LABS: Bacteria Urine Trace (None Seen); UACC Culture Trigger YES
[2024-03-04 22:00] LABS: Acetaminophen LAB 9 mcg/mL (<30)
[2024-03-04 22:13] VITALS: BP 159/84; PULSE 75; RESP 17; TEMP 36.7; O2SAT 97
[2024-03-04] MEDS: oxyCODONE HCl Immed Release 5 MG TABLET PO (22:19)
--- NOTE | 2024-03-04 23:01 | MHC.CM.ED ---
CM received consult from Regulo DICKERSON. Pt comes to ED complaining of bilateral knee pain, headaches and abd pain. Pt has ESRD on dialysis. CATIE Lovilia T/TH/Sat. Pt did go to dialysis today. Pt has many medical problems. She is FTT. Lives with her daughter. Has no services. Ambulates with a rollator. HCP/POA /daughter Eamon [place] ([phone]). PCP and HCP verified. Pt is alert and orientated x3. Pt states pain pills are not helping her and she wants IV medication. CM spoke with her daughter, Eamon, who tells CM that she is ill with n/v. She tells CM that her mother has had knee pain and headaches for a long time, but worse now. Has been seeing [facility]. Has appointment on Friday. Does not have any percocet for her mother because the script was only until she sees them again. Tells CM her mother takes 4-5 pills/day. Pt does have her fiorect for headaches. Pt and daughter are agreeable to PT assessment in the morning with either home PT or STR. Will place referrals with [facility], as they have dialysis. Daughter asks to be called in the morning with plan of care, as her mother has some dementia, although not formally diagnosed. She has a neurology appointment for her mother. CM will follow for safe discharge plan.
--- NOTE | 2024-03-05 00:03 | PC.NURSE ---
pt transferred to Overflow from Main ED, verbal report received, pt reported severe bilateral chronic knee pain,
--- NOTE | 2024-03-05 02:30 | PC.NURSE ---
pt awake, pt said she was scared of a pt on the unit
[2024-03-05] MEDS: Morphine Sulfate 4 MG/ML CARTRIDGE IVPUSH (03:30)
--- NOTE | 2024-03-05 03:34 | PC.NURSE ---
pt c/o of 8/10 bilateral knee pain and headache medicated per mar
[2024-03-05 03:36] VITALS: BP 119/75; PULSE 87; RESP 12; TEMP 36.8; O2SAT 96
[2024-03-05] MEDS: oxyCODONE HCl Immed Release 5 MG TABLET PO (07:51)
[2024-03-05 07:53] VITALS: BP 156/83; PULSE 78; RESP 16; TEMP 36.6; O2SAT 95
--- NOTE | 2024-03-05 07:59 | PC.NURSE ---
PT ALERT, ORIENTED TO SELF ONLY, SAYS IT IS 1984 AND WHY AM I IN THE BASEMENT . SHE WAS REDIRECTED TO PRESENT TIME AND LOCATION. PT REQUESTED PAIN MEDS FOR 8/10 CHRONIC HIP AND KNEE PAIN. PRN OXYCODONE GIVEN ORDERED AND DOCUMENTED. PT RESTING QUIETLY AT THIS TIME, NO APPARENT DISTRESS. VSS. WILL CONTINUE TO OBSERVE.
[2024-03-05] MEDS: ondansetron HCL 4 MG/2 ML VIAL IVPUSH (09:59)
[2024-03-05 10:14] VITALS: BP 156/83; PULSE 78; O2SAT 95
--- NOTE | 2024-03-05 10:15 | MHC.EDTECH ---
pt ate 25% of her breakfast
[2024-03-05] MEDS: Morphine Sulfate 2 MG/ML CARTRIDGE IVPUSH (10:45)
--- NOTE | 2024-03-05 11:08 | MHC.EDTECH ---
pt was assisted to the bathroom was washed up and complete bed change
--- NOTE | 2024-03-05 11:10 | MHC.EDTECH ---
pt voided 50ml
--- NOTE | 2024-03-05 12:10 | PHA.MEDREC ---
Pharmacy Consult ? Medication Reconciliation Pharmacy has completed the medication reconciliation. Spoke to patient's daughter Laurece ([phone]) and [facility] to confirm and edit patient's medication list. Daughter said she gives pt albuterol neb solution twice a day, she no longer takes cefuroxime, and she hasn't taken this month's dose of vitamin D yet.
[2024-03-05] MEDS: FLUoxetine HCl 20 MG CAPSULE 40 MG PO (12:52)
[2024-03-05] MEDS: Loratadine 10 MG TABLET PO (12:52)
[2024-03-05] MEDS: Atorvastatin Calcium 40 MG TABLET PO (12:52)
[2024-03-05] MEDS: Sevelamer Carbonate Tablet 800 MG TABLET PO (12:52)
--- NOTE | 2024-03-05 13:17 | MHC.EDTECH ---
pt ate 75% of her lunch
--- NOTE | 2024-03-05 13:40 | MHC.CM.ED ---
Patient remains in ER overflow. Physical therapy eval completed. Home with therapy is recommended. Spoke with patient's daughter, Ander, via telephone at [phone].Ander is agreeable to patient return home. Patient is active with [facility] and has been made aware. Patient will need to resume her regularly scheduled dialysis on Friday. Ander is going to be at facility [facility] 4pm to tranpsort patient home. Patient, Jeremiah BULL and Dorothy DICKERSON aware. Continue to monitor for d/c needs.
[2024-03-05 14:00] VITALS: BP 144/72; PULSE 82; RESP 20; TEMP 36.4; O2SAT 94
[2024-03-05] MEDS: Butalb/Acetamin/Caff 50/325/40 TABLET 1 TAB PO (16:13)
--- NOTE | 2024-03-05 16:30 | PC.NURSE ---
PT REQUESTED PAIN MED FOR HEADACHE, PRN FIORICET GIVEN.
[2024-03-05 17:02] VITALS: BP 144/72; PULSE 82; RESP 20; TEMP 36.4; O2SAT 94
== END 2024-03-05 16:45 | disposition home or self-care (01) ==
PROVIDERS: Physician Assistant; Emergency Provider Emergency Medicine; PCP Internal Medicine
DX: M25.561 Pain in right knee (principal); M25.562 Pain in left knee; G43.909 Migraine, unspecified, not intractable, without status migrainosus; R26.81 Unsteadiness on feet; R10.2 Pelvic and perineal pain; M25.50 Pain in unspecified joint; Z79.899 Other long term (current) drug therapy
CPT/HCPCS: 36415; 70450; 74176; 80053; 80143; 80307; 81001; 83690; 85025; 87086; 97161; 99285; J2270; J2405

== ENCOUNTER 2024-03-20 16:13 | Emergency (ER) | payer MEDICARE, SELFPAY ==
--- NOTE | ~2024-03-20 | XR_ITS ---
History: Pain. Exams: Left elbow 3 views right knee 2 views chest 2 views and left knee 2 views COMPARISON: None. FINDINGS: 2 partially threaded screws noted about the right tibial diaphysis. No acute deformity or evidence for hardware failure. Diminutive patella with notable loss of the patellofemoral joint. No acute deformity or effusion. Chronic remodeling noted. Left kidney notable for extensive chondrocalcinosis without evidence for any deformity of focal lesion. Once again severe degeneration of patellofemoral joint. Small joint effusion is present. Chest 2 views demonstrate right-sided central line in place overlying the right atrium. No pneumothorax. Heart size normal. No overt CHF or focal pleural-parenchymal disease. Minor left apical parenchymal scarring. Limited detail. Left elbow imaging demonstrates no effusion. Radial head and neck grossly intact. No soft tissue calcifications. XR/XR chest 2V IMPRESSION: No active chest disease. No acute deformity.
--- NOTE | ~2024-03-20 | XR_ITS ---
History: Pain. Exams: Left elbow 3 views right knee 2 views chest 2 views and left knee 2 views COMPARISON: None. FINDINGS: 2 partially threaded screws noted about the right tibial diaphysis. No acute deformity or evidence for hardware failure. Diminutive patella with notable loss of the patellofemoral joint. No acute deformity or effusion. Chronic remodeling noted. Left kidney notable for extensive chondrocalcinosis without evidence for any deformity of focal lesion. Once again severe degeneration of patellofemoral joint. Small joint effusion is present. Chest 2 views demonstrate right-sided central line in place overlying the right atrium. No pneumothorax. Heart size normal. No overt CHF or focal pleural-parenchymal disease. Minor left apical parenchymal scarring. Limited detail. Left elbow imaging demonstrates no effusion. Radial head and neck grossly intact. No soft tissue calcifications. XR/XR knee LT 2V IMPRESSION: No active chest disease. No acute deformity.
--- NOTE | ~2024-03-20 | CT_ITS ---
EXAM: CT scan of the head and cervical spine. INDICATION: Reason for Exam fall +head strike TECHNIQUE: A noncontrast CT scan was performed from the skull base to the vertex. A noncontrast CT scan of the cervical spine was performed from the base of the skull through T1 at 2.5 mm and 1.25 mm collimation. Coronal and sagittal reformats were obtained at the acquisition workstation. This CT examination was performed using dose optimization techniques as appropriate, variously including the following: *Automated exposure control *Adjustment of mA and/or kV according to patient size (this includes techniques or standardized protocols for targeted exams where dose is matched to indication/reason for exam; i.e. extremities or head) *Use of iterative reconstruction technique DLP: 573 and 240 mGy-cm COMPARISON: 12/02/2023 FINDINGS: Head: There is no evidence of acute intracranial hemorrhage or territorial infarction. South-white matter differentiation is preserved. No abnormal mass effect or midline shift. No extra-axial fluid collections. No abnormal attenuation is demonstrated within the brain parenchyma. Scattered periventricular and deep white matter hypodensities consistent with microangiopathy. The ventricles and sulcal spaces are proportional without hydrocephalus. Proportional prominence of the ventricles and sulcal spaces. No acute osseous or soft tissue abnormalities. The mastoid air cells and visualized portions of the paranasal sinuses are well aerated. Cervical Spine: Postsurgical changes with intact anterior interbody fusion changes C3-C4. No evidence for hardware failure. Severe degeneration of the remainder the mid and lower cervical disc spaces without deformity acutely. Posterior elements appear intact. Severe atherosclerosis. The atlantooccipital and atlantoaxial articulations remain well aligned. Straightening of the normal cervical lordosis. Otherwise, there is anatomic alignment of the vertebral bodies and posterior elements. No evidence of acute fracture or subluxation. There is no prevertebral soft tissue swelling. The thyroid gland and remaining cervical soft tissues are normal in appearance. The lung apices demonstrate no abnormalities. Assess central line partially imaged. CT/CT cervical spine wo IV con IMPRESSION: No acute intracranial pathology. No acute fracture subluxation cervical spine.
--- NOTE | ~2024-03-20 | XR_ITS ---
History: Pain. Exams: Left elbow 3 views right knee 2 views chest 2 views and left knee 2 views COMPARISON: None. FINDINGS: 2 partially threaded screws noted about the right tibial diaphysis. No acute deformity or evidence for hardware failure. Diminutive patella with notable loss of the patellofemoral joint. No acute deformity or effusion. Chronic remodeling noted. Left kidney notable for extensive chondrocalcinosis without evidence for any deformity of focal lesion. Once again severe degeneration of patellofemoral joint. Small joint effusion is present. Chest 2 views demonstrate right-sided central line in place overlying the right atrium. No pneumothorax. Heart size normal. No overt CHF or focal pleural-parenchymal disease. Minor left apical parenchymal scarring. Limited detail. Left elbow imaging demonstrates no effusion. Radial head and neck grossly intact. No soft tissue calcifications. XR/XR elbow LT min 3V IMPRESSION: No active chest disease. No acute deformity.
--- NOTE | ~2024-03-20 | XR_ITS ---
History: Pain. Exams: Left elbow 3 views right knee 2 views chest 2 views and left knee 2 views COMPARISON: None. FINDINGS: 2 partially threaded screws noted about the right tibial diaphysis. No acute deformity or evidence for hardware failure. Diminutive patella with notable loss of the patellofemoral joint. No acute deformity or effusion. Chronic remodeling noted. Left kidney notable for extensive chondrocalcinosis without evidence for any deformity of focal lesion. Once again severe degeneration of patellofemoral joint. Small joint effusion is present. Chest 2 views demonstrate right-sided central line in place overlying the right atrium. No pneumothorax. Heart size normal. No overt CHF or focal pleural-parenchymal disease. Minor left apical parenchymal scarring. Limited detail. Left elbow imaging demonstrates no effusion. Radial head and neck grossly intact. No soft tissue calcifications. XR/XR knee RT 2V IMPRESSION: No active chest disease. No acute deformity.
[2024-03-20 16:24] VITALS: BP 102/48; BP 95/53; PULSE 94; RESP 20; TEMP 37.1; O2SAT 94; O2SAT 95; BMI 16.8
--- NOTE | 2024-03-20 16:48 | ECG_ITS ---
Test Reason : SYNCOPE Blood Pressure : / mmHG Vent. Rate : 078 BPM Atrial Rate : 078 BPM P-R Int : 154 ms QRS Dur : 078 ms QT Int : 398 ms P-R-T Axes : 067 005 034 degrees QTc Int : 453 ms Normal sinus rhythm Minimal voltage criteria for LVH, may be normal variant ( Sokolow-Arias ) Borderline ECG When compared with ECG of 27-JAN-2024 09:01, No significant change was found Referred By: Vonda Hawley Electronically Signed By:Davis Dang
[2024-03-20 17:11] LABS: MANUAL DIFF FLAG NO
[2024-03-20] MEDS: 0.9 % Sodium Chloride 1,000 ML 999 ML IV ×2 (17:11→17:35)
[2024-03-20 17:16] LABS: Basophils Absolute Auto 0.1 X10*3/uL (0.0-0.2); Basophils Percent Auto 1.3 % (0-2); Eosinophils Absolute Auto 0.2 X10*3/uL (0.0-0.4); Eosinophils Percent Auto 2.3 % (0-4); Hematocrit 26.1 % (37.0-47.0); Hemoglobin 8.3 g/dl (12.0-16.0); Imm Gran Abs Auto 0.21 X10*3/uL (0.00-0.03); Imm Gran Pct Auto 2.2 % (0.0-0.4); Lymphocytes Percent Auto 20.9 % (20-40); Mean Corpuscular HGB Conc 31.8 g/dl (31.0-35.0); Mean Corpuscular Volume 97.4 fL (80.0-98.0); Mean Platelet Volume 10.8 fL (9.4-12.3); Monocytes Absolute Auto 0.5 X10*3/uL (0.1-1.2); Monocytes Percent Auto 4.7 % (2-11); NRBC Pct Auto 0.4 /100WBC (0.0-0.2); Neutrophils Absolute Auto 6.6 x10*3/uL (2.0-8.3); Neutrophils Percent Auto 68.6 % (45-73); Platelet Count 520 X10*3/uL (160-400); Red Blood Count 2.68 X10*6/uL (4.20-5.50); Red Cell Distribution Width 16.8 % (11.0-16.0); White Blood Count 9.7 X10*3/uL (4.8-10.8)
--- NOTE | 2024-03-20 17:18 | ED_ITS ---
HPI - Fall General Chief Complaint: Fall Stated Complaint: unwit fall w/ headstrike, head and knee pain Time Seen by Provider: 03/20/24 16:38 Source: patient, EMS, RN notes reviewed and old records reviewed Mode of arrival: EMS Limitations: no limitations History of Present Illness ED Provider: JOSE ALMONET PA-C HPI Narrative: 83 year old female with pmhx significant for ESRD (on // dialysis- did receive dialysis this morning at 0500), HTN, HDL, CHF, anemia, COPD, asthma, GERD, hiatal hernia, anxiety, and depression presents to the ED today via EMS for evaluation of unwitnessed fall occurring prior to arrival in ED. Patient states that while attempting to stand up from the couch, she became dizzy and fell/ slipped off of the couch, landing on the left side of her body. She reports LOC. Is not on AC. She is unsure of how long she was on the ground for. Per EMS, daughter at home heard patient fall and land on the floor. Patient endorses hitting the left side of her head on an iron table . At present, endorses headache, left elbow pain, and bilateral knee pain. She present in c- colar. Requesting medication for pain. She denies feeling dizzy at present. Denies vision changes, chest pain, sob, wheezes. Related Data Home Medications ?Medication ?Instructions ?Recorded ?Confirmed montelukast 10 mg tablet 10 mg PO BEDTIME 07/28/20 03/05/24 albuterol sulfate 90 mcg/actuation 2 puff inhalation Q6H PRN 08/01/20 03/05/24 aerosol inhaler (ProAir HFA) Shortness Of Breath fluoxetine 40 mg capsule 40 mg PO QAM 08/01/20 03/05/24 lorazepam 0.5 mg tablet 0.5 mg PO BID PRN Anxiety 08/01/20 03/05/24 pantoprazole 40 mg tablet,delayed 40 mg PO DAILY 08/01/20 03/05/24 release atorvastatin 40 mg tablet 40 mg PO DAILY 06/19/22 03/05/24 cetirizine 10 mg tablet 10 mg PO DAILY 06/19/22 03/05/24 pnbmwuamfj-uzjeiwszhsppq-fzugwoxq 1 tab PO Q12H PRN Headache 12/09/22 03/05/24 50 mg-325 mg-40 mg tablet diclofenac sodium 1 % topical gel 4 g topical TID PRN Pain 08/22/23 03/05/24 lisinopril 10 mg tablet 10 mg PO BEDTIME 08/22/23 03/05/24 cholecalciferol (vitamin D3) 1,250 1,250 mcg PO QMONTH 09/25/23 03/05/24 mcg (50,000 unit) tablet ferrous gluconate 324 mg PO MOWEFR@0900 09/25/23 03/05/24 sennosides 8.6 mg tablet (senna) 17.2 mg PO DAILY PRN Constipation 09/25/23 03/05/24 sevelamer carbonate 800 mg tablet 800 mg PO TIDWM 09/25/23 03/05/24 gabapentin 100 mg capsule 100 mg PO BEDTIME 11/27/23 03/05/24 albuterol sulfate 2.5 mg/3 mL 2.5 mg inhalation BID 03/05/24 03/05/24 (0.083 %) solution for nebulization calcium carbonate (Calcium Antacid) 200 mg PO TID 03/05/24 03/05/24 Previous Rx's ?Medication ?Instructions ?Recorded oxycodone-acetaminophen 5 mg-325 1 tab PO Q8H PRN Pain, Moderate 12/13/22 mg tablet #10 tabs oxycodone-acetaminophen 5 mg-325 1 tab PO Q6H PRN pain #20 tabs 03/05/24 mg tablet (Percocet) Allergies Allergy/AdvReac Type Severity Reaction Status Date / Time codeine [Codeine] Allergy Mild RASH Verified 03/20/24 16:27 Sulfa (Sulfonamide Allergy Mild HIVES Verified 03/20/24 16:27 Antibiotics) [Sulfa (Sulfonamides)] ibuprofen [From Motrin] AdvReac Mild STOMACH Verified 03/20/24 16:27 UPSET, Rectal bleeding Review of Systems 2 Review of Systems: Constitutional: No fever, chills, fatigue, night sweats, weight changes ENT/Mouth: No ear pain, hearing loss, nasal congestion, sinus pain, rhinorrhea, sore throat Eyes: No eye pain, swelling, redness, vision changes, discharge Cardio: No chest pain, palpitations, HACKETT, orthopnea, peripheral edema Pulm: No SOB, cough, sputum, wheezing, dyspnea, hemoptysis GI: No nausea, vomiting, hematemesis, abdominal pain, diarrhea, constipation, hematochezia, melena : No irregular bleeding, dysuria, frequency, urgency, hesitancy, hematuria, flank pain, urinary flow changes, urinary incontinence or retention MSK: No back pain, neck pain, joint pain, myalgias, +L elbow pain, +b/l knee pain Skin: No lesions, rashes Neuro: No weakness, numbness, paresthesias, LOC, dizziness, +headache Psych: No anxiety/panic, depression, SI/HI, AH/VH All other systems reviewed and are negative. [facility] Past Medical History Attestation statement: The following information was validated with the patient. Source: old records reviewed and nursing notes reviewed Medical History ESRD needing dialysis Chronic kidney disease requiring chronic dialysis Compression fx, lumbar spine ESRD (end stage renal disease) CKD (chronic kidney disease) stage 4, GFR 15-29 ml/min Metabolic acidosis Hyperkalemia FLORECITA (acute kidney injury) Anemia CHF (congestive heart failure) Headache Hypertensive urgency CKD (chronic kidney disease) Anxiety and depression Hiatal hernia Chronic anemia Hyperlipidemia Back pain Osteoarthritis Anemia COPD (chronic obstructive pulmonary disease) GERD (gastroesophageal reflux disease) Asthma Hypertension Surgical History Hx of breast biopsy History of esophagogastroduodenoscopy (EGD) Hx of colonoscopy History of left-sided carotid endarterectomy History of total right hip arthroplasty History of open reduction and internal fixation (ORIF) procedure History of cholecystectomy H/O of rectopexy History of bowel resection H/O: hysterectomy Social History Social History Household Members: Children Household Members Other:: DAUGHTER LAURECE Housing: Apartment Do you presently have visiting nurse or other home services: Yes Unable to assess alcohol history related to: Unknown Alcohol intake: current Alcohol intake frequency: holidays/special occasions only Comment: tylenol 325mg po given & warm blanket, layed on left side Patient Tobacco Use Status: Former Tobacco user Quit Date: 12 YEARS AGO Tobacco use type: Cigarette Years Smoked: 20 Smoked in Last 30 Days: No e-Cigarette/Vaping Use: Never Used Second Hand Smoke Exposure: No Use of substances other than those prescribed or required for medical reasons: No Substance Use Type: Marijuana Advance Directives: Yes Advance Directives on File: Yes Advance Directives Date on File: 09/04/20 Do you have a plan to hurt others: No Plan service: No Current occupational status: retired Physical Exam 2 Vital Signs: Vital Signs: Last Vital Signs Temp 98.2 F 03/20/24 21:48 Pulse 71 03/21/24 01:59 Resp 18 03/21/24 01:59 BP 150/76 H 03/21/24 01:59 Pulse Ox 93 03/21/24 01:59 O2 Del Method Room Air 03/21/24 01:59 BMI result Body Mass Index 16.8 Patient hypotensive at 95/53. Vitals otherwise WNL Const: Other: Irritated, yelling for pain medication General: comfortable and no acute distress Orientation/consciousness: p atient oriented x3 Limitations: no limitations HEENT: Head: Yes normal to inspection, Yes No palpable skull fracture present, Yes normocephalic, Yes atraumatic, No Villafana's sign, No hematoma, No raccoon eyes and No periorbital ecchymosis Eyes: General: appearance normal, both eyes and all related structures C onjunctivae: conjunctivae normal Sclerae: sclerae normal Pupils: Equal, round and reactive pupils present Neck: Other: + c collar in place. post-removal, no mi dline c spine tenderness or step off deformity. Neck: Yes normal visual inspection and Yes full ROM Chest: Chest palpation & inspection: normal inspection of the chest, normal palpation of entire chest wall, no crepitus and no tenderness Resp: Effort & Inspection: normal respiratory effort and able to speak in complete sentences Auscultation: clear to auscultation bilaterally Cardio: Rate: regular rate Rhythm: regular rhythm GI: Inspection: Yes normal to inspection and No abdominal wall ecchymosis P alpation (GI): Soft to palpation, nontender and no guarding Back/Spine/Pelvis: Other: No midline spinous tenderness or step off deformity. No paraspinal muscle tenderness. Skin: General skin exam: no rashes or lesions noted Neuro: General: patient oriented x3, gait normal, tone normal, moves all extremities and no focal motor deficits Cranial nerves: Yes Equal, round and reactive pupils present Coordination: [id number]-zo-azxc test normal, wajq-dw-nkts test normal and Normal rapid alternating movements of the distal upper extremity present (Neuro) Pupils: Normal pupillary reactivity/response: bilateral Extrem: General: Yes normal to inspection Course Course Course Narrative: 1837-- CBC without leukocytosis or left shift. Chronic anemia likely due to ESRD. H&H somewhat worse when compared to priors at 8.3/26.1 chemistry without acute electrolyte abnormality requiring intervention. Elevated BUN and creatinine secondary to ESRD. transaminitis. Troponin elevated to 46.4 > likely secondary to CKD however will repeat for delta. Unlikely ACS. EKG showing normal sinus rhythm. No acute ischemic changes or ST elevations noted. BP soft at 95/53 > 2L IVF ordered. at this time, patient likely dizzy due to hypotension. > awaiting imaging > patient screaming at myself and nursing staff for pain medication. [facility] takes [facility]ocet PO at home. a dose of oxy was ordered. patient refusing. I asked her why she cannot take a pill if she takes this at home, she tells me she cannot keep PO medication down because I am vomiting . Patient is not actively vomiting and has had no witnessed episodes of vomiting in ED. continues to refuse PO pain medication. she tells me the doctor in the elevator told me I can only get IV pain medication . patient has already received zofran for nausea. morphine ordered after multiple attempts to give PO meds with patient yelling at staff. 2019-- patient continuing to berate staff for pain medication. states morphine did nothing for her. she is sitting up in bed comfortably in no acute distress. i offered her the oxycodone I ordered earlier. continues to tell me she cannot take it because she is throwing up. Neither I nor staff have witnessed patient vomiting. emesis bag at bedside empty. after further discussion, patient agreeable to try taking the oxycodone. 2036-- CT head/brain without bleed or other intracranial pathology. CT C-spine without fracture or subluxation. C collar removed. RN and I watched patient spit oxycodone tablet out onto the floor. Continues to scream at both me and RN. morphine ordered. awaiting imaging. 2329-- x-ray of left elbow without fracture or effusion. Chest x-ray unremarkable. Left knee showing severe degeneration of patellofemoral joint with small joint effusion. Right knee without acute deformity or effusion. > discussed all results with patient. she is stable for discharge at this time. her blood pressure has improved. she is no longer symptomatic. 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 Medications Administered Discontinued Medications Generic Name Dose Route Start Last Admin Trade Name Freq PRN Reason Stop Dose Admin Sodium Chloride 1,000 mls @ 999 mls/hr 03/20/24 17:00 03/20/24 18:25 Ns IV 03/20/24 18:00 Infused .Q1H1M TONIO Infusion Sodium Chloride 1,000 mls @ 999 mls/hr 03/20/24 17:30 03/20/24 18:41 Ns IV 03/20/24 18:30 Infused .Q1H1M TONIO Infusion Morphine Sulfate 2 mg 03/20/24 18:24 03/20/24 18:36 Morphine Sulfate 2 Mg/Ml Cartridge IVPUSH 03/20/24 18:25 2 mg ONCE ONE Administration Protocol Morphine Sulfate 1 mg 03/20/24 20:36 03/20/24 20:46 Morphine Sulfate 2 Mg/Ml Cartridge IVPUSH 03/20/24 20:37 1 mg ONCE ONE Administration Protocol Ondansetron HCl 4 mg 03/20/24 17:17 03/20/24 17:33 Ondansetron Hcl 4 Mg/2 Ml Vial IVPUSH 03/20/24 17:18 4 mg ONCE ONE Administration Oxycodone HCl 10 mg 03/20/24 16:48 03/20/24 17:15 Oxycodone Hcl Immed Release 5 Mg Tablet PO 03/20/24 16:49 Not Given ONCE ONE Oxycodone HCl 10 mg 03/20/24 20:25 03/20/24 20:36 Oxycodone Hcl Immed Release 5 Mg Tablet PO 03/20/24 20:26 Not Given ONCE ONE Oxycodone HCl 5 mg 03/21/24 01:33 03/21/24 02:11 Oxycodone Hcl Immed Release 5 Mg Tablet PO 03/21/24 01:34 5 mg ONCE ONE Administration Medical Decision Making Medical Decision Making MDM Narrative: 83 year old female with pmhx significant for ESRD on dialysis, HTN, HDL, CHF, anemia, COPD, asthma, GERD, hiatal hernia, anxiety, and depression presents to the ED today via EMS for evaluation of unwitnessed fall occurring prior to arrival in ED. Patient hypotensive to 95/53. Vitals otherwise WNL. She is nontoxic-appearing. Visibly agitated, yelling for pain medication. Presents in cervical collar. No palpable skull fracture. No enid orbital ecchymoses, no villafana sign. Exam is nonfocal. On removal of C-collar, no cervical midline spinous tenderness or step-off deformity. Ambulating with steady gait to the bathroom. Abdomen is soft, ND/NT. No abdominal ecchymosis. Extremities wnl. Differential diagnosis includes contusion, concussion. Lower suspicion for ICH, CVA/TIA. Plan for labs, UA, imaging, trop, EKG, and re-evaluation. Differential Diagnosis Differential Diagnoses: The differential diagnosis associated with the presentation includes as above. Admission/Observation Consideration of admission/observation: Escalation of care including admission/observation considered Admission considered on presentation Lab Data MDM Lab Attestation statement: I reviewed the patient's lab results. As above 03/20/24 17:08 03/20/24 17:08 Labs: Lab Results 03/20/24 03/20/24 Range/Units 17:08 21:44 WBC 9.7 (4.8-10.8) X10*3/uL RBC 2.68 L (4.20-5.50) X10*6/uL Hgb 8.3 L (12.0-16.0) g/dl Hct 26.1 L (37.0-47.0) % MCV 97.4 (80.0-98.0) fL MCH 31.0 (27.0-33.0) pg MCHC 31.8 (31.0-35.0) g/dl RDW 16.8 H (11.0-16.0) % Plt Count 520 H (160-400) X10*3/uL MPV 10.8 (9.4-12.3) fL Immature Gran % (Auto) 2.2 H (0.0-0.4) % Neut % (Auto) 68.6 (45-73) % Lymph % (Auto) 20.9 (20-40) % [place] % (Auto) 4.7 (2-11) % Eos % (Auto) 2.3 (0-4) % Baso % (Auto) 1.3 (0-2) % Lymph # (Auto) 2.0 (1.2-4.9) X10*3/uL [place] # (Auto) 0.5 (0.1-1.2) X10*3/uL Eos # (Auto) 0.2 (0.0-0.4) X10*3/uL Baso # (Auto) 0.1 (0.0-0.2) X10*3/uL Abs Immat Gran (auto) 0.21 H (0.00-0.03) X10*3/uL Absolute Neuts (auto) 6.6 (2.0-8.3) x10*3/uL Absolute Nucleated RBC 0.040 H (0.0-0.012) X10*3/uL Nucleated RBC % (auto) 0.4 H (0.0-0.2) /100WBC Sodium 142 (135-145) mmol/L Potassium 4.9 (3.3-5.1) mmol/L Chloride 95 L (96-108) mmol/L Carbon Dioxide 33 H (22-29) mmol/L Anion Gap 19 (12-20) BUN 36 H (9-16) mg/dL Creatinine 3.50 H (0.5-1.4) mg/dL Estim Creat Clear Calc 8.3 Estimated GFR 12 Random Glucose 78 (60-115) mg/dL Calcium 9.4 (8.4-10.2) mg/dL Magnesium 2.2 (1.6-2.6) mg/dL Total Bilirubin 0.4 (0.0-1.0) mg/dL AST 71 H (5-31) U/L ALT 70 H (0-31) U/L Alkaline Phosphatase 164 H (39-117) U/L Total Creatine Kinase 63 (26-140) U/L Troponin I High Sens 46.4 H D 37.1 H (<3.5-17.0) ng/L Total Protein 7.8 (6.5-8.0) g/dL Albumin 3.4 L (3.5-5.0) g/dL Lipase 55 (8-78) U/L Independent Interpretation I performed an independent interpretation of an: EKG, Plain X-Ray and CT Scan Interpretation: EKG showing normal sinus rhythm with a rate of 78 beats per minute, QT 398, QTC 453, no acute ischemic changes or ST elevations. Chest xray without infiltrate or consolidation to suggest pneumonia, agree with radiologist's interpretation. XR bilateral knees without acute fracture, agree with radiologist's interpretation. XR left elbow without fracture, agree with radiologist's interpretation. CT head/brain without bleed or skull fracture, agree with radiologist's interpretation. CT cervical spine without fracture or subluxation, agree with radiologist's interpretation. Radiology Impression Discussion of test interpretation with radiology: I have reviewed the radiologist's reading. Radiologist Impression: EXAM: CT scan of the head and cervical spine. INDICATION: Reason for Exam fall +head strike TECHNIQUE: A noncontrast CT scan was performed from the skull base to the vertex. A noncontrast CT scan of the cervical spine was performed from the base of the skull through T1 at 2.5 mm and 1.25 mm collimation. Coronal and sagittal reformats were obtained at the acquisition workstation. This CT examination was performed using dose optimization techniques as appropriate, variously including the following: *Automated exposure control *Adjustment of mA and/or kV according to patient size (this includes techniques or standardized protocols for targeted exams where dose is matched to indication/reason for exam; i.e. extremities or head) *Use of iterative reconstruction technique DLP: 573 and 240 mGy-cm COMPARISON: 12/02/2023 FINDINGS: Head: There is no evidence of acute intracranial hemorrhage or territorial infarction. South-white matter differentiation is preserved. No abnormal mass effect or midline shift. No extra-axial fluid collections. No abnormal attenuation is demonstrated within the brain parenchyma. Scattered periventricular and deep white matter hypodensities consistent with microangiopathy. The ventricles and sulcal spaces are proportional without hydrocephalus. Proportional prominence of the ventricles and sulcal spaces. No acute osseous or soft tissue abnormalities. The mastoid air cells and visualized portions of the paranasal sinuses are well aerated. Cervical Spine: Postsurgical changes with intact anterior interbody fusion changes C3-C4. No evidence for hardware failure. Severe degeneration of the remainder the mid and lower cervical disc spaces without deformity acutely. Posterior elements appear intact. Severe atherosclerosis. The atlantooccipital and atlantoaxial articulations remain well aligned. Straightening of the normal cervical lordosis. Otherwise, there is anatomic alignment of the vertebral bodies and posterior elements. No evidence of acute fracture or subluxation. There is no prevertebral soft tissue swelling. The thyroid gland and remaining cervical soft tissues are normal in appearance. The lung apices demonstrate no abnormalities. Assess central line partially imaged. CT/CT head/brain/ cervical spine wo IV con IMPRESSION: No acute intracranial pathology. No acute fracture subluxation cervical spine. Independent Historian Clinical information obtained from an independent historian. History obtained from or confirmed by: EMS External Record Review External record reviewed: Inpatient record, Office record, Outpatient record, Prior outpatient labs, Prior outpatient radiology, Primary care record and Outside ED record Prescription Management I considered prescription management with: Pain Medication Chronic Conditions Patient?s care impacted by: Other (chronic pain) Social Determinants Patient?s care significantly limited by Social Determinants of Health including: Other Social Determinant of Health Critical Care Time Critical Care Time Critical Care Time: Yes Total Critical Care Time: 60 Attestation: Critical care time in the amount of 60 minutes has been provided to the patient in terms of direct patient care, frequent reevaluation, review and interpretation of medical data and results, and management of potentially life- threatening conditions. This is all outside of any medical procedures. Discharge Plan Discharge Clinical Impression: Pre-syncope Patient Disposition: Home, Self-Care Additional Instructions: Your lab workup today is reassuring. The CT of your head/brain does not show bleed. The CT of your neck does not show fracture. The x-rays of your knees and left elbow do not show fracture. You received 2 doses of morphine in ED today for pain control along with IV fluids. Continue all home medications as prescribed. Follow up with PCP as needed. Return with new or worsening symptoms. Prescriptions: No Action montelukast 10 mg tablet 10 mg PO BEDTIME albuterol sulfate [ProAir HFA] 90 mcg/actuation Hfa Aerosol Inhaler 2 puff INHALATION Q6H PRN (Reason: Shortness Of Breath) lorazepam 0.5 mg Tablet 0.5 mg PO BID PRN (Reason: Anxiety) pantoprazole 40 mg Tablet,Delayed Release (Dr/Ec) 40 mg PO DAILY fluoxetine 40 mg Capsule 40 mg PO QAM atorvastatin 40 mg tablet 40 mg PO DAILY cetirizine 10 mg Tablet 10 mg PO DAILY mjxldyhgwc-xceuhfqbawkfv-ssqg 50-325-40 mg tablet 1 tab PO Q12H PRN (Reason: Headache) oxycodone-acetaminophen 5-325 mg tablet 1 tab PO Q8H PRN (Reason: Pain, Moderate) Qty: 10 0RF lisinopril 10 mg tablet 10 mg PO BEDTIME diclofenac sodium 1 % gel 4 g topical TID PRN (Reason: Pain) sevelamer carbonate 800 mg tablet 800 mg PO TIDWM cholecalciferol (vitamin D3) 1,250 mcg (50,000 unit) Tablet 1,250 mcg PO QMONTH ferrous gluconate 324 MG tablet 324 mg PO MOWEFR@0900 sennosides [senna] 8.6 mg Tablet 17.2 mg PO DAILY PRN (Reason: Constipation) gabapentin 100 mg capsule 100 mg PO BEDTIME albuterol sulfate 2.5 mg /3 mL (0.083 %) Solution For Nebulization 2.5 mg INHALATION BID calcium carbonate [Calcium Antacid] 200 mg calcium (500 mg) Tablet,Chewable 200 mg PO TID oxycodone-acetaminophen [Percocet] 5-325 mg tablet 1 tab PO Q6H PRN (Reason: pain) Qty: 20 0RF Rx Instructions: Partial Fill upon patient request. Print Language: Indian
[2024-03-20 17:32] LABS: Alanine Aminotransferase 70 U/L (0-31); Albumin Level 3.4 g/dL (3.5-5.0); Alkaline Phosphatase 164 U/L (39-117); Anion Gap 19 (12-20); Aspartate Amino Transferase 71 U/L (5-31); Bilirubin Total 0.4 mg/dL (0.0-1.0); Blood Urea Nitrogen 36 mg/dL (9-16); Calcium 9.4 mg/dL (8.4-10.2); Carbon Dioxide 33 mmol/L (22-29); Chloride 95 mmol/L (96-108); Creatinine Clr Calc Pharmacy 8.3; Estimated Glomerular Filt Rate 12; Glucose Random 78 mg/dL (60-115); Lipase 55 U/L (8-78); Magnesium 2.2 mg/dL (1.6-2.6); Potassium 4.9 mmol/L (3.3-5.1); Sodium 142 mmol/L (135-145); Total Protein 7.8 g/dL (6.5-8.0)
[2024-03-20] MEDS: ondansetron HCL 4 MG/2 ML VIAL IVPUSH (17:33)
--- NOTE | 2024-03-20 17:39 | PC.NURSE ---
pt refused PO Oxycodone, requesting IV narcotics. pt with hx of substance abuse. pt continues to yell and demand for IV narcotics for pain refusing her PO oxycodone
[2024-03-20 17:40] LABS: Troponin-I High Sensitivity 46.4 ng/L (<3.5-17.0)
[2024-03-20] MEDS: Morphine Sulfate 2 MG/ML CARTRIDGE IVPUSH (18:36)
--- NOTE | 2024-03-20 19:43 | PC.NURSE ---
pt called daughter, told her she is unhappy with the mistreatment here in the ED. this RN spoke with daughter. not sure what what mistreatment pt is referring to as this is the start of my shift. i reassured daughter that i have already been in pt's room a few times, assessed her pain and checked her comfort/concerns and helped dial the phone. she was friendly and cooperative to this administrative underwriter. pt was requesting more pain meds despite being medicated less that 30mins prior. i reassured pt that i will speak with the doctor, scans are still pending. will call the daughter with updates as she requested.
--- NOTE | 2024-03-20 20:17 | PC.NURSE ---
pt yelling out for the doctor, yelling for more pain medication. RN and provider at bedside. pt wants IV pain meds, PO oxycodone which she takes with good effect at home was offered by provider. pt agreed to take it but is unhappy with lack of IV meds
[2024-03-20] MEDS: Morphine Sulfate 2 MG/ML CARTRIDGE 1 MG IVPUSH (20:46)
[2024-03-20 21:48] VITALS: BP 148/78; PULSE 67; RESP 20; TEMP 36.8; O2SAT 94
--- NOTE | 2024-03-20 21:48 | PC.NURSE ---
C collar removed per provider
--- NOTE | 2024-03-20 21:49 | PC.NURSE ---
pt offered PO pain meds, provider and RN at bedside for nuclear medicine pet ct technologist. pt took pills and immediately spit them out at us.
[2024-03-20 22:11] LABS: Troponin-I High Sensitivity 37.1 ng/L (<3.5-17.0)
--- NOTE | 2024-03-20 23:37 | PC.NURSE ---
let message for daughter to p/u pt
--- NOTE | 2024-03-21 00:46 | PC.NURSE ---
attempt to reach daughter again, no answer
[2024-03-21 01:59] VITALS: BP 150/76; PULSE 71; RESP 18; O2SAT 93
[2024-03-21] MEDS: oxyCODONE HCl Immed Release 5 MG TABLET PO (02:11)
--- NOTE | 2024-03-21 03:18 | PC.NURSE ---
spoke with daughter, will come to p/u pt
[2024-03-21 03:46] VITALS: BP 150/62; PULSE 74; RESP 18; TEMP 36.6; O2SAT 94
[2024-03-21 04:01] VITALS: BP 150/62; PULSE 74; RESP 18; TEMP 36.6; O2SAT 94
== END 2024-03-21 04:01 | disposition home or self-care (01) ==
PROVIDERS: Physician Assistant Medical; Emergency Provider Internal Medicine
DX: R55 Syncope and collapse (principal); M25.562 Pain in left knee; M25.561 Pain in right knee; Z91.81 History of falling; E11.22 Type 2 diabetes mellitus with diabetic chronic kidney disease; I13.2 Hypertensive heart and chronic kidney disease with heart failure and with stage 5 chronic kidney disease, or end stage renal disease; I50.9 Heart failure, unspecified; N18.6 End stage renal disease; Z99.2 Dependence on renal dialysis; E78.5 Hyperlipidemia, unspecified; J44.9 Chronic obstructive pulmonary disease, unspecified; Z79.02 Long term (current) use of antithrombotics/antiplatelets; Z79.899 Other long term (current) drug therapy; Z87.891 Personal history of nicotine dependence; Z79.891 Long term (current) use of opiate analgesic
CPT/HCPCS: 36415; 70450; 71046; 72125; 73080; 73560; 80053; 82550; 83690; 83735; 84484; 85025; 93005; 96361; 96374; 96375; 96376; 99284; 99285; J2270; J2405

== ENCOUNTER → 2024-03-20 16:48 | Outpatient (BNV) | payer MEDICARE, SELFPAY | PROVIDERS: Emergency Provider Internal Medicine; Visit Provider Internal Medicine Cardiovascular Disease | DX: R55 Syncope and collapse (principal) | CPT/HCPCS: 93010 ==

== ENCOUNTER 2024-06-26 16:25 | Emergency (ER) | payer MEDICARE, SELFPAY ==
--- NOTE | ~2024-06-26 | XR_ITS ---
EXAMINATION: XR CHEST CLINICAL INFORMATION: Cough. COMPARISON: Chest radiograph 03/20/2024 TECHNIQUE: AP sitting view of the chest was obtained. FINDINGS: Right dialysis catheter extends to the right atrium. The cardiac silhouette is stable in size. The lungs are slightly hypoexpanded. Evidence of underlying emphysema. Worsening retrocardiac consolidation is seen at the left lung base. Streaky opacity persists at the right lung base. The upper lungs are clear. Vascular calcification is seen along the right axillary and subclavian artery. Evidence of prior cervical spine surgery with plate and screws partially seen. XR/XR chest 1V IMPRESSION: Worsening consolidation left retrocardiac region which may reflect pneumonia. Secretions and aspiration are in the differential diagnosis. Recommend follow-up to reevaluate. Electronically signed by: Brenton Castellano MD 06/26/2024 08:47 PM EDT
--- NOTE | ~2024-06-26 | XR_ITS ---
EXAMINATION: XR KNEE, LEFT CLINICAL INFORMATION: Pain no known injury. COMPARISON: 03/20/2024 TECHNIQUE: Four views of the left knee. FINDINGS: The bones are subjectively osteopenic. Alignment is normal. Severe narrowing of the patellofemoral joint with subchondral sclerosis is unchanged from prior. The medial and lateral joint spaces are maintained. Extensive chondrocalcinosis persists. A small knee effusion is present. Moderate vascular calcifications are again seen. XR/XR knee LT 3V IMPRESSION: Small knee effusion. Marked patellofemoral narrowing, unchanged. Extensive chondrocalcinosis unchanged no acute fracture is seen. Electronically signed by: Brenton Castellano MD 06/26/2024 08:50 PM EDT
--- NOTE | ~2024-06-26 | CT_ITS ---
EXAMINATION: CT HEAD WITHOUT IV CONTRAST CLINICAL INFORMATION: headache COMPARISON: CT head without contrast 03/20/2024 TECHNIQUE: Contiguous axial imaging was performed from the skull base to vertex without intravenous contrast. Sagittal and coronal reformatted images were obtained. This CT examination was performed using dose optimization techniques as appropriate, variously including the following: * Automated exposure control * Adjustment of mA and/or kV according to patient size (this includes techniques or standardized protocols for targeted exams where dose is matched to indication/reason for exam; i.e. extremities or head) Use of iterative reconstruction technique DLP: 590 mGy-cm FINDINGS: No acute osseous or soft tissue abnormality. The mastoid air cells and visualized portions of the paranasal sinuses are well aerated. There is no evidence of acute intracranial hemorrhage or territorial infarction. No abnormal mass effect or midline shift is seen. South to white matter differentiation is well preserved. No extra-axial fluid collections are identified. No hydrocephalus. No significant volume loss. Patchy periventricular and deep white matter hypoattenuation is consistent with mild small vessel ischemic changes. CT/CT head/brain wo IV con IMPRESSION: No acute intracranial abnormality including hemorrhage, mass effect, hydrocephalus, or acute territorial edematous infarction. Electronically signed by: Paulino Gilbert MD 06/26/2024 07:32 PM EDT
[2024-06-26 16:38] VITALS: BP 134/70; PULSE 68; O2SAT 94
[2024-06-26 16:41] VITALS: PULSE 80; RESP 18; TEMP 37.1; O2SAT 96; BMI 17.1
--- NOTE | 2024-06-26 16:59 | PC.NURSE ---
patient from home, called 911 due to someone trying to kill me PD called EMS to bring patient to hospital for further Eval, patient told EMS that she was having pain all over my body, not now but it will start hurting when i get to the hospital . patient alert to self and place, poor historian otherwise, per EMS patient with Alzheimers dementia at baseline, came willingly to hospital, patient stating to this RN you need to give me something for this pain when attempting to ask patient where she is having pain patient states all over, my head my knees my back my shoulder, all over asked patient if she is having this pain all of the time and she states yes always . patient becomes increasingly agitated when attempted to be redirected and asking questions. when asking patient if she feels safe at home patient states no i do not, someone there is trying to kill me when asking patient to elaborate and who she thinks is trying to hurt her patient states i dont know, how am i supposed to know that, i see them, they look at me like theyre going to kill me and then they disappear, how am i supposed to know who they are . patient pulling at medical equipment, tank charger made aware, attempted to tell patient that MD needs to see her before we medicate her, patient states no one has even seen me yet, rico been here for hours educated patient that she has not been here for more than 10 minutes and the doctor needs to assess. patient states they are giving me IV pain medications at home when asking patient who is giving her pain meds patient states the nurses at the hospital patient very poor historian. Sitter at bedside due to impulsiveness. awaiting MD mchugh.
--- NOTE | 2024-06-26 18:16 | ECG_ITS ---
Test Reason : PAIN Blood Pressure : / mmHG Vent. Rate : 069 BPM Atrial Rate : 069 BPM P-R Int : 156 ms QRS Dur : 078 ms QT Int : 402 ms P-R-T Axes : 075 036 061 degrees QTc Int : 430 ms Normal sinus rhythm Normal ECG When compared with ECG of 20-MAR-2024 17:09, No significant change was found Referred By: Paulino Gipson Electronically Signed By:VALDEMAR DELCID
--- NOTE | 2024-06-26 18:18 | ED.GENADULT ---
HPI - General Adult General Chief complaint: General Medical Stated complaint: PSYCH PT. STATES MAN IS COMING AFTER HER,BODY PAIN Time Seen by Provider: 06/26/24 17:34 Source: patient, RN notes reviewed and old records reviewed Mode of arrival: EMS Limitations: other (Very poor historian) History of Present Illness ED Provider: Brandan HPI narrative: 83-year-old female with past medical history significant for dementia, chronic kidney disease on dialysis, Friday, , Friday, congestive heart failure, hypertension, anxiety and depression, osteoarthritis presents for evaluation of ?pain all over. ? The patient has slough called 911 stating that somebody was trying to kill her When the police arrived they called for EMS backup. When EMS arrived the patient reports them that she called 911 because ?my entire body hurts. ? The patient states that she lives with her sister who is ?not give me my medication or enough food. ? Patient states that she last went to dialysis 2 days ago She states that she has a headache, pain in her arms, her legs, specifically her left knee, her abdomen, her chest The patient also reports that she is hungry she does state that she does not feel safe at home She states that she needs ?pain medication in my veins. ? I do not want any pills because they do not work. ? Related Data Home Medications ?Medication ?Instructions ?Recorded ?Confirmed montelukast 10 mg tablet 10 mg PO BEDTIME 07/28/20 06/27/24 fluoxetine 40 mg capsule 40 mg PO QAM 08/01/20 06/27/24 lorazepam 0.5 mg tablet 0.5 mg PO BID PRN Anxiety 08/01/20 06/27/24 pantoprazole 40 mg tablet,delayed 40 mg PO DAILY 08/01/20 06/27/24 release atorvastatin 40 mg tablet 40 mg PO DAILY 06/19/22 06/27/24 cetirizine 10 mg tablet 10 mg PO DAILY 06/19/22 06/27/24 mxdypqzqyr-uftyjnzkrgxiv-kjumrnul 1 tab PO Q12H PRN Headache 12/09/22 06/27/24 50 mg-325 mg-40 mg tablet lisinopril 10 mg tablet 10 mg PO BEDTIME 08/22/23 06/27/24 cholecalciferol (vitamin D3) 1,250 1,250 mcg PO QMONTH 09/25/23 06/27/24 mcg (50,000 unit) tablet ferrous gluconate 324 mg PO MOWEFR@0900 09/25/23 06/27/24 sennosides 8.6 mg tablet (senna) 17.2 mg PO DAILY PRN Constipation 09/25/23 06/27/24 sevelamer carbonate 800 mg tablet 800 mg PO TIDWM 09/25/23 06/27/24 gabapentin 100 mg capsule 100 mg PO BEDTIME PRN Pain 11/27/23 06/27/24 calcium carbonate (Calcium Antacid) 200 mg PO TID 03/05/24 06/27/24 oxycodone-acetaminophen 5 mg-325 1 tab PO Q6H pain 06/27/24 06/27/24 mg tablet (Percocet) Allergies Allergy/AdvReac Type Severity Reaction Status Date / Time codeine [Codeine] Allergy Mild RASH Verified 06/26/24 16:48 Sulfa (Sulfonamide Allergy Mild HIVES Verified 06/26/24 16:48 Antibiotics) [Sulfa (Sulfonamides)] ibuprofen [From Motrin] AdvReac Mild STOMACH Verified 06/26/24 16:48 UPSET, Rectal bleeding Review of Systems Constitutional: Constitutional: Reports body ache(s), Reports chills, Reports fatigue, Denies fever(s), Denies frequent falls, Reports headache(s) and Reports malaise ENT: Denies vertigo, Denies dizziness and Reports headache(s) Cardiovascular: Cardiovascular: Reports chest pain and Denies dyspnea Respiratory: Respiratory: Denies cough and Denies dyspnea Gastrointestinal: Gastrointestinal: Reports abdominal pain, Denies nausea and Denies vomiting Musculoskeletal: Musculoskeletal: Reports back pain, Reports myalgias, Reports arthralgias and Reports joint swelling (left knee) Integumentary/Breasts: Skin/Breast: Denies rash Neurologic: Denies vertigo, Denies dizziness, Denies frequent falls and Reports headache(s) Endocrine: Endocrine: Reports fatigue PMFSH Past Medical History Medical History ESRD needing dialysis Chronic kidney disease requiring chronic dialysis Compression fx, lumbar spine ESRD (end stage renal disease) CKD (chronic kidney disease) stage 4, GFR 15-29 ml/min Metabolic acidosis Hyperkalemia FLORECITA (acute kidney injury) Anemia CHF (congestive heart failure) Headache Hypertensive urgency CKD (chronic kidney disease) Anxiety and depression Hiatal hernia Chronic anemia Hyperlipidemia Back pain Osteoarthritis Anemia COPD (chronic obstructive pulmonary disease) GERD (gastroesophageal reflux disease) Asthma Hypertension Surgical History Hx of breast biopsy History of esophagogastroduodenoscopy (EGD) Hx of colonoscopy History of left-sided carotid endarterectomy History of total right hip arthroplasty History of open reduction and internal fixation (ORIF) procedure History of cholecystectomy H/O of rectopexy History of bowel resection H/O: hysterectomy Social History Social History Household Members: Children Household Members Other:: DAUGHTER LAURECE Housing: Apartment Do you presently have visiting nurse or other home services: Yes Unable to assess alcohol history related to: Unknown Alcohol intake: current Alcohol intake frequency: holidays/special occasions only Comment: tylenol 325mg po given & warm blanket, layed on left side Patient Tobacco Use Status: Former Tobacco user Tobacco use type: Cigarette Years Smoked: 20 Smoked in Last 30 Days: No e-Cigarette/Vaping Use: Never Used Second Hand Smoke Exposure: No Use of substances other than those prescribed or required for medical reasons: No Substance Use Type: Marijuana Advance Directives: Yes Advance Directives on File: Yes Advance Directives Date on File: 09/04/20 Do you have a plan to hurt others: No Plan service: No Current occupational status: retired Physical Exam ED Vital Signs: Vital Signs - 24 hr 06/27/24 14:00 06/27/24 17:10 06/27/24 17:54 Temperature 97.8 F 99.9 F Pulse Rate 96 72 Respiratory Rate 16 18 Blood Pressure 143/69 H 170/82 H Pulse Oximetry 92 90 L 95 Oxygen Delivery Method Room Air Nasal Cannula Nasal Cannula Oxygen Flow Rate 2 2 06/27/24 21:13 06/27/24 22:02 06/28/24 05:50 Temperature 97.8 F 97.8 F Pulse Rate 77 64 Respiratory Rate 17 18 Blood Pressure 152/79 H 152/79 H 91/63 Pulse Oximetry 97 97 Oxygen Delivery Method Nasal Cannula Room Air Oxygen Flow Rate 2 BMI result Body Mass Index 17.1 Const General: healthy appearing, comfortable, no acute distress, alert and awake [facility] Head: Yes normocephalic and Yes atraumatic Eyes Eyelids: Yes eyelids normal Conjunctivae: conjunctivae normal Sclerae: sclerae normal Corneas: corneas normal Pupils: Equal, round and reactive pupils present EOM: EOMs intact bilaterally Neck Neck: Yes full ROM Resp Effort & Inspection: normal respiratory effort, able to speak in complete sentences, no audible wheezes and not labored Auscultation: clear to auscultation bilaterally Cardio Rate: regular rate Rhythm: regular rhythm GI Other: The abdomen is soft, nondistended but with diffuse tenderness Inspection: No distended Palpation (GI): Soft to palpation, not firm, no guarding and not rigid Auscultation: normoactive bowel sounds Skin General skin exam: elasticity normal Neuro Cranial nerves: Yes Equal, round and reactive pupils present and Yes Bilaterally intact EOM present Extrem Other: The left knee is edematous compared to the right. Tenderness to palpation of the left knee. Course Reevaluation(s) Reevaluation #1: Patient appears comfortable, she is mildly hypertensive, her medical workup is unyielding. She is not hypovolemia, she is not hyperkalemic. She will eventually need dialysis. She will possibly require a renal consult if she stays here for a long period of time. At the time, she has no indication at all for emergent dialysis. She will be medically cleared for care team evaluation,. Again, if she becomes an extended bed search for any reason she may require admission for dialysis as this can not be done from the ER setting Time: 01:48 Reevaluation #2: Dr. Dyson's progress note: VSS, Care team evaluation is appreciated recommended case management evaluation, case management also recommended PT evaluation consult was placed in the chart, UTI will start on cefuroxime. no indication for urgent or emergent dialysis. Time: 11:53 Reevaluation #3: 06/28/24--1234-- Physician observation completed. Patient was cleared by Physical therapy and case management to return home with daughter with resumption of family support. Patient does not meet medical necessity for hospitalization. Patient is due for dialysis tomorrow, family confirmed they can get patient to dialysis. Patient is at baseline mental status at present, with baseline dementia. Currently being treated with cefuroxime for UTI. Pneumonia also noted on x-ray, will add doxycycline to her regimen. Final disposition discussed with patient and family who verbalized understanding and are in agreement. Medications Administered Generic Name Dose Route Start Last Admin Trade Name Amairani PRN Reason Stop Dose Admin Atorvastatin Calcium 40 mg 06/27/24 11:30 06/28/24 08:39 Atorvastatin Calcium 40 Mg Tablet PO 40 mg DAILY TONIO Administration Cefuroxime Axetil 500 mg 06/27/24 15:00 06/28/24 08:39 Cefuroxime Axetil 500 Mg Tablet PO 500 mg BID TONIO Administration Ferrous Sulfate 324 mg 06/28/24 09:00 06/28/24 08:39 Ferrous Sulfate 324 Mg Tablet. PO 324 mg MOWEFR@0900 TONIO Administration Fluoxetine HCl 40 mg 06/27/24 13:15 06/28/24 08:38 Fluoxetine Hcl 20 Mg Capsule PO 40 mg DAILY TONIO Administration Lisinopril 10 mg 06/27/24 21:00 06/27/24 22:02 Lisinopril 10 Mg Tablet PO 10 mg BEDTIME TONIO Administration Protocol Loratadine 10 mg 06/27/24 11:30 06/28/24 08:38 Loratadine 10 Mg Tablet PO 10 mg DAILY TONIO Administration Montelukast Sodium 10 mg 06/27/24 21:00 06/27/24 22:02 Montelukast Sodium 10 Mg Tablet PO 10 mg BEDTIME TONIO Administration Omeprazole 20 mg 06/27/24 13:15 06/28/24 05:52 Omeprazole 20 Mg Capsule. PO 20 mg DAILY@0630 TONIO Administration Oxycodone HCl 5 mg 06/27/24 01:10 06/28/24 08:39 Oxycodone Hcl Immed Release 5 Mg Tablet PO 5 mg Q6H PRN Administration Pain, Severe (Pain Scale 7-10) Sevelamer Carbonate 800 mg 06/27/24 12:00 06/28/24 11:46 Sevelamer Carbonate Tablet 800 Mg Tablet PO 800 mg TIDWM TONIO Administration Discontinued Medications Generic Name Dose Route Start Last Admin Trade Name Amairani PRN Reason Stop Dose Admin Morphine Sulfate 4 mg 06/26/24 18:15 06/26/24 18:26 Morphine Sulfate 4 Mg/Ml Cartridge IM 06/26/24 18:16 4 mg ONCE ONE Administration Protocol Morphine Sulfate 4 mg 06/27/24 01:09 06/27/24 01:32 Morphine Sulfate 4 Mg/Ml Cartridge IM 06/27/24 01:10 4 mg ONCE ONE Administration Protocol Ondansetron HCl 4 mg 06/26/24 18:15 06/26/24 18:26 Ondansetron Odt 4 Mg Tab.Dariana SAAVEDRAINGU 06/26/24 18:16 4 mg ONCE ONE Administration Medical Decision Making Medical Decision Making [facility] Narrative: 83-year-old female with past medical history as documented above presents for evaluation of ?pain all over. ? She reports that she fell 3 days ago, but again she is a very poor historian, it is unclear if this is true or not. Given the reported fall and headache we will get a CT scan of the brain, we had an x-ray of the left knee that appear the down as compared to the right. Plan for basic labs, urinalysis if the patient can provide wound, however she is a dialysis patient. We will treat her pain with IM morphine. If medically cleared, the patient will likely require a psych eval given the reports of not feeling safe at home and ?a man trying to kill me. ? Differential Diagnosis Differential Diagnoses: The differential diagnosis associated with the presentation includes Failure to thrive Dementia Acute delirium Psychosis UTI Pneumonia Arthritis Intracranial hemorrhage Uremia Lab Data [facility] Lab Attestation statement: I reviewed the patient's lab results. Patient has no leukocytosis. She has a mild anemia that is consistent with or slightly improved compared to her baseline. Chemistries are significant for a BUN is 61 with a creatinine of 8.17. The patient reports that she has not been to dialysis since , 2 days ago. She was due today but ultimately she gets. Her potassium is normal at 4.8. Her troponin is slightly elevated 20.5, but this is consistent with where she has been in the past. Given that she is complaining of chest pain we will repeat the troponin 06/26/24 18:36 06/26/24 18:36 Labs: Lab Results 06/26/24 06/26/24 06/26/24 Range/Units 18:36 19:31 21:40 WBC 10.1 (4.8-10.8) X10*3/uL RBC 3.37 L D (4.20-5.50) X10*6/uL Hgb 10.5 L D (12.0-16.0) g/dl Hct 32.1 L D (37.0-47.0) % MCV 95.3 (80.0-98.0) fL MCH 31.2 (27.0-33.0) pg MCHC 32.7 (31.0-35.0) g/dl RDW 13.4 (11.0-16.0) % Plt Count 551 H (160-400) X10*3/uL MPV 9.8 (9.4-12.3) fL Immature Gran % (Auto) 0.9 H (0.0-0.4) % Neut % (Auto) 85.9 H (45-73) % Lymph % (Auto) 9.5 L (20-40) % [place] % (Auto) 0.8 L (2-11) % Eos % (Auto) 1.7 (0-4) % Baso % (Auto) 1.2 (0-2) % Lymph # (Auto) 1.0 L (1.2-4.9) X10*3/uL [place] # (Auto) 0.1 (0.1-1.2) X10*3/uL Eos # (Auto) 0.2 (0.0-0.4) X10*3/uL Baso # (Auto) 0.1 (0.0-0.2) X10*3/uL Abs Immat Gran (auto) 0.09 H (0.00-0.03) X10*3/uL Absolute Neuts (auto) 8.7 H (2.0-8.3) x10*3/uL Absolute Nucleated RBC 0.000 (0.0-0.012) X10*3/uL Nucleated RBC % (auto) 0.0 (0.0-0.2) /100WBC Smear Tech's Comments VERIFIED Sodium 142 (135-145) mmol/L Potassium 4.8 (3.3-5.1) mmol/L Chloride 98 (96-108) mmol/L Carbon Dioxide 23 (22-29) mmol/L Anion Gap 26 H (12-20) BUN 61 H (9-16) mg/dL Creatinine 8.17 H* (0.5-1.4) mg/dL Estim Creat Clear Calc 3.7 Estimated GFR 5 Random Glucose 80 (60-115) mg/dL Calcium 8.8 D (8.4-10.2) mg/dL Total Bilirubin 0.4 (0.0-1.0) mg/dL AST 16 (5-31) U/L ALT 14 (0-31) U/L Alkaline Phosphatase 114 (39-117) U/L Troponin I High Sens 20.5 H 21.1 H (<3.5-17.0) ng/L Total Protein 7.3 (6.5-8.0) g/dL Albumin 3.4 L (3.5-5.0) g/dL Lipase 134 H (8-78) U/L Urine Color Yellow Urine Appearance Cloudy Urine pH 7.5 (5.0-9.0) Ur Specific Center 1.020 (1.005-1.025) Urine Protein 100 (2+) H (Neg-Trace) mg/dL Urine Glucose (UA) Negative (Negative) mg/dL Urine Ketones Negative (Negative) mg/dL Urine Blood Negative (Negative) Urine Nitrite Negative (Negative) Ur Leukocyte Esterase Moderate (2+) H (Negative) Urine RBC 0-2 (0-2) /HPF Urine WBC >50 H (0-5) /HPF Ur Squamous Epith Cells >20 (0-2) /HPF Urine Bacteria 4+ (None Seen) Hyaline Casts 0-2 (0-2) /LPF Urine Opiates Screen Not Detected (Not Detect) Ur Buprenorphine Scrn Not Detected (Not Detect) ng/mL Ur Oxycodone Screen Not Detected (Not Detect) ng/mL Urine Methadone Screen Not Detected (Not Detect) ng/mL Urine Fentanyl Screen Not Detected (Not Detect) Ur Barbiturates Screen POSITIVE H (Not Detect) Ur Phencyclidine Scrn Not Detected (Not Detect) Ur Amphetamines Screen Not Detected (Not Detect) U Benzodiazepines Scrn Not Detected (Not Detect) Urine Cocaine Screen Not Detected (Not Detect) U Marijuana (THC) Screen Not Detected (Not Detect) Ethyl Alcohol < 10 mg/dL Influenza Type A (PCR) NEGATIVE (Negative) Influenza Type B (PCR) NEGATIVE (Negative) RSV RNA Qual (PCR) NEGATIVE (Negative) SARS-CoV-2 RNA (RT-PCR) NEGATIVE (Negative) Independent Interpretation I performed an independent interpretation of an: EKG (Normal sinus rhythm with a rate of [address] segment changes) Discharge Plan Discharge Clinical Impression: Arthralgia, End stage renal disease on dialysis, Acute UTI Patient Disposition: Still a Patient Prescriptions: No Action montelukast 10 mg tablet 10 mg PO BEDTIME lorazepam 0.5 mg Tablet 0.5 mg PO BID PRN (Reason: Anxiety) pantoprazole 40 mg Tablet,Delayed Release (Dr/Ec) 40 mg PO DAILY fluoxetine 40 mg Capsule 40 mg PO QAM atorvastatin 40 mg tablet 40 mg PO DAILY cetirizine 10 mg Tablet 10 mg PO DAILY lyqegesljc-xgagyljpncdki-gwxd 50-325-40 mg tablet 1 tab PO Q12H PRN (Reason: Headache) lisinopril 10 mg tablet 10 mg PO BEDTIME sevelamer carbonate 800 mg tablet 800 mg PO TIDWM cholecalciferol (vitamin D3) 1,250 mcg (50,000 unit) Tablet 1,250 mcg PO QMONTH ferrous gluconate 324 MG tablet 324 mg PO MOWEFR@0900 sennosides [senna] 8.6 mg Tablet 17.2 mg PO DAILY PRN (Reason: Constipation) gabapentin 100 mg capsule 100 mg PO BEDTIME PRN (Reason: Pain) calcium carbonate [Calcium Antacid] 200 mg calcium (500 mg) Tablet,Chewable 200 mg PO TID oxycodone-acetaminophen [Percocet] 5-325 mg tablet 1 tab PO Q6H Rx Instructions: Partial Fill upon patient request. Print Language: Wallisian
[2024-06-26] MEDS: Morphine Sulfate 4 MG/ML CARTRIDGE IM (18:26)
[2024-06-26] MEDS: Ondansetron ODT 4 MG TAB.RAPDIS TRANSLINGU (18:26)
--- NOTE | 2024-06-26 18:31 | PC.NURSE ---
into room to medicate patient, patient states to this RN, thank god your here, that other nurse is trying to kill me asked patient what other nurse she is speaking about, patient unable to answer, just repeating shes just trying to kill me educated patient that she has a sitter at her bed side to keep her safe and no one will hurt her while she is in the hospital. all safety maintained, patient medicated per DEC, veterinary technician at bedside for EKG and phlebotomy
[2024-06-26 18:39] VITALS: BP 158/77; PULSE 68; RESP 18; TEMP 36.9; O2SAT 94
[2024-06-26 18:42] LABS: Basophils Absolute Auto 0.1 X10*3/uL (0.0-0.2); Basophils Percent Auto 1.2 % (0-2); Eosinophils Absolute Auto 0.2 X10*3/uL (0.0-0.4); Eosinophils Percent Auto 1.7 % (0-4); Hematocrit 32.1 % (37.0-47.0); Hemoglobin 10.5 g/dl (12.0-16.0); Imm Gran Abs Auto 0.09 X10*3/uL (0.00-0.03); Imm Gran Pct Auto 0.9 % (0.0-0.4); Lymphocytes Percent Auto 9.5 % (20-40); MANUAL DIFF FLAG SCAN; Mean Corpuscular HGB Conc 32.7 g/dl (31.0-35.0); Mean Corpuscular Hemoglobin 31.2 pg (27.0-33.0); Mean Corpuscular Volume 95.3 fL (80.0-98.0); Mean Platelet Volume 9.8 fL (9.4-12.3); Monocytes Absolute Auto 0.1 X10*3/uL (0.1-1.2); Monocytes Percent Auto 0.8 % (2-11); Neutrophils Absolute Auto 8.7 x10*3/uL (2.0-8.3); Neutrophils Percent Auto 85.9 % (45-73); Platelet Count 551 X10*3/uL (160-400); Red Blood Count 3.37 X10*6/uL (4.20-5.50); Red Cell Distribution Width 13.4 % (11.0-16.0); SCAN SMEAR FLAG 1; White Blood Count 10.1 X10*3/uL (4.8-10.8)
[2024-06-26 19:00] LABS: SLIDE REVIEW VERIFIED
[2024-06-26 19:03] LABS: Alanine Aminotransferase 14 U/L (0-31); Albumin Level 3.4 g/dL (3.5-5.0); Alkaline Phosphatase 114 U/L (39-117); Anion Gap 26 (12-20); Aspartate Amino Transferase 16 U/L (5-31); Bilirubin Total 0.4 mg/dL (0.0-1.0); Blood Urea Nitrogen 61 mg/dL (9-16); Calcium 8.8 mg/dL (8.4-10.2); Carbon Dioxide 23 mmol/L (22-29); Chloride 98 mmol/L (96-108); Creatinine Clr Calc Pharmacy 3.7; Estimated Glomerular Filt Rate 5; Glucose Random 80 mg/dL (60-115); Lipase 134 U/L (8-78); Potassium 4.8 mmol/L (3.3-5.1); Sodium 142 mmol/L (135-145); Total Protein 7.3 g/dL (6.5-8.0)
[2024-06-26 19:04] LABS: Troponin-I High Sensitivity 20.5 ng/L (<3.5-17.0)
[2024-06-26 19:17] LABS: Influenza A PCR NEGATIVE (Negative); Influenza B PCR NEGATIVE (Negative); Resp Syncy Virus RNA Qual PCR NEGATIVE (Negative); SARS COV2 PCR INHOUSE NEGATIVE (Negative)
--- NOTE | 2024-06-26 19:33 | PC.NURSE ---
Pt back from CT. Plan of care ongoing.
[2024-06-26 19:37] LABS: Ethanol < 10 mg/dL
[2024-06-26 19:39] LABS: Appearance Urine Cloudy; Color Urine Yellow; Glucose Urine UA Negative (Negative); Leukocyte Esterase Urine Moderate (2+) (Negative); Nitrite Urine Negative (Negative); PH 7.5 (5.0-9.0); UMIC TRIGGER UACC YES; Urine Blood Negative (Negative); Urine Ketones Negative (Negative); Urine Protein 100 (2+) mg/dL (Neg-Trace)
[2024-06-26 19:48] LABS: Bacteria Urine 4+ (None Seen); Hyaline Casts Urine 0-2 /LPF (0-2); RBC Urine 0-2 /HPF (0-2); Squamous Epithelial Cell Urine >20 /HPF (0-2); UACC Culture Trigger YES; WBC Urine >50 /HPF (0-5)
--- NOTE | 2024-06-26 20:16 | PC.NURSE ---
Pts daughter adinaece called requesting an update. Pts daughter reported she lives with pt and is her wound care coordinator. Daughter reports pt was taken to dialysis this am but did not receive dialysis due to increased ams and aggression towards staff. Next dialysis is scheduled for friday. Daughters name is Ander and can be reached @ [phone] Plan of care ongoing.
[2024-06-26 20:34] VITALS: BP 145/70; PULSE 68; RESP 16; TEMP 37.2; O2SAT 95
[2024-06-26 21:44] VITALS: BP 174/82; PULSE 81; RESP 15; TEMP 37.2; O2SAT 94
[2024-06-26 22:03] LABS: Troponin-I High Sensitivity 21.1 ng/L (<3.5-17.0)
--- NOTE | 2024-06-26 23:47 | PC.NURSE ---
this rn assumed care of pt, pt resting in stretcher, no acute distress noted. pt normal sinus on tele 80-83bpm.
[2024-06-27] VITALS (9 sets, daily range): BP systolic 143–170; BP diastolic 69–102; PULSE 72–100; RESP 15–18; TEMP 36.6–37.7; O2SAT 90–97
--- NOTE | 2024-06-27 01:08 | PC.NURSE ---
pt noted to be care team consult at this time. pt changed into green gown, belongings placed in [facility].
--- NOTE | 2024-06-27 01:31 | PC.NURSE ---
jaclyn acuña aware of pt blood pressure at this time, no new orders. pt medicated per dec for 10/10 body pain.
[2024-06-27] MEDS: Morphine Sulfate 4 MG/ML CARTRIDGE IM (01:32)
[2024-06-27 01:34] LABS: Amphetamine Screen Urine Not Detected (Not Detect); Barbiturates, Urine POSITIVE (Not Detect); Benzodiazepines Screen Urine Not Detected (Not Detect); Buprenorphine Scr Not Detected (Not Detect); Cannabinoid Screen Urine Not Detected (Not Detect); Cocaine Screen Urine Not Detected (Not Detect); Fentanyl, urine Not Detected (Not Detect); Methadone Screen, Urine Not Detected (Not Detect); Opiate Screen Urine Not Detected (Not Detect); Oxycodone Screen Urine Not Detected (Not Detect); Phencyclidine Screen Urine Not Detected (Not Detect)
--- NOTE | 2024-06-27 04:42 | MHC.EDTECH ---
pt belongings placed into decon with security per Rn request
[2024-06-27] MEDS: oxyCODONE HCl Immed Release 5 MG TABLET PO ×3 (06:39→22:06)
--- NOTE | 2024-06-27 06:48 | PC.NURSE ---
pt medicated per mar, tolerated well with water whole.
--- NOTE | 2024-06-27 06:48 | PC.NURSE ---
pt noted to have half sheet of medications with her, this RN attempted med req with supplied medications on list.
--- NOTE | 2024-06-27 10:08 | PC.NURSE ---
care team meeting with patient
--- NOTE | 2024-06-27 11:29 | MHC.CARE ---
Pt seen by CARE team, patient has history of dementia and behavioral issues due to progression of Alzheimers, dementia. Daughter reports patient has up coming appt with neurologist and will follow up with PCP to discuss getting Ativan scheduled instead of PRN. Patient referred to case management for review of in home services and discharge home. Daughter has declined SNF level of care currently and patient has declined inpatient level of care currently and requested discharge home.
--- NOTE | 2024-06-27 12:02 | MHC.CM.PN ---
CM RECEIVED ED CM CONSULT. CM MET WITH PT AT BEDSIDE IN ED. PT ENDORSES ALL OVER BODY PAIN. PT LIVES WITH DAUGHTER WHO IS HER FOAM GUN OPERATOR/CAREGIVER. PT ATTENDS [facility] FOR HD ON AND HAS PRIVATE TRANSPORT TO THESE APPT.'S. PT IS UNSURE IF SHE HAS A VNA AND GIVES PERMISSION FOR THIS CM TO SPEAK WITH HER DAUGHTER HUMBERTO. +HCP ON FILE/VERIFIED. PCP DR. PIERRE. PT IS WILLING TO STAY FOR P.T. EVAL TO DETERMINE NEEDS. PT IS CALM AND PLEASANT WITH NO AGITATION NOTED AT THIS TIME. CM WILL CONTINUE TO FOLLOW FOR PLAN
--- NOTE | 2024-06-27 12:37 | PC.NURSE ---
pt continuously adamantly requesting pain medication. pt educated that PRN oxycodone is not able to be administered until 1232. pt did not like hearing this/is visibly upset. pt telling this RN she is going to leave. pt notified that she is not able to leave at this time. PRN oxycodone pulled from [facility] as pt continues to ask for pain medication. when speaking w/ pt - pt told this RN that she does not want this medication and only wants IM injection. pt educated that there is not an order. refused oxycodone administration. medication returned to [facility] with ML Richard.
--- NOTE | 2024-06-27 13:14 | PHA.MEDREC ---
Pharmacy Consult ? Medication Reconciliation Pharmacy has completed the medication reconciliation. Spoke to patient's daughter Eamon ([phone]) via phone to confirm medication list. Daughter sounded knowledgeable about her mother's medications. She said pt only takes gabapentin PRN, percocet is q6h on schedule and sevelamer was just changed to tid recently. Last dose of medications was friday, except she got pain medication yesterday (06/26/24) before going to dialysis.
[2024-06-27] MEDS: Loratadine 10 MG TABLET PO (13:44)
[2024-06-27] MEDS: Omeprazole 20 MG CAPSULE.DR PO (13:44)
[2024-06-27] MEDS: FLUoxetine HCl 20 MG CAPSULE 40 MG PO (13:44)
[2024-06-27] MEDS: Sevelamer Carbonate Tablet 800 MG TABLET PO ×2 (13:44→17:05)
[2024-06-27] MEDS: Atorvastatin Calcium 40 MG TABLET PO (13:44)
--- NOTE | 2024-06-27 13:48 | PC.NURSE ---
delay in medication administration as it was unverified by pharmacy. medication now administered per provider order. resting in recliner in no apparent distress. no sob/wob noted. respirations even/unlabored. plan of care ongoing. call mojica placed within reach.
--- NOTE | 2024-06-27 13:53 | PC.NURSE ---
pt now requesting prn medication. medication administered per provider order. effectiveness pending.
[2024-06-27] MEDS: cefuroxime axetiL 500 MG TABLET PO ×2 (15:27→22:02)
--- NOTE | 2024-06-27 15:31 | PC.NURSE ---
SPOKE WITH PROVIDER, STATES PT IS AWAITING PT EVAL. FOR ANTICIPATED DISCHARGE HOME.
[2024-06-27] MEDS: Montelukast Sodium 10 MG TABLET PO (22:02)
[2024-06-27] MEDS: lisinopriL 10 MG TABLET PO (22:02)
[2024-06-28 05:50] VITALS: BP 91/63; PULSE 64; RESP 18; TEMP 36.6; O2SAT 97
[2024-06-28] MEDS: Omeprazole 20 MG CAPSULE.DR PO (05:52)
--- NOTE | 2024-06-28 07:07 | PC.NURSE ---
patient report received from previous RN, patient resting comfortably on stretcher at this time. per reports patient has not received dialysis since last 06/24. MD to be made aware. patient not offering any complaints at this time
--- NOTE | 2024-06-28 08:09 | PC.NURSE ---
patient ambulated to bathroom with steady gait with a walker. provided with breakfast tray, offering no complaints at this time, cooperative with care
[2024-06-28] MEDS: Loratadine 10 MG TABLET PO (08:38)
[2024-06-28] MEDS: FLUoxetine HCl 20 MG CAPSULE 40 MG PO (08:38)
[2024-06-28] MEDS: Ferrous Sulfate 324 MG TABLET.DR PO (08:39)
[2024-06-28] MEDS: Sevelamer Carbonate Tablet 800 MG TABLET PO ×2 (08:39→11:46)
[2024-06-28] MEDS: cefuroxime axetiL 500 MG TABLET PO (08:39)
[2024-06-28] MEDS: oxyCODONE HCl Immed Release 5 MG TABLET PO ×2 (08:39→13:20)
[2024-06-28] MEDS: Atorvastatin Calcium 40 MG TABLET PO (08:39)
--- NOTE | 2024-06-28 11:41 | PC.NURSE ---
PT at bedside to evaluate patient patient ambulatory with walker around overflow unit, strong steady gait noted. PT states pt should be able to go home with what she has in place. case management updated on plan patient provided with lunch tray at this time
--- NOTE | 2024-06-28 12:04 | MHC.CM.PN ---
P.T. HAS CLEARED PT FOR HOME WITH RESUMPTION OF FAMILY SUPPORT/[facility]. RN/PROVIDER AWARE. DAUGHTER HUMBERTO AND PT BOTH AGREEABLE TO PLAN, DAUGHTER WILL TRANSPORT HOME AND [facility] UPDATED.
[2024-06-28 13:15] VITALS: BP 118/69; PULSE 65; RESP 19; TEMP 37.2; O2SAT 98
--- NOTE | 2024-06-28 13:39 | PC.NURSE ---
discharge instructions reviewed with daughter, patient provided with wheelchair and escorted out by EDT. all safety maintained
--- NOTE | 2024-06-29 11:40 | MHC.CM.ED ---
Received telephone call from Yaritza of [facility]. Yaritza will be filing [facility]. Patient receives oxycodone from [facility] and ativan from another provider. Urine tox negative.
== END 2024-06-28 13:36 | disposition home or self-care (01) ==
PROVIDERS: Physician Assistant; Emergency Provider Emergency Medicine Emergency Medical Services
DX: M25.59 Pain in other specified joint (principal); N39.0 Urinary tract infection, site not specified; J18.9 Pneumonia, unspecified organism; I13.2 Hypertensive heart and chronic kidney disease with heart failure and with stage 5 chronic kidney disease, or end stage renal disease; N18.6 End stage renal disease; I50.9 Heart failure, unspecified; Z99.2 Dependence on renal dialysis; M25.462 Effusion, left knee; E78.5 Hyperlipidemia, unspecified; R29.6 Repeated falls; Z91.81 History of falling; Z87.891 Personal history of nicotine dependence; Z03.818 Encounter for observation for suspected exposure to other biological agents ruled out
CPT/HCPCS: 0241U; 36415; 70450; 71045; 73562; 80053; 80307; 81001; 83690; 84484; 85025; 87086; 93005; 97163; 99285; J2270; S9485

== ENCOUNTER 2025-05-25 11:32 | Inpatient (IN) | payer MEDICARE, SELFPAY ==
--- OUTSIDE RECORDS SUMMARY | 2025-05-21 23:59 | XMS_ITS | Continuity of Care Document ---
Author Organization [facility] Address [address] [place] [address]- Care Team Providers Care Manager Utilization Name Role Phone Fran Alegria MD Primary Care Physician [phone] [place] [facility] [place]): [place]25 [facility] [address] [place] [id number] Attending Physician: Admtr, Ar8 Admitting Physician: Admtr, Ar8 Referring Physician: Admtr, Ar8 Encounter Type: Triage Allergies, Adverse Reactions, Alerts Substance Criticality Severity Reaction Reaction Severity Status gabapentin 1 Drowsiness Active traZODone Drowsiness Lethargy Active Tylenol with Codeine hives Active 1pt reports it makes her loopy Immunizations Given and Recorded Vaccine Date Status Refusal Reason influenza virus vaccine, inactivated 07/19/24 Give n influenza virus vaccine, inactivated 11/27/23 Keny rded influenza virus vaccine, inactivated 08/06/22 Keny rded influenza virus vaccine, inactivated 07/19/21 Keny rded influenza virus vaccine, inactivated 07/10/20 Keny rded influenza virus vaccine, inactivated 07/27/19 Keny rded influenza virus vaccine, inactivated 07/28/18 Keny rded influenza virus vaccine, inactivated 07/01/17 Keny rded influenza virus vaccine, inactivated 07/21/15 Keny rded [id number] 12y+ bivalent booster vax 09/22/22 Recorded SARS-CoV-2 (COVID-19) mRNA BNT-162b2 vac 07/31/21 Recorded SARS-CoV-2 (COVID-19) mRNA BNT-162b2 vac 12/24/20 Recorded SARS-CoV-2 (COVID-19) mRNA BNT-162b2 vac 12/04/20 Recorded pneumococcal 23-valent vaccine 07/27/19 Recorded pneumococcal 13-valent vaccine 07/01/17 Recorded Medications acetaminophen/butalbital/caffeine 325 mg-50 mg-40 mg oral tablet 1 tablet, TAKE 1 TABLET BY MOUTH EVERY 12 HOURS NEEDED FOR PAIN Start Date: 10/18/24 Status: Ordered Repeat number: 1 Advair Diskus 100 mcg-50 mcg inhalation powder 1, inhalation, Inhalation, 2 times a day, Refills 0, Maintenance, 07/17/24 11:26:00 PM EDT Start Date: 07/17/24 Status: Ordered Repeat number: 1 Albuterol (Eqv-Ventolin HFA) 90 mcg/inh inhalation aerosol 2 inhalation = 180 mcg, Inhalation, Every 6 hours, PRN as needed for shortness of breath or wheezing, # 18 Gm, 0 Refills, Maintenance, 10/18/24 10:37:00 PM EST, Aerosol, Partial fill upon patient request if the prescription is for a schedule II opioid drug. Start Date: 10/18/24 Status: Ordered Quantity: 18.0 Unit: g Repeat number: 1 aspirin 81 mg oral delayed release tablet 81 mg, By Mouth, Daily, further refills per pcp, # 90 tablet, Refills 1, Tot. Refills 1, Maintenance, 07/21/24 11:56:00 AM EDT, Route to Pharmacy Electronically, [facility], Partial fillupon patient request if the prescription is for a schedule II opioid drug., 169, cm, 07/21/24 10:18:00 EDT, Height, 37.6, kg, 07/21/24 4:18:00 EDT, Dry Weight Start Date: 07/21/24 Status: Ordered Quantity: 90.0 Unit: tablet Repeat number: 2 atorvastatin 40 mg oral tablet 1 tablet = 40 mg, By Mouth, Daily, Maintenance, 07/03/24 2:52:00 PM EDT, Tablet, Partial fill upon patient request if the prescription is for a schedule II opioid drug. Start Date: 07/03/24 Status: Ordered Repeat number: 1 calcitriol 0.25 mcg oral capsule = 0.5 mcg, By Mouth, Every Friday, and Friday, 0 Refills, Maintenance, 07/05/24 12:46:00 PM EDT, Capsule, Partial fill upon patient request if the prescription is for a schedule II opioid drug. Start Date: 07/05/24 Status: Ordered Repeat number: 1 docusate sodium 100 mg oral capsule 100 mg, 1, capsule, By Mouth, 2 times a day, PRN, further refills per pcp, # 60 capsule, Refills 0,Tot. Refills 0, Maintenance, as needed for constipation, 07/21/24 11:58:00 AM EDT, Route to PharmacyElectronically, [facility], Partial fill upon patient request if the prescription is for a schedule II opioid drug., 169, cm, 07/21/24 10:18:00 EDT, Height, 37.6, kg, 07/21/24 4:18:00 EDT, Dry Weight Start Date: 07/21/24 Status: Ordered Quantity: 60.0 Unit: capsule Repeat number: 1 gabapentin 100 mg oral capsule 100 mg, By Mouth, Daily at bedtime, # 30 each, Refills 0, Tot. Refills 0, Maintenance, 11/01/24 10:09:00 AM EST, Route to Pharmacy Electronically, [facility], Partial fill upon patient request if the prescription is for a schedule II opioid drug., 170, cm, 10/31/24 21:09:00 EST, Height,35.7, kg, 10/27/24 8:18:00 EST, Dry Weight Start Date: 11/01/24 Stop Date: 12/01/24 Status: Ordered Quantity: 30.0 Unit: each Repeat number: 1 lidocaine 4% topical cream 1 applicator, Topically, 3 times a day, apply to shoulders hands and knees, # 30 Gm, 0 Refills, Maintenance, 07/21/24 11:58:00 AM EDT, Cream, [facility], Partial fill upon patient request if the prescription is for a schedule II opioid drug., 1 applicator Topically 3 times a day,Instr:apply to shoulders hands and knees, 169, cm, 07/21/24 10:18:00 EDT, Height, 37.6, kg, 07/21/24 4:18:00 EDT, Dry Weight Start Date: 07/21/24 Status: Ordered Quantity: 30.0 Unit: g Repeat number: 1 lidocaine 4% topical film 1 patch, Topically, Daily, Apply to left front chest tender point; 12 hours on then 12 hours off., # 14 patch, 0 Refills, Maintenance, 12/27/24 12:37:00 PM EST, Film, [id number] [place], Partial fill upon patient request if the prescription is for a schedule II opioid drug., 1 patch Topically Daily,Instr:Apply to left front chest tender point; 12 hours on then 12 hours off., 171, cm, 12/27/24 11:58:00 EST, Height, 43.1, kg, 12/25/24 5:54:00 EST, Dry Weight Start Date: 12/27/24 Status: Ordered Quantity: 14.0 Unit: patch Repeat number: 1 LORazepam 0.5 mg oral tablet 1 tablet = 0.5 mg, By Mouth, 2 times a day, PRN as needed for anxiety, 0 Refills, Maintenance, 07/17/24 10:40:00 PM EDT, Tablet, Partial fill upon patient request if the prescription is for a scheduleII opioid drug. Start Date: 07/17/24 Status: Ordered Repeat number: 1 midodrine 10 mg oral tablet 1 tablet = 10 mg, By Mouth, 3 times a day, # 180 tablet, 0 Refills, Maintenance, 11/05/24 10:04:00 AM EST, Tablet, [facility], Partial fill upon patient request if the prescription is for a schedule II opioid drug., 170, cm, 11/05/24 8:10:00 EST, Height, 35.7, kg, 10/27/24 8:18:00 EST,Dry Weight Start Date: 11/05/24 Stop Date: 01/04/25 Status: Ordered Quantity: 180.0 Unit: tablet Repeat number: 1 montelukast 10 mg oral tablet 10 mg, 1, tablet, By Mouth, Daily, Refills 0, Maintenance, 07/03/24 2:53:00 PM EDT, Partial fill uponpatient request if the prescription is for a schedule II opioid drug. Start Date: 07/03/24 Status: Ordered Repeat number: 1 pantoprazole 40 mg oral delayed release tablet 1 tablet = 40 mg, By Mouth, Daily, Maintenance, 07/03/24 2:54:00 PM EDT, EC Tablet Start Date: 07/03/24 Status: Ordered Repeat number: 1 Plavix 75 mg oral tablet 75 mg, By Mouth, Daily, continue for at least 12 months without interruption unless directed by your back line cook, # 90 tablet, Refills 3, Tot. Refills 3, Maintenance, 07/21/24 11:57:00 AM EDT, Route to Pharmacy Electronically, [facility], Partial fill upon patient request if the prescription is for a schedule II opioid drug., 169, cm, 07/21/24 10:18:00 EDT, Height, 37.6, kg, 07/21/24 4:18:00 EDT, Dry Weight Start Date: 07/21/24 Status: Ordered Quantity: 90.0 Unit: tablet Repeat number: 4 Senna By Mouth, PRN as needed for constipation, 0 Refills, Maintenance, 07/17/24 10:41:00 PM EDT, Partial fill upon patient request if the prescription is for a schedule II opioid drug. Start Date: 07/17/24 Status: Ordered Repeat number: 1 sevelamer carbonate 800 mg oral tablet 1 tablet = 800 mg, By Mouth, 3 times a day, Maintenance, 07/03/24 2:54:00 PM EDT, Tablet, Partial fill upon patient request if the prescription is for a schedule II opioid drug. Start Date: 07/03/24 Status: Ordered Repeat number: 1 traZODone 50 mg oral tablet 25 mg, By Mouth, Daily at supper, # 30 tablet, Refills 0, Tot. Refills 0, Maintenance, 05/03/25 10:26:00 AM EDT, Do Not Route, Partial fill upon patient request if the prescription is for a schedule IIopioid drug. 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/13 Active Chronic back pain Confirmed Active COPD without exacerbation Confirmed Active Chronic pain syndrome Confirmed Active Coronary artery disease Confirmed Active Mild dementia Confirmed Active ESRD on dialysis Confirmed Active Fall Confirmed Active HFrEF (heart failure with reduced ejection fraction) Confirmed Active History of ST elevation myocardial infarction (STEMI) Confirmed Active Hyperlipidemia Confirmed Active Hypertension Confirmed Active Migraine Confirmed Active Neck pain Confirmed Active Pelvic fracture Confirmed Active Peripheral neuropathy Confirmed Active Periprosthetic hip fracture (right) Confirmed Active Underweight Confirmed Active Vascular dementia Confirmed Active Social History Social History Type Response Smoking Status Former smoker, quit more than 30 days ago entered on: 07/17/24 Sex Sex Representation Female (finding) Patient Care team information Care Team Personnel Name: Mis Fishman RN Position: S RN Member Role: Primary Care Nurse Name: Poppy Caal RN Position: S RN Member Role: Primary Care Nurse Name: Mariam Mcgowan RN Position: [facility] RN Member Role: Primary Care Nurse Name: Dayna Eubanks Position: [facility] Associate Professional Member Role: Lifetime Consulting Provider Address: [address] [facility] [address] [facility] [address] Telecom: Name: Fran Alegria MD Position: [facility] Outreach Member Role: PCP Address: [address] [place] [address] Internal Medicine [address] Telecom: Name: Ema Celestin RN Position: [facility] SN RN Member Role: Primary Care Nurse Name: Annmarie Gonzalez RN Position: [facility] RN Member Role: Primary Care Nurse Name: Sujey Yin RN Position: [facility] RN Member Role: Primary Care Nurse Name: Fredo Nichols RN Position: [facility] RN Member Role: Primary Care Nurse Name: Lori Shipley Position: [facility] Outreach Member Role: Lifetime Consulting Physician Name: Debbie Topete Position: [facility] Associate Professional Member Role: Lifetime Consulting Provider Address: [address] [facility] [address] Telecom: Name: Altagracia Alicia LPN Position: S RN Member Role: Primary Care Nurse Name: Isac Gupta RN Position: [facility] RN Member Role: Primary Care Nurse Name: Tanika Palmer RN Position: S RN Member Role: Primary Care Nurse Name: Qasim Turner MD Position: [facility] Renal MD Member Role: Lifetime Consulting Physician Address: [address] [facility] [place], [place] [address] Telecom: Name: Roland Brito RN Position: [facility] RN Member Role: Primary Care Nurse Name: Kyara Das RN Position: [facility] RN Member Role: Primary Care Nurse Name: Daniela Avery RN Position: [facility] Hospital Nursing Faculty Member Role: Primary Care Nurse Name: Jojo Johnson Position: [facility] Outreach Member Role: Lifetime Consulting Physician Name: Lillian Dunn RN Position: [facility] RN Member Role: Primary Care Nurse Name: Kaycee Zhang RN Position: [facility] RN Member Role: Primary Care Nurse Name: Osmin Rogers RN Position: [facility] RN Member Role: Primary Care Nurse Name: Sirisha Tolbert RN Position: [facility] RN Member Role: Primary Care Nurse Name: Jason RNMor Position: [facility] RN Member Role: Primary Care Nurse Name: Pema Lester RN Position: [facility] RN Member Role: Primary Care Nurse Name: Laurel Lal RN Position: [facility] RN Member Role: Primary Care Nurse Name: Bg Cosme RN Position: [facility] RN Member Role: Primary Care Nurse Name: Suzie Gilman RN Position: [facility] RN Member Role: Primary Care Nurse Name: Jc Purdy RN Position: [facility] RN Member Role: Primary Care Nurse Name: Lorin Pinto RN Position: [facility] RN Member Role: Primary Care Nurse Name: Mildred Ni RN Position: [facility] RN Member Role: Primary Care Nurse Name: Rebecca Stauffer RN Position: [facility] RN Member Role: Primary Care Nurse Name: Agustina Lauren NP Position: [facility] Outreach Member Role: Lifetime Consulting Physician Address: [address] [place] [address]- [place] Telecom: Name: Gavino Garcia MD Position: [facility] Renal MD Member Role: Lifetime Consulting Physician Address: [address] [facility] [place] [address]- [place] Telecom: Name: Kiara Grant RN Position: [facility] RN Member Role: Primary Care Nurse Name: Evy Sandoval RN Position: S RN Member Role: Primary Care Nurse Name: Irais Sebastian RN Position: S RN Member Role: Primary Care Nurse Name: Willa Dimas RN Position: S RN Member Role: Primary Care Nurse Name: Digna Yip RN Position: [facility] RN Member Role: Primary Care Nurse Name: Winnie Martínez RN Position: [facility] RN Member Role: Primary Care Nurse Name: Cierra Schulz RN Position: [facility] RN Member Role: Primary Care Nurse Name: Leon Lopez RN Position: [facility] RN Member Role: Primary Care Nurse Name: Zhou Hidalgo MD Position: [facility] Renal MD Member Role: Lifetime Consulting Physician Address: [address] [place] [address] [address] [facility] [address] Telecom: Name: Kiara Wahl RN Position: [facility] RN Member Role: Primary Care Nurse Name: Deedee Enriquez RN Position: [facility] RN Member Role: Primary Care Nurse Name: Va Caballero LPN Position: [facility] RN Member Role: Primary Care Nurse Care Team Related Persons Name: FLO RIGGS Name: JONAH RIGGS Name: NELSON CALZADA Insurance Providers Guarantor name: [employer] Health Plan Information #: 1 Payer: [facility] Payer Identifier: Member Number: [id number] Group Number: [id number] Subscriber Identifier: [id number] Relationship to Subscriber: self Coverage Type: Medicare HMO Coverage Verification Date: Telecom: Address:
[2025-05-25] VITALS (7 sets, daily range): BP systolic 121–153; BP diastolic 59–74; PULSE 65–68; RESP 16–18; TEMP 36.3–36.8; O2SAT 93–100; BMI 17.1; BMI 15.2
--- NOTE | ~2025-05-25 | US_ITS ---
EXAMINATION: US TRIPLEX LOWER EXTREMITY, BILATERAL CLINICAL INFORMATION: Bilateral lower extremity edema COMPARISON: None available. TECHNIQUE: Color-flow triplex imaging with spectral analysis and compression Doppler were performed on the bilateral lower extremities. FINDINGS: Respiratory variation, normal compression and augmented flow are noted throughout the bilateral lower extremities. The visualized common femoral vein, superficial femoral vein, profunda femoral vein, popliteal vein and midcalf peroneal and posterior tibial venous segments show no evidence of deep venous thrombosis bilaterally. There is no Weldon's cyst. US/US venous duplex LE BI IMPRESSION: No evidence of deep venous thrombosis involving the bilateral lower extremities. Electronically signed by: Tito Flaherty MD 05/25/2025 02:31 PM EDT RP
--- NOTE | ~2025-05-25 | CT_ITS ---
EXAMINATION: CT ABDOMEN AND PELVIS WITH CONTRAST CLINICAL INFORMATION: Abdominal pain, emesis, ascites COMPARISON: Unenhanced CT performed earlier today. And CT from March 04, 2024 TECHNIQUE: Multidetector volumetric images were obtained from the superior aspect of the liver through the pubic symphysis following administration 80 mL of Omnipaque 350 intravenous contrast. Sagittal and coronal reformatted images were obtained on the technologist's workstation. Oral contrast: No This CT examination was performed using dose optimization techniques as appropriate, variously including the following: *Automated exposure control *Adjustment of mA and/or kV according to patient size (this includes techniques or standardized protocols for targeted exams where dose is matched to indication/reason for exam; i.e. extremities or head) *Use of iterative reconstruction technique DLP: 312 mGY*cm FINDINGS: LUNG BASES: There is dependent atelectasis. LIVER, GALLBLADDER, AND BILIARY TREE: There is moderate intrahepatic biliary ductal dilation. There is moderate extra hepatic biliary ductal dilation. The extra hepatic duct diameter measured 10 mm. It is dilated to the level of the ampulla. It appeared dilated on the prior one year ago. Gallbladder has been removed and there are clips in the gallbladder fossa. PANCREAS: The pancreatic duct is dilated measuring up to 7 mm diameter and also appeared prominent on the prior one year ago. SPLEEN: Unremarkable. ADRENAL GLANDS: Unremarkable. KIDNEYS AND URETERS: There are small kidneys with renal cortical thinning and simple renal cysts. There is a solid enhancing mass involving the superior pole the left kidney 14 mm in diameter. BLADDER: Bladder is obscured by beam hardening artifact related to right hip replacement. There is probably mild wall thickening. GASTROINTESTINAL TRACT: [place], the rectum is ill-defined and may be thickened. Degenerative changes otherwise unremarkable. There is a small amount of free fluid. ABDOMINAL WALL: No significant hernia is appreciated. LYMPH NODES: Normal. VASCULAR: Moderate to severe vascular calcifications are evident. PELVIC VISCERA: Unremarkable. OSSEOUS STRUCTURES: Chronic mild superior endplate compression fracture is present at L2. Total hip replacement is seen on the right. Left hip demonstrates severe degenerative change. Additional, there is an avulsion fracture along the posterior facet of the greater trochanter.. There is also fracture involving the anterior junction of iliac bone and superior pubic ramus.. There is also fracture of the left inferior pubic ramus. There is a healed fracture right inferior pubic ramus. Advanced multilevel degenerative changes are present in the spine. There is diffuse groundglass density throughout the vertebral bodies in the imaged portion of the spine appears to be a change when compared with 2023 . There are similar changes in the sacrum and adjacent iliac bones. CT/CT abdomen pelvis w IV con IMPRESSION: 14 mm solid enhancing mass in the superior pole left kidney is consistent with renal cell carcinoma until proven otherwise. There is diffuse groundglass density throughout the imaged portions of the spine which is changed when compared to the prior study from one year ago. This raises question of a diffuse marrow replacing process which would include metastatic disease/malignancy. Questionable rectal wall thickening raises question of ischemia, neoplasm, and infection. Acute versus subacute fracture of the left inferior pubic ramus, left iliopubic junction/eminence, and posterior facet of the left greater trochanter. Chronic compression fracture of L2 and chronic inferior right pubic ramus fracture. Chronic biliary and pancreatic duct dilation. Chronic kidney disease. Fleischner guidelines were followed. Electronically signed by: Tommie Curits MD 05/25/2025 03:52 PM EDT
--- NOTE | ~2025-05-25 | CT_ITS ---
EXAMINATION: CT ABDOMEN PELVIS WITHOUT IV CONTRAST HISTORY: bilateral lower abd pain COMPARISON: Comparison is made with the prior examination dated 03/04/2024. TECHNIQUE: CT scan of the abdomen and pelvis was performed without contrast using standard departmental protocol. Coronal and sagittal reformatted images were generated and reviewed. Oral contrast material was not administered at the request of the referring physician. This CT exam was performed with one or more of the following dose reduction techniques: automated exposure control, adjustment of the mA and/or kV according to patient size, use of iterative reconstruction technique. DLP: 338 mGy-cm FINDINGS: LOWER CHEST: The visualized lung bases are clear. There is no pleural effusion. CARDIOVASCULATURE: The heart is normal in size. There is no pericardial effusion. LIVER: The liver is normal in size and contour. The liver has an unremarkable unenhanced appearance. GALLBLADDER / BILE DUCTS: The gallbladder is surgically absent. There is mild intra and extrahepatic biliary ductal dilatation without change. SPLEEN: The spleen is normal in size and has an unremarkable unenhanced appearance. PANCREAS: Again seen is dilatation of the pancreatic duct. Evaluation of the pancreas is otherwise limited on this unenhanced examination. ADRENAL GLANDS: Unremarkable. KIDNEYS/RETROPERITONEUM: The kidneys are atrophic. No renal calculi are identified. There is no hydronephrosis. LYMPH NODES: No retroperitoneal lymphadenopathy is identified in the abdomen or pelvis. VASCULATURE: The abdominal aorta demonstrates marked atherosclerotic calcification, but is normal in caliber. MESENTERY/PERITONEUM: There is a small amount of free fluid in the upper abdomen and in the pelvis. There is no free intraperitoneal gas. STOMACH: The stomach is collapsed, limiting evaluation. SMALL BOWEL: The small bowel is normal in caliber. COLON: There is a large amount of stool in the colon. APPENDIX: The appendix is not seen, however no inflammatory changes are seen adjacent to the cecum. URINARY BLADDER/PELVIC ORGANS: The urinary bladder is poorly evaluated due to streak artifact from a right total hip arthroplasty. The patient is status post hysterectomy. BONES / SOFT TISSUES: There is levoscoliosis and degenerative disc disease of the spine. CT/CT abdomen pelvis wo IV con IMPRESSION: Limited examination due to lack of intravenous and oral contrast material. Small amount of free fluid in the abdomen and pelvis. Large amount of stool throughout the colon. Electronically signed by: Noah Hoang MD 05/25/2025 01:09 PM EDT RP
--- NOTE | 2025-05-25 12:18 | ED_ITS ---
HPI - General Adult General Chief complaint: Abdominal Pain Stated complaint: abd pain x24 hrs, from SNF Time Seen by Provider: 05/25/25 12:17 Source: patient and EMS Mode of arrival: EMS Limitations: physical limitation (patient has severe vascular dementia) History of Present Illness ED Provider: Dorothy Feldman PA-C HPI narrative: Patient is an 84 year old assigned female at with a history of ESRD on hemodialysis Friday//Friday, heart failure with reduced ejection fraction (last echo on 07/2024 45-50%), CAD, HTN, HLD, COPD, vascular dementia, anemia, left pelvic fracture on 05/03/2025, malnutrition, thrombocytosis, and left renal mass - possible renal cancer presenting to the emergency department today with groin pain. Patient states that her bilateral groin is intermittently painful but not all the time. Patient denies any complaints at this time. Patient states that she did get dialysis yesterday. Related Data Home Medications ?Medication ?Instructions ?Recorded ?Confirmed montelukast 10 mg tablet 10 mg PO BEDTIME 07/28/20 lorazepam 0.5 mg tablet 0.5 mg PO BID PRN Anxiety 05/25/25 pantoprazole 40 mg tablet,delayed 40 mg PO DAILY@0630 08/01/20 05/25/25 release atorvastatin 40 mg tablet 40 mg PO BEDTIME 06/19/22 [id number] 1 tab PO Q12H PRN He adache 12/09/22 05/25/25 50 mg-325 mg-40 mg tablet sevelamer carbonate 800 mg tablet 800 mg PO TIDWM 08/2905/25/25 gabapentin 100 mg capsule 100 mg PO BEDTIME Pain 11/2705/25/25 acetaminophen 500 mg tablet 1,000 mg PO TID PRN Pain 0 05/25/25 05/25/25 albuterol sulfate 90 mcg/actuation 2 puff inhalation Q 4H PRN 05/25/25 05/25/25 aerosol inhaler Shortness Of Breath Or Wheez ing aspirin 81 mg tablet 81 mg PO DAILY 05/25/25/ bisacodyl 10 mg rectal suppository 10 mg NV DAILY PRN Constipation 05/25/25 05/25/25 calcitriol 0.5 mcg capsule 0.5 mcg PO Q48H 05/25/25 clopidogrel 75 mg tablet 75 mg PO DAILY 05/25/2504/28 fluticasone 100 mcg-salmeterol 50 1 inh inhalation Q12 H 05/25/25 05/25/25 mcg/dose blistr powdr for inhalation (Advair Diskus) lidocaine 4 % topical cream 1 appl topical TID PRN Adarsh n 05/25/25 05/25/25 lidocaine 4 % topical patch 1 patch topical Q12H PRN P ain 05/25/25 05/25/25 midodrine 10 mg tablet 5 mg PO TID 05/25/25 5 naloxone 0.4 mg/mL injection 0.4 mg subcut Q3M PRN Opi oid 05/25/25 05/25/25 solution Overdose oxycodone 5 mg tablet 5 mg PO Q4H PRN Pain 5 05/25/25 sennosides 8.6 mg-docusate sodium 2 tab-cap PO BID 05/25/25 50 mg tablet (Senna with Docusate Sodium) sodium phosphates 19 gram-7 118 ml NV DAILY PRN Consti pation 05/25/25 05/25/25 gram/118 mL enema (Fleet Enema) trazodone 50 mg tablet 25 mg PO BEDTIME 05/25/25 Allergies Allergy/AdvReac Type Severity Reaction Status Date / Time codeine (Codeine) Allergy Mild RASH Verified 05/25/25 11:44 Sulfa (Sulfonamide Allergy Mild HIVES Verified 05/25/25 11:44 Antibiotics) (Sulfa (Sulfonamides)) ibuprofen (From Motrin) AdvReac Mild STOMACH Verified 05/25/25 11:44 UPSET, Rectal bleeding Review of Systems 2 Review of Systems: Yes Other (patient is demented) Constitutional: Constitutional: Reports no additional constitutional complaints, Denies chills, Denies fever(s) and Denies night sweats Eyes: Eyes: Reports no additional eye complaints, Denies blurry vision, Denies change in vision, Denies diplopia, Denies eye discharge, Denies loss of vision and Denies eye pain ENT: Denies dizziness Cardiovascular: Cardiovascular: Reports no additional cardiovascular complaints, Denies chest pain, Denies lightheadedness, Denies Loss of Consciousness and Denies dyspnea Respiratory: Respiratory: Reports no additional respiratory complaints and Denies dyspnea Gastrointestinal: Gastrointestinal: Reports no additional gastrointestinal complaints, Denies melena, Denies hematochezia, Denies change in bowel habits and Denies change in stool character Comments: bilateral groin pain Genitourinary: Genitourinary: Denies hematuria, Denies urinary frequency, Denies dysuria, Denies urinary incontinence, Denies urinary hesitancy and Denies urinary urgency Musculoskeletal: Musculoskeletal: Reports no additional musculoskeletal complaints, Denies numbness and Denies tingling Neurologic: Denies dizziness, Denies loss of vision, Denies numbness and Denies tingling Psychiatric: Psychiatric: Reports no additional psychiatric complaints Endocrine: Endocrine: Reports no additional endocrine complaints Hematologic/Lymphatic: Hematologic/Lymphatic: Reports no additional hematologic/lymphatic complaints Allergic/Immunologic: Allergic/Immunologic: Reports no additional allergic/immunologic complaints PMFSH Past Medical History Attestation statement: The following information was validated with the patient. Source: old records reviewed and nursing notes reviewed Medical History ESRD needing dialysis Chronic kidney disease requiring chronic dialysis Compression fx, lumbar spine ESRD (end stage renal disease) CKD (chronic kidney disease) stage 4, GFR 15-29 ml/min Metabolic acidosis Hyperkalemia FLORECITA (acute kidney injury) Anemia CHF (congestive heart failure) Headache Hypertensive urgency CKD (chronic kidney disease) Anxiety and depression Hiatal hernia Chronic anemia Hyperlipidemia Back pain Osteoarthritis Anemia COPD (chronic obstructive pulmonary disease) GERD (gastroesophageal reflux disease) Asthma Hypertension Surgical History Hx of breast biopsy History of esophagogastroduodenoscopy (EGD) Hx of colonoscopy History of left-sided carotid endarterectomy History of total right hip arthroplasty History of open reduction and internal fixation (ORIF) procedure History of cholecystectomy H/O of rectopexy History of bowel resection H/O: hysterectomy Social History Social History Household Members: Children Household Members Other:: DAUGHTER LAURECE Housing: Condominium Housing Other:: was currently at assisted living prior to admission Do you presently have visiting nurse or other home services: Yes Unable to assess alcohol history related to: Unknown Alcohol intake: current Alcohol intake frequency: holidays/special occasions only Comment: tylenol 325mg po given & warm blanket, layed on left side Patient Tobacco Use Status: Former Tobacco user Tobacco use type: Cigarette Years Smoked: 20 e-Cigarette/Vaping Use: Never Used Second Hand Smoke Exposure: No Substance Use Type: Marijuana Advance Directives Date on File: 09/04/20 service: No Current occupational status: retired Physical Exam ED Vital Signs: Vital Signs - 24 hr 05/25/25 15:35 05/25/25 16:28 Temperature 98.2 F 97.9 F Pulse Rate 65 68 Respiratory Rate 18 16 Blood Pressure 128/60 126/59 L Pulse Oximetry 93 93 Oxygen Delivery Method Room Air Room Air BMI result Body Mass Index 17.1 Const General: cooperative, no acute distress, alert and awake Nutritional Appearance: cachectic Orientation/consciousness: oriented to person, No oriented to place and No oriented to time HENMT Head: Yes normal to inspection and Yes atraumatic Ears: hearing grossly normal bilaterally and external ears normal General nose exam: Normal external nose present, no nasal discharge noted and no epistaxis Face and sinus: Yes normal facial exam, No abrasion and No laceration Mouth: Normal oral and palatal mucosa present, no drooling and no muffled voice Eyes General: appearance normal, both eyes and all related structures Periorbital: periorbital findings normal Eyelids: Yes eyelids normal Conjunctivae: conjunctivae normal Pupils: Equal, round and reactive pupils present EOM: EOMs intact bilaterally Neck Neck: Yes normal visual inspection, Yes full ROM and Yes no lymphadenopathy Resp Effort & Inspection: normal respiratory effort and able to speak in complete sentences Neuro General: oriented to person, No oriented to place, No oriented to time, moves all extremities and CN's II-XI intact bilaterally Cranial nerves: Yes Equal, round and reactive pupils present Cognition (Neuro): normal cognition Extrem General: Yes normal to inspection, Yes full ROM and Yes capillary refill normal Psych Appearance: grossly normal Mental Status: mental status grossly normal Affect: normal affect Attitude: cooperative Thought process: Normal thought process present Thought content: Normal thought content present Insight: Good insight present (Psych) Medications Administered Generic Name Dose Route Start Last Admin Trade Name Freq PRN Reason Stop Dose Admin Aspirin 81 mg 05/26/25 09:00 05/26/25 08:30 Aspirin 81 Mg Tab.Chew PO 81 mg DAILY TONIO Administration Atorvastatin Calcium 40 mg 05/25/25 21:00 05/25/25 20:20 Atorvastatin Calcium 40 Mg Tablet PO 40 mg BEDTIME TONIO Administration Clopidogrel Bisulfate 75 mg 05/26/25 09:00 05/26/25 08:30 Clopidogrel Bisulfate 75 Mg Tablet PO 75 mg DAILY TONIO Administration Fluticasone/Vilanterol 1 puff 05/26/25 08:00 05/26/25 12:04 Fluticasone/Vilanterol Blst.W.Dev INHALE Not Given RDAILY TONIO Heparin Sodium (Porcine) 5,000 unit 05/25/25 18:00 05/26/25 06:08 Heparin Sodium,Porcine 5,000 Unit/Ml Vial SUBCUT 5,000 unit Q12H TONIO Administration Lidocaine 1 patch 05/25/25 18:31 05/26/25 08:27 Lidocaine 4 % Patch Adh..Patch TRANSDERMA 1 patch Q12H PRN Administration Pain, Mild (Pain Scale 1-3) Protocol Midodrine 5 mg 05/25/25 21:00 05/26/25 14:04 Midodrine Hcl 5 Mg Tablet PO 5 mg TID TONIO Administration Montelukast Sodium 10 mg 05/25/25 21:00 05/25/25 20:20 Montelukast Sodium 10 Mg Tablet PO 10 mg BEDTIME TONIO Administration Oxycodone HCl 5 mg 05/25/25 18:31 05/26/25 14:04 Oxycodone Hcl Immed Release 5 Mg Tablet PO 5 mg Q4H PRN Administration Pain, Severe (Pain Scale 7-10) Pantoprazole Sodium 40 mg 05/26/25 06:30 05/26/25 06:09 Pantoprazole Sodium 20 Mg Tablet.Dr PO 40 mg DAILY@0630 TONIO Administration Senna/Docusate Sodium 2 tab 05/25/25 21:00 05/26/25 08:39 Sennosides/Docusate Sodium Tablet PO 2 tab BID TONIO Administration Sevelamer Carbonate 800 mg 05/26/25 08:00 05/26/25 13:04 Sevelamer Carbonate Tablet 800 Mg Tablet PO Not Given TIDWM [facility] Sodium Chloride 3 ml 05/26/25 00:00 05/26/25 14:05 0.9 % Sodium Chloride Flush 3 Ml Syringe IVFLUSH 3 ml QSHIFT TONIO Administration Trazodone HCl 25 mg 05/25/25 21:00 05/25/25 20:19 Trazodone Hcl 25 Mg Halftab PO 25 mg BEDTIME TONIO Administration Discontinued Medications Generic Name Dose Route Start Last Admin Trade Name Geovanniq PRN Reason Stop Dose Admin Hydroxyurea 500 mg 05/25/25 17:17 05/25/25 18:06 Hydroxyurea 500 Mg Capsule PO 05/25/25 17:18 500 mg ONCE ONE Administration Acetaminophen 1,000 mg in 100 mls @ 400 mls/hr 05/25/25 15:28 05/25/25 16:36 Ofirmev IV 05/25/25 15:42 Infused ONCE ONE Infusion Iohexol 100 ml 05/25/25 15:16 05/25/25 15:17 Iohexol 350 Mg/Ml 100 Ml Infus..Btl IV 05/25/25 15:17 85 ml ONCE ONE Administration Ondansetron HCl 4 mg 05/25/25 14:49 05/25/25 15:03 Ondansetron Hcl 4 Mg/2 Ml Vial IVPUSH 05/25/25 14:50 4 mg ONCE ONE Administration Potassium Chloride 20 meq 05/25/25 13:52 05/25/25 14:22 Potassium Chloride Er 20 Meq Tab.Er.Prt PO 05/25/25 13:53 20 meq ONCE ONE Administration Medical Decision Making Medical Decision Making MDM Narrative: 84 year old female hx of ESRD on hemodialysis Friday//Friday (last dialyzed on 05/24/2025), heart failure with reduced ejection fraction (last echo on 07/2024 45-50%), CAD, HTN, HLD, COPD, vascular dementia, anemia, left pelvic fracture on 05/03/2025, malnutrition, thrombocytosis, and left renal mass - probable renal cancer - currently resides in a SNF. Comes in today for bilateral lower abdominal + groin pain that is intermittent. WBC 11, platelets are 1066 (over a million), K 2.9, BUN 33, CR 5.07. I spoke with Dr. Dawson from [facility] who recommended 500mg of Hydroxyurea PO, every other day as well as bilateral lower leg US to rule out DVT. US study showed no acute DVT. Dry CT abd/pelvis showed stool and free fluid, spoke with Dr. Hidalgo the neurologist from [facility] who recommended 20meq of PO K+ and said getting a CT abd/pelvis with contrast is reasonable considering she'll be dialyzed tomorrow. CT abd/pelvis with IV contrast showed a known left renal mass as well as evidence of mets to the spine and questionable rectal wall thickening which may also be neoplasm. Additionally, she has bilateral pubic rami fracture is the most likely cause of her groin / abdominal pain. I spoke with her healthcare proxy, her daughter, about plan of action / treatment given these findings. She remains on the fence about hospice / palliative care and requested time to speak with family about it. I spoke with case management and we believe hospital / medical admission for dialysis tomorrow with the goal of giving the family / daughter time to reflect on hospice / comfort care is the best plan of action for the patient at this time. I spoke with the hospitalist team who agreed to admission. Differential Diagnosis Differential Diagnoses: The differential diagnosis associated with the presentation includes Hypokalemia Cancer metastases Bilateral pubic rami fracture Admission/Observation Consideration of admission/observation: Escalation of care including admission/observation considered Patient admitted as noted in the MDM Rationale portion of this note. Consult Healthcare Provider Management of the patient was discussed with: Hospitalist (agreed to admission as noted in the MDM Rationale portion of this note. ) and Project Geophysicist (spoke with Dr. Hidalgo from [facility] and Dr. Daswon from Heme/Onc as noted in the MDM Rationale portion of this note. ) Lab Data [facility] Lab Attestation statement: I reviewed the patient's lab results. My interpretation of these results are in the MDM Rationale portion of this note. 05/26/25 05:29 05/26/25 05:29 Labs: Lab Results 05/25/25 Range/Units 12:15 WBC 11.0 H (4.8-10.8) X10*3/uL RBC 3.38 L (4.20-5.50) X10*6/uL Hgb 10.1 L (12.0-16.0) g/dl Hct 31.9 L (37.0-47.0) % MCV 94.4 (80.0-98.0) fL MCH 29.9 (27.0-33.0) pg MCHC 31.7 (31.0-35.0) g/dl RDW 18.0 H (11.0-16.0) % Plt Count 1066 H* D (160-400) X10*3/uL MPV 9.9 (9.4-12.3) fL Immature Gran % (Auto) 2.1 H (0.0-0.4) % Neut % (Auto) 78.4 H (45-73) % Lymph % (Auto) 14.1 L (20-40) % Kinney % (Auto) 2.0 (2-11) % Eos % (Auto) 1.4 (0-4) % Baso % (Auto) 2.0 (0-2) % Lymph # (Auto) 1.6 (1.2-4.9) X10*3/uL Kinney # (Auto) 0.2 (0.1-1.2) X10*3/uL Eos # (Auto) 0.2 (0.0-0.4) X10*3/uL Baso # (Auto) 0.2 (0.0-0.2) X10*3/uL Abs Immat Gran (auto) 0.23 H (0.00-0.03) X10*3/uL Absolute Neuts (auto) 8.6 H (2.0-8.3) x10*3/uL Absolute Nucleated RBC 0.090 H (0.0-0.012) X10*3/uL Nucleated RBC % (auto) 0.8 H (0.0-0.2) /100WBC Smear Path Review SEE NOTE Sodium 142 (135-145) mmol/L Potassium 2.9 L* D (3.3-5.1) mmol/L Chloride 98 (96-108) mmol/L Carbon Dioxide 31 H (22-29) mmol/L Anion Gap 16 (12-20) BUN 33 H (9-16) mg/dL Creatinine 5.07 H* (0.5-1.4) mg/dL Estim Creat Clear Calc 5.0 Estimated GFR 8 Random Glucose 75 (60-115) mg/dL Calcium 8.1 L D (8.4-10.2) mg/dL Total Bilirubin 0.4 (0.0-1.0) mg/dL AST 35 H (5-31) U/L ALT 7 (0-31) U/L Alkaline Phosphatase 156 H (39-117) U/L Total Protein 6.7 (6.5-8.0) g/dL Albumin 3.0 L (3.5-5.0) g/dL Independent Interpretation I performed an independent interpretation of an: Ultrasound and CT Scan Interpretation: My interpretation is in agreement with the radiologist's impression of these imaging studies. L Report Number: [id number]: Total DLP = 209.00 mGy-cm EXAMINATION: CT ABDOMEN PELVIS WITHOUT IV CONTRAST HISTORY: bilateral lower abd pain COMPARISON: Comparison is made with the prior examination dated 03/04/2024. TECHNIQUE: CT scan of the abdomen and pelvis was performed without contrast using standard departmental protocol. Coronal and sagittal reformatted images were generated and reviewed. Oral contrast material was not administered at the request of the referring physician. This CT exam was performed with one or more of the following dose reduction techniques: automated exposure control, adjustment of the mA and/or kV according to patient size, use of iterative reconstruction technique. DLP: 338 mGy-cm FINDINGS: LOWER CHEST: The visualized lung bases are clear. There is no pleural effusion. CARDIOVASCULATURE: The heart is normal in size. There is no pericardial effusion. LIVER: The liver is normal in size and contour. The liver has an unremarkable unenhanced appearance. GALLBLADDER / BILE DUCTS: The gallbladder is surgically absent. There is mild intra and extrahepatic biliary ductal dilatation without change. SPLEEN: The spleen is normal in size and has an unremarkable unenhanced appearance. PANCREAS: Again seen is dilatation of the pancreatic duct. Evaluation of the pancreas is otherwise limited on this unenhanced examination. ADRENAL GLANDS: Unremarkable. KIDNEYS/RETROPERITONEUM: The kidneys are atrophic. No renal calculi are identified. There is no hydronephrosis. LYMPH NODES: No retroperitoneal lymphadenopathy is identified in the abdomen or pelvis. VASCULATURE: The abdominal aorta demonstrates marked atherosclerotic calcification, but is normal in caliber. MESENTERY/PERITONEUM: There is a small amount of free fluid in the upper abdomen and in the pelvis. There is no free intraperitoneal gas. STOMACH: The stomach is collapsed, limiting evaluation. SMALL BOWEL: The small bowel is normal in caliber. COLON: There is a large amount of stool in the colon. APPENDIX: The appendix is not seen, however no inflammatory changes are seen adjacent to the cecum. URINARY BLADDER/PELVIC ORGANS: The urinary bladder is poorly evaluated due to streak artifact from a right total hip arthroplasty. The patient is status post hysterectomy. BONES / SOFT TISSUES: There is levoscoliosis and degenerative disc disease of the spine. CT/CT abdomen pelvis wo IV con IMPRESSION: Limited examination due to lack of intravenous and oral contrast material. Small amount of free fluid in the abdomen and pelvis. Large amount of stool throughout the colon. Electronically signed by: Noah Hoang MD 05/25/2025 01:09 PM EDT RP Dictated By: Noah Hoang MD Signed By: Electronically signed by Noah Hoang MD 05/25/25 1309 Report Number: [id number]: Total DLP = 312.00 mGy-cm EXAMINATION: CT ABDOMEN AND PELVIS WITH CONTRAST CLINICAL INFORMATION: Abdominal pain, emesis, ascites COMPARISON: Unenhanced CT performed earlier today. And CT from March 04, 2024 TECHNIQUE: Multidetector volumetric images were obtained from the superior aspect of the liver through the pubic symphysis following administration 80 mL of Omnipaque 350 intravenous contrast. Sagittal and coronal reformatted images were obtained on the technologist's workstation. Oral contrast: No This CT examination was performed using dose optimization techniques as appropriate, variously including the following: *Automated exposure control *Adjustment of mA and/or kV according to patient size (this includes techniques or standardized protocols for targeted exams where dose is matched to indication/reason for exam; i.e. extremities or head) *Use of iterative reconstruction technique DLP: 312 mGY*cm FINDINGS: LUNG BASES: There is dependent atelectasis. LIVER, GALLBLADDER, AND BILIARY TREE: There is moderate intrahepatic biliary ductal dilation. There is moderate extra hepatic biliary ductal dilation. The extra hepatic duct diameter measured 10 mm. It is dilated to the level of the ampulla. It appeared dilated on the prior one year ago. Gallbladder has been removed and there are clips in the gallbladder fossa. PANCREAS: The pancreatic duct is dilated measuring up to 7 mm diameter and also appeared prominent on the prior one year ago. SPLEEN: Unremarkable. ADRENAL GLANDS: Unremarkable. KIDNEYS AND URETERS: There are small kidneys with renal cortical thinning and simple renal cysts. There is a solid enhancing mass involving the superior pole the left kidney 14 mm in diameter. BLADDER: Bladder is obscured by beam hardening artifact related to right hip replacement. There is probably mild wall thickening. GASTROINTESTINAL TRACT: [place], the rectum is ill-defined and may be thickened. Degenerative changes otherwise unremarkable. There is a small amount of free fluid. ABDOMINAL WALL: No significant hernia is appreciated. LYMPH NODES: Normal. VASCULAR: Moderate to severe vascular calcifications are evident. PELVIC VISCERA: Unremarkable. OSSEOUS STRUCTURES: Chronic mild superior endplate compression fracture is present at L2. Total hip replacement is seen on the right. Left hip demonstrates severe degenerative change. Additional, there is an avulsion fracture along the posterior facet of the greater trochanter. There is also fracture involving the anterior junction of iliac bone and superior pubic ramus.. There is also fracture of the left inferior pubic ramus. There is a healed fracture right inferior pubic ramus. Advanced multilevel degenerative changes are present in the spine. There is diffuse groundglass density throughout the vertebral bodies in the imaged portion of the spine appears to be a change when compared with 2024. There are similar changes in the sacrum and adjacent iliac bones. CT/CT abdomen pelvis w IV con IMPRESSION: 14 mm solid enhancing mass in the superior pole left kidney is consistent with renal cell carcinoma until proven otherwise. There is diffuse groundglass density throughout the imaged portions of the spine which is changed when compared to the prior study from one year ago. This raises question of a diffuse marrow replacing process which would include metastatic disease/malignancy. Questionable rectal wall thickening raises question of ischemia, neoplasm, and infection. Acute versus subacute fracture of the left inferior pubic ramus, left iliopubic junction/eminence, and posterior facet of the left greater trochanter. Chronic compression fracture of L2 and chronic inferior right pubic ramus fracture. Chronic biliary and pancreatic duct dilation. Chronic kidney disease. Fleischner guidelines were followed. Electronically signed by: Tommie Curtis MD 05/25/2025 03:52 PM EDT RP Dictated By: Tommie Curtis MD Signed By: Electronically signed by Tommie Curtis MD 05/25/25 1552 EXAMINATION: US TRIPLEX LOWER EXTREMITY, BILATERAL CLINICAL INFORMATION: Bilateral lower extremity edema COMPARISON: None available. TECHNIQUE: Color-flow triplex imaging with spectral analysis and compression Doppler were performed on the bilateral lower extremities. FINDINGS: Respiratory variation, normal compression and augmented flow are noted throughout the bilateral lower extremities. The visualized common femoral vein, superficial femoral vein, profunda femoral vein, popliteal vein and midcalf peroneal and posterior tibial venous segments show no evidence of deep venous thrombosis bilaterally. There is no Weldon's cyst. US/US venous duplex LE BI IMPRESSION: No evidence of deep venous thrombosis involving the bilateral lower extremities. Electronically signed by: Tito Flaherty MD 05/25/2025 02:31 PM EDT RP Dictated By: Tito Flaherty MD Signed By: Electronically signed by Tito Flaherty MD 05/25/25 1431 Radiology Impression Discussion of test interpretation with radiology: I have reviewed the radiologist's reading. Independent Historian Clinical information obtained from an independent historian. History obtained from or confirmed by: EMS (EMS provided additional history) and Other (Patient's daughter provided additional history) External Record Review External record reviewed: Inpatient record (Read notes from [facility] admission on 05/03) Critical Care Time Critical Care Time Critical Care Time: Yes Total Critical Care Time: 49 Attestation: I spent 49 minutes of Critical Care Time with this patient. This does not include time spent on separately reported billable procedures. Discharge Plan Discharge Clinical Impression: Acute hypokalemia, End stage renal disease, Thrombocytosis Patient Disposition: Admitted As Inpatient Interventions: Admission Worksheet (ED) Last Done: 05/25/25 19:16 Discharge Date/Time: 05/25/25 20:02
[2025-05-25 12:19] LABS: MANUAL DIFF FLAG NO
[2025-05-25 12:32] LABS: Hematocrit 31.9 % (37.0-47.0); Hemoglobin 10.1 g/dl (12.0-16.0); Imm Gran Abs Auto 0.23 X10*3/uL (0.00-0.03); Imm Gran Pct Auto 2.1 % (0.0-0.4); Lymphocytes Absolute Auto 1.6 X10*3/uL (1.2-4.9); Mean Corpuscular HGB Conc 31.7 g/dl (31.0-35.0); Mean Corpuscular Hemoglobin 29.9 pg (27.0-33.0); Mean Corpuscular Volume 94.4 fL (80.0-98.0); NRBC Abs Auto 0.090 X10*3/uL (0.0-0.012); NRBC Pct Auto 0.8 /100WBC (0.0-0.2); Red Blood Count 3.38 X10*6/uL (4.20-5.50); White Blood Count 11.0 X10*3/uL (4.8-10.8)
[2025-05-25 12:36] LABS: Platelet Count 1066 X10*3/uL (160-400)
[2025-05-25 12:41] LABS: Alanine Aminotransferase 7 U/L (0-31); Albumin Level 3.0 g/dL (3.5-5.0); Alkaline Phosphatase 156 U/L (39-117); Anion Gap 16 (12-20); Aspartate Amino Transferase 35 U/L (5-31); Blood Urea Nitrogen 33 mg/dL (9-16); Calcium 8.1 mg/dL (8.4-10.2); Carbon Dioxide 31 mmol/L (22-29); Chloride 98 mmol/L (96-108); Creatinine Clr Calc Pharmacy 5.0; Estimated Glomerular Filt Rate 8; Potassium 2.9 mmol/L (3.3-5.1); Sodium 142 mmol/L (135-145); Total Protein 6.7 g/dL (6.5-8.0)
--- OUTSIDE RECORDS SUMMARY | 2025-05-25 13:05 | XMS_ITS | Patient Health Record ---
Author Organization [facility] Address [address] [place] [address] Care Team Providers Care Gold Letterer Name Role Phone Fran Alegria MD Primary Care Provider Antonino Ordoñez Jr Unavailable Allergies Allergen (clinical drug ingredient) Drug/Non Drug Allergy documented on EMR Reaction Allergy Type Onset Date Status Tylenol/Codeine #3 Unknown Drug Allergy Active Reason For Referral No Information Medications Medication SIG (Take, Route, Frequency, Duration) Notes Start Date End Date Status Senna 8.6 MG 2 tablets at bedtime as needed Orally Once a day for 30 day(s) Active Vitamin D 2000 UNIT Orally Active Cetirizine HCl 10 MG 1 tablet Orally Onc e a day for 30 day(s) Active LORazepam 0.5 MG 1 tablet as needed O rally prn Active amLODIPine Besylate 5 MG 1 tablet Orally Once a day Active Advair HFA 115-21 MCG/ACT 2 puffs Inhala tion Twice a day Active NexIUM 40 MG 1 capsule Orally Onc e a day for 30 days 03/13/2017 Active MiraLax (colon prep) 17 GM/SCOOP mixed with Gatorade or Crystal Light Orally begin at 5:00 p.m. the day before the procedure for 1 day 05/20/2022 Active Pantoprazole Sodium 40 MG 1 tablet Orall y Once a day 04/25/2020 Active Aspirin 81 Active Multivitamin Active Atorvastatin Calcium 40 MG 1 tablet Oral ly Once a day Active MiraLax (colon prep) 17 GM/SCOOP mixed with Gatorade or Crystal Light Orally begin at 5:00 p.m. the day before the procedure for 1 day 05/21/2022 Active Dulcolax (colon prep) 5 MG take at 3:00 p.m and 7:00p.m. Orally two tablets twice a day for one day for 1 day 05/20/2022 Active Lerlsxsrlc-XMBX-Puiargbx Active Sodium Bicarbonate 650 MG as directed Orally Active FLUoxetine HCl 40 MG 1 capsule Orally On ce a day Active Ferrous Sulfate 325 (65 Fe) MG as directed Orally Once a day Active Topiramate ER 50 MG 1 capsule Orally Onc e a day for 30 day(s) Active Fluticasone-Salmeterol 250-50mcg Active Vitamin D3 Active Terazosin HCl 1 MG 1 capsule at bedtime Orally Once a day for 30 day(s) Active Montelukast Sodium 10 MG 1 tablet Orally Once a day Active Immunizations Vaccine Route Administration Date Status Comme nts Influenza Unknown 08/09/2020 Administered Influenza Unknown 10/16/2021 Administered Problems Problem Type SNOMED Code ICD Code Onset Dates Problem Status W/U Status Risk Notes Problem 142076508 Colon cancer screening (Z12.11) Active confirmed Problem Esophageal reflu x (K21.9) Active confirmed Problem 87376377 Other dysphagia (R13.19) Active confirmed Problem 924213685 Gastroesophageal reflux disease without esophagitis (K21.9) Active confirmed Problem 539409912 Abnormal upper gastrointestinal barium series (R93.3) Active confirmed Problem 446708790 Esophageal dysmotility (K22.4) Active confirmed Problem 378245957 Anemia, unspecif ied type (D64.9) Active confirmed Problem 18701158 Dysphagia, unspecified type (R13.10) Active confirmed Problem 50784114 Diarrhea, unspecified type (R19.7) Active confirmed Problem 437436599 Gastroesophageal reflux disease, unspecified whether esophagitis present (K21.9) Active confirmed Plan Of Treatment Pending Test Test Name Order Date XR BARIUM SWALLOW-ESOPHAGUS 11/26/2017 XR BARIUM SWALLOW-ESOPHAGUS 06/11/2012 Future Test Test Name Order Date UPPER GI ENDOSCOPY BALLOOON DILATION OF ESOPH 07/09/2012 COLONOSCOPY 05/13/2013 UPPER GI ENDOSCOPY BALLOOON DILATION OF ESOPH 03/31/2015 UPPER GI ENDOSCOPY 08/26/2016 COLONOSCOPY 09/04/2017 UPPER GI ENDOSCOPY 05/20/2022 COLONOSCOPY 05/20/2022 Insurance Providers Payer Name Payer Address Payer Phone Subscriber Number Group Number Insured Name Patient Relationship to Insured Coverage Start Date Coverage End Date [facility] [employer] [address] [place] [address] [id number] SUSHANT BAPTISTE Self - patient is the insured Medical (General) History Medical History History ICD Code gerd hypertension elevated cholesterol depression asthma COPD CKD migraine headaches Surgical History Surgery Date(Month/Year) cholecystectomy hysterectomy Hip replacement disc surgery Breast cysts Tibial fracture right knee
--- OUTSIDE RECORDS SUMMARY | 2025-05-25 13:05 | XMS_ITS | Clinical Summary ---
Author Organization [facility] Address [address] [place] [phone] Phone Care Team Providers Care Technical Photographer Name Role Phone Fran Alegria MD Primary Care Provider [phone] Allergies Active Allergy Reactions Criticality Noted Date Comments Codeine Other (see comments) 07/14/2020 Hydrochlorothiazide Other (see comments) 2011 Ibuprofen 07/14/2020 Sulfa Antibiotics Hives 10/08/2017 Acetaminophen-Codeine 02/22/2021 Medications albuterol HFA (PROVENTIL HFA;VENTOLIN HFA) 108 (90 Base) MCG/ACT inhaler Inhale 2 puffs every 6 (six) hours if needed 09/11/20 20 Active butalbital-acet aminophen-caffe ine (FIORICET, ESGIC) 50-325-40 MG per tablet TAKE 1 TABLET BY MOUTH EVERY 12 HOURS NEEDED FOR HEADACHES. 02/01/20 21 Active cetirizine (ZyrTEC) 10 MG tablet Take 1 tablet by mouth 1 (one) time each day 12/14/19 21 Active cholecalciferol (VITAMIN D-3) 25 MCG (1000 UT) capsule Take 1 capsule by mouth 1 (one) time each day Active cyclobenzaprine (FLEXERIL) 10 MG tablet Take 10 mg by mouth 3 (three) times a day if needed 09/11/20 20 Active ferrous gluconate (FERGON) 324 (38 Fe) MG tablet Take 324 mg by mouth 01/25/20 21 Active fluticasone-kang meterol (ADVAIR DISKUS) 250-50 MCG/DOSE diskus inhaler Active Fluticasone-Ume clidin-Vilant (Trelegy Ellipta) 100-62.5-25 MCG/INH aerosol powder Inhale 1 puff daily 11/16/19 21 Active LORazepam (ATIVAN) 0.5 MG tablet TAKE 1 TABLET (0.5 MG TOTAL) BY MOUTH 2 (TWO) TIMES A DAY. 11/24/19 21 Active meclizine (ANTIVERT) 12.5 MG tablet 1 to 2 tablets every 8 hours as needed for vertigo 02/22/20 21 Active montelukast (SINGULAIR) 10 MG tablet 02/20/20 21 Active pantoprazole (PROTONIX) 40 MG EC tablet 02/20/20 21 Active terazosin (HYTRIN) 1 MG capsule 02/20/20 21 Active sodium chloride 3 % nebulizer solution Inhale 120 mg twice a day 03/01/20 21 Active Anoro Ellipta 62.5-25 MCG/INH aerosol powder 03/01/20 21 Active loperamide (Imodium A-D) 2 MG tablet Take 1 tablet (2 mg total) by mouth 3 (three) times a day if needed for diarrhea 30 tablet 1 03/04/20 22 Active sodium bicarbonate 650 MG tablet TAKE (2) TABLETS BY MOUTH THREE TIMES DAILY. 04/11/20 22 Active FLUoxetine (PROzac) 40 MG capsule Take 40 mg by mouth in the morning. 10/24/20 22 Active furosemide (LASIX) 40 MG tablet Take 1 tablet (40 mg total) by mouth See administration instructions 2 in the morning and one in the afternoon for 5 days then 1 twice a day 90 tablet 11 01/14/20 23 Active senna (SENOKOT) 8.6 MG tablet Take 1 tablet by mouth 1 (one) time each day Active atorvastatin (LIPITOR) 40 MG tablet 01/22/20 23 Active amLODIPine (NORVASC) 10 MG tablet 01/23/20 23 Active oxyCODONE (ROXICODONE) 5 MG immediate release tablet 02/05/20 23 Active hydrALAZINE 25 MG tablet 01/29/20 23 Active Hospital, Clinic, or Other Facility Administered Medication Ordered Dose Route Frequency Start Date End Date Status epoetin terrie (EPOGEN,PROCRIT) injection 30,000 UnitsIndications:Anemia due to Renal Failure 54919 Units IV Every 14 days 09/30/2022 Active Active Problems Problem Noted Date Diagnosed Date Screening for malignant neoplasm of colon 2022 Dysphagia 12/26/2022 Diarrhea 12/26/2022 Abnormal finding on diagnost ic imaging of other part of digestive tract 12/26/2022 Stage 5 chronic kidney disease 12/26/2022 Anemia in chronic kidney disease 12/26/2022 Chronic back pain 03/04/2022 Fall 03/04/2022 Neck pain 03/04/2022 Periprosthetic fracture 03/04/2022 Retinal hemorrhage 03/02/2021 Overview (05/15/2021): Last Assessment & Plan: Given her elevated ocular pressures and retinal hemorrhages per her daughter we will try to hold off on any steroids inhaled or systemic. Anemia of chronic disease 02/15/2021 Chronic kidney disease stage 3 02/15/2021 Hyperkalemia 02/15/2021 Hypertensive chronic kidney disease, unspecified, with chronic kidney disease stage I through stage IV, or unspecified 02/15/2021 Unsteadiness on feet 07/14/2020 Orthostatic hypotension 03/03/2020 Overview (02/15/2021): Last Assessment & Plan: Patient today complaining of a little bit of dizziness standing up sitting down. No vertigo but just lightheadedness. I told her that this was orthostatic symptoms and that she should be mindful to get enough water to keep her orthostatic pressure up. Still she would need to be careful not to overdo it with her history of chronic kidney disease. We recommend perhaps six 8 ounce glasses a day. Sensorineural hearing loss, bilateral 03/03/2020 Overview (02/15/2021): Last Assessment & Plan: The patient certainly was hard of hearing during the visit and I had to raise my voice so that she could hear me. Patient also stating that she was having trouble remembering things that people said. I told her that she would be unable to remember anything if she could not hear the people properly. She may have dementia but she should optimize her hearing before coming to the conclusion. I told her that we would have no problem referring her to a computer recycling worker to be treated. Hearing aids at [facility] can be a little bit less daunting when it comes to cost if not covered by insurance. Vitiligo 03/03/2020 Overview (02/15/2021): Last Assessment & Plan: During the visit we noticed that patient had vitiligo of the ears only, mainly it was around the ear canal meatus. The significance of the vitiligo to the patient's visit is not present but patient should be followed for diabetes as that is common with this condition. Chronic kidney disease stage 4 03/20/2018 Hypertension 02/26/2018 Overview (02/15/2021): Last Assessment & Plan: Blood pressure here was mildly elevated for systolic at 140 and she is currently taking hydralazine twice a day as it is difficult for her to take it 3 times a day. Patient is seeing Dr. Hidalgo for hypertension and chronic kidney disease and also seeing Dr. Alegria for primary care. I would not make any changes at this time for fear of over correcting blood pressure. We talked about her orthostatic symptoms please see below. Stricture of esophagus 11/13/2017 Weight loss 11/13/2017 Overview (02/15/2021): Last Assessment & Plan: Do not know the patient but she has had some weight loss she states. We talked to her about getting a supplementary nutritional shakes such as boost or Glucerna but she says that these are very expensive for her. I recommended she check out [employer] to see if they have a generic version that she can take maybe daily or twice a day to keep her weight up. Some of her weight loss might be due to her stage IV kidney chronic kidney disease. Any nutritional shake should be discussed with primary care because if there is a lot of phosphate in the product that would not be good for the chronic kidney disease. Resolved Problems Problem Noted Date Diagnosed Date Resolved Date Aftercare following joint replacement surgery 08/04/20 20 03/04/2022 Encounter for other specifie d surgical aftercare 08/04/2020 03/04/2022 Presence of right artificial knee joint 08/04/2020 03/04/2022 Anxiety disorder 07/19/2020 03/04/2022 At high risk for fall 07/14/20202021 Cognitive communication deficit 07/14/2020 03/04/2022 Dementia in other diseases c lassified elsewhere, unspecified severity, without behavioral disturbance, psychotic disturbance, mood disturbance, and anxiety 07/14/2020 03/04/2022 Difficulty in walking 07/14/20202021 Displaced bicondylar fractur e of right tibia, subsequent encounter for closed fracture with routine healing 07/14/2020 03/04/2022 Generalized muscle weakness 07/14/2020 03/04/2022 Major depressive disorder with single episode 07/14/2003/04/2022 Pain in right knee 07/14/2020 Allergic rhinitis 03/03/2020 03/04/2022 Overview (02/15/2021): Last Assessment & Plan: Patient's vertigo and nasal congestion and ringing of the ears associated most likely with allergies, Flonase prescribed take 2 sprays each nostril apply to the lateral aspect of the nasal passage and do not snort to the back of the throat. Please use at least 10 days straight before reevaluating. Continue loratidine daily. Atherosclerosis of left carotid artery 03/03/2020 03/04/2022 Overview (02/15/2021): Last Assessment & Plan: The patient had history of left-sided endarterectomy of the carotid artery. She has a scar as evidence for this procedure. Discussion with the patient about the finding and probably should have a follow-up for example a ultrasound study left carotid. Alternatively she should be sent back to the vascular surgeon who performed the original surgery should he still be in the area. Asthma 09/07/2019 03/04/2022 Acute frontal sinusitis 04/22/2019 05/0 06/2022 Pain around eye 03/20/2018 03/04/2022 Candidiasis of mouth 01/16/2018 022 Chronic low back pain 11/13/20172021 Chronic obstructive pulmonary disease 11/13/2017 03/04/2022 Overview (02/15/2021): Last Assessment & Plan: Recommend burst of prednisone and then drop back to 10mg daily. Hold on abx. Dental abscess 11/13/2017 03/04/2022 Cervical spondylosis with myelopathy 02/11/2013 03/04/2022 Encounters Date Type Department Care Team Description 05/24/2025 Treatment [facility] [address] [phone] Gavino Garcia MD End stage renal disease; Dependence on renal dialysis 05/21/2025 Treatment [facility] [address] [phone] Gavino Garcia MD End stage renal disease; Dependence on renal dialysis 03/29/2025 Treatment [facility] [address] [phone] Gavino Garcia MD End stage renal disease; Dependence on renal dialysis 03/24/2025 Treatment [facility] [address] [phone] Gavino Garcia MD End stage renal disease; Dependence on renal dialysis 03/17/2025 Treatment [facility] [address] [phone] Gavino Garcia MD End stage renal disease; Dependence on renal dialysis 03/10/2025 Treatment [facility] [address] [phone] Gavino Garcia MD End stage renal disease; Dependence on renal dialysis 03/03/2025 Orders Only [facility] [address] [phone] Gavino Garcia MD 03/03/2025 Treatment [facility] [address] [phone] Gavino Garcia MD End stage renal disease; Dependence on renal dialysis from Last 3 Months Immunizations Immunization Administration Dates Next Due Influenza Split 11/22/2014 Influenza Split High Dose Pr eservative Free IM 07/28/2018,07/01/2017,07/22/2016,07/21,07/28/2014,08/02/2013 Influenza TIV (IM) 07/07/2020,09/26/2015, 012 Influenza Vaccine, Quadrival ent, Adjuvanted 07/10/2020 Influenza, Unspecified 08/06/2022,2020,07/19/2021,08/09,07/27/2019,07/22/2011,08/08/2010 ,04/13/2010,08/08/2009 Pfizer SARS-COV-2 12/24/2020,12/04/2020 Pneumococcal Conjugate 13-Valent 017,07/18/2017,07/01/2017,06/08 Pneumococcal Polysaccharide 07/27/2019,0 07/01/2018,05/13/2014,05/13,08/24/2012,09/26/2006 Pneumococcal, Unspecified 07/27/2019 Tdap 02/25/2008 Family History Medical History Relation Comments Cancer Father Diabetes Father Gout Father Heart disease Father Hypertension Father Cancer Mother Diabetes Mother Heart disease Mother Hypertension Mother Hypertension Sibling 1 Diabetes Sibling 2 Cancer Sibling 3 Relation Status Comments Father Mother Sibling 1 Sibling 2 Sibling 3 Social History Tobacco Use Types Packs/Day Years Used Date Smoking Tobacco: Former Smokeless Tobacco: Never Tobacco Cessation:Counseling Given: Not Answered Alcohol Use Standard Drinks/Week Comments Yes 0 (1 standard drink = 0.6 oz pure alcohol) Alcoholic Drinks/day: Occasional social drink Comments Unknown Sex and Gender Information Value Date Recorded Sex Assigned at Not on file Legal Sex Female 4:41 PM EST Gender Identity Not on file Sexual Orientation Not on file Last Filed Vital Signs Vital Sign Reading Time Taken Comments Blood Pressure 110/60 02/06/2023 1:12 PM EDT Pulse 99 02/06/2023 1:12 PM EDT Temperature - - Respiratory Rate - - Oxygen Saturation 97% 02/06/2023 1:12 PM EDT Inhaled Oxygen Concentration - - Weight 44.2 kg (97 lb 6.4 oz) 02/06/2023 1:12 PM EDT Height 171.5 cm (5' 7.5 ) 02/06/2023 1:12 PM EDT Body Mass Index 15.03 02/06/2023 1:12 PM EDT Plan of Treatment Health Maintenance Due Date Last Done Comments Hepatitis B Vaccine (1 of 5 - Risk Dialysis 4-dose series) 1960 Influenza Vaccine (#1) 2025 4, 11/27/2023, 08/06/2022, Additional history exists Pneumococcal Vaccine: 50+ Years Completed 07/27/2019, 07/27/2019, 07/01/2018, Additional history exists Pneumococcal Vaccine: Peds ( 0 to 5 Years) and At-Risk Patients (6 to 49 Years) Discontinued 07/27/2019, 07/27/2019, 07/01/2018, Additional history exists Procedures Procedure Name Priority Date/Time Associated Diagnosis Comments HEMOGLOBIN Routine 05/21/2025 3:00 AM EDT HEMOGLOBIN Routine 05/19/2025 3:00 AM EDT HEMOGLOBIN Routine 05/14/2025 3:00 AM EDT HEMOGLOBIN Routine 05/12/2025 3:00 AM EDT HEMOGLOBIN Routine 05/10/2025 3:00 AM EDT HEPATITIS C ABS W/REFLEX RNA DETECTR Routine 05/05/2025 3:00 AM EDT CONFIRMATION TEST HCV Routine 05/05/2025 3:00 AM EDT HEPATITIS B SURFACE ANTIGEN W/REFL CONFIRM Routine 05/05/2025 3:00 AM EDT PROTEIN, TOTAL, SERUM Routine 05/05/2025 3:00 AM EDT TRANSFERRIN SATURATION Routine 3:00 AM EDT MAGNESIUM Routine 05/05/2025 3:00 AM EDT LIPID PANEL Routine 05/05/2025 3:00 AM EDT ELECTROLYTE PANEL Routine 05/05/2025 3:0 0 AM EDT CREATININE, SERUM Routine 05/05/2025 3:0 0 AM EDT LACTATE DEHYDROGENASE Routine 05/05/2025 3:00 AM EDT LIH (HC) Routine 05/05/2025 3:00 AM EDT GLUCOSE, RANDOM Routine 05/05/2025 3:00 AM EDT BUN/CREATININE RATIO Routine 05/05/2025 3:00 AM EDT AST Routine 05/05/2025 3:00 AM EDT BILIRUBIN, TOTAL Routine 05/05/2025 3:00 AM EDT ALT Routine 05/05/2025 3:00 AM EDT ALKALINE PHOSPHATASE Routine 05/05/2025 3:00 AM EDT CALCIUM PHOSPHORUS PRODUCT, ADJUSTED (HC) Routine 05/05/2025 3:00 AM EDT PTH, INTACT Routine 05/05/2025 3:00 AM EDT FERRITIN Routine 05/05/2025 3:00 AM EDT CBC AND DIFFERENTIAL Routine 05/05/2025 3:00 AM EDT KT/V NATURAL LOG, URR (HC) Routine 05/05/2025 3:00 AM EDT PHOSPHATE ( PHOSPHORUS) Routine 04/09/2025 3:00 AM EDT LIH (HC) Routine 04/09/2025 3:00 AM EDT POTASSIUM Routine 04/09/2025 3:00 AM EDT COLLECTION DATE (HC) Routine 04/09/2025 3:00 AM EDT HEMOGLOBIN Routine 04/05/2025 3:00 AM EDT FERRITIN Routine 03/31/2025 3:00 AM EDT PROTEIN, TOTAL, SERUM Routine 03/31/2025 3:00 AM EDT ELECTROLYTE PANEL Routine 03/31/2025 3:0 0 AM EDT TRANSFERRIN SATURATION Routine 3:00 AM EDT MAGNESIUM Routine 03/31/2025 3:00 AM EDT LIH (HC) Routine 03/31/2025 3:00 AM EDT GLUCOSE, RANDOM Routine 03/31/2025 3:00 AM EDT LACTATE DEHYDROGENASE Routine 03/31/2025 3:00 AM EDT CREATININE, SERUM Routine 03/31/2025 3:0 0 AM EDT BILIRUBIN, TOTAL Routine 03/31/2025 3:00 AM EDT BUN/CREATININE RATIO Routine 03/31/2025 3:00 AM EDT AST Routine 03/31/2025 3:00 AM EDT ALT Routine 03/31/2025 3:00 AM EDT ALKALINE PHOSPHATASE Routine 03/31/2025 3:00 AM EDT CALCIUM PHOSPHORUS PRODUCT, ADJUSTED (HC) Routine 03/31/2025 3:00 AM EDT HEPATITIS B SURFACE ANTIGEN W/REFL CONFIRM Routine 03/31/2025 3:00 AM EDT KT/V NATURAL LOG, URR (HC) Routine 03/31/2025 3:00 AM EDT CBC AND DIFFERENTIAL Routine 03/31/2025 3:00 AM EDT HEMOGLOBIN Routine 03/19/2025 3:00 AM EDT COLLECTION DATE (HC) Routine 03/19/2025 3:00 AM EDT HEMOGLOBIN Routine 03/17/2025 3:00 AM EDT LIH (HC) Routine 03/08/2025 3:00 AM EDT KT/V NATURAL LOG, URR (HC) Routine 03/08/2025 3:00 AM EDT CBC AND DIFFERENTIAL Routine 03/08/2025 3:00 AM EDT TRANSFERRIN SATURATION Routine 3:00 AM EDT PROTEIN, TOTAL, SERUM Routine 03/03/2025 3:00 AM EDT MAGNESIUM Routine 03/03/2025 3:00 AM EDT ELECTROLYTE PANEL Routine 03/03/2025 3:0 0 AM EDT LIH (HC) Routine 03/03/2025 3:00 AM EDT LACTATE DEHYDROGENASE Routine 03/03/2025 3:00 AM EDT GLUCOSE, RANDOM Routine 03/03/2025 3:00 AM EDT CREATININE, SERUM Routine 03/03/2025 3:0 0 AM EDT BUN/CREATININE RATIO Routine 03/03/2025 3:00 AM EDT BILIRUBIN, TOTAL Routine 03/03/2025 3:00 AM EDT ALT Routine 03/03/2025 3:00 AM EDT AST Routine 03/03/2025 3:00 AM EDT ALKALINE PHOSPHATASE Routine 03/03/2025 3:00 AM EDT CALCIUM PHOSPHORUS PRODUCT, ADJUSTED (HC) Routine 03/03/2025 3:00 AM EDT FERRITIN Routine 03/03/2025 3:00 AM EDT HEPATITIS B SURFACE ANTIGEN W/REFL CONFIRM Routine 03/03/2025 3:00 AM EDT KT/V NATURAL LOG, URR (HC) Routine 03/03/2025 3:00 AM EDT CBC AND DIFFERENTIAL Routine 03/03/2025 3:00 AM EDT from Last 3 Months Results * (ABNORMAL) Hemoglobin (05/21/2025 3:00 AM EDT) Only the most recent of8 resultswithin the time period is included. Hgb 10.5(L) 11.2 - 15.7 g/dL [facility] Hemoglobin x 3 31.5(L) 33.6 - 47.1 g/dL [facility] 05/21/2025 3:00 AM EDT 05/23/2025 12:19 PM EDT us Gavino Garcia MD LAB BLOOD ORDERABLES Final Result Performing Organization Address [facility] de Phone Number APS [facility] [address] [place] [address] * Confirmation Test HCV (05/05/2025 3:00 AM EDT) Hep C Ab Confirmation Not needed [facility] 05/05/2025 3:00 AM EDT 05/06/2025 3:51 PM EDT us Gavino Garcia MD LAB BLOOD ORDERABLES Final Result Performing Organization Address [facility] de Phone Number [facility]PS [facility] [address] [place] [address] * LIH (05/05/2025 3:00 AM EDT) Only the most recent of5 resultswithin the time period is included. Pathologist [facility] Lipemia Normal Normal [facility] Icterus Normal Normal [facility] Hemolysis Normal Normal [facility] 05/05/2025 3:00 AM EDT 05/06/2025 3:54 PM EDT Gavino Garcia MD LAB HISTORICA [id number] RESULTS Final Result Performing Organization Address [facility] de Phone Number [facility]PS [facility] [address] [place] [address] * (ABNORMAL) Kt/V Natural Log, URR (05/05/2025 3:00 AM EDT) Only the most recent of4 resultswithin the time period is included. Pathologist [facility] Treatment Time 200 min [facility] Pre-Weight, lb 37.9 kg [facility] Post-Weight, lb 37.1 kg [facility] Ultrafiltration Rate 6 <=13 mL/kg/hr [facility] Comment: Recommend achieving Ultrafiltration Rate (UFR) <=10 mL/kg/hr References: Celeste SALGUERO et al. Kidney Int. 2010; 79(2):250-257 BUN 31(H) 7 - 25 mg/dL [facility] BUN Post Dialysis 6(L) 7 - 25 mg/dL [facility] UREA REDUCTION RATIO (%) 81 >=65 % [facility] Kt/V Natural Log 1.86 >=1.2 [facility] 05/05/2025 3:00 AM EDT 05/06/2025 3:41 PM EDT Gavino Garcia MD LAB HISTORICA [id number] RESULTS Final Result Performing Organization Address [facility] Co de Phone Number [facility] [address] [place] [address] * (ABNORMAL) Calcium Phosphorus Product, Adjusted (05/05/2025 3:00 AM EDT) Only the most recent of3 resultswithin the time period is included. Pathologist [facility] Albumin 3.3(L) 3.6 - 5.4 g/dL [facility] Calcium 7.9(L) 8.6 - 10.3 mg/dL [facility] Phosphorus, Serum 5.0 2.5 - 5.0 mg/dL [facility] Ca*PO4 39.5 <55.0 mg2/dL2 [facility] Calcium, Adjusted Total 8.5(L) 8.6 - 10.3 mg/dL [facility] CA*PO4 CORRCTD 42.5 <55.0 mg2/dL2 [facility] 05/05/2025 3:00 AM EDT 05/06/2025 3:54 PM EDT Gavino Garcia MD LAB HISTORICA [id number] RESULTS Final Result Performing Organization Address [facility] Co de Phone Number [facility] [address] [place] [address] * HEPATITIS C ABS W/REFLEX RNA DETECTR (05/05/2025 3:00 AM EDT) Hep C Virus Ab Non-Reacti ve Non-Reacti ve [facility] 05/05/2025 3:00 AM EDT 05/06/2025 3:54 PM EDT us Gavino Garcia MD LAB HISTORICA [id number] RESULTS Final Result Performing Organization Address [facility] Co de Phone Number [facility] [address] [place] [address] * Hepatitis B Surface Ag w/Reflex Confirmation (05/05/2025 3:00 AM EDT) Only the most recent of3 resultswithin the time period is included. Hep B Surface Antigen Negative Negative [facility] 05/05/2025 3:00 AM EDT 05/06/2025 3:54 PM EDT us Gavino Garcia MD LAB BLOOD ORDERABLES Final Result Performing Organization Address [facility] de Phone Number [facility] [address] [place] [address] * BUN/CREATININE RATIO (05/05/2025 3:00 AM EDT) Only the most recent of3 resultswithin the time period is included. BUN/Creatinine Ratio 5.2 <=23.0 [facility] 05/05/2025 3:00 AM EDT 05/06/2025 3:54 PM EDT us Gavino Garcia MD LAB HISTORICA [id number] RESULTS Final Result Performing Organization Address [facility] de Phone Number [facility] [address] [place] [address] * (ABNORMAL) TSAT (05/05/2025 3:00 AM EDT) Only the most recent of3 resultswithin the time period is included. Iron 53 50 - 170 ug/dL [facility] Transferrin 167(L) 250 - 380 mg/dL [facility] TIBC 234 211 - 406 ug/dL [facility] Iron Saturation (TSat) 23 22 - 52 % [facility] 05/05/2025 3:00 AM EDT 05/06/2025 3:54 PM EDT us Gavino Garcia MD LAB BLOOD ORDERABLES Final Result [facility] [address] [place] [address] * (ABNORMAL) CBC and Differential (05/05/2025 3:00 AM EDT) Only the most recent of4 resultswithin the time period is included. DIFFERENTIAL MANUAL, 2 Not Indicated [facility] White Blood Cells 10.7(H) 4.0 - 10.0 K/uL [facility] RBC 2.40(L) 3.93 - 5.22 M/uL [facility] Hgb 7.5(L) 11.2 - 15.7 g/dL [facility] Hemoglobin x 3 22.5(L) 33.6 - 47.1 g/dL [facility] Hematocrit 24.3(L) 34.1 - 44.9 % [facility] MCV 101.3(H) 79.4 - 94.8 fL [facility] MCH 31.3 25.6 - 32.2 pg [facility] MCHC 30.9(L) 32.2 - 35.5 g/dL [facility] RDW 21.2(H) 11.7 - 14.4 % [facility] Platelets 345 182 - 369 K/uL [facility] Comment:Verified by repeat a nalysis Neutrophils Relative 82.7(H) 34.0 - 71.1 % [facility] Lymphocytes Relative 10.9(L) 19.3 - 51.7 % [facility] Monocytes 2.1(L) 4.7 - 12.5 % [facility] Eosinophils Relative 1.1 0.7 - 5.8 % [facility] Basophils Relative 2.7(H) 0.1 - 1.2 % [facility] Immature Granulocytes 0.5 0.0 - 1.0 % [facility] 05/05/2025 3:00 AM EDT 05/06/2025 3:51 PM EDT us Gavino Garcia MD LAB BLOOD ORDERABLES Final Result Performing Organization Address [facility] de Phone Number [facility] [address] [place] [address] * (ABNORMAL) ALT (05/05/2025 3:00 AM EDT) Only the most recent of3 resultswithin the time period is included. ALT (SGPT) 51(H) 10 - 49 U/L [facility] 05/05/2025 3:00 AM EDT 05/06/2025 3:54 PM EDT Gavino Garcia MD LAB BLOOD ORDERABLES Final Result Performing Organization Address [facility] de Phone Number [facility] [address] [place] [address] * (ABNORMAL) AST (05/05/2025 3:00 AM EDT) Only the most recent of3 resultswithin the time period is included. AST (SGOT) 58(H) <34 U/L [facility] 05/05/2025 3:00 AM EDT 05/06/2025 3:54 PM EDT us Gavino Garcia MD LAB BLOOD ORDERABLES Final Result Performing Organization Address [facility] de Phone Number [facility] [address] [place] [address] * (ABNORMAL) Protein, total (05/05/2025 3:00 AM EDT) Only the most recent of3 resultswithin the time period is included. Total Protein 6.3(L) 6.4 - 8.9 g/dL [facility] 05/05/2025 3:00 AM EDT 05/06/2025 3:54 PM EDT us Gavino Garcia MD LAB BLOOD ORDERABLES Final Result Performing Organization Address [facility]/State/ZIP Co de Phone Number [facility] [address] [place] [address] * (ABNORMAL) Alkaline phosphatase (05/05/2025 3:00 AM EDT) Only the most recent of3 resultswithin the time period is included. Alkaline Phosphatase 190(H) 46 - 116 U/L [facility] 05/05/2025 3:00 AM EDT 05/06/2025 3:54 PM EDT Gavino Garcia MD LAB BLOOD ORDERABLES Final Result Performing Organization Address [facility] Co de Phone Number [facility] [address] [place] [address] * PTH, Intact (05/05/2025 3:00 AM EDT) PTH, Intact 406 160 - 721 pg/mL [facility] Comment: Suggested (KDIGO) ESRD maintenance range is two to nine times the upper normal limit (80.1 pg/mL) for the laboratory. 05/05/2025 3:00 AM EDT 05/06/2025 3:54 PM EDT Gavino Garcia MD LAB BLOOD ORDERABLES Final Result Performing Organization Address [facility] [facility] Co de Phone Number [facility] [address] [place] [address] * Magnesium (05/05/2025 3:00 AM EDT) Only the most recent of3 resultswithin the time period is included. Magnesium 2.4 1.9 - 2.7 mg/dL [facility] 05/05/2025 3:00 AM EDT 05/06/2025 3:54 PM EDT Gavino Garcia MD LAB BLOOD ORDERABLES Final Result Performing Organization Address [facility] Co de Phone Number [facility] [address] [place] [address] * Lactate dehydrogenase (05/05/2025 3:00 AM EDT) Only the most recent of3 resultswithin the time period is included. LDH 224 120 - 246 U/L [facility] 05/05/2025 3:00 AM EDT 05/06/2025 3:54 PM EDT Gavino Garcia MD LAB BLOOD ORDERABLES Final Result Performing Organization Address [facility] Co de Phone Number [facility] [address] [place] [address] * Glucose, random (05/05/2025 3:00 AM EDT) Only the most recent of3 resultswithin the time period is included. Glucose 79 70 - 99 mg/dL [facility] Comment: ADA guidelines outline the following fasting glucose ranges: Normal: <100 Prediabetes: 100-125 Diabetes: >125 05/05/2025 3:00 AM EDT 05/06/2025 3:54 PM EDT us Gavino Garcia MD LAB BLOOD ORDERABLES Final Result Performing Organization Address [facility] de Phone Number [facility] [address] [place] [address] * (ABNORMAL) Ferritin (05/05/2025 3:00 AM EDT) Only the most recent of3 resultswithin the time period is included. Ferritin 1,220(H) 10 - 291 ng/mL [facility] 05/05/2025 3:00 AM EDT 05/06/2025 3:54 PM EDT us Gavino Garcia MD LAB BLOOD ORDERABLES Final Result Performing Organization Address [facility] Co de Phone Number [facility] [address] [place] [address] * (ABNORMAL) Creatinine, serum (05/05/2025 3:00 AM EDT) Only the most recent of3 resultswithin the time period is included. Creatinine 5.98(H) 0.55 - 1.02 mg/dL [facility] 05/05/2025 3:00 AM EDT 05/06/2025 3:54 PM EDT Gavino Garcia MD LAB BLOOD ORDERABLES Final Result Performing Organization Address [facility] Co de Phone Number [facility] [address] [place] [address] * Bilirubin, total (05/05/2025 3:00 AM EDT) Only the most recent of3 resultswithin the time period is included. Total Bilirubin 0.3 0.3 - 1.2 mg/dL [facility] 05/05/2025 3:00 AM EDT 05/06/2025 3:54 PM EDT Gavino Garcia MD LAB BLOOD ORDERABLES Final Result Performing Organization Address [facility] de Phone Number [facility] [address] [place] [address] * (ABNORMAL) Lipid panel (05/05/2025 3:00 AM EDT) Cholesterol 159 mg/dL [facility] Comment: Optimal: <200 Borderline: 200-239 High Risk: >239 Triglycerides 96 mg/dL [facility] Comment: Optimal: <150 Borderline: 150-200 High Risk: >200 HDL 58(L) mg/dL [facility] Comment: Optimal: >59 Borderline: 40-59 High Risk: <40 LDL-Calc 82 mg/dL [facility] Comment: Optimal: <100 Borderline: 100-159 High Risk: >159 VLDL Cholesterol Leonardo 19 mg/dL [facility] Comment: Optimal: <30 Borderline: 30-40 High Risk: >40 Chol/HDL Ratio 2.7 [facility] Comment: Optimal: <3.3 High Risk: >6.2 05/05/2025 3:00 AM EDT 05/06/2025 3:54 PM EDT Gavino Garcia MD LAB BLOOD ORDERABLES Final Result Performing Organization Address [facility] Co de Phone Number [facility] [address] [place] [address] * Electrolyte panel (05/05/2025 3:00 AM EDT) Only the most recent of3 resultswithin the time period is included. Sodium 138 136 - 145 mEq/L [facility] Potassium 4.6 3.4 - 5.0 mEq/L [facility] Chloride 98 98 - 107 mEq/L [facility] Bicarbonate (CO2) 26 21 - 31 mEq/L [facility] Anion Gap 14 3 - 14 mEq/L [facility] 05/05/2025 3:00 AM EDT 05/06/2025 3:54 PM EDT Gavino Garcia MD LAB BLOOD ORDERABLES Final Result Performing Organization Address [facility] de Phone Number [facility] [address] [place] [address] * Collection Date (04/09/2025 3:00 AM EDT) Only the most recent of2 resultswithin the time period is included. Collection Date See Comment [facility] Comment: Patient sample received may exceed specimen stability, based on the collection date electronically provided. When reviewing patient results, verify collection information and consider specimen stability before acting on any critical or panic results. 04/09/2025 3:00 AM EDT Gavino Garcia MD LAB HISTORICA [id number] RESULTS Final Result Performing Organization Address [facility] de Phone Number [facility] [address] [place] [address] * Potassium (04/09/2025 3:00 AM EDT) Potassium 3.7 3.4 - 5.0 mEq/L [facility] 04/09/2025 3:00 AM EDT 04/12/2025 2:42 PM EDT Gavino Garcia MD LAB BLOOD ORDERABLES Final Result Performing Organization Address [facility]/ZIP Co de Phone Number [facility] [address] [place] [address] * Phosphorus (04/09/2025 3:00 AM EDT) Phosphorus, Serum 2.8 2.5 - 5.0 mg/dL [facility] 04/09/2025 3:00 AM EDT 04/12/2025 2:42 PM EDT Gavino Garcia MD LAB BLOOD ORDERABLES Final Result Performing Organization Address [facility] Co de Phone Number [facility] [address] [place] [address] from Last 3 Months Insurance [facility] Care Teams Technical Photographer Relationship Specialty Start Date End Date Fran Alegria MD [address] [place] [address] PCP - General 11/06/20
--- OUTSIDE RECORDS SUMMARY | 2025-05-25 13:05 | XMS_ITS ---
Author Organization [facility] Care Team Providers Care Document Control Coordinator Name Role Phone Ciaran Frederick Unavailable Unavailable Va Villalobos Unavailable Unavailable Dolores German Unavailable Unavailable Poppy Luis Unavailable Unavailable Saulo Joseph Unavailable Unavailable Allergies and adverse reactions Code CodeSystem Substance Reaction Severity StartDate Concern Status 145380536 SNOMED CT Sulfa Antibiotics Unknown 07/14/2020 active 5640 RXNORM Ibuprofen Unknown 07/14/2020 active 2670 RXNORM Codeine Unknown 07/14/2020 active Care Team Name Role Address Phone Organization Dates Dolores German PCP [address] [facility], [place], [address], [place] (Office): [facility] 08/04/2020 - 09/03/2020 Ciaran Frederick [address], [place], [address], [facility] (Office): : [facility] 08/04/2020 - 09/03/2020 Va Villalobos [address], [place], [address], [facility] (Office): [facility] 08/04/2020 - 09/03/2020 Poppy Luis [address], [place], [address], [facility] (Office): [facility] 08/04/2020 - 09/03/2020 Saulo Joseph [address], [place], [address], [facility] (Office): : [facility] 08/04/2020 - 09/03/2020 Immunizations Immunization Status Vaccine Details Vaccine Code CodeSystem Choco e Notes Influenza completed Influenza, split virus, trivalent, injectable, contains preservative 141 CVX created date: 07/19/2020 administered date: 07/07/2020 Mental Status Section Date Assessment Total Score Description 09/03/2020 BIMS 15 cognitively int act CAM 0 No delirium ind icated PHQ-9 00 08/10/2020 BIMS 15 cognitively int act CAM 0 No delirium ind icated PHQ-9 00 Problems Problem # Description Date of onset Resolved Date Code CodeSystem Concern Status 1 AFTERCARE FOLLOWING JOINT REPLACEMENT SURGERY [address] active 2 ENCOUNTER FOR OTHER SPECIFIED SURGICAL AFTERCARE [address] active 3 PRESENCE OF RIGHT ARTIFICIAL KNEE JOINT [address] active 4 ALLERGIC RHINITIS, UNSPECIFIED [address] active 5 ANXIETY DISORDER, UNSPECIFIED [address] active 6 GASTRO-ESOPHAGEAL REFLUX DISEASE WITHOUT ESOPHAGITIS [address] active 7 CHRONIC KIDNEY DISEASE, UNSPECIFIED [address] active 8 CHRONIC OBSTRUCTIVE PULMONARY DISEASE, UNSPECIFIED [address] active 9 COGNITIVE COMMUNICATION DEFICIT [address] active 10 DEMENTIA IN OTHER DISEASES CLASSIFIED ELSEWHERE, UNSPECIFIED SEVERITY, WITHOUT BEHAVIORAL DISTURBANCE, PSYCHOTIC DISTURBANCE, MOOD DISTURBANCE, AND ANXIETY [address] active 11 DIFFICULTY IN WALKING, NOT ELSEWHERE CLASSIFIED [address] active 12 DISPLACED BICONDYLAR FRACTURE OF RIGHT TIBIA, SUBSEQUENT ENCOUNTER FOR CLOSED FRACTURE WITH ROUTINE HEALING [address] active 13 ESSENTIAL (PRIMARY) HYPERTENSION [address] active 14 HISTORY OF FALLING [address] active 15 HYPERLIPIDEMIA, UNSPECIFIED [address] active 16 MAJOR DEPRESSIVE DISORDER, SINGLE EPISODE, UNSPECIFIED [address] active 17 MUSCLE WEAKNESS (GENERALIZED) [address] active 18 PAIN IN RIGHT KNEE [address] active 19 UNSPECIFIED DEMENTIA, UNSPECIFIED SEVERITY, WITHOUT BEHAVIORAL DISTURBANCE, PSYCHOTIC DISTURBANCE, MOOD DISTURBANCE, AND ANXIETY [address] active 20 UNSTEADINESS ON FEET [address] active Reason for Referral No Reasons for Referral Entered Social History Social History Observation Description Start Date End Date Code Code System Current Smoking Status Tobacco smoking consumption unknown 774878192 SNOMED CT Sex Assigned At Female 1940 35398-1 [facility] Gender Identity Vital Signs Code Code System Vitals Name Values and Units Timing Information 82112-1 [facility] Pain Level Value=0.0 09/03/2020 95310-7 [facility] O2 % BldC Oximetry Value=97.0 Units= % 09/03/2020 9279-1 INC Respiratory Rate Value=18.0 Units=/m in 09/03/2020 8867-4 INC Heart rate Value=68.0 Units=/min 05/2020 8310-5 INC Body Temperature Value=97.0 Units= F 09/03/2020 8462-4 LOINC Blood Pressure-Diastolic Value=76 Un its=mmHg 09/03/2020 8480-6 LOINC Blood Pressure-Systolic Icyox=955 Un its=mmHg 09/03/2020 18115-0 [facility] Weight Wvzxg=295.8 Units=Lbs 12/2019 8302-2 LOINC Height Value=60.0 Units=Inches 07/18/2020
--- OUTSIDE RECORDS SUMMARY | 2025-05-25 13:05 | XMS_ITS | Clinical Summary ---
Author Organization [facility] Address [address] [place] [address] Care Team Providers Care Documentation Lead Name Role Phone Unavailable Primary Care Provider Unavailabl e Social History Tobacco Use Types Packs/Day Years Used Date Smoking Tobacco: Never Assessed Comments Unknown Sex and Gender Information Value Date Recorded Sex Assigned at Not on file Legal Sex Female 2:10 PM EDT Gender Identity Not on file Sexual Orientation Not on file Plan of Treatment Health Maintenance Due Date Last Done Comments DTaP/Tdap/Td Vaccines (1 - Tdap) 1959 Pneumococcal Vaccines 50+ (1 of 1 - PCV) 1989 Zoster (Shingles) Vaccine (1 of 2) 1989 RSV Vaccine 60 years and old er and Patients (1 - 1-dose 75+ series) 2014 COVID-19 Vaccine (2023-2 5 season) 2024 Hepatitis B Vaccines Aged Out No long er eligible based on patient's age to complete this topic
[2025-05-25] MEDS: Potassium Chloride ER 20 MEQ TAB.ER.PRT PO (14:22)
[2025-05-25] MEDS: iohexoL 350 MG/ML 100 ML INFUS..BTL IV (15:17)
--- NOTE | 2025-05-25 15:18 | PC.NURSE ---
Patient presents to ED c/o abd pain lasting longer then 24hrs. Pain rated 8/10 non radiating. Patient on dialysis T-Thur-Sat patient went to dialysis on Friday. Fistula right arm + bruit thrill. Lab work showed K+ 2.9 administered PO potassium. Patient became nauseous and vomited, administered zofran per provider with good effect. Ct w/o contrast showed free fluid in ABD. Provider ordered CT w Con. Patient at CT now results pending. Spoke with patients daughter Jaironece, Patient allowed information to be shared with family. Laurece updated on plan. 20G in L AC
--- NOTE | 2025-05-25 17:58 | PM.IMHP ---
History of Present Illness Date of Service: 05/25/25 Chief Complaint: abd pain 84F PMH ESRD on HD, hfref, cad, htn, hld, copd, vascular dementia, left renal cancer, FTT, unspecified myeloproliferative disease, presented with abd pain. patient was recently discharged from [facility] to rehab, after prolonged stay (04/12/25-05/03/25) for fall, left hip fracture, upper gi bleed, cdif. Now being sent from rehab for complaints of abdominal pain. In ED patient noted to have thrombocytosis of 1066, hypokalemia of 2.9, imaging revealed known left renal mass with question of bony metastases, question of rectal wall thickening, subacute left pelvic fracture, chronic compression fracture of L2, chronic inferior right pubic ramus fracture. Review of Systems Review of Systems: Yes all other systems are reviewed and are negative [facility] Medical History ESRD needing dialysis Chronic kidney disease requiring chronic dialysis Compression fx, lumbar spine ESRD (end stage renal disease) CKD (chronic kidney disease) stage 4, GFR 15-29 ml/min Metabolic acidosis Hyperkalemia FLORECITA (acute kidney injury) Anemia CHF (congestive heart failure) Headache Hypertensive urgency CKD (chronic kidney disease) Anxiety and depression Hiatal hernia Chronic anemia Hyperlipidemia Back pain Osteoarthritis Anemia COPD (chronic obstructive pulmonary disease) GERD (gastroesophageal reflux disease) Asthma Hypertension Surgical History Hx of breast biopsy History of esophagogastroduodenoscopy (EGD) Hx of colonoscopy History of left-sided carotid endarterectomy History of total right hip arthroplasty History of open reduction and internal fixation (ORIF) procedure History of cholecystectomy H/O of rectopexy History of bowel resection H/O: hysterectomy Social History Household Members: Children Household Members Other:: DAUGHTER LAURECE Housing: Apartment Do you presently have visiting nurse or other home services: Yes Unable to assess alcohol history related to: Unknown Alcohol intake: current Alcohol intake frequency: holidays/special occasions only Comment: tylenol 325mg po given & warm blanket, layed on left side Patient Tobacco Use Status: Former Tobacco user Tobacco use type: Cigarette Years Smoked: 20 Smoked in Last 30 Days: No e-Cigarette/Vaping Use: Never Used Second Hand Smoke Exposure: No Use of substances other than those prescribed or required for medical reasons: No Substance Use Type: Marijuana Advance Directives: Yes Advance Directives on File: Yes Advance Directives Date on File: 09/04/20 service: No Current occupational status: retired Meds Allergies Allergy/AdvReac Type Severity Reaction Status Date / Time codeine (Codeine) Allergy Mild RASH Verified 05/25/25 11:44 Sulfa (Sulfonamide Allergy Mild HIVES Verified 05/25/25 11:44 Antibiotics) (Sulfa (Sulfonamides)) ibuprofen (From Motrin) AdvReac Mild STOMACH Verified 05/25/25 11:44 UPSET, Rectal bleeding Active Medications: Current Medications Acetaminophen (Acetaminophen 325 Mg Tablet) 650 mg PO Q6H PRN PRN Reason: Pain, Mild 1-3,fever,headache Calcium Carbonate (Calcium Carbonate 750 Mg Tab.Chew) 750 mg PO Q4H PRN PRN Reason: Heartburn Heparin Sodium (Porcine) (Heparin Sodium,Porcine 5,000 Unit/Ml Vial) 5,000 unit SUBCUT Q12H TONIO Magnesium Hydroxide (Milk Of Magnesia 30 Ml Oral.Susp) 30 ml PO DAILY PRN PRN Reason: Constipation Melatonin (Melatonin 3 Mg Tablet) 6 mg PO BEDTIME PRN PRN Reason: Insomnia Sodium Chloride (0.9 % Sodium Chloride Flush 3 Ml Syringe) 3 ml IVFLUSH QSHIFT TONIO Home Medications ?Medication ?Instructions ?Recorded ?Confirmed ?Last Taken ?Type montelukast 10 mg tablet 10 mg PO BEDTIME 07/28/20 06/27/24 06/25/24 History lorazepam 0.5 mg tablet 0.5 mg PO BID PRN Anxiety 08/01/20 06/27/24 12/09/22 History pantoprazole 40 mg tablet,delayed 40 mg PO DAILY 08/01/20 06/27/24 06/25/24 History release atorvastatin 40 mg tablet 40 mg PO DAILY 06/19/22 06/27/24 06/25/24 History xlitrahaqv-kxyvgkakiuzee-ztwlrqvo 1 tab PO Q12H PRN Headache 12/09/22 06/27/24 Unknown History 50 mg-325 mg-40 mg tablet sevelamer carbonate 800 mg tablet 800 mg PO TIDWM 09/25/23 06/27/24 06/25/24 History gabapentin 100 mg capsule 100 mg PO BEDTIME PRN Pain 11/27/23 06/27/24 11/25/23 History acetaminophen 500 mg tablet 1,000 mg PO TID PRN Pain 05/25/25 05/25/25 Unknown History albuterol sulfate 90 mcg/actuation 2 puff inhalation Q4H PRN 05/25/25 05/25/25 Unknown History aerosol inhaler Shortness Of Breath Or Wheezing aspirin 81 mg tablet 81 mg PO DAILY 05/25/25 05/25/25 Unknown History bisacodyl 10 mg rectal suppository 10 mg CA DAILY PRN Constipation 05/25/25 05/25/25 Unknown History calcitriol 0.5 mcg capsule 0.5 mcg PO DAILY 05/25/25 05/25/25 Unknown History clopidogrel 75 mg tablet 75 mg PO DAILY 05/25/25 05/25/25 Unknown History fluticasone 100 mcg-salmeterol 50 1 inh inhalation Q12H 05/25/25 05/25/25 Unknown History mcg/dose blistr powdr for inhalation (Advair Diskus) lidocaine 4 % topical cream 1 appl topical TID PRN Pain 05/25/25 05/25/25 Unknown History lidocaine 4 % topical patch 1 patch topical Q12H PRN Pain 05/25/25 05/25/25 Unknown History midodrine 10 mg tablet 5 mg PO TID 05/25/25 05/25/25 Unknown History naloxone 0.4 mg/mL injection 0.4 mg subcut Q3M PRN Opioid 05/25/25 05/25/25 Unknown History solution Overdose oxycodone 5 mg tablet 5 mg PO Q4H PRN Pain 05/25/25 05/25/25 Unknown History sennosides 8.6 mg-docusate sodium 2 tab-cap PO BID 05/25/25 05/25/25 Unknown History 50 mg tablet (Senna with Docusate Sodium) sodium phosphates 19 gram-7 118 ml CA DAILY PRN Constipation 05/25/25 05/25/25 Unknown History gram/118 mL enema (Fleet Enema) trazodone 50 mg tablet 25 mg PO BEDTIME 05/25/25 05/25/25 Unknown History Physical Exam Vital Signs and Narrative: Vital Signs: Last Vital Signs Temp 97.9 F 05/25/25 16:28 Pulse 68 05/25/25 16:28 Resp 16 05/25/25 16:28 BP 126/59 L 05/25/25 16:28 Pulse Ox 93 05/25/25 16:28 O2 Del Method Room Air 05/25/25 16:28 BMI result Body Mass Index 17.1 alert, frail, no acute distress, abd soft, talkative but poor insight. Results Labs 05/25/25 12:15 05/25/25 12:15 Labs: Laboratory Results - last 24 hr 05/25/25 12:15 MCV 94.4 MCH 29.9 MCHC 31.7 RDW 18.0 H Plt Count 1066 H* D MPV 9.9 Immature Gran % (Auto) 2.1 H Neut % (Auto) 78.4 H Lymph % (Auto) 14.1 L Gladwin % (Auto) 2.0 Eos % (Auto) 1.4 Baso % (Auto) 2.0 Lymph # (Auto) 1.6 Gladwin # (Auto) 0.2 Eos # (Auto) 0.2 Baso # (Auto) 0.2 Abs Immat Gran (auto) 0.23 H Absolute Neuts (auto) 8.6 H Absolute Nucleated RBC 0.090 H Nucleated RBC % (auto) 0.8 H Anion Gap 16 Estim Creat Clear Calc 5.0 Estimated GFR 8 Random Glucose 75 Calcium 8.1 L D Total Bilirubin 0.4 AST 35 H ALT 7 Alkaline Phosphatase 156 H Total Protein 6.7 Albumin 3.0 L Imaging Radiologist's Impressions: Impressions Abdomen/Pelvis CT 05/25/25 11:45 IMPRESSION: Limited examination due to lack of intravenous and oral contrast material. Small amount of free fluid in the abdomen and pelvis. Large amount of stool throughout the colon. Electronically signed by: Noah Hoang MD 05/25/2025 01:09 PM EDT Abdomen/Pelvis CT 05/25/25 14:07 IMPRESSION: 14 mm solid enhancing mass in the superior pole left kidney is consistent with renal cell carcinoma until proven otherwise. There is diffuse groundglass density throughout the imaged portions of the spine which is changed when compared to the prior study from one year ago. This raises question of a diffuse marrow replacing process which would include metastatic disease/malignancy. Questionable rectal wall thickening raises question of ischemia, neoplasm, and infection. Acute versus subacute fracture of the left inferior pubic ramus, left iliopubic junction/eminence, and posterior facet of the left greater trochanter. Chronic compression fracture of L2 and chronic inferior right pubic ramus fracture. Chronic biliary and pancreatic duct dilation. Chronic kidney disease. Fleischner guidelines were followed. Electronically signed by: Tommie Curtis MD 05/25/2025 03:52 PM EDT RP Venous Duplex 05/25/25 14:07 IMPRESSION: No evidence of deep venous thrombosis involving the bilateral lower extremities. Electronically signed by: Tito Flaherty MD 05/25/2025 02:31 PM EDT RP Assessment and Plan (1) Anemia in chronic kidney disease: Status: Acute Plan 84F PMH ESRD on HD, hfref, cad, htn, hld, copd, vascular dementia, left renal cancer, FTT, unspecified myeloproliferative disease, presented with abd pain abd pain appears resolved, advance diet as tolerated acute hpyokalemia replace and monitor Subacute left pelvic fracture Continue weight-bearing as tolerated End-stage renal disease Continue hemodialysis Phosphate binders Severe protein calorie malnutrition due to likely metastatic renal cancer Discussed with patient's daughter would consider hospice if able to continue dialysis Unspecified myeloproliferative Given dose of Hydrea, given poor prognosis unlikely to benefit from workup Vascular dementia At baseline CAD Aspirin, statin, Plavix Chronic systolic CHF Does not tolerate neuro hormonal due to hypotension DVT prophylaxis with heparin subQ DNR/DNI Given hypokalemia need for dialysis expected require at least 2 midnights inpatient Quality Stroke Does the patient have a stroke diagnosis?: No VTE Prior VTE?: No VTE Risk Level:: Medical - moderate - high VTE Device Contraindication: Treatment Not Indicated VTE Drug Contraindication: N/A - Med Ordered
--- NOTE | 2025-05-25 18:09 | PHA.MEDREC ---
Addendum entered by Arabella Garcia [facility] 05/25/25 18:30: reviewed Original Note: Pharmacy Consult ? Medication Reconciliation Pharmacy has completed the medication reconciliation. Utilized list from [facility].
--- NOTE | 2025-05-25 18:56 | PC.NURSE ---
This RN reached out to Provider Del to see if they wanted a repeat potassium. Provider said they will repeat in the AM
[2025-05-25] MEDS: traZODone HCL 25 MG HALFTAB PO (20:19)
[2025-05-25] MEDS: 0.9 % Sodium Chloride Flush 3 ML SYRINGE IVFLUSH (20:32)
[2025-05-26] MEDS: oxyCODONE HCl Immed Release 5 MG TABLET PO ×5 (01:16→21:39)
[2025-05-26 06:08] LABS: Hematocrit 30.5 % (37.0-47.0); Hemoglobin 9.6 g/dl (12.0-16.0); Mean Corpuscular HGB Conc 31.5 g/dl (31.0-35.0); Mean Corpuscular Hemoglobin 29.6 pg (27.0-33.0); Mean Corpuscular Volume 94.1 fL (80.0-98.0); NRBC Abs Auto 0.080 X10*3/uL (0.0-0.012); NRBC Pct Auto 0.6 /100WBC (0.0-0.2); Platelet Count 966 X10*3/uL (160-400); Red Blood Count 3.24 X10*6/uL (4.20-5.50); White Blood Count 13.2 X10*3/uL (4.8-10.8)
[2025-05-26 06:24] LABS: Creatinine Clr Calc Pharmacy 3.8; Estimated Glomerular Filt Rate 7
[2025-05-26 06:25] LABS: Anion Gap 19 (12-20); Blood Urea Nitrogen 42 mg/dL (9-16); Calcium 8.1 mg/dL (8.4-10.2); Carbon Dioxide 28 mmol/L (22-29); Chloride 98 mmol/L (96-108); Magnesium 2.3 mg/dL (1.6-2.6); Potassium 4.0 mmol/L (3.3-5.1); Sodium 141 mmol/L (135-145)
[2025-05-26 07:38] VITALS: BP 115/60; PULSE 72; RESP 18; TEMP 36.6; O2SAT 94
[2025-05-26] MEDS: Lidocaine 4 % Patch ADH..PATCH 1 PATCH TRANSDERMA (08:27)
[2025-05-26] MEDS: 0.9 % Sodium Chloride Flush 3 ML SYRINGE IVFLUSH ×3 (08:30→21:40)
[2025-05-26] MEDS: Sevelamer Carbonate Tablet 800 MG TABLET PO ×2 (08:38→16:34)
--- NOTE | 2025-05-26 09:03 | HO.PM.IMPN ---
Subjective Subjective Date of Service: 05/26/25 Interval History: bilateral hip pain Physical Exam Exam: Exam: alert, frail, no acute distress, abd soft, talkative but poor insight. Vital Signs: Vital Signs: Last Vital Signs Temp 97.8 F 05/26/25 07:38 Pulse 72 05/26/25 07:38 Resp 18 05/26/25 07:38 BP 115/60 05/26/25 07:38 Pulse Ox 94 05/26/25 07:38 O2 Del Method Room Air 05/26/25 07:38 BMI result Body Mass Index 15.2 Objective Data Active Medications Acetaminophen (Acetaminophen 325 Mg Tablet) 650 mg PO Q6H PRN PRN Reason: Pain, Mild 1-3,fever,headache Acetaminophen (Acetaminophen 325 Mg Tablet) 975 mg PO TID PRN PRN Reason: Pain, Moderate(Pain Scale 4-6) Acetaminophen/Butalbital/Caffeine (Butalb/Acetamin/Caff 50/325/40 Tablet) 1 tab PO Q12H PRN PRN Reason: Headache Albuterol Sulfate (Albuterol Sulfate 90 Mcg 8 Gm Inhaler) 2 puff INHALE RQ4H PRN PRN Reason: Shortness Of Breath Or Wheezing Aspirin (Aspirin 81 Mg Tab.Chew) 81 mg PO DAILY ON LICENSE OF [facility] Last Admin: 05/26/25 08:30 Dose: 81 mg Documented By: LEN Atorvastatin Calcium (Atorvastatin Calcium 40 Mg Tablet) 40 mg PO BEDTIME ON LICENSE OF [facility] Last Admin: 05/25/25 20:20 Dose: 40 mg Documented By: NESTOR Bisacodyl (Bisacodyl 10 Mg Supp.Rect) 10 mg SD DAILY PRN PRN Reason: Constipation Calcitriol (Calcitriol 0.25 Mcg Capsule) 0.5 mcg PO Q48H ON LICENSE OF [facility] Calcium Carbonate (Calcium Carbonate 750 Mg Tab.Chew) 750 mg PO Q4H PRN PRN Reason: Heartburn Clopidogrel Bisulfate (Clopidogrel Bisulfate 75 Mg Tablet) 75 mg PO DAILY ON LICENSE OF [facility] Last Admin: 05/26/25 08:30 Dose: 75 mg Documented By: LEN Fluticasone/Vilanterol (Fluticasone/Vilanterol 100/25 Blst.W.Dev) 1 puff INHALE RDAILY ON LICENSE OF [facility] Heparin Sodium (Porcine) (Heparin Sodium,Porcine 5,000 Unit/Ml Vial) 5,000 unit SUBCUT Q12H ON LICENSE OF [facility] Last Admin: 05/26/25 06:08 Dose: 5,000 unit Documented By: NESTOR Lidocaine (Lidocaine 4 % Patch Adh..Patch) 1 patch TRANSDERMA Q12H PRN; Protocol PRN Reason: Pain, Mild (Pain Scale 1-3) Last Admin: 05/26/25 08:27 Dose: 1 patch Documented By: LEN Lorazepam (Lorazepam 0.5 Mg Tablet) 0.5 mg PO BID PRN PRN Reason: Anxiety Magnesium Hydroxide (Milk Of Magnesia 30 Ml Oral.Susp) 30 ml PO DAILY PRN PRN Reason: Constipation Melatonin (Melatonin 3 Mg Tablet) 6 mg PO BEDTIME PRN PRN Reason: Insomnia Midodrine (Midodrine Hcl 5 Mg Tablet) 5 mg PO TID ON LICENSE OF [facility] Last Admin: 05/26/25 08:30 Dose: 5 mg Documented By: LEN Montelukast Sodium (Montelukast Sodium 10 Mg Tablet) 10 mg PO BEDTIME ON LICENSE OF [facility] Last Admin: 05/25/25 20:20 Dose: 10 mg Documented By: NESTOR Oxycodone HCl (Oxycodone Hcl Immed Release 5 Mg Tablet) 5 mg PO Q4H PRN PRN Reason: Pain, Severe (Pain Scale 7-10) Last Admin: 05/26/25 06:16 Dose: 5 mg Documented By: NESTOR Pantoprazole Sodium (Pantoprazole Sodium 20 Mg Tablet.Dr) 40 mg PO DAILY@0630 ON LICENSE OF [facility] Last Admin: 05/26/25 06:09 Dose: 40 mg Documented By: NESTOR Senna/Docusate Sodium (Sennosides/Docusate Sodium Tablet) 2 tab PO BID ON LICENSE OF [facility] Last Admin: 05/26/25 08:39 Dose: 2 tab Documented By: LEN Sevelamer Carbonate (Sevelamer Carbonate Tablet 800 Mg Tablet) 800 mg PO TIDWM ON LICENSE OF [facility] Last Admin: 05/26/25 08:38 Dose: 800 mg Documented By: LEN Sodium Biphosphate/Sodium Phosphate (Sodium Phosphate,[place]-Dibasic 133 Ml Enema) 118 ml SD DAILY PRN PRN Reason: Constipation Sodium Chloride (0.9 % Sodium Chloride Flush 3 Ml Syringe) 3 ml IVFLUSH QSHIFT ON LICENSE OF [facility] Last Admin: 05/26/25 08:30 Dose: 3 ml Documented By: LEN Trazodone HCl (Trazodone Hcl 25 Mg Halftab) 25 mg PO BEDTIME TONIO Last Admin: 05/25/25 20:19 Dose: 25 mg Documented By: NESTOR Labs 05/26/25 05:29 05/26/25 05:29 Labs: Laboratory Results - last 24 hr 05/25/25 05/26/25 12:15 05:29 MCV 94.4 94.1 MCH 29.9 29.6 MCHC 31.7 31.5 RDW 18.0 H 17.5 H Plt Count 1066 H* D 966 H MPV 9.9 9.9 Immature Gran % (Auto) 2.1 H Neut % (Auto) 78.4 H Lymph % (Auto) 14.1 L [place] % (Auto) 2.0 Eos % (Auto) 1.4 Baso % (Auto) 2.0 Lymph # (Auto) 1.6 [place] # (Auto) 0.2 Eos # (Auto) 0.2 Baso # (Auto) 0.2 Abs Immat Gran (auto) 0.23 H Absolute Neuts (auto) 8.6 H Absolute Nucleated RBC 0.090 H 0.080 H Nucleated RBC % (auto) 0.8 H 0.6 H Smear Path Review SEE NOTE Anion Gap 16 19 Estim Creat Clear Calc 5.0 3.8 Estimated GFR 8 7 Random Glucose 75 75 Calcium 8.1 L D 8.1 L Magnesium 2.3 Total Bilirubin 0.4 AST 35 H ALT 7 Alkaline Phosphatase 156 H Total Protein 6.7 Albumin 3.0 L Assessment and Plan (1) End stage renal disease: Status: Acute Plan 84F PMH ESRD on HD, hfref, cad, htn, hld, copd, vascular dementia, left renal cancer, FTT, unspecified myeloproliferative disease, presented with abd pain abd pain appears resolved, advance diet as tolerated acute hypokalemia replaced Subacute left pelvic fracture Continue weight-bearing as tolerated pain control End-stage renal disease Continue hemodialysis Phosphate binders Severe protein calorie malnutrition due to likely metastatic renal cancer Discussed with patient's daughter would consider hospice if able to continue dialysis Unspecified myeloproliferative Given dose of Hydrea, given poor prognosis unlikely to benefit from workup Vascular dementia At baseline CAD Aspirin, statin, Plavix Chronic systolic CHF Does not tolerate neuro hormonal due to hypotension DVT prophylaxis with heparin subQ DNR/DNI reason for continued hospitalization:FTT Quality Stroke Does the patient have a stroke diagnosis?: No VTE Prior VTE?: No VTE Risk Level:: Medical - moderate - high VTE Device Contraindication: Treatment Not Indicated VTE Drug Contraindication: N/A - Med Ordered
[2025-05-26 11:17] VITALS: BMI 15.2
--- NOTE | 2025-05-26 11:22 | MHC.CLN ---
CONSULT PT IS SEVERELY MALNOURISHED PT WITH MODERATELY DEPLETED SUBCUTANEOUS FAT AND MUSCLE MASS WITH 21% SIGNIFICANT WT LOSS X1 YEAR AND BMI 15.[address] TAKES CHOCOLATE SUPPLEMENT AT HOME. DOES NOT WANT ENSURE CLEAR. WILL TAKE GELATEIN SUPPLEMENT. ADDING GELATEIN TID (480KCALS, 60G PROTEIN) TO PROMOTE NUTRITIONAL INTAKE. SUPPLEMENT APPROPRIATE WITH DIALYSIS. FOLLOW FOR PO INTAKE AND ENCOURAGE SUPPLEMENTS SEE ALSO FULL CLINICAL NUTRITION ASSESSMENT
--- NOTE | 2025-05-26 11:37 | MHC.CM.PN ---
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 MEDICARE RIGHTS DELIVERED DCP: HOME WITH RESUMPTION OF FAMILY CARE, MI[employer]GRAPHICS SERVICES SUPERVISOR AND HD DAUGHTER WILL TRANSPORT Original Note: PER MD ROUNDS, PTS DAUGHTER IS CONSIDERING HOSPICE IF PT CAN CONTINUE HD [facility] HAS CONFIRMED PT WOULD NOT BE ABLE TO CONTINUE HD IF SHE SIGNED ONTO SERVICE WITH THEM REFERRAL TO [facility] TO DETERMINE IF THEY WOULD BE ABLE TO ACCOMMODATE
--- NOTE | 2025-05-26 12:20 | PM.CNNEP ---
History of Present Illness Reason for Consult Consult date: 05/26/25 Chief Complaint Chief complaint: Abd pain History of Present Illness Narrative: 84 year-old female with pertinent history of ESRD on hemodialysis T/T/S, mood disorder, hfref, cad, hld, vascular dementia, left renal cancer, FTT, myeloproliferative disease, mixed hyperlipidemia, COPD not on home oxygen, chronic back pain with chronic opioid use who presents to the emergency department for abd pain Admitted for further management. Nephrology consulted for ESRD management. Last HD was on Friday. [facility] Past Medical History Medical History ESRD needing dialysis Chronic kidney disease requiring chronic dialysis Compression fx, lumbar spine ESRD (end stage renal disease) CKD (chronic kidney disease) stage 4, GFR 15-29 ml/min Metabolic acidosis Hyperkalemia FLORECITA (acute kidney injury) Anemia CHF (congestive heart failure) Headache Hypertensive urgency CKD (chronic kidney disease) Anxiety and depression Hiatal hernia Chronic anemia Hyperlipidemia Back pain Osteoarthritis Anemia COPD (chronic obstructive pulmonary disease) GERD (gastroesophageal reflux disease) Asthma Hypertension Surgical History Surgical History Hx of breast biopsy History of esophagogastroduodenoscopy (EGD) Hx of colonoscopy History of left-sided carotid endarterectomy History of total right hip arthroplasty History of open reduction and internal fixation (ORIF) procedure History of cholecystectomy H/O of rectopexy History of bowel resection H/O: hysterectomy Social History Social History Household Members: Children Household Members Other:: DAUGHTER LAURECE Housing: Condominium Housing Other:: was currently at assisted living prior to admission Do you presently have visiting nurse or other home services: Yes Unable to assess alcohol history related to: Unknown Alcohol intake: current Alcohol intake frequency: holidays/special occasions only Comment: tylenol 325mg po given & warm blanket, layed on left side Patient Tobacco Use Status: Former Tobacco user Tobacco use type: Cigarette Years Smoked: 20 e-Cigarette/Vaping Use: Never Used Second Hand Smoke Exposure: No Substance Use Type: Marijuana Advance Directives Date on File: 09/04/20 service: No Current occupational status: retired Meds Allergies Allergy/AdvReac Type Severity Reaction Status Date / Time codeine (Codeine) Allergy Mild RASH Verified 05/25/25 11:44 Sulfa (Sulfonamide Allergy Mild HIVES Verified 05/25/25 11:44 Antibiotics) (Sulfa (Sulfonamides)) ibuprofen (From Motrin) AdvReac Mild STOMACH Verified 05/25/25 11:44 UPSET, Rectal bleeding Active Medications: Current Medications Acetaminophen (Acetaminophen 325 Mg Tablet) 650 mg PO Q6H PRN PRN Reason: Pain, Mild 1-3,fever,headache Acetaminophen (Acetaminophen 325 Mg Tablet) 975 mg PO TID PRN PRN Reason: Pain, Moderate(Pain Scale 4-6) Acetaminophen/Butalbital/Caffeine (Butalb/Acetamin/Caff 50/325/40 Tablet) 1 tab PO Q12H PRN PRN Reason: Headache Albuterol Sulfate (Albuterol Sulfate 90 Mcg 8 Gm Inhaler) 2 puff INHALE RQ4H PRN PRN Reason: Shortness Of Breath Or Wheezing Aspirin (Aspirin 81 Mg Tab.Chew) 81 mg PO DAILY [facility] Last Admin: 05/26/25 08:30 Dose: 81 mg Atorvastatin Calcium (Atorvastatin Calcium 40 Mg Tablet) 40 mg PO BEDTIME [facility] Last Admin: 05/25/25 20:20 Dose: 40 mg Bisacodyl (Bisacodyl 10 Mg Supp.Rect) 10 mg [place] DAILY PRN PRN Reason: Constipation Calcitriol (Calcitriol 0.25 Mcg Capsule) 0.5 mcg PO Q48H [facility] Calcium Carbonate (Calcium Carbonate 750 Mg Tab.Chew) 750 mg PO Q4H PRN PRN Reason: Heartburn Clopidogrel Bisulfate (Clopidogrel Bisulfate 75 Mg Tablet) 75 mg PO DAILY [facility] Last Admin: 05/26/25 08:30 Dose: 75 mg Fluticasone/Vilanterol (Fluticasone/Vilanterol 100/25 Blst.W.Dev) 1 puff INHALE RDAILY [facility] Last Admin: 05/26/25 12:04 Dose: Not Given Heparin Sodium (Porcine) (Heparin Sodium,Porcine 5,000 Unit/Ml Vial) 5,000 unit SUBCUT Q12H [facility] Last Admin: 05/26/25 06:08 Dose: 5,000 unit Lidocaine (Lidocaine 4 % Patch Adh..Patch) 1 patch TRANSDERMA Q12H PRN; Protocol PRN Reason: Pain, Mild (Pain Scale 1-3) Last Admin: 05/26/25 08:27 Dose: 1 patch Lorazepam (Lorazepam 0.5 Mg Tablet) 0.5 mg PO BID PRN PRN Reason: Anxiety Magnesium Hydroxide (Milk Of Magnesia 30 Ml Oral.Susp) 30 ml PO DAILY PRN PRN Reason: Constipation Melatonin (Melatonin 3 Mg Tablet) 6 mg PO BEDTIME PRN PRN Reason: Insomnia Midodrine (Midodrine Hcl 5 Mg Tablet) 5 mg PO TID [facility] Last Admin: 05/26/25 08:30 Dose: 5 mg Montelukast Sodium (Montelukast Sodium 10 Mg Tablet) 10 mg PO BEDTIME [facility] Last Admin: 05/25/25 20:20 Dose: 10 mg Oxycodone HCl (Oxycodone Hcl Immed Release 5 Mg Tablet) 5 mg PO Q4H PRN PRN Reason: Pain, Severe (Pain Scale 7-10) Last Admin: 05/26/25 10:17 Dose: 5 mg Pantoprazole Sodium (Pantoprazole Sodium 20 Mg Tablet.Dr) 40 mg PO DAILY@0630 [facility] Last Admin: 05/26/25 06:09 Dose: 40 mg Senna/Docusate Sodium (Sennosides/Docusate Sodium Tablet) 2 tab PO BID [facility] Last Admin: 05/26/25 08:39 Dose: 2 tab Sevelamer Carbonate (Sevelamer Carbonate Tablet 800 Mg Tablet) 800 mg PO TIDWM [facility] Last Admin: 05/26/25 08:38 Dose: 800 mg Sodium Biphosphate/Sodium Phosphate (Sodium Phosphate,[place]-Dibasic 133 Ml Enema) 118 ml [place] DAILY PRN PRN Reason: Constipation Sodium Chloride (0.9 % Sodium Chloride Flush 3 Ml Syringe) 3 ml IVFLUSH QSHIFT [facility] Last Admin: 05/26/25 08:30 Dose: 3 ml Trazodone HCl (Trazodone Hcl 25 Mg Halftab) 25 mg PO BEDTIME [facility] Last Admin: 05/25/25 20:19 Dose: 25 mg Home Medications ?Medication ?Instructions ?Recorded ?Confirmed ?Last Taken ?Type montelukast 10 mg tablet 10 mg PO BEDTIME 07/28/20 05/25/25 06/25/24 History lorazepam 0.5 mg tablet 0.5 mg PO BID PRN Anxiety 08/01/20 05/25/25 12/09/22 History pantoprazole 40 mg tablet,delayed 40 mg PO DAILY@0630 08/01/20 05/25/25 06/25/24 History release atorvastatin 40 mg tablet 40 mg PO BEDTIME 06/19/22 05/25/25 06/25/24 History stcdrrhlsz-mjhntemiacnpf-ouvkqihg 1 tab PO Q12H PRN Headache 12/09/22 05/25/25 Unknown History 50 mg-325 mg-40 mg tablet sevelamer carbonate 800 mg tablet 800 mg PO TIDWM 09/25/23 05/25/25 06/25/24 History gabapentin 100 mg capsule 100 mg PO BEDTIME Pain 11/27/23 05/25/25 11/25/23 History acetaminophen 500 mg tablet 1,000 mg PO TID PRN Pain 05/25/25 05/25/25 Unknown History albuterol sulfate 90 mcg/actuation 2 puff inhalation Q4H PRN 05/25/25 05/25/25 Unknown History aerosol inhaler Shortness Of Breath Or Wheezing aspirin 81 mg tablet 81 mg PO DAILY 05/25/25 05/25/25 Unknown History bisacodyl 10 mg rectal suppository 10 mg [place] DAILY PRN Constipation 05/25/25 05/25/25 Unknown History calcitriol 0.5 mcg capsule 0.5 mcg PO Q48H 05/25/25 05/25/25 Unknown History clopidogrel 75 mg tablet 75 mg PO DAILY 05/25/25 05/25/25 Unknown History fluticasone 100 mcg-salmeterol 50 1 inh inhalation Q12H 05/25/25 05/25/25 Unknown History mcg/dose blistr powdr for inhalation (Advair Diskus) lidocaine 4 % topical cream 1 appl topical TID PRN Pain 05/25/25 05/25/25 Unknown History lidocaine 4 % topical patch 1 patch topical Q12H PRN Pain 05/25/25 05/25/25 Unknown History midodrine 10 mg tablet 5 mg PO TID 05/25/25 05/25/25 Unknown History naloxone 0.4 mg/mL injection 0.4 mg subcut Q3M PRN Opioid 05/25/25 05/25/25 Unknown History solution Overdose oxycodone 5 mg tablet 5 mg PO Q4H PRN Pain 05/25/25 05/25/25 Unknown History sennosides 8.6 mg-docusate sodium 2 tab-cap PO BID 05/25/25 05/25/25 Unknown History 50 mg tablet (Senna with Docusate Sodium) sodium phosphates 19 gram-7 118 ml [place] DAILY PRN Constipation 05/25/25 05/25/25 Unknown History gram/118 mL enema (Fleet Enema) trazodone 50 mg tablet 25 mg PO BEDTIME 05/25/25 05/25/25 Unknown History Physical Exam Exam Exam: cvs: s1s2 Rs; cta Abd; soft Vital Signs: Last Vital Signs Temp 97.8 F 05/26/25 07:38 Pulse 72 05/26/25 07:38 Resp 18 05/26/25 07:38 BP 115/60 05/26/25 07:38 Pulse Ox 94 05/26/25 07:38 O2 Del Method Room Air 05/26/25 07:38 BMI result Body Mass Index 15.2 Results Lab Results 05/26/25 05:29 05/26/25 05:29 Lab results: Chemistry 05/25/25 05/26/25 12:15 05:29 Sodium 142 141 Potassium 2.9 L* D 4.0 D Carbon Dioxide 31 H 28 BUN 33 H 42 H Creatinine 5.07 H* 5.93 H* Calcium 8.1 L D 8.1 L Hematology 05/25/25 05/26/25 12:15 05:29 WBC 11.0 H 13.2 H Hgb 10.1 L 9.6 L Plt Count 1066 H* D 966 H Assessment and Plan (1) End stage renal disease: Status: Acute Plan 83-year-old female with pertinent history of ESRD on hemodialysis T/T/S, mood disorder, essential hypertension, mixed hyperlipidemia, COPD not on home oxygen, chronic back pain with chronic opioid use who presents to the emergency department for evaluation of abd pain . Nephrology consulted for ESRD management. Recent [facility] admit for fall and pelvis fracture - c/b UGI bleed s/p EGD with no acute findings, C diff diarrhea ESRD on HD TTS Last HD was on Friday- pc, has [facility]- however pt doesnot use it Hypotension BP today at target range Chronically, pt takes midodrine 10mg on HD days prn Anemia Hb 9.6, Bone metabolism On Sevelemer 800 mg oral TID with meals and tums 750mg tid PTH 361 (04/23) metabolic acidosis on po bicarb 650mg tid Left renal mass: Noted on CT abdomen pelvis is 1.4 cm enhancing left upper pole renal lesion suspicious for renal cell carcinoma. Daughter is aware of this diagnosis- present on previous CTs as well. It had grown from 1 to 1.5 and currently 1.4 unchanged from most recent CT. - Follow-up with urology Thrombocytosis: Per [facility] oncology - differential is myeloproliferative neoplasms such as CML, PV or ET. - needs outpatient fu . on asa / plavix Recommendations Will resume and arrange for her HD today, and then continue her TTS schedule Resume home dose phos binders - Continue midodrine 10 mg TID (hold if SBP >130) - Continue calcitriol 0.25 mcg TTS no epo Dose meds per HD Procedures Date of Service Date of Service: 05/26/25
[2025-05-26 15:43] VITALS: BP 136/60; PULSE 68; RESP 16; TEMP 36.9; O2SAT 95
[2025-05-26 16:43] LABS: Appearance Urine Cloudy; Glucose Urine UA Negative (Negative); PH 6.0 (5.0-9.0); Specific Gravity - Urine 1.025 (1.005-1.025); UMIC TRIGGER UACC YES
[2025-05-26 17:01] LABS: UACC Culture Trigger YES
[2025-05-26 20:00] VITALS: BP 147/65; PULSE 69; RESP 18; TEMP 36.4; O2SAT 96
[2025-05-26] MEDS: traZODone HCL 25 MG HALFTAB PO (21:39)
[2025-05-27 03:53] VITALS: BP 138/65; PULSE 74; RESP 16; TEMP 36.7; O2SAT 95
[2025-05-27 07:41] VITALS: BP 106/57; PULSE 75; RESP 16; TEMP 35.7; O2SAT 99
[2025-05-27] MEDS: 0.9 % Sodium Chloride Flush 3 ML SYRINGE IVFLUSH ×3 (09:25→23:44)
[2025-05-27] MEDS: oxyCODONE HCl Immed Release 5 MG TABLET PO ×3 (09:25→21:46)
[2025-05-27] MEDS: Sevelamer Carbonate Tablet 800 MG TABLET PO ×3 (09:25→17:22)
[2025-05-27] MEDS: Fluticasone/Vilanterol 100/25 BLST.W.DEV 1 PUFF INHALE (09:25)
--- NOTE | 2025-05-27 09:33 | HO.PM.IMPN ---
Subjective Subjective Date of Service: 05/27/25 Interval History: pain better controlled Physical Exam Exam: Exam: cvs: s1s2 Rs; cta Abd; soft Vital Signs: Vital Signs: Last Vital Signs Temp 96.3 F L 05/27/25 07:41 Pulse 75 05/27/25 07:41 Resp 16 05/27/25 07:41 BP 106/57 L 05/27/25 07:41 Pulse Ox 99 05/27/25 07:41 O2 Del Method Room Air 05/27/25 07:41 BMI result Body Mass Index 15.2 Objective Data Active Medications Acetaminophen (Acetaminophen 325 Mg Tablet) 650 mg PO Q6H PRN PRN Reason: Pain, Mild 1-3,fever,headache Acetaminophen (Acetaminophen 325 Mg Tablet) 975 mg PO TID PRN PRN Reason: Pain, Moderate(Pain Scale 4-6) Acetaminophen/Butalbital/Caffeine (Butalb/Acetamin/Caff 50/325/40 Tablet) 1 tab PO Q12H PRN PRN Reason: Headache Albuterol Sulfate (Albuterol Sulfate 90 Mcg 8 Gm Inhaler) 2 puff INHALE RQ4H PRN PRN Reason: Shortness Of Breath Or Wheezing Aspirin (Aspirin 81 Mg Tab.Chew) 81 mg PO DAILY [facility] Last Admin: 05/26/25 08:30 Dose: 81 mg Documented By: LEN Atorvastatin Calcium (Atorvastatin Calcium 40 Mg Tablet) 40 mg PO BEDTIME [facility] Last Admin: 05/26/25 21:39 Dose: 40 mg Documented By: NESTOR Bisacodyl (Bisacodyl 10 Mg Supp.Rect) 10 mg [place] DAILY PRN PRN Reason: Constipation Calcitriol (Calcitriol 0.25 Mcg Capsule) 0.5 mcg PO Q48H [facility] Calcium Carbonate (Calcium Carbonate 750 Mg Tab.Chew) 750 mg PO Q4H PRN PRN Reason: Heartburn Clopidogrel Bisulfate (Clopidogrel Bisulfate 75 Mg Tablet) 75 mg PO DAILY [facility] Last Admin: 05/26/25 08:30 Dose: 75 mg Documented By: LEN Fluticasone/Vilanterol (Fluticasone/Vilanterol 100/25 Blst.W.Dev) 1 puff INHALE RDAILY [facility] Last Admin: 05/26/25 12:04 Dose: Not Given Documented By: BELINDA Non-Admin Reason: Not In Room Heparin Sodium (Porcine) (Heparin Sodium,Porcine 5,000 Unit/Ml Vial) 5,000 unit SUBCUT Q12H [facility] Last Admin: 05/27/25 06:02 Dose: 5,000 unit Documented By: NESTOR Lidocaine (Lidocaine 4 % Patch Adh..Patch) 1 patch TRANSDERMA Q12H PRN; Protocol PRN Reason: Pain, Mild (Pain Scale 1-3) Last Admin: 05/26/25 08:27 Dose: 1 patch Documented By: LEN Lorazepam (Lorazepam 0.5 Mg Tablet) 0.5 mg PO BID PRN PRN Reason: Anxiety Magnesium Hydroxide (Milk Of Magnesia 30 Ml Oral.Susp) 30 ml PO DAILY PRN PRN Reason: Constipation Melatonin (Melatonin 3 Mg Tablet) 6 mg PO BEDTIME PRN PRN Reason: Insomnia Midodrine (Midodrine Hcl 5 Mg Tablet) 5 mg PO TID [facility] Last Admin: 05/26/25 21:39 Dose: 5 mg Documented By: NESTOR Montelukast Sodium (Montelukast Sodium 10 Mg Tablet) 10 mg PO BEDTIME [facility] Last Admin: 05/26/25 21:39 Dose: 10 mg Documented By: NESTOR Oxycodone HCl (Oxycodone Hcl Immed Release 5 Mg Tablet) 5 mg PO Q4H PRN PRN Reason: Pain, Severe (Pain Scale 7-10) Last Admin: 05/26/25 21:39 Dose: 5 mg Documented By: NESTOR Pantoprazole Sodium (Pantoprazole Sodium 20 Mg Tablet.) 40 mg PO DAILY@0630 [facility] Last Admin: 05/27/25 06:02 Dose: 40 mg Documented By: NESTOR Senna/Docusate Sodium (Sennosides/Docusate Sodium Tablet) 2 tab PO BID [facility] Last Admin: 05/26/25 21:40 Dose: 2 tab Documented By: NESTOR Sevelamer Carbonate (Sevelamer Carbonate Tablet 800 Mg Tablet) 800 mg PO TIDWM [facility] Last Admin: 05/26/25 16:34 Dose: 800 mg Documented By: LEN Sodium Biphosphate/Sodium Phosphate (Sodium Phosphate,[place]-Dibasic 133 Ml Enema) 118 ml [place] DAILY PRN PRN Reason: Constipation Sodium Chloride (0.9 % Sodium Chloride Flush 3 Ml Syringe) 3 ml IVFLUSH QSHIFT [facility] Last Admin: 05/26/25 21:40 Dose: 3 ml Documented By: NESTOR Trazodone HCl (Trazodone Hcl 25 Mg Halftab) 25 mg PO BEDTIME [facility] Last Admin: 05/26/25 21:39 Dose: 25 mg Documented By: NESTOR Labs 05/26/25 05:29 05/26/25 05:29 Labs: Laboratory Results - last 24 hr 05/26/25 16:36 Urine Color Dark Yellow Urine Appearance Cloudy Urine pH 6.0 Ur Specific [place] 1.025 Urine Protein 100 (2+) H Urine Glucose (UA) Negative Urine Ketones Negative Urine Blood Trace H Urine Nitrite Negative Ur Leukocyte Esterase Moderate (2+) H Urine RBC 0-2 Urine WBC >50 H Ur Squamous Epith Cells >20 Urine Bacteria 4+ Hyaline Casts 0-2 Urine Yeast Present Microbiology Microbiology Results: Microbiology 05/26/25 17:02 Urine Culture - Preliminary Urine clean catch - Clean Catch Midstream Culture too young to evaluate. Assessment and Plan (1) End stage renal disease: Status: Acute Plan 84F PMH ESRD on HD, hfref, cad, htn, hld, copd, vascular dementia, left renal cancer, FTT, unspecified myeloproliferative disease, presented with abd pain abd pain appears resolved, advance diet as tolerated acute hypokalemia replaced Subacute left pelvic fracture Continue weight-bearing as tolerated pain control End-stage renal disease Continue hemodialysis Phosphate binders Severe protein calorie malnutrition due to likely metastatic renal cancer unlikely to benefit from further work up Unspecified myeloproliferative Given dose of Hydrea, given poor prognosis unlikely to benefit from workup Vascular dementia At baseline CAD Aspirin, statin, Plavix Chronic systolic CHF Does not tolerate neuro hormonal due to hypotension DVT prophylaxis with heparin subQ DNR/DNI reason for continued hospitalization:dispo planning Quality Stroke Does the patient have a stroke diagnosis?: No VTE Prior VTE?: No VTE Risk Level:: Medical - moderate - high VTE Device Contraindication: Treatment Not Indicated VTE Drug Contraindication: N/A - Med Ordered
--- NOTE | 2025-05-27 11:13 | MHC.CLN ---
F/U PT IS SEVERELY MALNOURISHED. REGULAR DIET IN PLACE. GELATEIN TID (480KCALS, 60G PROTEIN) TO PROMOTE NUTRITIONAL INTAKE. SUPPLEMENT APPROPRIATE WITH DIALYSIS. POOR PO NOTED. EULALIO=11, SKIN WITH ABRASION TO BUTTOCKS. FOLLOW FOR PO INTAKE AND ENCOURAGE SUPPLEMENTS.
--- NOTE | 2025-05-27 12:41 | MHC.CM.PN ---
Addendum entered by Kassi Schaffer 05/27/25 14:40: [facility] was notified that the patient will discharge Friday. He will resume HD on Friday05/30/25. Clinical info has been sent to [facility]. They will need DC Summary Faxed to [phone]. [phone]. T/W spoke with Poppy. She stated that she would notify the patient's nurse of the discharge plan. CM will follow. Original Note: Per MD rounds patient will discharge to home on Friday. Patient's dtr Eamon is preparing the home for the patient. She has delivery scheduled for additional equipment needed. DP per MD likely Friday Discharge home. Patient will resume [employer] services + HD .
[2025-05-27 15:39] VITALS: BP 144/67
[2025-05-27 15:51] VITALS: BP 144/67; PULSE 68; RESP 16; TEMP 36.2
[2025-05-27 19:25] VITALS: BP 147/68; PULSE 76; RESP 18; TEMP 36; O2SAT 96
[2025-05-27] MEDS: traZODone HCL 25 MG HALFTAB PO (21:46)
[2025-05-27 21:49] VITALS: BP 145/70
[2025-05-28 04:00] VITALS: BP 155/83; PULSE 79; RESP 18; TEMP 36; O2SAT 97
--- NOTE | 2025-05-28 04:10 | PC.NURSE ---
late entry; 05/27/25 bedtime midodrine dose not given, bp 145/70
[2025-05-28] MEDS: oxyCODONE HCl Immed Release 5 MG TABLET PO ×4 (05:17→21:51)
[2025-05-28 07:39] VITALS: BP 142/65; PULSE 72; RESP 19; TEMP 36.3; O2SAT 97
[2025-05-28] MEDS: Sevelamer Carbonate Tablet 800 MG TABLET PO ×3 (07:47→17:22)
[2025-05-28] MEDS: 0.9 % Sodium Chloride Flush 3 ML SYRINGE IVFLUSH ×3 (07:48→20:28)
[2025-05-28] MEDS: Fluticasone/Vilanterol 100/25 BLST.W.DEV 1 PUFF INHALE (08:25)
[2025-05-28 08:26] VITALS: PULSE 76; RESP 18; O2SAT 95
--- NOTE | 2025-05-28 09:04 | P.PNIM_ITS ---
Subjective Subjective Date of Service: 05/28/25 Interval History: nausea improved, pain improved, but still present Physical Exam 2 Exam: Exam: cvs: s1s2 Rs; cta Abd; soft Vital Signs: Vital Signs: Last Vital Signs Temp 97.4 F 05/28/25 07:39 Pulse 76 05/28/25 08:26 Resp 18 05/28/25 08:26 BP 142/65 H 05/28/25 07:39 Pulse Ox 97 05/28/25 07:39 O2 Del Method Room Air 05/28/25 07:39 BMI result Body Mass Index 15.2 Objective Data Active Medications Acetaminophen (Acetaminophen 325 Mg Tablet) 650 mg PO Q6H PRN PRN Reason: Pain, Mild 1-3,fever,headache Acetaminophen (Acetaminophen 325 Mg Tablet) 975 mg PO TID PRN PRN Reason: Pain, Moderate(Pain Scale 4-6) Acetaminophen/Butalbital/Caffeine (Butalb/Acetamin/Caff 50/325/40 Tablet) 1 tab PO Q12H PRN PRN Reason: Headache Albuterol Sulfate (Albuterol Sulfate 90 Mcg 8 Gm Inhaler) 2 puff INHALE RQ4H PRN PRN Reason: Shortness Of Breath Or Wheezing Aspirin (Aspirin 81 Mg Tab.Chew) 81 mg PO DAILY [facility] Last Admin: 05/28/25 07:48 Dose: 81 mg Documented By: JEFE Atorvastatin Calcium (Atorvastatin Calcium 40 Mg Tablet) 40 mg PO BEDTIME [facility] Last Admin: 05/27/25 21:46 Dose: 40 mg Documented By: TUMTANG Bisacodyl (Bisacodyl 10 Mg Supp.Rect) 10 mg [place] DAILY PRN PRN Reason: Constipation Calcitriol (Calcitriol 0.25 Mcg Capsule) 0.5 mcg PO Q48H [facility] Last Admin: 05/27/25 09:24 Dose: 0.5 mcg Documented By: COLBURDebra Calcium Carbonate (Calcium Carbonate 750 Mg Tab.Chew) 750 mg PO Q4H PRN PRN Reason: Heartburn Clopidogrel Bisulfate (Clopidogrel Bisulfate 75 Mg Tablet) 75 mg PO DAILY [facility] Last Admin: 05/28/25 07:47 Dose: 75 mg Documented By: JEFE Fluticasone/Vilanterol (Fluticasone/Vilanterol 100/25 Blst.W.Dev) 1 puff INHALE RDAILY [facility] Last Admin: 05/28/25 08:25 Dose: 1 puff Documented By: MEGHAN Heparin Sodium (Porcine) (Heparin Sodium,Porcine 5,000 Unit/Ml Vial) 5,000 unit SUBCUT Q12H [facility] Last Admin: 05/28/25 05:18 Dose: 5,000 unit Documented By: MARIA ISABEL Hydroxyurea (Hydroxyurea 500 Mg Capsule) 500 mg PO BID [facility] Last Admin: 05/28/25 07:48 Dose: 500 mg Documented By: JEFE Lidocaine (Lidocaine 4 % Patch Adh..Patch) 1 patch TRANSDERMA Q12H PRN; Protocol PRN Reason: Pain, Mild (Pain Scale 1-3) Last Admin: 05/26/25 08:27 Dose: 1 patch Documented By: LEN Lorazepam (Lorazepam 0.5 Mg Tablet) 0.5 mg PO BID PRN PRN Reason: Anxiety Magnesium Hydroxide (Milk Of Magnesia 30 Ml Oral.Susp) 30 ml PO DAILY PRN PRN Reason: Constipation Melatonin (Melatonin 3 Mg Tablet) 6 mg PO BEDTIME PRN PRN Reason: Insomnia Midodrine (Midodrine Hcl 5 Mg Tablet) 5 mg PO TID [facility] Last Admin: 05/28/25 07:47 Dose: 5 mg Documented By: JEFE Montelukast Sodium (Montelukast Sodium 10 Mg Tablet) 10 mg PO BEDTIME [facility] Last Admin: 05/27/25 21:46 Dose: 10 mg Documented By: MARIA ISABEL Oxycodone HCl (Oxycodone Hcl Immed Release 5 Mg Tablet) 5 mg PO Q4H PRN PRN Reason: Pain, Severe (Pain Scale 7-10) Last Admin: 05/28/25 05:17 Dose: 5 mg Documented By: MARIA ISABEL Pantoprazole Sodium (Pantoprazole Sodium 20 Mg Tablet.) 40 mg PO DAILY@0630 [facility] Last Admin: 05/28/25 05:21 Dose: 40 mg Documented By: MARIA ISABEL Senna/Docusate Sodium (Sennosides/Docusate Sodium Tablet) 2 tab PO BID [facility] Last Admin: 05/28/25 07:47 Dose: 2 tab Documented By: JEFE Sevelamer Carbonate (Sevelamer Carbonate Tablet 800 Mg Tablet) 800 mg PO TIDWM [facility] Last Admin: 05/28/25 07:47 Dose: 800 mg Documented By: JEFE Sodium Biphosphate/Sodium Phosphate (Sodium Phosphate,[place]-Dibasic 133 Ml Enema) 118 ml [place] DAILY PRN PRN Reason: Constipation Sodium Chloride (0.9 % Sodium Chloride Flush 3 Ml Syringe) 3 ml IVFLUSH QSHIFT [facility] Last Admin: 05/28/25 07:48 Dose: 3 ml Documented By: JEFE Trazodone HCl (Trazodone Hcl 25 Mg Halftab) 25 mg PO BEDTIME [facility] Last Admin: 05/27/25 21:46 Dose: 25 mg Documented By: TUMASY Labs 05/26/25 05:29 05/26/25 05:29 Microbiology Microbiology Results: Microbiology 05/26/25 17:02 Urine Culture - Preliminary Urine clean catch - Clean Catch Midstream Culture too young to evaluate. Assessment and Plan (1) End stage renal disease: Status: Acute Plan 84F PMH ESRD on HD, hfref, cad, htn, hld, copd, vascular dementia, left renal cancer, FTT, unspecified myeloproliferative disease, presented with abd pain abd pain appears resolved, advance diet as tolerated acute hypokalemia replaced Subacute left pelvic fracture Continue weight-bearing as tolerated pain control End-stage renal disease Continue hemodialysis Phosphate binders Severe protein calorie malnutrition due to likely metastatic renal cancer unlikely to benefit from further work up Unspecified myeloproliferative Given dose of Hydrea, given poor prognosis unlikely to benefit from workup Vascular dementia At baseline CAD Aspirin, statin, Plavix Chronic systolic CHF Does not tolerate neuro hormonal due to hypotension DVT prophylaxis with heparin subQ DNR/DNI reason for continued hospitalization:dispo planning, pain control Quality Stroke Does the patient have a stroke diagnosis?: No VTE Prior VTE?: No VTE Risk Level:: Medical - moderate - high VTE Device Contraindication: Treatment Not Indicated VTE Drug Contraindication: N/A - Med Ordered
[2025-05-28 15:13] VITALS: BP 115/55; PULSE 84; RESP 18; TEMP 36.3; O2SAT 98
[2025-05-28 19:45] VITALS: BP 131/66; PULSE 80; RESP 18; TEMP 36; O2SAT 96
[2025-05-28] MEDS: traZODone HCL 25 MG HALFTAB PO (20:25)
--- NOTE | 2025-05-28 21:54 | PC.NURSE ---
night time midodrine not given. patients BP 131/66
[2025-05-29 04:00] VITALS: BP 130/60; PULSE 79; RESP 18; TEMP 36.2; O2SAT 95
[2025-05-29] MEDS: oxyCODONE HCl Immed Release 5 MG TABLET PO ×4 (06:15→22:56)
[2025-05-29 06:52] LABS: Anion Gap 16 (12-20); Blood Urea Nitrogen 26 mg/dL (9-16); Calcium 9.0 mg/dL (8.4-10.2); Carbon Dioxide 28 mmol/L (22-29); Chloride 98 mmol/L (96-108); Creatinine Clr Calc Pharmacy 5.6; Estimated Glomerular Filt Rate 10; Potassium 4.3 mmol/L (3.3-5.1); Sodium 138 mmol/L (135-145)
[2025-05-29 07:03] LABS: Hematocrit 29.7 % (37.0-47.0); Hemoglobin 9.5 g/dl (12.0-16.0); Mean Corpuscular HGB Conc 32.0 g/dl (31.0-35.0); Mean Corpuscular Hemoglobin 30.2 pg (27.0-33.0); Mean Corpuscular Volume 94.3 fL (80.0-98.0); NRBC Abs Auto 0.050 X10*3/uL (0.0-0.012); NRBC Pct Auto 0.5 /100WBC (0.0-0.2); Platelet Count 979 X10*3/uL (160-400); Red Blood Count 3.15 X10*6/uL (4.20-5.50); White Blood Count 10.3 X10*3/uL (4.8-10.8)
[2025-05-29 08:00] VITALS: BP 82/41; PULSE 70; RESP 16; TEMP 36.4; O2SAT 98
[2025-05-29] MEDS: 0.9 % Sodium Chloride Flush 3 ML SYRINGE IVFLUSH ×3 (08:09→22:56)
[2025-05-29] MEDS: Sevelamer Carbonate Tablet 800 MG TABLET PO ×3 (08:09→17:04)
--- NOTE | 2025-05-29 08:22 | P.PNIM_ITS ---
Subjective Subjective Date of Service: 05/29/25 Interval History: nausea improved, pain improved, but still present Physical Exam 2 Exam: Exam: cvs: s1s2 Rs; cta Abd; soft Vital Signs: Vital Signs: Last Vital Signs Temp 97.5 F 05/29/25 08:00 Pulse 70 05/29/25 08:00 Resp 16 05/29/25 08:00 BP 82/41 L 05/29/25 08:00 Pulse Ox 98 05/29/25 08:00 O2 Del Method Room Air 05/29/25 08:00 BMI result Body Mass Index 15.2 Objective Data Active Medications Acetaminophen (Acetaminophen 325 Mg Tablet) 650 mg PO Q6H PRN PRN Reason: Pain, Mild 1-3,fever,headache Acetaminophen (Acetaminophen 325 Mg Tablet) 975 mg PO TID PRN PRN Reason: Pain, Moderate(Pain Scale 4-6) Acetaminophen/Butalbital/Caffeine (Butalb/Acetamin/Caff 50/325/40 Tablet) 1 tab PO Q12H PRN PRN Reason: Headache Albuterol Sulfate (Albuterol Sulfate 90 Mcg 8 Gm Inhaler) 2 puff INHALE RQ4H PRN PRN Reason: Shortness Of Breath Or Wheezing Aspirin (Aspirin 81 Mg Tab.Chew) 81 mg PO DAILY [facility] Last Admin: 05/29/25 08:09 Dose: 81 mg Documented By: JEFE Atorvastatin Calcium (Atorvastatin Calcium 40 Mg Tablet) 40 mg PO BEDTIME [facility] Last Admin: 05/28/25 20:25 Dose: 40 mg Documented By: JERRY Bisacodyl (Bisacodyl 10 Mg Supp.Rect) 10 mg VA DAILY PRN PRN Reason: Constipation Calcitriol (Calcitriol 0.25 Mcg Capsule) 0.5 mcg PO Q48H [facility] Last Admin: 05/29/25 08:08 Dose: 0.5 mcg Documented By: JEFE Calcium Carbonate (Calcium Carbonate 750 Mg Tab.Chew) 750 mg PO Q4H PRN PRN Reason: Heartburn Clopidogrel Bisulfate (Clopidogrel Bisulfate 75 Mg Tablet) 75 mg PO DAILY [facility] Last Admin: 05/29/25 08:08 Dose: 75 mg Documented By: JEFE Fluticasone/Vilanterol (Fluticasone/Vilanterol 100/25 Blst.W.Dev) 1 puff INHALE RDAILY [facility] Last Admin: 05/28/25 08:25 Dose: 1 puff Documented By: MEGHAN Heparin Sodium (Porcine) (Heparin Sodium,Porcine 5,000 Unit/Ml Vial) 5,000 unit SUBCUT Q12H [facility] Last Admin: 05/29/25 06:14 Dose: 5,000 unit Documented By: JERRY Hydroxyurea (Hydroxyurea 500 Mg Capsule) 500 mg PO BID [facility] Last Admin: 05/29/25 08:08 Dose: 500 mg Documented By: JEFE Lidocaine (Lidocaine 4 % Patch Adh..Patch) 1 patch TRANSDERMA Q12H PRN; Protocol PRN Reason: Pain, Mild (Pain Scale 1-3) Last Admin: 05/26/25 08:27 Dose: 1 patch Documented By: LEN Lorazepam (Lorazepam 0.5 Mg Tablet) 0.5 mg PO BID PRN PRN Reason: Anxiety Magnesium Hydroxide (Milk Of Magnesia 30 Ml Oral.Susp) 30 ml PO DAILY PRN PRN Reason: Constipation Melatonin (Melatonin 3 Mg Tablet) 6 mg PO BEDTIME PRN PRN Reason: Insomnia Last Admin: 05/29/25 00:18 Dose: 6 mg Documented By: JERRY Midodrine (Midodrine Hcl 5 Mg Tablet) 5 mg PO TID [facility] Last Admin: 05/29/25 08:09 Dose: 5 mg Documented By: JEFE Montelukast Sodium (Montelukast Sodium 10 Mg Tablet) 10 mg PO BEDTIME [facility] Last Admin: 05/28/25 20:25 Dose: 10 mg Documented By: JERRY Oxycodone HCl (Oxycodone Hcl Immed Release 5 Mg Tablet) 5 mg PO Q4H PRN PRN Reason: Pain, Severe (Pain Scale 7-10) Last Admin: 05/29/25 06:15 Dose: 5 mg Documented By: JERRY Pantoprazole Sodium (Pantoprazole Sodium 20 Mg Tablet.) 40 mg PO DAILY@0630 [facility] Last Admin: 05/29/25 06:15 Dose: 40 mg Documented By: EJRRY Senna/Docusate Sodium (Sennosides/Docusate Sodium Tablet) 2 tab PO BID [facility] Last Admin: 05/29/25 08:09 Dose: 2 tab Documented By: JEFE Sevelamer Carbonate (Sevelamer Carbonate Tablet 800 Mg Tablet) 800 mg PO TIDWM [facility] Last Admin: 05/29/25 08:09 Dose: 800 mg Documented By: JEFE Sodium Biphosphate/Sodium Phosphate (Sodium Phosphate,Quay-Dibasic 133 Ml Enema) 118 ml VA DAILY PRN PRN Reason: Constipation Sodium Chloride (0.9 % Sodium Chloride Flush 3 Ml Syringe) 3 ml IVFLUSH QSHIFT [facility] Last Admin: 05/29/25 08:09 Dose: 3 ml Documented By: EJFE Trazodone HCl (Trazodone Hcl 25 Mg Halftab) 25 mg PO BEDTIME [facility] Last Admin: 05/28/25 20:25 Dose: 25 mg Documented By: JERRY Labs 05/29/25 05:59 05/29/25 05:59 Labs: Laboratory Results - last 24 hr 05/29/25 05:59 MCV 94.3 MCH 30.2 MCHC 32.0 RDW 18.7 H Plt Count 979 H MPV 10.8 Absolute Nucleated RBC 0.050 H Nucleated RBC % (auto) 0.5 H Anion Gap 16 Estim Creat Clear Calc 5.6 Estimated GFR 10 Random Glucose 79 Calcium 9.0 D Microbiology Microbiology Results: Microbiology 05/26/25 17:02 Urine Culture - Final Urine clean catch - Clean Catch Midstream Assessment and Plan (1) End stage renal disease: Status: Acute Plan 84F PMH ESRD on HD, hfref, cad, htn, hld, copd, vascular dementia, left renal cancer, FTT, unspecified myeloproliferative disease, presented with abd pain abd pain appears resolved, advance diet as tolerated acute hypokalemia replaced Subacute left pelvic fracture Continue weight-bearing as tolerated pain control End-stage renal disease Continue hemodialysis Phosphate binders Severe protein calorie malnutrition due to likely metastatic renal cancer unlikely to benefit from further work up Unspecified myeloproliferative Given dose of Hydrea, given poor prognosis unlikely to benefit from workup Vascular dementia At baseline CAD Aspirin, statin, Plavix Chronic systolic CHF Does not tolerate neuro hormonal due to hypotension DVT prophylaxis with heparin subQ DNR/DNI reason for continued hospitalization:dispo planning, pain control Quality Stroke Does the patient have a stroke diagnosis?: No VTE Prior VTE?: No VTE Risk Level:: Medical - moderate - high VTE Device Contraindication: Treatment Not Indicated VTE Drug Contraindication: N/A - Med Ordered
[2025-05-29 08:35] VITALS: BP 123/56; PULSE 73
[2025-05-29 15:34] VITALS: BP 90/54; PULSE 66; RESP 16; TEMP 36.8; O2SAT 95
[2025-05-29 17:06] VITALS: BP 140/67; PULSE 65
[2025-05-29] MEDS: traZODone HCL 25 MG HALFTAB PO (19:08)
[2025-05-29 19:57] VITALS: BP 125/62; PULSE 71; RESP 16; TEMP 36.2; O2SAT 96
[2025-05-30] MEDS: oxyCODONE HCl Immed Release 5 MG TABLET PO ×3 (02:55→12:05)
[2025-05-30 03:58] VITALS: BP 126/61; PULSE 67; RESP 16; TEMP 36.1; O2SAT 96
[2025-05-30 07:47] VITALS: BP 151/58; PULSE 69; RESP 18; TEMP 36.3; O2SAT 98
[2025-05-30] MEDS: Fluticasone/Vilanterol 100/25 BLST.W.DEV 1 PUFF INHALE (07:47)
[2025-05-30 07:48] VITALS: PULSE 67; RESP 16; O2SAT 96
[2025-05-30] MEDS: 0.9 % Sodium Chloride Flush 3 ML SYRINGE IVFLUSH (08:37)
[2025-05-30] MEDS: Sevelamer Carbonate Tablet 800 MG TABLET PO ×2 (08:37→12:05)
[2025-05-30 08:40] VITALS: BP 127/63
--- NOTE | 2025-05-30 08:44 | PM.DS ---
DS: Providers Provider Date of Service: 05/30/25 Date of admission: 05/25/25 17:26 Date of discharge: 05/30/25 Primary care physician: Fran Alegria MD Consults: 05/25/25 17:56 Consult to Nephrology Routine Consulting Provider: Yuriy [facility] Reason for consultation: esrd 05/27/25 00:30 Consult to Wound Care Routine Reason for consultation: abrasion buttocks DS: Diagnosis Discharge Diagnosis (1) End stage renal disease: Status: Acute DS: Summary Hospital Course Hospital Course: from initial hpi: 84F PMH ESRD on HD, hfref, cad, htn, hld, copd, vascular dementia, left renal cancer, FTT, unspecified myeloproliferative disease, presented with abd pain. patient was recently discharged from [facility] [place]hab, after prolonged stay (04/12/25-05/03/25) for fall, left hip fracture, upper gi bleed, cdif. Now being sent from rehab for complaints of abdominal pain. In ED patient noted to have thrombocytosis of 1066, hypokalemia of 2.9, imaging revealed known left renal mass with question of bony metastases, question of rectal wall thickening, subacute left pelvic fracture, chronic compression fracture of L2, chronic inferior right pubic ramus fracture. hospital course: Patient was admitted for abdominal pain which appears resolved and patient is tolerating diet. Noted to have acute hypokalemia which was replaced. For subacute left pelvic fracture she should continue weight-bearing as tolerated using oxycodone for pain control, monitor for constipation. For end-stage renal disease was continued on hemodialysis and phosphate binders. For severe protein calorie malnutrition due to likely metastatic renal cancer as well as vascular dementia she is unlikely to benefit from further workup should focus on symptom management. For unspecified myeloproliferative disorder with severe thrombocytosis was started on Hydrea. Given poor prognosis unlikely to benefit from further workup but can follow up with Hematology as outpatient if desired. We will also continue on aspirin. For coronary artery disease was continued on dual antiplatelet and statin. For chronic systolic CHF patient not on any neuro hormonal treatment due to hypotension. Appears euvolemic. Patient will be discharged home with VNA. Time Attestation Discharge Coordination Time (in mins): 34 Quality: Safe Use of Opioids Does Pt have an Active Cancer Diagnosis on the Problem List?: Yes Opioid Measure Date for CMS Report: 04/30/25 Opioid Measure Time for CMS Report: 08:44 Quality: Stroke Does the patient have a stroke diagnosis?: No Physical Exam Exam: Exam: cvs: s1s2 Rs; cta Abd; soft Vital Signs: Vital Signs: Last Vital Signs Temp 97.3 F 05/30/25 07:47 Pulse 67 05/30/25 07:48 Resp 16 05/30/25 07:48 BP 151/58 H 05/30/25 07:47 Pulse Ox 98 05/30/25 07:47 O2 Del Method Room Air 05/30/25 07:47 BMI result Body Mass Index 15.2 DS: Data Data Completed and Pending Completed studies during hospitalization [Text1]: Procedures Performance of Urinary Filtration, Intermittent, Less than 6 Hours Per Day (11/26/23) Reposition Right Tibia with Internal Fixation Device, Open Approach (07/31/20) Transfusion of Nonautologous Red Blood Cells into Peripheral Vein, Percutaneous Approach (12/09/22) Discharge Plan Discharge Anticipated Discharge Date/Time: 05/30/25 08:41 Patient Disposition: Home Health Service Discharge Diagnosis: hypokalemia, pain Referrals: Fran Alegria MD [Primary Care Provider, Internal Medicine] - 1 Week Discharge Medications: New hydroxyurea 500 mg Capsule 500 mg PO BID Qty: 180 0RF Continued montelukast 10 mg tablet 10 mg PO BEDTIME lorazepam 0.5 mg Tablet 0.5 mg PO BID PRN (Reason: Anxiety) pantoprazole 40 mg Tablet,Delayed Release (Dr/Ec) 40 mg PO DAILY@0630 atorvastatin 40 mg tablet 40 mg PO BEDTIME [id number]-[id number] 50-325-40 mg tablet 1 tab PO Q12H PRN (Reason: Headache) sevelamer carbonate 800 mg tablet 800 mg PO TIDWM gabapentin 100 mg capsule 100 mg PO BEDTIME lidocaine 4 % Adhesive Patch,Medicated 1 patch TOPICAL Q12H PRN (Reason: Pain) trazodone 50 mg Tablet 25 mg PO BEDTIME naloxone 0.4 mg/mL Solution 0.4 mg SUBCUT Q3M PRN (Reason: Opioid Overdose) Rx Instructions: NTExceed 10 mg total dose/episode sennosides-docusate sodium [Senna with Docusate Sodium] 8.6-50 mg Tablet 2 tab-cap PO BID lidocaine 4 % Cream 1 appl TOPICAL TID PRN (Reason: Pain) clopidogrel 75 mg tablet 75 mg PO DAILY acetaminophen 500 mg Tablet 1,000 mg PO TID PRN (Reason: Pain) bisacodyl 10 mg Suppository 10 mg NC DAILY PRN (Reason: Constipation) Rx Instructions: If no results from [facility]. calcitriol 0.5 mcg Capsule 0.5 mcg PO Q48H Fleet Enema 19-7 gram/118 mL Enema 118 ml NC DAILY PRN (Reason: Constipation) Rx Instructions: If Bisacodyl ineffective. aspirin 81 mg Tablet 81 mg PO DAILY fluticasone propion-salmeterol [Advair Diskus] 100-50 mcg/dose Blister With Device 1 inh INHALATION Q12H albuterol sulfate 90 mcg/actuation Hfa Aerosol Inhaler 2 puff INHALATION Q4H PRN (Reason: Shortness Of Breath Or Wheezing) oxycodone 5 mg Tablet 5 mg PO Q4H PRN (Reason: Pain) midodrine 10 mg Tablet 5 mg PO TID Rx Instructions: do not give last dose of day after 6PM or within 4 hrs of bedtime Discharge Orders: Discharge Order (Routine); Ordered 05/30/25 Ordered By: Dameon Mathis Diet: Advance to usual diet Activity on Discharge: As tolerated Stand Alone Forms: Patient Portal Discharge page Print Language: Romansh Care Plan Goals: manage pain Health Concerns: pelvic fractures, consitpation, elevated thrombocytes, likely metastatic kidney cancer Plan of Treatment: pain control, starting hydrea Assessment: see above
--- NOTE | 2025-05-30 08:46 | P.F2F_ITS ---
Service Date Service Date: 05/30/25 Encounter Date of encounter: 05/30/25 Reasons for Services Signs and symptoms assessed: Recent pelvic fracture difficulty ambulating Reason for half-way: medication management, medication treatment and teach disease management Reason for physical therapy: home safety and mobility, therapeutic exercises and gait/transfer training Homebound: Leaving the home is medically contraindicated at this time without the asist of a device and/or another person due th the listed conditions above and below. Reason homebound: pain with ambulation Certification: Based on the above findings, I certify that this patient is confined to the home and needs intermittent half-way care, physical therapy and/or speech therapy, or continues to need occupational therapy. The patient is under my care, and I have initiated the establishment of the plan of care. The patient will be followed by a physician who will periodically review the plan of care. Time Spent With Patient Time: Total time managing care of this patient today ____ minutes.
[2025-05-30 13:05] VITALS: BP 128/76; PULSE 86; RESP 18; TEMP 36.4; O2SAT 97
--- NOTE | 2025-05-30 13:48 | MHC.CM.PN ---
PT DISCHARGED HOME TODAY WITH [facility] TO TRANSPORT
== END 2025-05-30 13:26 | disposition home health service (06) | DRG 640 ==
LOC: HO.ED 17:37 → HO.EDOVER 17:44 → HO.S3 19:16
PROVIDERS: Physician Assistant Medical; Admitting Provider Internal Medicine; Emergency Provider Emergency Medicine; PCP Internal Medicine; Visit Provider Internal Medicine
DX: E87.6 Hypokalemia (principal); E43 Unspecified severe protein-calorie malnutrition; N18.6 End stage renal disease; I13.2 Hypertensive heart and chronic kidney disease with heart failure and with stage 5 chronic kidney disease, or end stage renal disease; S32.592A Other specified fracture of left pubis, initial encounter for closed fracture; S32.591A Other specified fracture of right pubis, initial encounter for closed fracture; Z68.1 Body mass index [BMI] 19.9 or less, adult; D47.1 Chronic myeloproliferative disease; C64.2 Malignant neoplasm of left kidney, except renal pelvis; I50.22 Chronic systolic (congestive) heart failure; Z99.2 Dependence on renal dialysis; Z66 Do not resuscitate; I95.9 Hypotension, unspecified; D63.1 Anemia in chronic kidney disease; I25.10 Atherosclerotic heart disease of native coronary artery without angina pectoris; D75.838 Other thrombocytosis; E78.2 Mixed hyperlipidemia; K59.00 Constipation, unspecified; F01.C0 Vascular dementia, severe, without behavioral disturbance, psychotic disturbance, mood disturbance, and anxiety; Z87.891 Personal history of nicotine dependence; Z79.51 Long term (current) use of inhaled steroids; Z79.82 Long term (current) use of aspirin; Z79.899 Other long term (current) drug therapy
CPT/HCPCS: 36415; 74176; 74177; 80048; 80053; 81001; 83735; 85025; 85027; 87086; 90999; 93970; 94640; 99285; J0131; J1644; J2405; Q9967

== ENCOUNTER → 2025-05-25 12:32 | Outpatient (BNV) | payer MEDICARE, SELFPAY | PROVIDERS: Visit Provider Radiology Diagnostic Radiology | DX: D41.02 Neoplasm of uncertain behavior of left kidney (principal); R18.8 Other ascites; R22.43 Localized swelling, mass and lump, lower limb, bilateral | CPT/HCPCS: 74176; 74177; 93970 ==

== ENCOUNTER → 2025-05-25 17:26 | Outpatient (BNV) | payer MEDICARE, SELFPAY | PROVIDERS: Admitting Provider Internal Medicine; Emergency Provider Emergency Medicine; Visit Provider Internal Medicine | DX: N18.6 End stage renal disease (principal); Z99.2 Dependence on renal dialysis | CPT/HCPCS: 99223; 99232; 99239; G0180 ==